=== PATIENT | female | born 1950 | race Caucasian/White ===

== ENCOUNTER 2019-01-02 23:22 | Inpatient (IN) | payer MEDICARE, OTHER ==
--- NOTE | 2019-01-02 23:31 | ED ---
Abdominal Pain HPI - General Stated Complaint: Bowel obstruction Time Seen by Provider: 01/02/19 23:29 Source: RN notes reviewed, old records reviewed - History of Present Illness Initial Comments: This is a 60-year-old female the ER for evaluation. Patient was essay for evaluation regarding abdominal pain distention nausea and vomiting. Patient is accepted in transfer from outside facility for evaluation treatment regarding small bowel obstruction. Patient has no fevers, no other change in symptoms MD Complaint: abdominal pain -: days(s) Location: diffuse, epigastric, suprapubic Radiation: epigastric, suprapubic Severity: severe Severity scale (1-10): 9 Quality: stabbing, aching Consistency: intermittent Improves With: nothing Worsens With: nothing Associated Symptoms: nausea, vomiting Treatments Prior to Arrival: prescription analgesics - Related Data Home Medications Medication Instructions Recorded Confirmed ALPRAZolam [Xanax] 0.5 mg PO TID PRN 01/02/19 01/02/19 Aspirin EC [Ecotrin Low Dose] 81 mg PO DAILY 01/02/19 01/02/19 Capecitabine [Xeloda] 500 mg PO TID 01/02/19 01/02/19 Dronabinol [Marinol] 5 mg PO DAILY 01/02/19 01/02/19 HYDROcodone/APAP 7.5-325MG [[place] 1 tab PO BID PRN 01/02/19 01/02/19 7.5-325] Metoclopramide HCl [Reglan] 5 mg PO BID 01/02/19 01/02/19 Morphine Sulfate Ir [MSIR] 15 mg PO Q4H PRN 01/02/19 01/02/19 Pantoprazole Sodium [Protonix] 40 mg PO DAILY 01/02/19 01/02/19 Zolpidem Tartrate [Ambien Cr] 12.5 mg PO HS 01/02/19 01/02/19 Allergies Allergy/AdvReac Type Severity Reaction Status Date / Time No Known Allergies Allergy Unverified 01/02/19 23:53 Review of Systems ROS Statement: Those systems with pertinent positive or pertinent negative responses have been documented in the HPI. ROS Other: All systems not noted in ROS Statement are negative. General Exam General appearance: alert, in no apparent distress, anxious Head exam: Present: atraumatic, normocephalic, normal inspection Eye exam: Present: normal appearance, PERRL, EOMI. Absent: scleral icterus, conjunctival injection, periorbital swelling ENT exam: Present: normal exam, mucous membranes moist Neck exam: Present: normal inspection. Absent: tenderness, meningismus, lymphadenopathy Respiratory exam: Present: normal lung sounds bilaterally. Absent: respiratory distress, wheezes, rales, rhonchi, stridor Cardiovascular Exam: Present: regular rate, normal rhythm, normal heart sounds. Absent: systolic murmur, diastolic murmur, rubs, gallop, clicks GI/Abdominal exam: Present: soft, distended, tenderness, normal bowel sounds. Absent: guarding, rebound, rigid Extremities exam: Present: normal inspection, full ROM, normal capillary refill. Absent: tenderness, pedal edema, joint swelling, calf tenderness Back exam: Present: normal inspection Neurological exam: Present: alert, oriented X3, CN II-XII intact Psychiatric exam: Present: normal affect, normal mood Skin exam: Present: warm, dry, intact, normal color. Absent: rash Course Vital Signs 01/02/19 23:31 Temperature 98.4 F Pulse Rate 76 Respiratory 16 Rate Blood Pressure 126/80 O2 Sat by Pulse 99 Oximetry - Reevaluation(s) Reevaluation #1: 01/03/19 00:47 Medical record and transfer paperwork Reevaluation #2: 01/03/19 00:47 Patient is still with persistent nausea vomiting and abdominal pain Medical Decision Making - Medical Decision Making 68 female the ER for evaluation, patient will be admitted as she is accepted for small bowel obstruction. Disposition Clinical Impression: Small bowel obstruction Disposition: ADMITTED IP TO [facility] Condition: Fair Is patient prescribed a controlled substance at d/c from ED?: No Referrals: None,Stated [Primary Care Provider] - 1-2 days
[2019-01-03] MEDS ORDERED: ONDANSETRON 4 MG/2 ML VIAL IVP STA (00:02)
[2019-01-03] MEDS ORDERED: HYDROmorphone 1 MG/ML 1 ML SYRINGE IVP STA (00:02)
[2019-01-03] MEDS ORDERED: PANTOPRAZOLE 40 MG/10 ML VIAL IVP STA (00:48)
[2019-01-03] MEDS ORDERED: SODIUM CHLORIDE 0.9% 1,000 ML IV ONE (00:48)
[2019-01-03 03:18] VITALS: BMI 19.9
[2019-01-03] MEDS: ALPRAZolam 0.5 MG TAB PO PRN ×2 (03:32→22:34)
[2019-01-03] MEDS: ZOLPIDEM 10 MG TAB PO PRN ×2 (03:32→22:34)
[2019-01-03] MEDS: POTASSIUM CHLORIDE 10 MEQ in WATER FOR INJECTION 1 100ML.BAG IVPB SCH ×4 (04:42→11:02)
--- NOTE | 2019-01-03 06:34 | P.HPIM ---
History of Present Illness H&P Date: 01/03/19 Chief Complaint: Small bowel obstruction 68-year-old female with history of stage IV breast cancer Patient transferred from [facility] to our facility for general surgery evaluation due to small bowel obstruction. Patient comes in today with 3 day history of GI symptoms, started with nausea and vomiting brownish in color denies coffee-ground vomiting denies hematemesis was associated with abdominal pain and cramping and then vomiting resolved however pain persisted and got worse patient has poor appetite and now is associated with very frequent diarrhea nonstop again nonbloody non-melanotic. Patient describes the pain as sharp crampy pain mainly in the epigastric region and radiates slightly down 8 out of 10 in severity gets worse with eating anything and eases down with bowel rest. She only vomited couple times initially but she says now she has no vomiting. Denies any fevers but she is always having chills. She had bowel obstruction in the past due to adhesions. At [facility] blood test was unremarkable except for some hypokalemia and chronic anemia. CT of the abdomen showed multiple masses in the large bowel and soft tissue encasement of the aorta celiac trunk and SMA arteries Along with right nephroureteral stent with questionable function at this point. Patient was admitted for general surgery evaluation and management of SBO Review of Systems Pertinent positives as noted in HPI. All other systems were reviewed and are negative Past Medical History Additional Past Medical History / Comment(s): stage 4 breast CA History of Any Multi-Drug Resistant Organisms: None Reported Additional Past Surgical History / Comment(s): MAsectomy, abdominal surg Past Psychological History: No Psychological Hx Reported Smoking Status: Never smoker Past Alcohol Use History: None Reported Past Drug Use History: None Reported - Past Family History Father Family Medical History: Cancer Mother Family Medical History: Cancer Medications and Allergies Home Medications Medication Instructions Recorded Confirmed Type ALPRAZolam [Xanax] 0.5 mg PO TID PRN 01/02/19 01/02/19 History Aspirin EC [Ecotrin Low Dose] 81 mg PO DAILY 01/02/19 01/02/19 History Capecitabine [Xeloda] 500 mg PO TID 01/02/19 01/02/19 History Dronabinol [Marinol] 5 mg PO DAILY 01/02/19 01/02/19 History HYDROcodone/APAP 7.5-325MG [[place] 1 tab PO BID PRN 01/02/19 01/02/19 History 7.5-325] Metoclopramide HCl [Reglan] 5 mg PO BID 01/02/19 01/02/19 History Morphine Sulfate Ir [MSIR] 15 mg PO Q4H PRN 01/02/19 01/02/19 History Pantoprazole Sodium [Protonix] 40 mg PO DAILY 01/02/19 01/02/19 History Zolpidem Tartrate [Ambien Cr] 12.5 mg PO HS 01/02/19 01/02/19 History Allergies Allergy/AdvReac Type Severity Reaction Status Date / Time No Known Allergies Allergy Unverified 01/02/19 23:53 Physical Exam Vitals: Vital Signs Temp Pulse Resp BP Pulse Ox 01/02/19 23:31 98.4 F 76 16 126/80 99 Intake and Output 01/02/19 01/02/19 01/03/19 14:59 22:59 06:59 Other: Weight 49.442 kg Constitutional: No acute distress, conversant, pleasant, cachectic Eyes: Anicteric sclerae, moist conjunctiva, no lid-lag Pupils equal round reactive to light ENMT: NC/AT Oropharynx clear, no erythema, or exudates Neck: Supple, FROM, no masses, or JVD No carotid bruits No thyromegaly Lungs: Clear to auscultation Clear to percussion Normal respiratory effort, no accessory muscle use Cardiovascular: Heart regular in rate and rhythm, No murmurs, gallops, or rubs No peripheral edema Abdominal: Soft, no distention Diffuse discomfort to deep palpation, no guarding, rebound or rigidity Abdomen moving with respiration Normoactive bowel sounds No hepatomegaly, No splenomegaly No palpable mass No abdominal wall hernia noted Skin: Normal temperature, tone, texture, turgor No induration No subcutaneous nodules No rash, lesions No ulcers Extremities: No digital cyanosis No clubbing Pedal pulses intact and symmetrical Radial pulses intact and symmetrical No calf tenderness Psychiatric: Alert and oriented to person, place and time Appropriate affect fair judgment Neuro Muscles Strength 4/5 in all 4 extremities Sensation to light touch grossly present throughout Cranial nerves II-XII grossly intact No focal sensory deficits Lymphatics: no palpable cervical or supraclavicular , or inguinal lymph nodes Assessment and Plan Assessment: 68-year-old female with history of stage IV breast cancer transferred to our facility for surgical evaluation due to small bowel obstruction patient admitted as an inpatient with anticipated length of stay more than 48 hours. She was also found to have anemia and hypokalemia patient was started on IV fluids and pain control Plan: Small bowel obstruction, stage IV metastatic breast cancer with peritoneal masses, with history of adhesions Nothing by mouth IV fluid hydration General surgery evaluation Pain control Chronic anemia Continue to monitor Patient denies any evidence of bleeding Hypokalemia replace IV Follow-up levels in the morning along with magnesium Acute diarrhea could be post obstructive diarrhea versus C. diff Check C. diff Symptomatic control IV fluid hydration CT findings of soft tissue encasement of the aorta, celiac trunk, and SMA. Also suggested right nephroureteral stent function questionable CODE STATUS: No code DVT prophylaxis: Heparin subcu 3 times a day Discussed with: Patient, ER, RN Anticipated discharge: 48-[address]: Home A total of 60 minutes was spent on the care of this complex patient more than 50% of the time was spent in counseling and care coordination.
[2019-01-03 06:48] LABS: Anisocytosis Marked; Basophils % (A) 1 %; Eosinophils # (A) 0.1 k/uL (0-0.7); Eosinophils % (A) 3 %; HCT 28.9 % (34.0-46.0); HGB 9.4 gm/dL (11.4-16.0); Lymphocytes # (A) 1.3 k/uL (1.0-4.8); Lymphocytes % (A) 28 %; MCH 33.1 pg (25.0-35.0); MCHC 32.6 g/dL (31.0-37.0); MCV 101.7 fL (80.0-100.0); Macrocytosis Marked; Mean Platelet Volume 6.4; Monocytes # (A) 0.4 k/uL (0-1.0); Monocytes % (A) 8 %; Neutrophils # (A) 2.7 k/uL (1.3-7.7); Neutrophils % (A) 58 %; Platelet Count 216 k/uL (150-450); RBC 2.84 m/uL (3.80-5.40); WBC 4.6 k/uL (3.8-10.6)
[2019-01-03 07:02] LABS: ALT 15 U/L (9-52); AST 14 U/L (14-36); African American GFR (CKD) >90 (>60 ml/min/1.73 sqM); Albumin 2.3 g/dL (3.5-5.0); Alkaline Phosphatase 40 U/L (38-126); Anion Gap 7 mmol/L; Blood Urea Nitrogen 9 mg/dL (7-17); Carbon Dioxide 22 mmol/L (22-30); Chloride 104 mmol/L (98-107); Glucose 85 mg/dL (74-99); Magnesium 1.5 mg/dL (1.6-2.3); Phosphorus 3.8 mg/dL (2.5-4.5); Potassium 3.7 mmol/L (3.5-5.1); Sodium 133 mmol/L (137-145); Total Bilirubin 0.2 mg/dL (0.2-1.3); Total Protein 4.7 g/dL (6.3-8.2)
[2019-01-03 07:17] LABS: RDW 26.5 % (11.5-15.5)
[2019-01-03] MEDS ORDERED: HEPARIN SODIUM,PORCINE 5,000 UNIT/ML 1 ML VIAL SQ SCH (08:00)
[2019-01-03] MEDS: HYDROmorphone 1 MG/ML 1 ML SYRINGE IVP PRN ×4 (08:18→22:34)
[2019-01-03] MEDS: ONDANSETRON 4 MG/2 ML VIAL IVP PRN ×2 (08:18→15:53)
[2019-01-03 09:06] LABS: Mixed Population RBC Present
[2019-01-03 09:07] LABS: Poikilocytosis (M) Present
[2019-01-03] MEDS: [UNRECOGNIZED DRUG - OTHER] PO SCH ×3 (13:05→20:46)
[2019-01-03] MEDS: CAPECITABINE 500 MG PO SCH ×3 (13:05→20:46)
--- NOTE | 2019-01-03 13:26 | P.GSCN ---
History of Present Illness Consult date: 01/03/19 Reason for Consult: SBO Requesting physician: Tushar Munoz History of present illness: CHIEF COMPLAINT: SBO HISTORY OF PRESENT ILLNESS: 68 year old female who was transferred from [facility] secondary to abdominal pain. Patient had computed giana ography scan completed at outside facility revealing dilated small bowel loops suggestive of bowel obstruction. Multiple masses in the large bowel may be the cause of this obstruction. Patient reports a history of breast cancer 10-12 years ago. She reports having a mammogram in April 2016 which was negative. She states the following spring she felt a lump in her breast. A biopsy was performed and patient was diagnosed with stage IV metastatic breast cancer. She states she is aware of masses in her abdomen. She follows with Dr. George Clarke out of [facility]. She reports she also has been evaluated at [facility] by Dr. Brice. She is taking oral chemotherapy, Xeloda, 3 times a day. She reports abdominal pain, diarrhea, nausea, and vomiting prior to hospitalization. Patient reports mild nausea this morning. No further emesis. No diarrhea currently. PAST MEDICAL HISTORY: See list. PAST SURGICAL HISTORY: See list. SOCIAL HISTORY: No illicit drug use. REVIEW OF SYSTEMS: CONSTITUTIONAL: Denies fever or chills. HEENT: Denies blurred vision, vision changes, or eye pain. Denies hemoptysis CARDIOVASCULAR: Denies chest pain or pressure. RESPIRATORY: No shortness of breath. GASTROINTESTINAL: Refer to HPI for pertinent findings HEMATOLOGIC: Denies bleeding disorders. GENITOURINARY: Denies any blood in urine. SKIN: Denies pruitis. Denies rash. PHYSICAL EXAM: VITAL SIGNS: Reviewed. GENERAL: Well-developed in no acute distress. HEENT: No sclera icterus. Extraocular movements grossly intact. Moist buccal mucosa. Head is atraumatic, normocephalic. ABDOMEN: Soft. Nondistended. Mild tenderness. Positive bowel sounds. NEUROLOGIC: Alert and oriented. Cranial nerves II through XII grossly intact. ASSESSMENT: 1. Small bowel obstruction 2. Stage IV breast cancer with multiple large masses in colon per CT PLAN: Continue NPO. Continue IV fluids. No NG tube unless patients nausea worsens or she begins vomiting. No surgical intervention recommended. Continue conservative measures and supportive care. Nurse practitioner note has been reviewed by physician. Signing provider agrees with the documented findings, assessment, and plan of care. Past Medical History Past Medical History: Cancer Additional Past Medical History / Comment(s): stage 4 breast CA History of Any Multi-Drug Resistant Organisms: None Reported Past Surgical History: Appendectomy, Cholecystectomy, Hysterectomy Additional Past Surgical History / Comment(s): MAsectomy, abdominal surg Past Psychological History: No Psychological Hx Reported Smoking Status: Never smoker Past Alcohol Use History: None Reported Past Drug Use History: None Reported - Past Family History Father Family Medical History: Cancer Mother Family Medical History: Cancer Medications and Allergies Home Medications Medication Instructions Recorded Confirmed Type ALPRAZolam [Xanax] 0.5 mg PO TID PRN 01/02/19 01/02/19 History Aspirin EC [Ecotrin Low Dose] 81 mg PO DAILY 01/02/19 01/02/19 History Capecitabine [Xeloda] 500 mg PO TID 01/02/19 01/02/19 History Dronabinol [Marinol] 5 mg PO DAILY 01/02/19 01/02/19 History HYDROcodone/APAP 7.5-325MG [[place] 1 tab PO BID PRN 01/02/19 01/02/19 History 7.5-325] Metoclopramide HCl [Reglan] 5 mg PO BID 01/02/19 01/02/19 History Morphine Sulfate Ir [MSIR] 15 mg PO Q4H PRN 01/02/19 01/02/19 History Pantoprazole Sodium [Protonix] 40 mg PO DAILY 01/02/19 01/02/19 History Zolpidem Tartrate [Ambien Cr] 12.5 mg PO HS 01/02/19 01/02/19 History Allergies Allergy/AdvReac Type Severity Reaction Status Date / Time No Known Allergies Allergy Unverified 01/02/19 23:53 Surgical - Exam Vital Signs Temp Pulse Resp BP Pulse Ox 98.4 F 76 16 126/80 99 01/02/19 23:31 01/02/19 23:31 01/02/19 23:31 01/02/19 23:31 01/02/19 23:31 Results - Labs 01/03/19 05:57 01/03/19 05:57 Abnormal Lab Results - Last 24 Hours (Table) 01/03/19 01/03/19 Range/Units 05:57 05:57 RBC 2.84 L (3.80-5.40) m/uL Hgb 9.4 L (11.4-16.0) gm/dL Hct 28.9 L (34.0-46.0) % MCV 101.7 H (80.0-100.0) fL RDW 26.5 H (11.5-15.5) % Macrocytosis Marked A Sodium 133 L (137-145) mmol/L Creatinine 0.41 L (0.52-1.04) mg/dL Calcium 8.0 L (8.4-10.2) mg/dL Magnesium 1.5 L (1.6-2.3) mg/dL Total Protein 4.7 L (6.3-8.2) g/dL Albumin 2.3 L (3.5-5.0) g/dL Diabetes panel 01/03/19 Range/Units 05:57 Sodium 133 L (137-145) mmol/L Potassium 3.7 (3.5-5.1) mmol/L Chloride 104 (98-107) mmol/L Carbon Dioxide 22 (22-30) mmol/L BUN 9 (7-17) mg/dL Creatinine 0.41 L (0.52-1.04) mg/dL Glucose 85 (74-99) mg/dL Calcium 8.0 L (8.4-10.2) mg/dL AST 14 (14-36) U/L ALT 15 (9-52) U/L Alkaline Phosphatase 40 (38-126) U/L Total Protein 4.7 L (6.3-8.2) g/dL Albumin 2.3 L (3.5-5.0) g/dL Calcium panel 01/03/19 Range/Units 05:57 Calcium 8.0 L (8.4-10.2) mg/dL Phosphorus 3.8 (2.5-4.5) mg/dL Albumin 2.3 L (3.5-5.0) g/dL Pituitary panel 01/03/19 Range/Units 05:57 Sodium 133 L (137-145) mmol/L Potassium 3.7 (3.5-5.1) mmol/L Chloride 104 (98-107) mmol/L Carbon Dioxide 22 (22-30) mmol/L BUN 9 (7-17) mg/dL Creatinine 0.41 L (0.52-1.04) mg/dL Glucose 85 (74-99) mg/dL Calcium 8.0 L (8.4-10.2) mg/dL Adrenal panel 01/03/19 Range/Units 05:57 Sodium 133 L (137-145) mmol/L Potassium 3.7 (3.5-5.1) mmol/L Chloride 104 (98-107) mmol/L Carbon Dioxide 22 (22-30) mmol/L BUN 9 (7-17) mg/dL Creatinine 0.41 L (0.52-1.04) mg/dL Glucose 85 (74-99) mg/dL Calcium 8.0 L (8.4-10.2) mg/dL Total Bilirubin 0.2 (0.2-1.3) mg/dL AST 14 (14-36) U/L ALT 15 (9-52) U/L Alkaline Phosphatase 40 (38-126) U/L Total Protein 4.7 L (6.3-8.2) g/dL Albumin 2.3 L (3.5-5.0) g/dL
--- NOTE | 2019-01-03 15:05 | P.GSCN ---
History of Present Illness Consult date: 01/03/19 Reason for Consult: Hydronephrosis Requesting physician: Dennys Brito History of present illness: The patient is a 68 year old woman with Stage IV breast cancer. She has a right ureteral stent, which was placed by Dr. Mota approximately 10 weeks ago. Her regular urologist is Dr. Gauthier at [facility]. She experienced urgency with incontinence following stent placement, but this has improved with the use of Myrbetriq. The stent is to be removed on 01/25/2019. She recently moved from [place] to [place]. She was admitted with a 3 day history of abdominal pain and distension, nausea and vomiting. She has a history of bowel obstruction in the past due to adhesions. CT of the abdomen showed multiple masses in the large bowel and soft tissue encasement of the aorta celiac trunk and SMA arteries. The right ureteral stent is noted to be properly positioned. There is evidence of right hydronephrosis, but contrast uptake and excretion is symmetrical. She denies flank pain. Review of Systems - Constitutional Reports chills, Denies fever - Gastrointestinal Reports abdominal pain, Reports nausea, Reports vomiting - Genitourinary Genitourinary: Denies flank pain Past Medical History Past Medical History: Cancer Additional Past Medical History / Comment(s): stage 4 breast CA History of Any Multi-Drug Resistant Organisms: None Reported Past Surgical History: Appendectomy, Cholecystectomy, Hysterectomy Additional Past Surgical History / Comment(s): MAsectomy, abdominal surg Past Psychological History: No Psychological Hx Reported Smoking Status: Never smoker Past Alcohol Use History: None Reported Past Drug Use History: None Reported - Past Family History Father Family Medical History: Cancer Mother Family Medical History: Cancer Medications and Allergies Home Medications Medication Instructions Recorded Confirmed Type ALPRAZolam [Xanax] 0.5 mg PO TID PRN 01/02/19 01/02/19 History Aspirin EC [Ecotrin Low Dose] 81 mg PO DAILY 01/02/19 01/02/19 History Capecitabine [Xeloda] 500 mg PO TID 01/02/19 01/02/19 History Dronabinol [Marinol] 5 mg PO DAILY 01/02/19 01/02/19 History HYDROcodone/APAP 7.5-325MG [[place] 1 tab PO BID PRN 01/02/19 01/02/19 History 7.5-325] Metoclopramide HCl [Reglan] 5 mg PO BID 01/02/19 01/02/19 History Morphine Sulfate Ir [MSIR] 15 mg PO Q4H PRN 01/02/19 01/02/19 History Pantoprazole Sodium [Protonix] 40 mg PO DAILY 01/02/19 01/02/19 History Zolpidem Tartrate [Ambien Cr] 12.5 mg PO HS 01/02/19 01/02/19 History Allergies Allergy/AdvReac Type Severity Reaction Status Date / Time No Known Allergies Allergy Unverified 01/02/19 23:53 Surgical - Exam Vital Signs Temp Pulse Resp BP Pulse Ox 98.4 F 76 16 126/80 99 01/02/19 23:31 01/02/19 23:31 01/02/19 23:31 01/02/19 23:31 01/02/19 23:31 - General well developed, well nourished, no distress - Respiratory normal respiratory effort - Abdomen Abdomen: soft, non tender, no guarding, no rigid, no rebound - Psychiatric oriented to time, oriented to person, oriented to place, speech is normal, memory intact Results - Labs 01/03/19 05:57 01/03/19 05:57 Abnormal Lab Results - Last 24 Hours (Table) 01/03/19 01/03/19 Range/Units 05:57 05:57 RBC 2.84 L (3.80-5.40) m/uL Hgb 9.4 L (11.4-16.0) gm/dL Hct 28.9 L (34.0-46.0) % MCV 101.7 H (80.0-100.0) fL RDW 26.5 H (11.5-15.5) % Macrocytosis Marked A Sodium 133 L (137-145) mmol/L Creatinine 0.41 L (0.52-1.04) mg/dL Calcium 8.0 L (8.4-10.2) mg/dL Magnesium 1.5 L (1.6-2.3) mg/dL Total Protein 4.7 L (6.3-8.2) g/dL Albumin 2.3 L (3.5-5.0) g/dL Diabetes panel 01/03/19 Range/Units 05:57 Sodium 133 L (137-145) mmol/L Potassium 3.7 (3.5-5.1) mmol/L Chloride 104 (98-107) mmol/L Carbon Dioxide 22 (22-30) mmol/L BUN 9 (7-17) mg/dL Creatinine 0.41 L (0.52-1.04) mg/dL Glucose 85 (74-99) mg/dL Calcium 8.0 L (8.4-10.2) mg/dL AST 14 (14-36) U/L ALT 15 (9-52) U/L Alkaline Phosphatase 40 (38-126) U/L Total Protein 4.7 L (6.3-8.2) g/dL Albumin 2.3 L (3.5-5.0) g/dL Calcium panel 01/03/19 Range/Units 05:57 Calcium 8.0 L (8.4-10.2) mg/dL Phosphorus 3.8 (2.5-4.5) mg/dL Albumin 2.3 L (3.5-5.0) g/dL Pituitary panel 01/03/19 Range/Units 05:57 Sodium 133 L (137-145) mmol/L Potassium 3.7 (3.5-5.1) mmol/L Chloride 104 (98-107) mmol/L Carbon Dioxide 22 (22-30) mmol/L BUN 9 (7-17) mg/dL Creatinine 0.41 L (0.52-1.04) mg/dL Glucose 85 (74-99) mg/dL Calcium 8.0 L (8.4-10.2) mg/dL Adrenal panel 01/03/19 Range/Units 05:57 Sodium 133 L (137-145) mmol/L Potassium 3.7 (3.5-5.1) mmol/L Chloride 104 (98-107) mmol/L Carbon Dioxide 22 (22-30) mmol/L BUN 9 (7-17) mg/dL Creatinine 0.41 L (0.52-1.04) mg/dL Glucose 85 (74-99) mg/dL Calcium 8.0 L (8.4-10.2) mg/dL Total Bilirubin 0.2 (0.2-1.3) mg/dL AST 14 (14-36) U/L ALT 15 (9-52) U/L Alkaline Phosphatase 40 (38-126) U/L Total Protein 4.7 L (6.3-8.2) g/dL Albumin 2.3 L (3.5-5.0) g/dL Assessment and Plan Plan: I explained to the patient that the mere presence of hydronephrosis does not indicate that the ureteral stent is malfunctioning. Given the lack of flank pain, normal serum creatinine level, and symmetrical uptake and excretion of IV contrast noted on CT scan, I do not suspect that the stent is malfunctioning. I have suggested she follow up with Dr. Gauthier as planned. She indicated that she may wish to transfer her urologic care to me, given that she recently moved to [place], and I provided her with my card to schedule a follow-up appointment as an outpatient. Please notify me if I can be of any further assistance during this hospitalization. Time with Patient: Greater than 30
--- NOTE | 2019-01-03 15:10 | P.PN ---
Subjective Progress Note Date: 01/03/19 The patient is a 68-year-old female with a PMH of multiple abdominal procedures (cholecystectomy, appendectomy, hysterectomy), multiple small bowel obstructions, stage IV metastatic breast cancer (follows at [facility], w/ mets in large bowel) currently on Xeloda oral chemotherapy oral chemotherapy, presented to the ED as a transfer from [facility] with complaints of abdominal pain, vomiting, and diarrhea. The patient noted that her symptoms started suddenly yesterday which prompted her to go to the [facility]. She notes that her symptoms are similar to her previous episodes of SBOs. She noted that she previously was having diarrhea yesterday, multiple bouts, though states that it has resolved since this morning. She also denied any additional episodes of vomiting since this morning. Deneid fever or chills. She notes that her pain was 4/10 at the time of interview, nonradiating, epigastric, cramping in nature. Patient had undergone extensive evaluation at [facility] CT abd had showed multiple masses in large bowel. The patient was subsequently admitted to our service for evaluation by surgery. Objective - Vital Signs Vital signs: Vital Signs Temp 98.3 F 01/03/19 07:19 Pulse 73 01/03/19 07:19 Resp 16 01/03/19 07:19 BP 90/55 01/03/19 07:19 Pulse Ox 98 01/03/19 07:19 Intake & Output 01/02/19 01/03/19 01/03/19 18:59 06:59 18:59 Weight 49.442 kg Other: # Voids 2 - Exam General: Non-toxic, in no acute distress, appears stated age, normal weight HEENT: NC/AT, anicteric sclerae, moist conjunctiva, no lid-lag, PERRLA Cardiovascular: S1/S2 wnl, no murmurs, rubs, or gallops Lungs: Clear to auscultation, normal respiratory effort, no accessory muscle use Abdominal: Soft, mild epigastric tenderness to palpation, non-distended, no guarding, rebound, or rigidity Skin: Warm, dry Extremities: No edema or contractures Psychiatric: Alert and oriented to person, place and time, appropriate affect Neuro: CN II-XII grossly intact, Strength 5/5 in all 4 extremities, Speech intact, Sensation to light touch grossly intact throughout - Labs CBC & Chem 7: 01/03/19 05:57 01/03/19 05:57 Labs: Abnormal Lab Results - Last 24 Hours (Table) 01/03/19 01/03/19 Range/Units 05:57 05:57 RBC 2.84 L (3.80-5.40) m/uL Hgb 9.4 L (11.4-16.0) gm/dL Hct 28.9 L (34.0-46.0) % MCV 101.7 H (80.0-100.0) fL RDW 26.5 H (11.5-15.5) % Macrocytosis Marked A Sodium 133 L (137-145) mmol/L Creatinine 0.41 L (0.52-1.04) mg/dL Calcium 8.0 L (8.4-10.2) mg/dL Magnesium 1.5 L (1.6-2.3) mg/dL Total Protein 4.7 L (6.3-8.2) g/dL Albumin 2.3 L (3.5-5.0) g/dL Assessment and Plan Plan: Small bowel obstruction, in setting of stage IV metastatic breast cancer and multiple abdominal surgeries with adhesions -Surgery recommendations appreciated -Continue with nothing by mouth for now -NG tube if the patient begins to vomit -Pain control -IVFs Hyponatremia -Monitor for now Chronic anemia -Monitor for now -No signs of active bleeding -Stable Diarrhea, resolved Hypokalemia, resolved Protein calorie malnutrition -In setting of stage IV malignancy undergoing chemotherapy DVT prophylaxis Lovenox Discussed with: Patient Anticipated discharge date: 1-[address]: Home A total of 35 minutes was spent on the care of this complex patient more than 50% of the time was spent in counseling and care coordination.
[2019-01-04] MEDS: CAPECITABINE 500 MG PO SCH ×3 (08:05→21:08)
[2019-01-04] MEDS: [UNRECOGNIZED DRUG - OTHER] PO SCH ×3 (08:05→21:08)
[2019-01-04] MEDS: ENOXAPARIN 40 MG/0.4 ML SYRINGE SQ SCH (08:05)
[2019-01-04] MEDS: HYDROmorphone 1 MG/ML 1 ML SYRINGE IVP PRN ×4 (09:22→22:16)
[2019-01-04] MEDS: ONDANSETRON 4 MG/2 ML VIAL IVP PRN ×2 (09:22→18:26)
--- NOTE | 2019-01-04 13:43 | P.PN ---
Subjective Progress Note Date: 01/04/19 Principal diagnosis: SBO Patient was seen and examined. No acute events overnight. Patient reports resolution of her abdominal pain. No nausea or vomiting. No bowel movement t victorino but passing gas. She denies any chest pain, shortness of breath or palpitations. Objective - Vital Signs Vital signs: Vital Signs Temp 98.0 F 01/04/19 07:00 Pulse 70 01/04/19 07:00 Resp 15 01/04/19 07:00 BP 97/61 01/04/19 07:00 Pulse Ox 98 01/04/19 07:00 Intake & Output 01/03/19 01/04/19 01/04/19 18:59 06:59 18:59 Intake Total 350 Balance 350 Intake: Intake, IV Titration 350 Amount Sodium Chloride 0.9% 1, 350 000 ml @ 100 mls/hr IV . Q10H ONE Rx#:[id number] Other: Voiding Method Toilet # Voids 2 1 - Exam General: [non toxic], [no distress], [appears at stated age] Derm: [warm], [dry] Head: [atraumatic], [normocephalic], [symmetric] Eyes: [EOMI], [no lid lag], [anicteric sclera] Mouth: [no lip lesion], [mucus membranes moist] Cardiovascular: [S1S2 reg], [no murmur], [positive DP pulse bilateral], Lungs: [CTA bilateral], [no rhonchi, no rales] , [no accessory muscle use] Abdominal: [soft], [ nontender to palpation, positive bowel sounds], [no guarding], [no appreciable organomegaly] Ext: [no gross muscle atrophy], [no edema], [no contractures] Neuro: [no focal neuro deficits] Psych: [Alert], [oriented], [appropriate affect] - Labs CBC & Chem 7: 01/03/19 05:57 01/03/19 05:57 Assessment and Plan Assessment: Small bowel obstruction in the setting of stage IV metastatic breast cancer multiple abdominal surgeries with adhesions Hyponatremia Anemia Protein calorie malnutrition Plans: Clear liquid diet and advance. Zofran as needed for nausea and vomiting. Follow surgery recommendations. Related to dehydration. Given IVF. Plans: BMP tomorrow morning. Hemoglobin 9.4. Stable. Macrocytic. Plans: CBC tomorrow morning. BMI 19.9. Plans: Dietitian consult. Plans to observe overnight. Advance to full liquid diet this evening. DC tomorrow if symptoms improved.
--- NOTE | 2019-01-04 15:33 | P.PN ---
Subjective Progress Note Date: 01/04/19 CHIEF COMPLAINT: SBO HISTORY OF PRESENT ILLNESS: Patient seen and examined this morning at the bedside. She reports resolution of abdominal pain. She denies nausea or vomiting. She reports passing flatus. Denies BM. She is requesting to be started on a diet. PHYSICAL EXAM: VITAL SIGNS: Reviewed. GENERAL: Well-developed in no acute distress. HEENT: No sclera icterus. Extraocular movements grossly intact. Moist buccal mucosa. Head is atraumatic, normocephalic. ABDOMEN: Soft. Nondistended. Nontender. Positive bowel sounds. NEUROLOGIC: Alert and oriented. Cranial nerves II through XII grossly intact. ASSESSMENT: 1. Small bowel obstruction 2. Stage IV breast cancer with multiple large masses in colon per CT PLAN: Begin clear liquid diet. Advance as tolerated to full liquid No surgical intervention recommended. Continue conservative measures and supportive care. If patient tolerates diet without increased abdominal pain or nausea, she may be discharged home from a surgical standpoint. Nurse practitioner note has been reviewed by physician. Signing provider agrees with the documented findings, assessment, and plan of care. Objective - Vital Signs Vital signs: Vital Signs Temp 98.0 F 01/04/19 07:00 Pulse 70 01/04/19 07:00 Resp 15 01/04/19 07:00 BP 97/61 01/04/19 07:00 Pulse Ox 98 01/04/19 07:00 Intake & Output 01/03/19 01/04/19 01/04/19 18:59 06:59 18:59 Intake Total 350 Balance 350 Intake: Intake, IV Titration 350 Amount Sodium Chloride 0.9% 1, 350 000 ml @ 100 mls/hr IV . Q10H ONE Rx#:[id number] Other: Voiding Method Toilet # Voids 2 1 1 - Labs CBC & Chem 7: 01/03/19 05:57 01/03/19 05:57
[2019-01-04] MEDS: ALPRAZolam 0.5 MG TAB PO PRN (22:16)
[2019-01-04] MEDS: ZOLPIDEM 10 MG TAB PO PRN (22:16)
[2019-01-05 07:42] VITALS: BP 107/71; PULSE 69; RESP 15; TEMP 98.3
[2019-01-05 08:27] LABS: Anisocytosis Marked; HCT 28.3 % (34.0-46.0); HGB 9.4 gm/dL (11.4-16.0); MCH 33.8 pg (25.0-35.0); MCHC 33.2 g/dL (31.0-37.0); MCV 102.1 fL (80.0-100.0); Macrocytosis Marked; Mean Platelet Volume 6.6; Platelet Count 241 k/uL (150-450); RBC 2.77 m/uL (3.80-5.40); WBC 4.3 k/uL (3.8-10.6)
[2019-01-05 08:41] LABS: African American GFR (CKD) >90 (>60 ml/min/1.73 sqM); Anion Gap 3 mmol/L; Blood Urea Nitrogen 5 mg/dL (7-17); Calcium 8.3 mg/dL (8.4-10.2); Carbon Dioxide 27 mmol/L (22-30); Chloride 104 mmol/L (98-107); Glucose 79 mg/dL (74-99); Sodium 134 mmol/L (137-145)
[2019-01-05 08:43] LABS: RDW 25.7 % (11.5-15.5)
[2019-01-05] MEDS ORDERED: Potassium Replacement Protocol 1 EACH MISC MISCELLANE PRN (08:56)
[2019-01-05] MEDS ORDERED: POTASSIUM CHLORIDE 60 MEQ in WATER FOR INJECTION 1 100ML.BAG IVPB STA (08:57)
[2019-01-05] MEDS ORDERED: POTASSIUM CHLORIDE ER 20 MEQ TAB.ER PO STA (09:12)
--- NOTE | 2019-01-05 09:13 | P.DS ---
Providers Date of admission: 01/03/19 00:49 Expected date of discharge: 01/05/19 Attending physician: Dennys Brito MD Consults: 01/03/19 00:48 Consult Physician Routine Consulting Provider: Sunny Nunez Consult Reason/Comments: sbo Do you want consulting provider notified?: Yes 01/03/19 06:43 Consult Physician Routine Consulting Provider: Codey Stevenson Consult Reason/Comments: uretral stent right , ?functional Do you want consulting provider notified?: Yes Primary care physician: Stated None Hospital Course: The patient is a 68-year-old female with a PMH of multiple abdominal procedures (cholecystectomy, appendectomy, hysterectomy), multiple small bowel obstructions, stage IV metastatic breast cancer (follows at [facility], w/ mets in large bowel) currently on Xeloda oral chemotherapy oral chemotherapy, presented to the ED as a transfer from [facility] with complaints of abdominal pain, vomiting, and diarrhea. The patient noted that her symptoms started suddenly yesterday which prompted her to go to the [facility]. She notes that her symptoms are similar to her previous episodes of SBOs. She noted that she previously was having diarrhea yesterday, multiple bouts, though states that it has resolved since this morning. She also denied any additional episodes of vomiting since this morning. Deneid fever or chills. She notes that her pain was 4/10 at the time of interview, nonradiating, epigastric, cramping in nature. Patient had undergone extensive evaluation at [facility] CT abd had showed multiple masses in large bowel. The patient was subsequently admitted to our service for evaluation by surgery. Patient was admitted for small bowel obstruction in the setting of stage IV metastatic breast cancer with multiple abdominal surgeries and adhesions. Gen. surgery was consulted and recommended conservative management. Patient was initially nothing by mouth, transitioned to clear liquid diet and advanced. She was given Zofran as needed for nausea or vomiting. Patient showed considerable improvement throughout her hospitalization. Patient seen and examined prior to discharge. No acute events overnight. Patient reports resolution of her abdominal pain. Complains of minor nausea overnight. Able to tolerate small amounts of full liquid. No fever or chills. No vomiting. States wants to follow with Oncology here. General: [non toxic], [no distress], [appears at stated age] Derm: [warm], [dry] Head: [atraumatic], [normocephalic], [symmetric] Eyes: [EOMI], [no lid lag], [anicteric sclera] Mouth: [no lip lesion], [mucus membranes moist] Cardiovascular: [S1S2 reg], [no murmur], [positive DP pulse bilateral], Lungs: [CTA bilateral], [no rhonchi, no rales] , [no accessory muscle use] Abdominal: [soft], [ nontender to palpation, positive bowel sounds], [no guarding], [no appreciable organomegaly] Ext: [no gross muscle atrophy], [no edema], [no contractures] Neuro: [no focal neuro deficits] Psych: [Alert], [oriented], [appropriate affect] Small bowel obstruction in the setting of stage IV metastatic breast cancer multiple abdominal surgeries with adhesions Hyponatremia Hypokalemia Anemia Protein calorie malnutrition Plans: Full liquid diet and advance. Zofran as needed for nausea and vomiting. Cleared by general surgery. Sodium 133-134. Related to dehydration. Given IVF. Plans: Improved. Potassium 3.0. Replaced 60 mEq IV. Plans: Repeat potassium at noon. Hemoglobin 9.4 2. Macrocytic. Plans: Stable. BMI 19.9. Plans: Dietitian consult. Replace potassium. Recheck at noon. Cleared by surgery. DC today of potassium normalized. This complex discharge took greater than 45 minutes. Patient Condition at Discharge: Stable Plan - Discharge Summary Discharge Rx Participant: No New Discharge Prescriptions: Continue Morphine Sulfate Ir [MSIR] 15 mg PO Q4H PRN PRN Reason: Severe Pain ALPRAZolam [Xanax] 0.5 mg PO TID PRN PRN Reason: Anxiety HYDROcodone/APAP 7.5-325MG [[place] 7.5-325] 1 tab PO BID PRN PRN Reason: Pain Pantoprazole Sodium [Protonix] 40 mg PO DAILY Dronabinol [Marinol] 5 mg PO DAILY Capecitabine [Xeloda] 500 mg PO TID Aspirin EC [Ecotrin Low Dose] 81 mg PO DAILY Zolpidem Tartrate [Ambien Cr] 12.5 mg PO HS Metoclopramide HCl [Reglan] 5 mg PO BID Discharge Medication List ALPRAZolam [Xanax] 0.5 mg PO TID PRN 01/02/19 [History] Aspirin EC [Ecotrin Low Dose] 81 mg PO DAILY 01/02/19 [History] Capecitabine [Xeloda] 500 mg PO TID 01/02/19 [History] Dronabinol [Marinol] 5 mg PO DAILY 01/02/19 [History] HYDROcodone/APAP 7.5-325MG [[place] 7.5-325] 1 tab PO BID PRN 01/02/19 [History] Metoclopramide HCl [Reglan] 5 mg PO BID 01/02/19 [History] Morphine Sulfate Ir [MSIR] 15 mg PO Q4H PRN 01/02/19 [History] Pantoprazole Sodium [Protonix] 40 mg PO DAILY 01/02/19 [History] Zolpidem Tartrate [Ambien Cr] 12.5 mg PO HS 01/02/19 [History] Follow up Appointment(s)/Referral(s): [facility], [NON-STAFF] - (Home care will see you after your appointment with Dr. Stroud's nurse Practitioner. ) Demarco Stroud MD [REFERRING] - 01/06/19 1:30 pm (Follow with nurse practitioner, Selin Grewal first and then doctor will have you back to establish as patient.) Bjorn Reeves MD [STAFF PHYSICIAN] - 1 Week Ambulatory/Diagnostic Orders: Basic Metabolic Panel [LAB.AMB] Time Frame: 3 Days, Location: None Selected Activity/Diet/Wound Care/Special Instructions: Follow-up with your PCP within 1-2 days of discharge. Follow-up with your oncologist at [facility] within 1 week of discharge. Take all medications as advised. Discharge Disposition: HOME SELF-CARE
[2019-01-05] MEDS ORDERED: POTASSIUM CHLORIDE 20 MEQ in WATER FOR INJECTION 1 100ML.BAG IVPB SCH (09:15)
[2019-01-05] MEDS ORDERED: POTASSIUM CHLORIDE 20 MEQ in WATER FOR INJECTION 1 100ML.BAG IVPB ONE (09:15)
[2019-01-05] MEDS: ENOXAPARIN 40 MG/0.4 ML SYRINGE SQ SCH (09:25)
[2019-01-05] MEDS: [UNRECOGNIZED DRUG - OTHER] PO SCH (09:25)
[2019-01-05] MEDS: CAPECITABINE 500 MG PO SCH (09:25)
[2019-01-05] MEDS: HYDROmorphone 1 MG/ML 1 ML SYRINGE IVP PRN (12:05)
--- NOTE | 2019-01-05 12:41 | P.PN ---
Subjective Progress Note Date: 01/05/19 CHIEF COMPLAINT: SBO HISTORY OF PRESENT ILLNESS: Patient seen and examined this morning at the bedside. She reports resolution of abdominal pain. She denies nausea or vomiting. She reports passing flatus. she is tolerating full liquid diet. PHYSICAL EXAM: VITAL SIGNS: Reviewed. GENERAL: Well-developed in no acute distress. HEENT: No sclera icterus. Extraocular movements grossly intact. Moist buccal mucosa. Head is atraumatic, normocephalic. ABDOMEN: Soft. Nondistended. Nontender. Positive bowel sounds. NEUROLOGIC: Alert and oriented. Cranial nerves II through XII grossly intact. ASSESSMENT: 1. Small bowel obstruction 2. Stage IV breast cancer with multiple large masses in colon per CT PLAN: Patient is stable for discharge from a surgical standpoint. Patient encouraged to continue full liquid/soft diet at time of discharge. Patient to follow up with Dr. George Clarke out of [place] who has been managing her cancer treatment Nurse practitioner note has been reviewed by physician. Signing provider agrees with the documented findings, assessment, and plan of care. Objective - Vital Signs Vital signs: Vital Signs Temp 98.3 F 01/05/19 07:00 Pulse 69 01/05/19 08:05 Resp 15 01/05/19 08:05 BP 107/71 01/05/19 07:00 Pulse Ox 98 01/05/19 07:00 Intake & Output 01/04/19 01/05/19 01/05/19 18:59 06:59 18:59 Other: Voiding Method Bedside Commode Bedside Commode # Voids 1 1 - Labs CBC & Chem 7: 01/05/19 08:00 01/05/19 08:00 Labs: Abnormal Lab Results - Last 24 Hours (Table) 01/05/19 01/05/19 Range/Units 08:00 08:00 RBC 2.77 L (3.80-5.40) m/uL Hgb 9.4 L (11.4-16.0) gm/dL Hct 28.3 L (34.0-46.0) % MCV 102.1 H (80.0-100.0) fL RDW 25.7 H (11.5-15.5) % Macrocytosis Marked A Sodium 134 L (137-145) mmol/L Potassium 3.0 L (3.5-5.1) mmol/L BUN 5 L (7-17) mg/dL Creatinine 0.48 L (0.52-1.04) mg/dL Calcium 8.3 L (8.4-10.2) mg/dL
== END 2019-01-05 13:56 | disposition home health service (06) | DRG 389 ==
LOC: EC 23:22 → 4SSUR 01-03 00:49
PROVIDERS: ADMIT Internal Medicine; ATTEND Internal Medicine
DX: K56.50 Intestinal adhesions [bands], unspecified as to partial versus complete obstruction (principal); C78.5 Secondary malignant neoplasm of large intestine and rectum; R64 Cachexia; Z68.1 Body mass index [BMI] 19.9 or less, adult; N13.30 Unspecified hydronephrosis; E87.1 Hypo-osmolality and hyponatremia; E46 Unspecified protein-calorie malnutrition; C50.912 Malignant neoplasm of unspecified site of left female breast; E86.0 Dehydration; E87.6 Hypokalemia; D64.9 Anemia, unspecified; Z79.82 Long term (current) use of aspirin; Z79.899 Other long term (current) drug therapy; Z90.49 Acquired absence of other specified parts of digestive tract; Z90.710 Acquired absence of both cervix and uterus; Z80.9 Family history of malignant neoplasm, unspecified
CPT/HCPCS: 80048; 80053; 83735; 84100; 84132; 85025; 85027; 96361; 96374; 96375; 99285

== ENCOUNTER 2019-01-06 16:15 | Inpatient (IN) | payer MEDICARE, OTHER ==
[2019-01-06] MEDS ORDERED: ONDANSETRON 4 MG/2 ML VIAL IVP STA (16:45)
[2019-01-06] MEDS ORDERED: SODIUM CHLORIDE 0.9% 500 ML 500 ML IV STA (16:45)
[2019-01-06] MEDS ORDERED: SODIUM CHLORIDE 0.9% 1,000 ML IV STA (16:45)
[2019-01-06] MEDS ORDERED: HYDROmorphone 1 MG/ML 1 ML SYRINGE IVP STA (16:45)
--- NOTE | 2019-01-06 16:54 | ED ---
Abdominal Pain HPI - General Chief Complaint: Abdominal Pain Stated Complaint: Abd Pain, Nausea Time Seen by Provider: 01/06/19 16:30 Source: patient, family, RN notes reviewed, old records reviewed Mode of arrival: ambulatory Limitations: no limitations - History of Present Illness Initial Comments: 68-year-old female with a history of stage IV metastatic breast cancer who was just discharged yesterday back today for complaints of persistent abdominal pain nausea vomiting and inability to eat. She states the abdominal pain is moderate no diarrhea. She does states she has a history of stage IV breast cancer with spread to her abdominal cavity he's had multiple adhesions in the past she denies any fevers chills or sweats no other modifying factors at this time. She states this feels very similar to her previous presentation which was 7 days ago MD Complaint: abdominal pain - Related Data Home Medications Medication Instructions Recorded Confirmed ALPRAZolam [Xanax] 0.5 mg PO TID PRN 01/02/19 01/06/19 Aspirin EC [Ecotrin Low Dose] 81 mg PO DAILY 01/02/19 01/06/19 Capecitabine [Xeloda] 500 mg PO TID 01/02/19 01/06/19 Metoclopramide HCl [Reglan] 5 mg PO BID 01/02/19 01/06/19 Morphine Sulfate Ir [MSIR] 15 mg PO BID PRN 01/02/19 01/06/19 Zolpidem Tartrate [Ambien Cr] 12.5 mg PO HS 01/02/19 01/06/19 Docusate [Colace] 100 mg PO BID 01/06/19 01/06/19 Mirabegron [Myrbetriq] 50 mg PO DAILY 01/06/19 01/06/19 Allergies Allergy/AdvReac Type Severity Reaction Status Date / Time No Known Allergies Allergy Verified 01/06/19 17:16 Review of Systems ROS Statement: Those systems with pertinent positive or pertinent negative responses have been documented in the HPI. ROS Other: All systems not noted in ROS Statement are negative. Past Medical History Past Medical History: Cancer Additional Past Medical History / Comment(s): stage 4 breast CA History of Any Multi-Drug Resistant Organisms: None Reported Past Surgical History: Appendectomy, Cholecystectomy, Hysterectomy Additional Past Surgical History / Comment(s): MAsectomy, abdominal surg Past Psychological History: No Psychological Hx Reported Smoking Status: Never smoker Past Alcohol Use History: None Reported Past Drug Use History: None Reported - Past Family History Father Family Medical History: Cancer Mother Family Medical History: Cancer General Exam - General Exam Comments Initial Comments: This is a well-developed asthenic appearing female who is awake alert oriented 3 Limitations: no limitations General appearance: alert, in no apparent distress Head exam: Present: atraumatic, normocephalic, normal inspection Eye exam: Present: normal appearance, PERRL, EOMI. Absent: scleral icterus, con junctival injection, periorbital swelling ENT exam: Present: mucous membranes dry Neck exam: Present: normal inspection. Absent: tenderness, meningismus, lymphadenopathy Respiratory exam: Present: normal lung sounds bilaterally. Absent: respiratory distress, wheezes, rales, rhonchi, stridor Cardiovascular Exam: Present: regular rate, normal rhythm, normal heart sounds. Absent: systolic murmur, diastolic murmur, rubs, gallop, clicks GI/Abdominal exam: Present: soft, normal bowel sounds. Absent: distended, tenderness, guarding, rebound, rigid Extremities exam: Present: normal inspection, full ROM, normal capillary refill. Absent: tenderness, pedal edema, joint swelling, calf tenderness Back exam: Present: normal inspection Neurological exam: Present: alert, oriented X3, CN II-XII intact Psychiatric exam: Present: normal affect, normal mood Skin exam: Present: warm, dry, intact, normal color. Absent: rash Course Vital Signs 01/06/19 01/06/19 01/06/19 16:17 18:57 20:32 Temperature 98.0 F Pulse Rate 82 71 70 Respiratory 20 18 16 Rate Blood Pressure 100/67 107/74 110/71 O2 Sat by Pulse 100 100 99 Oximetry Medical Decision Making - Medical Decision Making I did discuss findings with patient family as well as Dr. Cloud patient will be readmitted for IV hydration and pain control. Family is requesting c onsultation with Dr. Reeves - Lab Data Result diagrams: 01/06/19 17:20 01/06/19 17:20 Lab Results 01/06/19 01/06/19 01/06/19 Range/Units 17:20 17:20 17:20 WBC 6.7 (3.8-10.6) k/uL RBC 3.12 L (3.80-5.40) m/uL Hgb 10.5 L (11.4-16.0) gm/dL Hct 32.1 L (34.0-46.0) % MCV 102.9 H (80.0-100.0) fL MCH 33.7 (25.0-35.0) pg MCHC 32.7 (31.0-37.0) g/dL RDW 26.5 H (11.5-15.5) % Plt Count 262 (150-450) k/uL Neutrophils % 71 % Lymphocytes % 18 % Monocytes % 6 % Eosinophils % 3 % Basophils % 0 % Neutrophils # 4.8 (1.3-7.7) k/uL Lymphocytes # 1.2 (1.0-4.8) k/uL Monocytes # 0.4 (0-1.0) k/uL Eosinophils # 0.2 (0-0.7) k/uL Basophils # 0.0 (0-0.2) k/uL Manual Slide Review Performed Polychromasia Present Poikilocytosis (manual Present Anisocytosis Marked Macrocytosis Marked A Sodium 131 L (137-145) mmol/L Potassium 3.7 (3.5-5.1) mmol/L Chloride 98 (98-107) mmol/L Carbon Dioxide 28 (22-30) mmol/L Anion Gap 5 mmol/L BUN 6 L (7-17) mg/dL Creatinine 0.41 L (0.52-1.04) mg/dL Est GFR (CKD-EPI)AfAm >90 (>60 ml/min/1.73 sqM) Est GFR (CKD-EPI)NonAf >90 (>60 ml/min/1.73 sqM) Glucose 94 (74-99) mg/dL Plasma Lactic Acid Gurmeet 1.2 (0.7-2.0) mmol/L Calcium 9.0 (8.4-10.2) mg/dL Total Bilirubin 0.5 (0.2-1.3) mg/dL AST 16 (14-36) U/L ALT 14 (9-52) U/L Alkaline Phosphatase 42 (38-126) U/L Creatine Kinase <20 L (30-135) U/L Total Protein 5.3 L (6.3-8.2) g/dL Albumin 2.8 L (3.5-5.0) g/dL Amylase <30 L (30-110) U/L Lipase 14 L (23-300) U/L - Radiology Data Radiology results: report reviewed (I did review the imaging and report evidence of a ileus), image reviewed Disposition Clinical Impression: Abdominal pain, Dehydration, Ileus, Intractable vomiting, Failure to thrive syndrome, adult, Metastatic breast cancer Disposition: ADMITTED IP TO THIS [facility] Condition: Fair Referrals: Nonstaff,Physician [Primary Care Provider] - 1-2 days
[2019-01-06 17:39] LABS: Anisocytosis Marked; Basophils % (A) 0 %; Eosinophils # (A) 0.2 k/uL (0-0.7); Eosinophils % (A) 3 %; HCT 32.1 % (34.0-46.0); HGB 10.5 gm/dL (11.4-16.0); Lymphocytes # (A) 1.2 k/uL (1.0-4.8); Lymphocytes % (A) 18 %; MCH 33.7 pg (25.0-35.0); MCHC 32.7 g/dL (31.0-37.0); MCV 102.9 fL (80.0-100.0); Macrocytosis Marked; Mean Platelet Volume 6.9; Monocytes # (A) 0.4 k/uL (0-1.0); Monocytes % (A) 6 %; Neutrophils # (A) 4.8 k/uL (1.3-7.7); Neutrophils % (A) 71 %; Platelet Count 262 k/uL (150-450); RBC 3.12 m/uL (3.80-5.40); WBC 6.7 k/uL (3.8-10.6)
[2019-01-06 17:42] LABS: ALT 14 U/L (9-52); AST 16 U/L (14-36); African American GFR (CKD) >90 (>60 ml/min/1.73 sqM); Albumin 2.8 g/dL (3.5-5.0); Alkaline Phosphatase 42 U/L (38-126); Amylase <30 U/L (30-110); Anion Gap 5 mmol/L; Blood Urea Nitrogen 6 mg/dL (7-17); Carbon Dioxide 28 mmol/L (22-30); Chloride 98 mmol/L (98-107); Creatine Kinase <20 U/L (30-135); Glucose 94 mg/dL (74-99); Potassium 3.7 mmol/L (3.5-5.1); Sodium 131 mmol/L (137-145); Total Bilirubin 0.5 mg/dL (0.2-1.3); Total Protein 5.3 g/dL (6.3-8.2)
[2019-01-06 17:43] LABS: RDW 26.5 % (11.5-15.5)
[2019-01-06 18:02] LABS: Poikilocytosis (M) Present; Polychromasia Present
--- NOTE | 2019-01-06 19:32 | XR ---
EXAMINATION TYPE: XR KUB DATE OF EXAM: 01/06/2019 COMPARISON: NONE HISTORY: Abdominal pain TECHNIQUE: 2 views supine and upright FINDINGS: There is right-sided double-J ureteral stent. There is no sign of intestinal obstruction or pneumoperitoneum. There is some gas in large and small bowel loops without significant dilation. The re is elevated left diaphragm. IMPRESSION: There is evidence for mild intestinal ileus. No free air.
[2019-01-06] MEDS ORDERED: NALOXONE 0.4 MG/ML 1 ML VIAL IV PRN (20:42)
[2019-01-06] MEDS ORDERED: MORPHINE SULFATE IR 15 MG TABLET PO PRN (20:44)
[2019-01-06] MEDS ORDERED: ZOLPIDEM 5 MG TAB PO PRN ×2 (21:00→22:45)
[2019-01-06] MEDS: HYDROmorphone 1 MG/ML 1 ML SYRINGE IVP PRN (21:39)
[2019-01-06] MEDS: CAPECITABINE PO SCH (23:57)
[2019-01-06] MEDS: ONDANSETRON 4 MG/2 ML VIAL IVP PRN (23:57)
[2019-01-06] MEDS: DOCUSATE 100 MG CAP PO SCH (23:57)
[2019-01-06] MEDS: ALPRAZolam 0.5 MG TAB PO PRN (23:57)
[2019-01-06] MEDS: SODIUM CHLORIDE 0.9% 1,000 ML IV SCH (23:58)
[2019-01-07] MEDS: METOCLOPRAMIDE 5 MG TAB PO SCH ×3 (00:22→20:40)
--- NOTE | 2019-01-07 01:12 | P.HPIM ---
History of Present Illness H&P Date: 01/06/19 Chief Complaint: Abdominal pain 68-year-old female with history of stage IV breast cancer with metastasis to the abdomen. Patient was recently discharged from our facility just a day ago where she presented for small bowel obstruction was treated conservatively with general surgery consult no intervention was made patient started tolerating liquid diet and was discharged. Today she comes in due to worsening of her symptoms unable to eat for appetite feeling nauseous denies any vomiting denies any GI bleeding denies any diarrhea. Her last bowel movement was while she was at the hospital today she was passing gases in the morning. She reports typical for herself abdominal pain during bouts of small bowel obstruction where she is experiencing central and epigastric abdominal pain nonradiating 8 out of 10 in severity crampy sharp pain worse with eating. This time not associated with vomiting however patient recognizes the symptoms and decided to come to the hospital early on. In the ED blood work was comparable in stable to her last discharge. Her hemoglobin is stable. Renal function stable. She has mild hyponatremia otherwise potassium is within normal limits. Abdominal x-ray suggested ileus. Patient admitted for further management Patient denies any fevers or chills. She is reporting some difficulty passing urine. With incomplete bladder emptying after she is urinating. Reports some mild dysuria, denies any hematuria or foul smell Review of Systems Pertinent positives as noted in HPI. All other systems were reviewed and are negative Past Medical History Past Medical History: Cancer Additional Past Medical History / Comment(s): stage 4 breast CA History of Any Multi-Drug Resistant Organisms: None Reported Past Surgical History: Appendectomy, Cholecystectomy, Hysterectomy Additional Past Surgical History / Comment(s): MAsectomy, abdominal surg Past Psychological History: No Psychological Hx Reported Smoking Status: Never smoker Past Alcohol Use History: None Reported Past Drug Use History: None Reported - Past Family History Father Family Medical History: Cancer Mother Family Medical History: Cancer Medications and Allergies Home Medications Medication Instructions Recorded Confirmed Type ALPRAZolam [Xanax] 0.5 mg PO TID PRN 01/02/19 01/06/19 History Aspirin EC [Ecotrin Low Dose] 81 mg PO DAILY 01/02/19 01/06/19 History Capecitabine [Xeloda] 500 mg PO TID 01/02/19 01/06/19 History Metoclopramide HCl [Reglan] 5 mg PO BID 01/02/19 01/06/19 History Morphine Sulfate Ir [MSIR] 15 mg PO BID PRN 01/02/19 01/06/19 History Zolpidem Tartrate [Ambien Cr] 12.5 mg PO HS 01/02/19 01/06/19 History Docusate [Colace] 100 mg PO BID 01/06/19 01/06/19 History Mirabegron [Myrbetriq] 50 mg PO DAILY 01/06/19 01/06/19 History Allergies Allergy/AdvReac Type Severity Reaction Status Date / Time No Known Allergies Allergy Verified 01/06/19 17:16 Physical Exam Vitals: Vital Signs Temp Pulse Resp BP Pulse Ox 01/06/19 21:42 74 18 122/73 100 01/06/19 20:32 70 16 110/71 99 01/06/19 18:57 71 18 107/74 100 01/06/19 16:17 98.0 F 82 20 100/67 100 Intake and Output 01/06/19 01/06/19 01/06/19 06:59 14:59 22:59 Other: Weight 43.091 kg Constitutional: No acute distress, conversant, pleasant Eyes: Anicteric sclerae, moist conjunctiva, no lid-lag Pupils equal round reactive to light ENMT: NC/AT Oropharynx clear, no erythema, or exudates Neck: Supple, FROM, no masses, or JVD No carotid bruits No thyromegaly Lungs: Clear to auscultation Clear to percussion Normal respiratory effort, no accessory muscle use Cardiovascular: Heart regular in rate and rhythm, No murmurs, gallops, or rubs No peripheral edema Abdominal: Soft, nondistended Tender to palpation over the epigastric and periumbilical region. Patient also having tenderness to deep palpation at the suprapubic region no guarding, rebound or rigidity Abdomen moving with respiration Normoactive bowel sounds No hepatomegaly, No splenomegaly No palpable mass No abdominal wall hernia noted Skin: Normal temperature, tone, texture, turgor No induration No subcutaneous nodules No rash, lesions No ulcers Extremities: No digital cyanosis No clubbing Pedal pulses intact and symmetrical Radial pulses intact and symmetrical No calf tenderness Psychiatric: Alert and oriented to person, place and time Appropriate affect fair judgment Neuro Muscles Strength 4/5 in all 4 extremities Sensation to light touch grossly present throughout Cranial nerves II-XII grossly intact No focal sensory deficits Lymphatics: no palpable cervical or supraclavicular , or inguinal lymph nodes Results CBC & Chem 7: 01/06/19 17:20 01/06/19 17:20 Labs: Abnormal Lab Results - Last 24 Hours (Table) 01/06/19 01/06/19 Range/Units 17:20 17:20 RBC 3.12 L (3.80-5.40) m/uL Hgb 10.5 L (11.4-16.0) gm/dL Hct 32.1 L (34.0-46.0) % MCV 102.9 H (80.0-100.0) fL RDW 26.5 H (11.5-15.5) % Macrocytosis Marked A Sodium 131 L (137-145) mmol/L BUN 6 L (7-17) mg/dL Creatinine 0.41 L (0.52-1.04) mg/dL Creatine Kinase <20 L (30-135) U/L Total Protein 5.3 L (6.3-8.2) g/dL Albumin 2.8 L (3.5-5.0) g/dL Amylase <30 L (30-110) U/L Lipase 14 L (23-300) U/L Assessment and Plan Assessment: 68-year-old female with history of stage IV breast cancer metastases to the abdomen presented to the hospital with abdominal pain typical for her attacks of small bowel obstruction she's feeling nauseated and unable to take by mouth intake. Denies any fevers or chills but reports some urinary symptoms. Abdominal x-ray in the ED suggested ileus. Patient is admitted for further care and management with anticipated length of stay more than 48 hours Plan: Abdominal pain rule out UTI versus recurrent attacks of small bowel obstruction General surgery consult Check UA IV fluid hydration Bowel rest Pain control Follow-up electrolytes and replace as needed Chronic anemia currently stable Denies any evidence of bleeding Continue to monitor hemoglobin DVT prophylaxis heparin subcu 3 times a day Preformed a thorough record review from recent hospitalization for an attack of small bowel obstruction however this was resolved with conservative management and discharged couple days ago CODE STATUS: No code Discussed with: Patient, ER, RN Anticipated discharge: 48-[address]: Home A total of 60 minutes was spent on the care of this complex patient more than 50% of the time was spent in counseling and care coordination.
[2019-01-07] MEDS: SODIUM CHLORIDE 0.9% 1,000 ML IV SCH ×3 (04:58→23:26)
[2019-01-07 07:19] LABS: Appearance,Urine Clear (Clear); Bilirubin,Urine Negative (Negative); Blood,Urine Negative (Negative); Color,Urine Light Yellow; Glucose,Urine (UA) Negative (Negative); Ketones,Urine Negative (Negative); Leukocyte Esterase,Urine Moderate (Negative); Mucus,Urine Rare /hpf; Nitrite,Urine Negative (Negative); PH, Urine 6.5 (5.0-8.0); Protein,Urine Negative (Negative); RBC,Urine 1 /hpf (0-5); Specific Gravity,Urine 1.004 (1.001-1.035); Urobilinogen,Urine <2.0 mg/dL (<2.0); WBC,Urine 8 /hpf (0-5)
[2019-01-07] MEDS: HYDROmorphone 1 MG/ML 1 ML SYRINGE IVP PRN ×5 (07:46→20:41)
[2019-01-07] MEDS: ASPIRIN 81 MG PO SCH (07:47)
[2019-01-07] MEDS: DOCUSATE 100 MG CAP PO SCH ×2 (07:47→20:40)
[2019-01-07] MEDS: HEPARIN SODIUM,PORCINE 5,000 UNIT/ML 1 ML VIAL SQ SCH ×3 (07:48→23:26)
[2019-01-07] MEDS: CAPECITABINE PO SCH ×3 (07:48→20:40)
[2019-01-07] MEDS: Mirabegron [Myrbetriq] PO SCH (07:50)
[2019-01-07] MEDS: ONDANSETRON 4 MG/2 ML VIAL IVP PRN ×2 (10:53→17:38)
[2019-01-07 11:35] LABS: Anisocytosis Marked; Basophils % (A) 1 %; Eosinophils # (A) 0.2 k/uL (0-0.7); Eosinophils % (A) 5 %; HCT 28.6 % (34.0-46.0); HGB 9.1 gm/dL (11.4-16.0); Lymphocytes # (A) 1.1 k/uL (1.0-4.8); Lymphocytes % (A) 25 %; MCH 33.8 pg (25.0-35.0); MCHC 31.8 g/dL (31.0-37.0); MCV 106.2 fL (80.0-100.0); Macrocytosis Marked; Mean Platelet Volume 7.6; Monocytes # (A) 0.3 k/uL (0-1.0); Monocytes % (A) 7 %; Neutrophils # (A) 2.8 k/uL (1.3-7.7); Neutrophils % (A) 62 %; Platelet Count 232 k/uL (150-450); RBC 2.69 m/uL (3.80-5.40); WBC 4.5 k/uL (3.8-10.6)
[2019-01-07 11:40] LABS: RDW 26.1 % (11.5-15.5)
[2019-01-07 11:45] LABS: ALT 13 U/L (9-52); AST 14 U/L (14-36); African American GFR (CKD) >90 (>60 ml/min/1.73 sqM); Albumin 2.3 g/dL (3.5-5.0); Alkaline Phosphatase 35 U/L (38-126); Anion Gap 4 mmol/L; Blood Urea Nitrogen 5 mg/dL (7-17); Carbon Dioxide 26 mmol/L (22-30); Chloride 104 mmol/L (98-107); Glucose 118 mg/dL (74-99); Potassium 3.4 mmol/L (3.5-5.1); Sodium 134 mmol/L (137-145); Total Bilirubin 0.2 mg/dL (0.2-1.3); Total Protein 4.5 g/dL (6.3-8.2)
[2019-01-07] MEDS ORDERED: Potassium Replacement Protocol 1 EACH MISC MISCELLANE PRN ×2 (11:46→12:18)
--- NOTE | 2019-01-07 11:46 | P.PN ---
Subjective Progress Note Date: 01/07/19 Principal diagnosis: ileus Patient was seen and examined. No acute events overnight. Patient able to tolerate clear liquid diet this morning. Able to have a bowel movement after being discharged previously. Currently passing gas. Pain well-controlled with current pain medication. She denies any chest pain, shortness of breath or palpitations. Objective - Vital Signs Vital signs: Vital Signs Temp 97.5 F L 01/07/19 07:15 Pulse 66 01/07/19 07:15 Resp 16 01/07/19 07:40 BP 102/65 01/07/19 07:15 Pulse Ox 99 01/07/19 07:15 Intake & Output 01/06/19 01/07/19 01/07/19 18:59 06:59 18:59 Intake Total 900 400 Balance 900 400 Weight 43.091 kg Intake: Intake, IV Titration 900 Amount Sodium Chloride 0.9% 1, 900 000 ml @ 100 mls/hr IV . Q10H [facility] Rx#:[id number] Oral 400 Other: Voiding Method Bedside Commode Bedside Commode # Voids 1 - Exam General: [non toxic], [no distress], [appears at stated age] Derm: [warm], [dry] Head: [atraumatic], [normocephalic], [symmetric] Eyes: [EOMI], [no lid lag], [anicteric sclera] Mouth: [no lip lesion], [mucus membranes moist] Cardiovascular: [S1S2 reg], [no murmur], [positive DP pulse bilateral], Lungs: [CTA bilateral], [no rhonchi, no rales] , [no accessory muscle use] Abdominal: [soft], [ nontender to palpation, decrease bowel sounds], [no guarding], [no appreciable organomegaly] Ext: [no gross muscle atrophy], [no edema], [no contractures] Neuro: [no focal neuro deficits] Psych: [Alert], [oriented], [appropriate affect] - Labs CBC & Chem 7: 01/07/19 10:45 01/06/19 17:20 Labs: Abnormal Lab Results - Last 24 Hours (Table) 01/06/19 01/06/19 01/07/19 Range/Units 17:20 17:20 06:00 RBC 3.12 L (3.80-5.40) m/uL Hgb 10.5 L (11.4-16.0) gm/dL Hct 32.1 L (34.0-46.0) % MCV 102.9 H (80.0-100.0) fL RDW 26.5 H (11.5-15.5) % Macrocytosis Marked A Sodium 131 L (137-145) mmol/L BUN 6 L (7-17) mg/dL Creatinine 0.41 L (0.52-1.04) mg/dL Creatine Kinase <20 L (30-135) U/L Total Protein 5.3 L (6.3-8.2) g/dL Albumin 2.8 L (3.5-5.0) g/dL Amylase <30 L (30-110) U/L Lipase 14 L (23-300) U/L Ur Leukocyte Esterase Moderate H (Negative) Urine WBC 8 H (0-5) /hpf Urine Mucus Rare H (None) /hpf 01/07/19 Range/Units 10:45 RBC 2.69 L (3.80-5.40) m/uL Hgb 9.1 L (11.4-16.0) gm/dL Hct 28.6 L (34.0-46.0) % MCV 106.2 H (80.0-100.0) fL RDW 26.1 H (11.5-15.5) % Macrocytosis Marked A Sodium (137-145) mmol/L BUN (7-17) mg/dL Creatinine (0.52-1.04) mg/dL Creatine Kinase (30-135) U/L Total Protein (6.3-8.2) g/dL Albumin (3.5-5.0) g/dL Amylase (30-110) U/L Lipase (23-300) U/L Ur Leukocyte Esterase (Negative) Urine WBC (0-5) /hpf Urine Mucus (None) /hpf Assessment and Plan Assessment: Small bowel obstruction versus ileus in the setting of stage IV metastatic breast cancer multiple abdominal surgeries with adhesions Hyponatremia Anemia Protein calorie malnutrition Plans: Clear liquid diet and advance. Zofran as needed for nausea and vomiting. Follow surgery recommendations. Follow oncology recommendations. Related to dehydration. Given IVF. Plans: BMP tomorrow morning. Hemoglobin 9.1. Stable. Macrocytic. Plans: CBC tomorrow morning. BMI 15.8. Plans: Dietitian consult. Plans to observe overnight. Advance to full liquid diet this evening. DC tomorrow if symptoms improved.
--- NOTE | 2019-01-07 12:02 | P.GSCN ---
History of Present Illness Consult date: 01/07/19 Reason for Consult: abdominal pain Requesting physician: Dennys Brito History of present illness: CHIEF COMPLAINT: Abdominal pain, small bowel obstruction HISTORY OF PRESENT ILLNESS: 68-year-old female who was recently hospitalized from 01/03/2019 until 01/05/2019 for small bowel obstruction. Patient has a history of stage IV breast cancer with multiple masses in her colon as visualized on previous computed tomography scan. Patient was treated with conservative management during previous hospitalization and obstruction resolved. Patient states she was doing well after discharge but then she began having increased abdominal pain. She reports taking a rectal suppository with a small bowel movement. She denies further bowel movements since then. She does report she is passing flatus this morning. She denies nausea or vomiting at this time. PAST MEDICAL HISTORY: See list. PAST SURGICAL HISTORY: See list. SOCIAL HISTORY: No illicit drug use. REVIEW OF SYSTEMS: CONSTITUTIONAL: Denies fever or chills. HEENT: Denies blurred vision, vision changes, or eye pain. Denies hemoptysis CARDIOVASCULAR: Denies chest pain or pressure. RESPIRATORY: No shortness of breath. GASTROINTESTINAL: Refer to HPI for pertinent findings HEMATOLOGIC: Denies bleeding disorders. GENITOURINARY: Denies any blood in urine. SKIN: Denies pruitis. Denies rash. PHYSICAL EXAM: VITAL SIGNS: Reviewed. GENERAL: Well-developed in no acute distress. HEENT: No sclera icterus. Extraocular movements grossly intact. Moist buccal mucosa. Head is atraumatic, normocephalic. ABDOMEN: Soft. Nondistended. Nontender. Positive bowel sounds. NEUROLOGIC: Alert and oriented. Cranial nerves II through XII grossly intact. ASSESSMENT: 1. Possible small bowel obstruction 2. Stage IV breast cancer with multiple large masses in colon per CT PLAN: Continue clear liquid diet. Continue IV fluids. No NG tube unless patient begin vomiting. Oncology has been consulted for further evaluation. Patient states she has been following with Dr. Clarke out of [place] but is no longer able to continue care of him due to distance. No surgical intervention recommended. Continue conservative measures and supportive care. Nurse practitioner note has been reviewed by physician. Signing provider agrees with the documented findings, assessment, and plan of care. Past Medical History Past Medical History: Cancer Additional Past Medical History / Comment(s): stage 4 breast CA History of Any Multi-Drug Resistant Organisms: None Reported Past Surgical History: Appendectomy, Cholecystectomy, Hysterectomy Additional Past Surgical History / Comment(s): MAsectomy, abdominal surg Past Anesthesia/Blood Transfusion Reactions: No Reported Reaction Past Psychological History: No Psychological Hx Reported Smoking Status: Never smoker Past Alcohol Use History: None Reported Past Drug Use History: None Reported - Past Family History Father Family Medical History: Cancer Mother Family Medical History: Cancer Medications and Allergies Home Medications Medication Instructions Recorded Confirmed Type ALPRAZolam [Xanax] 0.5 mg PO TID PRN 01/02/19 01/06/19 History Aspirin EC [Ecotrin Low Dose] 81 mg PO DAILY 01/02/19 01/06/19 History Capecitabine [Xeloda] 500 mg PO TID 01/02/19 01/06/19 History Metoclopramide HCl [Reglan] 5 mg PO BID 01/02/19 01/06/19 History Morphine Sulfate Ir [MSIR] 15 mg PO BID PRN 01/02/19 01/06/19 History Zolpidem Tartrate [Ambien Cr] 12.5 mg PO HS 01/02/19 01/06/19 History Docusate [Colace] 100 mg PO BID 01/06/19 01/06/19 History Mirabegron [Myrbetriq] 50 mg PO DAILY 01/06/19 01/06/19 History Allergies Allergy/AdvReac Type Severity Reaction Status Date / Time No Known Allergies Allergy Verified 01/06/19 17:16 Surgical - Exam Vital Signs Temp Pulse Resp BP Pulse Ox 98.0 F 82 20 100/67 100 01/06/19 16:17 01/06/19 16:17 01/06/19 16:17 01/06/19 16:17 01/06/19 16:17 Results - Labs 01/07/19 10:45 01/07/19 10:45 Abnormal Lab Results - Last 24 Hours (Table) 01/06/19 01/06/19 01/07/19 Range/Units 17:20 17:20 06:00 RBC 3.12 L (3.80-5.40) m/uL Hgb 10.5 L (11.4-16.0) gm/dL Hct 32.1 L (34.0-46.0) % MCV 102.9 H (80.0-100.0) fL RDW 26.5 H (11.5-15.5) % Macrocytosis Marked A Sodium 131 L (137-145) mmol/L Potassium (3.5-5.1) mmol/L BUN 6 L (7-17) mg/dL Creatinine 0.41 L (0.52-1.04) mg/dL Glucose (74-99) mg/dL Calcium (8.4-10.2) mg/dL Alkaline Phosphatase (38-126) U/L Creatine Kinase <20 L (30-135) U/L Total Protein 5.3 L (6.3-8.2) g/dL Albumin 2.8 L (3.5-5.0) g/dL Amylase <30 L (30-110) U/L Lipase 14 L (23-300) U/L Ur Leukocyte Esterase Moderate H (Negative) Urine WBC 8 H (0-5) /hpf Urine Mucus Rare H (None) /hpf 01/07/19 01/07/19 Range/Units 10:45 10:45 RBC 2.69 L (3.80-5.40) m/uL Hgb 9.1 L (11.4-16.0) gm/dL Hct 28.6 L (34.0-46.0) % MCV 106.2 H (80.0-100.0) fL RDW 26.1 H (11.5-15.5) % Macrocytosis Marked A Sodium 134 L (137-145) mmol/L Potassium 3.4 L (3.5-5.1) mmol/L BUN 5 L (7-17) mg/dL Creatinine 0.36 L (0.52-1.04) mg/dL Glucose 118 H (74-99) mg/dL Calcium 8.0 L (8.4-10.2) mg/dL Alkaline Phosphatase 35 L (38-126) U/L Creatine Kinase (30-135) U/L Total Protein 4.5 L (6.3-8.2) g/dL Albumin 2.3 L (3.5-5.0) g/dL Amylase (30-110) U/L Lipase (23-300) U/L Ur Leukocyte Esterase (Negative) Urine WBC (0-5) /hpf Urine Mucus (None) /hpf Diabetes panel 01/06/19 01/07/19 Range/Units 17:20 10:45 Sodium 131 L 134 L (137-145) mmol/L Potassium 3.7 3.4 L (3.5-5.1) mmol/L Chloride 98 104 (98-107) mmol/L Carbon Dioxide 28 26 (22-30) mmol/L BUN 6 L 5 L (7-17) mg/dL Creatinine 0.41 L 0.36 L (0.52-1.04) mg/dL Glucose 94 118 H (74-99) mg/dL Calcium 9.0 8.0 L (8.4-10.2) mg/dL AST 16 14 (14-36) U/L ALT 14 13 (9-52) U/L Alkaline Phosphatase 42 35 L (38-126) U/L Total Protein 5.3 L 4.5 L (6.3-8.2) g/dL Albumin 2.8 L 2.3 L (3.5-5.0) g/dL Calcium panel 01/06/19 01/07/19 Range/Units 17:20 10:45 Calcium 9.0 8.0 L (8.4-10.2) mg/dL Albumin 2.8 L 2.3 L (3.5-5.0) g/dL Pituitary panel 01/06/19 01/07/19 Range/Units 17:20 10:45 Sodium 131 L 134 L (137-145) mmol/L Potassium 3.7 3.4 L (3.5-5.1) mmol/L Chloride 98 104 (98-107) mmol/L Carbon Dioxide 28 26 (22-30) mmol/L BUN 6 L 5 L (7-17) mg/dL Creatinine 0.41 L 0.36 L (0.52-1.04) mg/dL Glucose 94 118 H (74-99) mg/dL Calcium 9.0 8.0 L (8.4-10.2) mg/dL Adrenal panel 01/06/19 01/07/19 Range/Units 17:20 10:45 Sodium 131 L 134 L (137-145) mmol/L Potassium 3.7 3.4 L (3.5-5.1) mmol/L Chloride 98 104 (98-107) mmol/L Carbon Dioxide 28 26 (22-30) mmol/L BUN 6 L 5 L (7-17) mg/dL Creatinine 0.41 L 0.36 L (0.52-1.04) mg/dL Glucose 94 118 H (74-99) mg/dL Calcium 9.0 8.0 L (8.4-10.2) mg/dL Total Bilirubin 0.5 0.2 (0.2-1.3) mg/dL AST 16 14 (14-36) U/L ALT 14 13 (9-52) U/L Alkaline Phosphatase 42 35 L (38-126) U/L Total Protein 5.3 L 4.5 L (6.3-8.2) g/dL Albumin 2.8 L 2.3 L (3.5-5.0) g/dL
[2019-01-07 12:23] LABS: Poikilocytosis (M) Present
[2019-01-07] MEDS: POTASSIUM CHLORIDE ER 20 MEQ TAB.ER PO SCH ×2 (13:38→14:32)
--- NOTE | 2019-01-07 16:01 | P.CONS ---
<Holly Kaye - Last Filed: 01/08/19 19:58> History of Present Illness - Reason for Consult Consult date: 01/07/19 Metastatic breast Cancer Requesting physician: Julio C Jeffrey - Chief Complaint Abdominal pain - History of Present Illness Darlyn is a patient with known metastatic breast cancer currently undergoing t reatment with xeloda. She is treated at outside facility Dr. Clarke, although moved up closer to to have assistance with Family. She has been in and out of hospital for SBO related to her progressive cancer. I have requested her records \. She is tolerating PO fluids and passing gas, surgery has evaluated and currently conservative management Review of Systems A 14 point review of systems was assessed and completed and are all negative except for HPI Past Medical History Past Medical History: Cancer Additional Past Medical History / Comment(s): stage 4 breast CA History of Any Multi-Drug Resistant Organisms: None Reported Past Surgical History: Appendectomy, Cholecystectomy, Hysterectomy Additional Past Surgical History / Comment(s): MAsectomy, abdominal surg Past Anesthesia/Blood Transfusion Reactions: No Reported Reaction Past Psychological History: No Psychological Hx Reported Smoking Status: Never smoker Past Alcohol Use History: None Reported Past Drug Use History: None Reported - Past Family History Father Family Medical History: Cancer Mother Family Medical History: Cancer Medications and Allergies Home Medications Medication Instructions Recorded Confirmed Type ALPRAZolam [Xanax] 0.5 mg PO TID PRN 01/02/19 01/06/19 History Aspirin EC [Ecotrin Low Dose] 81 mg PO DAILY 01/02/19 01/06/19 History Capecitabine [Xeloda] 500 mg PO TID 01/02/19 01/06/19 History Metoclopramide HCl [Reglan] 5 mg PO BID 01/02/19 01/06/19 History Morphine Sulfate Ir [MSIR] 15 mg PO BID PRN 01/02/19 01/06/19 History Zolpidem Tartrate [Ambien Cr] 12.5 mg PO HS 01/02/19 01/06/19 History Docusate [Colace] 100 mg PO BID 01/06/19 01/06/19 History Mirabegron [Myrbetriq] 50 mg PO DAILY 01/06/19 01/06/19 History Allergies Allergy/AdvReac Type Severity Reaction Status Date / Time No Known Allergies Allergy Verified 01/06/19 17:16 Physical Exam Vitals: Vital Signs Temp Pulse Pulse Resp BP BP Pulse Ox 01/07/19 14:08 97.9 F 66 16 113/72 100 01/07/19 07:40 16 01/07/19 07:15 97.5 F L 66 16 102/65 99 01/07/19 06:18 120/64 01/07/19 04:51 102/60 01/07/19 03:00 15 01/07/19 01:45 98.6 F 68 17 94/60 98 01/06/19 23:00 97.8 F 68 16 131/79 100 01/06/19 21:42 74 18 122/73 100 01/06/19 20:32 70 16 110/71 99 01/06/19 18:57 71 18 107/74 100 01/06/19 16:17 98.0 F 82 20 100/67 100 Intake and Output 01/07/19 01/07/19 01/07/19 06:59 14:59 22:59 Intake Total 900 600 Balance 900 600 Intake: Intake, IV Titration 900 Amount Sodium Chloride 0.9% 1, 900 000 ml @ 100 mls/hr IV . Q10H [facility] Rx#:[id number] Oral 600 Other: Voiding Method Bedside Commode Bedside Commode # Voids 1 Weight 43.091 kg PhysicalGeneral: Alert and Oriented x3, No Acute Distress Head: Normocytic, Atraumatic Neck: Supple Mouth: No Lesions, No Thrush Eyes: Non-sclerotic No Palpable cervical, supraclavicular, axillary adenopathy Heart: Regular Rate, Regular Rhythm Lungs: Clear to Ausculations, No Wheeze, No Rhonchi, Diminishe bilateral lower lobes, No increased respiratory effort noted Abdomen: Soft, Non-Distended, Non-Tended, BSx4 Extremities: No Edema, Equal Strength Neurological: No Focal Defects: No sensory or motor deficits noted Psych: Calm and cooperative Results CBC & Chem 7: 01/08/19 06:00 01/08/19 06:00 Labs: Abnormal Lab Results - Last 24 Hours (Table) 01/06/19 01/06/19 01/07/19 Range/Units 17:20 17:20 06:00 RBC 3.12 L (3.80-5.40) m/uL Hgb 10.5 L (11.4-16.0) gm/dL Hct 32.1 L (34.0-46.0) % MCV 102.9 H (80.0-100.0) fL RDW 26.5 H (11.5-15.5) % Macrocytosis Marked A Sodium 131 L (137-145) mmol/L Potassium (3.5-5.1) mmol/L BUN 6 L (7-17) mg/dL Creatinine 0.41 L (0.52-1.04) mg/dL Glucose (74-99) mg/dL Calcium (8.4-10.2) mg/dL Alkaline Phosphatase (38-126) U/L Creatine Kinase <20 L (30-135) U/L Total Protein 5.3 L (6.3-8.2) g/dL Albumin 2.8 L (3.5-5.0) g/dL Amylase <30 L (30-110) U/L Lipase 14 L (23-300) U/L Ur Leukocyte Esterase Moderate H (Negative) Urine WBC 8 H (0-5) /hpf Urine Mucus Rare H (None) /hpf 01/07/19 01/07/19 Range/Units 10:45 10:45 RBC 2.69 L (3.80-5.40) m/uL Hgb 9.1 L (11.4-16.0) gm/dL Hct 28.6 L (34.0-46.0) % MCV 106.2 H (80.0-100.0) fL RDW 26.1 H (11.5-15.5) % Macrocytosis Marked A Sodium 134 L (137-145) mmol/L Potassium 3.4 L (3.5-5.1) mmol/L BUN 5 L (7-17) mg/dL Creatinine 0.36 L (0.52-1.04) mg/dL Glucose 118 H (74-99) mg/dL Calcium 8.0 L (8.4-10.2) mg/dL Alkaline Phosphatase 35 L (38-126) U/L Creatine Kinase (30-135) U/L Total Protein 4.5 L (6.3-8.2) g/dL Albumin 2.3 L (3.5-5.0) g/dL Amylase (30-110) U/L Lipase (23-300) U/L Ur Leukocyte Esterase (Negative) Urine WBC (0-5) /hpf Urine Mucus (None) /hpf Abdominal x-ray: report reviewed Assessment and Plan (1) Abdominal pain Current Visit: Yes Status: Acute Code(s): R10.9 - UNSPECIFIED ABDOMINAL PAIN SNOMED Code(s): 80284238 (2) Dehydration Current Visit: Yes Status: Acute Code(s): E86.0 - DEHYDRATION SNOMED Code(s): 93089744 (3) Metastatic breast cancer Current Visit: Yes Status: Acute Code(s): C50.919 - MALIGNANT NEOPLASM OF UNSP SITE OF UNSPECIFIED FEMALE BREAST SNOMED Code(s): 148007926 (4) Small bowel obstruction Current Visit: No Status: Acute Code(s): K56.609 - UNSP INTESTNL OBST, UNSP TO PARTIAL VERSUS COMPLETE OBST SNOMED Code(s): 079342213 Plan: Assessment and Recommendations: Abdominal Pain and Obstruction: - Secondary to metastatic malignancy - Surgery Following - Currently tolerating clear liquids, paasing Flatus - Monitor per surgery Metastatic Breast Cancer: - Treated through [facility] - Please obtain all oncological records - Patient states distance is an issue with current provider <Bjorn Reeves - Last Filed: 01/09/19 22:10> Physical Exam Vitals: Vital Signs Temp Pulse Resp BP Pulse Ox 01/09/19 20:00 98.7 F 77 16 105/67 96 01/09/19 14:43 97.8 F 76 16 95/57 99 01/09/19 07:17 97.9 F 81 16 94/59 98 01/09/19 01:12 98.4 F 78 18 90/56 97 Intake and Output 01/09/19 01/09/19 01/09/19 06:59 14:59 22:59 Intake Total 1160 420 Balance 1160 420 Intake: IV 800 Sodium Chloride 0.9% 1, 800 000 ml @ 100 mls/hr IV . Q10H [facility] Rx#:[id number] Oral 360 420 Other: Voiding Method Bedside Commode Weight 43.091 kg Results CBC & Chem 7: 01/08/19 06:00 01/08/19 06:00 Labs: Microbiology - Last 24 Hours (Table) 01/06/19 17:20 Blood Culture - Preliminary Blood No Growth after 72 hours Assessment and Plan Plan: As above. Patient evaluated and examined. Clinically she appears to be progressing. Await records from Dr. Clarke to decide further management, as patient wants to transfer her care here.
[2019-01-07] MEDS: ALPRAZolam 0.5 MG TAB PO PRN (23:38)
[2019-01-07] MEDS: ZOLPIDEM 5 MG TAB PO PRN (23:38)
[2019-01-08] MEDS ORDERED: ONDANSETRON 4 MG/2 ML VIAL IVP STA (00:04)
[2019-01-08] MEDS ORDERED: Potassium Replacement Protocol 1 EACH MISC MISCELLANE PRN (00:13)
[2019-01-08] MEDS: HYDROmorphone 1 MG/ML 1 ML SYRINGE IVP PRN ×6 (00:51→19:46)
[2019-01-08] MEDS: POTASSIUM CHLORIDE 10 MEQ in WATER FOR INJECTION 1 100ML.BAG IVPB SCH ×4 (00:54→04:15)
[2019-01-08 06:27] LABS: Anisocytosis Marked; Basophils % (A) 0 %; Eosinophils # (A) 0.1 k/uL (0-0.7); Eosinophils % (A) 2 %; HCT 30.9 % (34.0-46.0); HGB 9.8 gm/dL (11.4-16.0); Lymphocytes # (A) 1.4 k/uL (1.0-4.8); Lymphocytes % (A) 21 %; MCH 33.6 pg (25.0-35.0); MCHC 31.6 g/dL (31.0-37.0); Macrocytosis Marked; Mean Platelet Volume 7.1; Monocytes # (A) 0.4 k/uL (0-1.0); Monocytes % (A) 6 %; Neutrophils # (A) 4.5 k/uL (1.3-7.7); Neutrophils % (A) 70 %; Platelet Count 252 k/uL (150-450); RBC 2.91 m/uL (3.80-5.40); WBC 6.4 k/uL (3.8-10.6)
[2019-01-08 06:30] LABS: MCV 106.3 fL (80.0-100.0)
[2019-01-08 06:36] LABS: ALT 22 U/L (9-52); AST 11 U/L (14-36); African American GFR (CKD) >90 (>60 ml/min/1.73 sqM); Albumin 2.2 g/dL (3.5-5.0); Alkaline Phosphatase 41 U/L (38-126); Anion Gap 4 mmol/L; Blood Urea Nitrogen 7 mg/dL (7-17); Calcium 7.8 mg/dL (8.4-10.2); Carbon Dioxide 27 mmol/L (22-30); Chloride 101 mmol/L (98-107); Glucose 97 mg/dL (74-99); Potassium 4.6 mmol/L (3.5-5.1); Sodium 132 mmol/L (137-145); Total Bilirubin 0.4 mg/dL (0.2-1.3); Total Protein 4.5 g/dL (6.3-8.2)
[2019-01-08] MEDS: ONDANSETRON 4 MG/2 ML VIAL IVP PRN ×2 (08:24→19:46)
[2019-01-08] MEDS: HEPARIN SODIUM,PORCINE 5,000 UNIT/ML 1 ML VIAL SQ SCH ×2 (08:25→17:35)
[2019-01-08] MEDS: METOCLOPRAMIDE 5 MG TAB PO SCH ×2 (08:25→21:47)
[2019-01-08] MEDS: CAPECITABINE PO SCH ×3 (08:25→21:47)
[2019-01-08] MEDS: DOCUSATE 100 MG CAP PO SCH ×2 (08:25→21:47)
[2019-01-08] MEDS: ASPIRIN 81 MG PO SCH (08:25)
[2019-01-08] MEDS: Mirabegron [Myrbetriq] PO SCH (08:26)
--- NOTE | 2019-01-08 09:37 | P.PN ---
Subjective Progress Note Date: 01/08/19 Principal diagnosis: SBO versus ileus Patient was seen and examined. No acute events overnight. Patient reports intense nausea, one episode of nonbilious nonbloody vomiting yesterday night and abdominal pain that was controlled with Dilaudid. Patient reports no appetite at this time. She denies any chest pain, shortness breath or palpitations. No fever or chills. No bowel movement or passing gas. Objective - Vital Signs Vital signs: Vital Signs Temp 97.7 F 01/08/19 07:00 Pulse 77 01/08/19 07:00 Resp 16 01/08/19 07:00 BP 117/78 01/08/19 07:00 Pulse Ox 97 01/08/19 07:00 Intake & Output 01/07/19 01/08/19 01/08/19 18:59 06:59 18:59 Intake Total 600 1350 Balance 600 1350 Weight 43.091 kg Intake: Intake, IV Titration 1200 Amount Sodium Chloride 0.9% 1, 1200 000 ml @ 100 mls/hr IV . Q10H COUNTS INCLUDE 234 BEDS AT THE [facility] Rx#:[id number] Oral 600 150 Other: Voiding Method Bedside Commode Bedside Commode # Voids 1 1 # Emeses 1 - Exam General: [non toxic], [no distress], [appears at stated age] Derm: [warm], [dry] Head: [atraumatic], [normocephalic], [symmetric] Eyes: [EOMI], [no lid lag], [anicteric sclera] Mouth: [no lip lesion], [mucus membranes moist] Cardiovascular: [S1S2 reg], [no murmur], [positive DP pulse bilateral], Lungs: [CTA bilateral], [no rhonchi, no rales] , [no accessory muscle use] Abdominal: [soft], [tenderness to deep palpation in the periumbilical area without rebound, normal bowel sounds], [no guarding], [no appreciable organomegaly] Ext: [no gross muscle atrophy], [no edema], [no contractures] Neuro: [no focal neuro deficits] Psych: [Alert], [oriented], [appropriate affect] - Labs CBC & Chem 7: 01/08/19 06:00 01/08/19 06:00 Labs: Abnormal Lab Results - Last 24 Hours (Table) 01/07/19 01/07/19 01/07/19 Range/Units 10:45 10:45 10:45 RBC 2.69 L (3.80-5.40) m/uL Hgb 9.1 L (11.4-16.0) gm/dL Hct 28.6 L (34.0-46.0) % MCV 106.2 H (80.0-100.0) fL RDW 26.1 H (11.5-15.5) % Macrocytosis Marked A Sodium 134 L (137-145) mmol/L Potassium 3.4 L (3.5-5.1) mmol/L BUN 5 L (7-17) mg/dL Creatinine 0.36 L (0.52-1.04) mg/dL Glucose 118 H (74-99) mg/dL Calcium 8.0 L (8.4-10.2) mg/dL Magnesium 1.3 L (1.6-2.3) mg/dL AST (14-36) U/L Alkaline Phosphatase 35 L (38-126) U/L Total Protein 4.5 L (6.3-8.2) g/dL Albumin 2.3 L (3.5-5.0) g/dL 01/08/19 01/08/19 Range/Units 06:00 06:00 RBC 2.91 L (3.80-5.40) m/uL Hgb 9.8 L (11.4-16.0) gm/dL Hct 30.9 L (34.0-46.0) % MCV 106.3 H (80.0-100.0) fL RDW 26.0 H (11.5-15.5) % Macrocytosis Marked A Sodium 132 L (137-145) mmol/L Potassium (3.5-5.1) mmol/L BUN (7-17) mg/dL Creatinine 0.45 L (0.52-1.04) mg/dL Glucose (74-99) mg/dL Calcium 7.8 L (8.4-10.2) mg/dL Magnesium (1.6-2.3) mg/dL AST 11 L (14-36) U/L Alkaline Phosphatase (38-126) U/L Total Protein 4.5 L (6.3-8.2) g/dL Albumin 2.2 L (3.5-5.0) g/dL Microbiology - Last 24 Hours (Table) 01/06/19 17:20 Blood Culture - Preliminary Blood No Growth after 24 hours Assessment and Plan Assessment: Small bowel obstruction versus ileus in the setting of stage IV metastatic breast cancer multiple abdominal surgeries with adhesions Stage IV metastatic breast cancer Hyponatremia Anemia Protein calorie malnutrition Plans: Clear liquid diet and advance. Zofran as needed for nausea and vomiting. Morphine, Dilaudid as needed for pain management. Follow surgery recommendations. Follows Dr. Clarke at [facility]. Would like to follow-up Pito. Plans: Obta in records from [facility]. Follow oncology recommendations. Follow CA 27-29, CA 153. Related to dehydration. Given IVF. Plans: BMP tomorrow morning. Continue normal saline. Hemoglobin 9.8. Stable. Macrocytic. Plans: CBC tomorrow morning. Follow iron studies, B12 and folic acid. BMI 15.8. Plans: Dietitian consult. Plans to observe overnight. Clear liquid diet and advance as tolerated, surgery following. Will obtain records as per Oncology.
[2019-01-08] MEDS ORDERED: PETROLATUM, WHITE OINT 50 GM TUBE TOPICAL PRN (12:02)
--- NOTE | 2019-01-08 15:29 | P.PN ---
Subjective Progress Note Date: 01/08/19 CHIEF COMPLAINT: Small bowel obstruction HISTORY OF PRESENT ILLNESS: The patient is a 68-year-old female with history of small bowel obstruction and stage IV breast cancer. She reports having abdominal cramps yesterday but improved. She is tolerating liquids. Family at bedside. ROS: Recent reports of nausea and vomiting. No bowel movements. No fevers or chills. No new chest pain. No productive sputum PHYSICAL EXAM: VITAL SIGNS: Reviewed CONSTITUTIONAL: Well developed and in no acute distress. EYES: Conjuctivae without sclera icterus. Extraocular movements grossly intact. HEAD, EARS, NOSE, THROAT: Moist buccal mucosa. Head is atraumatic, normocephalic. Hears conversational speech. No nasal drainage. NECK: Supple. No thyroidomegaly. RESPIRATORY: Non-labored respirations and equal bilateral excursions. CARDIOVASCULAR: Palpable 2+ radial pulses. Regular rate. Regular rhythm. ABDOMEN: Mild distention. No peritonitis. MUSCULOSKELETAL: No gross deformity of the lower extremities noted. No clubbing. No cyanosis. SKIN: Good skin turgor. Well perfused. NEUROLOGIC: Cranial nerves I through XII grossly intact. No focal or lateralizing signs. PSYCH: Appropriate affect. Alert and oriented to person, place and time. CLINCAL LABS: White blood cell count normal ASSESSMENT: 1. Small bowel obstruction 2. Metastatic breast cancer. PLAN: 1. Overall, conservative management with stage IV cancer. 2. No surgical intervention. 3. Will sign off. Objective - Vital Signs Vital signs: Vital Signs Temp 97.7 F 01/08/19 07:00 Pulse 77 01/08/19 08:05 Resp 16 01/08/19 08:05 BP 117/78 01/08/19 07:00 Pulse Ox 97 01/08/19 07:00 Intake & Output 01/07/19 01/08/19 01/08/19 18:59 06:59 18:59 Intake Total 600 1350 1250 Balance 600 1350 1250 Weight 43.091 kg Intake: Intake, IV Titration 1200 900 Amount Sodium Chloride 0.9% 1, 1200 900 000 ml @ 100 mls/hr IV . Q10H [facility] Rx#:[id number] Oral 600 150 350 Other: Voiding Method Bedside Commode Bedside Commode Bedside Commode # Voids 1 1 1 # Emeses 1 1 - Labs CBC & Chem 7: 01/08/19 06:00 01/08/19 06:00 Labs: Abnormal Lab Results - Last 24 Hours (Table) 01/07/19 01/08/19 01/08/19 Range/Units 10:45 06:00 06:00 RBC 2.91 L (3.80-5.40) m/uL Hgb 9.8 L (11.4-16.0) gm/dL Hct 30.9 L (34.0-46.0) % MCV 106.3 H (80.0-100.0) fL RDW 26.0 H (11.5-15.5) % Macrocytosis Marked A Sodium 132 L (137-145) mmol/L Creatinine 0.45 L (0.52-1.04) mg/dL Calcium 7.8 L (8.4-10.2) mg/dL Magnesium 1.3 L (1.6-2.3) mg/dL AST 11 L (14-36) U/L Total Protein 4.5 L (6.3-8.2) g/dL Albumin 2.2 L (3.5-5.0) g/dL Microbiology - Last 24 Hours (Table) 01/06/19 17:20 Blood Culture - Preliminary Blood No Growth after 24 hours Assessment and Plan (1) Abdominal pain Current Visit: Yes Status: Acute Code(s): R10.9 - UNSPECIFIED ABDOMINAL PAIN SNOMED Code(s): 11367950 (2) Dehydration Current Visit: Yes Status: Acute Code(s): E86.0 - DEHYDRATION SNOMED Code(s): 53081436 (3) Intractable vomiting Current Visit: Yes Status: Acute Code(s): R11.10 - VOMITING, UNSPECIFIED SNOMED Code(s): 915286718 (4) Metastatic breast cancer Current Visit: Yes Status: Acute Code(s): C50.919 - MALIGNANT NEOPLASM OF UNSP SITE OF UNSPECIFIED FEMALE BREAST SNOMED Code(s): 254447253 (5) Small bowel obstruction Current Visit: No Status: Acute Code(s): K56.609 - UNSP INTESTNL OBST, UNSP TO PARTIAL VERSUS COMPLETE OBST SNOMED Code(s): 878011715
[2019-01-08 16:49] LABS: CA27.29 Breast Ca Marker 71.7 U/mL (0.0-38.5)
[2019-01-08 17:27] LABS: Cancer Antigen 153 29.1 U/mL (0.0-32.3)
[2019-01-08] MEDS: TRIAMCINOLONE ACET 0.1% OINTMENT 15 GM TUBE TOPICAL SCH ×2 (17:35→21:48)
[2019-01-08] MEDS: SODIUM CHLORIDE 0.9% 1,000 ML IV SCH ×2 (17:36→21:50)
[2019-01-08 17:47] LABS: Iron Saturation 13.94 (12.00-45.00)
[2019-01-08] MEDS: ALPRAZolam 0.5 MG TAB PO PRN (21:47)
[2019-01-08] MEDS: ZOLPIDEM 5 MG TAB PO PRN (21:47)
[2019-01-09] MEDS: HEPARIN SODIUM,PORCINE 5,000 UNIT/ML 1 ML VIAL SQ SCH ×4 (00:59→22:58)
[2019-01-09] MEDS: HYDROmorphone 1 MG/ML 1 ML SYRINGE IVP PRN ×6 (01:02→21:54)
[2019-01-09] MEDS: ONDANSETRON 4 MG/2 ML VIAL IVP PRN ×3 (08:34→22:58)
[2019-01-09] MEDS: SODIUM CHLORIDE 0.9% 1,000 ML IV SCH ×2 (08:37→18:57)
[2019-01-09] MEDS: METOCLOPRAMIDE 5 MG TAB PO SCH ×2 (09:35→21:56)
[2019-01-09] MEDS: ASPIRIN 81 MG PO SCH (09:35)
[2019-01-09] MEDS: DOCUSATE 100 MG CAP PO SCH ×2 (09:35→21:56)
[2019-01-09] MEDS: CAPECITABINE PO SCH ×3 (09:36→21:56)
[2019-01-09] MEDS: Mirabegron [Myrbetriq] PO SCH (09:39)
[2019-01-09] MEDS: TRIAMCINOLONE ACET 0.1% OINTMENT 15 GM TUBE TOPICAL SCH ×2 (09:40→21:57)
--- NOTE | 2019-01-09 13:06 | P.PN ---
Subjective Progress Note Date: 01/09/19 Principal diagnosis: SBO Patient reports intense nausea last night with some bites of lemon ice and half a cup of broth. She also complains of abdominal pain is epigastric and pe riumbilical that gets worse after a meal. States that the pain can be 8-9 out of 10 in severity. She denies any vomiting. No fever or chills. No bowel movement since Thursday. Passing gas. Family is at bedside. Objective - Vital Signs Vital signs: Vital Signs Temp 97.9 F 01/09/19 07:17 Pulse 81 01/09/19 07:17 Resp 16 01/09/19 07:17 BP 94/59 01/09/19 07:17 Pulse Ox 98 01/09/19 07:17 Intake & Output 01/08/19 01/09/19 01/09/19 18:59 06:59 18:59 Intake Total 1250 180 Balance 1250 180 Intake: Intake, IV Titration 900 Amount Sodium Chloride 0.9% 1, 900 000 ml @ 100 mls/hr IV . Q10H [facility] Rx#:[id number] Oral 350 180 Other: Voiding Method Bedside Commode Bedside Commode # Voids 1 # Emeses 1 - Exam General: [non toxic], [no distress], [appears at stated age] Derm: [warm], [dry] Head: [atraumatic], [normocephalic], [symmetric] Eyes: [EOMI], [no lid lag], [anicteric sclera] Mouth: [no lip lesion], [mucus membranes moist] Cardiovascular: [S1S2 reg], [no murmur], [positive DP pulse bilateral], Lungs: [CTA bilateral], [no rhonchi, no rales] , [no accessory muscle use] Abdominal: [soft], [tenderness to deep palpation in the periumbilical area without rebound, normal bowel sounds], [no guarding], [no appreciable organomegaly] Ext: [no gross muscle atrophy], [no edema], [no contractures] Neuro: [no focal neuro deficits] Psych: [Alert], [oriented], [appropriate affect] - Labs CBC & Chem 7: 01/08/19 06:00 01/08/19 06:00 Labs: Abnormal Lab Results - Last 24 Hours (Table) 01/08/19 Range/Units 06:00 Iron 23 L (50-170) ug/dL TIBC 165 L (228-460) ug/dL Ferritin 390.4 H (10.0-291.0) ng/mL CA 27-29 71.7 H (0.0-38.5) U/mL Microbiology - Last 24 Hours (Table) 01/06/19 17:20 Blood Culture - Preliminary Blood No Growth after 48 hours Assessment and Plan Assessment: Small bowel obstruction versus ileus in the setting of stage IV metastatic breast cancer multiple abdominal surgeries with adhesions Stage IV metastatic breast cancer Hyponatremia Anemia Protein calorie malnutrition Amylase and lipase within normal limits. Plans: Clear liquid diet and advance to full liquid diet this evening. Zofran or Reglan as needed for nausea and vomiting. Morphine, Dilaudid as needed for pain management. Follow surgery recommendations. Follows Dr. Clarke at [facility]. Would like to follow-up Pito. CA 27-29 elevated. CA 15-3 within normal limits. Plans: Obtain records from [facility]. Follow oncology recommendations. Related to dehydration. Given IVF. Plans: BMP tomorrow morning. Continue normal saline. Hemoglobin 9.8. Stable. Macrocytic. Iron studies show anemia chronic disease. B12 within normal limits. Plans: CBC tomorrow morning. Transfuse if hemoglobin less than 7. BMI 15.8. Plans: Dietitian consult. Add ensure. Plans to observe today. Advance diet as tolerated. Will obtain records as per Oncology. Likely DC in 1-2 days.
[2019-01-09] MEDS: ZOLPIDEM 5 MG TAB PO PRN (22:05)
[2019-01-09] MEDS: ALPRAZolam 0.5 MG TAB PO PRN (22:05)
[2019-01-10] MEDS: HYDROmorphone 1 MG/ML 1 ML SYRINGE IVP PRN ×2 (01:43→05:40)
[2019-01-10] MEDS: SODIUM CHLORIDE 0.9% 1,000 ML IV SCH ×2 (04:58→15:29)
[2019-01-10] MEDS: ONDANSETRON 4 MG/2 ML VIAL IVP PRN ×2 (06:02→17:12)
[2019-01-10] MEDS: ASPIRIN 81 MG PO SCH (08:59)
[2019-01-10] MEDS: DOCUSATE 100 MG CAP PO SCH ×2 (08:59→20:45)
[2019-01-10] MEDS: Mirabegron [Myrbetriq] PO SCH (08:59)
[2019-01-10] MEDS: HEPARIN SODIUM,PORCINE 5,000 UNIT/ML 1 ML VIAL SQ SCH ×3 (09:00→22:40)
[2019-01-10] MEDS: HYDROmorphone 2 MG/ML 1 ML SYRINGE IVP PRN ×5 (09:00→22:40)
[2019-01-10] MEDS: CAPECITABINE PO SCH ×3 (09:00→20:45)
[2019-01-10] MEDS: METOCLOPRAMIDE 5 MG/ML 2 ML VIAL IVP SCH ×2 (09:00→20:45)
[2019-01-10] MEDS: TRIAMCINOLONE ACET 0.1% OINTMENT 15 GM TUBE TOPICAL SCH ×2 (09:00→20:47)
[2019-01-10 09:30] LABS: Anisocytosis Marked; Basophils % (A) 0 %; Eosinophils # (A) 0.1 k/uL (0-0.7); Eosinophils % (A) 3 %; HCT 29.5 % (34.0-46.0); HGB 9.3 gm/dL (11.4-16.0); Lymphocytes % (A) 21 %; MCH 32.9 pg (25.0-35.0); MCHC 31.5 g/dL (31.0-37.0); MCV 104.5 fL (80.0-100.0); Macrocytosis Marked; Mean Platelet Volume 6.6; Monocytes # (A) 0.3 k/uL (0-1.0); Monocytes % (A) 7 %; Neutrophils % (A) 67 %; Platelet Count 250 k/uL (150-450); RBC 2.83 m/uL (3.80-5.40); RDW 24.7 % (11.5-15.5); WBC 4.5 k/uL (3.8-10.6)
[2019-01-10 09:35] LABS: ALT 16 U/L (9-52); AST 11 U/L (14-36); African American GFR (CKD) >90 (>60 ml/min/1.73 sqM); Alkaline Phosphatase 39 U/L (38-126); Anion Gap 6 mmol/L; Blood Urea Nitrogen 7 mg/dL (7-17); Calcium 7.4 mg/dL (8.4-10.2); Carbon Dioxide 25 mmol/L (22-30); Chloride 102 mmol/L (98-107); Glucose 98 mg/dL (74-99); Sodium 133 mmol/L (137-145); Total Bilirubin 0.4 mg/dL (0.2-1.3); Total Protein 4.1 g/dL (6.3-8.2)
[2019-01-10 09:38] LABS: Potassium 2.4 mmol/L (3.5-5.1)
[2019-01-10] MEDS ORDERED: Potassium Replacement Protocol 1 EACH MISC MISCELLANE PRN (09:44)
[2019-01-10 10:27] LABS: Target Cells Present
[2019-01-10 10:28] LABS: Poikilocytosis (M) Present
[2019-01-10] MEDS: POTASSIUM CHLORIDE 20 MEQ in WATER FOR INJECTION 1 100ML.BAG IVPB SCH ×4 (10:29→17:00)
[2019-01-10] MEDS ORDERED: POTASSIUM CHLORIDE ER 20 MEQ TAB.ER PO STA (11:08)
--- NOTE | 2019-01-10 11:20 | P.DS ---
Providers Date of admission: 01/07/19 13:38 Expected date of discharge: 01/10/19 Attending physician: Dennys Brito MD Consults: 01/06/19 20:43 Consult Physician Routine Consulting Provider: Bjorn Reeves Consult Reason/Comments: Metastatic breast cancer Do you want consulting provider notified?: Yes 01/07/19 01:00 Consult Physician Routine Consulting Provider: Sunny Nunez Consult Reason/Comments: abd pain , history of SBO, Do you want consulting provider notified?: Yes, Notify in am Primary care physician: Physician Nonstaff Hospital Course: The patient is a 68-year-old female with a PMH of multiple abdominal procedures (cholecystectomy, appendectomy, hysterectomy), multiple small bowel obstructions, stage IV metastatic breast cancer (follows at [facility], w/ mets in large bowel) currently on Xeloda oral chemotherapy oral chemotherapy, presented to the ED with complaints of abdominal pain, nausea, and diarrhea. She had recently been discharged on 01/05/2019 for the same problem. She notes that her symptoms are similar to her previous episodes of SBOs. Patient had undergone extensive evaluation at [facility] during her previous a dmission and CT abdomen had showed multiple masses in large bowel. The patient was subsequently admitted to our service for evaluation by surgery and symptomatic management. Patient was admitted for ileus as seen on KUB in the setting of stage IV metastatic breast cancer with multiple abdominal surgeries and adhesions. Gen. surgery was consulted and recommended conservative management. Oncology was consulted and recommended obtaining records from Dr. Clarke at [facility]. Patient was initially nothing by mouth, transitioned to clear liquid diet and advanced. She was given Zofran as needed for nausea or vomiting. Patient was seen and examined this morning. No acute events overnight. Patient reports no improvement in her symptoms over the last couple of days. She was able to have a small bowel movement which she describes as diarrhea. Able to drink a little bit of ensure for dinner, felt intense nausea and abdominal cramping. This morning, surgical team increased Dilaudid from 1 mg to 2 mg IV every 3 hours and added IV Reglan. General: [Appears ill], [no distress], [appears at stated age] Derm: [warm], [dry] Head: [atraumatic], [normocephalic], [symmetric] Eyes: [EOMI], [no lid lag], [anicteric sclera] Cardiovascular: [S1S2 reg], [no murmur], [positive DP pulse bilateral] Lungs: [CTA bilateral], [no rhonchi, no rales] , [no accessory muscle use] Abdominal: [soft], [tenderness to deep palpation in the periumbilical area without rebound, normal bowel sounds], [no guarding], [no appreciable organomegaly] Ext: [no gross muscle atrophy], [no edema], [no contractures] Neuro: [no focal neuro deficits] Psych: [Alert], [oriented], [appropriate affect] Ileus in the setting of stage IV metastatic breast cancer multiple abdominal surgeries with adhesions Hypokalemia Stage IV metastatic breast cancer Hyponatremia Anemia Protein calorie malnutrition Amylase and lipase within normal limits. Plans: Full liquid diet and advance as tolerated. Zofran or Reglan (changed to IV) as needed for nausea and vomiting. Morphine, Dilaudid (increased by surgery team) as needed for pain management. Add protonix IV. Follow surgery recommendations. Potassium 2.4. Likely secondary to poor appetite. Plans: Replace 80 mEq IV today. Also 40 mEq by mouth. Telemetry monitoring. Check potassium at [address] Clarke at [facility]. Would like to follow-up Pito. CA 27-29 elevated. CA 15-3 within normal limits. Plans: Discussed with RN, will obtain records from [facility]. Follow oncology recommendations. Related to dehydration. Given IVF. Plans: BMP tomorrow morning. Continue normal saline. Hemoglobin 9.3. Stable. Macrocytic. Iron studies showed anemia chronic disease. B12 within normal limits. Plans: CBC tomorrow morning. Transfuse if hemoglobin less than 7. BMI 15.8. Plans: Dietitian consult. Add ensure. [Patient still unable to tolerate adequate nutrition. Low potassium today, will replace via IV and by mouth. Continue symptomatic treatment for ileus, possible SBO. DC in 1-2 days.] Pertinent Studies: KUB Patient Condition at Discharge: Fair Plan - Discharge Summary Discharge Rx Participant: No New Discharge Prescriptions: No Action Morphine Sulfate Ir [MSIR] 15 mg PO BID PRN PRN Reason: Pain ALPRAZolam [Xanax] 0.5 mg PO TID PRN PRN Reason: Anxiety Capecitabine [Xeloda] 500 mg PO TID Aspirin EC [Ecotrin Low Dose] 81 mg PO DAILY Zolpidem Tartrate [Ambien Cr] 12.5 mg PO HS Metoclopramide HCl [Reglan] 5 mg PO BID Mirabegron [Myrbetriq] 50 mg PO DAILY Docusate [Colace] 100 mg PO BID Discharge Medication List ALPRAZolam [Xanax] 0.5 mg PO TID PRN 01/02/19 [History] Aspirin EC [Ecotrin Low Dose] 81 mg PO DAILY 01/02/19 [History] Capecitabine [Xeloda] 500 mg PO TID 01/02/19 [History] Metoclopramide HCl [Reglan] 5 mg PO BID 01/02/19 [History] Morphine Sulfate Ir [MSIR] 15 mg PO BID PRN 01/02/19 [History] Zolpidem Tartrate [Ambien Cr] 12.5 mg PO HS 01/02/19 [History] Docusate [Colace] 100 mg PO BID 01/06/19 [History] Mirabegron [Myrbetriq] 50 mg PO DAILY 01/06/19 [History] Follow up Appointment(s)/Referral(s): Selin Grewal NPC [REFERRING] - 1-2 Days [facility], [NON-STAFF] - Sunny Nunez MD [STAFF PHYSICIAN] - 1 Week
--- NOTE | 2019-01-10 11:28 | P.PN ---
Progress Note - Text Progress Note Date: 01/10/19 ACP coding Discussed with patient the nature of her disease. Patient was diagnosed with stage II breast cancer in 2005, underwent lumpectomy with chemo and radiation at that time. She had been following her oncologist every 6 months since then. Patient states that she had a mammogram in April 2016 which was normal according to her. Patient states that she is some Tums in July 2016 on her breast exam for which she followed up with her oncologist. Patient was diagnosed with stage IV breast cancer at that time and started on Xeloda. Patient reiterates DNR/DNI. Patient states that she is also open palliative care and hospice if need be. We don't have records this time to confirm her diagnosis (discussed with RN, will obtain from Dr. Clarke at [facility]). Discuss with social media intern Keiry, patient is already set up for home health, we will add palliative care for symptom management on discharge.
[2019-01-10] MEDS: PANTOPRAZOLE 40 MG/10 ML VIAL IVP SCH (12:12)
[2019-01-10] MEDS ORDERED: MORPHINE SULFATE IR 15 MG TABLET PO PRN (16:53)
[2019-01-10] MEDS ORDERED: MAGNESIUM HYDROXIDE 2,400 MG/10 ML CUP PO PRN (16:54)
--- NOTE | 2019-01-10 17:00 | P.PN ---
Subjective Progress Note Date: 01/10/19 Principal diagnosis: Pain related to malignancy. Metastatic breast cancer In follow-up today patient had complaints of intractable abdominal pain accompanied by nausea, she did receive an additional dose of pain medications and the nausea resolved. She states brown watery stool, no abdominal bloating or cramping at this time, bleeding or other pain to report. Objective - Vital Signs Vital signs: Vital Signs Temp 98.8 F 01/10/19 15:00 Pulse 74 01/10/19 15:00 Resp 16 01/10/19 15:00 BP 101/58 01/10/19 15:00 Pulse Ox 90 L 01/10/19 15:00 Intake & Output 01/09/19 01/10/19 01/10/19 18:59 06:59 18:59 Intake Total 1160 420 420 Balance 1160 420 420 Weight 43.091 kg Intake: IV 800 Sodium Chloride 0.9% 1, 800 000 ml @ 100 mls/hr IV . Q10H [facility] Rx#:[id number] Oral 360 420 420 Other: Voiding Method Bedside Commode # Voids 3 - Constitutional General appearance: Present: cooperative, no acute distress, thin - EENT Eyes: Present: anicteric sclerae, EOMI ENT: Present: hearing grossly normal, normal oropharynx - Respiratory Respiratory: bilateral: CTA - Cardiovascular Rhythm: regular Heart sounds: normal: S1, S2 Abnormal Heart Sounds: Absent: systolic murmur, diastolic murmur, rub, S3 Gallop, S4 Gallop, click, other - Peripheral edema leg Peripheral Edema: bilateral: None - Gastrointestinal General gastrointestinal: Present: decreased bowel sounds Localized gastrointestinal: tender: diffuse (Mild) - Neurologic Neurologic: Present: CNII-XII intact - Musculoskeletal Musculoskeletal: Present: strength equal bilaterally - Psychiatric Psychiatric: Present: A&O x's 3, appropriate affect, intact judgment & insight - Labs CBC & Chem 7: 01/10/19 09:14 01/10/19 09:14 Labs: Abnormal Lab Results - Last 24 Hours (Table) 01/10/19 01/10/19 Range/Units 09:14 09:14 RBC 2.83 L (3.80-5.40) m/uL Hgb 9.3 L (11.4-16.0) gm/dL Hct 29.5 L (34.0-46.0) % MCV 104.5 H (80.0-100.0) fL RDW 24.7 H (11.5-15.5) % Macrocytosis Marked A Sodium 133 L (137-145) mmol/L Potassium 2.4 L* (3.5-5.1) mmol/L Creatinine 0.41 L (0.52-1.04) mg/dL Calcium 7.4 L (8.4-10.2) mg/dL AST 11 L (14-36) U/L Total Protein 4.1 L (6.3-8.2) g/dL Albumin 2.0 L (3.5-5.0) g/dL Microbiology - Last 24 Hours (Table) 01/06/19 17:20 Blood Culture - Preliminary Blood No Growth after 72 hours Assessment and Plan (1) Cancer related pain Narrative/Plan: Patient stated improvement in her pain after several doses of IV Dilaudid. Patient's morphine that she was being prescribed at home, frequency was adjusted, would prefer that the oral be utilized to ensure adequate pain control when discharged. Multiple medications have been ordered for constipation as patient stated brown water. Patient is not experiencing any unusual pain in the abdomen but an abdominal flat plate may be reasonable to rule out fecal stasis. Current Visit: Yes Status: Acute Priority: High Code(s): G89.3 - NEOPLASM RELATED PAIN (ACUTE) (CHRONIC) SNOMED Code(s): 14709265125134 (2) Ileus Narrative/Plan: Patient states several ileus instances due to disease with in the abdomen. Recommended to patient to keep stool as discussed possible and closely monitor bowel movements. Current Visit: Yes Status: Chronic Priority: High Code(s): K56.7 - ILEUS, UNSPECIFIED SNOMED Code(s): 228103803 (3) Abdominal pain Narrative/Plan: Secondary to ileus and malignancy within the abdomen. Pain medications are being adjusted. Current Visit: Yes Status: Chronic Priority: High Code(s): R10.9 - UNSPECIFIED ABDOMINAL PAIN SNOMED Code(s): 72060099 (4) Metastatic breast cancer Narrative/Plan: Pending transfer of care from Dr. Clarke at [facility] Patient will continue with her current prescription of Xeloda 500 mg 3 times a day. Current Visit: Yes Status: Chronic Priority: High Code(s): C50.919 - MALIGNANT NEOPLASM OF UNSP SITE OF UNSPECIFIED FEMALE BREAST SNOMED Code(s): 688666498
[2019-01-10] MEDS: ALPRAZolam 0.5 MG TAB PO PRN (22:41)
[2019-01-10] MEDS: ZOLPIDEM 5 MG TAB PO PRN (22:41)
[2019-01-11] MEDS: ONDANSETRON 4 MG/2 ML VIAL IVP PRN ×2 (01:12→11:21)
[2019-01-11] MEDS: SODIUM CHLORIDE 0.9% 1,000 ML IV SCH ×3 (01:12→20:22)
[2019-01-11] MEDS: HYDROmorphone 2 MG/ML 1 ML SYRINGE IVP PRN ×6 (01:41→23:48)
[2019-01-11] MEDS: METOCLOPRAMIDE 5 MG/ML 2 ML VIAL IVP SCH ×2 (07:49→20:21)
[2019-01-11] MEDS: PANTOPRAZOLE 40 MG/10 ML VIAL IVP SCH (07:49)
[2019-01-11] MEDS: ASPIRIN 81 MG PO SCH (07:50)
[2019-01-11] MEDS: DOCUSATE 100 MG CAP PO SCH ×2 (07:50→20:22)
[2019-01-11] MEDS: HEPARIN SODIUM,PORCINE 5,000 UNIT/ML 1 ML VIAL SQ SCH ×3 (07:50→23:53)
[2019-01-11] MEDS: CAPECITABINE PO SCH ×3 (07:50→20:22)
[2019-01-11] MEDS: Mirabegron [Myrbetriq] PO SCH (07:51)
[2019-01-11] MEDS: POLYETHYLENE GLYCOL 3350 17 GM POWD.PACK PO SCH (07:51)
[2019-01-11] MEDS: TRIAMCINOLONE ACET 0.1% OINTMENT 15 GM TUBE TOPICAL SCH ×2 (07:51→20:21)
[2019-01-11] MEDS ORDERED: ONDANSETRON 4 MG/2 ML VIAL IVP PRN (12:34)
[2019-01-11 13:05] LABS: African American GFR (CKD) >90 (>60 ml/min/1.73 sqM); Anion Gap 6 mmol/L; Blood Urea Nitrogen 7 mg/dL (7-17); Calcium 7.7 mg/dL (8.4-10.2); Carbon Dioxide 21 mmol/L (22-30); Chloride 104 mmol/L (98-107); Glucose 92 mg/dL (74-99); Potassium 3.8 mmol/L (3.5-5.1); Sodium 131 mmol/L (137-145)
[2019-01-11] MEDS: IOPAMIDOL-300 CONTRAST 30 ML VIAL (ORAL USE) PO PRN ×2 (14:58→16:20)
[2019-01-11] MEDS: DRONABINOL 2.5 MG CAP PO SCH (17:14)
--- NOTE | 2019-01-11 18:21 | P.PN ---
Subjective Progress Note Date: 01/11/19 Principal diagnosis: abdominal pain Patient is a 68-year-old female with a past medical history of stage IV breast cancer with metastases to the abdomen and liver, insomnia, and weight loss. She was recently hospitalized here from a high of 01/05 secondary to small bowel obstruction which was conservatively managed. On presentation to the ER here her vital signs were within normal limits. Laboratory analysis showed a low sodium at 131, and hemoglobin of 10.5 which is chronic for her. She underwent a KUB which showed mild intestinal ileus. She was admitted for f urther management. She was made nothing by mouth and started on pain medications. Surgery was consulted who recommended conservative management with a clear liquid diet and IV fluids. Oncology was consulted who felt that her pain medicines should be optimized and requested records from her primary oncologist Dr. Clarke out of [facility]. She continued to experience significant abdominal pain, she did not have any bowel movement since admission, and she was unable to tolerate oral intake. Patient seen and examined at bedside. She continues to have abdominal pain requiring IV Dilaudid. She is amenable to trying a fentanyl patch. She is concerned that her cancer is progressing and states that some of her medications were stopped when she was recently at rehab. She believes she was given her Xeloda at that time. She reports that she had an acute worsening of her pain prior to her hospital admission on 01/03. Up to that point she been tolerating soft foods and was having normal bowel movements. She denies any chest pain or shortness of breath. She states she was taking Marinol prior to admission and her appetite had been better. She also reports significant nausea but this may be secondary to pain. Objective - Vital Signs Vital signs: Vital Signs Temp 97.9 F 01/11/19 07:00 Pulse 87 01/11/19 07:00 Resp 16 01/11/19 07:00 BP 131/82 01/11/19 07:00 Pulse Ox 96 01/11/19 07:00 Intake & Output 01/10/19 01/11/19 01/11/19 18:59 06:59 18:59 Intake Total 840 Balance 840 Weight 48.081 kg Intake: Oral 840 Other: Voiding Method Bedside Commode # Voids 3 - Exam General: non toxic, no distress, appears older than stated age, cachectic, temporal wasting Derm: Erythema of the distal tips of digits of bilateral hands with desquamation of skin consistent with hand and foot syndrome secondary to Xeloda warm, dry Head: atraumatic, normocephalic, symmetric Eyes: EOMI, no lid lag, anicteric sclera Mouth: no lip lesion, mucus membranes dry Cardiovascular: S1S2 reg, no murmur, positive posterior tibial pulse bilateral, Lungs: CTA bilateral, no rhonchi, no rales , no accessory muscle use Abdominal: soft, tender to palpation diffusely, no guarding, no appreciable organomegaly Ext: no gross muscle atrophy, no edema, no contractures Neuro: CN II-XI grossly intact, no focal neuro deficits Psych: Alert, oriented, appropriate affect - Labs CBC & Chem 7: 01/10/19 09:14 01/11/19 11:49 Labs: Abnormal Lab Results - Last 24 Hours (Table) 01/08/19 Range/Units 06:00 RBC Folate 920 H (280 - 791) ng/mL Microbiology - Last 24 Hours (Table) 01/06/19 17:20 Blood Culture - Preliminary Blood No Growth after 96 hours Assessment and Plan Assessment: Ileus likely secondary to known metastatic disease in combination with opiate pain medications -Check CT abdomen and pelvis to rule out obstruction due to worsening of metastatic disease -IV fluids -Continue clear liquid diet Intractable abdominal pain with intractable nausea secondary to metastatic disease -Start fentanyl patch -Continue to use Dilaudid for breakthrough pain -Encourage oral morphine use -Zofran prior to all meals Severe protein calorie malnutrition with cachexia and BMI of 17.6 -Continue clear ensure -Dietitian recommendations -Marinol restarted Hyponatremia, suspect secondary to low solute intake -Continue with IV fluids -Repeat basic metabolic profile in a.m. Macrocytic anemia -RBC folate and B12 within normal limits, iron studies within normal limits -Follow CBC Metastatic breast cancer with metastases to the abdomen -Await records and Dr. Clarke's office -Oncology recommendations DVT prophylaxis: Heparin Discussed with: Patient, nursing Anticipated discharge: 1-2 days of tolerating diet Anticipated discharge place: Home with home health A total of 35 minutes was spent on the care of this complex patient more than 50% of the time was spent in counseling and care coordination.
[2019-01-11] MEDS ORDERED: POTASSIUM CHLORIDE ER 20 MEQ TAB.ER PO SCH (20:00)
[2019-01-11] MEDS ORDERED: metroNIDAZOLE-NS PMX 500 MG in SALINE 1 100ML.BAG IVPB STA (22:44)
--- NOTE | 2019-01-11 22:46 | CT ---
EXAMINATION TYPE: CT abdomen pelvis w con DATE OF EXAM: 01/11/2019 COMPARISON: [facility] CT 01/02/2019 HISTORY: Generalized pain with vomiting. Pain, history of metastatic disease to the large bowel with obstruction. CT DLP: 646.9 mGycm Automated exposure control for dose reduction was used. TECHNIQUE: Helical acquisition of images was performed from the lung bases through the pelvis. CONTRAST: Performed with Oral Contrast and with IV Contrast, patient injected with 100 mL of Isovue 3 00. FINDINGS: BOWEL, PERITONEAL CAVITY, AND EXTRAPERITONEAL SPACES: New since the prior CT of 01/02/2019 is prominen t dilation of the entire jejunum and the proximal ileum, with these bowel loops reaching 4.5 cm calib er throughout the left upper quadrant, midabdomen-pelvis, and left lower quadrant. There is a strikin g pattern of new, circumferential pneumatosis throughout these small bowel loops. There is no gas wit hin the mesenteric or portal venous anatomy at this time. There are heterogeneous infiltrating extraperitoneal soft tissue masses seen within the anterior para renal space, the subperitoneal space of the mesentery, and the mesocolon. These are consistent with m etastatic neoplasm. There is no pneumoperitoneum; scant volume of dependent simple-appearing peritoneal fluid is seen in the pelvis. The origin of the celiac axis and SMA demonstrates short segment flow-limiting stenoses with poststen otic dilatation. MECCA is patent. LUNG BASES: Mild-moderate right pleural effusion, with associated passive atelectasis. LIVER/GB: No significant abnormality is appreciated. PANCREAS: No significant abnormality is seen. SPLEEN: No significant abnormality is seen. ADRENALS: No significant abnormality is seen. KIDNEYS: No significant abnormality is seen. RETROPERITONEAL ADENOPATHY: None visualized REPRODUCTIVE ORGANS: No significant abnormality is seen URINARY BLADDER: No significant abnormality is seen. PELVIC ADENOPATHY: None visualized. OSSEOUS STRUCTURES: No significant abnormality is seen. Results called to the patient's nurse Minna at 10:20 and results discussed with covering physician Dr. Briot at 10:30. IMPRESSION: 1) NEW PNEUMATOSIS AND SMALL BOWEL OBSTRUCTION, LIKELY DUE TO METASTATIC NEOPLASM. 2) New mild-moderate right pleural effusion noted, with associated passive atelectasis.
[2019-01-11] MEDS: MAGNESIUM SULFATE-D5W PMX 1 GM in DEXTROSE/WATER 1 100ML.BAG IVPB SCH (23:09)
--- NOTE | 2019-01-11 23:23 | P.PN ---
Subjective Progress Note Date: 01/11/19 Principal diagnosis: small bowel obstruction notified by radiology at [address] findings of the abdomen patient was evaluated immediately she seems calm, still reports abd pain and feeling nauseaus no vomiting, not tolerating PO intake vital signs stable abdomen, mild distention, diffusely tender to palpation, rebound tenderness positive, and voluntary guarding, bowel sounds positive assessment penumatosis of small bowel loops with mild-moderate dilatation jujenum and proximal ileum (worse compared to CT 01/02) concerning for early signs of bowel necrosis check lactic acid and ABG monitor vital signs closely paged general surgery director of public relations , and left a voice message on perfect serve. await call back start IV flagyl 500 mg q8hr NPO IVF with normal saline pain control will consider transfering patient to the ICU or step down unit depending on further data once available (surgery evaluation and blood work results ) for close monitoring 40 minutes spent in critical time evaluation , assessment and counseling and coordinating care. update 2350 reevaluated the patient , still having stable vital signs, patient reports feeling the same as since she came in to the hospital , poor apetite, abd pain , nausea, no vomting, no bowel movement abd exam unchanged compared to above. labs back ABG, unremarkable lactic acid , within normal limits I will continue current plan , IVF hydration , pain control , and IV flagyl still await general surgery call back, paged again I will transfer patient to the step down unit at this time Objective - Vital Signs Vital signs: Vital Signs Temp 98.3 F 01/11/19 19:16 Pulse 77 01/11/19 19:16 Resp 18 01/11/19 19:16 BP 111/73 01/11/19 19:16 Pulse Ox 99 01/11/19 19:16 Intake & Output 01/11/19 01/11/19 01/12/19 06:59 18:59 06:59 Intake Total 420 Balance 420 Weight 48.081 kg Intake: Oral 420 Other: Voiding Method Bedside Commode # Voids 3 - Labs CBC & Chem 7: 01/10/19 09:14 01/11/19 11:49 Labs: Abnormal Lab Results - Last 24 Hours (Table) 01/11/19 Range/Units 11:49 Sodium 131 L (137-145) mmol/L Carbon Dioxide 21 L (22-30) mmol/L Creatinine 0.39 L (0.52-1.04) mg/dL Calcium 7.7 L (8.4-10.2) mg/dL Magnesium 1.0 L (1.6-2.3) mg/dL Microbiology - Last 24 Hours (Table) 01/06/19 17:20 Blood Culture - Preliminary Blood No Growth after 120 hours
[2019-01-11 23:43] LABS: ABG Base Excess -1.1 mmol/L; ABG HCO3 23 mmol/L (21-25); ABG Oxygen Saturation 93.7 % (94-97); ABG PCO2 35 mmHg (35-45); ABG PH 7.43 (7.35-7.45); ABG PO2 67 mmHg (83-108); ABG TCO2 24 mmol/L (19-24); Allen Test Performed? Yes
[2019-01-11] MEDS: ZOLPIDEM 5 MG TAB PO PRN (23:53)
[2019-01-11] MEDS: ALPRAZolam 0.5 MG TAB PO PRN (23:53)
[2019-01-12] MEDS: MAGNESIUM SULFATE-D5W PMX 1 GM in DEXTROSE/WATER 1 100ML.BAG IVPB SCH ×3 (00:59→03:33)
[2019-01-12] MEDS: HYDROmorphone 2 MG/ML 1 ML SYRINGE IVP PRN ×4 (02:34→22:09)
[2019-01-12 06:02] LABS: Anisocytosis Marked; HCT 27.3 % (34.0-46.0); HGB 8.7 gm/dL (11.4-16.0); MCH 34.7 pg (25.0-35.0); MCHC 31.7 g/dL (31.0-37.0); MCV 109.3 fL (80.0-100.0); Macrocytosis Marked; Platelet Count 242 k/uL (150-450); RBC 2.49 m/uL (3.80-5.40); RDW 24.5 % (11.5-15.5); WBC 4.9 k/uL (3.8-10.6)
[2019-01-12] MEDS: SODIUM CHLORIDE 0.9% 1,000 ML IV SCH ×2 (06:02→21:58)
[2019-01-12] MEDS: metroNIDAZOLE-NS PMX 500 MG in SALINE 1 100ML.BAG IVPB SCH ×3 (06:06→23:27)
[2019-01-12] MEDS: DRONABINOL 2.5 MG CAP PO SCH (06:11)
[2019-01-12 06:32] LABS: African American GFR (CKD) >90 (>60 ml/min/1.73 sqM); Anion Gap 4 mmol/L; Blood Urea Nitrogen 6 mg/dL (7-17); Calcium 7.6 mg/dL (8.4-10.2); Carbon Dioxide 23 mmol/L (22-30); Chloride 104 mmol/L (98-107); Glucose 104 mg/dL (74-99); Magnesium 2.4 mg/dL (1.6-2.3); Potassium 3.5 mmol/L (3.5-5.1); Sodium 131 mmol/L (137-145)
[2019-01-12] MEDS: HEPARIN SODIUM,PORCINE 5,000 UNIT/ML 1 ML VIAL SQ SCH ×3 (08:51→23:27)
[2019-01-12] MEDS: PANTOPRAZOLE 40 MG/10 ML VIAL IVP SCH (08:52)
--- NOTE | 2019-01-12 10:11 | P.PN ---
Subjective Progress Note Date: 01/12/19 CHIEF COMPLAINT: Small bowel obstruction HISTORY OF PRESENT ILLNESS: The patient is a 68-year-old female with history of small bowel obstruction and stage IV breast cancer. She reports history of chr onic recurrent small bowel obstruction dating back almost 10 years ago. She also confirms personal history of appendectomy including hysterectomy and multiple abdominal surgeries as a result. She reports at least 4+ episodes of bowel obstruction lifetime where she had only 1 episode of laparotomy with lysis of adhesions. She reports seeing her oncologist in [facility] Dr. Clarke who did a computed tomography scan confirming metastatic disease into the abdominal cavity. She has hydronephrosis of the right kidney. She was last hospitalized less than 10 days ago for small bowel obstruction. At that time, she was discharged and did not want surgery. She then returned back to the hospital for similar complaints. Since her current hospitalization, she had declined any surgical intervention. She did not want an NG tube. She is currently undergoing chemotherapy. As of yesterday, she reported worsening abdominal pain. A computed tomography scan was obtained. No reports of fevers or chills. Findings now demonstrate pneumatosis intestinalis. As a result of findings general surgery was asked to reevaluate as the patient initially declined any surgery since her last assessment, 01/08/2019. Now, as her pain is worse, she is seeking surgical intervention. Currently, she is undergoing chemotherapy. ROS: Recent reports of nausea and vomiting. No bowel movements. No fevers or chills. No new chest pain. No productive sputum PHYSICAL EXAM: VITAL SIGNS: Reviewed CONSTITUTIONAL: Well developed and in no acute distress. EYES: Conjuctivae without sclera icterus. Extraocular movements grossly intact. HEAD, EARS, NOSE, THROAT: Moist buccal mucosa. Head is atraumatic, no rmocephalic. Hears conversational speech. No nasal drainage. NECK: Supple. No thyroidomegaly. RESPIRATORY: Non-labored respirations and equal bilateral excursions. CARDIOVASCULAR: Palpable 2+ radial pulses. Regular rate. Regular rhythm. ABDOMEN: Mild distention. Generalized tenderness. MUSCULOSKELETAL: No gross deformity of the lower extremities noted. No clubbing. No cyanosis. SKIN: Good skin turgor. Well perfused. NEUROLOGIC: Cranial nerves I through XII grossly intact. No focal or l ateralizing signs. PSYCH: Appropriate affect. Alert and oriented to person, place and time. CLINCAL LABS: White blood cell count normal. Platelets normal STUDIES: CT of the abdomen and pelvis independently reviewed by me demonstrating mesenteric swirl of the right lower quadrant including possible right inguinal hernia. Pneumatosis intestinalis primarily of the left lower quadrant and left upper quadrant seen. No free air identified. Hydronephrosis of the right kidney pelvis identified. REPORT: Radiology report also reviewed demonstrating a large right pleural effusion and metastatic disease within the abdomen. ASSESSMENT: 1. Small bowel obstruction with pneumatosis intestinalis 2. Metastatic breast cancer to the abdomen PLAN: 1. I reviewed with her surgical options including nonsurgical options. With a history of metastatic disease to the abdomen, she may have frozen abdomen. I told her that findings of frozen abdomen limits benefits of surgical intervention. As result, immediate abdominal closure may occur for frozen abdomen. Additionally, with pneumatosis intestinalis, risk of bowel is present hence resection may be warranted. I did review with her that surgical options are limited with metastatic disease to the abdomen. Mortality is high. Alternatively, hospice may be reviewed. Patient wanted to proceed with surgical intervention. I recommend nasogastric tube decompression. ICU postoperative care also described. 2. Overall, perioperative complications including mortality is high as she is currently under chemotherapy as well. 3. Overall prognosis is guarded Critical care time, 34 minutes Objective - Vital Signs Vital signs: Vital Signs Temp 97.8 F 01/12/19 03:49 Pulse 76 01/12/19 03:51 Resp 18 01/12/19 03:51 BP 89/54 01/12/19 03:49 Pulse Ox 96 01/12/19 03:49 Intake & Output 01/11/19 01/12/19 01/12/19 18:59 06:59 18:59 Intake Total 420 500 Output Total 400 Balance 420 100 Weight 48.081 kg 51.1 kg Intake: IV 500 Sodium Chloride 0.9% 1, 500 000 ml @ 100 mls/hr IV . Q10H [facility] Rx#:[id number] Oral 420 Output: Urine 400 Other: Voiding Method Bedside Commode # Voids 3 - Labs CBC & Chem 7: 01/12/19 05:35 01/12/19 05:35 Labs: Abnormal Lab Results - Last 24 Hours (Table) 01/11/19 01/11/19 01/12/19 Range/Units 11:49 23:40 05:35 RBC 2.49 L (3.80-5.40) m/uL Hgb 8.7 L (11.4-16.0) gm/dL Hct 27.3 L (34.0-46.0) % MCV 109.3 H (80.0-100.0) fL RDW 24.5 H (11.5-15.5) % Macrocytosis Marked A ABG pO2 67 L (83-108) mmHg ABG O2 Saturation 93.7 L (94-97) % Sodium 131 L (137-145) mmol/L Carbon Dioxide 21 L (22-30) mmol/L BUN (7-17) mg/dL Creatinine 0.39 L (0.52-1.04) mg/dL Glucose (74-99) mg/dL Calcium 7.7 L (8.4-10.2) mg/dL Magnesium 1.0 L (1.6-2.3) mg/dL 01/12/19 Range/Units 05:35 RBC (3.80-5.40) m/uL Hgb (11.4-16.0) gm/dL Hct (34.0-46.0) % MCV (80.0-100.0) fL RDW (11.5-15.5) % Macrocytosis ABG pO2 (83-108) mmHg ABG O2 Saturation (94-97) % Sodium 131 L (137-145) mmol/L Carbon Dioxide (22-30) mmol/L BUN 6 L (7-17) mg/dL Creatinine 0.43 L (0.52-1.04) mg/dL Glucose 104 H (74-99) mg/dL Calcium 7.6 L (8.4-10.2) mg/dL Magnesium 2.4 H (1.6-2.3) mg/dL Microbiology - Last 24 Hours (Table) 01/06/19 17:20 Blood Culture - Preliminary Blood No Growth after 120 hours Assessment and Plan (1) Abdominal pain Current Visit: Yes Status: Chronic Priority: High Code(s): R10.9 - UNSPECIFIED ABDOMINAL PAIN SNOMED Code(s): 34557428 (2) Dehydration Current Visit: Yes Status: Acute Code(s): E86.0 - DEHYDRATION SNOMED Code(s): 81737857 (3) Intractable vomiting Current Visit: Yes Status: Acute Code(s): R11.10 - VOMITING, UNSPECIFIED SNOMED Code(s): 349492887 (4) Metastatic breast cancer Current Visit: Yes Status: Chronic Priority: High Code(s): C50.919 - MALIGNANT NEOPLASM OF UNSP SITE OF UNSPECIFIED FEMALE BREAST SNOMED Code(s): 160627605 (5) Small bowel obstruction Current Visit: No Status: Acute Code(s): K56.609 - UNSP INTESTNL OBST, UNSP TO PARTIAL VERSUS COMPLETE OBST SNOMED Code(s): 982583296
--- NOTE | 2019-01-12 10:46 | P.PN ---
Subjective Progress Note Date: 01/12/19 (Delayed charting seen 8:15 AM) Principal diagnosis: abdominal pain Patient is a 68-year-old female with a past medical history of stage IV breast cancer with metastases to the abdomen and liver, insomnia, and weight loss. She was recently hospitalized here from a high of 01/05 secondary to small bowel obstruction which was conservatively managed. On presentation to the ER here her vital signs were within normal limits. Laboratory analysis showed a low sodium at 131, and hemoglobin of 10.5 which is chronic for her. She underwent a KUB which showed mild intestinal ileus. She was admitted for further management. She was made nothing by mouth and started on pain medications. Surgery was consulted who recommended conservative management with a clear liquid diet and IV fluids. Oncology was consulted who felt that her pain medicines should be optimized and requested records from her primary oncologist Dr. Clarke out of [facility]. She continued to experience significant abdominal pain, she did not have any bowel movement since admission, and she was unable to tolerate oral intake. On 01/11 she reported increased abdominal pain with decreased responsiveness to Dilaudid. She was started on a fentanyl patch. A CT abdomen and pelvis was ordered but ultimately showed a small bowel obstruction and pneumatosis intestinalis as well as a right-sided pleural effusion. Patient seen and examined at bedside. Discussed her overall prognosis with small bowel obstruction and pneumatosis intestinalis which can be life- threatening. Patient would like to proceed with surgery and life-sustaining measures. We did discuss option of pain control going home with hospice however she would like to attempt surgery at this point in time if it will benefit her. She reconfirms that she is a DO NOT RESUSCITATE but would like everything up until that point including IV vasopressors if needed. Her abdominal pain is slightly better after fentanyl was started yesterday, she is having some rebound. She denies any chest pain or shortness of breath. Objective - Vital Signs Vital signs: Vital Signs Temp 97.8 F 01/12/19 03:49 Pulse 76 01/12/19 03:51 Resp 18 01/12/19 03:51 BP 89/54 01/12/19 03:49 Pulse Ox 96 01/12/19 03:49 Intake & Output 01/11/19 01/12/19 01/12/19 18:59 06:59 18:59 Intake Total 420 500 Output Total 400 Balance 420 100 Weight 48.081 kg 51.1 kg Intake: IV 500 Sodium Chloride 0.9% 1, 500 000 ml @ 100 mls/hr IV . Q10H [facility] Rx#:[id number] Oral 420 Output: Urine 400 Other: Voiding Method Bedside Commode # Voids 3 - Exam General: ill appearing, no distress, appears older than stated age, cachectic, temporal wasting Derm: Erythema of the distal tips of digits of bilateral hands with desquamation of skin consistent with hand and foot syndrome secondary to Xeloda warm, dry Head: atraumatic, normocephalic, symmetric Eyes: EOMI, no lid lag, anicteric sclera Mouth: no lip lesion, mucus membranes dry Cardiovascular: S1S2 reg, no murmur, positive posterior tibial pulse bilateral, Lungs: CTA bilateral, no rhonchi, no rales , no accessory muscle use Abdominal: soft, + tender palpation diffusely, no guarding, + rebound, no appreciable organomegaly Ext: no gross muscle atrophy,1+ edema, no contractures Neuro: CN II-XI grossly intact, no focal neuro deficits Psych: Alert, oriented, appropriate affect - Labs CBC & Chem 7: 01/12/19 05:35 01/12/19 05:35 Labs: Abnormal Lab Results - Last 24 Hours (Table) 01/11/19 01/11/19 01/12/19 Range/Units 11:49 23:40 05:35 RBC 2.49 L (3.80-5.40) m/uL Hgb 8.7 L (11.4-16.0) gm/dL Hct 27.3 L (34.0-46.0) % MCV 109.3 H (80.0-100.0) fL RDW 24.5 H (11.5-15.5) % Macrocytosis Marked A ABG pO2 67 L (83-108) mmHg ABG O2 Saturation 93.7 L (94-97) % Sodium 131 L (137-145) mmol/L Carbon Dioxide 21 L (22-30) mmol/L BUN (7-17) mg/dL Creatinine 0.39 L (0.52-1.04) mg/dL Glucose (74-99) mg/dL Calcium 7.7 L (8.4-10.2) mg/dL Magnesium 1.0 L (1.6-2.3) mg/dL 01/12/19 Range/Units 05:35 RBC (3.80-5.40) m/uL Hgb (11.4-16.0) gm/dL Hct (34.0-46.0) % MCV (80.0-100.0) fL RDW (11.5-15.5) % Macrocytosis ABG pO2 (83-108) mmHg ABG O2 Saturation (94-97) % Sodium 131 L (137-145) mmol/L Carbon Dioxide (22-30) mmol/L BUN 6 L (7-17) mg/dL Creatinine 0.43 L (0.52-1.04) mg/dL Glucose 104 H (74-99) mg/dL Calcium 7.6 L (8.4-10.2) mg/dL Magnesium 2.4 H (1.6-2.3) mg/dL Microbiology - Last 24 Hours (Table) 01/06/19 17:20 Blood Culture - Preliminary Blood No Growth after 120 hours Assessment and Plan Assessment: Small bowel obstruction with pneumotosis intestinalis likely secondary to known metastatic disease - d/w surgery and plan is for OR today. Patient is a high risk of mortality discussed with patient option of hospice and would like to proceed with surgery - NPO - Pain control - Antiemetics - plan is for transfer to ICU after surgery Right sided pleural effusion - Pulm has been consulted Intractable abdominal pain with intractable nausea secondary to above -fentanyl patch -Dilaudid for breakthrough pain -Encourage oral morphine use -Zofran Severe protein calorie malnutrition with cachexia and BMI of 17.6 -Continue clear ensure when tolerating PO -Dietitian recommendations -Marinol stopped due to NPO but should be restarted when okay for diet Hyponatremia, suspect secondary to low solute intake -Continue with IV fluids -Repeat basic metabolic profile in a.m. Macrocytic anemia -RBC folate and B12 within normal limits, iron studies within normal limits -Follow CBC Metastatic breast cancer with metastases to the abdomen -Await records and Dr. Clarke's office -Oncology recommendations DVT prophylaxis: Heparin Discussed with: Patient, nursing Anticipated discharge: 4-[address]: Home with home health A total of 35 minutes was spent on the care of this complex patient more than 50% of the time was spent in counseling and care coordination.
[2019-01-12] MEDS ORDERED: Potassium Replacement Protocol 1 EACH MISC MISCELLANE PRN (12:20)
[2019-01-12 12:23] LABS: INR 0.9 (<1.2)
[2019-01-12 12:24] LABS: Partial Thromboplastin Time 40.7 sec (22.0-30.0)
[2019-01-12] MEDS ORDERED: LORazepam 2 MG/ML INJ IV STA (12:34)
[2019-01-12] MEDS: POTASSIUM CHLORIDE 10 MEQ in WATER FOR INJECTION 1 100ML.BAG IVPB SCH ×3 (13:35→21:58)
[2019-01-12] MEDS ORDERED: IV FLUID CONTINUATION 1,000 ML IV ONE (15:36)
[2019-01-12] MEDS ORDERED: LACTATED RINGERS 1,000 ML IV ONE (15:45)
[2019-01-12] MEDS ORDERED: MIDAZOLAM (PF) 2 MG/2 ML VIAL IVP ONE (16:25)
[2019-01-12] MEDS ORDERED: fentaNYL (PF) 50 MCG/ML 2 ML AMP IVP ONE (16:26)
[2019-01-12] MEDS ORDERED: ONDANSETRON 4 MG/2 ML VIAL IVP ONE (16:35)
[2019-01-12] MEDS ORDERED: NALOXONE 0.4 MG/ML 1 ML VIAL IV PRN (16:40)
[2019-01-12] MEDS ORDERED: VECURONIUM 10 MG VIAL IV ONE (17:20)
[2019-01-12] MEDS ORDERED: SUCCINYLCHOLINE CHLORIDE 100 MG/5 ML SYR IV ONE (17:20)
[2019-01-12] MEDS ORDERED: MIDAZOLAM 2 MG/2 ML VIAL ONE (17:20)
[2019-01-12] MEDS ORDERED: fentaNYL (PF) 50 MCG/ML 2 ML AMP ONE (17:20)
[2019-01-12] MEDS ORDERED: NEOSTIGMINE 1 MG/ML 10 ML VIAL ONE (17:20)
[2019-01-12] MEDS ORDERED: LIDOCAINE 1% INJ 10MG/ML (20 ML MDV) ONE (17:20)
[2019-01-12] MEDS ORDERED: GLYCOPYRROLATE 0.2 MG/ML 2 ML VIAL ONE (17:20)
[2019-01-12] MEDS ORDERED: PROPOFOL 10 MG/ML 20 ML VIAL IV ONE (17:20)
[2019-01-12] MEDS ORDERED: CALCIUM CHLORIDE 100 MG/ML 10 ML SYRINGE ONE (17:20)
[2019-01-12] MEDS ORDERED: PHENYLEPHRINE-0.9% NACL SYG 1 MG/10 ML SYRINGE ONE (17:20)
[2019-01-12] MEDS ORDERED: ROCURONIUM BROMIDE 10 MG/ML 10 ML VIAL IV ONE (17:20)
--- NOTE | 2019-01-12 17:25 | P.CNPUL ---
History of Present Illness Consult date: 01/12/19 Reason for consult: pleural effusion History of present illness: This is a 68-year-old female patient with metastatic breast cancer. The patient is in the hospital because of a bowel obstruction. The patient hasn't been able to eat for more than 10 days. She's been hospitalized for almost 6 days where she was unable to eat and she hasn't been able to pass gas or any bowel movement. NG tube is in place and output remains considerably high. CAT scan of the abdomen and pelvis was ordered and it showed small bowel obstruction and there is concern for pneumatosis intestinalis. It was also noted that the patient has a small to moderate-sized right-sided pleural effusion. In terms of her breast cancer, the patient was diagnosed several years ago and she has received most of her care through [facility]. She underwent a initial lumpectomy and radiation therapy. Following that she received a total of 5 years of Arimidex treatment. Around 2 years ago, her cancer recurred and was metastatic and she was found on systemic chemotherapy with doxorubicin and Cytoxan and the patient was subsequently placed on oral Xeloda. The patient also has had several abdominal surgeries. She also reports a previous bowel obstruction. This point in time the patient is awake and alert. She is a bit weak. She has been able to eat and she is obviously lacking behind on her nutrition. Her albumin level has been down to 2.0. Her CA 2729 level was up to 71 with a CVA 15 3 level of 629. Her total serum iron has been also low at 23. Her current hemoglobin is at 8.7 her white cell count of 4.5. The patient will be taken to the operating room today for an expert laparotomy and lysis of adhesions. There is history of metastases to her abdomen and the metastatic disease could have been also contributing to her bowel obstruction. As far as the pleural effusion, this has not been been drained in the past. The lung bases based on the CAT scan of the abdomen shows no evidence of any metastatic or other poor disease or another if his or lesions. Review of Systems Constitutional: Reports daytime sleepiness, Reports fatigue, Reports lethargy, Reports poor appetite, Reports weakness, Reports weight loss Eyes: denies as per HPI, denies blurred vision, denies bulging eye, denies decreased vision, denies diplopia, denies discharge, denies dry eye, denies irritation, denies itching, denies pain, denies photophobia, denies loss of peripheral vision, denies loss of vision, denies tunnel vision/blind spots Ears: deny: decreased hearing, ear discharge, earache, tinnitus Ears, nose, mouth and throat: Reports as per HPI Breasts: left: as per HPI (Left breast at 2) Cardiovascular: Reports dyspnea on exertion, Reports shortness of breath Respiratory: Reports dyspnea Gastrointestinal: Reports as per HPI (History of bowel obstruction as mentioned above) Genitourinary: Denies dysuria, Denies hematuria Menstruation: Reports as per HPI Musculoskeletal: Reports as per HPI Musculoskeletal: absent: ankle pain, ankle stiffness, ankle swelling Integumentary: Reports as per HPI Neurological: Reports as per HPI, Reports weakness Psychiatric: Reports as per HPI Endocrine: Reports as per HPI, Reports fatigue Hematologic/Lymphatic: Reports as per HPI Past Medical History Past Medical History: Cancer Additional Past Medical History / Comment(s): Metastatic breast cancer, details discussed above and the patient was receiving oral Xeloda History of Any Multi-Drug Resistant Organisms: None Reported Past Surgical History: Appendectomy, Cholecystectomy, Hysterectomy Additional Past Surgical History / Comment(s): Lumpectomy involving the left breast, previous history of abdominal surgery for small bowel obstruction Past Anesthesia/Blood Transfusion Reactions: No Reported Reaction Past Psychological History: No Psychological Hx Reported Smoking Status: Never smoker Past Alcohol Use History: None Reported Past Drug Use History: None Reported - Past Family History Father Family Medical History: Cancer Mother Family Medical History: Cancer Medications and Allergies Home Medications Medication Instructions Recorded Confirmed Type ALPRAZolam [Xanax] 0.5 mg PO TID PRN 01/02/19 01/06/19 History Aspirin EC [Ecotrin Low Dose] 81 mg PO DAILY 01/02/19 01/06/19 History Capecitabine [Xeloda] 500 mg PO TID 01/02/19 01/06/19 History Metoclopramide HCl [Reglan] 5 mg PO BID 01/02/19 01/06/19 History Morphine Sulfate Ir [MSIR] 15 mg PO BID PRN 01/02/19 01/06/19 History Zolpidem Tartrate [Ambien Cr] 12.5 mg PO HS 01/02/19 01/06/19 History Docusate [Colace] 100 mg PO BID 01/06/19 01/06/19 History Mirabegron [Myrbetriq] 50 mg PO DAILY 01/06/19 01/06/19 History Allergies Allergy/AdvReac Type Severity Reaction Status Date / Time No Known Allergies Allergy Verified 01/06/19 17:16 Physical Exam Vitals: Vital Signs Temp Pulse Resp BP Pulse Ox 01/12/19 16:51 82 18 92/54 97 01/12/19 16:42 86 18 92/55 99 01/12/19 15:37 97.4 F L 79 18 110/70 99 01/12/19 08:00 97.8 F 76 14 103/67 97 01/12/19 03:51 76 18 01/12/19 03:49 97.8 F 76 18 89/54 96 01/12/19 01:50 98.9 F 76 18 95/58 95 01/12/19 01:22 98.2 F 75 18 94/59 96 01/11/19 19:16 98.3 F 77 18 111/73 99 Intake and Output 01/12/19 01/12/19 01/12/19 06:59 14:59 22:59 Intake Total 500 Output Total 400 500 Balance 100 -500 Intake: IV 500 Sodium Chloride 0.9% 1, 500 000 ml @ 100 mls/hr IV . Q10H [facility] Rx#:[id number] Output: Urine 400 500 Other: Voiding Method Bedside Commode Bedside Commode Weight 51.1 kg Gen. appearance weak frail elderly female patient on acute distress BMI is 18.7 Head exam was generally normal. There was no scleral icterus or corneal arcus. Mucous membranes were moist. Neck was supple and without jugular venous distension, thyromegaly, or carotid bruits. Carotids were easily palpable bilaterally. There was no adenopathy. The patient has an NG tube in place with greenish amount of material being drained in the suction canister. Lungs sounds are diminished in the right lung base along with some dullness to percussion. Breath sounds are diminished in the right lung base. Breath sounds of normal within the left lung. Cardiac exam revealed the PMI to be normally situated and sized. The rhythm was regular and no extrasystoles were noted during several minutes of auscultation. The first and second heart sounds were normal and physiologic splitting of the second heart sound was noted. There were no murmurs, rubs, clicks, or gallops. Abdomen slightly distended. It's nontender. Bowel sounds are absent. No organomegaly. No direct tenderness amoxicillin guarding at this point in time. Examination of the extremities revealed easily palpable radial, femoral and pedal pulses. There was no cyanosis, clubbing or edema. Examination of the skin revealed no evidence of significant rashes, suspicious appearing nevi or other concerning lesions. Neurologically awake and alert and is no focal neurological deficit. Results - Laboratory Findings CBC and BMP: 01/12/19 05:35 01/12/19 05:35 ABG ABG pH 7.43 (7.35-7.45) 01/11/19 23:40 ABG pCO2 35 mmHg (35-45) 01/11/19 23:40 ABG pO2 67 mmHg (83-108) L 01/11/19 23:40 ABG O2 Saturation 93.7 % (94-97) L 01/11/19 23:40 PT/INR, D-dimer PT 10.0 sec (9.0-12.0) 01/12/19 10:58 INR 0.9 (<1.2) 01/12/19 10:58 Abnormal lab findings: Abnormal Labs 01/06/19 01/06/19 01/07/19 17:20 17:20 06:00 RBC 3.12 L Hgb 10.5 L Hct 32.1 L MCV 102.9 H RDW 26.5 H Macrocytosis Marked A APTT ABG pO2 ABG O2 Saturation Sodium 131 L Potassium Carbon Dioxide BUN 6 L Creatinine 0.41 L Glucose Calcium Magnesium Iron TIBC Ferritin AST Alkaline Phosphatase Creatine Kinase <20 L Total Protein 5.3 L Albumin 2.8 L Amylase <30 L Lipase 14 L CA 27-29 RBC Folate Ur Leukocyte Esterase Moderate H Urine WBC 8 H Urine Mucus Rare H 01/07/19 01/07/19 01/07/19 10:45 10:45 10:45 RBC 2.69 L Hgb 9.1 L Hct 28.6 L MCV 106.2 H RDW 26.1 H Macrocytosis Marked A APTT ABG pO2 ABG O2 Saturation Sodium 134 L Potassium 3.4 L Carbon Dioxide BUN 5 L Creatinine 0.36 L Glucose 118 H Calcium 8.0 L Magnesium 1.3 L Iron TIBC Ferritin AST Alkaline Phosphatase 35 L Creatine Kinase Total Protein 4.5 L Albumin 2.3 L Amylase Lipase CA 27-29 RBC Folate Ur Leukocyte Esterase Urine WBC Urine Mucus 01/08/19 01/08/19 01/08/19 06:00 06:00 06:00 RBC 2.91 L Hgb 9.8 L Hct 30.9 L MCV 106.3 H RDW 26.0 H Macrocytosis Marked A APTT ABG pO2 ABG O2 Saturation Sodium Potassium Carbon Dioxide BUN Creatinine Glucose Calcium Magnesium Iron 23 L TIBC 165 L Ferritin 390.4 H AST Alkaline Phosphatase Creatine Kinase Total Protein Albumin Amylase Lipase CA 27-29 71.7 H RBC Folate 920 H Ur Leukocyte Esterase Urine WBC Urine Mucus 01/08/19 01/10/19 01/10/19 06:00 09:14 09:14 RBC 2.83 L Hgb 9.3 L Hct 29.5 L MCV 104.5 H RDW 24.7 H Macrocytosis Marked A APTT ABG pO2 ABG O2 Saturation Sodium 132 L 133 L Potassium 2.4 L* Carbon Dioxide BUN Creatinine 0.45 L 0.41 L Glucose Calcium 7.8 L 7.4 L Magnesium Iron TIBC Ferritin AST 11 L 11 L Alkaline Phosphatase Creatine Kinase Total Protein 4.5 L 4.1 L Albumin 2.2 L 2.0 L Amylase Lipase CA 27-29 RBC Folate Ur Leukocyte Esterase Urine WBC Urine Mucus 01/11/19 01/11/19 01/12/19 11:49 23:40 05:35 RBC 2.49 L Hgb 8.7 L Hct 27.3 L MCV 109.3 H RDW 24.5 H Macrocytosis Marked A APTT ABG pO2 67 L ABG O2 Saturation 93.7 L Sodium 131 L Potassium Carbon Dioxide 21 L BUN Creatinine 0.39 L Glucose Calcium 7.7 L Magnesium 1.0 L Iron TIBC Ferritin AST Alkaline Phosphatase Creatine Kinase Total Protein Albumin Amylase Lipase CA 27-29 RBC Folate Ur Leukocyte Esterase Urine WBC Urine Mucus 01/12/19 01/12/19 05:35 10:58 RBC Hgb Hct MCV RDW Macrocytosis APTT 40.7 H ABG pO2 ABG O2 Saturation Sodium 131 L Potassium Carbon Dioxide BUN 6 L Creatinine 0.43 L Glucose 104 H Calcium 7.6 L Magnesium 2.4 H Iron TIBC Ferritin AST Alkaline Phosphatase Creatine Kinase Total Protein Albumin Amylase Lipase CA 27-29 RBC Folate Ur Leukocyte Esterase Urine WBC Urine Mucus Assessment and Plan Plan: 1 small bowel obstruction, failed conservative measures of gastric decompression and bowel rest. The patient has a possibility of most of the bowel/abdominal cavity causing an anatomic bowel obstruction. Also there is a possibility of adhesions causing small bowel obstruction. The patient has an NG tube in place. The patient be taken to the operating room for an expiratory laparotomy. The patient also has developed a new pneumatosis intestinalis along with a small bowel obstruction and the follow-up CAT scan of the abdomen showed prominent dilatation of the jejunum and proximal ileum with the bowel loops reaching up to 4.5 cm in size throughout the left upper quadrant. There is also heterogeneous infiltrating peritoneal soft tissue masses seen in the anterior pararenal space as well as the mesocolon and subperitoneal space of the mesentery and this obviously raises the concern for metastatic neoplasm. 2 metastatic breast cancer, stage IV with questionable metastases to her yas ls/abdomen 3 right-sided pleural effusion [id number] in size, could be possibly malignant 4 chronic anemia 5 hypo-albuminemia, likely nutritional as the patient has been nothing by mouth for more than text days and her overall oral intake and cardiac intake has been extremely low Plan Expiratory laparotomy today. We'll obtain a dietary consultation for TPN. The patient has a right-sided Mediport that can be utilized. The right-sided pleural effusion were monitored and noted to be draining appropriately drained a later stage and the fluid will be sent for analysis. The priority for nausea for this patient to undergo an excellent laparotomy. It's likely that the patient will need an ICU evaluation and management postop. We'll continue to follow.
--- NOTE | 2019-01-12 17:26 | P.HPADDEND ---
H&P Addendum H&P Addendum Date: 01/12/19 Benefits and risks of procedure described. Patient family at bedside. She is aware that she needs to be full code to proceed with surgery for which she agreed. Patient will be full code for the timing of the procedure. After surgery she will be placed on no CODE STATUS per her wishes.
[2019-01-12] MEDS: METOCLOPRAMIDE 5 MG/ML 2 ML VIAL IVP SCH ×2 (18:35→22:10)
[2019-01-12] MEDS: POLYETHYLENE GLYCOL 3350 17 GM POWD.PACK PO SCH (18:35)
[2019-01-12] MEDS: DOCUSATE 100 MG CAP PO SCH (18:35)
[2019-01-12] MEDS: CAPECITABINE PO SCH ×2 (18:35→21:59)
[2019-01-12] MEDS: ASPIRIN 81 MG PO SCH (18:35)
[2019-01-12] MEDS: Mirabegron [Myrbetriq] PO SCH (18:35)
[2019-01-12] MEDS: TRIAMCINOLONE ACET 0.1% OINTMENT 15 GM TUBE TOPICAL SCH ×2 (18:36→22:00)
[2019-01-12] MEDS ORDERED: ACETAMINOPHEN IV (For NPO) 1,000 MG in EMPTY BAG 1 BAG IVPB ONE (20:12)
--- NOTE | 2019-01-12 20:25 | P.OP ---
Date of Procedure: 01/12/19 Description of Procedure: Date of Procedure: 01/12/19 SURGEON: DENI VILLALOBOS MD PRIME BROKER: NONE. Preoperative Diagnosis: 1. History of multiple recurrent small bowel obstructions 2. Metastatic breast cancer stage IV to the abdomen 3. Abnormal computed tomography scan with pneumatosis intestinalis 4. Active chemotherapy status 5. Chronic pain syndrome 6. Gastroesophageal reflux disease Postoperative Diagnosis: 1. Complete small bowel obstruction right lower quadrant 2 due to peritoneal adhesions without strangulation 2. History of multiple recurrent small bowel obstructions 3. Metastatic breast cancer stage IV to the abdomen 4. Abnormal computed tomography scan with pneumatosis intestinalis 5. Active chemotherapy status 6. Chronic pain syndrome 7. Gastroesophageal reflux disease 8. Mesenteric adenopathy consistent with metastatic breast cancer Procedure(s) Performed: 1. Exploratory laparotomy with small bowel resection 2, mid jejunum 12 cm and proximal ileum 8 cm 2. Primary small bowel anastomosis 2 3. Reduction of small bowel volvulus and internal hernia, right lower quadrant 4. Takedown of internal hernia with obstruction at greater omentum right lower quadrant. 5. Application of universal incisional wound VAC system, PREVENA Anesthesia: GETA, epidural Estimated Blood Loss (ml): 10 Pathology: other (Small bowel resection 2, jejunum and ileum) Condition: critical Disposition: ICU Operative Findings: 1. No evidence of small bowel necrosis with small bowel completely viable 2. Dilated small bowel to the right lower quadrant involving mid jejunum and proximal ileum from internal hernia and small bowel volvulus 3. Chronic small bowel obstruction at mid-jejunum with functional obstruction and hypoplasia with resection performed of 10 cm with primary isoperistaltic anastomosis 4. Another chronic small bowel obstruction at proximal ileum 5 cm resected with primary small bowel anastomosis 5. Mesenteric adenopathy consistent with metastatic disease involving point of resection at ileum 6. No carcinomatosis of the peritoneum identified INDICATIONS: The patient is a 68-year-old female who presents with recurrent small bowel obstruction and metastatic breast cancer. She initially declinced any surgical intervention. As her abdominal pain grew worse, she got an abnormal computed tomography scan demonstrating pneumatosis intestinalis. Surgical intervention with exploratory laparotomy possible bowel resection was described however high risk with metastatic disease to the abdomen. Benefits and risks of the procedures were discussed. CODE status was changed from NO CODE to FULL CODE for the duration of the operation. Informed consent was obtained. The patient's family were at bedside. DESCRIPTION: The patient was brought to the operating room. An epidural was placed per anesthesia. After general induction, a Mandujano catheter was placed. The abdomen was prepped and draped in standard sterile fashion. Ioban draping was also placed. Prior to incision, a timeout protocol was confirmed with surgical team regarding patient's name including procedures to be performed. Preoperative medications were confirmed. A #10 blade was used to enter along the epigastrium and extended down to the pubis. Carefully the abdomen was entered using electro- Bovie cautery. Dilated small bowel to the right lower quadrant involving mid jejunum and proximal ileum from an internal hernia and small bowel volvulus was found. Abnormal adhesions were found along right lower quadrant of greater omentum to abdominal wall were taken down using Enseal energy device. The small volvulus was reduced. No evide nce of small bowel necrosis was found. Next, along the right lower quadrant, chronic ischemia with hypo-plasia of the small bowel involving the mid jejunum and proximal ileum was identified. Chronic small bowel obstruction at the mid- jejunum with functional obstruction and hypoplasia was found and resected of 10 cm with primary isoperistaltic anastomosis using CovBISON EndoGIA 60-mm purple and mathis tri-staple loads. Another chronic small bowel obstruction at the proximal ileum of 5 cm was resected with primary small bowel anastomosis. The cathleen-lumen was created after making enterotomies along the anti-mesenteric border of the small bowel. The enterotomy was closed using similar staple loads. The mesenteric defect was oversewn using 3-0 silk. An anti-tension stitch was placed along the seat of the anastomosis. Mesenteric adenopathy consistent with metastatic disease had involved point of resection at the ileum. No carcinomatosis of the peritoneum was identified. The resected small bowel was passed off for pathology. Next, nasogastric tube was palpated in the stomach and positioned. Moderate hard multiple stools of the transverse colon and sigmoid colon were found. No moderate sigmoid diverticulosis was found. No inguinal hernias were identified. The abdomen was irrigated with normal saline and dried. The abdomen was completely hemostatic. All instruments and gowns including gloves were changed after copiously irrigating the abdomen with over 3 L of warm normal saline until the aspirate was clear. The abdomen was dried using towels. All sponge count was verified as correct. The abdomen was closed using double stranded 0 PDS. The skin incision was reapproximated using interrupted 3-0 Vicryl for the dermis at the umbilicus. An PREVENA incisional wound VAC system was placed after covering the skin with Tegaderm. Vacuum sponge was placed over the midline incision. Tegaderm was placed over the sponge system. A 3 cm circular disk was cut above the umbilicus dressing. A suction device was placed. No leak within the system was confirmed. At the end of the procedure, needle, sponge, and instrument count had been verified correct by the operating room surgical technologist. The patient was sent to the postanesthesia care unit in stable condition. Intraoperative findings were described to the patient's family who were very pleased with the level of care.
[2019-01-12] MEDS: HYDROmorphone 1 MG/ML 1 ML SYRINGE IVP ONE ×3 (20:34→20:42)
[2019-01-12] MEDS: ROPIVACAINE 250 MG, HYDROMORPHONE (PF) 5 MG in SODIUM CHLORIDE 0.9% 200 ML EPIDURAL PRN (21:30)
[2019-01-12 21:34] LABS: Glucose,Whole Blood 88 mg/dL (75-99)
[2019-01-12] MEDS: ONDANSETRON 4 MG/2 ML VIAL IVP SCH (23:28)
[2019-01-13] MEDS: SODIUM CHLORIDE 0.9% 1,000 ML IV SCH ×5 (01:58→23:21)
[2019-01-13 03:21] LABS: Appearance,Urine Cloudy (Clear); Bilirubin,Urine Negative (Negative); Blood,Urine Trace (Negative); Color,Urine Yellow; Glucose,Urine (UA) Negative (Negative); Hyaline Casts,Urine 3 /lpf (0-2); Ketones,Urine 1+ (Negative); Leukocyte Esterase,Urine Large (Negative); Mucus,Urine Few /hpf; Nitrite,Urine Negative (Negative); Protein,Urine Negative (Negative); RBC,Urine 6 /hpf (0-5); Specific Gravity,Urine 1.012 (1.001-1.035); Squamous Epithelial Cell,Urine <1 /hpf (0-4); Urobilinogen,Urine <2.0 mg/dL (<2.0)
[2019-01-13] MEDS: METOCLOPRAMIDE 5 MG/ML 2 ML VIAL IVP SCH ×4 (04:13→20:13)
[2019-01-13] MEDS: ONDANSETRON 4 MG/2 ML VIAL IVP SCH ×5 (05:27→23:20)
[2019-01-13 06:00] LABS: Anisocytosis Marked; Basophils % (A) 1 %; Eosinophils # (A) 0.1 k/uL (0-0.7); Eosinophils % (A) 1 %; HCT 33.2 % (34.0-46.0); HGB 10.4 gm/dL (11.4-16.0); Hypochromasia Slight; Lymphocytes # (A) 0.9 k/uL (1.0-4.8); Lymphocytes % (A) 14 %; MCH 34.9 pg (25.0-35.0); MCHC 31.4 g/dL (31.0-37.0); MCV 111.1 fL (80.0-100.0); Mean Platelet Volume 7.1; Monocytes # (A) 0.3 k/uL (0-1.0); Monocytes % (A) 5 %; Neutrophils # (A) 5.2 k/uL (1.3-7.7); Neutrophils % (A) 79 %; Platelet Count 309 k/uL (150-450); RBC 2.98 m/uL (3.80-5.40); RDW 24.2 % (11.5-15.5); WBC 6.6 k/uL (3.8-10.6)
[2019-01-13 06:06] LABS: Macrocytosis Marked
[2019-01-13 06:10] LABS: ALT 13 U/L (9-52); AST 17 U/L (14-36); African American GFR (CKD) >90 (>60 ml/min/1.73 sqM); Albumin 1.8 g/dL (3.5-5.0); Alkaline Phosphatase 34 U/L (38-126); Anion Gap 8 mmol/L; Blood Urea Nitrogen 6 mg/dL (7-17); Calcium 7.9 mg/dL (8.4-10.2); Carbon Dioxide 18 mmol/L (22-30); Chloride 107 mmol/L (98-107); Glucose 74 mg/dL (74-99); Magnesium 1.7 mg/dL (1.6-2.3); Phosphorus 4.2 mg/dL (2.5-4.5); Sodium 133 mmol/L (137-145); Total Bilirubin 0.3 mg/dL (0.2-1.3); Total Protein 3.7 g/dL (6.3-8.2)
[2019-01-13] MEDS: metroNIDAZOLE-NS PMX 500 MG in SALINE 1 100ML.BAG IVPB SCH ×3 (06:41→23:21)
--- NOTE | 2019-01-13 08:30 | P.PN ---
Progress Note - Text Date: 01/13/2019 Time: 07 The patient is status post, exploratory laparotomy, postoperative day number 1 The patient has no complaints of nausea vomiting or headache. The patient does not complain of any lower extremity numbness or weakness. The epidural is running at 4 mL per hour. The epidural will be maintained and adjusted as ne eded.
[2019-01-13] MEDS: HEPARIN SODIUM,PORCINE 5,000 UNIT/ML 1 ML VIAL SQ SCH ×3 (08:46→23:21)
[2019-01-13] MEDS: MAGNESIUM SULFATE-D5W PMX 1 GM in DEXTROSE/WATER 1 100ML.BAG IVPB SCH ×2 (08:46→11:47)
[2019-01-13] MEDS: ASPIRIN 81 MG PO SCH (08:47)
[2019-01-13] MEDS: PIPERACILLIN-TAZOBACTAM 3.375 GM in SODIUM CHLORIDE 0.9% 100 ML IVPB SCH ×3 (08:47→23:22)
[2019-01-13] MEDS: PANTOPRAZOLE 40 MG/10 ML VIAL IVP SCH (08:47)
[2019-01-13] MEDS: HYDROmorphone 2 MG/ML 1 ML SYRINGE IVP PRN ×4 (09:00→20:09)
[2019-01-13] MEDS: TRIAMCINOLONE ACET 0.1% OINTMENT 15 GM TUBE TOPICAL SCH ×2 (10:28→21:25)
[2019-01-13] MEDS: POLYETHYLENE GLYCOL 3350 17 GM POWD.PACK PO SCH (11:02)
[2019-01-13] MEDS ORDERED: MVI, ADULT NO.4 WITH VIT K 10 ML, TRACE (CONC-1ML/DOSE) 1 ML in AMINO ACID 5%-D15W+LYTE... IV SCH ×3 (12:00)
--- NOTE | 2019-01-13 14:56 | P.PN ---
Subjective Progress Note Date: 01/13/19 This is a 68-year-old female patient with metastatic breast cancer. The patient is in the hospital because of a bowel obstruction. The patient hasn't been able to eat for more than 10 days. She's been hospitalized for almost 6 days where she was unable to eat and she hasn't been able to pass gas or any bowel movement. NG tube is in place and output remains considerably high. CAT scan of the abdomen and pelvis was ordered and it showed small bowel obstruction and there is concern for pneumatosis intestinalis. It was also noted that the patient has a small to moderate-sized right-sided pleural effusion. In terms of her breast cancer, the patient was diagnosed several years ago and she has r eceived most of her care through [facility]. She underwent a initial lumpectomy and radiation therapy. Following that she received a total of 5 years of Arimidex treatment. Around 2 years ago, her cancer recurred and was metastatic and she was found on systemic chemotherapy with doxorubicin and Cytoxan and the patient was subsequently placed on oral Xeloda. The patient also has had several abdominal surgeries. She also reports a previous bowel obstruction. This point in time the patient is awake and alert. She is a bit weak. She has been able to eat and she is obviously lacking behind on her nutrition. Her albumin level has been down to 2.0. Her CA 2729 level was up to 71 with a CVA 15 3 level of 629. Her total serum iron has been also low at 23. Her current hemoglobin is at 8.7 her white cell count of 4.5. The patient will be taken to the operating room today for an expert laparotomy and lysis of adhesions. There is history of metastases to her abdomen and the metastatic disease could have been also contributing to her bowel obstruction. As far as the pleural effusion, this has not been been drained in the past. The lung bases based on the CAT scan of the abdomen shows no evidence of any metastatic or other poor disease or another if his or lesions. On 01/13/2019 I'm seeing this patient in the follow-up. The patient is in the intensive care unit. The patient has undergone her surgery. Specifically, the patient underwent exploratory laparotomy, small bowel resection, mid jejunal resection and proximal ileal resection with primary anastomosis. There was reduction of a small bowel volvulus and internal hernia. Surgery went well and the patient was brought into the intensive care unit following that. She received a total of 2 L of IV fluids postop. NG tube still in place. Bowel sounds are quite hypoactive. Surgical site is dry clean and intact. She is awake and alert. She is not having any respiratory distress. No cough sputum production. No issues with pain and the patient has a epidural Dilaudid in place for pain control. The hemoglobin today is at 10.4 with a white cell count of 6.6. Serum bicarb is 18 with a creatinine of 0.48. Objective - Vital Signs Vital signs: Vital Signs Temp 98.2 F 01/13/19 08:00 Pulse 78 01/13/19 13:00 Resp 12 01/13/19 13:00 BP 90/66 01/13/19 13:00 Pulse Ox 99 01/13/19 13:00 Intake & Output 01/12/19 01/13/19 01/13/19 18:59 06:59 18:59 Intake Total 950 3013.514 7103 Output Total 5168 916 8840 Balance -110 0396.555 3039 Weight 56 kg 56 kg Intake: IV 950 1635 2630 Magnesium Sulfate-D5w Pmx 200 1 gm In Dextrose/Water 1 100ml.bag @ 100 mls/hr IVPB Q1H [facility] Rx#: [id number] Mvi, Adult No.4 with Vit 30 K 10 ml Trace (Conc-1Ml/ Dose) 1 ml In Amino Acid 5%-D15w+Lytes*E* 1,000 ml @ 30 mls/hr IV .Q24H [facility] Rx#:[id number] Sodium Chloride 0.9% 1, 1385 2400 000 ml @ 100 mls/hr IV . Q10H [facility] Rx#:[id number] Intake, IV Titration 343.883 Amount ACETAMINOPHEN IV (For NPO 100 ) 1,000 mg In Empty Bag 1 bag @ 400 mls/hr IVPB ONCE ONE Rx#:[id number] Ropivacaine 250 mg 43.883 Hydromorphone (Pf) 5 mg In Sodium Chloride 0.9% 200 ml @ Per Protocol EPIDURAL .Q0M PRN Rx#: [id number] metroNIDAZOLE-NS PMX 500 200 mg In Saline 1 100ml.bag @ 100 mls/hr IVPB Q8H [facility] Rx#:[id number] Output: Gastric Drainage 275 Urine 2780 206 8838 Estimated Blood Loss 10 Other: Voiding Method Bedside Commode Indwelling Catheter Indwelling Catheter - Exam Gen. appearance weak frail elderly female patient on acute distress BMI is 18.7 Head exam was generally normal. There was no scleral icterus or corneal arcus. Mucous membranes were moist. Neck was supple and without jugular venous distension, thyromegaly, or carotid bruits. Carotids were easily palpable bilaterally. There was no adenopathy. The patient has an NG tube in place with greenish amount of material being drained in the suction canister. Lungs sounds are diminished in the right lung base along with some dullness to percussion. Breath sounds are diminished in the right lung base. Breath sounds of normal within the left lung. Cardiac exam revealed the PMI to be normally situated and sized. The rhythm was regular and no extrasystoles were noted during several minutes of auscultation. The first and second heart sounds were normal and physiologic splitting of the second heart sound was noted. There were no murmurs, rubs, clicks, or gallops. Abdomen there is a mid abdominal incision/scar which is dry clean and intact. Bowel sounds are absent. No organomegaly. No direct tenderness or rebound tenderness or guarding at this point in time. Examination of the extremities revealed easily palpable radial, femoral and pedal pulses. There was no cyanosis, clubbing or edema. Examination of the skin revealed no evidence of significant rashes, suspicious appearing nevi or other concerning lesions. Neurologically awake and alert and is no focal neurological deficit. - Labs CBC & Chem 7: 01/13/19 05:33 01/13/19 05:33 Labs: Abnormal Lab Results - Last 24 Hours (Table) 01/13/19 01/13/19 01/13/19 Range/Units 02:50 05:33 05:33 RBC 2.98 L (3.80-5.40) m/uL Hgb 10.4 L (11.4-16.0) gm/dL Hct 33.2 L (34.0-46.0) % MCV 111.1 H (80.0-100.0) fL RDW 24.2 H (11.5-15.5) % Lymphocytes # 0.9 L (1.0-4.8) k/uL Macrocytosis Marked A Sodium 133 L (137-145) mmol/L Carbon Dioxide 18 L (22-30) mmol/L BUN 6 L (7-17) mg/dL Creatinine 0.48 L (0.52-1.04) mg/dL Calcium 7.9 L (8.4-10.2) mg/dL Alkaline Phosphatase 34 L (38-126) U/L Total Protein 3.7 L (6.3-8.2) g/dL Albumin 1.8 L (3.5-5.0) g/dL Urine Appearance Cloudy H (Clear) Urine Ketones 1+ H (Negative) Urine Blood Trace H (Negative) Ur Leukocyte Esterase Large H (Negative) Urine RBC 6 H (0-5) /hpf Urine WBC 133 H (0-5) /hpf Hyaline Casts 3 H (0-2) /lpf Urine Mucus Few H (None) /hpf Microbiology - Last 24 Hours (Table) 01/13/19 02:50 Urine Culture - Preliminary Urine,Voided 01/06/19 17:20 Blood Culture - Final Blood No Growth after 144 hours Assessment and Plan Plan: 1 small bowel obstruction, failed conservative measures of gastric decompression and bowel rest. The patient has a possibility of most of the bowel/abdominal cavity causing an anatomic bowel obstruction. Also there is a possibility of adhesions causing small bowel obstruction. The patient has an NG tube in place. The patient be taken to the operating room for an laparotomy. The patient also has developed a new pneumatosis intestinalis along with a small bowel obstruction and the follow-up CAT scan of the abdomen showed prominent dilatation of the jejunum and proximal ileum with the bowel loops reaching up to 4.5 cm in size throughout the left upper quadrant. There is also heterogeneous infiltrating peritoneal soft tissue masses seen in the anterior pararenal space as well as the mesocolon and subperitoneal space of the mesentery and this obviously raises the concern for metastatic neoplasm. On 01/13/2019 the patient is post expiratory laparotomy and small bowel resection 2 involving the mid Jina M and proximal ileum and the patient has undergone primary anastomosis 2 and the patient is postop day #1. The patient is doing extremely well. Bowel sounds are still absent. She has good pain control with epidural Dilaudid. She is hemodynamically stable. She has seen a total of 2 L of IV fluids. NG tube still in place. 2 metastatic breast cancer, stage IV with questionable metastases to her bowels/abdomen 3 right-sided pleural effusion [id number] in size, could be possibly malignant 4 chronic anemia 5 hypo-albuminemia, likely nutritional as the patient has been nothing by mouth for more than text days and her overall oral intake and cardiac intake has been extremely low Plan This patient is doing well postop. The patient has an NG tube in placed in she remains nothing by mouth. She'll be started on TPN which will be the liver to her through her port over the right anterior chest area. She has a stable right-sided pleural effusion. She is on antibiotics. She is postop day #1. Continue same antibiotic coverage. Monitor hemodynamics. Monitor electrolytes. Incentive spirometer. We'll continue to follow.
--- NOTE | 2019-01-13 15:19 | P.PN ---
<Tereista Weaver Gino - Last Filed: 01/13/19 15:12> Subjective Progress Note Date: 01/13/19 CHIEF COMPLAINT: abdominal pain HISTORY OF PRESENT ILLNESS: Patient is status post exploratory laparotomy with small bowel resection 2, primary small bowel anastomosis 2, reduction of small bowel volvulus and internal hernia right lower quadrant. Postop day #1. Patient reports her pain is tolerable this morning. Epidural infusing. Denies passing flatus. Tolerating ice chips and popsicles. WBC 6.6. Hemoglobin 10.4. Blood pressure has been marginal this morning. PHYSICAL EXAM: VITAL SIGNS: Reviewed GENERAL: Well-developed in no acute distress. HEENT: No sclera icterus. Extraocular movements grossly intact. Moist buccal mucosa. Head is atraumatic, normocephalic. Hears conversational speech. No nasal drainage. NECK: Supple without lymphadenopathy. CHEST: Non-labored respirations and equal bilateral excursions. CARDIOVASCULAR: Regular rate with regular rhythm. Palpable 2+ radial pulses. ABDOMEN: Soft. Nondistended. Mild tenderness. Dressing to abdomen clean dry intact. MUSCULOSKELETAL: No clubbing, cyanosis or edema. NEUROLOGIC: No focal or lateralizing signs. Cranial nerves II through XII grossly intact. PSYCH: Appropriate affect. Alert and oriented to person, place and time. SKIN: Well perfused. Good skin turgor. ASSESSMENT: 1. Small bowel obstruction, status post exploratory laparotomy with small bowel resection 2, primary small bowel anastomosis 2, reduction of small bowel volvulus and internal hernia right lower quadrant 2. Metastatic breast cancer PLAN: 1. Continue ice chips and popsicles 2. Pain control. Continue epidural. DC POD #3. 3. Incentive spirometry 4. 2L fluid bolus ordered this morning per Dr. Downey. Continue maintenance IV fluids 5. TPN to be started per dietitian Nurse practitioner note has been reviewed by physician. Signing provider agrees with the documented findings, assessment, and plan of care. Objective - Vital Signs Vital signs: Vital Signs Temp 98.2 F 01/13/19 08:00 Pulse 78 01/13/19 13:00 Resp 12 01/13/19 13:00 BP 90/66 01/13/19 13:00 Pulse Ox 99 01/13/19 13:00 Intake & Output 01/12/19 01/13/19 01/13/19 18:59 06:59 18:59 Intake Total 950 9974.596 5308 Output Total 4651 275 0881 Balance -110 4449.199 4237 Weight 56 kg 56 kg Intake: IV 950 1635 2630 Magnesium Sulfate-D5w Pmx 200 1 gm In Dextrose/Water 1 100ml.bag @ 100 mls/hr IVPB Q1H [facility] Rx#: [id number] Mvi, Adult No.4 with Vit 30 K 10 ml Trace (Conc-1Ml/ Dose) 1 ml In Amino Acid 5%-D15w+Lytes*E* 1,000 ml @ 30 mls/hr IV .Q24H [facility] Rx#:[id number] Sodium Chloride 0.9% 1, 1385 2400 000 ml @ 100 mls/hr IV . Q10H [facility] Rx#:[id number] Intake, IV Titration 343.883 Amount ACETAMINOPHEN IV (For NPO 100 ) 1,000 mg In Empty Bag 1 bag @ 400 mls/hr IVPB ONCE ONE Rx#:[id number] Ropivacaine 250 mg 43.883 Hydromorphone (Pf) 5 mg In Sodium Chloride 0.9% 200 ml @ Per Protocol EPIDURAL .Q0M PRN Rx#: [id number] metroNIDAZOLE-NS PMX 500 200 mg In Saline 1 100ml.bag @ 100 mls/hr IVPB Q8H [facility] Rx#:[id number] Output: Gastric Drainage 275 Urine 5455 381 4769 Estimated Blood Loss 10 Other: Voiding Method Bedside Commode Indwelling Catheter Indwelling Catheter - Labs CBC & Chem 7: 01/13/19 05:33 01/13/19 05:33 Labs: Abnormal Lab Results - Last 24 Hours (Table) 01/13/19 01/13/19 01/13/19 Range/Units 02:50 05:33 05:33 RBC 2.98 L (3.80-5.40) m/uL Hgb 10.4 L (11.4-16.0) gm/dL Hct 33.2 L (34.0-46.0) % MCV 111.1 H (80.0-100.0) fL RDW 24.2 H (11.5-15.5) % Lymphocytes # 0.9 L (1.0-4.8) k/uL Macrocytosis Marked A Sodium 133 L (137-145) mmol/L Carbon Dioxide 18 L (22-30) mmol/L BUN 6 L (7-17) mg/dL Creatinine 0.48 L (0.52-1.04) mg/dL Calcium 7.9 L (8.4-10.2) mg/dL Alkaline Phosphatase 34 L (38-126) U/L Total Protein 3.7 L (6.3-8.2) g/dL Albumin 1.8 L (3.5-5.0) g/dL Urine Appearance Cloudy H (Clear) Urine Ketones 1+ H (Negative) Urine Blood Trace H (Negative) Ur Leukocyte Esterase Large H (Negative) Urine RBC 6 H (0-5) /hpf Urine WBC 133 H (0-5) /hpf Hyaline Casts 3 H (0-2) /lpf Urine Mucus Few H (None) /hpf Microbiology - Last 24 Hours (Table) 01/13/19 02:50 Urine Culture - Preliminary Urine,Voided 01/06/19 17:20 Blood Culture - Final Blood No Growth after 144 hours <Salma Downey - Last Filed: 01/13/19 18:57> Subjective As she has prolonged nothing by mouth status, I have started her on TPN. Overall patient very pleased level of her surgical care. Monitor nasogastric tube outputs. She may have ice chips and popsicles including clear liquid diet. Objective - Vital Signs Vital signs: Vital Signs Temp 97.8 F 01/13/19 16:00 Pulse 87 01/13/19 17:00 Resp 15 01/13/19 17:00 BP 107/66 01/13/19 17:00 Pulse Ox 91 L 01/13/19 17:00 Intake & Output 01/12/19 01/13/19 01/13/19 18:59 06:59 18:59 Intake Total 950 9066.580 0662 Output Total 3189 471 8719 Balance -110 4632.485 3638 Weight 56 kg 56 kg Intake: IV 950 1635 3150 Magnesium Sulfate-D5w Pmx 200 1 gm In Dextrose/Water 1 100ml.bag @ 100 mls/hr IVPB Q1H [facility] Rx#: [id number] Mvi, Adult No.4 with Vit 150 K 10 ml Trace (Conc-1Ml/ Dose) 1 ml In Amino Acid 5%-D15w+Lytes*E* 1,000 ml @ 30 mls/hr IV .Q24H [facility] Rx#:[id number] Sodium Chloride 0.9% 1, 1385 2800 000 ml @ 100 mls/hr IV . Q10H [facility] Rx#:[id number] Intake, IV Titration 343.883 Amount ACETAMINOPHEN IV (For NPO 100 ) 1,000 mg In Empty Bag 1 bag @ 400 mls/hr IVPB ONCE ONE Rx#:[id number] Ropivacaine 250 mg 43.883 Hydromorphone (Pf) 5 mg In Sodium Chloride 0.9% 200 ml @ Per Protocol EPIDURAL .Q0M [facility] Rx#: [id number] metroNIDAZOLE-NS PMX 500 200 mg In Saline 1 100ml.bag @ 100 mls/hr IVPB Q8H [facility] Rx#:[id number] Output: Gastric Drainage 275 Urine 3263 983 5866 Estimated Blood Loss 10 Other: Voiding Method Bedside Commode Indwelling Catheter Indwelling Catheter - Labs CBC & Chem 7: 01/13/19 05:33 01/13/19 05:33 Labs: Abnormal Lab Results - Last 24 Hours (Table) 01/13/19 01/13/19 01/13/19 Range/Units 02:50 05:33 05:33 RBC 2.98 L (3.80-5.40) m/uL Hgb 10.4 L (11.4-16.0) gm/dL Hct 33.2 L (34.0-46.0) % MCV 111.1 H (80.0-100.0) fL RDW 24.2 H (11.5-15.5) % Lymphocytes # 0.9 L (1.0-4.8) k/uL Macrocytosis Marked A Sodium 133 L (137-145) mmol/L Carbon Dioxide 18 L (22-30) mmol/L BUN 6 L (7-17) mg/dL Creatinine 0.48 L (0.52-1.04) mg/dL Calcium 7.9 L (8.4-10.2) mg/dL Alkaline Phosphatase 34 L (38-126) U/L Total Protein 3.7 L (6.3-8.2) g/dL Albumin 1.8 L (3.5-5.0) g/dL Urine Appearance Cloudy H (Clear) Urine Ketones 1+ H (Negative) Urine Blood Trace H (Negative) Ur Leukocyte Esterase Large H (Negative) Urine RBC 6 H (0-5) /hpf Urine WBC 133 H (0-5) /hpf Hyaline Casts 3 H (0-2) /lpf Urine Mucus Few H (None) /hpf Microbiology - Last 24 Hours (Table) 01/13/19 02:50 Urine Culture - Preliminary Urine,Voided 01/06/19 17:20 Blood Culture - Final Blood No Growth after 144 hours Assessment and Plan (1) Abdominal pain Current Visit: Yes Status: Chronic Priority: High Code(s): R10.9 - UNSPECIFIED ABDOMINAL PAIN SNOMED Code(s): 98322755 (2) Dehydration Current Visit: Yes Status: Acute Code(s): E86.0 - DEHYDRATION SNOMED Code(s): 86250478 (3) Intractable vomiting Current Visit: Yes Status: Acute Code(s): R11.10 - VOMITING, UNSPECIFIED SNOMED Code(s): 625873385 (4) Metastatic breast cancer Current Visit: Yes Status: Chronic Priority: High Code(s): C50.919 - MALIGNANT NEOPLASM OF UNSP SITE OF UNSPECIFIED FEMALE BREAST SNOMED Code(s): 637488034 (5) Small bowel obstruction Current Visit: No Status: Acute Code(s): K56.609 - UNSP INTESTNL OBST, UNSP TO PARTIAL VERSUS COMPLETE OBST SNOMED Code(s): 226375267
--- NOTE | 2019-01-13 18:00 | P.PN ---
Subjective Progress Note Date: 01/13/19 (delayed charting seen at 0930) Principal diagnosis: abdominal pain Patient is a 68-year-old female with a past medical history of stage IV breast cancer with metastases to the abdomen and liver, insomnia, and weight loss. She was recently hospitalized here from a high of 01/05 secondary to small bowel obstruction which was conservatively managed. On presentation to the ER here her vital signs were within normal limits. Laboratory analysis showed a low sodium at 131, and hemoglobin of 10.5 which is chronic for her. She underwent a KUB which showed mild intestinal ileus. She was admitted for further management. She was made nothing by mouth and started on pain medications. Surgery was consulted who recommended conservative management with a clear liquid diet and IV fluids. Oncology was consulted who felt that her pain medicines should be optimized and requested records from her primary oncologist Dr. Clarke out of [facility]. She continued to experience significant abdominal pain, she did not have any bowel movement since admission, and she was unable to tolerate oral intake. On 01/11 she reported increased abdominal pain with decreased responsiveness to Dilaudid. She was started on a fentanyl patch. A CT abdomen and pelvis was ordered an ultimately showed a small bowel obstruction and pneumatosis intestinalis as well as a right-sided pleural effusion. She was seen again by general surgery and was taken to the operating room. She underwent small bowel resection secondary to to chronic small bowel obstructions as well as the small intestine volvulus. She was taken to the ICU. Has NG tube in place. Tolerated procedure well without any immediate postoperative complications. Has epidural for pain control. Patient seen and examined at bedside. No chest pain, mild shortness of breath, mild nausea, abdominal pain still present but slightly better than yesterday, not passing any gas or having any bowel movements. Discussed the possibility of a TPN patient is amenable to this and has had in the past. Objective - Vital Signs Vital signs: Vital Signs Temp 97.8 F 01/13/19 16:00 Pulse 87 01/13/19 17:00 Resp 15 01/13/19 17:00 BP 107/66 01/13/19 17:00 Pulse Ox 91 L 01/13/19 17:00 Intake & Output 01/12/19 01/13/19 01/13/19 18:59 06:59 18:59 Intake Total 950 4422.181 9670 Output Total 8572 076 6152 Balance -110 9387.385 9940 Weight 56 kg 56 kg Intake: IV 950 1635 3150 Magnesium Sulfate-D5w Pmx 200 1 gm In Dextrose/Water 1 100ml.bag @ 100 mls/hr IVPB Q1H [facility] Rx#: [id number] Mvi, Adult No.4 with Vit 150 K 10 ml Trace (Conc-1Ml/ Dose) 1 ml In Amino Acid 5%-D15w+Lytes*E* 1,000 ml @ 30 mls/hr IV .Q24H [facility] Rx#:[id number] Sodium Chloride 0.9% 1, 1385 2800 000 ml @ 100 mls/hr IV . Q10H [facility] Rx#:[id number] Intake, IV Titration 343.883 Amount ACETAMINOPHEN IV (For NPO 100 ) 1,000 mg In Empty Bag 1 bag @ 400 mls/hr IVPB ONCE ONE Rx#:[id number] Ropivacaine 250 mg 43.883 Hydromorphone (Pf) 5 mg In Sodium Chloride 0.9% 200 ml @ Per Protocol EPIDURAL .Q0M [facility] Rx#: [id number] metroNIDAZOLE-NS PMX 500 200 mg In Saline 1 100ml.bag @ 100 mls/hr IVPB Q8H [facility] Rx#:[id number] Output: Gastric Drainage 275 Urine 9129 678 1522 Estimated Blood Loss 10 Other: Voiding Method Bedside Commode Indwelling Catheter Indwelling Catheter - Exam General: ill appearing, no distress, appears older than stated age, cachectic, temporal wasting Derm: Erythema of the distal tips of digits of bilateral hands with desquamation of skin consistent with hand and foot syndrome secondary to Xeloda warm, dry Head: atraumatic, normocephalic, symmetric Eyes: EOMI, no lid lag, anicteric sclera Mouth: no lip lesion, mucus membranes dry, NGT in place Cardiovascular: S1S2 reg, no murmur, positive posterior tibial pulse bilateral, Lungs: Decreased bs bilateral, no rhonchi, no rales , no accessory muscle use Abdominal: soft, + tender palpation diffusely, no guarding, no appreciable organomegaly, hypoactive bowel sounds Ext: no gross muscle atrophy,1+ edema, no contractures Neuro: CN II-XI grossly intact, no focal neuro deficits Psych: Alert, oriented, appropriate affect - Labs CBC & Chem 7: 01/13/19 05:33 01/13/19 05:33 Labs: Abnormal Lab Results - Last 24 Hours (Table) 01/13/19 01/13/19 01/13/19 Range/Units 02:50 05:33 05:33 RBC 2.98 L (3.80-5.40) m/uL Hgb 10.4 L (11.4-16.0) gm/dL Hct 33.2 L (34.0-46.0) % MCV 111.1 H (80.0-100.0) fL RDW 24.2 H (11.5-15.5) % Lymphocytes # 0.9 L (1.0-4.8) k/uL Macrocytosis Marked A Sodium 133 L (137-145) mmol/L Carbon Dioxide 18 L (22-30) mmol/L BUN 6 L (7-17) mg/dL Creatinine 0.48 L (0.52-1.04) mg/dL Calcium 7.9 L (8.4-10.2) mg/dL Alkaline Phosphatase 34 L (38-126) U/L Total Protein 3.7 L (6.3-8.2) g/dL Albumin 1.8 L (3.5-5.0) g/dL Urine Appearance Cloudy H (Clear) Urine Ketones 1+ H (Negative) Urine Blood Trace H (Negative) Ur Leukocyte Esterase Large H (Negative) Urine RBC 6 H (0-5) /hpf Urine WBC 133 H (0-5) /hpf Hyaline Casts 3 H (0-2) /lpf Urine Mucus Few H (None) /hpf Microbiology - Last 24 Hours (Table) 01/13/19 02:50 Urine Culture - Preliminary Urine,Voided 01/06/19 17:20 Blood Culture - Final Blood No Growth after 144 hours Assessment and Plan Assessment: Small bowel obstruction and volvulus s/p resection on 01/12/19 - pain control on epidural - NGT in place - TPN per surgery - NPO - Pain control - Antiemetics - zosyn Right sided pleural effusion - Pulm recs no plan for drainage - continue to monitor Acidosis - undetermined caused - mild, repeat in AM Severe protein calorie malnutrition with cachexia and BMI of 17.6 -Continue clear ensure when tolerating PO -Dietitian recommendations -Marinol stopped due to NPO but should be restarted when okay for diet Hyponatremia, suspect secondary to low solute intake -Continue with IV fluids -Repeat basic metabolic profile in a.m. Macrocytic anemia -RBC folate and B12 within normal limits, iron studies within normal limits -Follow CBC Metastatic breast cancer with metastases to the abdomen -Await records and Dr. Clarke's office -Oncology recommendations DVT prophylaxis: Heparin Discussed with: Patient, nursing Anticipated discharge: 4-[address]: Home with home health vs [facility] A total of 35 minutes was spent on the care of this complex patient more than 50% of the time was spent in counseling and care coordination.
[2019-01-13] MEDS: FAT EMULSION 20% 250 ML in EMPTY BAG 1 BAG IV SCH (20:12)
[2019-01-13] MEDS: ALPRAZolam 0.5 MG TAB PO PRN (23:27)
[2019-01-13] MEDS: ZOLPIDEM 5 MG TAB PO PRN (23:27)
[2019-01-14] MEDS: METOCLOPRAMIDE 5 MG/ML 2 ML VIAL IVP SCH ×4 (03:40→21:24)
[2019-01-14] MEDS: ONDANSETRON 4 MG/2 ML VIAL IVP SCH ×3 (05:02→20:38)
[2019-01-14 05:58] LABS: Anisocytosis Marked; Basophils % (A) 0 %; Eosinophils # (A) 0.4 k/uL (0-0.7); Eosinophils % (A) 6 %; HCT 27.2 % (34.0-46.0); Hypochromasia Slight; Lymphocytes # (A) 0.9 k/uL (1.0-4.8); Lymphocytes % (A) 13 %; MCH 35.6 pg (25.0-35.0); MCV 111.4 fL (80.0-100.0); Mean Platelet Volume 7.3; Monocytes # (A) 0.4 k/uL (0-1.0); Monocytes % (A) 6 %; Neutrophils # (A) 5.1 k/uL (1.3-7.7); Neutrophils % (A) 74 %; Platelet Count 300 k/uL (150-450); RBC 2.44 m/uL (3.80-5.40); RDW 24.3 % (11.5-15.5); WBC 6.9 k/uL (3.8-10.6)
[2019-01-14] MEDS: metroNIDAZOLE-NS PMX 500 MG in SALINE 1 100ML.BAG IVPB SCH ×3 (06:00→22:34)
[2019-01-14 06:02] LABS: HGB 8.7 gm/dL (11.4-16.0); Macrocytosis Marked
[2019-01-14 06:12] LABS: African American GFR (CKD) >90 (>60 ml/min/1.73 sqM); Anion Gap 4 mmol/L; Blood Urea Nitrogen 5 mg/dL (7-17); Calcium 7.4 mg/dL (8.4-10.2); Carbon Dioxide 20 mmol/L (22-30); Chloride 110 mmol/L (98-107); Glucose 137 mg/dL (74-99); Magnesium 1.7 mg/dL (1.6-2.3); Phosphorus 3.4 mg/dL (2.5-4.5); Potassium 3.2 mmol/L (3.5-5.1); Sodium 134 mmol/L (137-145)
[2019-01-14] MEDS ORDERED: Potassium Replacement Protocol 1 EACH MISC MISCELLANE PRN (06:51)
[2019-01-14] MEDS ORDERED: Magnesium Replacement Protocol 1 EACH MISC MISCELLANE PRN (06:53)
--- NOTE | 2019-01-14 08:34 | P.PN ---
Progress Note - Text 01/14 656am 68-year-old female status post exploratory lap. Patient has an epidural catheter for postop pain control with the solution running at 6 mL an hour, patient has a VAS of 2 but requires IV Dilaudid every 3 hours.
[2019-01-14] MEDS: HEPARIN SODIUM,PORCINE 5,000 UNIT/ML 1 ML VIAL SQ SCH ×2 (09:12→16:18)
[2019-01-14] MEDS: PIPERACILLIN-TAZOBACTAM 3.375 GM in SODIUM CHLORIDE 0.9% 100 ML IVPB SCH ×2 (09:12→16:21)
[2019-01-14] MEDS: MAGNESIUM SULFATE-D5W PMX 1 GM in DEXTROSE/WATER 1 100ML.BAG IVPB SCH ×2 (09:12→11:00)
[2019-01-14] MEDS: HYDROmorphone 2 MG/ML 1 ML SYRINGE IVP PRN ×4 (09:13→22:09)
[2019-01-14] MEDS: POTASSIUM CHLORIDE ER 20 MEQ TAB.ER PO SCH (09:33)
[2019-01-14] MEDS ORDERED: BUMETANIDE 0.25 MG/ML 4 ML VIAL IVP STA (11:01)
[2019-01-14] MEDS: SODIUM CHLORIDE 0.9% 1,000 ML IV SCH ×2 (11:04→20:52)
[2019-01-14] MEDS: ASPIRIN 81 MG PO SCH (11:05)
[2019-01-14] MEDS: PANTOPRAZOLE 40 MG/10 ML VIAL IVP SCH (11:29)
[2019-01-14] MEDS: TRIAMCINOLONE ACET 0.1% OINTMENT 15 GM TUBE TOPICAL SCH ×2 (11:30→21:24)
[2019-01-14] MEDS: POTASSIUM BICARBONATE/CIT AC 20 MEQ TABLET.EFF NG-TUBE SCH (11:45)
[2019-01-14] MEDS: MVI, ADULT NO.4 WITH VIT K 10 ML, TRACE (CONC-1ML/DOSE) 1 ML, POTASSIUM CHLORIDE 40 MEQ... IV SCH ×4 (12:51)
--- NOTE | 2019-01-14 14:27 | P.PN ---
Subjective Progress Note Date: 01/14/19 CHIEF COMPLAINT: abdominal pain HISTORY OF PRESENT ILLNESS: Patient is status post exploratory laparotomy with small bowel resection 2, primary small bowel anastomosis 2, reduction of small bowel volvulus and internal hernia right lower quadrant. Postop day #2. Patient reports her pain is tolerable this morning. Epidural infusing. Denies passing flatus. Tolerating ice chips and popsicles. WBC 6.9. Hemoglobin 8.7, down from 10.4. Patient received over 2 L in IV fluid boluses yesterday. Potassium 3.2. Magnesium 1.7. PHYSICAL EXAM: VITAL SIGNS: Reviewed GENERAL: Well-developed in no acute distress. HEENT: No sclera icterus. Extraocular movements grossly intact. Moist buccal mucosa. Head is atraumatic, normocephalic. Hears conversational speech. No nasal drainage. NECK: Supple without lymphadenopathy. CHEST: Non-labored respirations and equal bilateral excursions. CARDIOVASCULAR: Regular rate with regular rhythm. Palpable 2+ radial pulses. ABDOMEN: Soft. Nondistended. Mild tenderness. Dressing to abdomen saturated. MUSCULOSKELETAL: No clubbing, cyanosis or edema. NEUROLOGIC: No focal or lateralizing signs. Cranial nerves II through XII grossly intact. PSYCH: Appropriate affect. Alert and oriented to person, place and time. SKIN: Well perfused. Good skin turgor. ASSESSMENT: 1. Small bowel obstruction, status post exploratory laparotomy with small bowel resection 2, primary small bowel anastomosis 2, reduction of small bowel volvulus and internal hernia right lower quadrant 2. Metastatic breast cancer PLAN: 1. Continue ice chips and popsicles. Continue NG tube until patient begins passing flatus. 2. Pain control. Continue epidural. DC POD #3. 3. Incentive spirometry 4. Continue maintenance IV fluids 5. Continue TPN 6. Replace magnesium and potassium 7. Replace optifoam dressing due to saturation Nurse practitioner note has been reviewed by physician. Signing provider agrees with the documented findings, assessment, and plan of care. Objective - Vital Signs Vital signs: Vital Signs Temp 97.6 F 01/14/19 04:00 Pulse 85 01/14/19 07:00 Resp 10 L 01/14/19 07:00 BP 86/53 01/14/19 07:00 Pulse Ox 99 01/14/19 07:00 Intake & Output 01/13/19 01/14/19 01/14/19 18:59 06:59 18:59 Intake Total 3280 1828 151 Output Total 1490 495 30 Balance 1790 1333 121 Weight 56 kg 60 kg 60 kg Intake: IV 3280 1828 151 Fat Emulsion 20% 250 ml 168 21 In Empty Bag 1 bag @ 21 mls/hr IV DAILY@1800 [facility] Rx#:[id number] Magnesium Sulfate-D5w Pmx 200 1 gm In Dextrose/Water 1 100ml.bag @ 100 mls/hr IVPB Q1H [facility] Rx#: [id number] Mvi, Adult No.4 with Vit 180 360 30 K 10 ml Trace (Conc-1Ml/ Dose) 1 ml In Amino Acid 5%-D15w+Lytes*E* 1,000 ml @ 30 mls/hr IV .Q24H [facility] Rx#:[id number] Sodium Chloride 0.9% 1, 2900 1200 100 000 ml @ 100 mls/hr IV . Q10H [facility] Rx#:[id number] metroNIDAZOLE-NS PMX 500 100 mg In Saline 1 100ml.bag @ 100 mls/hr IVPB Q8H [facility] Rx#:[id number] Output: Urine 1490 495 30 Other: Voiding Method Indwelling Catheter Indwelling Catheter - Labs CBC & Chem 7: 01/14/19 05:28 01/14/19 05:28 Labs: Abnormal Lab Results - Last 24 Hours (Table) 01/14/19 01/14/19 Range/Units 05:28 05:28 RBC 2.44 L (3.80-5.40) m/uL Hgb 8.7 L D (11.4-16.0) gm/dL Hct 27.2 L (34.0-46.0) % MCV 111.4 H (80.0-100.0) fL MCH 35.6 H (25.0-35.0) pg RDW 24.3 H (11.5-15.5) % Lymphocytes # 0.9 L (1.0-4.8) k/uL Macrocytosis Marked A Sodium 134 L (137-145) mmol/L Potassium 3.2 L (3.5-5.1) mmol/L Chloride 110 H (98-107) mmol/L Carbon Dioxide 20 L (22-30) mmol/L BUN 5 L (7-17) mg/dL Creatinine 0.37 L (0.52-1.04) mg/dL Glucose 137 H (74-99) mg/dL Calcium 7.4 L (8.4-10.2) mg/dL Microbiology - Last 24 Hours (Table) 01/13/19 02:50 Urine Culture - Preliminary Urine,Voided
--- NOTE | 2019-01-14 15:40 | P.PN ---
Subjective Progress Note Date: 01/14/19 This is a 68-year-old female patient with metastatic breast cancer. The patient is in the hospital because of a bowel obstruction. The patient hasn't been able to eat for more than 10 days. She's been hospitalized for almost 6 days where she was unable to eat and she hasn't been able to pass gas or any bowel movement. NG tube is in place and output remains considerably high. CAT scan of the abdomen and pelvis was ordered and it showed small bowel obstruction and there is concern for pneumatosis intestinalis. It was also noted that the patient has a small to moderate-sized right-sided pleural effusion. In terms of her breast cancer, the patient was diagnosed several years ago and she has r eceived most of her care through [facility]. She underwent a initial lumpectomy and radiation therapy. Following that she received a total of 5 years of Arimidex treatment. Around 2 years ago, her cancer recurred and was metastatic and she was found on systemic chemotherapy with doxorubicin and Cytoxan and the patient was subsequently placed on oral Xeloda. The patient also has had several abdominal surgeries. She also reports a previous bowel obstruction. This point in time the patient is awake and alert. She is a bit weak. She has been able to eat and she is obviously lacking behind on her nutrition. Her albumin level has been down to 2.0. Her CA 2729 level was up to 71 with a CVA 15 3 level of 629. Her total serum iron has been also low at 23. Her current hemoglobin is at 8.7 her white cell count of 4.5. The patient will be taken to the operating room today for an expert laparotomy and lysis of adhesions. There is history of metastases to her abdomen and the metastatic disease could have been also contributing to her bowel obstruction. As far as the pleural effusion, this has not been been drained in the past. The lung bases based on the CAT scan of the abdomen shows no evidence of any metastatic or other poor disease or another if his or lesions. On 01/13/2019 I'm seeing this patient in the follow-up. The patient is in the intensive care unit. The patient has undergone her surgery. Specifically, the patient underwent exploratory laparotomy, small bowel resection, mid jejunal resection and proximal ileal resection with primary anastomosis. There was reduction of a small bowel volvulus and internal hernia. Surgery went well and the patient was brought into the intensive care unit following that. She received a total of 2 L of IV fluids postop. NG tube still in place. Bowel sounds are quite hypoactive. Surgical site is dry clean and intact. She is awake and alert. She is not having any respiratory distress. No cough sputum production. No issues with pain and the patient has a epidural Dilaudid in place for pain control. The hemoglobin today is at 10.4 with a white cell count of 6.6. Serum bicarb is 18 with a creatinine of 0.48. On 01/14/2019 I'm seeing this patient for a follow-up. The patient is looking assess the same compared to yesterday. She is still having abdominal pain. Epidural is running at 4 mg an hour Dilaudid. No significant hypotension. Additional pain control was being given by a fentanyl patch a total of 37.5 g subcu every 72 hours. The patient is on TPN for nutritional support. The patient remains nothing by mouth. NG tube is in place. Antibiotic coverage remains a combination of Zosyn and Flagyl. Bowel sounds are absent. The incision over the anterior abdominal wall is dry clean and intact. The patient otherwise is not having any respiratory distress. We evaluated the patient has a right-sided pleural effusion which we are monitoring for the time being. There is a drop in hemoglobin which is expected after surgery. NG tube is in place. Objective - Vital Signs Vital signs: Vital Signs Temp 97.6 F 01/14/19 04:00 Pulse 85 01/14/19 07:00 Resp 10 L 01/14/19 07:00 BP 86/53 01/14/19 07:00 Pulse Ox 99 01/14/19 07:00 Intake & Output 01/13/19 01/14/19 01/14/19 18:59 06:59 18:59 Intake Total 3280 1828 151 Output Total 1490 495 30 Balance 1790 1333 121 Weight 56 kg 60 kg 60 kg Intake: IV 3280 1828 151 Fat Emulsion 20% 250 ml 168 21 In Empty Bag 1 bag @ 21 mls/hr IV DAILY@1800 [facility] Rx#:[id number] Magnesium Sulfate-D5w Pmx 200 1 gm In Dextrose/Water 1 100ml.bag @ 100 mls/hr IVPB Q1H [facility] Rx#: [id number] Mvi, Adult No.4 with Vit 180 360 30 K 10 ml Trace (Conc-1Ml/ Dose) 1 ml In Amino Acid 5%-D15w+Lytes*E* 1,000 ml @ 30 mls/hr IV .Q24H [facility] Rx#:[id number] Sodium Chloride 0.9% 1, 2900 1200 100 000 ml @ 100 mls/hr IV . Q10H [facility] Rx#:[id number] metroNIDAZOLE-NS PMX 500 100 mg In Saline 1 100ml.bag @ 100 mls/hr IVPB Q8H [facility] Rx#:[id number] Output: Urine 1490 495 30 Other: Voiding Method Indwelling Catheter Indwelling Catheter - Exam Gen. appearance weak frail elderly female patient on acute distress BMI is 18.7, the patient is calm and comfortable. She is awake and communicating. 9 acute respiratory distress. NG tube is in place. Head exam was generally normal. There was no scleral icterus or corneal arcus. Mucous membranes were moist. Neck was supple and without jugular venous distension, thyromegaly, or carotid bruits. Carotids were easily palpable bilaterally. There was no adenopathy. The patient has an NG tube in place with greenish amount of material being drained in the suction canister. Lungs sounds are diminished in the right lung base along with some dullness to percussion. Breath sounds are diminished in the right lung base. Breath sounds of normal within the left lung. Cardiac exam revealed the PMI to be normally situated and sized. The rhythm was regular and no extrasystoles were noted during several minutes of auscultation. The first and second heart sounds were normal and physiologic splitting of the second heart sound was noted. There were no murmurs, rubs, clicks, or gallops. Abdomen there is a mid abdominal incision/scar which is dry clean and intact. Bowel sounds are absent. No organomegaly. No direct tenderness or rebound tenderness or guarding at this point in time. Examination of the extremities revealed easily palpable radial, femoral and pedal pulses. There was no cyanosis, clubbing or edema. Examination of the skin revealed no evidence of significant rashes, suspicious appearing nevi or other concerning lesions. Neurologically awake and alert and is no focal neurological deficit. - Labs CBC & Chem 7: 01/14/19 05:28 01/14/19 05:28 Labs: Abnormal Lab Results - Last 24 Hours (Table) 01/14/19 01/14/19 Range/Units 05:28 05:28 RBC 2.44 L (3.80-5.40) m/uL Hgb 8.7 L D (11.4-16.0) gm/dL Hct 27.2 L (34.0-46.0) % MCV 111.4 H (80.0-100.0) fL MCH 35.6 H (25.0-35.0) pg RDW 24.3 H (11.5-15.5) % Lymphocytes # 0.9 L (1.0-4.8) k/uL Macrocytosis Marked A Sodium 134 L (137-145) mmol/L Potassium 3.2 L (3.5-5.1) mmol/L Chloride 110 H (98-107) mmol/L Carbon Dioxide 20 L (22-30) mmol/L BUN 5 L (7-17) mg/dL Creatinine 0.37 L (0.52-1.04) mg/dL Glucose 137 H (74-99) mg/dL Calcium 7.4 L (8.4-10.2) mg/dL Assessment and Plan Plan: 1 small bowel obstruction, failed conservative measures of gastric decompression and bowel rest. The patient has a possibility of most of the bowel/abdominal cavity causing an anatomic bowel obstruction. Also there is a possibility of adhesions causing small bowel obstruction. The patient has an NG tube in place. The patient be taken to the operating room for an laparotomy. The patient also has developed a new pneumatosis intestinalis along with a small bowel obstruction and the follow-up CAT scan of the abdomen showed prominent d ilatation of the jejunum and proximal ileum with the bowel loops reaching up to 4.5 cm in size throughout the left upper quadrant. There is also heterogeneous infiltrating peritoneal soft tissue masses seen in the anterior pararenal space as well as the mesocolon and subperitoneal space of the mesentery and this obviously raises the concern for metastatic neoplasm. On 01/13/2019 the patient is post exploratory laparotomy and small bowel resection 2 involving the mid Jina M and proximal ileum and the patient has undergone primary anastomosis 2 and the patient is postop day #1. The patient is doing extremely well. Bowel sounds are still absent. She has good pain control with epidural Dilaudid. She is hemodynamically stable. She has seen a total of 2 L of IV fluids. NG tube still in place. On 01/14/2019, the patient is postop day #2 following bowel resection and exploratory laparotomy. Doing essentially the same. No bowel activity or flatus yet. NG tube is in place. The patient on TPN for nutritional support. Pain control with fentanyl patch in addition to epidural Dilaudid. 2 metastatic breast cancer, stage IV with questionable metastases to her bowels/abdomen, awaiting pathology results from the small bowel resection 3 right-sided pleural effusion [id number] in size, could be possibly malignant 4 chronic anemia 5 hypo-albuminemia, likely nutritional as the patient has been nothing by mouth for more than text days and her overall oral intake and cardiac intake has been extremely low, currently on TPN. The patient has severe protein calorie malnutrition and her body mass index is down to 17.6 on today's evaluation. 6 macrocytic anemia 7 generalized weakness and the patient is an nothing by mouth status. Plan Continue the supportive care. TPN for nutritional support. Keep the patient nothing by mouth for now. NG tube is still in place. Pain control with epidural in addition to fentanyl patch. IV fluids. Repeat electrolytes. Monitor her progress including the surgical wound. Keep the patient ICU for now. No signs of any significant respiratory distress and keep the same antibiotic coverage.
[2019-01-14] MEDS: ALPRAZolam 0.5 MG TAB PO PRN (17:30)
--- NOTE | 2019-01-14 18:52 | P.PN ---
Subjective Progress Note Date: 01/14/19 (delayed charting seen at 10 am) Principal diagnosis: abdominal pain Patient is a 68-year-old female with a past medical history of stage IV breast cancer with metastases to the abdomen and liver, insomnia, and weight loss. She was recently hospitalized here from a high of 01/05 secondary to small bowel obstruction which was conservatively managed. On presentation to the ER here her vital signs were within normal limits. Laboratory analysis showed a low sodium at 131, and hemoglobin of 10.5 which is chronic for her. She underwent a KUB which showed mild intestinal ileus. She was admitted for further management. She was made nothing by mouth and started on pain medications. Surgery was consulted who recommended conservative management with a clear liquid diet and IV fluids. Oncology was consulted who felt that her pain medicines should be optimized and requested records from her primary oncologist Dr. Clarke out of [facility]. She continued to experience significant abdominal pain, she did not have any bowel movement since admission, and she was unable to tolerate oral intake. On 01/11 she reported increased abdominal pain with decreased responsiveness to Dilaudid. She was started on a fentanyl patch. A CT abdomen and pelvis was ordered an ultimately showed a small bowel obstruction and pneumatosis intestinalis as well as a right-sided pleural effusion. She was seen again by general surgery and was taken to the operating room. She underwent small bowel resection secondary to to chronic small bowel obstructions as well as the small intestine volvulus. She was taken to the ICU. Has NG tube in place. Tolerated procedure well without any immediate postoperative complications. Has epidural for pain control. Pain worsening on 01/14 still without bowel movement. Patient seen and examined at bedside. Worsening abdominal pain today. Also reports worsening arm pain and fluid overload. Denies significant shortness of breath or chest pain. Some nausea, no vomiting, not passing gas, no bowel movement Objective - Vital Signs Vital signs: Vital Signs Temp 97.6 F 01/14/19 04:00 Pulse 85 01/14/19 07:00 Resp 10 L 01/14/19 07:00 BP 86/53 01/14/19 07:00 Pulse Ox 99 01/14/19 07:00 Intake & Output 01/13/19 01/14/19 01/14/19 18:59 06:59 18:59 Intake Total 3280 1828 151 Output Total 1490 495 30 Balance 1790 1333 121 Weight 56 kg 60 kg 60 kg Intake: IV 3280 1828 151 Fat Emulsion 20% 250 ml 168 21 In Empty Bag 1 bag @ 21 mls/hr IV DAILY@1800 [facility] Rx#:[id number] Magnesium Sulfate-D5w Pmx 200 1 gm In Dextrose/Water 1 100ml.bag @ 100 mls/hr IVPB Q1H [facility] Rx#: [id number] Mvi, Adult No.4 with Vit 180 360 30 K 10 ml Trace (Conc-1Ml/ Dose) 1 ml In Amino Acid 5%-D15w+Lytes*E* 1,000 ml @ 30 mls/hr IV .Q24H [facility] Rx#:[id number] Sodium Chloride 0.9% 1, 2900 1200 100 000 ml @ 100 mls/hr IV . Q10H [facility] Rx#:[id number] metroNIDAZOLE-NS PMX 500 100 mg In Saline 1 100ml.bag @ 100 mls/hr IVPB Q8H [facility] Rx#:[id number] Output: Urine 1490 495 30 Other: Voiding Method Indwelling Catheter Indwelling Catheter - Exam General: ill appearing, no distress, appears older than stated age, cachectic, temporal wasting Derm: Erythema of the distal tips of digits of bilateral hands with desquamation of skin consistent with hand and foot syndrome secondary to Xeloda warm, dry Head: atraumatic, normocephalic, symmetric Eyes: EOMI, no lid lag, anicteric sclera Mouth: no lip lesion, mucus membranes dry, NGT in place Cardiovascular: S1S2 reg, no murmur, positive posterior tibial pulse bilateral, Lungs: Decreased bs bilateral, no rhonchi, no rales , no accessory muscle use Abdominal: soft, + tender palpation diffusely, no guarding, no appreciable organomegaly, hypoactive bowel sounds Ext: no gross muscle atrophy,diffuse anasarca, no contractures Neuro: CN II-XI grossly intact, no focal neuro deficits Psych: Alert, oriented, appropriate affect - Labs CBC & Chem 7: 01/14/19 05:28 01/14/19 05:28 Labs: Abnormal Lab Results - Last 24 Hours (Table) 01/14/19 01/14/19 Range/Units 05:28 05:28 RBC 2.44 L (3.80-5.40) m/uL Hgb 8.7 L D (11.4-16.0) gm/dL Hct 27.2 L (34.0-46.0) % MCV 111.4 H (80.0-100.0) fL MCH 35.6 H (25.0-35.0) pg RDW 24.3 H (11.5-15.5) % Lymphocytes # 0.9 L (1.0-4.8) k/uL Macrocytosis Marked A Sodium 134 L (137-145) mmol/L Potassium 3.2 L (3.5-5.1) mmol/L Chloride 110 H (98-107) mmol/L Carbon Dioxide 20 L (22-30) mmol/L BUN 5 L (7-17) mg/dL Creatinine 0.37 L (0.52-1.04) mg/dL Glucose 137 H (74-99) mg/dL Calcium 7.4 L (8.4-10.2) mg/dL Microbiology - Last 24 Hours (Table) 01/13/19 02:50 Urine Culture - Final Urine,Voided Assessment and Plan Assessment: Small bowel obstruction and volvulus s/p resection on 01/12/19 - pain control on epidural, added fentanyl patch back in hope to minimize dilaudid. - NGT in place - TPN per surgery - NPO - Pain control - Antiemetics - zosyn, also on flagyl will discontinue in AM if surgery in agreement Right sided pleural effusion - Pulm recs no plan for drainage - continue to monitor Acidosis with hypercloremia - d/w pharmacy - mild, repeat in AM Anasarca due to hypoalbuminemia - bumex X 1 - needs TPN for nutrition at this point in time. Severe protein calorie malnutrition with cachexia and BMI of 17.6 - on TPN -Continue clear ensure when tolerating PO, needs something without lactose -Dietitian recommendations -Marinol stopped due to NPO but should be restarted when okay for diet Hyponatremia, suspect secondary to low solute intake -Continue with TPN, correcting -Repeat basic metabolic profile in a.m. Macrocytic anemia -RBC folate and B12 within normal limits, iron studies within normal limits -Follow CBC Metastatic breast cancer with metastases to the abdomen -Oncology recommendations - hold xeloda after surgery typically held for 4 weeks will check with oncology DVT prophylaxis: Heparin Discussed with: Patient, nursing Anticipated discharge: 3-[address]: Home with home health vs [facility] A total of 35 minutes was spent on the care of this complex patient more than 50% of the time was spent in counseling and care coordination.
[2019-01-14] MEDS ORDERED: BENZOCAINE/MENTHOL LOZENG 1 EACH LOZENGE MUCOUS MEM PRN (19:30)
[2019-01-14] MEDS: FAT EMULSION 20% 250 ML in EMPTY BAG 1 BAG IV SCH (20:51)
[2019-01-14] MEDS: ZOLPIDEM 5 MG TAB PO PRN (22:09)
[2019-01-14] MEDS: ROPIVACAINE 250 MG, HYDROMORPHONE (PF) 5 MG in SODIUM CHLORIDE 0.9% 200 ML EPIDURAL PRN (23:20)
[2019-01-15] MEDS: PIPERACILLIN-TAZOBACTAM 3.375 GM in SODIUM CHLORIDE 0.9% 100 ML IVPB SCH ×3 (00:18→15:15)
[2019-01-15] MEDS: ONDANSETRON 4 MG/2 ML VIAL IVP SCH ×4 (00:18→17:35)
[2019-01-15] MEDS: HEPARIN SODIUM,PORCINE 5,000 UNIT/ML 1 ML VIAL SQ SCH ×3 (00:18→15:14)
[2019-01-15] MEDS: METOCLOPRAMIDE 5 MG/ML 2 ML VIAL IVP SCH ×4 (03:58→20:22)
[2019-01-15] MEDS: HYDROmorphone 2 MG/ML 1 ML SYRINGE IVP PRN ×2 (04:00→08:27)
[2019-01-15 05:52] LABS: Anisocytosis Moderate; Basophils % (A) 0 %; Eosinophils # (A) 0.5 k/uL (0-0.7); Eosinophils % (A) 7 %; HCT 27.7 % (34.0-46.0); Hypochromasia Slight; Lymphocytes # (A) 1.1 k/uL (1.0-4.8); Lymphocytes % (A) 15 %; MCH 35.4 pg (25.0-35.0); MCHC 32.5 g/dL (31.0-37.0); MCV 108.8 fL (80.0-100.0); Mean Platelet Volume 6.6; Monocytes # (A) 0.4 k/uL (0-1.0); Monocytes % (A) 5 %; Neutrophils # (A) 5.4 k/uL (1.3-7.7); Neutrophils % (A) 73 %; Platelet Count 304 k/uL (150-450); RBC 2.55 m/uL (3.80-5.40); WBC 7.4 k/uL (3.8-10.6)
[2019-01-15 05:55] LABS: Macrocytosis Marked
[2019-01-15] MEDS: SODIUM CHLORIDE 0.9% 1,000 ML IV SCH (05:56)
[2019-01-15] MEDS: ALPRAZolam 0.5 MG TAB PO PRN ×2 (05:56→22:21)
[2019-01-15 06:02] LABS: ALT 14 U/L (9-52); AST 10 U/L (14-36); African American GFR (CKD) >90 (>60 ml/min/1.73 sqM); Albumin 1.6 g/dL (3.5-5.0); Alkaline Phosphatase 30 U/L (38-126); Anion Gap 5 mmol/L; Blood Urea Nitrogen 6 mg/dL (7-17); Calcium 7.3 mg/dL (8.4-10.2); Carbon Dioxide 23 mmol/L (22-30); Chloride 106 mmol/L (98-107); Glucose 124 mg/dL (74-99); Magnesium 1.7 mg/dL (1.6-2.3); Phosphorus 2.9 mg/dL (2.5-4.5); Potassium 2.8 mmol/L (3.5-5.1); Sodium 134 mmol/L (137-145); Total Bilirubin 0.1 mg/dL (0.2-1.3); Total Protein 3.3 g/dL (6.3-8.2)
[2019-01-15] MEDS ORDERED: Potassium Replacement Protocol 1 EACH MISC MISCELLANE PRN (06:18)
[2019-01-15] MEDS: metroNIDAZOLE-NS PMX 500 MG in SALINE 1 100ML.BAG IVPB SCH (06:39)
[2019-01-15] MEDS: POTASSIUM CHLORIDE 10 MEQ in WATER FOR INJECTION 1 100ML.BAG IVPB SCH ×2 (06:44→08:00)
[2019-01-15] MEDS: MVI, ADULT NO.4 WITH VIT K 10 ML, TRACE (CONC-1ML/DOSE) 1 ML, POTASSIUM CHLORIDE 40 MEQ... IV SCH ×4 (08:01)
[2019-01-15] MEDS: PANTOPRAZOLE 40 MG/10 ML VIAL IVP SCH (08:26)
[2019-01-15] MEDS: ASPIRIN 81 MG PO SCH (08:27)
[2019-01-15] MEDS: TRIAMCINOLONE ACET 0.1% OINTMENT 15 GM TUBE TOPICAL SCH ×2 (08:44→20:24)
[2019-01-15] MEDS: MAGNESIUM SULFATE-D5W PMX 1 GM in DEXTROSE/WATER 1 100ML.BAG IVPB SCH ×2 (08:45→10:35)
[2019-01-15] MEDS: POTASSIUM CHLORIDE 20 MEQ in WATER FOR INJECTION 1 100ML.BAG IVPB SCH ×2 (09:26→11:18)
[2019-01-15] MEDS ORDERED: BENZOCAINE SPRAY 1 CAN MUCOUS MEM PRN (09:37)
[2019-01-15] MEDS ORDERED: BUMETANIDE 0.25 MG/ML 4 ML VIAL IVP STA (09:37)
--- NOTE | 2019-01-15 09:50 | P.PN ---
Subjective Progress Note Date: 01/15/19 Principal diagnosis: abdominal pain Patient is a 68-year-old female with a past medical history of stage IV breast cancer with metastases to the abdomen and liver, insomnia, and weight loss. She was recently hospitalized here from a high of 01/05 secondary to small bowel obstruction which was conservatively managed. On presentation to the ER here her vital signs were within normal limits. Laboratory analysis showed a low sodium at 131, and hemoglobin of 10.5 which is chronic for her. She underwent a KUB which showed mild intestinal ileus. She was admitted for f urther management. She was made nothing by mouth and started on pain medications. Surgery was consulted who recommended conservative management with a clear liquid diet and IV fluids. Oncology was consulted who felt that her pain medicines should be optimized and requested records from her primary oncologist Dr. Clarke out of [facility]. She continued to experience significant abdominal pain, she did not have any bowel movement since admission, and she was unable to tolerate oral intake. On 01/11 she reported increased abdominal pain with decreased responsiveness to Dilaudid. She was started on a fentanyl patch. A CT abdomen and pelvis was ordered an ultimately showed a small bowel obstruction and pneumatosis intestinalis as well as a right-sided pleural effusion. She was seen again by general surgery and was taken to the operating room. She underwent small bowel resection secondary to to chronic small bowel obstructions as well as the small intestine volvulus. She was taken to the ICU. Has NG tube in place. Tolerated procedure well without any immediate postoperative complications. Has epidural for pain control. Pain worsening on 01/14 still without bowel movement. On 01/15 pain is more controlled, still no BM,worsening fluid overload Patient seen and examined at bedside. Abdominal pain about the same as yesterday, however he is much less Dilaudid over the last 24 hours. Still having some nausea. Complains of nose and throat pain. No gas or bowel movement yet. No chest pain. Mild shortness of breath. Objective - Vital Signs Vital signs: Vital Signs Temp 97.6 F 01/15/19 08:00 Pulse 79 01/15/19 08:00 Resp 10 L 01/15/19 08:00 BP 101/67 01/15/19 08:00 Pulse Ox 96 01/15/19 08:00 Intake & Output 01/14/19 01/15/19 01/15/19 18:59 06:59 18:59 Intake Total 2581 2699.2 2017 Output Total 3480 1730 280 Balance -899 969.2 1737 Weight 60 kg 63.4 kg Intake: IV 2311 2295 736 Fat Emulsion 20% 250 ml 126 210 21 In Empty Bag 1 bag @ 21 mls/hr IV DAILY@1800 [facility] Rx#:[id number] Magnesium Sulfate-D5w Pmx 200 1 gm In Dextrose/Water 1 100ml.bag @ 100 mls/hr IVPB Q1H [facility] Rx#: [id number] Mvi, Adult No.4 with Vit 180 K 10 ml Trace (Conc-1Ml/ Dose) 1 ml In Amino Acid 5%-D15w+Lytes*E* 1,000 ml @ 30 mls/hr IV .Q24H [facility] Rx#:[id number] Mvi, Adult No.4 with Vit 330 660 165 K 10 ml Trace (Conc-1Ml/ Dose) 1 ml Potassium Chloride 40 meq In Amino Acid 5%-D15w+Lytes*E* 1, 000 ml @ 55 mls/hr IV . [id number] [facility] Rx#:[id number] Piperacillin-Tazobactam 3 175 125 50 .375 gm In Sodium Chloride 0.9% 100 ml @ 25 mls/hr IVPB Q8HR [facility] Rx# :[id number] Potassium Chloride 10 meq 300 In Water For Injection 1 100ml.bag @ 100 mls/hr IVPB Q1HR [facility] Rx#: [id number] Sodium Chloride 0.9% 1, 1100 1200 100 000 ml @ 100 mls/hr IV . Q10H [facility] Rx#:[id number] metroNIDAZOLE-NS PMX 500 200 100 100 mg In Saline 1 100ml.bag @ 100 mls/hr IVPB Q8H [facility] Rx#:[id number] Intake, IV Titration 164.2 1281 Amount Magnesium Sulfate-D5w Pmx 100 1 gm In Dextrose/Water 1 100ml.bag @ 100 mls/hr IVPB Q1H [facility] Rx#: [id number] Mvi, Adult No.4 with Vit 1031 K 10 ml Trace (Conc-1Ml/ Dose) 1 ml Potassium Chloride 40 meq In Amino Acid 5%-D15w+Lytes*E* 1, 000 ml @ 55 mls/hr IV . [id number] [facility] Rx#:[id number] Potassium Chloride 10 meq 100 In Water For Injection 1 100ml.bag @ 100 mls/hr IVPB Q1HR [facility] Rx#: [id number] Potassium Chloride 20 meq 50 In Water For Injection 1 100ml.bag @ 50 mls/hr IVPB Q2H [facility] Rx#: [id number] Ropivacaine 250 mg 164.2 Hydromorphone (Pf) 5 mg In Sodium Chloride 0.9% 200 ml @ Per Protocol EPIDURAL .Q0M [facility] Rx#: [id number] Oral 270 240 Output: Gastric Drainage 1200 500 100 Urine 2280 1230 180 Other: Voiding Method Indwelling Catheter Indwelling Catheter Indwelling Catheter - Exam General: ill appearing, no distress, appears older than stated age, cachectic, temporal wasting Derm: Erythema of the distal tips of digits of bilateral hands with desquamation of skin consistent with hand and foot syndrome secondary to Xeloda warm, dry Head: atraumatic, normocephalic, symmetric Eyes: EOMI, no lid lag, anicteric sclera Mouth: no lip lesion, mucus membranes dry, NGT in place Cardiovascular: S1S2 reg, no murmur, positive posterior tibial pulse bilateral, Lungs: Rhonchi bilateral bases , no accessory muscle use Abdominal: soft, + tender palpation diffusely, no guarding, no appreciable organomegaly, hypoactive bowel sounds, midline dressing was soaked through and place serosanguineous Ext: no gross muscle atrophy,diffuse anasarca, no contractures Neuro: CN II-XI grossly intact, no focal neuro deficits Psych: Alert, oriented, appropriate affect - Labs CBC & Chem 7: 01/15/19 05:30 01/15/19 05:30 Labs: Abnormal Lab Results - Last 24 Hours (Table) 01/15/19 01/15/19 Range/Units 05:30 05:30 RBC 2.55 L (3.80-5.40) m/uL Hgb 9.0 L (11.4-16.0) gm/dL Hct 27.7 L (34.0-46.0) % MCV 108.8 H (80.0-100.0) fL MCH 35.4 H (25.0-35.0) pg RDW 24.0 H (11.5-15.5) % Macrocytosis Marked A Sodium 134 L (137-145) mmol/L Potassium 2.8 L (3.5-5.1) mmol/L BUN 6 L (7-17) mg/dL Creatinine 0.31 L (0.52-1.04) mg/dL Glucose 124 H (74-99) mg/dL Calcium 7.3 L (8.4-10.2) mg/dL Total Bilirubin 0.1 L (0.2-1.3) mg/dL AST 10 L (14-36) U/L Alkaline Phosphatase 30 L (38-126) U/L Total Protein 3.3 L (6.3-8.2) g/dL Albumin 1.6 L (3.5-5.0) g/dL Microbiology - Last 24 Hours (Table) 01/13/19 02:50 Urine Culture - Final Urine,Voided Assessment and Plan Assessment: Small bowel obstruction and volvulus s/p resection on 01/12/19 - pain control on epidural, continue with sentinel patch, decrease IV Dilaudid 1 mg every 3 hours and hope to stabilize blood pressures we can diurese patient more successfully - NGT in place - TPN per surgery - NPO - Pain control - Antiemetics - zosyn, also on flagyl will discontinue Right sided pleural effusion - Pulm recs no plan for drainage - continue to monitor Anasarca due to hypoalbuminemia - bumex X 1 again today, will do a second dose this afternoon if BP stable - needs TPN for nutrition at this point in time. Hypokalemia, hypomagnesemia - recheck and replace Severe protein calorie malnutrition with cachexia and BMI of 17.6 - on TPN - also check BMP, MG, Phos, TG and lipase in AM -Continue clear ensure when tolerating PO, needs something without lactose -Dietitian recommendations -Marinol stopped due to NPO but should be restarted when okay for diet Hyponatremia, suspect secondary to low solute intake -Continue with TPN, correcting -Repeat basic metabolic profile in a.m. Macrocytic anemia -RBC folate and B12 within normal limits, iron studies within normal limits -Follow CBC Metastatic breast cancer with metastases to the abdomen -Oncology recommendations - hold xeloda after surgery typically held for 4 weeks will check with oncology Hyperchloremic metabolic acidosis, resolved DVT prophylaxis: Heparin Discussed with: Patient, nursing Anticipated discharge: 3-[address]: Home with home health vs [facility] A total of 35 minutes was spent on the care of this complex patient more than 50% of the time was spent in counseling and care coordination.
[2019-01-15] MEDS: SODIUM FERRIC GLUCONAT-SUCROSE 125 MG in SODIUM CHLORIDE 0.9% 100 ML IVPB SCH (11:17)
[2019-01-15] MEDS: 0.9% NACL WITH KCL 40 MEQ/L 1,000 ML IV SCH (11:19)
--- NOTE | 2019-01-15 11:38 | P.PN ---
Subjective Progress Note Date: 01/15/19 This is a 68-year-old female patient with metastatic breast cancer. The patient is in the hospital because of a bowel obstruction. The patient hasn't been able to eat for more than 10 days. She's been hospitalized for almost 6 days where she was unable to eat and she hasn't been able to pass gas or any bowel movement. NG tube is in place and output remains considerably high. CAT scan of the abdomen and pelvis was ordered and it showed small bowel obstruction and there is concern for pneumatosis intestinalis. It was also noted that the patient has a small to moderate-sized right-sided pleural effusion. In terms of her breast cancer, the patient was diagnosed several years ago and she has r eceived most of her care through [facility]. She underwent a initial lumpectomy and radiation therapy. Following that she received a total of 5 years of Arimidex treatment. Around 2 years ago, her cancer recurred and was metastatic and she was found on systemic chemotherapy with doxorubicin and Cytoxan and the patient was subsequently placed on oral Xeloda. The patient also has had several abdominal surgeries. She also reports a previous bowel obstruction. This point in time the patient is awake and alert. She is a bit weak. She has been able to eat and she is obviously lacking behind on her nutrition. Her albumin level has been down to 2.0. Her CA 2729 level was up to 71 with a CVA 15 3 level of 629. Her total serum iron has been also low at 23. Her current hemoglobin is at 8.7 her white cell count of 4.5. The patient will be taken to the operating room today for an expert laparotomy and lysis of adhesions. There is history of metastases to her abdomen and the metastatic disease could have been also contributing to her bowel obstruction. As far as the pleural effusion, this has not been been drained in the past. The lung bases based on the CAT scan of the abdomen shows no evidence of any metastatic or other poor disease or another if his or lesions. On 01/13/2019 I'm seeing this patient in the follow-up. The patient is in the intensive care unit. The patient has undergone her surgery. Specifically, the patient underwent exploratory laparotomy, small bowel resection, mid jejunal resection and proximal ileal resection with primary anastomosis. There was reduction of a small bowel volvulus and internal hernia. Surgery went well and the patient was brought into the intensive care unit following that. She received a total of 2 L of IV fluids postop. NG tube still in place. Bowel sounds are quite hypoactive. Surgical site is dry clean and intact. She is awake and alert. She is not having any respiratory distress. No cough sputum production. No issues with pain and the patient has a epidural Dilaudid in place for pain control. The hemoglobin today is at 10.4 with a white cell count of 6.6. Serum bicarb is 18 with a creatinine of 0.48. On 01/14/2019 I'm seeing this patient for a follow-up. The patient is looking assess the same compared to yesterday. She is still having abdominal pain. Epidural is running at 4 mg an hour Dilaudid. No significant hypotension. Additional pain control was being given by a fentanyl patch a total of 37.5 g subcu every 72 hours. The patient is on TPN for nutritional support. The patient remains nothing by mouth. NG tube is in place. Antibiotic coverage remains a combination of Zosyn and Flagyl. Bowel sounds are absent. The incision over the anterior abdominal wall is dry clean and intact. The patient otherwise is not having any respiratory distress. We evaluated the patient has a right-sided pleural effusion which we are monitoring for the time being. There is a drop in hemoglobin which is expected after surgery. NG tube is in place. On 01/15/2019 the patient is still recovering from surgery. She is postop day #3. She does have some limited bowel sounds. No significant activity. Output from the NG tube has been 7 50 mL over the past 24 hours. The patient is otherwise doing well. She is awake and alert pH is complaining of some increased edema both in the upper and lower extremities. She is on TPN for nutritional support. She has on epidural Dilaudid for pain control. She is on IV antibiotics with Zosyn and Flagyl. She is using incentive spirometer. NG tube is in place. No other issues for now. Her condition essentially the same compared to yesterday. Electrodes are being replaced regularly. Objective - Vital Signs Vital signs: Vital Signs Temp 97.6 F 01/15/19 08:00 Pulse 75 01/15/19 11:00 Resp 14 01/15/19 11:00 BP 86/65 01/15/19 11:00 Pulse Ox 100 01/15/19 11:00 Intake & Output 01/14/19 01/15/19 01/15/19 18:59 06:59 18:59 Intake Total 2581 2699.2 2602 Output Total 3480 1730 745 Balance -899 969.2 1857 Weight 60 kg 63.4 kg Intake: IV 2311 2295 996 Fat Emulsion 20% 250 ml 126 210 21 In Empty Bag 1 bag @ 21 mls/hr IV DAILY@1800 [facility] Rx#:[id number] Magnesium Sulfate-D5w Pmx 200 1 gm In Dextrose/Water 1 100ml.bag @ 100 mls/hr IVPB Q1H [facility] Rx#: [id number] Mvi, Adult No.4 with Vit 180 K 10 ml Trace (Conc-1Ml/ Dose) 1 ml In Amino Acid 5%-D15w+Lytes*E* 1,000 ml @ 30 mls/hr IV .Q24H [facility] Rx#:[id number] Mvi, Adult No.4 with Vit 330 660 275 K 10 ml Trace (Conc-1Ml/ Dose) 1 ml Potassium Chloride 40 meq In Amino Acid 5%-D15w+Lytes*E* 1, 000 ml @ 55 mls/hr IV . [id number] [facility] Rx#:[id number] Piperacillin-Tazobactam 3 175 125 100 .375 gm In Sodium Chloride 0.9% 100 ml @ 25 mls/hr IVPB Q8HR [facility] Rx# :[id number] Potassium Chloride 10 meq 300 In Water For Injection 1 100ml.bag @ 100 mls/hr IVPB Q1HR [facility] Rx#: [id number] Sodium Chloride 0.9% 1, 1100 1200 200 000 ml @ 100 mls/hr IV . Q10H [facility] Rx#:[id number] metroNIDAZOLE-NS PMX 500 200 100 100 mg In Saline 1 100ml.bag @ 100 mls/hr IVPB Q8H [facility] Rx#:[id number] Intake, IV Titration 164.2 1606 Amount 0.9% NaCl with KCl 40 Meq 75 /l 1,000 ml @ 75 mls/hr IV .[id number] [facility] Rx#: [id number] Magnesium Sulfate-D5w Pmx 200 1 gm In Dextrose/Water 1 100ml.bag @ 100 mls/hr IVPB Q1H [facility] Rx#: [id number] Mvi, Adult No.4 with Vit 1031 K 10 ml Trace (Conc-1Ml/ Dose) 1 ml Potassium Chloride 40 meq In Amino Acid 5%-D15w+Lytes*E* 1, 000 ml @ 55 mls/hr IV . [id number] [facility] Rx#:[id number] Potassium Chloride 10 meq 100 In Water For Injection 1 100ml.bag @ 100 mls/hr IVPB Q1HR [facility] Rx#: [id number] Potassium Chloride 20 meq 100 In Water For Injection 1 100ml.bag @ 50 mls/hr IVPB Q2H [facility] Rx#: [id number] Ropivacaine 250 mg 164.2 Hydromorphone (Pf) 5 mg In Sodium Chloride 0.9% 200 ml @ Per Protocol EPIDURAL .Q0M [facility] Rx#: [id number] Sodium Ferric Gluconat- 100 Sucrose 125 mg In Sodium Chloride 0.9% 100 ml @ 100 mls/hr IVPB DAILY [facility] Rx#:[id number] Oral 270 240 Output: Gastric Drainage 1200 500 100 Urine 2280 1230 645 Other: Voiding Method Indwelling Catheter Indwelling Catheter Indwelling Catheter - Exam Gen. appearance weak frail elderly female patient on acute distress BMI is 18.7, the patient is calm and comfortable. She is awake and communicating. 9 acute respiratory distress. NG tube is in place. Head exam was generally normal. There was no scleral icterus or corneal arcus. Mucous membranes were moist. Neck was supple and without jugular venous distension, thyromegaly, or carotid bruits. Carotids were easily palpable bilaterally. There was no adenopathy. The patient has an NG tube in place with greenish amount of material being drained in the suction canister. Lungs sounds are diminished in the right lung base along with some dullness to percussion. Breath sounds are diminished in the right lung base. Breath sounds of normal within the left lung. Cardiac exam revealed the PMI to be normally situated and sized. The rhythm was regular and no extrasystoles were noted during several minutes of auscultation. The first and second heart sounds were normal and physiologic splitting of the second heart sound was noted. There were no murmurs, rubs, clicks, or gallops. Abdomen there is a mid abdominal incision/scar which is dry clean and intact. Bowel sounds are absent. No organomegaly. No direct tenderness or rebound tenderness or guarding at this point in time. Examination of the extremities revealed easily palpable radial, femoral and pedal pulses. There was no cyanosis, clubbing or edema. Examination of the skin revealed no evidence of significant rashes, suspicious appearing nevi or other concerning lesions. Neurologically awake and alert and is no focal neurological deficit. - Labs CBC & Chem 7: 01/15/19 05:30 01/15/19 05:30 Labs: Abnormal Lab Results - Last 24 Hours (Table) 01/15/19 01/15/19 Range/Units 05:30 05:30 RBC 2.55 L (3.80-5.40) m/uL Hgb 9.0 L (11.4-16.0) gm/dL Hct 27.7 L (34.0-46.0) % MCV 108.8 H (80.0-100.0) fL MCH 35.4 H (25.0-35.0) pg RDW 24.0 H (11.5-15.5) % Macrocytosis Marked A Sodium 134 L (137-145) mmol/L Potassium 2.8 L (3.5-5.1) mmol/L BUN 6 L (7-17) mg/dL Creatinine 0.31 L (0.52-1.04) mg/dL Glucose 124 H (74-99) mg/dL Calcium 7.3 L (8.4-10.2) mg/dL Total Bilirubin 0.1 L (0.2-1.3) mg/dL AST 10 L (14-36) U/L Alkaline Phosphatase 30 L (38-126) U/L Total Protein 3.3 L (6.3-8.2) g/dL Albumin 1.6 L (3.5-5.0) g/dL Microbiology - Last 24 Hours (Table) 01/13/19 02:50 Urine Culture - Final Urine,Voided Assessment and Plan Plan: 1 small bowel obstruction, failed conservative measures of gastric decompression and bowel rest. The patient has a possibility of most of the bowel/abdominal cavity causing an anatomic bowel obstruction. Also there is a possibility of adhesions causing small bowel obstruction. The patient has an NG tube in place. The patient be taken to the operating room for an laparotomy. The patient also has developed a new pneumatosis intestinalis along with a small bowel obstr uction and the follow-up CAT scan of the abdomen showed prominent dilatation of the jejunum and proximal ileum with the bowel loops reaching up to 4.5 cm in size throughout the left upper quadrant. There is also heterogeneous infiltrating peritoneal soft tissue masses seen in the anterior pararenal space as well as the mesocolon and subperitoneal space of the mesentery and this obviously raises the concern for metastatic neoplasm. On 01/13/2019 the patient is post exploratory laparotomy and small bowel resection 2 involving the mid Jina M and proximal ileum and the patient has undergone primary anastomosis 2 and the patient is postop day #1. The patient is doing extremely well. Bowel sounds are still absent. She has good pain control with epidural Dilaudid. She is hemodynamically stable. She has seen a total of 2 L of IV fluids. NG tube still in place. On 01/14/2019, the patient is postop day #2 following bowel resection and exploratory laparotomy. Doing essentially the same. No bowel activity or flatus yet. NG tube is in place. The patient on TPN for nutritional support. Pain control with fentanyl patch in addition to epidural Dilaudid. On 01/15/2019 the patient is postop day #3. NG tube is in place. Output from the NG tube is considerably high. She is still having no bowel movement with activity although there is some sluggish bowel sounds today. She is on TPN for additional support. She is nothing by mouth. She is receiving antiemetics. She is on IV Zosyn. She is hemodynamically stable. 2 metastatic breast cancer, stage IV with questionable metastases to her bowels/abdomen, awaiting pathology results from the small bowel resection 3 right-sided pleural effusion [id number] in size, could be possibly malignant 4 chronic anemia 5 hypo-albuminemia, likely nutritional as the patient has been nothing by mouth for more than text days and her overall oral intake and cardiac intake has been extremely low, currently on TPN. The patient has severe protein calorie malnutrition and her body mass index is down to 17.6 on today's evaluation. 6 macrocytic anemia 7 generalized weakness and the patient is an nothing by mouth status. Plan Continue the supportive care. TPN for nutritional support. Keep the patient nothing by mouth for now. NG tube is still in place. Pain control with epidural in addition to fentanyl patch. IV fluids. Repeat electrolytes. Monitor her progress including the surgical wound. Keep the patient ICU for now. No signs of any significant respiratory distress and keep the same antibiotic coverage. No major change compared to yesterday's evaluation. Oral Xeloda was placed on hold
[2019-01-15] MEDS: HYDROmorphone 1 MG/ML 1 ML SYRINGE IVP PRN ×3 (11:59→20:50)
--- NOTE | 2019-01-15 13:02 | P.PN ---
Subjective Progress Note Date: 01/15/19 CHIEF COMPLAINT: Small bowel obstruction HISTORY OF PRESENT ILLNESS: The patient is a 68-year-old female status post small bowel resection 2 with lysis of adhesion, 01/12/19. She is postoperative day 3. She is doing well. She had moderate serous drainage from her incisions. No reports of abdominal pain. ROS: No reports of nausea and vomiting. She has a NG tube with bilious output. No bowel movements. No fevers or chills. No new chest pain. No productive sputum PHYSICAL EXAM: VITAL SIGNS: Reviewed CONSTITUTIONAL: Well developed and in no acute distress. EYES: Conjuctivae without sclera icterus. Extraocular movements grossly intact. HEAD, EARS, NOSE, THROAT: Moist buccal mucosa. Head is atraumatic, normocephalic. Hears conversational speech. No nasal drainage. NG bilious output. NECK: Supple. No thyroidomegaly. RESPIRATORY: Non-labored respirations and equal bilateral excursions. CARDIOVASCULAR: Palpable 2+ radial pulses. Regular rate. Regular rhythm. ABDOMEN: Incisions clean and intact. Soft. No peritonitis. No infection. MUSCULOSKELETAL: No gross deformity of the lower extremities noted. No clubbing. No cyanosis. SKIN: Good skin turgor. Well perfused. NEUROLOGIC: Cranial nerves I through XII grossly intact. No focal or lateralizing signs. PSYCH: Appropriate affect. Alert and oriented to person, place and time. CLINCAL LABS: White blood cell count normal. Iron panel is low. ASSESSMENT: 1. Small bowel obstruction 2. History of abnormal computed tomography scan with pneumatosis intestinalis 3. Metastatic breast cancer to her abdomen 4. Status post small bowel resection PLAN: 1. At bedside, I placed PREVENA universal dressing system. 2. I personally removed her NG tube at bedside. 3. Continue ice chips and popsicles 4. PREVENA dressing to wall suction. May clamp with ambulation. 5. Continue with TPN 6. Iron infusion for iron deficiency anemia Objective - Vital Signs Vital signs: Vital Signs Temp 97.6 F 01/15/19 12:00 Pulse 87 01/15/19 12:00 Resp 19 01/15/19 12:00 BP 97/67 01/15/19 12:00 Pulse Ox 95 01/15/19 12:00 Intake & Output 08/16/19 08/17/19 08/17/19 18:59 06:59 18:59 Intake Total 2581 2699.2 2832 Output Total 3480 1730 970 Balance -899 969.2 1862 Weight 60 kg 63.4 kg Intake: IV 2311 2295 1051 Fat Emulsion 20% 250 ml 126 210 21 In Empty Bag 1 bag @ 21 mls/hr IV DAILY@1800 [facility] Rx#:[id number] Magnesium Sulfate-D5w Pmx 200 1 gm In Dextrose/Water 1 100ml.bag @ 100 mls/hr IVPB Q1H [facility] Rx#: [id number] Mvi, Adult No.4 with Vit 180 K 10 ml Trace (Conc-1Ml/ Dose) 1 ml In Amino Acid 5%-D15w+Lytes*E* 1,000 ml @ 30 mls/hr IV .Q24H [facility] Rx#:[id number] Mvi, Adult No.4 with Vit 330 660 330 K 10 ml Trace (Conc-1Ml/ Dose) 1 ml Potassium Chloride 40 meq In Amino Acid 5%-D15w+Lytes*E* 1, 000 ml @ 55 mls/hr IV . [id number] [facility] Rx#:[id number] Piperacillin-Tazobactam 3 175 125 100 .375 gm In Sodium Chloride 0.9% 100 ml @ 25 mls/hr IVPB Q8HR [facility] Rx# :[id number] Potassium Chloride 10 meq 300 In Water For Injection 1 100ml.bag @ 100 mls/hr IVPB Q1HR [facility] Rx#: [id number] Sodium Chloride 0.9% 1, 1100 1200 200 000 ml @ 100 mls/hr IV . Q10H [facility] Rx#:[id number] metroNIDAZOLE-NS PMX 500 200 100 100 mg In Saline 1 100ml.bag @ 100 mls/hr IVPB Q8H [facility] Rx#:[id number] Intake, IV Titration 164.2 1781 Amount 0.9% NaCl with KCl 40 Meq 150 /l 1,000 ml @ 75 mls/hr IV .[id number] [facility] Rx#: [id number] Magnesium Sulfate-D5w Pmx 200 1 gm In Dextrose/Water 1 100ml.bag @ 100 mls/hr IVPB Q1H [facility] Rx#: [id number] Mvi, Adult No.4 with Vit 1031 K 10 ml Trace (Conc-1Ml/ Dose) 1 ml Potassium Chloride 40 meq In Amino Acid 5%-D15w+Lytes*E* 1, 000 ml @ 55 mls/hr IV . [id number] [facility] Rx#:[id number] Potassium Chloride 10 meq 100 In Water For Injection 1 100ml.bag @ 100 mls/hr IVPB Q1HR [facility] Rx#: [id number] Potassium Chloride 20 meq 200 In Water For Injection 1 100ml.bag @ 50 mls/hr IVPB Q2H [facility] Rx#: [id number] Ropivacaine 250 mg 164.2 Hydromorphone (Pf) 5 mg In Sodium Chloride 0.9% 200 ml @ Per Protocol EPIDURAL .Q0M [facility]N Rx#: [id number] Sodium Ferric Gluconat- 100 Sucrose 125 mg In Sodium Chloride 0.9% 100 ml @ 100 mls/hr IVPB DAILY [facility] Rx#:[id number] Oral 270 240 Output: Gastric Drainage 1200 500 100 Urine 2280 1230 870 Other: Voiding Method Indwelling Catheter Indwelling Catheter Indwelling Catheter - Labs CBC & Chem 7: 01/15/19 05:30 01/15/19 14:15 Labs: Abnormal Lab Results - Last 24 Hours (Table) 01/15/19 01/15/19 Range/Units 05:30 05:30 RBC 2.55 L (3.80-5.40) m/uL Hgb 9.0 L (11.4-16.0) gm/dL Hct 27.7 L (34.0-46.0) % MCV 108.8 H (80.0-100.0) fL MCH 35.4 H (25.0-35.0) pg RDW 24.0 H (11.5-15.5) % Macrocytosis Marked A Sodium 134 L (137-145) mmol/L Potassium 2.8 L (3.5-5.1) mmol/L BUN 6 L (7-17) mg/dL Creatinine 0.31 L (0.52-1.04) mg/dL Glucose 124 H (74-99) mg/dL Calcium 7.3 L (8.4-10.2) mg/dL Total Bilirubin 0.1 L (0.2-1.3) mg/dL AST 10 L (14-36) U/L Alkaline Phosphatase 30 L (38-126) U/L Total Protein 3.3 L (6.3-8.2) g/dL Albumin 1.6 L (3.5-5.0) g/dL Microbiology - Last 24 Hours (Table) 01/13/19 02:50 Urine Culture - Final Urine,Voided Assessment and Plan (1) Abdominal pain Current Visit: Yes Status: Chronic Priority: High Code(s): R10.9 - UNSPECIFIED ABDOMINAL PAIN SNOMED Code(s): 30942461 (2) Dehydration Current Visit: Yes Status: Acute Code(s): E86.0 - DEHYDRATION SNOMED Code( s): 16052582 (3) Intractable vomiting Current Visit: Yes Status: Acute Code(s): R11.10 - VOMITING, UNSPECIFIED SNOMED Code(s): 599840796 (4) Metastatic breast cancer Current Visit: Yes Status: Chronic Priority: High Code(s): C50.919 - MALIG NANT NEOPLASM OF UNSP SITE OF UNSPECIFIED FEMALE BREAST SNOMED Code(s): 3 49708906 (5) Small bowel obstruction Current Visit: No Status: Acute Code(s): K56.609 - UNSP INTESTNL OBST, UNSP TO PARTIAL VERSUS COMPLETE OBST SNOMED Code(s): 958935428 (6) Iron deficiency anemia Current Visit: Yes Status: Acute Code(s): D50.9 - IRON DEFICIENCY ANEMIA, UNSPECIFIED SNOMED Code(s): 48099728 (7) Abnormal abdominal CT scan Current Visit: Yes Status: Acute Code(s): R93.5 - ABN FINDINGS ON DX IMAGING OF ABD REGIONS, INC RETROPERITON SNOMED Code(s): 03346783651790656 (8) S/P small bowel resection Current Visit: Yes Status: Acute Code(s): Z90.49 - ACQUIRED ABSENCE OF OTHER SPECIFIED PARTS OF DIGESTIVE TRACT SNOMED Code(s): 403426068501532
[2019-01-15] MEDS: FAT EMULSION 20% 250 ML in EMPTY BAG 1 BAG IV SCH (17:54)
--- NOTE | 2019-01-15 19:29 | P.PN ---
Progress Note - Text Progress Note Date: 01/15/19 Postoperative day #3 status post exp laparotomy/epidural catheter placed for postoperative analgesia, patient doing well epidural site okay, patient currently on combination of epidural infusion solution of Ropivacaine 0.0625% and Dilaudid 20 g per mL the infusion rate at 4 ml per hour , patient had no motor deficit epidural site okay , vital signs stable ,VAS 3 /10 , Assessment and plan= post operative day # 3 patient doing well ,pain well controlled , there is no anesthesia related complications
[2019-01-15] MEDS ORDERED: BUMETANIDE 0.25 MG/ML 4 ML VIAL IVP ONE (20:00)
[2019-01-15] MEDS: ZOLPIDEM 5 MG TAB PO PRN (22:21)
[2019-01-16] MEDS: PIPERACILLIN-TAZOBACTAM 3.375 GM in SODIUM CHLORIDE 0.9% 100 ML IVPB SCH ×3 (00:22→15:38)
[2019-01-16] MEDS: HYDROmorphone 1 MG/ML 1 ML SYRINGE IVP PRN ×5 (00:22→22:06)
[2019-01-16] MEDS: ONDANSETRON 4 MG/2 ML VIAL IVP SCH ×4 (00:22→17:48)
[2019-01-16] MEDS: HEPARIN SODIUM,PORCINE 5,000 UNIT/ML 1 ML VIAL SQ SCH ×3 (00:22→15:38)
[2019-01-16] MEDS: 0.9% NACL WITH KCL 40 MEQ/L 1,000 ML IV SCH (02:42)
[2019-01-16] MEDS: MVI, ADULT NO.4 WITH VIT K 10 ML, TRACE (CONC-1ML/DOSE) 1 ML, POTASSIUM CHLORIDE 40 MEQ... IV SCH ×8 (02:57→19:11)
[2019-01-16] MEDS: METOCLOPRAMIDE 5 MG/ML 2 ML VIAL IVP SCH ×4 (03:40→20:17)
[2019-01-16 05:00] LABS: Anisocytosis Marked; HCT 25.8 % (34.0-46.0); HGB 8.7 gm/dL (11.4-16.0); MCH 36.4 pg (25.0-35.0); MCHC 33.7 g/dL (31.0-37.0); MCV 107.9 fL (80.0-100.0); Macrocytosis Marked; Mean Platelet Volume 7.1; Platelet Count 309 k/uL (150-450); RBC 2.39 m/uL (3.80-5.40); RDW 24.1 % (11.5-15.5); WBC 7.9 k/uL (3.8-10.6)
[2019-01-16 05:29] LABS: African American GFR (CKD) >90 (>60 ml/min/1.73 sqM); Anion Gap 2 mmol/L; Blood Urea Nitrogen 8 mg/dL (7-17); Calcium 7.4 mg/dL (8.4-10.2); Carbon Dioxide 27 mmol/L (22-30); Chloride 104 mmol/L (98-107); Glucose 119 mg/dL (74-99); Magnesium 1.7 mg/dL (1.6-2.3); Phosphorus 2.8 mg/dL (2.5-4.5); Potassium 3.9 mmol/L (3.5-5.1); Sodium 133 mmol/L (137-145); Triglycerides 106 mg/dL (<150)
[2019-01-16] MEDS: MAGNESIUM SULFATE-D5W PMX 1 GM in DEXTROSE/WATER 1 100ML.BAG IVPB SCH ×2 (05:54→08:02)
[2019-01-16] MEDS: POTASSIUM CHLORIDE 10 MEQ in WATER FOR INJECTION 1 100ML.BAG IVPB SCH ×2 (06:02→08:02)
[2019-01-16] MEDS: PANTOPRAZOLE 40 MG/10 ML VIAL IVP SCH (08:10)
[2019-01-16] MEDS: ASPIRIN 81 MG PO SCH (08:11)
--- NOTE | 2019-01-16 08:48 | P.PN ---
Subjective Progress Note Date: 01/16/19 Principal diagnosis: abdominal pain Patient is a 68-year-old female with a past medical history of stage IV breast cancer with metastases to the abdomen and liver, insomnia, and weight loss. She was recently hospitalized here from a high of 01/05 secondary to small bowel obstruction which was conservatively managed. On presentation to the ER here her vital signs were within normal limits. Laboratory analysis showed a low sodium at 131, and hemoglobin of 10.5 which is chronic for her. She underwent a KUB which showed mild intestinal ileus. She was admitted for f urther management. She was made nothing by mouth and started on pain medications. Surgery was consulted who recommended conservative management with a clear liquid diet and IV fluids. Oncology was consulted who felt that her pain medicines should be optimized and requested records from her primary oncologist Dr. Clarke out of [facility]. She continued to experience significant abdominal pain, she did not have any bowel movement since admission, and she was unable to tolerate oral intake. On 01/11 she reported increased abdominal pain with decreased responsiveness to Dilaudid. She was started on a fentanyl patch. A CT abdomen and pelvis was ordered an ultimately showed a small bowel obstruction and pneumatosis intestinalis as well as a right-sided pleural effusion. She was seen again by general surgery and was taken to the operating room. She underwent small bowel resection secondary to to chronic small bowel obstructions as well as the small intestine volvulus. She was taken to the ICU. Has NG tube in place. Tolerated procedure well without any immediate postoperative complications. Has epidural for pain control. Pain worsening on 01/14 still without bowel movement. On 01/15 pain is more controlled, still no BM,worsening fluid overload and given one dose of bumex again. NGT removed. Patient seen and examined at bedside. No SOB, No chest pain, no nausea, abdominal pain controlled on 1mg of dilaudid, still no gas, no BM, felling tired and weak Objective - Vital Signs Vital signs: Vital Signs Temp 97.6 F 01/16/19 08:00 Pulse 80 01/16/19 08:00 Resp 13 01/16/19 08:00 BP 77/47 01/16/19 08:00 Pulse Ox 99 01/16/19 08:00 Intake & Output 08/17/19 08/18/19 08/18/19 18:59 06:59 18:59 Intake Total 3733 3383 581 Output Total 2520 1735 125 Balance 1213 1648 456 Weight 61.5 kg Intake: IV 1502 1432 371 0.9% NaCl with KCl 40 Meq 825 150 /l 1,000 ml @ 75 mls/hr IV .[id number] [facility] Rx#: [id number] Fat Emulsion 20% 250 ml 42 252 21 In Empty Bag 1 bag @ 21 mls/hr IV DAILY@1800 [facility] Rx#:[id number] Magnesium Sulfate-D5w Pmx 100 100 1 gm In Dextrose/Water 1 100ml.bag @ 100 mls/hr IVPB Q1H [facility] Rx#: [id number] Mvi, Adult No.4 with Vit 660 55 K 10 ml Trace (Conc-1Ml/ Dose) 1 ml Potassium Chloride 40 meq In Amino Acid 5%-D15w+Lytes*E* 1, 000 ml @ 55 mls/hr IV . [id number] [facility] Rx#:[id number] Piperacillin-Tazobactam 3 200 100 100 .375 gm In Sodium Chloride 0.9% 100 ml @ 25 mls/hr IVPB Q8HR [facility] Rx# :[id number] Potassium Chloride 10 meq 300 100 In Water For Injection 1 100ml.bag @ 100 mls/hr IVPB Q1HR [facility] Rx#: [id number] Sodium Chloride 0.9% 1, 200 000 ml @ 100 mls/hr IV . Q10H [facility] Rx#:[id number] metroNIDAZOLE-NS PMX 500 100 mg In Saline 1 100ml.bag @ 100 mls/hr IVPB Q8H [facility] Rx#:[id number] Intake, IV Titration 2231 1106 100 Amount 0.9% NaCl with KCl 40 Meq 600 75 /l 1,000 ml @ 75 mls/hr IV .[id number] [facility] Rx#: [id number] Magnesium Sulfate-D5w Pmx 200 1 gm In Dextrose/Water 1 100ml.bag @ 100 mls/hr IVPB Q1H [facility] Rx#: [id number] Mvi, Adult No.4 with Vit 1031 1031 K 10 ml Trace (Conc-1Ml/ Dose) 1 ml Potassium Chloride 40 meq In Amino Acid 5%-D15w+Lytes*E* 1, 000 ml @ 55 mls/hr IV . [id number] [facility] Rx#:[id number] Potassium Chloride 10 meq 100 In Water For Injection 1 100ml.bag @ 100 mls/hr IVPB Q1H [facility] Rx#: [id number] Potassium Chloride 10 meq 100 In Water For Injection 1 100ml.bag @ 100 mls/hr IVPB Q1HR [facility] Rx#: [id number] Potassium Chloride 20 meq 200 In Water For Injection 1 100ml.bag @ 50 mls/hr IVPB Q2H [facility] Rx#: [id number] Sodium Ferric Gluconat- 100 Sucrose 125 mg In Sodium Chloride 0.9% 100 ml @ 100 mls/hr IVPB DAILY [facility] Rx#:[id number] Oral 240 TPN/PPN 605 110 Mvi, Adult No.4 with Vit 605 110 K 10 ml Trace (Conc-1Ml/ Dose) 1 ml Potassium Chloride 40 meq In Amino Acid 5%-D15w+Lytes*E* 1, 000 ml @ 55 mls/hr IV . [id number] [facility] Rx#:[id number] Output: Gastric Drainage 200 Urine 2320 1735 125 Other: Voiding Method Indwelling Catheter Indwelling Catheter - Exam General: ill appearing, no distress, appears older than stated age, cachectic, temporal wasting Derm: Erythema of the distal tips of digits of bilateral hands with desquamation of skin consistent with hand and foot syndrome secondary to Xeloda warm, dry Head: atraumatic, normocephalic, symmetric Eyes: EOMI, no lid lag, anicteric sclera Mouth: no lip lesion, mucus membranes dry, NGT in place Cardiovascular: S1S2 reg, no murmur, positive posterior tibial pulse bilateral, Lungs: Rhonchi bilateral bases , no accessory muscle use Abdominal: soft, + tender palpation diffusely, no guarding, no appreciable organomegaly, hypoactive bowel sounds, midline dressing was soaked through and place serosanguineous Ext: no gross muscle atrophy,diffuse anasarca, no contractures Neuro: CN II-XI grossly intact, no focal neuro deficits Psych: Alert, oriented, flat affect - Labs CBC & Chem 7: 01/16/19 04:50 01/16/19 04:50 Labs: Abnormal Lab Results - Last 24 Hours (Table) 01/16/19 01/16/19 Range/Units 04:50 04:50 RBC 2.39 L (3.80-5.40) m/uL Hgb 8.7 L (11.4-16.0) gm/dL Hct 25.8 L (34.0-46.0) % MCV 107.9 H (80.0-100.0) fL MCH 36.4 H (25.0-35.0) pg RDW 24.1 H (11.5-15.5) % Macrocytosis Marked A Sodium 133 L (137-145) mmol/L Creatinine 0.39 L (0.52-1.04) mg/dL Glucose 119 H (74-99) mg/dL Calcium 7.4 L (8.4-10.2) mg/dL Microbiology - Last 24 Hours (Table) 01/13/19 02:50 Urine Culture - Preliminary Urine,Voided Yeast species Assessment and Plan Assessment: Small bowel obstruction and volvulus s/p resection on 01/12/19 - pain control on epidural, continue with fentanyl patch, IV Dilaudid 1 mg every 3 hours and hope to stabilize blood pressures we can diurese patient more successfully - NGT removed 01/15 - TPN per surgery, added extra potassium to TPN, stop additional IVF due to anasarca - NPO - Pain control - Antiemetics - zosyn Right sided pleural effusion - Pulm recs no plan for drainage - continue to monitor Anasarca due to hypoalbuminemia - bumex this afternoon if blood pressure improved - needs TPN for nutrition at this point in time. attempt to minimize additional IVF. hypomagnesemia - replace and recheck Severe protein calorie malnutrition with cachexia and BMI of 17.6 -On TPN -Continue clear ensure when tolerating PO, needs something without lactose -Dietitian recommendations -Marinol stopped due to NPO but should be restarted when okay for diet Hyponatremia, suspect secondary to low solute intake -Continue with TPN, correcting d/w pharmacy -Repeat basic metabolic profile in a.m. Macrocytic anemia -RBC folate and B12 within normal limits, iron studies within normal limits Ferritin >300 -Follow CBC Metastatic breast cancer with metastases to the abdomen -Oncology recommendations - hold xeloda after surgery typically held for 4 weeks will check with oncology Hyperchloremic metabolic acidosis, resolved Hypokalemia, resolved DVT prophylaxis: Heparin Discussed with: Patient, nursing Anticipated discharge: 3-[address]: Home with home health vs [facility] A total of 35 minutes was spent on the care of this complex patient more than 50% of the time was spent in counseling and care coordination.
[2019-01-16] MEDS: SODIUM FERRIC GLUCONAT-SUCROSE 125 MG in SODIUM CHLORIDE 0.9% 100 ML IVPB SCH (10:45)
[2019-01-16] MEDS: TRIAMCINOLONE ACET 0.1% OINTMENT 15 GM TUBE TOPICAL SCH ×2 (11:03→20:17)
--- NOTE | 2019-01-16 12:08 | P.PN ---
Subjective Progress Note Date: 01/16/19 This is a 68-year-old female patient with metastatic breast cancer. The patient is in the hospital because of a bowel obstruction. The patient hasn't been able to eat for more than 10 days. She's been hospitalized for almost 6 days where she was unable to eat and she hasn't been able to pass gas or any bowel movement. NG tube is in place and output remains considerably high. CAT scan of the abdomen and pelvis was ordered and it showed small bowel obstruction and there is concern for pneumatosis intestinalis. It was also noted that the patient has a small to moderate-sized right-sided pleural effusion. In terms of her breast cancer, the patient was diagnosed several years ago and she has r eceived most of her care through [facility]. She underwent a initial lumpectomy and radiation therapy. Following that she received a total of 5 years of Arimidex treatment. Around 2 years ago, her cancer recurred and was metastatic and she was found on systemic chemotherapy with doxorubicin and Cytoxan and the patient was subsequently placed on oral Xeloda. The patient also has had several abdominal surgeries. She also reports a previous bowel obstruction. This point in time the patient is awake and alert. She is a bit weak. She has been able to eat and she is obviously lacking behind on her nutrition. Her albumin level has been down to 2.0. Her CA 2729 level was up to 71 with a CVA 15 3 level of 629. Her total serum iron has been also low at 23. Her current hemoglobin is at 8.7 her white cell count of 4.5. The patient will be taken to the operating room today for an expert laparotomy and lysis of adhesions. There is history of metastases to her abdomen and the metastatic disease could have been also contributing to her bowel obstruction. As far as the pleural effusion, this has not been been drained in the past. The lung bases based on the CAT scan of the abdomen shows no evidence of any metastatic or other poor disease or another if his or lesions. On 01/13/2019 I'm seeing this patient in the follow-up. The patient is in the intensive care unit. The patient has undergone her surgery. Specifically, the patient underwent exploratory laparotomy, small bowel resection, mid jejunal resection and proximal ileal resection with primary anastomosis. There was reduction of a small bowel volvulus and internal hernia. Surgery went well and the patient was brought into the intensive care unit following that. She received a total of 2 L of IV fluids postop. NG tube still in place. Bowel sounds are quite hypoactive. Surgical site is dry clean and intact. She is awake and alert. She is not having any respiratory distress. No cough sputum production. No issues with pain and the patient has a epidural Dilaudid in place for pain control. The hemoglobin today is at 10.4 with a white cell count of 6.6. Serum bicarb is 18 with a creatinine of 0.48. On 01/14/2019 I'm seeing this patient for a follow-up. The patient is looking assess the same compared to yesterday. She is still having abdominal pain. Epidural is running at 4 mg an hour Dilaudid. No significant hypotension. Additional pain control was being given by a fentanyl patch a total of 37.5 g subcu every 72 hours. The patient is on TPN for nutritional support. The patient remains nothing by mouth. NG tube is in place. Antibiotic coverage remains a combination of Zosyn and Flagyl. Bowel sounds are absent. The incision over the anterior abdominal wall is dry clean and intact. The patient otherwise is not having any respiratory distress. We evaluated the patient has a right-sided pleural effusion which we are monitoring for the time being. There is a drop in hemoglobin which is expected after surgery. NG tube is in place. On 01/15/2019 the patient is still recovering from surgery. She is postop day #3. She does have some limited bowel sounds. No significant activity. Output from the NG tube has been 7 50 mL over the past 24 hours. The patient is otherwise doing well. She is awake and alert pH is complaining of some increased edema both in the upper and lower extremities. She is on TPN for nutritional support. She has on epidural Dilaudid for pain control. She is on IV antibiotics with Zosyn and Flagyl. She is using incentive spirometer. NG tube is in place. No other issues for now. Her condition essentially the same compared to yesterday. Electrodes are being replaced regularly. On 01/16/2019, the patient is still not passing any gas or flatus or bowel movement. The patient is laying comfortably in bed. She has developed i ncreased edema probably related to ongoing TPN and fluids. She has also developed diffuse anasarca. She is taking Dilaudid for pain control. No nausea. No emesis. She is tired and weak. No significant shortness of breath knowing that she has a right-sided pleural effusion. Surgical site is dry clean and intact. No other significant events otherwise for now. NG tube still in place. She is tolerating the NG tube quite well and output from the NG tube has been 200 mL over the past 24 hours. Based on that the NG tube was removed yesterday. Her weight is up to 61.5 KG's. Net fluid balance is +2.8 L over the past 24 hours. Patient's hemoglobin is down to 8.7. The patient's serum alb umin is down to 1.68 she is receiving TPN for nutritional support. Amylase and lipase are within normal limits. Potassium level has been replaced. Objective - Vital Signs Vital signs: Vital Signs Temp 97.6 F 01/16/19 08:00 Pulse 87 01/16/19 11:00 Resp 17 01/16/19 11:00 BP 85/50 01/16/19 11:00 Pulse Ox 100 01/16/19 11:00 Intake & Output 01/15/19 01/16/19 01/16/19 18:59 06:59 18:59 Intake Total 3733 3383 936 Output Total 2520 1735 345 Balance 1213 1648 591 Weight 61.5 kg Intake: IV 1502 1432 371 0.9% NaCl with KCl 40 Meq 825 150 /l 1,000 ml @ 75 mls/hr IV .[id number] [facility] Rx#: [id number] Fat Emulsion 20% 250 ml 42 252 21 In Empty Bag 1 bag @ 21 mls/hr IV DAILY@1800 [facility] Rx#:[id number] Magnesium Sulfate-D5w Pmx 100 100 1 gm In Dextrose/Water 1 100ml.bag @ 100 mls/hr IVPB Q1H [facility] Rx#: [id number] Mvi, Adult No.4 with Vit 660 55 K 10 ml Trace (Conc-1Ml/ Dose) 1 ml Potassium Chloride 40 meq In Amino Acid 5%-D15w+Lytes*E* 1, 000 ml @ 55 mls/hr IV . [id number] [facility] Rx#:[id number] Piperacillin-Tazobactam 3 200 100 100 .375 gm In Sodium Chloride 0.9% 100 ml @ 25 mls/hr IVPB Q8HR [facility] Rx# :[id number] Potassium Chloride 10 meq 300 100 In Water For Injection 1 100ml.bag @ 100 mls/hr IVPB Q1HR [facility] Rx#: [id number] Sodium Chloride 0.9% 1, 200 000 ml @ 100 mls/hr IV . Q10H [facility] Rx#:[id number] metroNIDAZOLE-NS PMX 500 100 mg In Saline 1 100ml.bag @ 100 mls/hr IVPB Q8H [facility] Rx#:[id number] Intake, IV Titration 2231 1106 200 Amount 0.9% NaCl with KCl 40 Meq 600 75 /l 1,000 ml @ 75 mls/hr IV .[id number] [facility] Rx#: [id number] Magnesium Sulfate-D5w Pmx 200 1 gm In Dextrose/Water 1 100ml.bag @ 100 mls/hr IVPB Q1H [facility] Rx#: [id number] Mvi, Adult No.4 with Vit 1031 1031 K 10 ml Trace (Conc-1Ml/ Dose) 1 ml Potassium Chloride 40 meq In Amino Acid 5%-D15w+Lytes*E* 1, 000 ml @ 55 mls/hr IV . [id number] [facility] Rx#:[id number] Potassium Chloride 10 meq 100 In Water For Injection 1 100ml.bag @ 100 mls/hr IVPB Q1H [facility] Rx#: [id number] Potassium Chloride 10 meq 100 In Water For Injection 1 100ml.bag @ 100 mls/hr IVPB Q1HR [facility] Rx#: [id number] Potassium Chloride 20 meq 200 In Water For Injection 1 100ml.bag @ 50 mls/hr IVPB Q2H [facility] Rx#: [id number] Sodium Ferric Gluconat- 100 100 Sucrose 125 mg In Sodium Chloride 0.9% 100 ml @ 100 mls/hr IVPB DAILY [facility] Rx#:[id number] Oral 240 90 TPN/PPN 605 275 Mvi, Adult No.4 with Vit 605 275 K 10 ml Trace (Conc-1Ml/ Dose) 1 ml Potassium Chloride 40 meq In Amino Acid 5%-D15w+Lytes*E* 1, 000 ml @ 55 mls/hr IV . [id number] [facility] Rx#:[id number] Output: Gastric Drainage 200 Urine 2320 1735 345 Other: Voiding Method Indwelling Catheter Indwelling Catheter Indwelling Catheter - Exam Gen. appearance weak frail elderly female patient on acute distress BMI is 18.7, the patient is calm and comfortable. She is awake and communicating. Not in acute respiratory distress. . Head exam was generally normal. There was no scleral icterus or corneal arcus. Mucous membranes were moist. Neck was supple and without jugular venous distension, thyromegaly, or carotid bruits. Carotids were easily palpable bilaterally. There was no adenopathy. The patient has an NG tube in place with greenish amount of material being drained in the suction canister. Lungs sounds are diminished in the right lung base along with some dullness to percussion. Breath sounds are diminished in the right lung base. Breath sounds of normal within the left lung. Cardiac exam revealed the PMI to be normally situated and sized. The rhythm was regular and no extrasystoles were noted during several minutes of auscultation. The first and second heart sounds were normal and physiologic splitting of the second heart sound was noted. There were no murmurs, rubs, clicks, or gallops. Abdomen there is a mid abdominal incision/scar which is dry clean and intact. Bowel sounds are absent. No organomegaly. No direct tenderness or rebound tenderness or guarding at this point in time. Examination of the extremities revealed easily palpable radial, femoral and pedal pulses. There was no cyanosis, clubbing or edema. Examination of the skin revealed no evidence of significant rashes, suspicious appearing nevi or other concerning lesions. Neurologically awake and alert and is no focal neurological deficit. - Labs CBC & Chem 7: 01/16/19 04:50 01/16/19 04:50 Labs: Abnormal Lab Results - Last 24 Hours (Table) 01/16/19 01/16/19 Range/Units 04:50 04:50 RBC 2.39 L (3.80-5.40) m/uL Hgb 8.7 L (11.4-16.0) gm/dL Hct 25.8 L (34.0-46.0) % MCV 107.9 H (80.0-100.0) fL MCH 36.4 H (25.0-35.0) pg RDW 24.1 H (11.5-15.5) % Macrocytosis Marked A Sodium 133 L (137-145) mmol/L Creatinine 0.39 L (0.52-1.04) mg/dL Glucose 119 H (74-99) mg/dL Calcium 7.4 L (8.4-10.2) mg/dL Microbiology - Last 24 Hours (Table) 01/13/19 02:50 Urine Culture - Final Urine,Voided Inez glabrata Assessment and Plan Plan: 1 small bowel obstruction, failed conservative measures of gastric decompression and bowel rest. The patient has a possibility of most of the bowel/abdominal cavity causing an anatomic bowel obstruction. Also there is a possibility of adhesions causing small bowel obstruction. The patient has an NG tube in place. The patient be taken to the operating room for an laparotomy. The patient also has developed a new pneumatosis intestinalis along with a small bowel obstruction and the follow-up CAT scan of the abdomen showed prominent dilatation of the jejunum and proximal ileum with the bowel loops reaching up to 4.5 cm in size throughout the left upper quadrant. There is also heterogeneous infiltrating peritoneal soft tissue masses seen in the anterior pararenal space as well as the mesocolon and subperitoneal space of the mesentery and this obviously raises the concern for metastatic neoplasm. On 01/13/2019 the patient is post exploratory laparotomy and small bowel resection 2 involving the mid Jina M and proximal ileum and the patient has undergone primary anastomosis 2 and the patient is postop day #1. The patient is doing extremely well. Bowel sounds are still absent. She has good pain control with epidural Dilaudid. She is hemodynamically stable. She has seen a total of 2 L of IV fluids. NG tube still in place. On 01/14/2019, the patient is postop day #2 following bowel resection and exploratory laparotomy. Doing essentially the same. No bowel activity or flatus yet. NG tube is in place. The patient on TPN for nutritional support. Pain control with fentanyl patch in addition to epidural Dilaudid. On 01/15/2019 the patient is postop day #3. NG tube is in place. Output from the NG tube is considerably high. She is still having no bowel movement with activity although there is some sluggish bowel sounds today. She is on TPN for additional support. She is nothing by mouth. She is receiving antiemetics. She is on IV Zosyn. She is hemodynamically stable. On 01/16/2019 the patient is postop day #4. NG tube is in place. No bowel soun ds are bowel activity yet. She is still receiving TPN for discharge support. Serum protein is low and the patient seems to be quite weak and she is developing anasarca and fluid overload related to hypoproteinemia and IV fluids infusions. 2 metastatic breast cancer, stage IV with questionable metastases to her bowels/abdomen, awaiting pathology results from the small bowel resection 3 right-sided pleural effusion [id number] in size, could be possibly malignant 4 chronic anemia 5 hypo-albuminemia, likely nutritional as the patient has been nothing by mouth for more than text days and her overall oral intake and cardiac intake has been extremely low, currently on TPN. The patient has severe protein calorie malnutrition and her body mass index is down to 17.6 6 macrocytic anemia 7 generalized weakness and the patient is an nothing by mouth status. Plan Continue the supportive care. TPN for nutritional support. Keep the patient nothing by mouth for now. Initial potassium was added to the TPN and we will cut down the IV fluids to a lower rate. Continue pain control. IV Zosyn. Incentive spirometer. Replace electrolytes. Amylase and lipase are within normal limits. Triglycerides is not elevated. We'll continue to follow. Magnesium is replaced. Potassium has been replaced. Prognosis poor baseline above-mentioned comorbidities.
[2019-01-16] MEDS ORDERED: MAGNESIUM HYDROXIDE 2,400 MG/10 ML CUP PO ONE (12:47)
--- NOTE | 2019-01-16 12:53 | P.PN ---
Subjective Progress Note Date: 01/16/19 CHIEF COMPLAINT: Small bowel obstruction HISTORY OF PRESENT ILLNESS: The patient is a 68-year-old female status post small bowel resection 2 with lysis of adhesion, 01/12/19. She is postoperative day 4. She is surrounded by family at bedside. No reports of increased abdominal pain. She has physical therapy with limitation to in bed exercise. She has not ambulated. She still has her epidural. No passage of flatus. I had personally removed her NG yesterday. ROS: No reports of nausea and vomiting. No bowel movements. No fevers or chills. No new chest pain. PHYSICAL EXAM: VITAL SIGNS: Reviewed CONSTITUTIONAL: Well developed and in no acute distress. EYES: Conjuctivae without sclera icterus. Extraocular movements grossly intact. HEAD, EARS, NOSE, THROAT: Moist buccal mucosa. Head is atraumatic, normocephalic. Hears conversational speech. No nasal drainage. NG bilious output. NECK: Supple. No thyroidomegaly. RESPIRATORY: Non-labored respirations and equal bilateral excursions. CARDIOVASCULAR: Palpable 2+ radial pulses. Regular rate. Regular rhythm. ABDOMEN: PREVENA vac intact. No peritonitis. No cellulitis MUSCULOSKELETAL: No gross deformity of the lower extremities noted. No clubbing. No cyanosis. SKIN: Good skin turgor. Well perfused. NEUROLOGIC: Cranial nerves I through XII grossly intact. No focal or lateralizing signs. PSYCH: Appropriate affect. Alert and oriented to person, place and time. CLINCAL LABS: White blood cell count normal. Hgb is over 8.0 ASSESSMENT: 1. Small bowel obstruction 2. History of abnormal computed tomography scan with pneumatosis intestinalis 3. Metastatic breast cancer to her abdomen 4. Status post small bowel resection PLAN: 1. Will give one dose of Milk of Magnesium as intraoperative showed constipation 2. Will need assessment for rehab for prolonged hospitalization and generalized debility 3. Await bowel function 4. Remove epidural 5. Likely disposition at least 5 days complicated by pre-existing debility and prolonged NPO status with bowel obstruction. 6. Continue TPN 7. Continue ICU care. Objective - Vital Signs Vital signs: Vital Signs Temp 97.6 F 01/16/19 08:00 Pulse 87 01/16/19 11:00 Resp 17 01/16/19 11:00 BP 85/50 01/16/19 11:00 Pulse Ox 100 01/16/19 11:00 Intake & Output 01/15/19 01/16/19 01/16/19 18:59 06:59 18:59 Intake Total 3733 3383 936 Output Total 2520 1735 345 Balance 1213 1648 591 Weight 61.5 kg 61.5 kg Intake: IV 1502 1432 371 0.9% NaCl with KCl 40 Meq 825 150 /l 1,000 ml @ 75 mls/hr IV .[id number] [facility] Rx#: [id number] Fat Emulsion 20% 250 ml 42 252 21 In Empty Bag 1 bag @ 21 mls/hr IV DAILY@1800 [facility] Rx#:[id number] Magnesium Sulfate-D5w Pmx 100 100 1 gm In Dextrose/Water 1 100ml.bag @ 100 mls/hr IVPB Q1H [facility] Rx#: [id number] Mvi, Adult No.4 with Vit 660 55 K 10 ml Trace (Conc-1Ml/ Dose) 1 ml Potassium Chloride 40 meq In Amino Acid 5%-D15w+Lytes*E* 1, 000 ml @ 55 mls/hr IV . [id number] [facility] Rx#:[id number] Piperacillin-Tazobactam 3 200 100 100 .375 gm In Sodium Chloride 0.9% 100 ml @ 25 mls/hr IVPB Q8HR [facility] Rx# :[id number] Potassium Chloride 10 meq 300 100 In Water For Injection 1 100ml.bag @ 100 mls/hr IVPB Q1HR [facility] Rx#: [id number] Sodium Chloride 0.9% 1, 200 000 ml @ 100 mls/hr IV . Q10H [facility] Rx#:[id number] metroNIDAZOLE-NS PMX 500 100 mg In Saline 1 100ml.bag @ 100 mls/hr IVPB Q8H [facility] Rx#:[id number] Intake, IV Titration 2231 1106 200 Amount 0.9% NaCl with KCl 40 Meq 600 75 /l 1,000 ml @ 75 mls/hr IV .[id number] [facility] Rx#: [id number] Magnesium Sulfate-D5w Pmx 200 1 gm In Dextrose/Water 1 100ml.bag @ 100 mls/hr IVPB Q1H [facility] Rx#: [id number] Mvi, Adult No.4 with Vit 1031 1031 K 10 ml Trace (Conc-1Ml/ Dose) 1 ml Potassium Chloride 40 meq In Amino Acid 5%-D15w+Lytes*E* 1, 000 ml @ 55 mls/hr IV . [id number] [facility] Rx#:[id number] Potassium Chloride 10 meq 100 In Water For Injection 1 100ml.bag @ 100 mls/hr IVPB Q1H [facility] Rx#: [id number] Potassium Chloride 10 meq 100 In Water For Injection 1 100ml.bag @ 100 mls/hr IVPB Q1HR [facility] Rx#: [id number] Potassium Chloride 20 meq 200 In Water For Injection 1 100ml.bag @ 50 mls/hr IVPB Q2H [facility] Rx#: [id number] Sodium Ferric Gluconat- 100 100 Sucrose 125 mg In Sodium Chloride 0.9% 100 ml @ 100 mls/hr IVPB DAILY [facility] Rx#:[id number] Oral 240 90 TPN/PPN 605 275 Mvi, Adult No.4 with Vit 605 275 K 10 ml Trace (Conc-1Ml/ Dose) 1 ml Potassium Chloride 40 meq In Amino Acid 5%-D15w+Lytes*E* 1, 000 ml @ 55 mls/hr IV . [id number] [facility] Rx#:[id number] Output: Gastric Drainage 200 Urine 2320 1735 345 Other: Voiding Method Indwelling Catheter Indwelling Catheter Indwelling Catheter - Labs CBC & Chem 7: 01/16/19 04:50 01/16/19 04:50 Labs: Abnormal Lab Results - Last 24 Hours (Table) 01/16/19 01/16/19 Range/Units 04:50 04:50 RBC 2.39 L (3.80-5.40) m/uL Hgb 8.7 L (11.4-16.0) gm/dL Hct 25.8 L (34.0-46.0) % MCV 107.9 H (80.0-100.0) fL MCH 36.4 H (25.0-35.0) pg RDW 24.1 H (11.5-15.5) % Macrocytosis Marked A Sodium 133 L (137-145) mmol/L Creatinine 0.39 L (0.52-1.04) mg/dL Glucose 119 H (74-99) mg/dL Calcium 7.4 L (8.4-10.2) mg/dL Microbiology - Last 24 Hours (Table) 01/13/19 02:50 Urine Culture - Final Urine,Voided Inez glabrata Assessment and Plan (1) Abdominal pain Current Visit: Yes Status: Chronic Priority: High Code(s): R10.9 - UN SPECIFIED ABDOMINAL PAIN SNOMED Code(s): 33584538 (2) Dehydration Current Visit: Yes Status: Acute Code(s): E86.0 - DEHYDRATION SNOMED Code(s): 57212334 (3) Intractable vomiting Current Visit: Yes Status: Acute Code(s): R11.10 - VOMITING, UNSPECIFIED SNOMED Code(s): 669975951 (4) Metastatic breast cancer Current Visit: Yes Status: Chronic Priority: High Code(s): C50.919 - MALIGNANT NEOPLASM OF UNSP SITE OF UNSPECIFIED FEMALE BREAST SNOMED Code(s): 553884466 (5) Small bowel obstruction Current Visit: No Status: Acute Code(s): K56.609 - UNSP INTESTNL OBST, UNSP TO PARTIAL VERSUS COMPLETE OBST SNOMED Code(s): 447716339 (6) Iron deficiency anemia Current Visit: Yes Status: Acute Code(s): D50.9 - IRON DEFICIENCY ANEMIA, UNSPECIFIED SNOMED Code(s): 83466531 (7) Abnormal abdominal CT scan Current Visit: Yes Status: Acute Code(s): R93.5 - ABN FINDINGS ON DX IMAGING OF ABD REGIONS, INC RETROPERITON SNOMED Code(s): 94786610826222977 (8) S/P small bowel resection Current Visit: Yes Status: Acute Code(s): Z90.49 - ACQUIRED ABSENCE OF OTHER SPECIFIED PARTS OF DIGESTIVE TRACT SNOMED Code(s): 002688985652348 (9) Severe protein-calorie malnutrition Current Visit: Yes Status: Acute Code(s): E43 - UNSPECIFIED SEVERE PROTEIN- CALORIE MALNUTRITION SNOMED Code(s): 825927692
[2019-01-16] MEDS ORDERED: BUMETANIDE 0.25 MG/ML 4 ML VIAL IVP STA (17:12)
[2019-01-16] MEDS: FAT EMULSION 20% 250 ML in EMPTY BAG 1 BAG IV SCH (17:48)
[2019-01-16] MEDS ORDERED: MVI, ADULT NO.4 WITH VIT K 10 ML, TRACE (CONC-1ML/DOSE) 1 ML, POTASSIUM CHLORIDE 60 MEQ... IV SCH ×6 (21:30)
[2019-01-16] MEDS: ZOLPIDEM 5 MG TAB PO PRN (22:06)
[2019-01-16] MEDS: ALPRAZolam 0.5 MG TAB PO PRN (22:06)
[2019-01-17] MEDS ORDERED: HYDROmorphone 1 MG/ML 1 ML SYRINGE IVP STA
[2019-01-17] MEDS: ONDANSETRON 4 MG/2 ML VIAL IVP SCH ×5 (00:09→23:08)
[2019-01-17] MEDS: HEPARIN SODIUM,PORCINE 5,000 UNIT/ML 1 ML VIAL SQ SCH ×4 (00:09→23:09)
[2019-01-17] MEDS: PIPERACILLIN-TAZOBACTAM 3.375 GM in SODIUM CHLORIDE 0.9% 100 ML IVPB SCH ×4 (00:09→23:08)
[2019-01-17] MEDS: HYDROmorphone 1 MG/ML 1 ML SYRINGE IVP PRN ×6 (03:45→22:10)
[2019-01-17] MEDS: METOCLOPRAMIDE 5 MG/ML 2 ML VIAL IVP SCH ×4 (03:46→20:00)
[2019-01-17 06:53] LABS: Anisocytosis Moderate; HCT 28.3 % (34.0-46.0); HGB 9.2 gm/dL (11.4-16.0); MCH 35.9 pg (25.0-35.0); MCHC 32.3 g/dL (31.0-37.0); Mean Platelet Volume 7.6; Platelet Count 333 k/uL (150-450); RBC 2.55 m/uL (3.80-5.40); RDW 23.8 % (11.5-15.5); WBC 7.8 k/uL (3.8-10.6)
[2019-01-17 06:54] LABS: Macrocytosis Marked
[2019-01-17 07:04] LABS: ALT 26 U/L (9-52); AST 30 U/L (14-36); African American GFR (CKD) >90 (>60 ml/min/1.73 sqM); Albumin 1.8 g/dL (3.5-5.0); Alkaline Phosphatase 32 U/L (38-126); Anion Gap 3 mmol/L; Blood Urea Nitrogen 9 mg/dL (7-17); Calcium 7.9 mg/dL (8.4-10.2); Carbon Dioxide 33 mmol/L (22-30); Chloride 96 mmol/L (98-107); Glucose 119 mg/dL (74-99); Phosphorus 3.7 mg/dL (2.5-4.5); Potassium 4.7 mmol/L (3.5-5.1); Sodium 132 mmol/L (137-145); Total Bilirubin 0.2 mg/dL (0.2-1.3); Total Protein 3.6 g/dL (6.3-8.2)
[2019-01-17] MEDS: SODIUM FERRIC GLUCONAT-SUCROSE 125 MG in SODIUM CHLORIDE 0.9% 100 ML IVPB SCH (08:21)
[2019-01-17] MEDS: PANTOPRAZOLE 40 MG/10 ML VIAL IVP SCH (08:21)
[2019-01-17] MEDS: DOCUSATE 100 MG CAP PO SCH ×2 (08:22→22:10)
[2019-01-17] MEDS: ASPIRIN 81 MG PO SCH (08:22)
--- NOTE | 2019-01-17 11:53 | P.PN ---
<Teresita Weaver Gino - Last Filed: 01/17/19 11:51> Subjective Progress Note Date: 01/17/19 CHIEF COMPLAINT: abdominal pain HISTORY OF PRESENT ILLNESS: Patient is status post exploratory laparotomy with small bowel resection 2, primary small bowel anastomosis 2, reduction of small bowel volvulus and internal hernia right lower quadrant. Postop day #5. Epidural was discontinued over the weekend. She reports abdominal pain 7/10 this morning. Tolerating ice chips and popsicles. Denies nausea. Denies passing flatus or having BMs. WBC 7.8. Hemoglobin 9.2. PHYSICAL EXAM: VITAL SIGNS: Reviewed GENERAL: Well-developed in no acute distress. HEENT: No sclera icterus. Extraocular movements grossly intact. Moist buccal mucosa. Head is atraumatic, normocephalic. Hears conversational speech. No nasal drainage. NECK: Supple without lymphadenopathy. CHEST: Non-labored respirations and equal bilateral excursions. CARDIOVASCULAR: Regular rate with regular rhythm. Palpable 2+ radial pulses. ABDOMEN: Soft. Nondistended. Mild tenderness. PREVENA to midline incision. MUSCULOSKELETAL: No clubbing, cyanosis or edema. NEUROLOGIC: No focal or lateralizing signs. Cranial nerves II through XII grossly intact. PSYCH: Appropriate affect. Alert and oriented to person, place and time. SKIN: Well perfused. Good skin turgor. ASSESSMENT: 1. Small bowel obstruction, status post exploratory laparotomy with small bowel resection 2, primary small bowel anastomosis 2, reduction of small bowel volvulus and internal hernia right lower quadrant 2. Metastatic breast cancer PLAN: 1. Continue ice chips and popsicles. Do not advance diet until patient is passing flatus. 2. Pain control. Continue current regimen. Consult pain management 3. Incentive spirometry 4. Continue TPN 5. Activity as tolerated. Patient to be OOB, in the chair, and ambulatory today Nurse practitioner note has been reviewed by physician. Signing provider agrees with the documented findings, assessment, and plan of care. Objective - Vital Signs Vital signs: Vital Signs Temp 97.6 F 01/17/19 09:00 Pulse 73 01/17/19 10:00 Resp 10 L 01/17/19 10:00 BP 90/55 01/17/19 10:00 Pulse Ox 100 01/17/19 10:00 Intake & Output 01/16/19 01/17/19 01/17/19 18:59 06:59 18:59 Intake Total 1608 936 386 Output Total 1195 2710 350 Balance 413 -1774 36 Weight 61.5 kg 58.7 kg Intake: IV 513 331 121 0.9% NaCl with KCl 40 Meq 150 /l 1,000 ml @ 75 mls/hr IV .[id number] [facility] Rx#: [id number] Fat Emulsion 20% 250 ml 63 231 21 In Empty Bag 1 bag @ 21 mls/hr IV DAILY@1800 [facility] Rx#:[id number] Magnesium Sulfate-D5w Pmx 100 1 gm In Dextrose/Water 1 100ml.bag @ 100 mls/hr IVPB Q1H [facility] Rx#: [id number] Piperacillin-Tazobactam 3 200 100 100 .375 gm In Sodium Chloride 0.9% 100 ml @ 25 mls/hr IVPB Q8HR [facility] Rx# :[id number] Intake, IV Titration 200 100 Amount Potassium Chloride 10 meq 100 In Water For Injection 1 100ml.bag @ 100 mls/hr IVPB Q1H [facility] Rx#: [id number] Sodium Ferric Gluconat- 100 100 Sucrose 125 mg In Sodium Chloride 0.9% 100 ml @ 100 mls/hr IVPB DAILY [facility] Rx#:[id number] Oral 180 TPN/PPN 715 605 165 Mvi, Adult No.4 with Vit 715 605 165 K 10 ml Trace (Conc-1Ml/ Dose) 1 ml Potassium Chloride 40 meq In Amino Acid 5%-D15w+Lytes*E* 1, 000 ml @ 55 mls/hr IV . [id number] [facility] Rx#:[id number] Output: Urine 1195 2710 350 Other: Voiding Method Indwelling Catheter Indwelling Catheter Indwelling Catheter - Labs CBC & Chem 7: 01/17/19 06:03 01/17/19 06:03 Labs: Abnormal Lab Results - Last 24 Hours (Table) 01/17/19 01/17/19 Range/Units 06:03 06:03 RBC 2.55 L (3.80-5.40) m/uL Hgb 9.2 L (11.4-16.0) gm/dL Hct 28.3 L (34.0-46.0) % MCV 111.0 H (80.0-100.0) fL MCH 35.9 H (25.0-35.0) pg RDW 23.8 H (11.5-15.5) % Macrocytosis Marked A Sodium 132 L (137-145) mmol/L Chloride 96 L (98-107) mmol/L Carbon Dioxide 33 H (22-30) mmol/L Creatinine 0.42 L (0.52-1.04) mg/dL Glucose 119 H (74-99) mg/dL Calcium 7.9 L (8.4-10.2) mg/dL Alkaline Phosphatase 32 L (38-126) U/L Total Protein 3.6 L (6.3-8.2) g/dL Albumin 1.8 L (3.5-5.0) g/dL Microbiology - Last 24 Hours (Table) 01/13/19 02:50 Urine Culture - Final Urine,Voided Inez glabrata <Salma Downey - Last Filed: 01/17/19 18:09> Objective - Vital Signs Vital signs: Vital Signs Temp 97.6 F 01/17/19 09:00 Pulse 82 01/17/19 16:00 Resp 18 01/17/19 16:00 BP 92/69 01/17/19 16:00 Pulse Ox 100 01/17/19 16:00 Intake & Output 01/16/19 01/17/19 01/17/19 18:59 06:59 18:59 Intake Total 1608 936 871 Output Total 1192 2710 1150 Balance 777 -3588 -765 Weight 61.5 kg 58.7 kg Intake: IV 513 331 221 0.9% NaCl with KCl 40 Meq 150 /l 1,000 ml @ 75 mls/hr IV .[id number] [facility] Rx#: [id number] Fat Emulsion 20% 250 ml 63 231 21 In Empty Bag 1 bag @ 21 mls/hr IV DAILY@1800 [facility] Rx#:[id number] Magnesium Sulfate-D5w Pmx 100 1 gm In Dextrose/Water 1 100ml.bag @ 100 mls/hr IVPB Q1H [facility] Rx#: [id number] Piperacillin-Tazobactam 3 200 100 200 .375 gm In Sodium Chloride 0.9% 100 ml @ 25 mls/hr IVPB Q8HR [facility] Rx# :[id number] Intake, IV Titration 200 100 Amount Potassium Chloride 10 meq 100 In Water For Injection 1 100ml.bag @ 100 mls/hr IVPB Q1H [facility] Rx#: [id number] Sodium Ferric Gluconat- 100 100 Sucrose 125 mg In Sodium Chloride 0.9% 100 ml @ 100 mls/hr IVPB DAILY [facility] Rx#:[id number] Oral 180 TPN/PPN 715 605 550 Mvi, Adult No.4 with Vit 715 605 550 K 10 ml Trace (Conc-1Ml/ Dose) 1 ml Potassium Chloride 40 meq In Amino Acid 5%-D15w+Lytes*E* 1, 000 ml @ 55 mls/hr IV . [id number] [facility] Rx#:[id number] Output: Urine 1195 2710 1150 Other: Voiding Method Indwelling Catheter Indwelling Catheter Indwelling Catheter - Labs CBC & Chem 7: 01/17/19 06:03 01/17/19 06:03 Labs: Abnormal Lab Results - Last 24 Hours (Table) 01/17/19 01/17/19 Range/Units 06:03 06:03 RBC 2.55 L (3.80-5.40) m/uL Hgb 9.2 L (11.4-16.0) gm/dL Hct 28.3 L (34.0-46.0) % MCV 111.0 H (80.0-100.0) fL MCH 35.9 H (25.0-35.0) pg RDW 23.8 H (11.5-15.5) % Macrocytosis Marked A Sodium 132 L (137-145) mmol/L Chloride 96 L (98-107) mmol/L Carbon Dioxide 33 H (22-30) mmol/L Creatinine 0.42 L (0.52-1.04) mg/dL Glucose 119 H (74-99) mg/dL Calcium 7.9 L (8.4-10.2) mg/dL Alkaline Phosphatase 32 L (38-126) U/L Total Protein 3.6 L (6.3-8.2) g/dL Albumin 1.8 L (3.5-5.0) g/dL Assessment and Plan (1) Abdominal pain Current Visit: Yes Status: Chronic Priority: High Code(s): R10.9 - UNSPECIFIED ABDOMINAL PAIN SNOMED Code(s): 13236824 (2) Dehydration Current Visit: Yes Status: Acute Code(s): E86.0 - DEHYDRATION SNOMED Code(s): 91477264 (3) Intractable vomiting Current Visit: Yes Status: Acute Code(s): R11.10 - VOMITING, UNSPECIFIED SNOMED Code(s): 249862825 (4) Metastatic breast cancer Current Visit: Yes Status: Chronic Priority: High Code(s): C50.919 - MALIGNANT NEOPLASM OF UNSP SITE OF UNSPECIFIED FEMALE BREAST SNOMED Code(s): 999035874 (5) Small bowel obstruction Current Visit: No Status: Acute Code(s): K56.609 - UNSP INTESTNL OBST, UNSP TO PARTIAL VERSUS COMPLETE OBST SNOMED Code(s): 068422806 (6) Iron deficiency anemia Current Visit: Yes Status: Acute Code(s): D50.9 - IRON DEFICIENCY ANEMIA, UNSPECIFIED SNOMED Code(s): 50687066 (7) Abnormal abdominal CT scan Current Visit: Yes Status: Acute Code(s): R93.5 - ABN FINDINGS ON DX IMAGING OF ABD REGIONS, INC RETROPERITON SNOMED Code(s): 29300686575865812 (8) S/P small bowel resection Current Visit: Yes Status: Acute Code(s): Z90.49 - ACQUIRED ABSENCE OF OTHER SPECIFIED PARTS OF DIGESTIVE TRACT SNOMED Code(s): 610942276278599 (9) Severe protein-calorie malnutrition Current Visit: Yes Status: Acute Code(s): E43 - UNSPECIFIED SEVERE PROTEIN- CALORIE MALNUTRITION SNOMED Code(s): 015488075
[2019-01-17] MEDS: TRIAMCINOLONE ACET 0.1% OINTMENT 15 GM TUBE TOPICAL SCH ×2 (12:04→20:00)
--- NOTE | 2019-01-17 12:50 | P.PN ---
Subjective Progress Note Date: 01/17/19 Principal diagnosis: Acute small bowel obstruction, status post exploratory laparotomy and small bowel resection, postoperative day #5. This is a 68-year-old female patient with metastatic breast cancer. The patient is in the hospital because of a bowel obstruction. The patient hasn't been able to eat for more than 10 days. She's been hospitalized for almost 6 days where she was unable to eat and she hasn't been able to pass gas or any bowel movement. NG tube is in place and output remains considerably high. CAT scan of the abdomen and pelvis was ordered and it showed small bowel obstruction and there is concern for pneumatosis intestinalis. It was also noted that the patient has a small to moderate-sized right-sided pleural effusion. In terms of her breast cancer, the patient was diagnosed several years ago and she has received most of her care through [facility]. She underwent a initial lumpectomy and radiation therapy. Following that she received a total of 5 years of Arimidex treatment. Around 2 years ago, her cancer recurred and was metastatic and she was found on systemic chemotherapy with doxorubicin and Cytoxan and the patient was subsequently placed on oral Xeloda. The patient also has had several abdominal surgeries. She also reports a previous bowel obstruction. This point in time the patient is awake and alert. She is a bit weak. She has been able to eat and she is obviously lacking behind on her nutrition. Her albumin level has been down to 2.0. Her CA 2729 level was up to 71 with a CVA 15 3 level of 629. Her total serum iron has been also low at 23. Her current hemoglobin is at 8.7 her white cell count of 4.5. The patient will be taken to the operating room today for an expert laparotomy and lysis of adhesions. There is history of metastases to her abdomen and the metastatic disease could have been also contributing to her bowel obstruction. As far as the pleural effusion, this has not been been drained in the past. The lung bases based on the CAT scan of the abdomen shows no evidence of any metastatic or other poor disease or another if his or lesions. On 01/13/2019 I'm seeing this patient in the follow-up. The patient is in the intensive care unit. The patient has undergone her surgery. Specifically, the patient underwent exploratory laparotomy, small bowel resection, mid jejunal resection and proximal ileal resection with primary anastomosis. There was reduction of a small bowel volvulus and internal hernia. Surgery went well and the patient was brought into the intensive care unit following that. She received a total of 2 L of IV fluids postop. NG tube still in place. Bowel sounds are quite hypoactive. Surgical site is dry clean and intact. She is awake and alert. She is not having any respiratory distress. No cough sputum production. No issues with pain and the patient has a epidural Dilaudid in place for pain control. The hemoglobin today is at 10.4 with a white cell count of 6.6. Serum bicarb is 18 with a creatinine of 0.48. On 01/14/2019 I'm seeing this patient for a follow-up. The patient is looking assess the same compared to yesterday. She is still having abdominal pain. Epidural is running at 4 mg an hour Dilaudid. No significant hypotension. Additional pain control was being given by a fentanyl patch a total of 37.5 g subcu every 72 hours. The patient is on TPN for nutritional support. The patient remains nothing by mouth. NG tube is in place. Antibiotic coverage remains a combination of Zosyn and Flagyl. Bowel sounds are absent. The incision over the anterior abdominal wall is dry clean and intact. The patient otherwise is not having any respiratory distress. We evaluated the patient has a right-sided pleural effusion which we are monitoring for the time being. There is a drop in hemoglobin which is expected after surgery. NG tube is in place. On 01/15/2019 the patient is still recovering from surgery. She is postop day #3. She does have some limited bowel sounds. No significant activity. Output from the NG tube has been 7 50 mL over the past 24 hours. The patient is otherwise doing well. She is awake and alert pH is complaining of some increased edema both in the upper and lower extremities. She is on TPN for nutritional support. She has on epidural Dilaudid for pain control. She is on IV antibiotics with Zosyn and Flagyl. She is using incentive spirometer. NG tube is in place. No other issues for now. Her condition essentially the same compared to yesterday. Electrodes are being replaced regularly. On 01/16/2019, the patient is still not passing any gas or flatus or bowel movement. The patient is laying comfortably in bed. She has developed increased edema probably related to ongoing TPN and fluids. She has also developed diffuse anasarca. She is taking Dilaudid for pain control. No nausea. No emesis. She is tired and weak. No significant shortness of breath knowing that she has a right-sided pleural effusion. Surgical site is dry clean and intact. No other significant events otherwise for now. NG tube still in place. She is tolerating the NG tube quite well and output from the NG tube has been 200 mL over the past 24 hours. Based on that the NG tube was removed yesterday. Her weight is up to 61.5 KG's. Net fluid balance is +2.8 L over the past 24 hours. Patient's hemoglobin is down to 8.7. The patient's serum albumin is down to 1.68 she is receiving TPN for nutritional support. Amylase and lipase are within normal limits. Potassium level has been replaced. Reevaluated today on 01/17/2019, patient remains in the ICU, continues to have some abdominal discomfort this morning, tolerating ice chips and popsicles, denies passing any flatus or having any bowel movements. Hemoglobin is 9.2 WBC count is 7.8 lites are relatively normal renal profile is normal Objective - Vital Signs Vital signs: Vital Signs Temp 97.6 F 01/17/19 09:00 Pulse 79 01/17/19 12:00 Resp 20 01/17/19 12:00 BP 94/59 01/17/19 12:00 Pulse Ox 100 01/17/19 12:00 Intake & Output 01/16/19 01/17/19 01/17/19 18:59 06:59 18:59 Intake Total 1608 936 551 Output Total 1195 2710 700 Balance 413 -1774 -149 Weight 61.5 kg 58.7 kg Intake: IV 513 331 121 0.9% NaCl with KCl 40 Meq 150 /l 1,000 ml @ 75 mls/hr IV .[id number] [facility] Rx#: [id number] Fat Emulsion 20% 250 ml 63 231 21 In Empty Bag 1 bag @ 21 mls/hr IV DAILY@1800 [facility] Rx#:[id number] Magnesium Sulfate-D5w Pmx 100 1 gm In Dextrose/Water 1 100ml.bag @ 100 mls/hr IVPB Q1H [facility] Rx#: [id number] Piperacillin-Tazobactam 3 200 100 100 .375 gm In Sodium Chloride 0.9% 100 ml @ 25 mls/hr IVPB Q8HR [facility] Rx# :[id number] Intake, IV Titration 200 100 Amount Potassium Chloride 10 meq 100 In Water For Injection 1 100ml.bag @ 100 mls/hr IVPB Q1H [facility] Rx#: [id number] Sodium Ferric Gluconat- 100 100 Sucrose 125 mg In Sodium Chloride 0.9% 100 ml @ 100 mls/hr IVPB DAILY [facility] Rx#:[id number] Oral 180 TPN/PPN 715 605 330 Mvi, Adult No.4 with Vit 715 605 330 K 10 ml Trace (Conc-1Ml/ Dose) 1 ml Potassium Chloride 40 meq In Amino Acid 5%-D15w+Lytes*E* 1, 000 ml @ 55 mls/hr IV . [id number] [facility] Rx#:[id number] Output: Urine 1195 2710 700 Other: Voiding Method Indwelling Catheter Indwelling Catheter Indwelling Catheter - Exam GENERAL: Revealed a 68-year-old white female, frail looking, in no form of distress. HEENT: PERRLA, EOMI, no icterus. Head atraumatic normocephalic.. NECK: No neck masses no JVD, neck supple. CHEST: Diminished breath sounds at the bases no crackles or rhonchi or wheezes. CARDIOVASCULAR: Normal S1 and S2, no S3 gallop.. ABDOMEN: Soft, slightly tender, no rebound, no guarding, incision is clean.. MUSCULOSKELETAL: No clubbing edema or cyanosis. No deformities normal range of motion. NEUROLOGIC: Alert oriented 3, no gross focal deficits.. PSYCH: Normal mood affect and normal mental status examination.. SKIN: Good skin turgor, no rashes. - Labs CBC & Chem 7: 01/17/19 06:03 01/17/19 06:03 Labs: Abnormal Lab Results - Last 24 Hours (Table) 01/17/19 01/17/19 Range/Units 06:03 06:03 RBC 2.55 L (3.80-5.40) m/uL Hgb 9.2 L (11.4-16.0) gm/dL Hct 28.3 L (34.0-46.0) % MCV 111.0 H (80.0-100.0) fL MCH 35.9 H (25.0-35.0) pg RDW 23.8 H (11.5-15.5) % Macrocytosis Marked A Sodium 132 L (137-145) mmol/L Chloride 96 L (98-107) mmol/L Carbon Dioxide 33 H (22-30) mmol/L Creatinine 0.42 L (0.52-1.04) mg/dL Glucose 119 H (74-99) mg/dL Calcium 7.9 L (8.4-10.2) mg/dL Alkaline Phosphatase 32 L (38-126) U/L Total Protein 3.6 L (6.3-8.2) g/dL Albumin 1.8 L (3.5-5.0) g/dL Microbiology - Last 24 Hours (Table) 01/13/19 02:50 Urine Culture - Final Urine,Voided Inez glabrata Assessment and Plan Assessment: Impression: 1 small bowel obstruction, status post bowel resection and exploratory laparotom y postoperative day #5. 2 metastatic breast cancer, stage IV 3 small right-sided pleural effusion could be malignant considering her breast cancer. 4 chronic anemia 5 severe protein calorie malnutrition Recommendation: Continue present supportive care measures, continue TPN for nutritional support, gradually advance oral feedings as per surgery, continue antibiotics/Zosyn, continue incentive spirometry, we will continue to follow. Time with Patient: Less than 30
--- NOTE | 2019-01-17 14:26 | P.PN ---
Subjective Progress Note Date: 01/17/19 Principal diagnosis: SBO Patient was seen and examined. No acute events overnight. Patient reports pain at the site of incision in her abdomen, controlled with current pain medication. She has not passed gas yet. No bowel movement. Patient denies any chest pain, shortness of breath or palpitations. No nausea or vomiting. No fever or chills. Currently getting ice chips and popsicles. Objective - Vital Signs Vital signs: Vital Signs Temp 97.6 F 01/17/19 09:00 Pulse 75 01/17/19 13:00 Resp 11 L 01/17/19 13:00 BP 94/59 01/17/19 13:00 Pulse Ox 100 01/17/19 13:00 Intake & Output 01/16/19 01/17/19 01/17/19 18:59 06:59 18:59 Intake Total 1608 936 606 Output Total 1195 2710 800 Balance 257 -8919 -145 Weight 61.5 kg 58.7 kg Intake: IV 513 331 121 0.9% NaCl with KCl 40 Meq 150 /l 1,000 ml @ 75 mls/hr IV .[id number] [facility] Rx#: [id number] Fat Emulsion 20% 250 ml 63 231 21 In Empty Bag 1 bag @ 21 mls/hr IV DAILY@1800 [facility] Rx#:[id number] Magnesium Sulfate-D5w Pmx 100 1 gm In Dextrose/Water 1 100ml.bag @ 100 mls/hr IVPB Q1H [facility] Rx#: [id number] Piperacillin-Tazobactam 3 200 100 100 .375 gm In Sodium Chloride 0.9% 100 ml @ 25 mls/hr IVPB Q8HR [facility] Rx# :[id number] Intake, IV Titration 200 100 Amount Potassium Chloride 10 meq 100 In Water For Injection 1 100ml.bag @ 100 mls/hr IVPB Q1H [facility] Rx#: [id number] Sodium Ferric Gluconat- 100 100 Sucrose 125 mg In Sodium Chloride 0.9% 100 ml @ 100 mls/hr IVPB DAILY [facility] Rx#:[id number] Oral 180 TPN/PPN 715 605 385 Mvi, Adult No.4 with Vit 715 605 385 K 10 ml Trace (Conc-1Ml/ Dose) 1 ml Potassium Chloride 40 meq In Amino Acid 5%-D15w+Lytes*E* 1, 000 ml @ 55 mls/hr IV . [id number] [facility] Rx#:[id number] Output: Urine 1195 2710 800 Other: Voiding Method Indwelling Catheter Indwelling Catheter Indwelling Catheter - Exam General: [Appears ill], [no distress], [appears at stated age] Derm: [warm], [dry] Head: [atraumatic], [normocephalic], [symmetric] Eyes: [EOMI], [no lid lag], [anicteric sclera] Cardiovascular: [S1S2 reg], [no murmur], [positive DP pulse bilateral] Lungs: [CTA bilateral], [no rhonchi, no rales] , [no accessory muscle use] Abdominal: [soft], [no bowel sounds, tenderness at the side of midline incision, dressing clean dry and intact], [no guarding], [no appreciable organomegaly] Ext: [no gross muscle atrophy], [no edema], [no contractures] Neuro: [no focal neuro deficits] Psych: [Alert], [oriented], [appropriate affect] - Labs CBC & Chem 7: 01/17/19 06:03 01/17/19 06:03 Labs: Abnormal Lab Results - Last 24 Hours (Table) 01/17/19 01/17/19 Range/Units 06:03 06:03 RBC 2.55 L (3.80-5.40) m/uL Hgb 9.2 L (11.4-16.0) gm/dL Hct 28.3 L (34.0-46.0) % MCV 111.0 H (80.0-100.0) fL MCH 35.9 H (25.0-35.0) pg RDW 23.8 H (11.5-15.5) % Macrocytosis Marked A Sodium 132 L (137-145) mmol/L Chloride 96 L (98-107) mmol/L Carbon Dioxide 33 H (22-30) mmol/L Creatinine 0.42 L (0.52-1.04) mg/dL Glucose 119 H (74-99) mg/dL Calcium 7.9 L (8.4-10.2) mg/dL Alkaline Phosphatase 32 L (38-126) U/L Total Protein 3.6 L (6.3-8.2) g/dL Albumin 1.8 L (3.5-5.0) g/dL Microbiology - Last 24 Hours (Table) 01/13/19 02:50 Urine Culture - Final Urine,Voided Inez glabrata Assessment and Plan Assessment: Small bowel obstruction and volvulus status post resection on 01/12/2019 Right-sided pleural effusion with anasarca due to hypoalbuminemia Hyponatremia Macrocytic anemia Breast cancer, stage IV, metastasis to the abdomen Severe protein calorie malnutrition with BMI 21.5 Epidural removed. NG tube removed January 15. Plans: Continue TPN. Fentanyl, Dilaudid or morphine for pain control. Continue Zosyn. Zofran or Reglan as needed for nausea or vomiting. Follow surgery recommendations. O2 saturation maintaining. No plans on thoracentesis as per pulmonary recommendations. Albumin 1.8. Plans: O2 per NC to maintain O2 saturation greater than 92%. Diuresis as tolerated, watch for low BP. Sodium 132. Likely secondary to low solute load. Plans: Daily BMP. Continue TPN. MCV 111, hemoglobin 9.2. Current study shows anemia chronic disease. B12 and folate within normal limits. Plans: Daily CBC. Plans: Management as per oncology. Hold Xeloda post surgery, will need outpatien t follow up for re-initiation. [Pending clinical improvement per surgery. Needs to have bowel movement. Continue IV antibiotics. Prognosis is extremely guarded.]
[2019-01-17] MEDS ORDERED: [UNRECOGNIZED DRUG - REMARK] IV SCH ×6 (16:00)
[2019-01-17] MEDS: FAT EMULSION 20% 250 ML in EMPTY BAG 1 BAG IV SCH (17:59)
[2019-01-17] MEDS: ALPRAZolam 0.5 MG TAB PO PRN (22:10)
[2019-01-17] MEDS: ZOLPIDEM 5 MG TAB PO PRN (22:10)
[2019-01-18] MEDS: HYDROmorphone 1 MG/ML 1 ML SYRINGE IVP PRN ×3 (01:30→08:57)
[2019-01-18] MEDS: METOCLOPRAMIDE 5 MG/ML 2 ML VIAL IVP SCH ×4 (03:53→22:38)
[2019-01-18] MEDS: ONDANSETRON 4 MG/2 ML VIAL IVP SCH ×4 (05:19→23:44)
[2019-01-18 05:35] LABS: Anisocytosis Moderate; HCT 29.6 % (34.0-46.0); HGB 9.7 gm/dL (11.4-16.0); MCH 34.7 pg (25.0-35.0); MCHC 32.7 g/dL (31.0-37.0); MCV 106.2 fL (80.0-100.0); Macrocytosis Marked; Mean Platelet Volume 7.7; Platelet Count 354 k/uL (150-450); RBC 2.79 m/uL (3.80-5.40); RDW 23.4 % (11.5-15.5); WBC 9.2 k/uL (3.8-10.6)
[2019-01-18 05:48] LABS: Ionized Calcium 4.7 mg/dL (4.5-5.3)
[2019-01-18 06:03] LABS: Eosinophils # (M) 1.66 k/uL (0-0.7); Lymphocytes # (M) 1.84 k/uL (1.0-4.8); Monocytes # (M) 0.92 k/uL (0-1.0); Myelocytes # (M) 0.18 k/uL (0); Myelocytes % 2 %; Neutrophils % (M) 52 %; Nucleated Red Blood Cells 0 /100 WBC (0-0); Polychromasia Present; Total Cells Counted 200
[2019-01-18 06:10] LABS: African American GFR (CKD) >90 (>60 ml/min/1.73 sqM); Anion Gap 8 mmol/L; Blood Urea Nitrogen 10 mg/dL (7-17); Carbon Dioxide 25 mmol/L (22-30); Chloride 96 mmol/L (98-107); Glucose 114 mg/dL (74-99); Sodium 129 mmol/L (137-145)
[2019-01-18 06:17] LABS: Potassium 5.4 mmol/L (3.5-5.1)
[2019-01-18] MEDS: DOCUSATE 100 MG CAP PO SCH ×2 (08:56→22:38)
[2019-01-18] MEDS: ASPIRIN 81 MG PO SCH (08:56)
[2019-01-18] MEDS: PANTOPRAZOLE 40 MG/10 ML VIAL IVP SCH (08:56)
[2019-01-18] MEDS: TRIAMCINOLONE ACET 0.1% OINTMENT 15 GM TUBE TOPICAL SCH ×2 (08:56→22:44)
[2019-01-18] MEDS: HEPARIN SODIUM,PORCINE 5,000 UNIT/ML 1 ML VIAL SQ SCH ×3 (08:56→22:38)
[2019-01-18] MEDS: MVI, ADULT NO.4 WITH VIT K 10 ML, TRACE (CONC-1ML/DOSE) 1 ML, POTASSIUM CHLORIDE 10 MEQ... IV SCH ×6 (10:55)
[2019-01-18] MEDS: SODIUM CHLORIDE 0.9% 1,000 ML IV SCH (10:58)
[2019-01-18] MEDS: HYDROmorphone 2 MG/ML 1 ML SYRINGE IVP PRN ×5 (10:59→23:44)
--- NOTE | 2019-01-18 12:17 | P.PN ---
<Teresita Weaver A - Last Filed: 01/18/19 12:13> Subjective Progress Note Date: 01/18/19 CHIEF COMPLAINT: abdominal pain HISTORY OF PRESENT ILLNESS: Patient is status post exploratory laparotomy with small bowel resection 2, primary small bowel anastomosis 2, reduction of small bowel volvulus and internal hernia right lower quadrant. Postop day #6. Pain reports pain to abdomen this morning. Pain management has been consulted. She denies passing flatus but states "I feel rumbling in my belly". Denies nausea or vomiting. Tolerating ice chips and popsicles. Repeats feeling very weak. Was up to the chair yesterday. PHYSICAL EXAM: VITAL SIGNS: Reviewed GENERAL: Well-developed in no acute distress. HEENT: No sclera icterus. Extraocular movements grossly intact. Moist buccal mucosa. Head is atraumatic, normocephalic. Hears conversational speech. No nasal drainage. NECK: Supple without lymphadenopathy. CHEST: Non-labored respirations and equal bilateral excursions. CARDIOVASCULAR: Regular rate with regular rhythm. Palpable 2+ radial pulses. ABDOMEN: Soft. Nondistended. Mild tenderness. PREVENA to midline incision. MUSCULOSKELETAL: No clubbing, cyanosis or edema. NEUROLOGIC: No focal or lateralizing signs. Cranial nerves II through XII grossly intact. PSYCH: Appropriate affect. Alert and oriented to person, place and time. SKIN: Well perfused. Good skin turgor. ASSESSMENT: 1. Small bowel obstruction, status post exploratory laparotomy with small bowel resection 2, primary small bowel anastomosis 2, reduction of small bowel volvulus and internal hernia right lower quadrant 2. Metastatic breast cancer PLAN: 1. Begin clear liquid diet 2. Pain control. Continue current regimen. Pain management has been consulted. Await evaluation. 3. Incentive spirometry 4. Continue TPN 5. Activity as tolerated. Patient to be OOB, in the chair, and ambulatory today Nurse practitioner note has been reviewed by physician. Signing provider agrees with the documented findings, assessment, and plan of care. Objective - Vital Signs Vital signs: Vital Signs Temp 98.5 F 01/18/19 08:00 Pulse 80 01/18/19 11:00 Resp 15 01/18/19 11:00 BP 88/61 01/18/19 11:00 Pulse Ox 100 01/18/19 11:00 Intake & Output 01/17/19 01/18/19 01/18/19 18:59 06:59 18:59 Intake Total 1023 1067 220 Output Total 1285 1970 650 Balance -262 -903 -430 Weight 55.2 kg Intake: IV 263 352 220 Fat Emulsion 20% 250 ml 63 252 In Empty Bag 1 bag @ 21 mls/hr IV DAILY@1800 [facility] Rx#:[id number] Mvi, Adult No.4 with Vit 220 K 10 ml Trace (Conc-1Ml/ Dose) 1 ml Potassium Chloride 50 meq Sodium Chloride 2.5MEQ/ml Vial 20 meq Magnesium Sulfate gm 1.5 gm In Amino Acid 5 %-D15w+Lytes*E* 1,000 ml @ 55 mls/hr IV .Q19H3M [facility] Rx#:[id number] Piperacillin-Tazobactam 3 200 100 .375 gm In Sodium Chloride 0.9% 100 ml @ 25 mls/hr IVPB Q8HR [facility] Rx# :[id number] Intake, IV Titration 100 Amount Sodium Ferric Gluconat- 100 Sucrose 125 mg In Sodium Chloride 0.9% 100 ml @ 100 mls/hr IVPB DAILY [facility] Rx#:[id number] TPN/PPN 660 715 Mvi, Adult No.4 with Vit 660 715 K 10 ml Trace (Conc-1Ml/ Dose) 1 ml Potassium Chloride 40 meq In Amino Acid 5%-D15w+Lytes*E* 1, 000 ml @ 55 mls/hr IV . [id number] [facility] Rx#:[id number] Output: Urine 1285 1970 650 Other: Voiding Method Indwelling Catheter Indwelling Catheter Indwelling Catheter - Labs CBC & Chem 7: 01/18/19 05:06 01/18/19 05:06 Labs: Abnormal Lab Results - Last 24 Hours (Table) 01/18/19 01/18/19 Range/Units 05:06 05:06 RBC 2.79 L (3.80-5.40) m/uL Hgb 9.7 L (11.4-16.0) gm/dL Hct 29.6 L (34.0-46.0) % MCV 106.2 H (80.0-100.0) fL RDW 23.4 H (11.5-15.5) % Eosinophils # (Manual) 1.66 H (0-0.7) k/uL Myelocytes # (Manual) 0.18 H (0) k/uL Macrocytosis Marked A Sodium 129 L (137-145) mmol/L Potassium 5.4 H (3.5-5.1) mmol/L Chloride 96 L (98-107) mmol/L Creatinine 0.32 L (0.52-1.04) mg/dL Glucose 114 H (74-99) mg/dL Calcium 8.0 L (8.4-10.2) mg/dL <ShayanSalma N - Last Filed: 01/18/19 20:41> Subjective As above. She has been started with colace twice daily. She has been started on clears. Hold any suppositories at this time. Objective - Vital Signs Vital signs: Vital Signs Temp 98.1 F 01/18/19 16:21 Pulse 84 01/18/19 16:21 Resp 17 01/18/19 16:21 BP 106/71 01/18/19 16:21 Pulse Ox 96 01/18/19 16:21 Intake & Output 01/18/19 01/18/19 01/19/19 06:59 18:59 06:59 Intake Total 1067 325 Output Total 1970 1150 Balance -903 -825 Weight 55.2 kg Intake: IV 352 325 Fat Emulsion 20% 250 ml 252 In Empty Bag 1 bag @ 21 mls/hr IV DAILY@1800 [facility] Rx#:[id number] Mvi, Adult No.4 with Vit 275 K 10 ml Trace (Conc-1Ml/ Dose) 1 ml Potassium Chloride 50 meq Sodium Chloride 2.5MEQ/ml Vial 20 meq Magnesium Sulfate gm 1.5 gm In Amino Acid 5 %-D15w+Lytes*E* 1,000 ml @ 55 mls/hr IV .Q19H3M [facility] Rx#:[id number] Piperacillin-Tazobactam 3 100 .375 gm In Sodium Chloride 0.9% 100 ml @ 25 mls/hr IVPB Q8HR [facility] Rx# :[id number] Sodium Chloride 0.9% 1, 50 000 ml @ 50 mls/hr IV . Q20H [facility] Rx#:[id number] TPN/PPN 715 Mvi, Adult No.4 with Vit 715 K 10 ml Trace (Conc-1Ml/ Dose) 1 ml Potassium Chloride 40 meq In Amino Acid 5%-D15w+Lytes*E* 1, 000 ml @ 55 mls/hr IV . [id number] [facility] Rx#:[id number] Output: Urine 1970 1150 Other: Voiding Method Indwelling Catheter Indwelling Catheter # Voids 3 - Labs CBC & Chem 7: 01/18/19 05:06 01/18/19 05:06 Labs: Abnormal Lab Results - Last 24 Hours (Table) 01/18/19 01/18/19 01/18/19 Range/Units 05:06 05:06 17:30 RBC 2.79 L (3.80-5.40) m/uL Hgb 9.7 L (11.4-16.0) gm/dL Hct 29.6 L (34.0-46.0) % MCV 106.2 H (80.0-100.0) fL RDW 23.4 H (11.5-15.5) % Eosinophils # (Manual) 1.66 H (0-0.7) k/uL Myelocytes # (Manual) 0.18 H (0) k/uL Macrocytosis Marked A Sodium 129 L (137-145) mmol/L Potassium 5.4 H (3.5-5.1) mmol/L Chloride 96 L (98-107) mmol/L Creatinine 0.32 L (0.52-1.04) mg/dL Glucose 114 H (74-99) mg/dL POC Glucose (mg/dL) 113 H (75-99) mg/dL Calcium 8.0 L (8.4-10.2) mg/dL Assessment and Plan (1) Abdominal pain Current Visit: Yes Status: Chronic Priority: High Code(s): R10.9 - UNSPECIFIED ABDOMINAL PAIN SNOMED Code(s): 41426948 (2) Dehydration Current Visit: Yes Status: Acute Code(s): E86.0 - DEHYDRATION SNOMED Code(s): 18819013 (3) Intractable vomiting Current Visit: Yes Status: Acute Code(s): R11.10 - VOMITING, UNSPECIFIED SNOMED Code(s): 644001655 (4) Metastatic breast cancer Current Visit: Yes Status: Chronic Priority: High Code(s): C50.919 - MALIGNANT NEOPLASM OF UNSP SITE OF UNSPECIFIED FEMALE BREAST SNOMED Code(s): 492919080 (5) Small bowel obstruction Current Visit: No Status: Acute Code(s): K56.609 - UNSP INTESTNL OBST, UNSP TO PARTIAL VERSUS COMPLETE OBST SNOMED Code(s): 202557591 (6) Iron deficiency anemia Current Visit: Yes Status: Acute Code(s): D50.9 - IRON DEFICIENCY ANEMIA, UNSPECIFIED SNOMED Code(s): 42602350 (7) Abnormal abdominal CT scan Current Visit: Yes Status: Acute Code(s): R93.5 - ABN FINDINGS ON DX IMAGING OF ABD REGIONS, INC RETROPERITON SNOMED Code(s): 16469934872206246 (8) S/P small bowel resection Current Visit: Yes Status: Acute Code(s): Z90.49 - ACQUIRED ABSENCE OF OTHER SPECIFIED PARTS OF DIGESTIVE TRACT SNOMED Code(s): 622901600251758 (9) Severe protein-calorie malnutrition Current Visit: Yes Status: Acute Code(s): E43 - UNSPECIFIED SEVERE PROTEIN- CALORIE MALNUTRITION SNOMED Code(s): 596395526
--- NOTE | 2019-01-18 12:44 | P.PN ---
Subjective Progress Note Date: 01/18/19 Principal diagnosis: Acute small bowel obstruction, status post exploratory laparotomy and small bowel resection, postoperative day #6 This is a 68-year-old female patient with metastatic breast cancer. The patient is in the hospital because of a bowel obstruction. The patient hasn't been able to eat for more than 10 days. She's been hospitalized for almost 6 days where she was unable to eat and she hasn't been able to pass gas or any bowel movement. NG tube is in place and output remains considerably high. CAT scan of the abdomen and pelvis was ordered and it showed small bowel obstruction and there is concern for pneumatosis intestinalis. It was also noted that the patient has a small to moderate-sized right-sided pleural effusion. In terms of her breast cancer, the patient was diagnosed several years ago and she has received most of her care through [facility]. She underwent a initial lumpectomy and radiation therapy. Following that she received a total of 5 years of Arimidex treatment. Around 2 years ago, her cancer recurred and was metastatic and she was found on systemic chemotherapy with doxorubicin and Cytoxan and the patient was subsequently placed on oral Xeloda. The patient also has had several abdominal surgeries. She also reports a previous bowel obstruction. This point in time the patient is awake and alert. She is a bit w eak. She has been able to eat and she is obviously lacking behind on her nutrition. Her albumin level has been down to 2.0. Her CA 2729 level was up to 71 with a CVA 15 3 level of 629. Her total serum iron has been also low at 23. Her current hemoglobin is at 8.7 her white cell count of 4.5. The patient will be taken to the operating room today for an expert laparotomy and lysis of adhesions. There is history of metastases to her abdomen and the metastatic disease could have been also contributing to her bowel obstruction. As far as the pleural effusion, this has not been been drained in the past. The lung bases based on the CAT scan of the abdomen shows no evidence of any metastatic or other poor disease or another if his or lesions. On 01/13/2019 I'm seeing this patient in the follow-up. The patient is in the intensive care unit. The patient has undergone her surgery. Specifically, the patient underwent exploratory laparotomy, small bowel resection, mid jejunal resection and proximal ileal resection with primary anastomosis. There was reduction of a small bowel volvulus and internal hernia. Surgery went well and the patient was brought into the intensive care unit following that. She received a total of 2 L of IV fluids postop. NG tube still in place. Bowel s ounds are quite hypoactive. Surgical site is dry clean and intact. She is awake and alert. She is not having any respiratory distress. No cough sputum production. No issues with pain and the patient has a epidural Dilaudid in place for pain control. The hemoglobin today is at 10.4 with a white cell count of 6.6. Serum bicarb is 18 with a creatinine of 0.48. On 01/14/2019 I'm seeing this patient for a follow-up. The patient is looking assess the same compared to yesterday. She is still having abdominal pain. Epidural is running at 4 mg an hour Dilaudid. No significant hypotension. Additional pain control was being given by a fentanyl patch a total of 37.5 g subcu every 72 hours. The patient is on TPN for nutritional support. The patient remains nothing by mouth. NG tube is in place. Antibiotic coverage remains a combination of Zosyn and Flagyl. Bowel sounds are absent. The incision over the anterior abdominal wall is dry clean and intact. The patient otherwise is not having any respiratory distress. We evaluated the patient has a right-sided pleural effusion which we are monitoring for the time being. There is a drop in hemoglobin which is expected after surgery. NG tube is in place. On 01/15/2019 the patient is still recovering from surgery. She is postop day #3. She does have some limited bowel sounds. No significant activity. Output from the NG tube has been 7 50 mL over the past 24 hours. The patient is otherwise doing well. She is awake and alert pH is complaining of some increased edema both in the upper and lower extremities. She is on TPN for nutritional support. She has on epidural Dilaudid for pain control. She is on IV antibiotics with Zosyn and Flagyl. She is using incentive spirometer. NG tube is in place. No other issues for now. Her condition essentially the same compared to yesterday. Electrodes are being replaced regularly. On 01/16/2019, the patient is still not passing any gas or flatus or bowel movement. The patient is laying comfortably in bed. She has developed increased edema probably related to ongoing TPN and fluids. She has also developed diffuse anasarca. She is taking Dilaudid for pain control. No nausea. No emesis. She is tired and weak. No significant shortness of breath knowing that she has a right-sided pleural effusion. Surgical site is dry clean and intact. No other significant events otherwise for now. NG tube still in place. She is tolerating the NG tube quite well and output from the NG tube has been 200 mL over the past 24 hours. Based on that the NG tube was removed yesterday. Her weight is up to 61.5 KG's. Net fluid balance is +2.8 L over the past 24 hours. Patient's hemoglobin is down to 8.7. The patient's serum albumin is down to 1.68 she is receiving TPN for nutritional support. Amylase and lipase are within normal limits. Potassium level has been replaced. Reevaluated today on 01/17/2019, patient remains in the ICU, continues to have some abdominal discomfort this morning, tolerating ice chips and popsicles, denies passing any flatus or having any bowel movements. Hemoglobin is 9.2 WBC count is 7.8 lites are relatively normal renal profile is normal Reevaluated today on 01/18/2019, remains in the ICU, however I plan to transfer the patient to a surgical floor today. Patient continues to have no bowel movements, she seems to be tolerating again her ice chips and popsicles without any difficulty. She is hemodynamically stable, and overall she feels very comfortable. Patient denies any nausea or vomiting, labs from today were all reviewed. Remains on TPN. Objective - Vital Signs Vital signs: Vital Signs Temp 98.1 F 01/18/19 12:00 Pulse 91 01/18/19 12:00 Resp 18 01/18/19 12:00 BP 88/61 01/18/19 12:00 Pulse Ox 100 01/18/19 12:00 Intake & Output 01/17/19 01/18/19 01/18/19 18:59 06:59 18:59 Intake Total 1023 1067 220 Output Total 1285 1970 650 Balance -262 -903 -430 Weight 55.2 kg Intake: IV 263 352 220 Fat Emulsion 20% 250 ml 63 252 In Empty Bag 1 bag @ 21 mls/hr IV DAILY@1800 [facility] Rx#:[id number] Mvi, Adult No.4 with Vit 220 K 10 ml Trace (Conc-1Ml/ Dose) 1 ml Potassium Chloride 50 meq Sodium Chloride 2.5MEQ/ml Vial 20 meq Magnesium Sulfate gm 1.5 gm In Amino Acid 5 %-D15w+Lytes*E* 1,000 ml @ 55 mls/hr IV .Q19H3M [facility] Rx#:[id number] Piperacillin-Tazobactam 3 200 100 .375 gm In Sodium Chloride 0.9% 100 ml @ 25 mls/hr IVPB Q8HR [facility] Rx# :[id number] Intake, IV Titration 100 Amount Sodium Ferric Gluconat- 100 Sucrose 125 mg In Sodium Chloride 0.9% 100 ml @ 100 mls/hr IVPB DAILY [facility] Rx#:[id number] TPN/PPN 660 715 Mvi, Adult No.4 with Vit 660 715 K 10 ml Trace (Conc-1Ml/ Dose) 1 ml Potassium Chloride 40 meq In Amino Acid 5%-D15w+Lytes*E* 1, 000 ml @ 55 mls/hr IV . [id number] [facility] Rx#:[id number] Output: Urine 1285 1970 650 Other: Voiding Method Indwelling Catheter Indwelling Catheter Indwelling Catheter - Exam GENERAL: Revealed a 68-year-old white female, frail looking, in no form of distress. HEENT: PERRLA, EOMI, no icterus. Head atraumatic normocephalic.. NECK: No neck masses no JVD, neck supple. CHEST: Clear breath sound bilaterally no crackles or rhonchi or wheezes. CARDIOVASCULAR: Normal S1 and S2, no S3 gallop.. ABDOMEN: Soft, slightly tender, no rebound, no guarding, incision is clean.. MUSCULOSKELETAL: No clubbing edema or cyanosis. No deformities normal range of motion. NEUROLOGIC: Alert oriented 3, no gross focal deficits.. PSYCH: Normal mood affect and normal mental status examination.. SKIN: Good skin turgor, no rashes. - Labs CBC & Chem 7: 01/18/19 05:06 01/18/19 05:06 Labs: Abnormal Lab Results - Last 24 Hours (Table) 01/18/19 01/18/19 Range/Units 05:06 05:06 RBC 2.79 L (3.80-5.40) m/uL Hgb 9.7 L (11.4-16.0) gm/dL Hct 29.6 L (34.0-46.0) % MCV 106.2 H (80.0-100.0) fL RDW 23.4 H (11.5-15.5) % Eosinophils # (Manual) 1.66 H (0-0.7) k/uL Myelocytes # (Manual) 0.18 H (0) k/uL Macrocytosis Marked A Sodium 129 L (137-145) mmol/L Potassium 5.4 H (3.5-5.1) mmol/L Chloride 96 L (98-107) mmol/L Creatinine 0.32 L (0.52-1.04) mg/dL Glucose 114 H (74-99) mg/dL Calcium 8.0 L (8.4-10.2) mg/dL Assessment and Plan Assessment: Impression: 1 small bowel obstruction, status post bowel resection and exploratory laparotomy postoperative day #6 2 metastatic breast cancer, stage IV 3 small right-sided pleural effusion could be malignant considering her breast cancer. 4 chronic anemia 5 severe protein calorie malnutrition Recommendation: Continue present measures, Continue TPN Continue ice chips and popsicles Continue antibiotics Continue incentive spirometry Transfer patient out of the ICU to a regular medical floor today. Time with Patient: Less than 30
--- NOTE | 2019-01-18 13:00 | P.PN ---
Subjective Progress Note Date: 01/18/19 Principal diagnosis: Pain related to malignancy. Metastatic breast cancer In f/u today pt is working with nursing to get incision pain managed, she overall feels ok, denies flatus, swelling, , cough or bleeding Objective - Vital Signs Vital signs: Vital Signs Temp 98.1 F 01/18/19 12:00 Pulse 91 01/18/19 12:00 Resp 18 01/18/19 12:00 BP 88/61 01/18/19 12:00 Pulse Ox 100 01/18/19 12:00 Intake & Output 01/17/19 01/18/19 01/18/19 18:59 06:59 18:59 Intake Total 1023 1067 220 Output Total 1285 1970 650 Balance -616 -705 -075 Weight 55.2 kg Intake: IV 263 352 220 Fat Emulsion 20% 250 ml 63 252 In Empty Bag 1 bag @ 21 mls/hr IV DAILY@1800 [facility] Rx#:[id number] Mvi, Adult No.4 with Vit 220 K 10 ml Trace (Conc-1Ml/ Dose) 1 ml Potassium Chloride 50 meq Sodium Chloride 2.5MEQ/ml Vial 20 meq Magnesium Sulfate gm 1.5 gm In Amino Acid 5 %-D15w+Lytes*E* 1,000 ml @ 55 mls/hr IV .Q19H3M [facility] Rx#:[id number] Piperacillin-Tazobactam 3 200 100 .375 gm In Sodium Chloride 0.9% 100 ml @ 25 mls/hr IVPB Q8HR [facility] Rx# :[id number] Intake, IV Titration 100 Amount Sodium Ferric Gluconat- 100 Sucrose 125 mg In Sodium Chloride 0.9% 100 ml @ 100 mls/hr IVPB DAILY [facility] Rx#:[id number] TPN/PPN 660 715 Mvi, Adult No.4 with Vit 660 715 K 10 ml Trace (Conc-1Ml/ Dose) 1 ml Potassium Chloride 40 meq In Amino Acid 5%-D15w+Lytes*E* 1, 000 ml @ 55 mls/hr IV . [id number] [facility] Rx#:[id number] Output: Urine 1285 1970 650 Other: Voiding Method Indwelling Catheter Indwelling Catheter Indwelling Catheter - Constitutional General appearance: Present: cooperative, no acute distress, thin - EENT Eyes: Present: anicteric sclerae, EOMI ENT: Present: hearing grossly normal - Respiratory Respiratory: bilateral: CTA - Cardiovascular Rhythm: regular Heart sounds: normal: S1, S2 Abnormal Heart Sounds: Absent: systolic murmur, diastolic murmur, rub, S3 Gallop, S4 Gallop, click, other - Peripheral edema leg Peripheral Edema: bilateral: None - Gastrointestinal Gastrointestinal Comment(s): midline dressing is intact, no bruising noted surrounding the dressing, abd is soft and non-tender in the areas lateral to the incision. 1 BS noted in 1 min - Integumentary Integumentary: Present: normal - Neurologic Neurologic: Present: CNII-XII intact - Musculoskeletal Musculoskeletal: Present: generalized weakness, strength equal bilaterally - Psychiatric Psychiatric: Present: A&O x's 3, appropriate affect, intact judgment & insight - Labs CBC & Chem 7: 01/18/19 05:06 01/18/19 05:06 Labs: Abnormal Lab Results - Last 24 Hours (Table) 01/18/19 01/18/19 Range/Units 05:06 05:06 RBC 2.79 L (3.80-5.40) m/uL Hgb 9.7 L (11.4-16.0) gm/dL Hct 29.6 L (34.0-46.0) % MCV 106.2 H (80.0-100.0) fL RDW 23.4 H (11.5-15.5) % Eosinophils # (Manual) 1.66 H (0-0.7) k/uL Myelocytes # (Manual) 0.18 H (0) k/uL Macrocytosis Marked A Sodium 129 L (137-145) mmol/L Potassium 5.4 H (3.5-5.1) mmol/L Chloride 96 L (98-107) mmol/L Creatinine 0.32 L (0.52-1.04) mg/dL Glucose 114 H (74-99) mg/dL Calcium 8.0 L (8.4-10.2) mg/dL Assessment and Plan (1) Cancer related pain Narrative/Plan: Anticipate some pain relief after recovery from abd surgery with bowel resection, path positive for breast cancer. Cont with surgical pain mgmt and titrate to tolerance per Surgeon. Current Visit: Yes Status: Acute Priority: High Code(s): G89.3 - NEOPLASM RELATED PAIN (ACUTE) (CHRONIC) SNOMED Code(s): 66870989801236 (2) Ileus Narrative/Plan: Secondary to breast cancer. Recommend keeping stool as soft as possible and closely monitor bowel movements. Current Visit: Yes Status: Chronic Priority: High Code(s): K56.7 - ILEUS, UNSPECIFIED SNOMED Code(s): 555223497 (3) Abdominal pain Narrative/Plan: Initial c/o pain secondary to ileus and malignancy within the abdomen, now from surgical incision-better then initial c/o. Current Visit: Yes Status: Chronic Priority: High Code(s): R10.9 - UNSPECIFIED ABDOMINAL PAIN SNOMED Code(s): 99995110 (4) Metastatic breast cancer Narrative/Plan: Pending documents for transfer of care from Dr. Clarke at [facility] Hold xeloda for now-anticipate discontinuation but pending report review from previous Oncologist Current Visit: Yes Status: Chronic Priority: High Code(s): C50.919 - MALIGNANT NEOPLASM OF UNSP SITE OF UNSPECIFIED FEMALE BREAST SNOMED Code(s): 746739004
--- NOTE | 2019-01-18 15:46 | P.PN ---
Subjective Progress Note Date: 01/18/19 Principal diagnosis: SBO patient was seen and examined. No acute events overnight. Patient reports no overall changes in her condition since yesterday. Still continues to complain of abdominal pain at the site of incision, well controlled with current pain medication. No bowel movement. Not passing gas. Tolerating clear liquids well. Denies any nausea or vomiting. Denies any chest pain, shortness of breath or palpitations. No fever or chills. Objective - Vital Signs Vital signs: Vital Signs Temp 98.1 F 01/18/19 12:00 Pulse 91 01/18/19 12:00 Resp 18 01/18/19 12:00 BP 88/61 01/18/19 12:00 Pulse Ox 100 01/18/19 12:00 Intake & Output 01/17/19 01/18/19 01/18/19 18:59 06:59 18:59 Intake Total 1023 1067 325 Output Total 1285 1970 900 Balance -262 -903 -575 Weight 55.2 kg Intake: IV 263 352 325 Fat Emulsion 20% 250 ml 63 252 In Empty Bag 1 bag @ 21 mls/hr IV DAILY@1800 [facility] Rx#:[id number] Mvi, Adult No.4 with Vit 275 K 10 ml Trace (Conc-1Ml/ Dose) 1 ml Potassium Chloride 50 meq Sodium Chloride 2.5MEQ/ml Vial 20 meq Magnesium Sulfate gm 1.5 gm In Amino Acid 5 %-D15w+Lytes*E* 1,000 ml @ 55 mls/hr IV .Q19H3M [facility] Rx#:[id number] Piperacillin-Tazobactam 3 200 100 .375 gm In Sodium Chloride 0.9% 100 ml @ 25 mls/hr IVPB Q8HR [facility] Rx# :[id number] Sodium Chloride 0.9% 1, 50 000 ml @ 50 mls/hr IV . Q20H [facility] Rx#:[id number] Intake, IV Titration 100 Amount Sodium Ferric Gluconat- 100 Sucrose 125 mg In Sodium Chloride 0.9% 100 ml @ 100 mls/hr IVPB DAILY [facility] Rx#:[id number] TPN/PPN 660 715 Mvi, Adult No.4 with Vit 660 715 K 10 ml Trace (Conc-1Ml/ Dose) 1 ml Potassium Chloride 40 meq In Amino Acid 5%-D15w+Lytes*E* 1, 000 ml @ 55 mls/hr IV . [id number] [facility] Rx#:[id number] Output: Urine 1285 1970 900 Other: Voiding Method Indwelling Catheter Indwelling Catheter Indwelling Catheter - Exam General: [Appears ill], [no distress], [appears at stated age] Derm: [warm], [dry] Head: [atraumatic], [normocephalic], [symmetric] Eyes: [EOMI], [no lid lag], [anicteric sclera] Cardiovascular: [S1S2 reg], [no murmur], [positive DP pulse bilateral] Lungs: [CTA bilateral], [no rhonchi, no rales] , [no accessory muscle use] Abdominal: [soft], [no bowel sounds, tenderness at the side of midline incision, dressing clean dry and intact], [no guarding], [no appreciable organomegaly] Ext: [no gross muscle atrophy], [no edema], [no contractures] Neuro: [no focal neuro deficits] Psych: [Alert], [oriented], [appropriate affect] - Labs CBC & Chem 7: 01/18/19 05:06 01/18/19 05:06 Labs: Abnormal Lab Results - Last 24 Hours (Table) 01/18/19 01/18/19 Range/Units 05:06 05:06 RBC 2.79 L (3.80-5.40) m/uL Hgb 9.7 L (11.4-16.0) gm/dL Hct 29.6 L (34.0-46.0) % MCV 106.2 H (80.0-100.0) fL RDW 23.4 H (11.5-15.5) % Eosinophils # (Manual) 1.66 H (0-0.7) k/uL Myelocytes # (Manual) 0.18 H (0) k/uL Macrocytosis Marked A Sodium 129 L (137-145) mmol/L Potassium 5.4 H (3.5-5.1) mmol/L Chloride 96 L (98-107) mmol/L Creatinine 0.32 L (0.52-1.04) mg/dL Glucose 114 H (74-99) mg/dL Calcium 8.0 L (8.4-10.2) mg/dL Assessment and Plan Assessment: Small bowel obstruction and volvulus status post resection on 01/12/2019 Hyperkalemia Right-sided pleural effusion with anasarca due to hypoalbuminemia Hyponatremia Macrocytic anemia Breast cancer, stage IV, metastasis to the abdomen Severe protein calorie malnutrition with BMI 21.5 POD 6. NG tube removed January 15. Plans: Continue TPN. Fentanyl, Dilaudid or m orphine for pain control. Continue Zosyn. Zofran or Reglan as needed for nausea or vomiting. Follow surgery recommendations. Potassium 5.4. Hemolyzed. Plans: Repeat BMP tomorrow morning. O2 saturation maintaining. No plans on thoracentesis as per pulmonary recommendations. Albumin 1.8. Plans: O2 per NC to maintain O2 saturation greater than 92%. Diuresis as tolerated, watch for low BP. Sodium 129. Likely secondary to low solute load. Plans: Daily BMP. Continue TPN. Follow Nephrology recommendations. MCV 111, hemoglobin 9.2. Iron studies shows anemia chronic disease. B12 and f olate within normal limits. Plans: Daily CBC. Transfuse if Hemoglobin less than 7. Plans: Management as per oncology. Hold Xeloda post surgery, will need outpatient follow up for re-initiation. [Pending clinical improvement per surgery. Needs to have bowel movement. Continue IV antibiotics. Prognosis is extremely guarded.]
[2019-01-18] MEDS: PIPERACILLIN-TAZOBACTAM 3.375 GM in SODIUM CHLORIDE 0.9% 100 ML IVPB SCH (17:16)
[2019-01-18 17:43] LABS: Glucose,Whole Blood 113 mg/dL (75-99)
[2019-01-18] MEDS: FAT EMULSION 20% 250 ML in EMPTY BAG 1 BAG IV SCH (18:29)
[2019-01-18] MEDS: ALPRAZolam 0.5 MG TAB PO PRN (22:38)
[2019-01-18] MEDS: ZOLPIDEM 5 MG TAB PO PRN (22:38)
[2019-01-18 23:48] LABS: Glucose,Whole Blood 133 mg/dL (75-99)
[2019-01-19] MEDS: HYDROmorphone 2 MG/ML 1 ML SYRINGE IVP PRN ×3 (03:17→09:48)
[2019-01-19] MEDS: METOCLOPRAMIDE 5 MG/ML 2 ML VIAL IVP SCH ×4 (03:17→20:46)
[2019-01-19] MEDS: MVI, ADULT NO.4 WITH VIT K 10 ML, TRACE (CONC-1ML/DOSE) 1 ML, POTASSIUM CHLORIDE 10 MEQ... IV SCH ×6 (06:09)
[2019-01-19] MEDS: ONDANSETRON 4 MG/2 ML VIAL IVP SCH ×3 (06:10→17:05)
[2019-01-19] MEDS: SODIUM CHLORIDE 0.9% 1,000 ML IV SCH ×2 (06:10→09:53)
[2019-01-19 06:32] LABS: Glucose,Whole Blood 112 mg/dL (75-99)
[2019-01-19 08:20] LABS: African American GFR (CKD) >90 (>60 ml/min/1.73 sqM); Anion Gap 3 mmol/L; Blood Urea Nitrogen 10 mg/dL (7-17); Calcium 8.3 mg/dL (8.4-10.2); Carbon Dioxide 30 mmol/L (22-30); Chloride 98 mmol/L (98-107); Glucose 112 mg/dL (74-99); Magnesium 1.8 mg/dL (1.6-2.3); Potassium 4.3 mmol/L (3.5-5.1); Sodium 131 mmol/L (137-145)
[2019-01-19] MEDS: HEPARIN SODIUM,PORCINE 5,000 UNIT/ML 1 ML VIAL SQ SCH ×2 (09:18→17:05)
[2019-01-19] MEDS: ASPIRIN 81 MG PO SCH (09:19)
[2019-01-19] MEDS: DOCUSATE 100 MG CAP PO SCH ×2 (09:19→20:46)
[2019-01-19] MEDS: PANTOPRAZOLE 40 MG/10 ML VIAL IVP SCH (09:19)
[2019-01-19] MEDS ORDERED: BISACODYL 10 MG SUPP RECTAL STA (09:30)
--- NOTE | 2019-01-19 10:39 | P.PN ---
Subjective Progress Note Date: 01/19/19 Principal diagnosis: SBO Patient was seen and examined. No acute events overnight. No bowel movement or passing gas this morning. Tolerating clear liquid diet well without nausea or vomiting. She denies chest pain, shortness of breath or palpitations. Objective - Vital Signs Vital signs: Vital Signs Temp 98.2 F 01/19/19 05:24 Pulse 85 01/19/19 08:30 Resp 16 01/19/19 08:30 BP 100/62 01/19/19 05:24 Pulse Ox 95 01/19/19 05:24 Intake & Output 01/18/19 01/19/19 01/19/19 18:59 06:59 18:59 Intake Total 325 1535 Output Total 1150 Balance -825 1535 Weight 55.5 kg Intake: IV 325 504 Fat Emulsion 20% 250 ml 84 In Empty Bag 1 bag @ 21 mls/hr IV DAILY@1800 [facility] Rx#:[id number] Mvi, Adult No.4 with Vit 275 220 K 10 ml Trace (Conc-1Ml/ Dose) 1 ml Potassium Chloride 50 meq Sodium Chloride 2.5MEQ/ml Vial 20 meq Magnesium Sulfate gm 1.5 gm In Amino Acid 5 %-D15w+Lytes*E* 1,000 ml @ 55 mls/hr IV .Q19H3M [facility] Rx#:[id number] Sodium Chloride 0.9% 1, 50 200 000 ml @ 50 mls/hr IV . Q20H [facility] Rx#:[id number] Intake, IV Titration 1031 Amount Mvi, Adult No.4 with Vit 1031 K 10 ml Trace (Conc-1Ml/ Dose) 1 ml Potassium Chloride 10 meq Sodium Chloride 2.5MEQ/ml Vial 30 meq Magnesium Sulfate gm 1.5 gm In Amino Acid 5 %-D15w+Lytes*E* 1,000 ml @ 55 mls/hr IV .[id number] [facility] Rx#:[id number] Output: Urine 1150 Other: Voiding Method Bedpan Bedpan Bedpan # Voids 3 2 - Exam General: [Appears ill], [no distress], [appears at stated age] Derm: [warm], [dry] Head: [atraumatic], [normocephalic], [symmetric] Eyes: [EOMI], [no lid lag], [anicteric sclera] Cardiovascular: [S1S2 reg], [no murmur], [positive DP pulse bilateral] Lungs: [CTA bilateral], [no rhonchi, no rales] , [no accessory muscle use] Abdominal: [soft], [no bowel sounds, tenderness at the side of midline incision, dressing clean dry and intact], [no guarding], [no appreciable organomegaly] Ext: [no gross muscle atrophy], [no edema], [no contractures] Neuro: [no focal neuro deficits] Psych: [Alert], [oriented], [appropriate affect] - Labs CBC & Chem 7: 01/18/19 05:06 01/19/19 07:26 Labs: Abnormal Lab Results - Last 24 Hours (Table) 01/18/19 01/18/19 01/19/19 Range/Units 17:30 23:46 06:30 Sodium (137-145) mmol/L Creatinine (0.52-1.04) mg/dL Glucose (74-99) mg/dL POC Glucose (mg/dL) 113 H 133 H 112 H (75-99) mg/dL Calcium (8.4-10.2) mg/dL 01/19/19 Range/Units 07:26 Sodium 131 L (137-145) mmol/L Creatinine 0.39 L (0.52-1.04) mg/dL Glucose 112 H (74-99) mg/dL POC Glucose (mg/dL) (75-99) mg/dL Calcium 8.3 L (8.4-10.2) mg/dL Assessment and Plan Assessment: Small bowel obstruction and volvulus status post resection on 01/12/2019 Hyperkalemia Right-sided pleural effusion with anasarca due to hypoalbuminemia Hyponatremia Macrocytic anemia Breast cancer, stage IV, metastasis to the abdomen Severe protein calorie malnutrition with BMI 21.5 POD 7. NG tube removed January 15. Plans: Continue TPN. Fentanyl, Dilaudid or morphine for pain control (DC Dilaudid as per surgery). Continue Zosyn. Zofran or Reglan as needed for nausea or vomiting. Dulcolax per rectum today to encourage bowel movement. Follow surgery recommendations. Potassium 5.4, hemolyzed on 01/18, within normal limits today. Plans: Resolved. O2 saturation maintaining. No plans on thoracentesis as per pulmonary recommendations. Albumin 1.8. Plans: O2 per NC to maintain O2 saturation greater than 92%. Diuresis as tolerated, watch for low BP. Sodium 129 to 131. Likely secondary to low solute load. Plans: Daily BMP. Continue TPN. Continue NS at 50 cc/h. Obtain urine and serum osmolality along with [place]. Follow Nephrology recommendations. MCV 106.2, hemoglobin 9.7. Iron studies shows anemia chronic disease. B12 and folate within normal limits. Plans: Daily CBC. Transfuse if Hemoglobin less than 7. Plans: Management as per oncology. Hold Xeloda post surgery, will need outpatient follow up for re-initiation. [Pending clinical improvement per surgery. Needs to have bowel movement. Continue IV antibiotics. Discussed case with case management and Dr. Gill regarding hyponatremia and need for rehab on DC. Prognosis is extremely guarded.]
[2019-01-19] MEDS: MAGNESIUM SULFATE-D5W PMX 1 GM in DEXTROSE/WATER 1 100ML.BAG IVPB SCH ×2 (11:09→15:17)
[2019-01-19] MEDS: TRIAMCINOLONE ACET 0.1% OINTMENT 15 GM TUBE TOPICAL SCH ×2 (11:09→20:46)
[2019-01-19 11:24] LABS: Glucose,Whole Blood 101 mg/dL (75-99)
--- NOTE | 2019-01-19 11:39 | P.NPCON ---
History of Present Illness - Reason for Consult hyponatremia - History of Present Illness Reason for consultation: Hyponatremia History of present illness: Patient is a 68-year-old female seen in renal consultation for hyponatremia. Patient's sodium level this admission has been in the range of 129-134. Patient came to the hospital on January 06 due to abdominal pain and nausea and vomiting. CAT scan done with IV contrast on January 11 revealed small bowel obstruction. She underwent exploratory laparotomy with small bowel resection as well as reduction of small bowel volvulus an internal hernia on January 12. She is currently maintained on normal saline at 50 mL an hour along with TPN. Additionally she receives lipids during the night. Patient also has history of stage IV breast cancer. She is tolerating clear diet. No vomiting. No diarrhea. Patient states that she has a ureteral stent on the right side which was placed earlier this year. She follows with a urologist out of [place]. Renal function is currently at baseline. No history of diabetes. No significant pain at this time. No edema. She has been waiting. Patient states her brother is currently on hemodialysis but is unsure of the etiology of his kidney disease. Vital signs are stable. General: The patient appeared well nourished and normally developed. HEENT: Head exam is unremarkable. Neck is without jugular venous distension. LUNGS: Lungs are clear to auscultation and percussion. Breath sounds decreased. HEART: Rate and Rhythm are regular. First and second heart sounds normal. No murmurs, rubs or gallops. ABDOMEN: Bowel sounds decreased. EXTREMITITES: No clubbing, cyanosis, or edema. Past Medical History Past Medical History: Cancer Additional Past Medical History / Comment(s): Metastatic breast cancer, details discussed above and the patient was receiving oral Xeloda History of Any Multi-Drug Resistant Organisms: None Reported Past Surgical History: Appendectomy, Cholecystectomy, Hysterectomy Additional Past Surgical History / Comment(s): Lumpectomy involving the left breast, previous history of abdominal surgery for small bowel obstruction Past Anesthesia/Blood Transfusion Reactions: No Reported Reaction Past Psychological History: No Psychological Hx Reported Smoking Status: Never smoker Past Alcohol Use History: None Reported Past Drug Use History: None Reported - Past Family History Father Family Medical History: Cancer Mother Family Medical History: Cancer Medications and Allergies Home Medications Medication Instructions Recorded Confirmed Type ALPRAZolam [Xanax] 0.5 mg PO TID PRN 01/02/19 01/06/19 History Aspirin EC [Ecotrin Low Dose] 81 mg PO DAILY 01/02/19 01/06/19 History Capecitabine [Xeloda] 500 mg PO TID 01/02/19 01/06/19 History Metoclopramide HCl [Reglan] 5 mg PO BID 01/02/19 01/06/19 History Morphine Sulfate Ir [MSIR] 15 mg PO BID PRN 01/02/19 01/06/19 History Zolpidem Tartrate [Ambien Cr] 12.5 mg PO HS 01/02/19 01/06/19 History Docusate [Colace] 100 mg PO BID 01/06/19 01/06/19 History Mirabegron [Myrbetriq] 50 mg PO DAILY 01/06/19 01/06/19 History Allergies Allergy/AdvReac Type Severity Reaction Status Date / Time No Known Allergies Allergy Verified 01/06/19 17:16 Physical Exam Vitals: Vital Signs Temp Pulse Pulse Resp BP BP BP 01/19/19 08:30 85 16 01/19/19 05:24 98.2 F 85 16 100/62 01/18/19 20:00 98.0 F 86 16 112/73 01/18/19 16:35 85 16 01/18/19 16:21 98.1 F 84 17 106/71 01/18/19 12:00 98.1 F 91 18 88/61 Pulse Ox 01/19/19 08:30 01/19/19 05:24 95 01/18/19 20:00 97 01/18/19 16:35 01/18/19 16:21 96 01/18/19 12:00 100 Intake and Output 01/18/19 01/19/19 01/19/19 22:59 06:59 14:59 Intake Total 504 1031 Output Total 250 Balance 254 1031 Intake: IV 504 Fat Emulsion 20% 250 ml 84 In Empty Bag 1 bag @ 21 mls/hr IV DAILY@1800 [facility] Rx#:[id number] Mvi, Adult No.4 with Vit 220 K 10 ml Trace (Conc-1Ml/ Dose) 1 ml Potassium Chloride 50 meq Sodium Chloride 2.5MEQ/ml Vial 20 meq Magnesium Sulfate gm 1.5 gm In Amino Acid 5 %-D15w+Lytes*E* 1,000 ml @ 55 mls/hr IV .Q19H3M [facility] Rx#:[id number] Sodium Chloride 0.9% 1, 200 000 ml @ 50 mls/hr IV . Q20H [facility] Rx#:[id number] Intake, IV Titration 1031 Amount Mvi, Adult No.4 with Vit 1031 K 10 ml Trace (Conc-1Ml/ Dose) 1 ml Potassium Chloride 10 meq Sodium Chloride 2.5MEQ/ml Vial 30 meq Magnesium Sulfate gm 1.5 gm In Amino Acid 5 %-D15w+Lytes*E* 1,000 ml @ 55 mls/hr IV .[id number] [facility] Rx#:[id number] Output: Urine 250 Other: Voiding Method Bedpan Bedpan Bedpan # Voids 3 2 Weight 55.5 kg Results - Lab Results Most recent lab results ABG pH 7.43 (7.35-7.45) 01/11/19 23:40 ABG pCO2 35 mmHg (35-45) 01/11/19 23:40 ABG pO2 67 mmHg (83-108) L 01/11/19 23:40 ABG HCO3 23 mmol/L (21-25) 01/11/19 23:40 ABG O2 Saturation 93.7 % (94-97) L 01/11/19 23:40 Calcium 8.3 mg/dL (8.4-10.2) L 01/19/19 07:26 Phosphorus 4.0 mg/dL (2.5-4.5) 01/19/19 07:26 Magnesium 1.8 mg/dL (1.6-2.3) 01/19/19 07:26 01/18/19 05:06 01/19/19 07:26 Assessment and Plan Plan: Assessment: 1. Hyponatremia. Patient currently appears euvolemic. 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 Sodium level 131 today. 2. Small bowel obstruction status post exposure laparotomy with small bowel resection and reduction of hernia this admission. 3. Stage IV breast cancer. 4. Right ureteral stent which patient states was placed due to an infection. This was done in [facility]. GFR currently at baseline. Plan: Check serum and urine osmolality and urine sodium. Check TSH and uric acid level. Maintain normal saline at 50 mL an hour for now. Expect sodium to improve when she is able to tolerate oral solute intake. If sodium level drops further, I will add sodium chloride tablets. Repeat electrolytes in the morning. Thank you for the consultation. I will continue to follow the patient with you during her hospital stay.
--- NOTE | 2019-01-19 12:16 | P.PN ---
Subjective Progress Note Date: 01/19/19 Principal diagnosis: Acute small bowel obstruction, status post exploratory laparotomy and small bowel resection, postoperative day #7. This is a 68-year-old female patient with metastatic breast cancer. The patient is in the hospital because of a bowel obstruction. The patient hasn't been able to eat for more than 10 days. She's been hospitalized for almost 6 days where she was unable to eat and she hasn't been able to pass gas or any bowel movement. NG tube is in place and output remains considerably high. CAT scan of the abdomen and pelvis was ordered and it showed small bowel obstruction and there is concern for pneumatosis intestinalis. It was also noted that the patient has a small to moderate-sized right-sided pleural effusion. In terms of her breast cancer, the patient was diagnosed several years ago and she has received most of her care through [facility]. She underwent a initial lumpectomy and radiation therapy. Following that she received a total of 5 years of Arimidex treatment. Around 2 years ago, her cancer recurred and was metastatic and she was found on systemic chemotherapy with doxorubicin and Cytoxan and the patient was subsequently placed on oral Xeloda. The patient also has had several abdominal surgeries. She also reports a previous bowel obstruction. This point in time the patient is awake and alert. She is a bit weak. She has been able to eat and she is obviously lacking behind on her nutrition. Her albumin level has been down to 2.0. Her CA 2729 level was up to 71 with a CVA 15 3 level of 629. Her total serum iron has been also low at 23. Her current hemoglobin is at 8.7 her white cell count of 4.5. The patient will be taken to the operating room today for an expert laparotomy and lysis of adhesions. There is history of metastases to her abdomen and the metastatic disease could have been also contributing to her bowel obstruction. As far as the pleural effusion, this has not been been drained in the past. The lung bases based on the CAT scan of the abdomen shows no evidence of any metastatic or other poor disease or another if his or lesions. On 01/13/2019 I'm seeing this patient in the follow-up. The patient is in the intensive care unit. The patient has undergone her surgery. Specifically, the patient underwent exploratory laparotomy, small bowel resection, mid jejunal resection and proximal ileal resection with primary anastomosis. There was reduction of a small bowel volvulus and internal hernia. Surgery went well and the patient was brought into the intensive care unit following that. She received a total of 2 L of IV fluids postop. NG tube still in place. Bowel sounds are quite hypoactive. Surgical site is dry clean and intact. She is awake and alert. She is not having any respiratory distress. No cough sputum production. No issues with pain and the patient has a epidural Dilaudid in place for pain control. The hemoglobin today is at 10.4 with a white cell count of 6.6. Serum bicarb is 18 with a creatinine of 0.48. On 01/14/2019 I'm seeing this patient for a follow-up. The patient is looking assess the same compared to yesterday. She is still having abdominal pain. Epidural is running at 4 mg an hour Dilaudid. No significant hypotension. Additional pain control was being given by a fentanyl patch a total of 37.5 g subcu every 72 hours. The patient is on TPN for nutritional support. The patient remains nothing by mouth. NG tube is in place. Antibiotic coverage remains a combination of Zosyn and Flagyl. Bowel sounds are absent. The incision over the anterior abdominal wall is dry clean and intact. The patient otherwise is not having any respiratory distress. We evaluated the patient has a right-sided pleural effusion which we are monitoring for the time being. There is a drop in hemoglobin which is expected after surgery. NG tube is in place. On 01/15/2019 the patient is still recovering from surgery. She is postop day #3. She does have some limited bowel sounds. No significant activity. Output from the NG tube has been 7 50 mL over the past 24 hours. The patient is otherwise doing well. She is awake and alert pH is complaining of some increased edema both in the upper and lower extremities. She is on TPN for nutritional support. She has on epidural Dilaudid for pain control. She is on IV antibiotics with Zosyn and Flagyl. She is using incentive spirometer. NG tube is in place. No other issues for now. Her condition essentially the same compared to yesterday. Electrodes are being replaced regularly. On 01/16/2019, the patient is still not passing any gas or flatus or bowel movement. The patient is laying comfortably in bed. She has developed increased edema probably related to ongoing TPN and fluids. She has also developed diffuse anasarca. She is taking Dilaudid for pain control. No nausea. No emesis. She is tired and weak. No significant shortness of breath knowing that she has a right-sided pleural effusion. Surgical site is dry clean and intact. No other significant events otherwise for now. NG tube still in place. She is tolerating the NG tube quite well and output from the NG tube has been 200 mL over the past 24 hours. Based on that the NG tube was removed yesterday. Her weight is up to 61.5 KG's. Net fluid balance is +2.8 L over the past 24 hours. Patient's hemoglobin is down to 8.7. The patient's serum albumin is down to 1.68 she is receiving TPN for nutritional support. Amylase and lipase are within normal limits. Potassium level has been replaced. Reevaluated today on 01/17/2019, patient remains in the ICU, continues to have some abdominal discomfort this morning, tolerating ice chips and popsicles, denies passing any flatus or having any bowel movements. Hemoglobin is 9.2 WBC count is 7.8 lites are relatively normal renal profile is normal Reevaluated today on 01/18/2019, remains in the ICU, however I plan to transfer the patient to a surgical floor today. Patient continues to have no bowel movements, she seems to be tolerating again her ice chips and popsicles without any difficulty. She is hemodynamically stable, and overall she feels very comfortable. Patient denies any nausea or vomiting, labs from today were all r eviewed. Remains on TPN. The patient is seen today 01/19/2019 in follow-up on the regular medical floor. She is currently resting comfortably in bed. Awake and alert in no acute distress. She is maintaining good O2 saturations in the mid 90s on room air. She's been afebrile. Hemodynamically stable. Sodium 131. Potassium 4.3. Creatinine 0.39. She remains on TPN and lipids for nourishment. Still not much flatus or bowel movement. Tolerating ice chips and popsicles without any nausea or vomiting. Objective - Vital Signs Vital signs: Vital Signs Temp 98.2 F 01/19/19 05:24 Pulse 85 01/19/19 08:30 Resp 16 01/19/19 08:30 BP 100/62 01/19/19 05:24 Pulse Ox 95 01/19/19 05:24 Intake & Output 01/18/19 01/19/19 01/19/19 18:59 06:59 18:59 Intake Total 325 1535 Output Total 1150 Balance -825 1535 Weight 55.5 kg Intake: IV 325 504 Fat Emulsion 20% 250 ml 84 In Empty Bag 1 bag @ 21 mls/hr IV DAILY@1800 ON LICENSE OF [facility] Rx#:[id number] Mvi, Adult No.4 with Vit 275 220 K 10 ml Trace (Conc-1Ml/ Dose) 1 ml Potassium Chloride 50 meq Sodium Chloride 2.5MEQ/ml Vial 20 meq Magnesium Sulfate gm 1.5 gm In Amino Acid 5 %-D15w+Lytes*E* 1,000 ml @ 55 mls/hr IV .Q19H3M [facility] Rx#:[id number] Sodium Chloride 0.9% 1, 50 200 000 ml @ 50 mls/hr IV . Q20H [facility] Rx#:[id number] Intake, IV Titration 1031 Amount Mvi, Adult No.4 with Vit 1031 K 10 ml Trace (Conc-1Ml/ Dose) 1 ml Potassium Chloride 10 meq Sodium Chloride 2.5MEQ/ml Vial 30 meq Magnesium Sulfate gm 1.5 gm In Amino Acid 5 %-D15w+Lytes*E* 1,000 ml @ 55 mls/hr IV .[id number] [facility] Rx#:[id number] Output: Urine 1150 Other: Voiding Method Bedpan Bedpan Bedpan # Voids 3 2 - Exam GENERAL EXAM: Alert, pleasant 68-year-old female patient, fairly comfortable in no apparent distress. On room air. HEAD: Normocephalic. EYES: Normal reaction of pupils, equal size. NOSE: Clear with pink turbinates. THROAT: No erythema or exudates. NECK: No masses, no JVD. CHEST: No chest wall deformity. LUNGS: Equal air entry with no crackles, wheeze, rhonchi or dullness. CVS: S1 and S2 normal with no audible murmur, regular rhythm. ABDOMEN: Surgical incision clean dry well approximated. No hepatosplenomegaly, hypoactive bowel sounds, no guarding or rigidity. SPINE: No scoliosis or deformity SKIN: No rashes CENTRAL NERVOUS SYSTEM: No focal deficits, tone is normal in all 4 extremities. EXTREMITIES: There is no peripheral edema. No clubbing, no cyanosis. Peripheral pulses are intact. - Labs CBC & Chem 7: 01/18/19 05:06 01/19/19 07:26 Labs: Abnormal Lab Results - Last 24 Hours (Table) 01/18/19 01/18/19 01/19/19 Range/Units 17:30 23:46 06:30 Sodium (137-145) mmol/L Creatinine (0.52-1.04) mg/dL Glucose (74-99) mg/dL POC Glucose (mg/dL) 113 H 133 H 112 H (75-99) mg/dL Calcium (8.4-10.2) mg/dL 01/19/19 01/19/19 Range/Units 07:26 11:23 Sodium 131 L (137-145) mmol/L Creatinine 0.39 L (0.52-1.04) mg/dL Glucose 112 H (74-99) mg/dL POC Glucose (mg/dL) 101 H (75-99) mg/dL Calcium 8.3 L (8.4-10.2) mg/dL Assessment and Plan Assessment: Impression: 1 small bowel obstruction, status post bowel resection and exploratory laparotomy postoperative day #7 2 metastatic breast cancer, stage IV 3 small right-sided pleural effusion could be malignant considering her breast cancer 4 chronic anemia 5 severe protein calorie malnutrition 6 hyponatremia suspect secondary to poor solute intake or SIADH secondary to malignancy. Current sodium 131. Seen and evaluated by nephrology. Maintaining normal saline at 50 MLS per hour. Repeat electrolytes in the a.m. Plan: The patient was seen and evaluated by Dr. Dias. She is currently stable from the pulmonary and critical care standpoint. She is maintaining good O2 saturations in the 90s on room air. The plan is for transfer to an extended care facility for subacute rehabilitation once cleared surgically and off the TPN. In the interim, continue to increase the use of the incentive spirometer and cough and deep breathing exercises. Increase activity as tolerated. We'll continue to follow. I, the cosigning physician, performed a history & physical examination of the patient. Lungs sounds crackles in the right base. Maintaining good O2 saturations in the 90s on room air. I discussed the assessment and plan of care with my nurse practitioner, Sally Hernandez. I attest to the above note as dictated by her.
--- NOTE | 2019-01-19 12:46 | P.PN ---
<Teresita Weaver A - Last Filed: 01/19/19 12:42> Subjective Progress Note Date: 01/19/19 CHIEF COMPLAINT: abdominal pain HISTORY OF PRESENT ILLNESS: Patient is status post exploratory laparotomy with small bowel resection 2, primary small bowel anastomosis 2, reduction of small bowel volvulus and internal hernia right lower quadrant. Postop day #7. Reports pain to abdomen this morning. She denies passing flatus but states "I feel rumbling in my belly". Denies nausea or vomiting. Tolerating clear liquid diet. Denies passing flatus or having BMs. PHYSICAL EXAM: VITAL SIGNS: Reviewed GENERAL: Well-developed in no acute distress. HEENT: No sclera icterus. Extraocular movements grossly intact. Moist buccal mucosa. Head is atraumatic, normocephalic. Hears conversational speech. No nasal drainage. NECK: Supple without lymphadenopathy. CHEST: Non-labored respirations and equal bilateral excursions. CARDIOVASCULAR: Regular rate with regular rhythm. Palpable 2+ radial pulses. ABDOMEN: Soft. Nondistended. Mild tenderness. PREVENA to midline incision. MUSCULOSKELETAL: No clubbing, cyanosis or edema. NEUROLOGIC: No focal or lateralizing signs. Cranial nerves II through XII grossly intact. PSYCH: Appropriate affect. Alert and oriented to person, place and time. SKIN: Well perfused. Good skin turgor. ASSESSMENT: 1. Small bowel obstruction, status post exploratory laparotomy with small bowel resection 2, primary small bowel anastomosis 2, reduction of small bowel volvulus and internal hernia right lower quadrant 2. Metastatic breast cancer PLAN: 1. Continue clear liquid diet. Dulcolax suppository 1. Continue Reglan 10 mg IV every 6 hours 2. Pain control. Continue morphine and fentanyl patch. Avoid IV dilaudid if possible. Pain management has been consulted per Dr. Downey. Awaiting further evaluation. 3. Incentive spirometry 4. Continue TPN 5. Activity as tolerated. Patient to be OOB, in the chair, and ambulatory today. PT/OT on consult 6. Patient will require HELENE at discharge Nurse practitioner note has been reviewed by physician. Signing provider agrees with the documented findings, assessment, and plan of care. Objective - Vital Signs Vital signs: Vital Signs Temp 98.2 F 01/19/19 05:24 Pulse 85 01/19/19 08:30 Resp 16 01/19/19 08:30 BP 100/62 08/21/19 05:24 Pulse Ox 95 01/19/19 05:24 Intake & Output 01/18/19 01/19/19 01/19/19 18:59 06:59 18:59 Intake Total 325 1535 Output Total 1150 Balance -825 1535 Weight 55.5 kg Intake: IV 325 504 Fat Emulsion 20% 250 ml 84 In Empty Bag 1 bag @ 21 mls/hr IV DAILY@1800 [facility] Rx#:[id number] Mvi, Adult No.4 with Vit 275 220 K 10 ml Trace (Conc-1Ml/ Dose) 1 ml Potassium Chloride 50 meq Sodium Chloride 2.5MEQ/ml Vial 20 meq Magnesium Sulfate gm 1.5 gm In Amino Acid 5 %-D15w+Lytes*E* 1,000 ml @ 55 mls/hr IV .Q19H3M [facility] Rx#:[id number] Sodium Chloride 0.9% 1, 50 200 000 ml @ 50 mls/hr IV . Q20H [facility] Rx#:[id number] Intake, IV Titration 1031 Amount Mvi, Adult No.4 with Vit 1031 K 10 ml Trace (Conc-1Ml/ Dose) 1 ml Potassium Chloride 10 meq Sodium Chloride 2.5MEQ/ml Vial 30 meq Magnesium Sulfate gm 1.5 gm In Amino Acid 5 %-D15w+Lytes*E* 1,000 ml @ 55 mls/hr IV .[id number] [facility] Rx#:[id number] Output: Urine 1150 Other: Voiding Method Bedpan Bedpan Bedpan # Voids 3 2 - Labs CBC & Chem 7: 01/18/19 05:06 01/19/19 07:26 Labs: Abnormal Lab Results - Last 24 Hours (Table) 01/18/19 01/18/19 01/19/19 Range/Units 17:30 23:46 06:30 Sodium (137-145) mmol/L Creatinine (0.52-1.04) mg/dL Glucose (74-99) mg/dL POC Glucose (mg/dL) 113 H 133 H 112 H (75-99) mg/dL Calcium (8.4-10.2) mg/dL 01/19/19 01/19/19 Range/Units 07:26 11:23 Sodium 131 L (137-145) mmol/L Creatinine 0.39 L (0.52-1.04) mg/dL Glucose 112 H (74-99) mg/dL POC Glucose (mg/dL) 101 H (75-99) mg/dL Calcium 8.3 L (8.4-10.2) mg/dL Assessment and Plan (1) Iron deficiency anemia Current Visit: Yes Status: Acute Code(s): D50.9 - IRON DEFICIENCY ANEMIA, UNSPECIFIED SNOMED Code(s): 72028691 (2) S/P small bowel resection Current Visit: Yes Status: Acute Code(s): Z90.49 - ACQUIRED ABSENCE OF OTHER SPECIFIED PARTS OF DIGESTIVE TRACT SNOMED Code(s): 345546097843494 (3) Severe protein-calorie malnutrition Current Visit: Yes Status: Acute Code(s): E43 - UNSPECIFIED SEVERE PROTEIN- CALORIE MALNUTRITION SNOMED Code(s): 231153734 (4) Abdominal pain Current Visit: Yes Status: Chronic Priority: High Code(s): R10.9 - UNSPECIFIED ABDOMINAL PAIN SNOMED Code(s): 24485178 (5) Metastatic breast cancer Current Visit: Yes Status: Chronic Priority: High Code(s): C50.919 - MALIGNANT NEOPLASM OF UNSP SITE OF UNSPECIFIED FEMALE BREAST SNOMED Code(s): 754245149 (6) Small bowel obstruction Current Visit: No Status: Acute Code(s): K56.609 - UNSP INTESTNL OBST, UNSP TO PARTIAL VERSUS COMPLETE OBST SNOMED Code(s): 242085643 <Shayan,Karen N - Last Filed: 01/19/19 18:16> Subjective She has trepidations with ambulating. She is depressed. She reports pain with movement. She is started on Ensure. Her PREVENA has been changed. She is encouraged to ambulate. She wants to see an oncologist nearby and not in [place]. Discharge pending bowel function. Objective - Vital Signs Vital signs: Vital Signs Temp 98.2 F 01/19/19 05:24 Pulse 85 01/19/19 14:39 Resp 16 01/19/19 14:39 BP 100/62 01/19/19 05:24 Pulse Ox 95 01/19/19 05:24 Intake & Output 01/18/19 01/19/19 01/19/19 18:59 06:59 18:59 Intake Total 325 1535 Output Total 1150 500 Balance -825 1535 -500 Weight 55.5 kg 55.5 kg Intake: IV 325 504 Fat Emulsion 20% 250 ml 84 In Empty Bag 1 bag @ 21 mls/hr IV DAILY@1800 [facility] Rx#:[id number] Mvi, Adult No.4 with Vit 275 220 K 10 ml Trace (Conc-1Ml/ Dose) 1 ml Potassium Chloride 50 meq Sodium Chloride 2.5MEQ/ml Vial 20 meq Magnesium Sulfate gm 1.5 gm In Amino Acid 5 %-D15w+Lytes*E* 1,000 ml @ 55 mls/hr IV .Q19H3M [facility] Rx#:[id number] Sodium Chloride 0.9% 1, 50 200 000 ml @ 50 mls/hr IV . Q20H [facility] Rx#:[id number] Intake, IV Titration 1031 Amount Mvi, Adult No.4 with Vit 1031 K 10 ml Trace (Conc-1Ml/ Dose) 1 ml Potassium Chloride 10 meq Sodium Chloride 2.5MEQ/ml Vial 30 meq Magnesium Sulfate gm 1.5 gm In Amino Acid 5 %-D15w+Lytes*E* 1,000 ml @ 55 mls/hr IV .[id number] [facility] Rx#:[id number] Output: Urine 1150 500 Other: Voiding Method Bedpan Bedpan Bedpan # Voids 3 2 2 - Labs CBC & Chem 7: 01/18/19 05:06 01/19/19 07:26 Labs: Abnormal Lab Results - Last 24 Hours (Table) 01/18/19 01/19/19 01/19/19 Range/Units 23:46 06:30 07:26 Sodium 131 L (137-145) mmol/L Creatinine 0.39 L (0.52-1.04) mg/dL Glucose 112 H (74-99) mg/dL POC Glucose (mg/dL) 133 H 112 H (75-99) mg/dL Calcium 8.3 L (8.4-10.2) mg/dL 01/19/19 01/19/19 Range/Units 11:23 16:51 Sodium (137-145) mmol/L Creatinine (0.52-1.04) mg/dL Glucose (74-99) mg/dL POC Glucose (mg/dL) 101 H 123 H (75-99) mg/dL Calcium (8.4-10.2) mg/dL Assessment and Plan (1) Abdominal pain Current Visit: Yes Status: Chronic Priority: High Code(s): R10.9 - UNSPECIFIED ABDOMINAL PAIN SNOMED Code(s): 83867225 (2) Dehydration Current Visit: Yes Status: Acute Code(s): E86.0 - DEHYDRATION SNOMED Code(s): 14389468 (3) Intractable vomiting Current Visit: Yes Status: Acute Code(s): R11.10 - VOMITING, UNSPECIFIED SNOMED Code(s): 114517601 (4) Metastatic breast cancer Current Visit: Yes Status: Chronic Priority: High Code(s): C50.919 - MALIGNANT NEOPLASM OF UNSP SITE OF UNSPECIFIED FEMALE BREAST SNOMED Code(s): 228069628 (5) Small bowel obstruction Current Visit: No Status: Acute Code(s): K56.609 - UNSP INTESTNL OBST, UNSP TO PARTIAL VERSUS COMPLETE OBST SNOMED Code(s): 530372488 (6) Iron deficiency anemia Current Visit: Yes Status: Acute Code(s): D50.9 - IRON DEFICIENCY ANEMIA, UNSPECIFIED SNOMED Code(s): 00876584 (7) Abnormal abdominal CT scan Current Visit: Yes Status: Acute Code(s): R93.5 - ABN FINDINGS ON DX IMAGING OF ABD REGIONS, INC RETROPERITON SNOMED Code(s): 67637501732364331 (8) S/P small bowel resection Current Visit: Yes Status: Acute Code(s): Z90.49 - ACQUIRED ABSENCE OF OTHER SPECIFIED PARTS OF DIGESTIVE TRACT SNOMED Code(s): 946483950418348 (9) Severe protein-calorie malnutrition Current Visit: Yes Status: Acute Code(s): E43 - UNSPECIFIED SEVERE PROTEIN- CALORIE MALNUTRITION SNOMED Code(s): 963961800
[2019-01-19] MEDS ORDERED: MORPHINE CONC SOLN 10mg/0.5mL ORAL SYRG PO PRN (12:56)
[2019-01-19] MEDS: MORPHINE SULFATE IR 15 MG TABLET PO PRN ×3 (15:18→21:51)
--- NOTE | 2019-01-19 15:35 | P.PAINCN ---
History of Present Illness - Reason for Consult Consult date: 01/19/19 - History of Present Illness This is a 68-year-old patient with a history of metastatic breast cancer on long-term opioids referred by Dr. Downey for acute postoperative pain. She is status post ex-lap with lysis of adhesions on 01/12/2019. She had an epidural placed for the procedure, which was removed on 01/16/2019. The patient reports that since epidural removal, her pain has been poorly controlled. Pain is worse with activity, physical therapy, getting up to use the commode. Pain is better with rest and sitting in her chair. She rates her pain as 5/10 at rest and 8/10 with activity. Pain at home prior to admission is rated as 8/10. Current pain medications include fentanyl patch 25 mics +12 mics per hour, Dilaudid 2 mg IV every 3 when necessary, morphine immediate release 15 mg every 4 when necessary. She also takes Xanax 0.5 mg 3 times a day and Ambien 5 mg daily at bedtime. Her home pain medications are morphine immediate release 15 mg every 4 when necessary. This was prescribed by her oncologist, however she has moved and is currently looking for another oncologist. She informs me that Dr. Reeves had stopped by, and Dr. Downey is looking into finding her new onco logist. Of note, her nasogastric tube has been removed, however she has not yet passed flatus. She has been given a suppository today. Her abdomen does not feel distended. Review of Systems All systems: negative Past Medical History Past Medical History: Cancer Additional Past Medical History / Comment(s): Metastatic breast cancer, details discussed above and the patient was receiving oral Xeloda History of Any Multi-Drug Resistant Organisms: None Reported Past Surgical History: Appendectomy, Cholecystectomy, Hysterectomy Additional Past Surgical History / Comment(s): Lumpectomy involving the left breast, previous history of abdominal surgery for small bowel obstruction Past Anesthesia/Blood Transfusion Reactions: No Reported Reaction Past Psychological History: No Psychological Hx Reported Smoking Status: Never smoker Past Alcohol Use History: None Reported Past Drug Use History: None Reported - Past Family History Father Family Medical History: Cancer Mother Family Medical History: Cancer Medications and Allergies Home Medications Medication Instructions Recorded Confirmed Type ALPRAZolam [Xanax] 0.5 mg PO TID PRN 01/02/19 01/06/19 History Aspirin EC [Ecotrin Low Dose] 81 mg PO DAILY 01/02/19 01/06/19 History Capecitabine [Xeloda] 500 mg PO TID 01/02/19 01/06/19 History Metoclopramide HCl [Reglan] 5 mg PO BID 01/02/19 01/06/19 History Morphine Sulfate Ir [MSIR] 15 mg PO BID PRN 01/02/19 01/06/19 History Zolpidem Tartrate [Ambien Cr] 12.5 mg PO HS 01/02/19 01/06/19 History Docusate [Colace] 100 mg PO BID 01/06/19 01/06/19 History Mirabegron [Myrbetriq] 50 mg PO DAILY 01/06/19 01/06/19 History Allergies Allergy/AdvReac Type Severity Reaction Status Date / Time No Known Allergies Allergy Verified 01/06/19 17:16 Physical Exam Vitals: Vital Signs Temp Pulse Resp BP BP Pulse Ox 01/19/19 14:39 85 16 01/19/19 08:30 85 16 01/19/19 05:24 98.2 F 85 16 100/62 95 01/18/19 20:00 98.0 F 86 16 112/73 97 01/18/19 16:35 85 16 01/18/19 16:21 98.1 F 84 17 106/71 96 Intake and Output 01/19/19 01/19/19 01/19/19 06:59 14:59 22:59 Intake Total 1031 Output Total 500 Balance 1031 -500 Intake: Intake, IV Titration 1031 Amount Mvi, Adult No.4 with Vit 1031 K 10 ml Trace (Conc-1Ml/ Dose) 1 ml Potassium Chloride 10 meq Sodium Chloride 2.5MEQ/ml Vial 30 meq Magnesium Sulfate gm 1.5 gm In Amino Acid 5 %-D15w+Lytes*E* 1,000 ml @ 55 mls/hr IV .[id number] [facility] Rx#:[id number] Output: Urine 500 Other: Voiding Method Bedpan Bedpan # Voids 2 2 Weight 55.5 kg 55.5 kg GENERAL: Well appearing, in no acute distress PSYCH: Mood and affect is appropriate. Awake, alert, and oriented SKIN: Skin color, texture, turgor normal, no rashes or lesions HEENT: Normocephalic, atraumatic. EOM intact CV: Bilateral pitting pedal edema 2+ RESP: Respirations are unlabored, no audible wheezing GI: Abdomen non-distended, abdominal binder in place, CLAUDINE drain present NEUR: Cranial nerves are grossly intact. Results CBC & Chem 7: 01/18/19 05:06 01/19/19 07:26 Labs: Abnormal Lab Results - Last 24 Hours (Table) 01/18/19 01/18/19 01/19/19 Range/Units 17:30 23:46 06:30 Sodium (137-145) mmol/L Creatinine (0.52-1.04) mg/dL Glucose (74-99) mg/dL POC Glucose (mg/dL) 113 H 133 H 112 H (75-99) mg/dL Calcium (8.4-10.2) mg/dL 01/19/19 01/19/19 Range/Units 07:26 11:23 Sodium 131 L (137-145) mmol/L Creatinine 0.39 L (0.52-1.04) mg/dL Glucose 112 H (74-99) mg/dL POC Glucose (mg/dL) 101 H (75-99) mg/dL Calcium 8.3 L (8.4-10.2) mg/dL Assessment and Plan Assessment: #1 metastatic breast cancer with chronic pain #2 acute postoperative pain following exploratory laparotomy with lysis of adhesions #3 chronic use of high-risk medications including opioids and benzodiazepines Plan: Medications: Discontinue Dilaudid IV Increase morphine immediate release to 2025 milligrams every 3 hours when necessary. Increasing the dose and frequency is likely to help her acute pain. Patient was advised to ask for the medication 30-45 minutes prior to any scheduled physical activity. The plan will be to wean her back to her home dose of 15 mg every 4 hours when necessary. This can be gradual, over the next 7-10 days. Continue fentanyl patch. Start scheduled Tylenol 1 g every 8 hours. Start scheduled to gabapentin 100 mg every 8 hours. Patient is going to need an oncologist who would be willing to prescribe her opioids long-term. Thank you for this consult. Feel free to call us with further questions as they arise. PQRS Measure Charge Sheet PQRS Narrative: Smoking Status Never smoker Do You Want the Pneumonia Vaccine Up to Date Vaccine AT THIS TIME? Blood Pressure [Right Calf] 100/62 Blood Pressure [Right Arm] 112/73 Blood Pressure 88/61 Pain Intensity [Abdomen] 0 Pain Intensity 0 Pain Scale Used [Abdomen] Numeric (1 - 10) Pain Scale Used Numeric (1 - 10) Scale Used Numeric (1 - 10) Home Medications: Ambulatory Orders ALPRAZolam [Xanax] 0.5 mg PO TID PRN 01/02/19 Aspirin EC [Ecotrin Low Dose] 81 mg PO DAILY 01/02/19 Capecitabine [Xeloda] 500 mg PO TID 01/02/19 Metoclopramide HCl [Reglan] 5 mg PO BID 01/02/19 Morphine Sulfate Ir [MSIR] 15 mg PO BID PRN 01/02/19 Zolpidem Tartrate [Ambien Cr] 12.5 mg PO HS 01/02/19 Docusate [Colace] 100 mg PO BID 01/06/19 Mirabegron [Myrbetriq] 50 mg PO DAILY 01/06/19
[2019-01-19 16:52] LABS: Glucose,Whole Blood 123 mg/dL (75-99)
[2019-01-19] MEDS: GABAPENTIN 100 MG CAP PO SCH ×2 (17:05→20:46)
[2019-01-19] MEDS: ACETAMINOPHEN IV (For NPO) 1,000 MG in EMPTY BAG 1 BAG IVPB SCH (17:06)
[2019-01-19] MEDS: FAT EMULSION 20% 250 ML in EMPTY BAG 1 BAG IV SCH (18:33)
[2019-01-19] MEDS: ZOLPIDEM 5 MG TAB PO PRN (22:26)
[2019-01-19] MEDS: ALPRAZolam 0.5 MG TAB PO PRN (22:26)
[2019-01-20] MEDS ORDERED: MVI, ADULT NO.4 WITH VIT K 10 ML, TRACE (CONC-1ML/DOSE) 1 ML, POTASSIUM CHLORIDE 10 MEQ... IV SCH ×6
[2019-01-20] MEDS: HEPARIN SODIUM,PORCINE 5,000 UNIT/ML 1 ML VIAL SQ SCH ×3 (00:01→16:29)
[2019-01-20] MEDS: ONDANSETRON 4 MG/2 ML VIAL IVP SCH ×4 (00:01→17:49)
[2019-01-20] MEDS: ACETAMINOPHEN IV (For NPO) 1,000 MG in EMPTY BAG 1 BAG IVPB SCH ×3 (00:02→16:27)
[2019-01-20 01:03] LABS: Glucose,Whole Blood 124 mg/dL (75-99)
[2019-01-20] MEDS: METOCLOPRAMIDE 5 MG/ML 2 ML VIAL IVP SCH ×4 (03:24→22:00)
[2019-01-20] MEDS: SODIUM CHLORIDE 0.9% 1,000 ML IV SCH ×2 (03:24→22:23)
[2019-01-20] MEDS: MORPHINE SULFATE IR 15 MG TABLET PO PRN ×6 (06:04→22:21)
[2019-01-20 06:24] LABS: Glucose,Whole Blood 105 mg/dL (75-99)
[2019-01-20] MEDS: ASPIRIN 81 MG PO SCH (08:28)
[2019-01-20] MEDS: TRIAMCINOLONE ACET 0.1% OINTMENT 15 GM TUBE TOPICAL SCH ×2 (08:29→22:00)
[2019-01-20] MEDS: DOCUSATE 100 MG CAP PO SCH ×2 (08:29→21:59)
[2019-01-20] MEDS: GABAPENTIN 100 MG CAP PO SCH ×3 (08:29→22:00)
[2019-01-20] MEDS: PANTOPRAZOLE 40 MG/10 ML VIAL IVP SCH (08:29)
[2019-01-20 09:07] LABS: African American GFR (CKD) >90 (>60 ml/min/1.73 sqM); Anion Gap 2 mmol/L; Blood Urea Nitrogen 11 mg/dL (7-17); Calcium 8.3 mg/dL (8.4-10.2); Carbon Dioxide 29 mmol/L (22-30); Chloride 101 mmol/L (98-107); Glucose 111 mg/dL (74-99); Phosphorus 3.8 mg/dL (2.5-4.5); Potassium 4.2 mmol/L (3.5-5.1); Sodium 132 mmol/L (137-145)
[2019-01-20 11:27] LABS: Glucose,Whole Blood 130 mg/dL (75-99)
--- NOTE | 2019-01-20 11:33 | P.DS ---
Providers Date of admission: 01/07/19 13:38 Expected date of discharge: 01/20/19 Attending physician: Dennys Brito MD Consults: 01/06/19 20:43 Consult Physician Routine Consulting Provider: Bjorn Reeves Consult Reason/Comments: Metastatic breast cancer Do you want consulting provider notified?: Yes 01/11/19 23:54 Consult Physician Urgent Consulting Provider: Salma Downey Consult Reason/Comments: CT abd finding concerning for early signs of bowel necrosis Do you want consulting provider notified?: Yes 01/12/19 07:43 Consult Physician Urgent Consulting Provider: Salma Downey Consult Reason/Comments: pneumotosis intestinalysis Do you want consulting provider notified?: Yes 01/12/19 10:12 Consult Physician Urgent Consulting Provider: Dedra Black Consult Reason/Comments: large right pleural effusion, post op ICU care planned Do you want consulting provider notified?: Yes 01/17/19 10:09 Consult Physician Routine Consulting Provider: Naomi Oconnor Consult Reason/Comments: pain management Do you want consulting provider notified?: Yes 01/18/19 15:45 Consult Physician Stat Consulting Provider: Sav Gill Consult Reason/Comments: hyponatremia Do you want consulting provider notified?: Yes Primary care physician: Physician Nonstaff Hospital Course: The patient is a 68-year-old female with a PMH of multiple abdominal procedures (cholecystectomy, appendectomy, hysterectomy), multiple small bowel obstructions, stage IV metastatic breast cancer (follows at [facility], w/ mets in large bowel) currently on Xeloda oral chemotherapy oral chemotherapy, presented to the ED with complaints of abdominal pain, nausea, and diarrhea. She had recently been discharged on 01/05/2019 for the same problem. She notes that her symptoms are similar to her previous episodes of SBOs. Patient had undergone extensive evaluation at [facility] during her previous admission and CT abdomen had showed multiple masses in large bowel. The patient was subsequently admitted to our service for evaluation by surgery and symptomatic management. Patient was admitted for ileus as seen on KUB in the setting of stage IV metastatic breast cancer with multiple abdominal surgeries and adhesions. Gen. surgery was consulted and recommended conservative management. Oncology was consulted and recommended obtaining records from Dr. Clarke at [facility]. Patient was initially nothing by mouth, transitioned to clear liquid diet and advanced. She was given Zofran as needed for nausea or vomiting. patient reported increased abdominal pain on 01/11/2019 with decreased responsiveness to Dilaudid. She was started on fentanyl patch. CT of the abdomen and pelvis was ordered which showed small bowel obstruction and pneumatosis intestinalis as well as right-sided pleural effusion. Patient was seen by general surgery and taken to the OR, underwent small bowel resection on 01/12/2019 secondary to chronic small bowel extraction as well as small intestine volvulus. Postsurgery, patient had NG tube placed and was monitored in the ICU. Patient was downgraded from ICU on 01/18/2019. Patient had increased difficulty postprocedure and passing gas or having a bowel movement. She was placed on an aggressive bowel regimen and her Dilaudid was gradually discontinued and transitioned to home dose of morphine. Patient was seen and examined this morning. No acute events overnight. patient says that she was able to have a small bowel movement after suppository yesterday. Passing gas now. On full liquid diet. She denies any nausea or vomiting. No fever or chills. Patient denies any chest pain, shortness breath or palpitations. General: [Appears ill], [no distress], [appears at stated age] Derm: [warm], [dry] Head: [atraumatic], [normocephalic], [symmetric] Eyes: [EOMI], [no lid lag], [anicteric sclera] Cardiovascular: [S1S2 reg], [no murmur], [positive DP pulse bilateral] Lungs: [CTA bilateral], [no rhonchi, no rales] , [no accessory muscle use] Abdominal: [soft], [Decreased bowel sounds, tenderness at the side of midline incision, dressing clean dry and intact], [no guarding], [no appreciable organomegaly] Ext: [no gross muscle atrophy], [no edema], [no contractures] Neuro: [no focal neuro deficits] Psych: [Alert], [oriented], [appropriate affect] Small bowel obstruction and volvulus status post resection on 01/12/2019 Right-sided pleural effusion with anasarca due to hypoalbuminemia subclinical hypothyroidism Hyponatremia Macrocytic anemia Breast cancer, stage IV, metastasis to the abdomen Severe protein calorie malnutrition with BMI 21.5 POD 8. NG tube removed January 15. Plans: Continue TPN. Fentanyl, Dilaudid or morphine for pain control (DC Dilaudid as per surgery, pain management on board). Discontinue Zosyn, no need for antibiotics on discharge as discussed with Dr. Etienne. Zofran or Reglan as needed for nausea or vomiting. continue aggressive bowel regimen. Follow surgery recommendations. O2 saturation maintaining. No plans on thoracentesis as per pulmonary recommendations. Albumin 1.8. Plans: O2 per NC to maintain O2 saturation greater than 92%. Diuresis as tolerated, watch for low BP. TSH 6.4, free T4 within normal limits. Likely due to acute illness. Plans: Repeat in 3 weeks. Needs follow-up with PCP. Sodium 129 to 131 to 132. Urine electrolytes indicate possible SIADH. Likely also secondary to low solute load. Plans: Daily BMP. Continue TPN. Would benefit from fluid restriction. Follow Nephrology recommendations. MCV 106.2, hemoglobin 9.7. Iron studies shows anemia chronic disease. B12 and folate within normal limits. Plans: Daily CBC. Transfuse if Hemoglobin less than 7. Plans: Management as per oncology. Hold Xeloda post surgery, will need outpatient follow up for re-initiation. [Had bowel movement yesterday. Passing gas. Cleared from surgery perspective for DC to rehab. Discussed with social work, placement in progress. DC today.] Pertinent Studies: KUB, CT abdomen and pelvis Procedures: exploratory laparotomy, small bowel resection, reduction of volvulus Patient Condition at Discharge: Fair Plan - Discharge Summary Discharge Rx Participant: No New Discharge Prescriptions: No Action Morphine Sulfate Ir [MSIR] 15 mg PO BID PRN PRN Reason: Pain ALPRAZolam [Xanax] 0.5 mg PO TID PRN PRN Reason: Anxiety Capecitabine [Xeloda] 500 mg PO TID Aspirin EC [Ecotrin Low Dose] 81 mg PO DAILY Zolpidem Tartrate [Ambien Cr] 12.5 mg PO HS Metoclopramide HCl [Reglan] 5 mg PO BID Mirabegron [Myrbetriq] 50 mg PO DAILY Docusate [Colace] 100 mg PO BID Discharge Medication List ALPRAZolam [Xanax] 0.5 mg PO TID PRN 01/02/19 [History] Aspirin EC [Ecotrin Low Dose] 81 mg PO DAILY 01/02/19 [History] Capecitabine [Xeloda] 500 mg PO TID 01/02/19 [History] Metoclopramide HCl [Reglan] 5 mg PO BID 01/02/19 [History] Morphine Sulfate Ir [MSIR] 15 mg PO BID PRN 01/02/19 [History] Zolpidem Tartrate [Ambien Cr] 12.5 mg PO HS 01/02/19 [History] Docusate [Colace] 100 mg PO BID 01/06/19 [History] Mirabegron [Myrbetriq] 50 mg PO DAILY 01/06/19 [History] Follow up Appointment(s)/Referral(s): Selin Grewal NPC [REFERRING] - 1-2 Days Salma Downey MD [STAFF PHYSICIAN] - 02/01/19 [facility], [NON-STAFF] - Patient Instructions/Handouts: High Protein / High Calorie Diet (DC), Bowel Resection (DC), Abdominal Binder (DC) Activity/Diet/Wound Care/Special Instructions: Diet as tolerated. May shower. No bath tub soaks until after seen by surgeon. [place] to be removed by surgeon. No lifting over 4 pounds for 4 weeks, February 12. REMOVE DRESSING Jan 23
--- NOTE | 2019-01-20 11:36 | P.PN ---
<Teresita Weaver A - Last Filed: 01/20/19 11:34> Subjective Progress Note Date: 01/20/19 CHIEF COMPLAINT: abdominal pain HISTORY OF PRESENT ILLNESS: Patient is status post exploratory laparotomy with small bowel resection 2, primary small bowel anastomosis 2, reduction of small bowel volvulus and internal hernia right lower quadrant. Postop day #8. Patient continues to report abdominal pain. Her pain regimen was adjusted yesterday. She had two small bowel movements this morning. Tolerating diet. Denies nausea or vomiting. PHYSICAL EXAM: VITAL SIGNS: Reviewed GENERAL: Well-developed in no acute distress. HEENT: No sclera icterus. Extraocular movements grossly intact. Moist buccal mucosa. Head is atraumatic, normocephalic. Hears conversational speech. No nasal drainage. NECK: Supple without lymphadenopathy. CHEST: Non-labored respirations and equal bilateral excursions. CARDIOVASCULAR: Regular rate with regular rhythm. Palpable 2+ radial pulses. ABDOMEN: Soft. Nondistended. Mild tenderness. Optifoam dressing MUSCULOSKELETAL: No clubbing, cyanosis or edema. NEUROLOGIC: No focal or lateralizing signs. Cranial nerves II through XII grossly intact. PSYCH: Appropriate affect. Alert and oriented to person, place and time. SKIN: Well perfused. Good skin turgor. ASSESSMENT: 1. Small bowel obstruction, status post exploratory laparotomy with small bowel resection 2, primary small bowel anastomosis 2, reduction of small bowel volvulus and internal hernia right lower quadrant 2. Metastatic breast cancer PLAN: 1. Advance diet to low fiber diet as patient does not like the options on full liquid tray 2. Pain control. Current continue regimen. 3. Wean off TPN today 4. Activity as tolerated. Patient to be OOB, in the chair, and ambulatory today. PT/OT on consult 5. Discharge to [facility] in process. Possibly tomorrow. Nurse practitioner note has been reviewed by physician. Signing provider agrees with the documented findings, assessment, and plan of care. Objective - Vital Signs Vital signs: Vital Signs Temp 97.7 F 01/20/19 06:17 Pulse 93 01/20/19 06:17 Resp 16 01/20/19 06:17 BP 102/65 01/20/19 06:17 Pulse Ox 97 01/20/19 06:17 Intake & Output 01/19/19 01/20/19 01/20/19 18:59 06:59 18:59 Intake Total 1484 Output Total 500 Balance -500 1484 Weight 55.5 kg 58 kg Intake: IV 639 Fat Emulsion 20% 250 ml 189 In Empty Bag 1 bag @ 21 mls/hr IV DAILY@1800 [facility] Rx#:[id number] Sodium Chloride 0.9% 1, 450 000 ml @ 50 mls/hr IV . Q20H [facility] Rx#:[id number] Intake, IV Titration 595 Amount ACETAMINOPHEN IV (For NPO 100 ) 1,000 mg In Empty Bag 1 bag @ 400 mls/hr IVPB Q8HR [facility] Rx#:[id number] Mvi, Adult No.4 with Vit 495 K 10 ml Trace (Conc-1Ml/ Dose) 1 ml Potassium Chloride 10 meq Sodium Chloride 2.5MEQ/ml Vial 30 meq Magnesium Sulfate gm 2 gm In Amino Acid 5%- D15w+Lytes*E* 1,000 ml @ 55 mls/hr IV .[id number] [facility] Rx#:[id number] Oral 250 Output: Urine 500 Other: Voiding Method Bedpan Bedside Commode Bedside Commode # Voids 2 1 # Bowel Movements 1 - Labs CBC & Chem 7: 01/18/19 05:06 01/20/19 07:52 Labs: Abnormal Lab Results - Last 24 Hours (Table) 01/19/19 01/19/19 01/20/19 Range/Units 11:23 16:51 01:02 Sodium (137-145) mmol/L Creatinine (0.52-1.04) mg/dL Glucose (74-99) mg/dL POC Glucose (mg/dL) 101 H 123 H 124 H (75-99) mg/dL Osmolality (280-301) mosm/kg Uric Acid (3.7-7.4) mg/dL Calcium (8.4-10.2) mg/dL TSH (0.465-4.680) mIU/L 01/20/19 01/20/19 Range/Units 06:22 07:52 Sodium 132 L (137-145) mmol/L Creatinine 0.40 L (0.52-1.04) mg/dL Glucose 111 H (74-99) mg/dL POC Glucose (mg/dL) 105 H (75-99) mg/dL Osmolality 275 L (280-301) mosm/kg Uric Acid 1.0 L (3.7-7.4) mg/dL Calcium 8.3 L (8.4-10.2) mg/dL TSH 6.400 H (0.465-4.680) mIU/L Assessment and Plan (1) Iron deficiency anemia Current Visit: Yes Status: Acute Code(s): D50.9 - IRON DEFICIENCY ANEMIA, UNSPECIFIED SNOMED Code(s): 92356877 (2) S/P small bowel resection Current Visit: Yes Status: Acute Code(s): Z90.49 - ACQUIRED ABSENCE OF OTHER SPECIFIED PARTS OF DIGESTIVE TRACT SNOMED Code(s): 792617879724077 (3) Severe protein-calorie malnutrition Current Visit: Yes Status: Acute Code(s): E43 - UNSPECIFIED SEVERE PROTEIN- CALORIE MALNUTRITION SNOMED Code(s): 346040295 (4) Abdominal pain Current Visit: Yes Status: Chronic Priority: High Code(s): R10.9 - UNSPECIFIED ABDOMINAL PAIN SNOMED Code(s): 39832911 (5) Metastatic breast cancer Current Visit: Yes Status: Chronic Priority: High Code(s): C50.919 - MALIGNANT NEOPLASM OF UNSP SITE OF UNSPECIFIED FEMALE BREAST SNOMED Code(s): 116054576 (6) Small bowel obstruction Current Visit: No Status: Acute Code(s): K56.609 - UNSP INTESTNL OBST, UNSP TO PARTIAL VERSUS COMPLETE OBST SNOMED Code(s): 542418977 <Salma Downey N - Last Filed: 01/20/19 17:06> Subjective As above. I personally spoke to oncology team who will follow-up with the patient as outpatient including manage her pain medications. Additionally, postoperative follow-up also discussed with hospitalist. Patient is clear from a surgical standpoint for discharge. Objective - Vital Signs Vital signs: Vital Signs Temp 98.4 F 01/20/19 12:55 Pulse 86 01/20/19 12:55 Resp 17 01/20/19 12:55 BP 87/52 01/20/19 12:55 Pulse Ox 99 01/20/19 12:55 Intake & Output 01/19/19 01/20/19 01/20/19 18:59 06:59 18:59 Intake Total 1484 Output Total 500 Balance -500 1484 Weight 55.5 kg 58 kg Intake: IV 639 Fat Emulsion 20% 250 ml 189 In Empty Bag 1 bag @ 21 mls/hr IV DAILY@1800 [facility] Rx#:[id number] Sodium Chloride 0.9% 1, 450 000 ml @ 50 mls/hr IV . Q20H [facility] Rx#:[id number] Intake, IV Titration 595 Amount ACETAMINOPHEN IV (For NPO 100 ) 1,000 mg In Empty Bag 1 bag @ 400 mls/hr IVPB Q8HR [facility] Rx#:[id number] Mvi, Adult No.4 with Vit 495 K 10 ml Trace (Conc-1Ml/ Dose) 1 ml Potassium Chloride 10 meq Sodium Chloride 2.5MEQ/ml Vial 30 meq Magnesium Sulfate gm 2 gm In Amino Acid 5%- D15w+Lytes*E* 1,000 ml @ 55 mls/hr IV .[id number] [facility] Rx#:[id number] Oral 250 Output: Urine 500 Other: Voiding Method Bedpan Bedside Commode Bedside Commode # Voids 2 1 # Bowel Movements 1 - Labs CBC & Chem 7: 01/18/19 05:06 01/20/19 07:52 Labs: Abnormal Lab Results - Last 24 Hours (Table) 01/20/19 01/20/19 01/20/19 Range/Units 01:02 06:22 07:52 Sodium 132 L (137-145) mmol/L Creatinine 0.40 L (0.52-1.04) mg/dL Glucose 111 H (74-99) mg/dL POC Glucose (mg/dL) 124 H 105 H (75-99) mg/dL Osmolality 275 L (280-301) mosm/kg Uric Acid 1.0 L (3.7-7.4) mg/dL Calcium 8.3 L (8.4-10.2) mg/dL TSH 6.400 H (0.465-4.680) mIU/L 01/20/19 Range/Units 11:25 Sodium (137-145) mmol/L Creatinine (0.52-1.04) mg/dL Glucose (74-99) mg/dL POC Glucose (mg/dL) 130 H (75-99) mg/dL Osmolality (280-301) mosm/kg Uric Acid (3.7-7.4) mg/dL Calcium (8.4-10.2) mg/dL TSH (0.465-4.680) mIU/L Assessment and Plan (1) Abdominal pain Current Visit: Yes Status: Chronic Priority: High Code(s): R10.9 - UNSPECIFIED ABDOMINAL PAIN SNOMED Code(s): 38517224 (2) Dehydration Current Visit: Yes Status: Acute Code(s): E86.0 - DEHYDRATION SNOMED Code(s): 05598369 (3) Intractable vomiting Current Visit: Yes Status: Acute Code(s): R11.10 - VOMITING, UNSPECIFIED SNOMED Code(s): 298246333 (4) Metastatic breast cancer Current Visit: Yes Status: Chronic Priority: High Code(s): C50.919 - MALIGNANT NEOPLASM OF UNSP SITE OF UNSPECIFIED FEMALE BREAST SNOMED Code(s): 488178261 (5) Small bowel obstruction Current Visit: No Status: Acute Code(s): K56.609 - UNSP INTESTNL OBST, UNSP TO PARTIAL VERSUS COMPLETE OBST SNOMED Code(s): 742075121 (6) Iron deficiency anemia Current Visit: Yes Status: Acute Code(s): D50.9 - IRON DEFICIENCY ANEMIA, UNSPECIFIED SNOMED Code(s): 74625868 (7) Abnormal abdominal CT scan Current Visit: Yes Status: Acute Code(s): R93.5 - ABN FINDINGS ON DX IMAGING OF ABD REGIONS, INC RETROPERITON SNOMED Code(s): 39880930048364604 (8) S/P small bowel resection Current Visit: Yes Status: Acute Code(s): Z90.49 - ACQUIRED ABSENCE OF OTHER SPECIFIED PARTS OF DIGESTIVE TRACT SNOMED Code(s): 749679113624536 (9) Severe protein-calorie malnutrition Current Visit: Yes Status: Acute Code(s): E43 - UNSPECIFIED SEVERE PROTEIN- CALORIE MALNUTRITION SNOMED Code(s): 360813401
--- NOTE | 2019-01-20 12:00 | P.PN ---
Subjective Patient is seen in follow-up for hyponatremia. Sodium level is up to 132 today. She still in liquid diet. Also maintained on IV fluids along with TPN and lipids. No vomiting or diarrhea. No chest pain or shortness of breath. Vital signs are stable. General: The patient appeared well nourished and normally developed. HEENT: Head exam is unremarkable. Neck is without jugular venous distension. LUNGS: Lungs are clear to auscultation and percussion. Breath sounds decreased. HEART: Rate and Rhythm are regular. First and second heart sounds normal. No murmurs, rubs or gallops. ABDOMEN: Abdominal exam reveals normal bowel sounds. Non-tender and non- distended. No evidence of peritonitis. EXTREMITITES: No clubbing, cyanosis, or edema. Objective - Vital Signs Vital signs: Vital Signs Temp 97.7 F 01/20/19 06:17 Pulse 93 01/20/19 06:17 Resp 16 01/20/19 06:17 BP 102/65 01/20/19 06:17 Pulse Ox 97 01/20/19 06:17 Intake & Output 01/19/19 01/20/19 01/20/19 18:59 06:59 18:59 Intake Total 1484 Output Total 500 Balance -500 1484 Weight 55.5 kg 58 kg Intake: IV 639 Fat Emulsion 20% 250 ml 189 In Empty Bag 1 bag @ 21 mls/hr IV DAILY@1800 [facility] Rx#:[id number] Sodium Chloride 0.9% 1, 450 000 ml @ 50 mls/hr IV . Q20H [facility] Rx#:[id number] Intake, IV Titration 595 Amount ACETAMINOPHEN IV (For NPO 100 ) 1,000 mg In Empty Bag 1 bag @ 400 mls/hr IVPB Q8HR [facility] Rx#:[id number] Mvi, Adult No.4 with Vit 495 K 10 ml Trace (Conc-1Ml/ Dose) 1 ml Potassium Chloride 10 meq Sodium Chloride 2.5MEQ/ml Vial 30 meq Magnesium Sulfate gm 2 gm In Amino Acid 5%- D15w+Lytes*E* 1,000 ml @ 55 mls/hr IV .[id number] [facility] Rx#:[id number] Oral 250 Output: Urine 500 Other: Voiding Method Bedpan Bedside Commode Bedside Commode # Voids 2 1 # Bowel Movements 1 - Labs CBC & Chem 7: 01/18/19 05:06 01/20/19 07:52 Labs: Abnormal Lab Results - Last 24 Hours (Table) 01/19/19 01/20/19 01/20/19 Range/Units 16:51 01:02 06:22 Sodium (137-145) mmol/L Creatinine (0.52-1.04) mg/dL Glucose (74-99) mg/dL POC Glucose (mg/dL) 123 H 124 H 105 H (75-99) mg/dL Osmolality (280-301) mosm/kg Uric Acid (3.7-7.4) mg/dL Calcium (8.4-10.2) mg/dL TSH (0.465-4.680) mIU/L 01/20/19 01/20/19 Range/Units 07:52 11:25 Sodium 132 L (137-145) mmol/L Creatinine 0.40 L (0.52-1.04) mg/dL Glucose 111 H (74-99) mg/dL POC Glucose (mg/dL) 130 H (75-99) mg/dL Osmolality 275 L (280-301) mosm/kg Uric Acid 1.0 L (3.7-7.4) mg/dL Calcium 8.3 L (8.4-10.2) mg/dL TSH 6.400 H (0.465-4.680) mIU/L Assessment and Plan Plan: Assessment: 1. Hyponatremia. Patient currently appears euvolemic. 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 Sodium level 132 today. Urine sodium 80 and urine osmolality 284. TSH mildly elevated. Uric acid noted to be low which is seen in SIADH. 2. Small bowel obstruction status post exposure laparotomy with small bowel resection and reduction of hernia this admission. 3. Stage IV breast cancer. 4. Right ureteral stent which patient states was placed due to an infection. This was done in [facility]. GFR currently at baseline. Plan: Maintain normal saline at 50 mL an hour for now. Expect sodium to improve when she is able to tolerate oral solute intake. If sodium level drops further, I will add sodium chloride tablets. Repeat electrolytes in the morning.
--- NOTE | 2019-01-20 12:19 | P.PN ---
Subjective Progress Note Date: 01/20/19 Principal diagnosis: Pain related to malignancy. Metastatic breast cancer In f/u today pt pain is better controlled, she has passed gas and had a BM today. She is anxious to go to rehab Objective - Vital Signs Vital signs: Vital Signs Temp 97.7 F 01/20/19 06:17 Pulse 93 01/20/19 06:17 Resp 16 01/20/19 06:17 BP 102/65 01/20/19 06:17 Pulse Ox 97 01/20/19 06:17 Intake & Output 01/19/19 01/20/19 01/20/19 18:59 06:59 18:59 Intake Total 1484 Output Total 500 Balance -500 1484 Weight 55.5 kg 58 kg Intake: IV 639 Fat Emulsion 20% 250 ml 189 In Empty Bag 1 bag @ 21 mls/hr IV DAILY@1800 [facility] Rx#:[id number] Sodium Chloride 0.9% 1, 450 000 ml @ 50 mls/hr IV . Q20H [facility] Rx#:[id number] Intake, IV Titration 595 Amount ACETAMINOPHEN IV (For NPO 100 ) 1,000 mg In Empty Bag 1 bag @ 400 mls/hr IVPB Q8HR [facility] Rx#:[id number] Mvi, Adult No.4 with Vit 495 K 10 ml Trace (Conc-1Ml/ Dose) 1 ml Potassium Chloride 10 meq Sodium Chloride 2.5MEQ/ml Vial 30 meq Magnesium Sulfate gm 2 gm In Amino Acid 5%- D15w+Lytes*E* 1,000 ml @ 55 mls/hr IV .[id number] [facility] Rx#:[id number] Oral 250 Output: Urine 500 Other: Voiding Method Bedpan Bedside Commode Bedside Commode # Voids 2 1 # Bowel Movements 1 - Constitutional General appearance: Present: cooperative, no acute distress, thin - EENT Eyes: Present: anicteric sclerae, EOMI - Respiratory Respiratory: bilateral: CTA - Cardiovascular Heart sounds: normal: S1, S2 - Peripheral edema leg Peripheral Edema: bilateral: None - Gastrointestinal General gastrointestinal: Present: decreased bowel sounds, soft - Neurologic Neurologic: Present: CNII-XII intact - Musculoskeletal Musculoskeletal: Present: generalized weakness - Psychiatric Psychiatric: Present: A&O x's 3, appropriate affect, intact judgment & insight - Labs CBC & Chem 7: 01/18/19 05:06 01/20/19 07:52 Labs: Abnormal Lab Results - Last 24 Hours (Table) 01/19/19 01/20/19 01/20/19 Range/Units 16:51 01:02 06:22 Sodium (137-145) mmol/L Creatinine (0.52-1.04) mg/dL Glucose (74-99) mg/dL POC Glucose (mg/dL) 123 H 124 H 105 H (75-99) mg/dL Osmolality (280-301) mosm/kg Uric Acid (3.7-7.4) mg/dL Calcium (8.4-10.2) mg/dL TSH (0.465-4.680) mIU/L 01/20/19 01/20/19 Range/Units 07:52 11:25 Sodium 132 L (137-145) mmol/L Creatinine 0.40 L (0.52-1.04) mg/dL Glucose 111 H (74-99) mg/dL POC Glucose (mg/dL) 130 H (75-99) mg/dL Osmolality 275 L (280-301) mosm/kg Uric Acid 1.0 L (3.7-7.4) mg/dL Calcium 8.3 L (8.4-10.2) mg/dL TSH 6.400 H (0.465-4.680) mIU/L Assessment and Plan (1) Cancer related pain Narrative/Plan: Pain management notes and recommendations reviewed. Pt will establish care here. Our Doctors will provide pain medication Rx at discharge Current Visit: Yes Status: Acute Priority: High Code(s): G89.3 - NEOPLASM RELATED PAIN (ACUTE) (CHRONIC) SNOMED Code(s): 32666295632846 (2) Ileus Narrative/Plan: Treated with surgery. Secondary to breast cancer. S/P resection x 2 with lysis of adhesions-path positive for malignancy, pt aware. Current Visit: Yes Status: Chronic Priority: High Code(s): K56.7 - ILEUS, UNSPECIFIED SNOMED Code(s): 754200238 (3) Abdominal pain Narrative/Plan: Secondary to disease and surgery. Pain mgmt working with pt. Will await final r ecommendations Current Visit: Yes Status: Chronic Priority: High Code(s): R10.9 - UNSPECIFIED ABDOMINAL PAIN SNOMED Code(s): 57334941 (4) Metastatic breast cancer Narrative/Plan: Pt is aware that she is not a candidate for treatment for breast cancer at this time. She understands that no treatment would begin until completion of rehabilitation and recovery from surgery. Current Visit: Yes Status: Chronic Priority: High Code(s): C50.919 - MALIGNANT NEOPLASM OF UNSP SITE OF UNSPECIFIED FEMALE BREAST SNOMED Code(s): 752860604 Plan: Pt ok from Hem/Onc standpoint for discharge once cleared by Attending, Surgeon, and other Consulting Physicians
--- NOTE | 2019-01-20 16:37 | XR ---
EXAMINATION TYPE: XR chest 1V portable DATE OF EXAM: 01/20/2019 COMPARISON: NONE HISTORY: Dehydration TECHNIQUE: Single frontal view of the chest is obtained. FINDINGS: Heart is enlarged. There is infiltrate and volume loss left lower lobe with also pleural f luid. Right lung is fairly clear. There is no heart failure. Thoracic aorta is atheromatous. There is right central venous catheter with tip in the superior vena cava. IMPRESSION: Left lower lobe pneumonia and atelectasis and pleural fluid. No heart failure. Right ple ural effusion decreased probably compared to 01/11/2019 CT scan.
[2019-01-20 17:23] LABS: Glucose,Whole Blood 88 mg/dL (75-99)
[2019-01-20] MEDS: ZOLPIDEM 5 MG TAB PO PRN (22:22)
[2019-01-20] MEDS: ALPRAZolam 0.5 MG TAB PO PRN (22:22)
[2019-01-21] MEDS: HEPARIN SODIUM,PORCINE 5,000 UNIT/ML 1 ML VIAL SQ SCH ×4 (01:02→22:53)
[2019-01-21] MEDS: ONDANSETRON 4 MG/2 ML VIAL IVP SCH ×5 (01:02→23:02)
[2019-01-21] MEDS: METOCLOPRAMIDE 5 MG/ML 2 ML VIAL IVP SCH ×4 (04:49→21:14)
[2019-01-21] MEDS: MORPHINE SULFATE IR 15 MG TABLET PO PRN ×4 (05:19→21:14)
[2019-01-21 08:36] LABS: Anisocytosis Moderate; HCT 29.2 % (34.0-46.0); HGB 9.2 gm/dL (11.4-16.0); Hypochromasia Slight; MCHC 31.6 g/dL (31.0-37.0); MCV 110.6 fL (80.0-100.0); Macrocytosis Marked; Platelet Count 388 k/uL (150-450); RBC 2.64 m/uL (3.80-5.40); RDW 22.3 % (11.5-15.5); WBC 9.1 k/uL (3.8-10.6)
[2019-01-21] MEDS: ASPIRIN 81 MG PO SCH (08:36)
[2019-01-21] MEDS: GABAPENTIN 100 MG CAP PO SCH ×3 (08:36→21:14)
[2019-01-21] MEDS: PANTOPRAZOLE 40 MG/10 ML VIAL IVP SCH (08:36)
[2019-01-21] MEDS: DOCUSATE 100 MG CAP PO SCH ×2 (08:36→21:14)
[2019-01-21] MEDS: TRIAMCINOLONE ACET 0.1% OINTMENT 15 GM TUBE TOPICAL SCH ×2 (08:36→21:14)
[2019-01-21 11:19] LABS: African American GFR (CKD) >90 (>60 ml/min/1.73 sqM); Albumin 2.3 g/dL (3.5-5.0); Anion Gap 6 mmol/L; Blood Urea Nitrogen 9 mg/dL (7-17); Carbon Dioxide 25 mmol/L (22-30); Chloride 101 mmol/L (98-107); Glucose 78 mg/dL (74-99); Magnesium 1.6 mg/dL (1.6-2.3); Phosphorus 4.3 mg/dL (2.5-4.5); Potassium 4.6 mmol/L (3.5-5.1); Sodium 132 mmol/L (137-145); Triglycerides 258 mg/dL (<150)
--- NOTE | 2019-01-21 11:45 | P.PN ---
Subjective Patient is seen in follow-up for hyponatremia. Sodium level is stable at 132 today. She is now on low fiber diet. Also maintained on IV fluids along with TPN and lipids. No vomiting or diarrhea. No chest pain or shortness of breath. Vital signs are stable. General: The patient appeared well nourished and normally developed. HEENT: Head exam is unremarkable. Neck is without jugular venous distension. LUNGS: Lungs are clear to auscultation and percussion. Breath sounds decreased. HEART: Rate and Rhythm are regular. First and second heart sounds normal. No murmurs, rubs or gallops. ABDOMEN: Abdominal exam reveals normal bowel sounds. Non-tender and non- distended. No evidence of peritonitis. EXTREMITITES: No clubbing, cyanosis, or edema. Objective - Vital Signs Vital signs: Vital Signs Temp 97.9 F 01/21/19 04:53 Pulse 94 01/21/19 09:51 Resp 16 01/21/19 04:53 BP 94/63 01/21/19 09:51 Pulse Ox 94 L 01/21/19 04:53 Intake & Output 01/20/19 01/21/19 01/21/19 18:59 06:59 18:59 Intake Total 540 450 Balance 540 450 Intake: IV 450 Sodium Chloride 0.9% 1, 450 000 ml @ 50 mls/hr IV . Q20H [facility] Rx#:[id number] Oral 540 Other: Voiding Method Bedside Commode Bedside Commode Bedside Commode # Voids 2 1 - Labs CBC & Chem 7: 01/21/19 08:03 01/21/19 10:20 Labs: Abnormal Lab Results - Last 24 Hours (Table) 01/21/19 01/21/19 Range/Units 08:03 10:20 RBC 2.64 L (3.80-5.40) m/uL Hgb 9.2 L (11.4-16.0) gm/dL Hct 29.2 L (34.0-46.0) % MCV 110.6 H (80.0-100.0) fL RDW 22.3 H (11.5-15.5) % Macrocytosis Marked A Sodium 132 L (137-145) mmol/L Creatinine 0.41 L (0.52-1.04) mg/dL Albumin 2.3 L (3.5-5.0) g/dL Triglycerides 258 H (<150) mg/dL Assessment and Plan Plan: Assessment: 1. Hyponatremia. Patient currently appears euvolemic. 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 Sodium level 132 today. Urine sodium 80 and urine osmolality 284. TSH mildly elevated. Uric acid noted to be low which is seen in SIADH. 2. Small bowel obstruction status post exposure laparotomy with small bowel resection and reduction of hernia this admission. 3. Stage IV breast cancer. 4. Right ureteral stent which patient states was placed due to an infection. This was done in [facility]. GFR currently at baseline. Plan: Maintain normal saline at 50 mL an hour for now. Expect sodium to improve when she is able to tolerate oral solute intake. If sodium level drops further, I will add sodium chloride tablets. Add 1200 mL free water restriction. Repeat electrolytes in the morning.
[2019-01-21] MEDS: MAGNESIUM SULFATE-D5W PMX 1 GM in DEXTROSE/WATER 1 100ML.BAG IVPB SCH ×2 (12:05→13:10)
[2019-01-21] MEDS ORDERED: BISACODYL 10 MG SUPP RECTAL STA (13:59)
[2019-01-21] MEDS ORDERED: MAGNESIUM SULFATE-D5W PMX 1 GM in DEXTROSE/WATER 1 100ML.BAG IVPB ONE (14:00)
[2019-01-21] MEDS ORDERED: MAGNESIUM HYDROXIDE 2,400 MG/10 ML CUP PO ONE (14:00)
--- NOTE | 2019-01-21 14:02 | P.PN ---
Subjective Progress Note Date: 01/21/19 CHIEF COMPLAINT: abdominal pain HISTORY OF PRESENT ILLNESS: Patient is status post exploratory laparotomy with small bowel resection 2, primary small bowel anastomosis 2, reduction of small bowel volvulus and internal hernia right lower quadrant. Postop day #9. Patient continues to report abdominal pain. She is receiving Fentanyl patch and MSIR. Patient denies passing flatus this morning. BM yesterday. She reports mild nausea this morning. She is tolerating diet. Only had a few bites for breakfast and reports she does not like any of the food here and states it is not edible. She reports decreased appetite. TPN was discontinued yesterday. BP high 80s-i nternal medicine aware. PHYSICAL EXAM: VITAL SIGNS: Reviewed GENERAL: Well-developed in no acute distress. HEENT: No sclera icterus. Extraocular movements grossly intact. Moist buccal mucosa. Head is atraumatic, normocephalic. Hears conversational speech. No nasal drainage. NECK: Supple without lymphadenopathy. CHEST: Non-labored respirations and equal bilateral excursions. CARDIOVASCULAR: Regular rate with regular rhythm. Palpable 2+ radial pulses. ABDOMEN: Soft. Nondistended. Mild tenderness. Optifoam dressing noted. Positive bowel sounds noted. MUSCULOSKELETAL: No clubbing, cyanosis or edema. NEUROLOGIC: No focal or lateralizing signs. Cranial nerves II through XII grossly intact. PSYCH: Appropriate affect. Alert and oriented to person, place and time. SKIN: Well perfused. Good skin turgor. ASSESSMENT: 1. Small bowel obstruction, status post exploratory laparotomy with small bowel resection 2, primary small bowel anastomosis 2, reduction of small bowel volvulus and internal hernia right lower quadrant 2. Metastatic breast cancer PLAN: 1. Continue current diet as tolerated 2. Pain control. Current continue regimen 3. Monitor blood pressure 4. Activity as tolerated 5. Incentive spirometry 6. Replace magnesium. Total of 3gram IVPB 7. Continue Colace and Reglan. Patient encouraged to be OOB and ambulating today to encourage bowel activity and passage of flatus. 8. Dulcolax suppository 1. Milk of Magnesia X 1 dose. 9. Discharge to [facility] [place] pending passage of flatus Nurse practitioner note has been reviewed by physician. Signing provider agrees with the documented findings, assessment, and plan of care. Objective - Vital Signs Vital signs: Vital Signs Temp 98.1 F 01/21/19 12:28 Pulse 81 01/21/19 12:28 Resp 16 01/21/19 12:28 BP 89/57 01/21/19 12:28 Pulse Ox 98 01/21/19 12:28 Intake & Output 01/20/19 01/21/19 01/21/19 18:59 06:59 18:59 Intake Total 540 450 Balance 540 450 Intake: IV 450 Sodium Chloride 0.9% 1, 450 000 ml @ 50 mls/hr IV . Q20H [facility] Rx#:[id number] Oral 540 Other: Voiding Method Bedside Commode Bedside Commode Bedside Commode # Voids 2 1 - Labs CBC & Chem 7: 01/21/19 08:03 01/21/19 10:20 Labs: Abnormal Lab Results - Last 24 Hours (Table) 01/21/19 01/21/19 Range/Units 08:03 10:20 RBC 2.64 L (3.80-5.40) m/uL Hgb 9.2 L (11.4-16.0) gm/dL Hct 29.2 L (34.0-46.0) % MCV 110.6 H (80.0-100.0) fL RDW 22.3 H (11.5-15.5) % Macrocytosis Marked A Sodium 132 L (137-145) mmol/L Creatinine 0.41 L (0.52-1.04) mg/dL Albumin 2.3 L (3.5-5.0) g/dL Triglycerides 258 H (<150) mg/dL Assessment and Plan (1) Iron deficiency anemia Current Visit: Yes Status: Acute Code(s): D50.9 - IRON DEFICIENCY ANEMIA, UNSPECIFIED SNOMED Code(s): 59585486 (2) S/P small bowel resection Current Visit: Yes Status: Acute Code(s): Z90.49 - ACQUIRED ABSENCE OF OTHER SPECIFIED PARTS OF DIGESTIVE TRACT SNOMED Code(s): 629341538258107 (3) Severe protein-calorie malnutrition Current Visit: Yes Status: Acute Code(s): E43 - UNSPECIFIED SEVERE PROTEIN- CALORIE MALNUTRITION SNOMED Code(s): 255333706 (4) Abdominal pain Current Visit: Yes Status: Chronic Priority: High Code(s): R10.9 - UNSPECIFIED ABDOMINAL PAIN SNOMED Code(s): 30005015 (5) Metastatic breast cancer Current Visit: Yes Status: Chronic Priority: High Code(s): C50.919 - MALIGNANT NEOPLASM OF UNSP SITE OF UNSPECIFIED FEMALE BREAST SNOMED Code(s): 736935857 (6) Small bowel obstruction Current Visit: No Status: Acute Code(s): K56.609 - UNSP INTESTNL OBST, UNSP TO PARTIAL VERSUS COMPLETE OBST SNOMED Code(s): 162664453
--- NOTE | 2019-01-21 18:03 | P.PN ---
Subjective Progress Note Date: 01/21/19 (delayed charting see at 0930 am) Principal diagnosis: abdominal pain Patient is a 68-year-old female with a past medical history of stage IV breast cancer with metastases to the abdomen and liver, insomnia, and weight loss. She was recently hospitalized here from a high of 01/05 secondary to small bowel obstruction which was conservatively managed. On presentation to the ER here her vital signs were within normal limits. Laboratory analysis showed a low sodium at 131, and hemoglobin of 10.5 which is chronic for her. She underwent a KUB which showed mild intestinal ileus. She was admitted for further management. She was made nothing by mouth and started on pain medications. Surgery was consulted who recommended conservative management with a clear liquid diet and IV fluids. Oncology was consulted who felt that her pain medicines should be optimized and requested records from her primary oncologist Dr. Clarke out of [facility]. She continued to experience significant abdominal pain, she did not have any bowel movement since admission, and she was unable to tolerate oral intake. On 01/11 she reported increased abdominal pain with decreased responsiveness to Dilaudid. She was started on a fentanyl patch. A CT abdomen and pelvis was ordered an ultimately showed a small bowel obstruction and pneumatosis intestinalis as well as a right-sided pleural effusion. She was seen again by general surgery and was taken to the operating room. She underwent small bowel resection secondary to to chronic small bowel obstructions as well as the small intestine volvulus. She was taken to the ICU. Has NG tube in place. Tolerated procedure well without any immediate postoperative complications. Had an epidural for pain control. Pain worsening on 01/14 still without bowel movement. On 01/15 pain is more controlled, still no BM,worsening fluid overload and given one dose of bumex again. NGT removed 01/15. Due to low sodium levels she was seen by nephrology who diagnosed SIADH. She was seen by pain management her pain medication regimen optimized. She was placed on aggressive bowel regimen due to no return of bowel function postoperatively. Patient did have bowel movements on 01/20 and her diet was advanced. Patient seen and examined at bedside. She is feeling tired today. She denies any chest pain, shortness of breath, nausea, or vomiting. She has not passed flatus or had a bowel movement. She reports that she is having a "upset sto mach" but denies any overt pain. Objective - Vital Signs Vital signs: Vital Signs Temp 98.1 F 01/21/19 12:28 Pulse 81 01/21/19 12:28 Resp 16 01/21/19 12:28 BP 89/57 01/21/19 12:28 Pulse Ox 98 01/21/19 12:28 Intake & Output 01/20/19 01/21/19 01/21/19 18:59 06:59 18:59 Intake Total 540 450 Balance 540 450 Weight 58 kg Intake: IV 450 Sodium Chloride 0.9% 1, 450 000 ml @ 50 mls/hr IV . Q20H [facility] Rx#:[id number] Oral 540 Other: Voiding Method Bedside Commode Bedside Commode Bedside Commode # Voids 2 1 - Exam General: non toxic, no distress, appears older than stated age, cachectic, temporal wasting Derm: warm, dry Head: atraumatic, normocephalic, symmetric Eyes: EOMI, no lid lag, anicteric sclera Mouth: no lip lesion, mucus membranes dry, NGT in place Cardiovascular: S1S2 reg, no murmur, positive posterior tibial pulse bilateral, Lungs: CTA bilateral, no rhonchi b/l bases, no accessory muscle use Abdominal: soft, + tender palpation diffusely, no guarding, no appreciable organomegaly Ext: no gross muscle atrophy,diffuse anasarca, no contractures Neuro: CN II-XI grossly intact, no focal neuro deficits Psych: Alert, oriented, flat affect - Labs CBC & Chem 7: 01/21/19 08:03 01/21/19 10:20 Labs: Abnormal Lab Results - Last 24 Hours (Table) 01/21/19 01/21/19 Range/Units 08:03 10:20 RBC 2.64 L (3.80-5.40) m/uL Hgb 9.2 L (11.4-16.0) gm/dL Hct 29.2 L (34.0-46.0) % MCV 110.6 H (80.0-100.0) fL RDW 22.3 H (11.5-15.5) % Macrocytosis Marked A Sodium 132 L (137-145) mmol/L Creatinine 0.41 L (0.52-1.04) mg/dL Albumin 2.3 L (3.5-5.0) g/dL Triglycerides 258 H (<150) mg/dL Assessment and Plan Assessment: Small bowel obstruction and volvulus s/p resection on 01/12/19 - pain control per pain management recs - on low fiber diet, - Discharged held today as had no additional BM or flatus - NGT removed 01/15 SIADH - follow Na - Nephro recs appreciated - repeat BMP in AM Severe protein calorie malnutrition with cachexia and BMI of 17.6 -supplements -Dietitian recommendations -oral intake has been okay will hold off restarted marinol at this time Macrocytic anemia -RBC folate and B12 within normal limits, iron studies within normal limits Ferritin >300 -Follow CBC Metastatic breast cancer with metastases to the abdomen -Oncology recommendations, will follow with Dr. Reeves after discharge. Hyperchloremic metabolic acidosis, resolved Hypokalemia, resolved Right sided pleural effusion, improved Anasarca due to hypoalbuminemia, improved hypomagnesemia, resolved DVT prophylaxis: Heparin Discussed with: Patient, nursing Anticipated discharge: [address]: Home with home health vs [facility] A total of 35 minutes was spent on the care of this complex patient more than 50% of the time was spent in counseling and care coordination.
[2019-01-21] MEDS: ALPRAZolam 0.5 MG TAB PO PRN (22:53)
[2019-01-21] MEDS: ZOLPIDEM 5 MG TAB PO PRN (22:53)
[2019-01-22] MEDS: METOCLOPRAMIDE 5 MG/ML 2 ML VIAL IVP SCH ×4 (03:07→21:13)
[2019-01-22] MEDS: ONDANSETRON 4 MG/2 ML VIAL IVP SCH ×4 (05:58→23:35)
--- NOTE | 2019-01-22 09:03 | P.PN ---
Subjective Patient is seen in follow-up for hyponatremia. Sodium level stable at 132 as of yesterday. She is now on low fiber diet but appetite is poor. Maintained on IV fluids. No vomiting or diarrhea. Vital signs are stable. General: The patient appeared well nourished and normally developed. HEENT: Head exam is unremarkable. Neck is without jugular venous distension. LUNGS: Lungs are clear to auscultation and percussion. Breath sounds decreased. HEART: Rate and Rhythm are regular. First and second heart sounds normal. No murmurs, rubs or gallops. ABDOMEN: Abdominal exam reveals normal bowel sounds. Non-tender and non- distended. No evidence of peritonitis. EXTREMITITES: No clubbing, cyanosis, or edema. Objective - Vital Signs Vital signs: Vital Signs Temp 98.6 F 01/22/19 05:00 Pulse 102 H 01/22/19 05:00 Resp 16 01/22/19 05:00 BP 99/67 01/22/19 05:00 Pulse Ox 94 L 01/22/19 05:00 Intake & Output 01/21/19 01/22/19 01/22/19 18:59 06:59 18:59 Intake Total 720 Balance 720 Weight 58 kg Intake: IV 600 Sodium Chloride 0.9% 1, 600 000 ml @ 50 mls/hr IV . Q20H [facility] Rx#:[id number] Oral 120 Other: Voiding Method Bedside Commode # Voids 2 # Bowel Movements 1 - Labs CBC & Chem 7: 01/21/19 08:03 01/21/19 10:20 Labs: Abnormal Lab Results - Last 24 Hours (Table) 01/21/19 Range/Units 10:20 Sodium 132 L (137-145) mmol/L Creatinine 0.41 L (0.52-1.04) mg/dL Albumin 2.3 L (3.5-5.0) g/dL Triglycerides 258 H (<150) mg/dL Assessment and Plan Plan: Assessment: 1. Hyponatremia. Patient currently appears euvolemic. 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 Sodium level 132 as of yesterday. Urine sodium 80 and urine osmolality 284. TSH mildly elevated. Uric acid noted to be low which is seen in SIADH. 2. Small bowel obstruction status post exposure laparotomy with small bowel resection and reduction of hernia this admission. 3. Stage IV breast cancer. 4. Right ureteral stent which patient states was placed due to an infection. This was done in [place], [place]. GFR currently at baseline. Plan: Maintain normal saline at 50 mL an hour for now. Expect sodium to improve as her oral intake improves. If sodium level drops further, I will add sodium chloride tablets. Maintain 1200 mL free water restriction. Morning labs pending.
[2019-01-22] MEDS: PANTOPRAZOLE 40 MG TABLET PO SCH (09:12)
[2019-01-22] MEDS: DOCUSATE 100 MG CAP PO SCH ×2 (09:12→21:13)
[2019-01-22] MEDS: HEPARIN SODIUM,PORCINE 5,000 UNIT/ML 1 ML VIAL SQ SCH ×3 (09:12→23:35)
[2019-01-22] MEDS: TRIAMCINOLONE ACET 0.1% OINTMENT 15 GM TUBE TOPICAL SCH ×2 (09:12→21:13)
[2019-01-22] MEDS: ASPIRIN 81 MG PO SCH (09:12)
[2019-01-22] MEDS: GABAPENTIN 100 MG CAP PO SCH ×3 (09:12→21:13)
[2019-01-22] MEDS: MORPHINE SULFATE IR 15 MG TABLET PO PRN ×2 (09:15→13:23)
[2019-01-22 09:27] LABS: Anisocytosis Moderate; HCT 31.8 % (34.0-46.0); Hypochromasia Slight; MCH 34.3 pg (25.0-35.0); MCHC 31.4 g/dL (31.0-37.0); Macrocytosis Marked; Mean Platelet Volume 7.6; Platelet Count 457 k/uL (150-450); RBC 2.91 m/uL (3.80-5.40); RDW 21.5 % (11.5-15.5); WBC 11.4 k/uL (3.8-10.6)
[2019-01-22 09:30] LABS: MCV 109.2 fL (80.0-100.0)
[2019-01-22 09:42] LABS: African American GFR (CKD) >90 (>60 ml/min/1.73 sqM); Anion Gap 8 mmol/L; Blood Urea Nitrogen 8 mg/dL (7-17); Calcium 9.2 mg/dL (8.4-10.2); Carbon Dioxide 29 mmol/L (22-30); Chloride 95 mmol/L (98-107); Glucose 84 mg/dL (74-99); Magnesium 1.8 mg/dL (1.6-2.3); Phosphorus 4.5 mg/dL (2.5-4.5); Potassium 4.3 mmol/L (3.5-5.1); Sodium 132 mmol/L (137-145)
--- NOTE | 2019-01-22 10:50 | P.PN ---
Subjective Progress Note Date: 01/22/19 Principal diagnosis: Small bowel obstruction Patient complaining of nausea today. Had a small bowel movement today and underwent slightly larger 1 yesterday. Feels gassy pains at times. White blood cell count 11. Did not eat much for breakfast today. No vomiting. Objective - Vital Signs Vital signs: Vital Signs Temp 98.6 F 01/22/19 05:00 Pulse 102 H 01/22/19 05:00 Resp 16 01/22/19 05:00 BP 99/67 01/22/19 05:00 Pulse Ox 94 L 01/22/19 05:00 Intake & Output 01/21/19 01/22/19 01/22/19 18:59 06:59 18:59 Intake Total 720 Balance 720 Weight 58 kg Intake: IV 600 Sodium Chloride 0.9% 1, 600 000 ml @ 50 mls/hr IV . Q20H [facility] Rx#:[id number] Oral 120 Other: Voiding Method Bedside Commode # Voids 2 # Bowel Movements 1 - Exam Abdomen: Soft, mild distention, mild tenderness, - Labs CBC & Chem 7: 01/22/19 08:07 01/22/19 08:07 Labs: Abnormal Lab Results - Last 24 Hours (Table) 01/21/19 01/22/19 01/22/19 Range/Units 10:20 08:07 08:07 WBC 11.4 H (3.8-10.6) k/uL RBC 2.91 L (3.80-5.40) m/uL Hgb 10.0 L (11.4-16.0) gm/dL Hct 31.8 L (34.0-46.0) % MCV 109.2 H (80.0-100.0) fL RDW 21.5 H (11.5-15.5) % Plt Count 457 H (150-450) k/uL Macrocytosis Marked A Sodium 132 L 132 L (137-145) mmol/L Chloride 95 L (98-107) mmol/L Creatinine 0.41 L 0.49 L (0.52-1.04) mg/dL Albumin 2.3 L (3.5-5.0) g/dL Triglycerides 258 H (<150) mg/dL Assessment and Plan (1) S/P small bowel resection Narrative/Plan: Monitor the patient's complaints of nausea. Increase activity as able. Continue diet as ordered for now. Current Visit: Yes Status: Acute Code(s): Z90.49 - ACQUIRED ABSENCE OF OTHER SPECIFIED PARTS OF DIGESTIVE TRACT SNOMED Code(s): 038296789878226
--- NOTE | 2019-01-22 14:10 | P.PN ---
Subjective Progress Note Date: 01/22/19 Principal diagnosis: abdominal pain Patient is a 68-year-old female with a past medical history of stage IV breast cancer with metastases to the abdomen and liver, insomnia, and weight loss. She was recently hospitalized here from a high of 01/05 secondary to small bowel obstruction which was conservatively managed. On presentation to the ER here her vital signs were within normal limits. Laboratory analysis showed a low sodium at 131, and hemoglobin of 10.5 which is chronic for her. She underwent a KUB which showed mild intestinal ileus. She was admitted for f urther management. She was made nothing by mouth and started on pain medications. Surgery was consulted who recommended conservative management with a clear liquid diet and IV fluids. Oncology was consulted who felt that her pain medicines should be optimized and requested records from her primary oncologist Dr. Clarke out of [facility]. She continued to experience significant abdominal pain, she did not have any bowel movement since admission, and she was unable to tolerate oral intake. On 01/11 she reported increased abdominal pain with decreased responsiveness to Dilaudid. She was started on a fentanyl patch. A CT abdomen and pelvis was ordered an ultimately showed a small bowel obstruction and pneumatosis intestinalis as well as a right-sided pleural effusion. She was seen again by general surgery and was taken to the operating room. She underwent small bowel resection secondary to to chronic small bowel obstructions as well as the small intestine volvulus. She was taken to the ICU. Has NG tube in place. Tolerated procedure well without any immediate postoperative complications. Had an epidural for pain control. Pain worsening on 01/14 still without bowel movement. On 01/15 pain is more controlled, still no BM,worsening fluid overload and given one dose of bumex again. NGT removed 01/15. Due to low sodium levels she was seen by nephrology who diagnosed SIADH. She was seen by pain management her pain medication regimen optimized. She was placed on aggressive bowel regimen due to no return of bowel function postoperatively. Patient did have bowel movements on 01/20 and her diet was advanced. On the morning of 01/21 he should stop passing flatus. She also had decreased appetite. On the morning of 01/22 her nausea returned. Patient seen and examined at bedside. Feeling tired, worn out, and very nauseous. Also reports some increasing abdominal pain. Discussed that her pathology was consistent with metastatic disease at the surgical site. Patient states she was not aware of this. Denies any chest pain or shortness of breath. No cough. No dysuria or urinary frequency Objective - Vital Signs Vital signs: Vital Signs Temp 97.2 F L 01/22/19 11:52 Pulse 95 01/22/19 11:52 Resp 17 01/22/19 11:52 BP 108/63 01/22/19 11:52 Pulse Ox 95 01/22/19 11:52 Intake & Output 01/21/19 01/22/19 01/22/19 18:59 06:59 18:59 Intake Total 720 Balance 720 Weight 58 kg Intake: IV 600 Sodium Chloride 0.9% 1, 600 000 ml @ 50 mls/hr IV . Q20H [facility] Rx#:[id number] Oral 120 Other: Voiding Method Bedside Commode Bedside Commode # Voids 2 # Bowel Movements 1 - Exam General: non toxic, no distress, appears older than stated age, cachectic, temporal wasting Derm: warm, dry Head: atraumatic, normocephalic, symmetric Eyes: EOMI, no lid lag, anicteric sclera Mouth: no lip lesion, mucus membranes dry Cardiovascular: S1S2 reg, no murmur, positive posterior tibial pulse bilateral, Lungs: CTA bilateral, no rhonchi b/l bases, no accessory muscle use Abdominal: soft, + tender palpation over midline incision, no guarding, no appreciable organomegaly Ext: no gross muscle atrophy, 1+ edema bilateral lower extremities, no contractures Neuro: CN II-XI grossly intact, no focal neuro deficits Psych: Alert, oriented, flat affect - Labs CBC & Chem 7: 01/22/19 08:07 01/22/19 08:07 Labs: Abnormal Lab Results - Last 24 Hours (Table) 01/22/19 01/22/19 Range/Units 08:07 08:07 WBC 11.4 H (3.8-10.6) k/uL RBC 2.91 L (3.80-5.40) m/uL Hgb 10.0 L (11.4-16.0) gm/dL Hct 31.8 L (34.0-46.0) % MCV 109.2 H (80.0-100.0) fL RDW 21.5 H (11.5-15.5) % Plt Count 457 H (150-450) k/uL Macrocytosis Marked A Sodium 132 L (137-145) mmol/L Chloride 95 L (98-107) mmol/L Creatinine 0.49 L (0.52-1.04) mg/dL Assessment and Plan Assessment: Small bowel obstruction and volvulus s/p resection on 01/12/19 - pain control per pain management recs, patient asking for increase and will increase gabapentin but try not to increase opiates due to poor bowel function. - on low fiber diet - Small BM 01/22, received suppository X 1 per surgery recs - NGT removed 01/15 - if vomiting repeat KUB - on reglan SIADH - follow Na - Nephro recs appreciated - repeat BMP in AM Severe protein calorie malnutrition with cachexia and BMI of 17.6 -supplements -Dietitian recommendations -hold off on marinol until nausea improved. Macrocytic anemia -RBC folate and B12 within normal limits, iron studies within normal limits Ferritin >300 -Follow CBC Metastatic breast cancer with metastases to the abdomen -Oncology recommendations, will follow with Dr. Reeves after discharge. Hyperchloremic metabolic acidosis, resolved Hypokalemia, resolved Right sided pleural effusion, improved Anasarca due to hypoalbuminemia, improved hypomagnesemia, resolved DVT prophylaxis: Heparin Discussed with: Patient, nursing Anticipated discharge: [address]: Home with home health vs [facility] A total of 35 minutes was spent on the care of this complex patient more than 50% of the time was spent in counseling and care coordination.
[2019-01-22] MEDS: SODIUM CHLORIDE 0.9% 1,000 ML IV SCH (14:38)
[2019-01-22] MEDS: ALPRAZolam 0.5 MG TAB PO PRN (23:35)
[2019-01-23] MEDS: METOCLOPRAMIDE 5 MG/ML 2 ML VIAL IVP SCH ×4 (03:23→21:36)
[2019-01-23] MEDS: ONDANSETRON 4 MG/2 ML VIAL IVP SCH ×3 (05:37→21:27)
[2019-01-23 07:46] LABS: Anisocytosis Moderate; HCT 24.8 % (34.0-46.0); MCH 35.3 pg (25.0-35.0); MCHC 32.6 g/dL (31.0-37.0); MCV 108.2 fL (80.0-100.0); Macrocytosis Marked; Mean Platelet Volume 7.3; Platelet Count 387 k/uL (150-450); RDW 20.6 % (11.5-15.5); WBC 9.3 k/uL (3.8-10.6)
[2019-01-23 07:51] LABS: African American GFR (CKD) >90 (>60 ml/min/1.73 sqM); Anion Gap 6 mmol/L; Blood Urea Nitrogen 11 mg/dL (7-17); Calcium 9.2 mg/dL (8.4-10.2); Carbon Dioxide 28 mmol/L (22-30); Chloride 97 mmol/L (98-107); Glucose 94 mg/dL (74-99); Magnesium 1.6 mg/dL (1.6-2.3); Phosphorus 4.3 mg/dL (2.5-4.5); Potassium 4.3 mmol/L (3.5-5.1); Sodium 131 mmol/L (137-145)
[2019-01-23 07:55] LABS: HGB 8.1 gm/dL (11.4-16.0)
--- NOTE | 2019-01-23 10:07 | P.PN ---
Subjective Patient is seen in follow-up for hyponatremia. Sodium level 131 today. Oral intake is poor. She had 2 episodes of vomiting last night. Vital signs are stable. General: The patient appeared well nourished and normally developed. HEENT: Head exam is unremarkable. Neck is without jugular venous distension. LUNGS: Lungs are clear to auscultation and percussion. Breath sounds decreased. HEART: Rate and Rhythm are regular. First and second heart sounds normal. No murmurs, rubs or gallops. ABDOMEN: Abdominal exam reveals normal bowel sounds. Non-tender and non- distended. No evidence of peritonitis. EXTREMITITES: No clubbing, cyanosis, or edema. Objective - Vital Signs Vital signs: Vital Signs Temp 98.2 F 01/23/19 05:00 Pulse 89 01/23/19 05:00 Resp 16 01/23/19 05:00 BP 92/55 01/23/19 05:00 Pulse Ox 97 01/23/19 06:28 Intake & Output 01/22/19 01/23/19 01/23/19 18:59 06:59 18:59 Intake Total 1080 Output Total 800 Balance 280 Intake: IV 600 Sodium Chloride 0.9% 1, 600 000 ml @ 50 mls/hr IV . Q20H [facility] Rx#:[id number] Oral 480 Output: Emesis 800 Other: Voiding Method Bedside Commode Bedside Commode # Voids 2 - Labs CBC & Chem 7: 01/23/19 06:22 01/23/19 06:22 Labs: Abnormal Lab Results - Last 24 Hours (Table) 01/23/19 01/23/19 Range/Units 06:22 06:22 RBC 2.30 L (3.80-5.40) m/uL Hgb 8.1 L D (11.4-16.0) gm/dL Hct 24.8 L (34.0-46.0) % MCV 108.2 H (80.0-100.0) fL MCH 35.3 H (25.0-35.0) pg RDW 20.6 H (11.5-15.5) % Macrocytosis Marked A Sodium 131 L (137-145) mmol/L Chloride 97 L (98-107) mmol/L Creatinine 0.51 L (0.52-1.04) mg/dL Assessment and Plan Plan: Assessment: 1. Hyponatremia. Patient currently appears euvolemic. 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 Sodium level 131 today. Urine sodium 80 and urine osmolality 284. TSH mildly elevated. Uric acid noted to be low which is seen in SIADH. 2. Small bowel obstruction status post exposure laparotomy with small bowel resection and reduction of hernia this admission. 3. Stage IV breast cancer. 4. Right ureteral stent which patient states was placed due to an infection. This was done in [place], [place]. GFR currently at baseline. 5. Hypomagnesemia from poor oral intake. Plan: Maintain normal saline at 50 mL an hour for now. Maintain 1200 mL free water restriction. Add sodium chloride tablets twice daily. Repeat electrolytes in the morning. Replace magnesium. 2 g IV today.
--- NOTE | 2019-01-23 10:22 | P.PN ---
Subjective Progress Note Date: 01/23/19 Principal diagnosis: Small bowel obstruction Patient had episodes of vomiting yesterday afternoon and again this morning. Feels bloated. She did pass flatus. No bowel movement. T-max 99.1. White blood cell count 9.3 Objective - Vital Signs Vital signs: Vital Signs Temp 98.2 F 01/23/19 05:00 Pulse 89 01/23/19 05:00 Resp 16 01/23/19 05:00 BP 92/55 01/23/19 05:00 Pulse Ox 97 01/23/19 06:28 Intake & Output 01/22/19 01/23/19 01/23/19 18:59 06:59 18:59 Intake Total 1080 Output Total 800 Balance 280 Intake: IV 600 Sodium Chloride 0.9% 1, 600 000 ml @ 50 mls/hr IV . Q20H [facility] Rx#:[id number] Oral 480 Output: Emesis 800 Other: Voiding Method Bedside Commode Bedside Commode # Voids 2 - Exam Abdomen: Soft, mild distention, mild tenderness, incision clean and dry - Labs CBC & Chem 7: 01/23/19 06:22 01/23/19 06:22 Labs: Abnormal Lab Results - Last 24 Hours (Table) 01/23/19 01/23/19 Range/Units 06:22 06:22 RBC 2.30 L (3.80-5.40) m/uL Hgb 8.1 L D (11.4-16.0) gm/dL Hct 24.8 L (34.0-46.0) % MCV 108.2 H (80.0-100.0) fL MCH 35.3 H (25.0-35.0) pg RDW 20.6 H (11.5-15.5) % Macrocytosis Marked A Sodium 131 L (137-145) mmol/L Chloride 97 L (98-107) mmol/L Creatinine 0.51 L (0.52-1.04) mg/dL Assessment and Plan (1) S/P small bowel resection Narrative/Plan: Patient with nausea vomiting and anorexia. We'll check flatplate at this time. Possible CAT scan following that. Discussed options of nasogastric tube insertion. Current Visit: Yes Status: Acute Code(s): Z90.49 - ACQUIRED ABSENCE OF OTHER SPECIFIED PARTS OF DIGESTIVE TRACT SNOMED Code(s): 545228748407320
[2019-01-23] MEDS: DOCUSATE 100 MG CAP PO SCH ×2 (10:54→21:27)
[2019-01-23] MEDS: PANTOPRAZOLE 40 MG TABLET PO SCH (10:54)
[2019-01-23] MEDS: GABAPENTIN 100 MG CAP PO SCH ×3 (10:54→21:35)
[2019-01-23] MEDS: ASPIRIN 81 MG PO SCH (10:54)
[2019-01-23] MEDS: HEPARIN SODIUM,PORCINE 5,000 UNIT/ML 1 ML VIAL SQ SCH ×2 (10:55→18:29)
[2019-01-23] MEDS: TRIAMCINOLONE ACET 0.1% OINTMENT 15 GM TUBE TOPICAL SCH ×2 (10:55→21:47)
[2019-01-23] MEDS: MAGNESIUM SULFATE-D5W PMX 1 GM in DEXTROSE/WATER 1 100ML.BAG IVPB SCH ×2 (10:57→13:12)
[2019-01-23] MEDS: SODIUM CHLORIDE TAB 1 GM TAB PO SCH ×2 (10:58→21:40)
--- NOTE | 2019-01-23 16:56 | XR ---
EXAMINATION TYPE: XR abdomen 2V DATE OF EXAM: 01/23/2019 COMPARISON: 01/06/2019 HISTORY: Nausea and vomiting TECHNIQUE: 2 views supine. One view upright FINDINGS: There is right side ureteral stent. There is moderate amount of gas in multiple loops of la rge and small bowel. There is blunting of the costophrenic angles. Heart is enlarged. There is probab ly vascular congestion. There is infiltrate at the left lung base. There are multiple midline skin st aples. There is no evidence of free air. There are clips over the right upper quadrant. There is gas seen down to the rectum. IMPRESSION: Gas pattern consistent with intestinal ileus. No free air. Pleural effusions and basilar pulmonary infiltrates significantly increased compared to last exam. Th is could be congestive heart failure.
--- NOTE | 2019-01-23 17:11 | P.PN ---
Subjective Progress Note Date: 01/23/19 (delayed charting seen at 1130) Principal diagnosis: abdominal pain Patient is a 68-year-old female with a past medical history of stage IV breast cancer with metastases to the abdomen and liver, insomnia, and weight loss. She was recently hospitalized here from a high of 01/05 secondary to small bowel obstruction which was conservatively managed. On presentation to the ER here her vital signs were within normal limits. Laboratory analysis showed a low sodium at 131, and hemoglobin of 10.5 which is chronic for her. She underwent a KUB which showed mild intestinal ileus. She was admitted for further management. She was made nothing by mouth and started on pain medications. Surgery was consulted who recommended conservative management with a clear liquid diet and IV fluids. Oncology was consulted who felt that her pain medicines should be optimized and requested records from her primary oncologist Dr. Clarke out of [facility]. She continued to experience significant abdominal pain, she did not have any bowel movement since admission, and she was unable to tolerate oral intake. On 01/11 she reported increased abdominal pain with decreased responsiveness to Dilaudid. She was started on a fentanyl patch. A CT abdomen and pelvis was ordered an ultimately showed a small bowel obstruction and pneumatosis intestinalis as well as a right-sided pleural effusion. She was seen again by general surgery and was taken to the operating room. She underwent small bowel resection secondary to to chronic small bowel obstructions as well as the small intestine volvulus. She was taken to the ICU. Has NG tube in place. Tolerated procedure well without any immediate postoperative complications. Had an epidural for pain control. Pain worsening on 01/14 still without bowel movement. On 01/15 pain was more controlled, still no BM,worsening fluid overload and given one dose of bumex again. NGT removed 01/15. Due to low sodium levels she was seen by nephrology who diagnosed SIADH. She was seen by pain management her pain medication regimen optimized. She was placed on aggressive bowel regimen due to no return of bowel function postoperatively. Patient did have bowel movements on 01/20 and her diet was advanced. On the morning of 01/21 she had stopped passing flatus. She also had decreased appetite. On the morning of 01/22 her nausea returned she then had 2 episode of vomiting. Patient seen and examined at bedside. Episode of emesis this AM. Reports lots of gas today, no BM. Nausea better after vomiting. No chest pain, no shortness of breath. Objective - Vital Signs Vital signs: Vital Signs Temp 97.4 F L 01/23/19 12:36 Pulse 80 01/23/19 12:36 Resp 18 01/23/19 12:36 BP 92/55 01/23/19 12:36 Pulse Ox 94 L 01/23/19 12:36 Intake & Output 01/22/19 01/23/19 01/23/19 18:59 06:59 18:59 Intake Total 1080 Output Total 800 Balance 280 Intake: IV 600 Sodium Chloride 0.9% 1, 600 000 ml @ 50 mls/hr IV . Q20H [facility] Rx#:[id number] Oral 480 Output: Emesis 800 Other: Voiding Method Bedside Commode Bedside Commode Bedside Commode # Voids 2 - Exam General: ill appearing, no distress, appears older than stated age, cachectic, temporal wasting Derm: warm, dry Head: atraumatic, normocephalic, symmetric Eyes: EOMI, no lid lag, anicteric sclera Mouth: no lip lesion, mucus membranes dry Cardiovascular: S1S2 reg, no murmur, positive posterior tibial pulse bilateral, Lungs: decreased bs bilateral bases, no rhonchi b/l bases, no accessory muscle use Abdominal: soft, + tender palpation over midline incision, no guarding, no appreciable organomegaly Ext: no gross muscle atrophy, 1+ edema bilateral lower extremities, no contractures Neuro: CN II-XI grossly intact, no focal neuro deficits Psych: Alert, oriented, flat affect - Labs CBC & Chem 7: 01/23/19 06:22 01/23/19 06:22 Labs: Abnormal Lab Results - Last 24 Hours (Table) 01/23/19 01/23/19 Range/Units 06:22 06:22 RBC 2.30 L (3.80-5.40) m/uL Hgb 8.1 L D (11.4-16.0) gm/dL Hct 24.8 L (34.0-46.0) % MCV 108.2 H (80.0-100.0) fL MCH 35.3 H (25.0-35.0) pg RDW 20.6 H (11.5-15.5) % Macrocytosis Marked A Sodium 131 L (137-145) mmol/L Chloride 97 L (98-107) mmol/L Creatinine 0.51 L (0.52-1.04) mg/dL Assessment and Plan Assessment: Small bowel obstruction and volvulus s/p resection on 01/12/19, ow with ileus - replace NGT 01/23- KUB with ileus - pain control per pain management recs - NPO, ice chip and sips of water okay - on reglan SIADH - follow Na - Nephro recs appreciated - on IVF - repeat BMP in AM Pulm edema on CXR - tolerating well - needs IVF at this point in time as NPO Severe protein calorie malnutrition with cachexia and BMI of 17.6 -supplements -Dietitian recommendations -hold off on marinol until nausea improved. Macrocytic anemia -RBC folate and B12 within normal limits, iron studies within normal limits Ferritin >300 -Follow CBC Metastatic breast cancer with metastases to the abdomen -Oncology recommendations, will follow with Dr. Reeves after discharge. They will write Rx for pain medications. Hyperchloremic metabolic acidosis, resolved Hypokalemia, resolved Right sided pleural effusion, improved Anasarca due to hypoalbuminemia, improved hypomagnesemia, resolved DVT prophylaxis: Heparin Discussed with: Patient, nursing Anticipated discharge: [address]: SNF A total of 35 minutes was spent on the care of this complex patient more than 50% of the time was spent in counseling and care coordination.
[2019-01-23] MEDS: SODIUM CHLORIDE 0.9% 1,000 ML IV SCH ×2 (18:31→21:40)
[2019-01-23] MEDS: ZOLPIDEM 5 MG TAB PO PRN (22:16)
[2019-01-23] MEDS: ALPRAZolam 0.5 MG TAB PO PRN (22:16)
[2019-01-24] MEDS: HEPARIN SODIUM,PORCINE 5,000 UNIT/ML 1 ML VIAL SQ SCH ×4 (00:14→23:54)
[2019-01-24] MEDS: ONDANSETRON 4 MG/2 ML VIAL IVP SCH ×5 (00:14→23:53)
[2019-01-24] MEDS: METOCLOPRAMIDE 5 MG/ML 2 ML VIAL IVP SCH ×4 (03:31→20:43)
[2019-01-24] MEDS: SODIUM CHLORIDE 0.9% 1,000 ML IV SCH (03:33)
[2019-01-24] MEDS: MORPHINE SULFATE 2 MG/ML SYRINGE IVP PRN ×4 (04:44→18:06)
[2019-01-24] MEDS: DOCUSATE 100 MG CAP PO SCH ×2 (07:42→20:27)
[2019-01-24] MEDS: ASPIRIN 81 MG PO SCH ×2 (08:32→08:38)
[2019-01-24] MEDS: PANTOPRAZOLE 40 MG TABLET PO SCH ×2 (08:32→08:38)
[2019-01-24] MEDS: GABAPENTIN 100 MG CAP PO SCH ×4 (08:32→20:44)
[2019-01-24] MEDS: SODIUM CHLORIDE TAB 1 GM TAB PO SCH ×3 (08:33→20:44)
[2019-01-24 08:48] LABS: Anisocytosis Slight; Basophils # (A) 0.1 k/uL (0-0.2); Basophils % (A) 1 %; Eosinophils # (A) 2.2 k/uL (0-0.7); Eosinophils % (A) 30 %; HGB 8.9 gm/dL (11.4-16.0); Hypochromasia Moderate; Lymphocytes % (A) 13 %; MCH 34.8 pg (25.0-35.0); MCHC 31.6 g/dL (31.0-37.0); MCV 110.1 fL (80.0-100.0); Macrocytosis Marked; Mean Platelet Volume 6.9; Monocytes # (A) 0.4 k/uL (0-1.0); Monocytes % (A) 5 %; Neutrophils # (A) 3.7 k/uL (1.3-7.7); Neutrophils % (A) 50 %; Platelet Count 432 k/uL (150-450); RBC 2.54 m/uL (3.80-5.40); RDW 19.1 % (11.5-15.5); WBC 7.4 k/uL (3.8-10.6)
[2019-01-24 09:03] LABS: African American GFR (CKD) >90 (>60 ml/min/1.73 sqM); Anion Gap 7 mmol/L; Blood Urea Nitrogen 7 mg/dL (7-17); Calcium 9.1 mg/dL (8.4-10.2); Carbon Dioxide 26 mmol/L (22-30); Chloride 101 mmol/L (98-107); Glucose 77 mg/dL (74-99); Magnesium 1.6 mg/dL (1.6-2.3); Potassium 3.4 mmol/L (3.5-5.1); Sodium 134 mmol/L (137-145)
[2019-01-24] MEDS ORDERED: POTASSIUM CHLORIDE 10 MEQ in WATER FOR INJECTION 1 100ML.BAG IVPB STA (09:41)
[2019-01-24 10:28] LABS: Poikilocytosis (M) Present
[2019-01-24] MEDS: TRIAMCINOLONE ACET 0.1% OINTMENT 15 GM TUBE TOPICAL SCH ×2 (10:38→20:43)
--- NOTE | 2019-01-24 12:01 | PN ---
PROGRESS NOTE Patient is seen for followup for hyponatremia. She was started on sodium chloride tabs yesterday and sodium level has improved to 134. Blood pressure is not significantly elevated. Therefore, we can continue with the sodium chloride tablets with close monitoring for volume status. PHYSICAL EXAMINATION: On examination today, blood pressure 122/67, heart rate 84 per minute. Patient is afebrile. EXAMINATION OF THE HEART: S1, S2. EXAMINATION OF THE LUNGS: Bilateral breath sounds are heard. Abdomen is soft, nontender. Examination of lower extremities shows no significant edema. STORE RECEIVING SPECIALIST EXAM: Grossly intact. LABS: Labs show sodium of 134, potassium 3.4, BUN of 7, serum creatinine 0.4 mg/dL. ASSESSMENT: 1. Hyponatremia which is hypovolemic, currently improved. May continue with the sodium chloride tabs with close monitoring of volume status and blood pressure as outpatient. 2. Small bowel obstruction, status post laparotomy with small-bowel resection and reduction of hernia. 3. Stage IV breast cancer. 4. Right ureteral stent. 5. Hypomagnesemia, status post replacement. PLAN: May continue with the sodium chloride tabs. Advance diet as per Surgery. Increase protein intake if tolerated. MMODL / IJN: [id number] /
--- NOTE | 2019-01-24 12:24 | P.PN ---
Subjective Progress Note Date: 01/24/19 Patient reports the she's feeling the same, abdominal pain is well controlled with medications, had some flatus passed last night and no bowel movement. Patient reports that she is feeling hungry and was requesting popsicles. In review of labs patient hemoglobin is 8.9 which is stable, renal functions are fine, but potassium is low at 3.4. Patient denies chest pain, headache, dizziness, palpitation, diaphoresis, nausea/vomiting and denies rest of the review system. Nurses reported no current issues with her. Objective - Vital Signs Vital signs: Vital Signs Temp 97.6 F 01/24/19 04:51 Pulse 84 01/24/19 04:51 Resp 16 01/24/19 04:51 BP 122/67 01/24/19 04:51 Pulse Ox 96 01/24/19 04:51 Intake & Output 01/23/19 01/24/19 01/24/19 18:59 06:59 18:59 Intake Total 450 Output Total 250 Balance 200 Intake: IV 450 Sodium Chloride 0.9% 1, 450 000 ml @ 50 mls/hr IV . Q20H [facility] Rx#:[id number] Output: Gastric Drainage 250 Other: Voiding Method Bedside Commode Bedside Commode Bedside Commode # Voids 1 1 - Constitutional General appearance: Present: cooperative, no acute distress - EENT EENT Comment(s): NG tube in place connected to low intermittent suction but at this point the suction is closed due to recent medications via NG tube. - Respiratory Respiratory: bilateral: CTA, negative: rales, rhonchi, wheezing - Cardiovascular Rhythm: regular Heart sounds: normal: S1, S2 Abnormal Heart Sounds: Absent: systolic murmur, diastolic murmur, S3 Gallop, S4 Gallop - Gastrointestinal Gastrointestinal Comment(s): Abdomen soft, bowel sounds very sluggish but can be heard over all 4 quadrant. No guarding, rigidity, tenderness or rebound detected. - Psychiatric Psychiatric: Present: A&O x's 3, appropriate affect, intact judgment & insight - Allied health notes Allied health notes reviewed: nursing - Labs CBC & Chem 7: 01/24/19 08:11 01/24/19 08:11 Labs: Abnormal Lab Results - Last 24 Hours (Table) 01/24/19 01/24/19 Range/Units 08:11 08:11 RBC 2.54 L (3.80-5.40) m/uL Hgb 8.9 L (11.4-16.0) gm/dL Hct 28.0 L (34.0-46.0) % MCV 110.1 H (80.0-100.0) fL RDW 19.1 H (11.5-15.5) % Macrocytosis Marked A Sodium 134 L (137-145) mmol/L Potassium 3.4 L (3.5-5.1) mmol/L Creatinine 0.44 L (0.52-1.04) mg/dL Assessment and Plan (1) Ileus Narrative/Plan: Patient NG tube with low intermittent suction will be continued as per surgical team's recommendations. Once patient's ileus resolves than her oral diet will be advanced as tolerated after clearance from the surgery. Current Visit: Yes Status: Chronic Priority: High Code(s): K56.7 - ILEUS, UNSPECIFIED SNOMED Code(s): 540872234 (2) SIADH (syndrome of inappropriate ADH production) Narrative/Plan: Sodium slowly improving we'll continue fluid restriction up to 1200 mL of tap water per day, sodium chloride tablets twice daily and low-dose IV normal saline. We'll continue to monitor electrolytes. Current Visit: Yes Status: Acute Code(s): E22.2 - SYNDROME OF INAPPROPRIATE SECRETION OF ANTIDIURETIC HORMONE SNOMED Code(s): 91446171 (3) Iron deficiency anemia Narrative/Plan: Hemoglobin stable, had a ground drop yesterday but I think that was measurement/processing difference and current hemoglobin is stable as compared to couple days ago. I will check CBC in the morning. Current Visit: Yes Status: Acute Code(s): D50.9 - IRON DEFICIENCY ANEMIA, UNSPECIFIED SNOMED Code(s): 19649693 (4) Severe protein-calorie malnutrition Narrative/Plan: Patient is nothing by mouth because of ileus she's been here for quite a long time, I will re-consult the dietitian for possibility of the need for parenteral nutrition initiation. Talked to Lanette (procurement technician) re: restarting TPN today. Current Visit: Yes Status: Acute Code(s): E43 - UNSPECIFIED SEVERE PROTEIN- CALORIE MALNUTRITION SNOMED Code(s): 897078685 (5) Metastatic breast cancer Current Visit: No Status: Chronic Priority: High Code(s): C50.919 - MALIGNANT NEOPLASM OF UNSP SITE OF UNSPECIFIED FEMALE BREAST SNOMED Code(s): 182499747
--- NOTE | 2019-01-24 14:09 | P.PN ---
Subjective Progress Note Date: 01/24/19 Principal diagnosis: Small bowel obstruction Patient says she feels about the same today. Nasogastric tube has put out about 600 mL. No flatus. Complaining of a sore throat. Mild abdominal discomfort. White blood cell count normal at 7.4. Yesterday's x-ray suggested distended small and large bowel consistent with ileus. Objective - Vital Signs Vital signs: Vital Signs Temp 97.7 F 01/24/19 11:21 Pulse 84 01/24/19 11:21 Resp 16 01/24/19 11:21 BP 118/70 01/24/19 11:21 Pulse Ox 98 01/24/19 11:21 Intake & Output 01/23/19 01/24/19 01/24/19 18:59 06:59 18:59 Intake Total 450 Output Total 250 Balance 200 Weight 58 kg Intake: IV 450 Sodium Chloride 0.9% 1, 450 000 ml @ 50 mls/hr IV . Q20H [facility] Rx#:[id number] Output: Gastric Drainage 250 Other: Voiding Method Bedside Commode Bedside Commode Bedside Commode # Voids 1 1 - Exam Abdomen: Soft, mild distention, mild tenderness, dressing clean and dry and - Labs CBC & Chem 7: 01/24/19 08:11 01/24/19 08:11 Labs: Abnormal Lab Results - Last 24 Hours (Table) 01/24/19 01/24/19 Range/Units 08:11 08:11 RBC 2.54 L (3.80-5.40) m/uL Hgb 8.9 L (11.4-16.0) gm/dL Hct 28.0 L (34.0-46.0) % MCV 110.1 H (80.0-100.0) fL RDW 19.1 H (11.5-15.5) % Eosinophils # 2.2 H (0-0.7) k/uL Macrocytosis Marked A Sodium 134 L (137-145) mmol/L Potassium 3.4 L (3.5-5.1) mmol/L Creatinine 0.44 L (0.52-1.04) mg/dL Assessment and Plan (1) S/P small bowel resection Narrative/Plan: Will order CT abdomen and pelvis to evaluate for possible obstruction. Keep nasogastric tube to suction. Current Visit: Yes Status: Acute Code(s): Z90.49 - ACQUIRED ABSENCE OF OTHER SPECIFIED PARTS OF DIGESTIVE TRACT SNOMED Code(s): 109778145667740
--- NOTE | 2019-01-24 15:18 | P.PN ---
Subjective Progress Note Date: 01/24/19 Principal diagnosis: SBO No acute complaints today Objective - Vital Signs Vital signs: Vital Signs Temp 97.7 F 01/24/19 11:21 Pulse 84 01/24/19 11:21 Resp 16 01/24/19 11:21 BP 118/70 01/24/19 11:21 Pulse Ox 98 01/24/19 11:21 Intake & Output 01/23/19 01/24/19 01/24/19 18:59 06:59 18:59 Intake Total 450 Output Total 250 Balance 200 Weight 58 kg Intake: IV 450 Sodium Chloride 0.9% 1, 450 000 ml @ 50 mls/hr IV . Q20H [facility] Rx#:[id number] Output: Gastric Drainage 250 Other: Voiding Method Bedside Commode Bedside Commode Bedside Commode # Voids 1 1 - Exam hysicalGeneral: Alert and Oriented x3, No Acute Distress Head: Normocytic, Atraumatic Neck: Supple Mouth: NG tube Heart: Tachy Lungs:Diminishe bilateral lower lobes, No increased respiratory effort noted Abdomen: Distended, Non-Tended, BSx4 Extremities: No Edema, Equal Strength Neurological: No Focal Defects: No sensory or motor deficits noted Psych: Calm and cooperative - Labs CBC & Chem 7: 01/25/19 09:19 01/26/19 06:47 Labs: Abnormal Lab Results - Last 24 Hours (Table) 01/24/19 01/24/19 Range/Units 08:11 08:11 RBC 2.54 L (3.80-5.40) m/uL Hgb 8.9 L (11.4-16.0) gm/dL Hct 28.0 L (34.0-46.0) % MCV 110.1 H (80.0-100.0) fL RDW 19.1 H (11.5-15.5) % Eosinophils # 2.2 H (0-0.7) k/uL Macrocytosis Marked A Sodium 134 L (137-145) mmol/L Potassium 3.4 L (3.5-5.1) mmol/L Creatinine 0.44 L (0.52-1.04) mg/dL Assessment and Plan (1) Abdominal pain Current Visit: Yes Status: Chronic Priority: High Code(s): R10.9 - UNSPECIFIED ABDOMINAL PAIN SNOMED Code(s): 92345979 (2) Dehydration Current Visit: Yes Status: Acute Code(s): E86.0 - DEHYDRATION SNOMED Code(s): 80643426 (3) Metastatic breast cancer Current Visit: No Status: Chronic Priority: High Code(s): C50.919 - MALIGNANT NEOPLASM OF UNSP SITE OF UNSPECIFIED FEMALE BREAST SNOMED Code(s): 900936364 (4) Small bowel obstruction Current Visit: No Status: Acute Code(s): K56.609 - UNSP INTESTNL OBST, UNSP TO PARTIAL VERSUS COMPLETE OBST SNOMED Code(s): 905313892 Plan: Assessment and Recommendations: Abdominal Pain and Obstruction: - Secondary to metastatic malignancy - Surgery Following - Currently tolerating clear liquids, paasing Flatus - Monitor per surgery Metastatic Breast Cancer: - Treated through [facility] - Please obtain all oncological records - Patient states distance is an issue with current provider Small bowel obstruction and volvulus s/p resection on 01/12/19, ow with ileus - Replaced NGT 01/23- Xray revealed ileus - NPO, ice chip and sips of water okay - Gen Surgery is followin - CT abd pending SIADH - Monitor Sodium Levels - Nephrology following, on IVF Severe protein calorie malnutrition - Currently NPO with NG - Dietitian recommendations when able to consume PO intake Macrocytic anemia - Folate and B12 within normal limits, iron studies within normal limits Ferritin >300 - Monitor CBC - Stable today Continue supportive care
[2019-01-24] MEDS ORDERED: MVI, ADULT NO.4 WITH VIT K 10 ML, TRACE (CONC-1ML/DOSE) 1 ML, POTASSIUM CHLORIDE 20 MEQ... IV ONE ×5 (16:00)
[2019-01-24 16:30] LABS: ALT 21 U/L (9-52); AST 17 U/L (14-36); African American GFR (CKD) >90 (>60 ml/min/1.73 sqM); Albumin 2.3 g/dL (3.5-5.0); Alkaline Phosphatase 47 U/L (38-126); Anion Gap 9 mmol/L; Blood Urea Nitrogen 6 mg/dL (7-17); Calcium 9.2 mg/dL (8.4-10.2); Carbon Dioxide 25 mmol/L (22-30); Chloride 99 mmol/L (98-107); Glucose 71 mg/dL (74-99); Magnesium 1.5 mg/dL (1.6-2.3); Phosphorus 3.2 mg/dL (2.5-4.5); Potassium 3.4 mmol/L (3.5-5.1); Sodium 133 mmol/L (137-145); Total Bilirubin 0.4 mg/dL (0.2-1.3); Total Protein 4.6 g/dL (6.3-8.2); Triglycerides 152 mg/dL (<150)
[2019-01-24] MEDS: FAT EMULSION 20% 250 ML IV SCH (17:03)
[2019-01-24] MEDS: ALPRAZolam 0.5 MG TAB PO PRN (21:34)
[2019-01-24] MEDS: ZOLPIDEM 5 MG TAB PO PRN (21:34)
[2019-01-25 00:08] LABS: Glucose,Whole Blood 99 mg/dL (75-99)
[2019-01-25] MEDS: MORPHINE SULFATE 2 MG/ML SYRINGE IVP PRN ×7 (01:01→22:21)
[2019-01-25] MEDS: METOCLOPRAMIDE 5 MG/ML 2 ML VIAL IVP SCH ×4 (03:28→21:47)
[2019-01-25] MEDS: ONDANSETRON 4 MG/2 ML VIAL IVP SCH ×4 (05:56→23:30)
[2019-01-25 06:03] LABS: Glucose,Whole Blood 127 mg/dL (75-99)
[2019-01-25] MEDS: IOPAMIDOL-300 CONTRAST 30 ML VIAL (ORAL USE) PO PRN ×2 (07:21→08:12)
[2019-01-25] MEDS: PANTOPRAZOLE 40 MG TABLET PO SCH (07:27)
[2019-01-25] MEDS: GABAPENTIN 100 MG CAP PO SCH ×3 (07:27→21:45)
[2019-01-25] MEDS: ASPIRIN 81 MG PO SCH (07:28)
[2019-01-25] MEDS: DOCUSATE 100 MG CAP PO SCH ×2 (07:28→21:36)
[2019-01-25] MEDS: HEPARIN SODIUM,PORCINE 5,000 UNIT/ML 1 ML VIAL SQ SCH ×3 (07:28→23:31)
[2019-01-25] MEDS: SODIUM CHLORIDE TAB 1 GM TAB PO SCH ×2 (07:29→21:47)
--- NOTE | 2019-01-25 07:56 | P.PN ---
Subjective Progress Note Date: 01/25/19 Principal diagnosis: SBO Objective - Vital Signs Vital signs: Vital Signs Temp 98.8 F 01/25/19 05:00 Pulse 85 01/25/19 05:00 Resp 16 01/25/19 05:00 BP 114/72 01/25/19 05:00 Pulse Ox 94 L 01/25/19 05:00 Intake & Output 01/24/19 01/25/19 01/25/19 18:59 06:59 18:59 Intake Total 959 Output Total 400 550 Balance -400 409 Weight 58 kg 55.5 kg Intake: IV 450 Sodium Chloride 0.9% 1, 450 000 ml @ 50 mls/hr IV . Q20H [facility] Rx#:[id number] Intake, IV Titration 459 Amount Fat Emulsion 20% 250 ml @ 189 20.833 mls/hr IV DAILY@ 1600 [facility] Rx#:[id number] Mvi, Adult No.4 with Vit 270 K 10 ml Trace (Conc-1Ml/ Dose) 1 ml Potassium Chloride 20 meq Magnesium Sulfate gm 2 gm In Amino Acid 5%-D15w+Lytes*E* 1, 000 ml @ 30 mls/hr IV . Q24H [facility] Rx#:[id number] Oral 50 Output: Gastric Drainage 400 550 Other: Voiding Method Bedside Commode Bedside Commode # Voids 1 1 - Exam hysicalGeneral: Alert and Oriented x3, No Acute Distress Head: Normocytic, Atraumatic Neck: Supple Mouth: NG tube Heart: Tachy Lungs:Diminishe bilateral lower lobes, No increased respiratory effort noted Abdomen: Distended, Non-Tended, BSx4 Extremities: No Edema, Equal Strength Neurological: No Focal Defects: No sensory or motor deficits noted Psych: Calm and cooperative - Labs CBC & Chem 7: 01/25/19 09:19 01/26/19 06:47 Labs: Abnormal Lab Results - Last 24 Hours (Table) 01/24/19 01/24/19 01/24/19 Range/Units 08:11 08:11 16:03 RBC 2.54 L (3.80-5.40) m/uL Hgb 8.9 L (11.4-16.0) gm/dL Hct 28.0 L (34.0-46.0) % MCV 110.1 H (80.0-100.0) fL RDW 19.1 H (11.5-15.5) % Eosinophils # 2.2 H (0-0.7) k/uL Macrocytosis Marked A Sodium 134 L 133 L (137-145) mmol/L Potassium 3.4 L 3.4 L (3.5-5.1) mmol/L BUN 6 L (7-17) mg/dL Creatinine 0.44 L 0.40 L (0.52-1.04) mg/dL Glucose 71 L (74-99) mg/dL POC Glucose (mg/dL) (75-99) mg/dL Magnesium 1.5 L (1.6-2.3) mg/dL Total Protein 4.6 L (6.3-8.2) g/dL Albumin 2.3 L (3.5-5.0) g/dL Triglycerides 152 H (<150) mg/dL 01/25/19 Range/Units 06:01 RBC (3.80-5.40) m/uL Hgb (11.4-16.0) gm/dL Hct (34.0-46.0) % MCV (80.0-100.0) fL RDW (11.5-15.5) % Eosinophils # (0-0.7) k/uL Macrocytosis Sodium (137-145) mmol/L Potassium (3.5-5.1) mmol/L BUN (7-17) mg/dL Creatinine (0.52-1.04) mg/dL Glucose (74-99) mg/dL POC Glucose (mg/dL) 127 H (75-99) mg/dL Magnesium (1.6-2.3) mg/dL Total Protein (6.3-8.2) g/dL Albumin (3.5-5.0) g/dL Triglycerides (<150) mg/dL Assessment and Plan (1) Abdominal pain Current Visit: Yes Status: Chronic Priority: High Code(s): R10.9 - UNSPECIFIED ABDOMINAL PAIN SNOMED Code(s): 27212015 (2) Dehydration Current Visit: Yes Status: Acute Code(s): E86.0 - DEHYDRATION SNOMED Code(s): 78458192 (3) Metastatic breast cancer Current Visit: No Status: Chronic Priority: High Code(s): C50.919 - MALIGNANT NEOPLASM OF UNSP SITE OF UNSPECIFIED FEMALE BREAST SNOMED Code(s): 005848642 (4) Small bowel obstruction Current Visit: No Status: Acute Code(s): K56.609 - UNSP INTESTNL OBST, UNSP TO PARTIAL VERSUS COMPLETE OBST SNOMED Code(s): 726151180 Plan: Assessment and Recommendations: Abdominal Pain and Obstruction: - Secondary to metastatic malignancy - Surgery Following - Currently tolerating clear liquids, paasing Flatus - Monitor per surgery Metastatic Breast Cancer: - Treated through [facility] - Please obtain all oncological records - Patient states distance is an issue with current provider Small bowel obstruction and volvulus s/p resection on 01/12/19, ow with ileus - Replaced NGT 01/23- Xray revealed ileus - NPO, ice chip and sips of water okay - Gen Surgery is followin - CT abd pending SIADH - Monitor Sodium Levels - Nephrology following, on IVF Severe protein calorie malnutrition - Currently NPO with NG - Dietitian recommendations when able to consume PO intake Macrocytic anemia - Folate and B12 within normal limits, iron studies within normal limits Ferritin >300 - Monitor CBC - Stable today Continue supportive care
[2019-01-25] MEDS: TRIAMCINOLONE ACET 0.1% OINTMENT 15 GM TUBE TOPICAL SCH ×2 (08:38→21:47)
--- NOTE | 2019-01-25 08:59 | P.PN ---
Subjective Progress Note Date: 01/25/19 Pt. reports that she is feeling the same and will do better if the tube from nose is removed. He reports that she had minimal flatus last night but nothing since then. Patient has nasogastric tube with low intermittent suction and had about 500 mL of suction overnight. Patient electrolytes are being monitored by dietitian and TPN is being adjusted accordingly. Patient denies abdominal pain as she received morphine about slightly more than an hour ago but nurse reported that patient abdominal pain complaints have improved over the past 24 hours. Patient denies chest pain, palpitation, fever, chills. Nurses reported no other issues with her. Objective - Vital Signs Vital signs: Vital Signs Temp 98.8 F 01/25/19 05:00 Pulse 85 01/25/19 05:00 Resp 16 01/25/19 05:00 BP 114/72 01/25/19 05:00 Pulse Ox 94 L 01/25/19 05:00 Intake & Output 01/24/19 01/25/19 01/25/19 18:59 06:59 18:59 Intake Total 959 Output Total 400 550 Balance -400 409 Weight 58 kg 55.5 kg Intake: IV 450 Sodium Chloride 0.9% 1, 450 000 ml @ 50 mls/hr IV . Q20H [facility] Rx#:[id number] Intake, IV Titration 459 Amount Fat Emulsion 20% 250 ml @ 189 20.833 mls/hr IV DAILY@ 1600 [facility] Rx#:[id number] Mvi, Adult No.4 with Vit 270 K 10 ml Trace (Conc-1Ml/ Dose) 1 ml Potassium Chloride 20 meq Magnesium Sulfate gm 2 gm In Amino Acid 5%-D15w+Lytes*E* 1, 000 ml @ 30 mls/hr IV . Q24H [facility] Rx#:[id number] Oral 50 Output: Gastric Drainage 400 550 Other: Voiding Method Bedside Commode Bedside Commode # Voids 1 1 1 - Constitutional General appearance: Present: cooperative, mild distress (From NG tube) - Neck Neck: Present: normal ROM. Absent: lymphadenopathy, rigidity, stridor, thyr omegaly - Respiratory Respiratory: bilateral: CTA, negative: diminished (Due to poor inspiratory effort), rales, rhonchi, wheezing - Cardiovascular Rhythm: regular Heart sounds: normal: S1, S2 Abnormal Heart Sounds: Absent: systolic murmur, diastolic murmur, S3 Gallop, S4 Gallop - Gastrointestinal General gastrointestinal: Present: decreased bowel sounds (All 4 quadrants), soft (Postoperative healing in process.), tenderness (Mildly tender diffusely.), umbilical hernia. Absent: distended, rigid - Neurologic Neurologic: Present: CNII-XII intact. Absent: focal deficits - Psychiatric Psychiatric: Present: A&O x's 3, appropriate affect - Allied health notes Allied health notes reviewed: nursing - Labs CBC & Chem 7: 01/24/19 08:11 01/24/19 16:03 Labs: Abnormal Lab Results - Last 24 Hours (Table) 01/24/19 01/24/19 01/24/19 Range/Units 08:11 08:11 16:03 RBC 2.54 L (3.80-5.40) m/uL Hgb 8.9 L (11.4-16.0) gm/dL Hct 28.0 L (34.0-46.0) % MCV 110.1 H (80.0-100.0) fL RDW 19.1 H (11.5-15.5) % Eosinophils # 2.2 H (0-0.7) k/uL Macrocytosis Marked A Sodium 134 L 133 L (137-145) mmol/L Potassium 3.4 L 3.4 L (3.5-5.1) mmol/L BUN 6 L (7-17) mg/dL Creatinine 0.44 L 0.40 L (0.52-1.04) mg/dL Glucose 71 L (74-99) mg/dL POC Glucose (mg/dL) (75-99) mg/dL Magnesium 1.5 L (1.6-2.3) mg/dL Total Protein 4.6 L (6.3-8.2) g/dL Albumin 2.3 L (3.5-5.0) g/dL Triglycerides 152 H (<150) mg/dL 01/25/19 Range/Units 06:01 RBC (3.80-5.40) m/uL Hgb (11.4-16.0) gm/dL Hct (34.0-46.0) % MCV (80.0-100.0) fL RDW (11.5-15.5) % Eosinophils # (0-0.7) k/uL Macrocytosis Sodium (137-145) mmol/L Potassium (3.5-5.1) mmol/L BUN (7-17) mg/dL Creatinine (0.52-1.04) mg/dL Glucose (74-99) mg/dL POC Glucose (mg/dL) 127 H (75-99) mg/dL Magnesium (1.6-2.3) mg/dL Total Protein (6.3-8.2) g/dL Albumin (3.5-5.0) g/dL Triglycerides (<150) mg/dL Assessment and Plan (1) Ileus Current Visit: Yes Status: Chronic Priority: High Code(s): K56.7 - ILEUS, UNSPECIFIED SNOMED Code(s): 269339608 (2) SIADH (syndrome of inappropriate ADH production) Current Visit: Yes Status: Acute Code(s): E22.2 - SYNDROME OF INAPPROPRIATE SECRETION OF ANTIDIURETIC HORMONE SNOMED Code(s): 22605917 (3) Iron deficiency anemia Current Visit: Yes Status: Acute Code(s): D50.9 - IRON DEFICIENCY ANEMIA, UNSPECIFIED SNOMED Code(s): 06348801 (4) Severe protein-calorie malnutrition Current Visit: Yes Status: Acute Code(s): E43 - UNSPECIFIED SEVERE PROTEIN- CALORIE MALNUTRITION SNOMED Code(s): 189539158 (5) Metastatic breast cancer Current Visit: No Status: Chronic Priority: High Code(s): C50.919 - MALIGNANT NEOPLASM OF UNSP SITE OF UNSPECIFIED FEMALE BREAST SNOMED Code(s): 692573941 Plan: Patient is slowly improving as her abdomen is not distended and her abdominal pain is slowly improving. She has intermittent passage of flatus but nothing since last night, although she had sluggish to diminished bowel sounds. Patient will be continued on TPN until she is resumed to good amount of calorie intake orally. It is noted that CT abdomen pelvis was ordered by surgery and depending upon the report for the care plan will be addressed. Time with Patient: Less than 30
--- NOTE | 2019-01-25 10:12 | CT ---
EXAMINATION TYPE: CT abdomen pelvis w con DATE OF EXAM: 01/25/2019 HISTORY: Evaluation of Ileus, history of recent small bowel resection with persistent pain. CT DLP: 950mGycm Automated Exposure Control for Dose Reduction was Utilized. CONTRAST: CT scan of the abdomen and pelvis is performed with oral and with IV Contrast, patient injected with 100 mL of Isovue 300. COMPARISON: CT abdomen and pelvis from 2 weeks ago. FINDINGS: LUNG BASES: There is persistent small to moderate size right pleural effusion with associated minerva sive atelectasis without significant change from prior study. Current study shows small left pleural effusion with associated compressive atelectasis, this was obscured by prominent stomach extending in to the left lower thorax on prior study. Small to tiny pericardial effusion is redemonstrated. LIVER/GB: Roughly 1 cm simple appearing thin-walled cyst central hepatic dome image 19 is redemonstra [place]. Cholecystectomy clips are again seen. PANCREAS: No significant abnormality is seen. SPLEEN: Some adjacent perisplenic ascites left lateral aspect is new from prior.. ADRENALS: No significant abnormality is seen. KIDNEYS: Symmetric cortical medullary uptake and excretion is seen on current study. There is redemon stration of prominent left-sided parapelvic cysts and stable 2 mm calculus upper to mid pole left kid rose coronal image 54. There is however interval passage of larger 4 mm calculus proximal left ureter level coronal image 41 with new mild left-sided pyelocaliectasis. There is persistent severe right-si ded hydronephrosis with 10 mm calculus lower pole level right kidney. There is stable right double-J ureter stent. BOWEL: Oral contrast reaches the rectum. There is no suspicious small large bowel dilatation. Low-ly ing cecum and right pelvis is seen. Stomach shows poor distention and is best suboptimally evaluated on current study. Moderate wall thickening towards the antrum is nonspecific. Evaluation while subopt imal secondary to lack of intra-abdominal fat. UTERUS/ADNEXA: Uterus surgically absent or markedly atrophic. LYMPH NODES: No greater than 1cm abdominal or pelvic lymph nodes are appreciated. OSSEOUS STRUCTURES: No significant abnormality is seen. OTHER: [id number] amount of free fluid in pelvis coronal image 44 is present. There is persist ent moderate diffuse subcutaneous edema or soft tissue anasarca slightly improved from prior. Interva l surgery with new vertical skin angelic noted. Mild to moderate mesenteric edema now present. There is persistent narrowing at celiac artery origin with poststenotic dilatation. Pneumatosis seen on prior study is not well visualized. IMPRESSION: Interval surgery. No complete bowel obstruction. Interval passage of 4 mm left renal calc ulus into proximal ureter causing mild to minimal left-sided hydronephrosis but not delayed excretion . Improving soft tissue anasarca. Developing abdominal and pelvic ascites. Celiac artery narrowings i s felt present.
[2019-01-25 10:15] LABS: Anisocytosis Slight; HCT 27.9 % (34.0-46.0); HGB 9.2 gm/dL (11.4-16.0); Hypochromasia Slight; MCH 35.7 pg (25.0-35.0); MCHC 33.1 g/dL (31.0-37.0); MCV 107.9 fL (80.0-100.0); Macrocytosis Marked; Mean Platelet Volume 7.2; Platelet Count 484 k/uL (150-450); RBC 2.58 m/uL (3.80-5.40); RDW 18.8 % (11.5-15.5); WBC 7.8 k/uL (3.8-10.6)
[2019-01-25 10:27] LABS: African American GFR (CKD) >90 (>60 ml/min/1.73 sqM); Anion Gap 6 mmol/L; Blood Urea Nitrogen 6 mg/dL (7-17); Calcium 8.4 mg/dL (8.4-10.2); Carbon Dioxide 28 mmol/L (22-30); Chloride 95 mmol/L (98-107); Glucose 125 mg/dL (74-99); Magnesium 1.4 mg/dL (1.6-2.3); Phosphorus 3.1 mg/dL (2.5-4.5); Potassium 2.9 mmol/L (3.5-5.1); Sodium 129 mmol/L (137-145)
[2019-01-25 11:21] LABS: Glucose,Whole Blood 127 mg/dL (75-99)
[2019-01-25] MEDS: POTASSIUM CHLORIDE 20 MEQ in WATER FOR INJECTION 1 100ML.BAG IVPB SCH ×3 (12:50→17:08)
[2019-01-25] MEDS: MAGNESIUM SULFATE-D5W PMX 1 GM in DEXTROSE/WATER 1 100ML.BAG IVPB SCH ×3 (12:54→17:08)
[2019-01-25] MEDS ORDERED: FUROSEMIDE 10 MG/ML 2 ML VIAL IV ONE (13:49)
--- NOTE | 2019-01-25 16:35 | PN ---
PROGRESS NOTE Patient is seen for followup for hyponatremia. This morning, her sodium is down to 129. The patient remains with PEG tube in place. She was started on TPN. She is also maintained on sodium chloride tabs. Blood pressure is not running high. In fact, it was low previously. EXAMINATION: Today blood pressure was 125/74, heart rate 77 per minute. Patient is afebrile. Examination of the heart S1, S2. Examination of the lungs, bilateral breath sounds are heard. Abdomen is soft, nontender. Examination of the lower extremities shows trace edema bilaterally. [employer] exam grossly intact. LAB: Shows sodium of 129, potassium 2.9, chloride 95, BUN 6, serum creatinine 0.38, hemoglobin 9.2 g/dL. Magnesium was 1.4. ASSESSMENT: 1. Hyponatremia, currently worsened. This is most likely related to recent initiation of the TPN. Sodium will be adjusted in the TPN. The patient is maintained on sodium chloride tabs, which I will continue. I will add a small dose of IV Lasix to help eliminate the free water. 2. Small-bowel obstruction status post laparotomy with small-bowel resection and reduction of hernia. 3. Stage IV breast cancer. 4. History of right ureteral stent. 5. Nephrolithiasis with evidence of a recent passage of a 4 mm calculus on the left side with mild left sided pelvocaliectasis. PLAN: 1. Increase sodium in TPN. 2. Continue with sodium chloride tabs. 3. IV Lasix 20 mg x1. 4. Repeat sodium this evening. MMODL / IJN: [id number] /
[2019-01-25 17:06] LABS: Glucose,Whole Blood 153 mg/dL (75-99)
[2019-01-25] MEDS: FAT EMULSION 20% 250 ML IV SCH (17:08)
--- NOTE | 2019-01-25 17:42 | P.PN ---
Subjective Progress Note Date: 01/25/19 Principal diagnosis: Small bowel obstruction Patient feels about the same. No nausea now that the nasogastric tube is in place. No bowel movement despite contrast from CAT scan reaching the rectum. CAT scan was reviewed. Proximal bowel loops to have some distention compared to the distal bowel loops however no levi obstruction is seen given the passage of contrast all the way to the distal rectum. CAT scan describes some ascites however no large volume fluid is present. Pain is controlled. Interestingly CAT scan does show a left ureteral stone although she denies pain left side. White blood cell count 7.8. Objective - Vital Signs Vital signs: Vital Signs Temp 97.9 F 01/25/19 11:18 Pulse 77 01/25/19 11:18 Resp 18 01/25/19 11:18 BP 125/74 01/25/19 11:18 Pulse Ox 99 01/25/19 11:18 Intake & Output 01/24/19 01/25/19 01/25/19 18:59 06:59 18:59 Intake Total 959 Output Total 400 550 Balance -400 409 Weight 58 kg 55.5 kg Intake: IV 450 Sodium Chloride 0.9% 1, 450 000 ml @ 50 mls/hr IV . Q20H [facility] Rx#:[id number] Intake, IV Titration 459 Amount Fat Emulsion 20% 250 ml @ 189 20.833 mls/hr IV DAILY@ 1600 [facility] Rx#:[id number] Mvi, Adult No.4 with Vit 270 K 10 ml Trace (Conc-1Ml/ Dose) 1 ml Potassium Chloride 20 meq Magnesium Sulfate gm 2 gm In Amino Acid 5%-D15w+Lytes*E* 1, 000 ml @ 30 mls/hr IV . Q24H [facility] Rx#:[id number] Oral 50 Output: Gastric Drainage 400 550 Other: Voiding Method Bedside Commode Bedside Commode # Voids 1 1 1 - Exam Abdomen: Soft, nondistended, non-tender, dressing clean and dry - Labs CBC & Chem 7: 01/25/19 09:19 01/25/19 09:19 Labs: Abnormal Lab Results - Last 24 Hours (Table) 01/25/19 01/25/19 01/25/19 Range/Units 06:01 09:19 09:19 RBC 2.58 L (3.80-5.40) m/uL Hgb 9.2 L (11.4-16.0) gm/dL Hct 27.9 L (34.0-46.0) % MCV 107.9 H (80.0-100.0) fL MCH 35.7 H (25.0-35.0) pg RDW 18.8 H (11.5-15.5) % Plt Count 484 H (150-450) k/uL Macrocytosis Marked A Sodium 129 L (137-145) mmol/L Potassium 2.9 L (3.5-5.1) mmol/L Chloride 95 L (98-107) mmol/L BUN 6 L (7-17) mg/dL Creatinine 0.38 L (0.52-1.04) mg/dL Glucose 125 H (74-99) mg/dL POC Glucose (mg/dL) 127 H (75-99) mg/dL Magnesium 1.4 L (1.6-2.3) mg/dL 01/25/19 01/25/19 Range/Units 11:20 17:04 RBC (3.80-5.40) m/uL Hgb (11.4-16.0) gm/dL Hct (34.0-46.0) % MCV (80.0-100.0) fL MCH (25.0-35.0) pg RDW (11.5-15.5) % Plt Count (150-450) k/uL Macrocytosis Sodium (137-145) mmol/L Potassium (3.5-5.1) mmol/L Chloride (98-107) mmol/L BUN (7-17) mg/dL Creatinine (0.52-1.04) mg/dL Glucose (74-99) mg/dL POC Glucose (mg/dL) 127 H 153 H (75-99) mg/dL Magnesium (1.6-2.3) mg/dL Assessment and Plan (1) S/P small bowel resection Narrative/Plan: Continue nasogastric tube to low intermittent suction. CAT scan suggested either PSP O over ileus. Given the patient's pathology concern regarding malignancy contributing to either dysmotility or partial obstruction. Hopefully can improve bowel function. Daily Dulcolax suppositories at this time. Possibly remove nasogastric tube tomorrow. Continue TPN. Current Visit: Yes Status: Acute Code(s): Z90.49 - ACQUIRED ABSENCE OF OTHER SPECIFIED PARTS OF DIGESTIVE TRACT SNOMED Code(s): 824368816712404
[2019-01-25] MEDS: SODIUM CHLORIDE 0.9% 1,000 ML IV SCH (19:17)
[2019-01-25] MEDS: ALPRAZolam 0.5 MG TAB PO PRN (21:45)
[2019-01-25] MEDS: BISACODYL 10 MG SUPP RECTAL SCH (21:45)
[2019-01-25] MEDS: ZOLPIDEM 5 MG TAB PO PRN (21:46)
[2019-01-25 23:53] LABS: Glucose,Whole Blood 155 mg/dL (75-99)
[2019-01-26] MEDS ORDERED: METOCLOPRAMIDE 5 MG/ML 2 ML VIAL ONE (02:45)
[2019-01-26] MEDS ORDERED: MORPHINE SULFATE 2 MG/ML SYRINGE ONE (02:45)
[2019-01-26] MEDS: ONDANSETRON 4 MG/2 ML VIAL IVP SCH ×3 (06:04→17:35)
[2019-01-26] MEDS: METOCLOPRAMIDE 5 MG/ML 2 ML VIAL IVP SCH ×4 (06:04→22:08)
[2019-01-26 06:05] LABS: Glucose,Whole Blood 150 mg/dL (75-99)
[2019-01-26 06:16] VITALS: RESP 16
[2019-01-26] MEDS: MORPHINE SULFATE 2 MG/ML SYRINGE IVP PRN ×5 (06:27→22:29)
[2019-01-26 07:55] LABS: African American GFR (CKD) >90 (>60 ml/min/1.73 sqM); Anion Gap 5 mmol/L; Blood Urea Nitrogen 10 mg/dL (7-17); Calcium 7.8 mg/dL (8.4-10.2); Carbon Dioxide 32 mmol/L (22-30); Chloride 95 mmol/L (98-107); Glucose 138 mg/dL (74-99); Magnesium 1.9 mg/dL (1.6-2.3); Phosphorus 3.4 mg/dL (2.5-4.5); Sodium 132 mmol/L (137-145)
[2019-01-26] MEDS: ASPIRIN 81 MG PO SCH (09:44)
[2019-01-26] MEDS: BISACODYL 10 MG SUPP RECTAL SCH (09:51)
[2019-01-26] MEDS: DOCUSATE 100 MG CAP PO SCH ×2 (09:51→22:07)
[2019-01-26] MEDS: GABAPENTIN 100 MG CAP PO SCH ×3 (09:51→22:07)
[2019-01-26] MEDS: SODIUM CHLORIDE TAB 1 GM TAB PO SCH ×2 (09:52→22:08)
[2019-01-26] MEDS: HEPARIN SODIUM,PORCINE 5,000 UNIT/ML 1 ML VIAL SQ SCH ×2 (09:52→17:35)
[2019-01-26] MEDS: TRIAMCINOLONE ACET 0.1% OINTMENT 15 GM TUBE TOPICAL SCH ×2 (10:27→22:25)
--- NOTE | 2019-01-26 11:34 | P.PN ---
Subjective Progress Note Date: 01/26/19 Principal diagnosis: SBO She continues to receive tpn and has NGT to LIS. She stated she passed flatus through night. She has no nausea since NG tube. She would like it removed. Her potassium 3.0 today. TPN adjustments per dieticien, and additional supplements per primary care. I am still waiting to see actual pathology and treatments she received from prior treating oncologist, a second request for these records has been sent. No cbc today, therefore will ensure to recheck in am. Objective - Vital Signs Vital signs: Vital Signs Temp 98.1 F 01/26/19 05:00 Pulse 81 01/26/19 08:30 Resp 16 01/26/19 08:30 BP 114/69 01/26/19 05:00 Pulse Ox 96 01/26/19 05:00 Intake & Output 01/25/19 01/26/19 01/26/19 18:59 06:59 18:59 Intake Total 680 Output Total 450 Balance 230 Weight 53.5 kg Intake: Intake, IV Titration 680 Amount Fat Emulsion 20% 250 ml @ 105 20.833 mls/hr IV DAILY@ 1600 [facility] Rx#:[id number] Magnesium Sulfate gm 1 gm 325 Potassium Chloride 10 meq Sodium Chloride 2. 5MEQ/ml Vial 15 meq In Amino Acid 5%-D15w+Lytes* E* 1,000 ml @ 65 mls/hr IV .BY DURATION [facility] Rx#: [id number] Sodium Chloride 0.9% 1, 250 000 ml @ 50 mls/hr IV . Q20H [facility] Rx#:[id number] Output: Gastric Drainage 450 Other: Voiding Method Bedside Commode Bedside Commode Diaper Diaper Incontinent Incontinent # Voids 1 2 # Bowel Movements 1 - Exam hysicalGeneral: Alert and Oriented x3, No Acute Distress Head: Normocytic, Atraumatic Neck: Supple Mouth: NG tube Heart: Tachy Lungs:Diminishe bilateral lower lobes, No increased respiratory effort noted Abdomen: Distended, Non-Tended, BSx4 Extremities: No Edema, Equal Strength Neurological: No Focal Defects: No sensory or motor deficits noted Psych: Calm and cooperative - Labs CBC & Chem 7: 01/25/19 09:19 01/26/19 06:47 Labs: Abnormal Lab Results - Last 24 Hours (Table) 01/25/19 01/25/1919 Range/Units 17:04 21:13 23:51 Sodium 130 L (137-145) mmol/L Potassium (3.5-5.1) mmol/L Chloride (98-107) mmol/L Carbon Dioxide (22-30) mmol/L Creatinine (0.52-1.04) mg/dL Glucose (74-99) mg/dL POC Glucose (mg/dL) 153 H 155 H (75-99) mg/dL Calcium (8.4-10.2) mg/dL 01/26/19 01/26/19 Range/Units 06:03 06:47 Sodium 132 L (137-145) mmol/L Potassium 3.0 L (3.5-5.1) mmol/L Chloride 95 L (98-107) mmol/L Carbon Dioxide 32 H (22-30) mmol/L Creatinine 0.36 L (0.52-1.04) mg/dL Glucose 138 H (74-99) mg/dL POC Glucose (mg/dL) 150 H (75-99) mg/dL Calcium 7.8 L (8.4-10.2) mg/dL Assessment and Plan (1) Abdominal pain Current Visit: Yes Status: Chronic Priority: High Code(s): R10.9 - UNSP ECIFIED ABDOMINAL PAIN SNOMED Code(s): 94089724 (2) Dehydration Current Visit: Yes Status: Acute Code(s): E86.0 - DEHYDRATION SNOMED Code(s): 52818250 (3) Metastatic breast cancer Current Visit: No Status: Chronic Priority: High Code(s): C50.919 - MALIGNANT NEOPLASM OF UNSP SITE OF UNSPECIFIED FEMALE BREAST SNOMED Code(s): 748026458 (4) Small bowel obstruction Current Visit: No Status: Acute Code(s): K56.609 - UNSP INTESTNL OBST, UNSP TO PARTIAL VERSUS COMPLETE OBST SNOMED Code(s): 955876504 Plan: Assessment and Recommendations: Abdominal Pain and Obstruction: - Secondary to metastatic malignancy - Surgery Following - Currently tolerating clear liquids, paasing Flatus - Monitor per surgery Metastatic Breast Cancer: - Treated through [facility] - Please obtain all oncological records - Patient states distance is an issue with current provider Small bowel obstruction and volvulus s/p resection on 01/12/19, ow with ileus - Replaced NGT 01/23- Xray revealed ileus - NPO, ice chip and sips of water okay - Gen Surgery is followin - CT abd pending SIADH - Monitor Sodium Levels - Nephrology following, on IVF Severe protein calorie malnutrition - Currently NPO with NG - Dietitian recommendations when able to consume PO intake - TPN currently Hypokalemia: - Potassium #,0, Mag stable 1.9 - Primary team to supplement please Macrocytic anemia - Folate and B12 within normal limits, iron studies within normal limits Ferritin >300 - Monitor CBC - will order am draw Continue supportive care CBC every other day Electrolyte imbalances per primary team and Dieticien Addendum: NGt has been removed and patient has had BM plan for HELENE per primary team during this time will obtain records and allow patient to work on increasing overall performance status and once discharged can follow-up with Dr. Reeves in office for further recommendations on options for systemic treatment of what appears to be progressive cancer RAY Patten
[2019-01-26 11:39] LABS: Glucose,Whole Blood 125 mg/dL (75-99)
--- NOTE | 2019-01-26 12:07 | P.PN ---
Subjective Progress Note Date: 01/26/19 CHIEF COMPLAINT: Small bowel obstruction HISTORY OF PRESENT ILLNESS: The patient is a 68-year-old female status post small bowel resection 2 with lysis of adhesion, 01/12/19. She is postoperative day 14. She feels much better than last week. She has had two bowel movements in 12 hrs. Ileus is resolved. She is passing flatus and is doing well. ROS: No reports of nausea and vomiting. No fevers or chills. No new chest pain. PHYSICAL EXAM: VITAL SIGNS: Reviewed CONSTITUTIONAL: Well developed and in no acute distress. EYES: Conjuctivae without sclera icterus. Extraocular movements grossly intact. HEAD, EARS, NOSE, THROAT: Moist buccal mucosa. Head is atraumatic, normocephalic. Hears conversational speech. No nasal drainage. NECK: Supple. No thyroidomegaly. RESPIRATORY: Non-labored respirations and equal bilateral excursions. CARDIOVASCULAR: Palpable 2+ radial pulses. Regular rate. Regular rhythm. ABDOMEN: Soft. Nontender. Nondistended. MUSCULOSKELETAL: No gross deformity of the lower extremities noted. No clubbing. No cyanosis. SKIN: Good skin turgor. Well perfused. NEUROLOGIC: Cranial nerves I through XII grossly intact. No focal or lateralizing signs. PSYCH: Appropriate affect. Alert and oriented to person, place and time. STUDIES: CT of the abdomen and pelvis independently reviewed demonstrating no obstruction. Contrast extends to the colon and rectum. Bilateral pleural effusion noted RADIOLOGY: Report reviewed also confirming no obstruction. CLINCAL LABS: White blood cell count normal. ASSESSMENT: 1. Small bowel obstruction 2. History of abnormal computed tomography scan with pneumatosis intestinalis 3. Metastatic breast cancer to her abdomen 4. Status post small bowel resection 5. Inadequate protein intake PLAN: 1. I personally removed her NGT 2. Start full liquid diet 3. Disposition in 24 hrs. Objective - Vital Signs Vital signs: Vital Signs Temp 98.1 F 01/26/19 05:00 Pulse 81 01/26/19 08:30 Resp 16 01/26/19 08:30 BP 114/69 01/26/19 05:00 Pulse Ox 96 01/26/19 05:00 Intake & Output 01/25/19 01/26/19 01/26/19 18:59 06:59 18:59 Intake Total 680 Output Total 450 Balance 230 Weight 53.5 kg Intake: Intake, IV Titration 680 Amount Fat Emulsion 20% 250 ml @ 105 20.833 mls/hr IV DAILY@ 1600 [facility] Rx#:[id number] Magnesium Sulfate gm 1 gm 325 Potassium Chloride 10 meq Sodium Chloride 2. 5MEQ/ml Vial 15 meq In Amino Acid 5%-D15w+Lytes* E* 1,000 ml @ 65 mls/hr IV .BY DURATION [facility] Rx#: [id number] Sodium Chloride 0.9% 1, 250 000 ml @ 50 mls/hr IV . Q20H [facility] Rx#:[id number] Output: Gastric Drainage 450 Other: Voiding Method Bedside Commode Bedside Commode Diaper Diaper Incontinent Incontinent # Voids 1 2 # Bowel Movements 1 - Labs CBC & Chem 7: 01/27/19 07:37 01/27/19 07:37 Labs: Abnormal Lab Results - Last 24 Hours (Table) 01/25/19 01/25/19 01/25/19 Range/Units 17:04 21:13 23:51 Sodium 130 L (137-145) mmol/L Potassium (3.5-5.1) mmol/L Chloride (98-107) mmol/L Carbon Dioxide (22-30) mmol/L Creatinine (0.52-1.04) mg/dL Glucose (74-99) mg/dL POC Glucose (mg/dL) 153 H 155 H (75-99) mg/dL Calcium (8.4-10.2) mg/dL 01/26/19 01/26/19 01/26/19 Range/Units 06:03 06:47 11:38 Sodium 132 L (137-145) mmol/L Potassium 3.0 L (3.5-5.1) mmol/L Chloride 95 L (98-107) mmol/L Carbon Dioxide 32 H (22-30) mmol/L Creatinine 0.36 L (0.52-1.04) mg/dL Glucose 138 H (74-99) mg/dL POC Glucose (mg/dL) 150 H 125 H (75-99) mg/dL Calcium 7.8 L (8.4-10.2) mg/dL Assessment and Plan (1) Abdominal pain Current Visit: Yes Status: Chronic Priority: High Code(s): R10.9 - UNSPECIFIED ABDOMINAL PAIN SNOMED Code(s): 23578606 (2) Dehydration Current Visit: Yes Status: Acute Code(s): E86.0 - DEHYDRATION SNOMED Code(s): 19048638 (3) Intractable vomiting Current Visit: Yes Status: Acute Code(s): R11.10 - VOMITING, UNSPECIFIED SNOMED Code(s): 014911298 (4) Metastatic breast cancer Current Visit: No Status: Chronic Priority: High Code(s): C50.919 - MALIGNANT NEOPLASM OF UNSP SITE OF UNSPECIFIED FEMALE BREAST SNOMED Code(s): 163602863 (5) Small bowel obstruction Current Visit: No Status: Acute Code(s): K56.609 - UNSP INTESTNL OBST, UNSP TO PARTIAL VERSUS COMPLETE OBST SNOMED Code(s): 341707550 (6) Iron deficiency anemia Current Visit: Yes Status: Acute Code(s): D50.9 - IRON DEFICIENCY ANEMIA, UNSPECIFIED SNOMED Code(s): 95447679 (7) Abnormal abdominal CT scan Current Visit: Yes Status: Acute Code(s): R93.5 - ABN FINDINGS ON DX IMAGING OF ABD REGIONS, INC RETROPERITON SNOMED Code(s): 22923300013726270 (8) S/P small bowel resection Current Visit: Yes Status: Acute Code(s): Z90.49 - ACQUIRED ABSENCE OF OTHER SPECIFIED PARTS OF DIGESTIVE TRACT SNOMED Code(s): 368424784254508 (9) Severe protein-calorie malnutrition Current Visit: Yes Status: Acute Code(s): E43 - UNSPECIFIED SEVERE PROTEIN- CALORIE MALNUTRITION SNOMED Code(s): 729768837
--- NOTE | 2019-01-26 16:01 | P.PN ---
Subjective Progress Note Date: 01/26/19 Principal diagnosis: ileus Patient was seen and examined. No acute events overnight. Able to bowel movement yesterday and today. States that she is passing gas. Tolerating clear liquids without any nausea or vomiting. She denies any chest pain, shortness of breath or palpitations. No fever or chills. NG tube discontinued today. Objective - Vital Signs Vital signs: Vital Signs Temp 97.9 F 01/26/19 11:57 Pulse 80 01/26/19 11:57 Resp 16 01/26/19 11:57 BP 123/76 01/26/19 11:57 Pulse Ox 96 01/26/19 11:57 Intake & Output 01/25/19 01/26/19 01/26/19 18:59 06:59 18:59 Intake Total 680 Output Total 450 Balance 230 Weight 53.5 kg Intake: Intake, IV Titration 680 Amount Fat Emulsion 20% 250 ml @ 105 20.833 mls/hr IV DAILY@ 1600 [facility] Rx#:[id number] Magnesium Sulfate gm 1 gm 325 Potassium Chloride 10 meq Sodium Chloride 2. 5MEQ/ml Vial 15 meq In Amino Acid 5%-D15w+Lytes* E* 1,000 ml @ 65 mls/hr IV .BY DURATION [facility] Rx#: [id number] Sodium Chloride 0.9% 1, 250 000 ml @ 50 mls/hr IV . Q20H [facility] Rx#:[id number] Output: Gastric Drainage 450 Other: Voiding Method Bedside Commode Bedside Commode Diaper Diaper Incontinent Incontinent # Voids 1 2 # Bowel Movements 1 1 - Exam General: [Appears ill], [no distress], [appears at stated age] Derm: [warm], [dry] Head: [atraumatic], [normocephalic], [symmetric] Eyes: [EOMI], [no lid lag], [anicteric sclera] Cardiovascular: [S1S2 reg], [no murmur], [positive DP pulse bilateral] Lungs: [CTA bilateral], [no rhonchi, no rales] , [no accessory muscle use] Abdominal: [soft], [improved bowel sounds, tenderness at the side of midline incision, dressing clean dry and intact], [no guarding], [no appreciable organomegaly] Ext: [no gross muscle atrophy], [no edema], [no contractures] Neuro: [no focal neuro deficits] Psych: [Alert], [oriented], [appropriate affect] - Labs CBC & Chem 7: 01/25/19 09:19 01/26/19 06:47 Labs: Abnormal Lab Results - Last 24 Hours (Table) 01/25/19 01/25/19 01/25/19 Range/Units 17:04 21:13 23:51 Sodium 130 L (137-145) mmol/L Potassium (3.5-5.1) mmol/L Chloride (98-107) mmol/L Carbon Dioxide (22-30) mmol/L Creatinine (0.52-1.04) mg/dL Glucose (74-99) mg/dL POC Glucose (mg/dL) 153 H 155 H (75-99) mg/dL Calcium (8.4-10.2) mg/dL 01/26/19 01/26/19 01/26/19 Range/Units 06:03 06:47 11:38 Sodium 132 L (137-145) mmol/L Potassium 3.0 L (3.5-5.1) mmol/L Chloride 95 L (98-107) mmol/L Carbon Dioxide 32 H (22-30) mmol/L Creatinine 0.36 L (0.52-1.04) mg/dL Glucose 138 H (74-99) mg/dL POC Glucose (mg/dL) 150 H 125 H (75-99) mg/dL Calcium 7.8 L (8.4-10.2) mg/dL Assessment and Plan Assessment: Small bowel obstruction and volvulus status post resection on 01/12/2019 Hypokalemia Right-sided pleural effusion with anasarca due to hypoalbuminemia Subclinical hypothyroidism Hyponatremia Macrocytic anemia Breast cancer, stage IV, metastasis to the abdomen Severe protein calorie malnutrition with BMI 21.5 POD 14. NG tube removed today. Plans: Continue TPN. Fentanyl for pain control. Discontinue Zosyn, no need for antibiotics on discharge as discussed with Dr. Etienne. Zofran or Reglan as needed for nausea or vomiting. Continue aggressive bowel regimen. Follow surgery recommendations. Potassium 3.0. Likely due to poor diet. Plans: Replace via protocol. O2 saturation maintaining. No plans on thoracentesis as per pulmonary recommendations. Albumin 1.8. Plans: O2 per NC to maintain O2 saturation greater than 92%. Diuresis as tolerated, watch for low BP. TSH 6.4, free T4 within normal limits. Likely due to acute illness. Plans: Repeat in 3 weeks. Needs follow-up with PCP. Sodium 132. Urine electrolytes indicate possible SIADH. Likely also secondary to low solute load. Plans: Daily BMP. Continue TPN. Would benefit from fluid restriction. Follow Nephrology recommendations. MCV 107.9, hemoglobin 9.2. Iron studies shows anemia chronic disease. B12 and folate within normal limits. Plans: Daily CBC. Transfuse if Hemoglobin less than 7. Plans: Management as per oncology. Hold Xeloda post surgery, will need outpatient follow up for re-initiation. [Had bowel movement yesterday and today. Passing gas. Hopefully if able to tolerate full liquid diet today, will DC tomorrow morning pending Surgery clearance.]
[2019-01-26] MEDS: POTASSIUM CHLORIDE 20 MEQ in WATER FOR INJECTION 1 100ML.BAG IVPB SCH ×2 (16:56→18:04)
[2019-01-26] MEDS: FAT EMULSION 20% 250 ML IV SCH (17:34)
[2019-01-26 17:48] LABS: Glucose,Whole Blood 110 mg/dL (75-99)
[2019-01-26] MEDS: SODIUM CHLORIDE 0.9% 1,000 ML IV SCH (22:23)
[2019-01-26] MEDS: ZOLPIDEM 5 MG TAB PO PRN (22:29)
[2019-01-26] MEDS: ALPRAZolam 0.5 MG TAB PO PRN (22:36)
[2019-01-27] MEDS: HEPARIN SODIUM,PORCINE 5,000 UNIT/ML 1 ML VIAL SQ SCH ×2 (00:53→07:37)
[2019-01-27] MEDS: ONDANSETRON 4 MG/2 ML VIAL IVP SCH ×3 (00:53→12:05)
[2019-01-27 00:56] LABS: Glucose,Whole Blood 91 mg/dL (75-99)
[2019-01-27] MEDS: METOCLOPRAMIDE 5 MG/ML 2 ML VIAL IVP SCH ×2 (04:01→07:41)
[2019-01-27 05:58] LABS: Glucose,Whole Blood 136 mg/dL (75-99)
[2019-01-27] MEDS: PANTOPRAZOLE 40 MG TABLET PO SCH (07:37)
[2019-01-27] MEDS: ASPIRIN 81 MG PO SCH (07:37)
[2019-01-27] MEDS: GABAPENTIN 100 MG CAP PO SCH (07:37)
[2019-01-27] MEDS: MORPHINE SULFATE 2 MG/ML SYRINGE IVP PRN ×2 (07:38→14:30)
[2019-01-27] MEDS: DOCUSATE 100 MG CAP PO SCH (07:38)
[2019-01-27] MEDS: SODIUM CHLORIDE TAB 1 GM TAB PO SCH (07:38)
[2019-01-27] MEDS: BISACODYL 10 MG SUPP RECTAL SCH (07:38)
[2019-01-27] MEDS: TRIAMCINOLONE ACET 0.1% OINTMENT 15 GM TUBE TOPICAL SCH (07:41)
[2019-01-27 07:58] LABS: Anisocytosis Slight; HCT 28.4 % (34.0-46.0); HGB 9.2 gm/dL (11.4-16.0); Hypochromasia Slight; MCHC 32.2 g/dL (31.0-37.0); MCV 108.6 fL (80.0-100.0); Macrocytosis Marked; Platelet Count 496 k/uL (150-450); RBC 2.61 m/uL (3.80-5.40); RDW 19.2 % (11.5-15.5); WBC 5.6 k/uL (3.8-10.6)
[2019-01-27 08:24] LABS: African American GFR (CKD) >90 (>60 ml/min/1.73 sqM); Anion Gap 3 mmol/L; Blood Urea Nitrogen 8 mg/dL (7-17); Carbon Dioxide 29 mmol/L (22-30); Chloride 100 mmol/L (98-107); Glucose 130 mg/dL (74-99); Magnesium 1.7 mg/dL (1.6-2.3); Phosphorus 3.8 mg/dL (2.5-4.5); Potassium 3.3 mmol/L (3.5-5.1); Sodium 132 mmol/L (137-145)
[2019-01-27 09:31] LABS: Band Neutrophils % 2 %; Basophils # (M) 0.06 k/uL (0-0.2); Eosinophils # (M) 1.12 k/uL (0-0.7); Lymphocytes # (M) 1.29 k/uL (1.0-4.8); Monocytes # (M) 0.73 k/uL (0-1.0); Neutrophils % (M) 41 %; Nucleated Red Blood Cells 0 /100 WBC (0-0); Total Cells Counted 100
[2019-01-27] MEDS: POTASSIUM CHLORIDE 20 MEQ in WATER FOR INJECTION 1 100ML.BAG IVPB SCH ×2 (09:53→11:59)
[2019-01-27 10:31] VITALS: BMI 17.4
[2019-01-27] MEDS: MAGNESIUM SULFATE-D5W PMX 1 GM in DEXTROSE/WATER 1 100ML.BAG IVPB SCH ×2 (10:46→12:00)
--- NOTE | 2019-01-27 11:59 | P.DS ---
Providers Date of admission: 01/07/19 13:38 Expected date of discharge: 01/27/19 Attending physician: Dennys Brito MD Consults: 01/06/19 20:43 Consult Physician Routine Consulting Provider: Bjorn Reeves Consult Reason/Comments: Metastatic breast cancer Do you want consulting provider notified?: Yes 01/11/19 23:54 Consult Physician Urgent Consulting Provider: Salma Downey Consult Reason/Comments: CT abd finding concerning for early signs of bowel necrosis Do you want consulting provider notified?: Yes 01/12/19 07:43 Consult Physician Urgent Consulting Provider: Salma Downey Consult Reason/Comments: pneumotosis intestinalysis Do you want consulting provider notified?: Yes 01/12/19 10:12 Consult Physician Urgent Consulting Provider: Dedra Black Consult Reason/Comments: large right pleural effusion, post op ICU care planned Do you want consulting provider notified?: Yes 01/17/19 10:09 Consult Physician Routine Consulting Provider: Naomi Oconnor Consult Reason/Comments: pain management Do you want consulting provider notified?: Yes 01/18/19 15:45 Consult Physician Stat Consulting Provider: Sav Gill Consult Reason/Comments: hyponatremia Do you want consulting provider notified?: Yes Primary care physician: Physician Nonstaff Hospital Course: The patient is a 68-year-old female with a PMH of multiple abdominal procedures (cholecystectomy, appendectomy, hysterectomy), multiple small bowel obstructions, stage IV metastatic breast cancer (follows at [facility], w/ mets in large bowel) currently on Xeloda oral chemotherapy oral chemotherapy, presented to the ED with complaints of abdominal pain, nausea, and diarrhea. She had recently been discharged on 01/05/2019 for the same problem. She notes that her symptoms are similar to her previous episodes of SBOs. Patient had undergone extensive evaluation at [facility] during her previous admission and CT abdomen had showed multiple masses in large bowel. The patient was subsequently admitted to our service for evaluation by surgery and symptomatic management. Patient was admitted for ileus as seen on KUB in the setting of stage IV metastatic breast cancer with multiple abdominal surgeries and adhesions. Gen. surgery was consulted and recommended conservative management. Oncology was consulted and recommended obtaining records from Dr. Clarke at [facility]. Patient was initially nothing by mouth, transitioned to clear liquid diet and advanced. She was given Zofran as needed for nausea or vomiting. patient reported increased abdominal pain on 01/11/2019 with decreased responsiveness to Dilaudid. She was started on fentanyl patch. CT of the abdomen and pelvis was ordered which showed small bowel obstruction and pneumatosis intestinalis as well as right-sided pleural effusion. Patient was seen by general surgery and taken to the OR, underwent small bowel resection on 01/12/2019 secondary to chronic small bowel extraction as well as small intestine volvulus. Postsurgery, patient had NG tube placed and was monitored in the ICU. Patient was downgraded from ICU on 01/18/2019. Patient had increased difficulty postprocedure and passing gas or having a bowel movement. She was placed on an aggressive bowel regimen and her Dilaudid was gradually discontinued and transitioned to home dose of morphine. Patient reported no bowel movements on January 21 with no passing of gas along with nausea and repeat computed tomography scan was performed. Computed tomography scan showed ileus. NG tube was placed by surgery and patient was placed again on an aggressive bowel regimen. Patient was able to have bowel movements in the following days. NG tube was discontinued. General surgery cleared the patient for discharge. Patient was seen and examined. No acute events overnight. Patient reports poor appetite due to the taste of food here. Discussed with Dr. Etienne, recommends getting food that patient would enjoy eating and DC today. She denies any chest pain, shortness of breath or palpitations. No nausea or vomiting. No fever or chills. Having bowel movements overnight. Passing gas. General: [Appears ill], [no distress], [appears at stated age] Derm: [warm], [dry] Head: [atraumatic], [normocephalic], [symmetric] Eyes: [EOMI], [no lid lag], [anicteric sclera] Cardiovascular: [S1S2 reg], [no murmur], [positive DP pulse bilateral] Lungs: [CTA bilateral], [no rhonchi, no rales] , [no accessory muscle use] Abdominal: [soft], [improved bowel sounds, tenderness at the side of midline incision, dressing clean dry and intact], [no guarding], [no appreciable organomegaly] Ext: [no gross muscle atrophy], [no edema], [no contractures] Neuro: [no focal neuro deficits] Psych: [Alert], [oriented], [appropriate affect] Small bowel obstruction and volvulus status post resection on 01/12/2019, new ileus on January 21 Hypokalemia Right-sided pleural effusion with anasarca due to hypoalbuminemia Subclinical hypothyroidism Hyponatremia Macrocytic anemia Breast cancer, stage IV, metastasis to the abdomen Severe protein calorie malnutrition with BMI 21.5 POD 15. NG tube removed yesterday. Plans: DC TPN and start feeding. Fentanyl for pain control. Discontinue Zosyn, no need for antibiotics on discharge as discussed with Dr. Etienne. Zofran or Reglan as needed for nausea or vomiting. Continue aggressive bowel regimen. Follow surgery recommendations. Potassium 3.0-3.3. Likely due to poor diet. Plans: Replace via protocol. Repeat BMP in 3 days. O2 saturation maintaining. No plans on thoracentesis as per pulmonary recommendations. Albumin 1.8. Plans: O2 per NC to maintain O2 saturation greater than 92%. Diuresis as tolerated, watch for low BP. TSH 6.4, free T4 within normal limits. Likely due to acute illness. Plans: Repeat in 3 weeks. Needs follow-up with PCP. Sodium 132. Urine electrolytes indicate possible SIADH. Likely also secondary to low solute load. Plans: Daily BMP. Would benefit from fluid restriction. Follow Nephrology recommendations. MCV 108.6, hemoglobin 9.2. Iron studies shows anemia chronic disease. B12 and folate within normal limits. Plans: Daily CBC. Transfuse if Hemoglobin less than 7. Plans: Management as per oncology. Hold Xeloda post surgery, will need outpatient follow up for re-initiation. [Had bowel movement yesterday and today. Passing gas. Plans for DC today.] Pertinent Studies: CT abdomen and pelvis 2, KUB Procedures: Exploratory laparotomy with bowel resection Patient Condition at Discharge: Stable Plan - Discharge Summary Discharge Rx Participant: No New Discharge Prescriptions: New fentaNYL 12MCG/HR PATCH [Duragesic 12MCG/HR] 1 patch TRANSDERM Q72H #1 patch fentaNYL 25MCG/HR PATCH [Duragesic 25MCG/HR] 1 patch TRANSDERM Q72H #1 patch Gabapentin [Neurontin] 200 mg PO TID #9 cap Pantoprazole [Protonix] 40 mg PO DAILY tablet. Sodium Chloride Tab 1 gm PO BID #0 tab Continue ALPRAZolam [Xanax] 0.5 mg PO TID PRN PRN Reason: Anxiety Aspirin EC [Ecotrin Low Dose] 81 mg PO DAILY Metoclopramide HCl [Reglan] 5 mg PO BID Mirabegron [Myrbetriq] 50 mg PO DAILY Docusate [Colace] 100 mg PO BID Zolpidem Tartrate [Ambien Cr] 12.5 mg PO HS #3 tab Morphine Sulfate Ir [MSIR] 15 mg PO BID PRN #6 tab PRN Reason: Pain Discontinued Capecitabine [Xeloda] 500 mg PO TID Discharge Medication List ALPRAZolam [Xanax] 0.5 mg PO TID PRN 01/02/19 [History] Aspirin EC [Ecotrin Low Dose] 81 mg PO DAILY 01/02/19 [History] Metoclopramide HCl [Reglan] 5 mg PO BID 01/02/19 [History] Docusate [Colace] 100 mg PO BID 01/06/19 [History] Mirabegron [Myrbetriq] 50 mg PO DAILY 01/06/19 [History] Gabapentin [Neurontin] 200 mg PO TID #9 cap 01/27/19 [Rx] Morphine Sulfate Ir [MSIR] 15 mg PO BID PRN #6 tab 01/27/19 [Rx] Pantoprazole [Protonix] 40 mg PO DAILY tablet. 01/27/19 [Rx] Sodium Chloride Tab 1 gm PO BID #0 tab 01/27/19 [Rx] Zolpidem Tartrate [Ambien Cr] 12.5 mg PO HS #3 tab 01/27/19 [Rx] fentaNYL 12MCG/HR PATCH [Duragesic 12MCG/HR] 1 patch TRANSDERM Q72H #1 patch 01/27/19 [Rx] fentaNYL 25MCG/HR PATCH [Duragesic 25MCG/HR] 1 patch TRANSDERM Q72H #1 patch 01/27/19 [Rx] Follow up Appointment(s)/Referral(s): Selin Grewal NPC [REFERRING] - 1-2 Days Bjorn Reeves MD [STAFF PHYSICIAN] - 02/24/19 2:45 pm Salma Downey MD [STAFF PHYSICIAN] - 02/01/19 [facility] [NON-STAFF] - Sav Gill DO [STAFF PHYSICIAN] - 1 Week Ambulatory/Diagnostic Orders: Complete Blood Count w/diff [LAB.AMB] Time Frame: 1 Day, Location: None Selected Comprehensive Metabolic Panel [LAB.AMB] Time Frame: 1 Day, Location: None Selected Patient Instructions/Handouts: High Protein / High Calorie Diet (DC), Bowel Resection (DC), Abdominal Binder (DC) Activity/Diet/Wound Care/Special Instructions: Diet as tolerated. May shower. No bath tub soaks until after seen by surgeon. Austin to be removed by surgeon. No lifting over 4 pounds for 4 weeks, February 12. REMOVE DRESSING Jan 23 Discharge Disposition: TRANSFER TO SNF/ECF
--- NOTE | 2019-01-27 12:10 | P.PN ---
Subjective Progress Note Date: 01/27/19 CHIEF COMPLAINT: Small bowel obstruction HISTORY OF PRESENT ILLNESS: The patient is a 68-year-old female status post small bowel resection 2 with lysis of adhesion, 01/12/19. She is postoperative day 15. She is surrounded by family at bedside. She has had more than 3 bowel movements a list in 2 days. No reports of abdominal pain. She does not like the hospital food. She craves pies. She is on TPN. ROS: No reports of nausea and vomiting. No fevers or chills. No new chest pain. PHYSICAL EXAM: VITAL SIGNS: Reviewed CONSTITUTIONAL: Well developed and in no acute distress. EYES: Conjuctivae without sclera icterus. Extraocular movements grossly intact. HEAD, EARS, NOSE, THROAT: Moist buccal mucosa. Head is atraumatic, normocephalic. Hears conversational speech. No nasal drainage. NECK: Supple. No thyroidomegaly. RESPIRATORY: Non-labored respirations and equal bilateral excursions. CARDIOVASCULAR: Palpable 2+ radial pulses. Regular rate. Regular rhythm. ABDOMEN: Austin clean dry and intact MUSCULOSKELETAL: No gross deformity of the lower extremities noted. No clubbi ng. No cyanosis. SKIN: Good skin turgor. Well perfused. NEUROLOGIC: Cranial nerves I through XII grossly intact. No focal or lateralizing signs. PSYCH: Appropriate affect. Alert and oriented to person, place and time. CLINCAL LABS: White blood cell count normal. Hgb is over 9.0 ASSESSMENT: 1. Small bowel obstruction 2. History of abnormal computed tomography scan with pneumatosis intestinalis 3. Metastatic breast cancer to her abdomen 4. Status post small bowel resection 5. Inadequate protein intake PLAN: 1. Patient cleared from a surgical standpoint for discharge. She is encouraged to eat a variety of foods. 2. Austin to be discontinued in 1-2 weeks secondary to poor protein intake. Objective - Vital Signs Vital signs: Vital Signs Temp 98.3 F 01/27/19 05:00 Pulse 76 01/27/19 05:00 Resp 16 01/27/19 05:00 BP 130/59 01/27/19 05:00 Pulse Ox 95 01/27/19 05:00 Intake & Output 01/26/19 01/27/19 01/27/19 18:59 06:59 18:59 Intake Total 1420 240 Output Total 400 Balance 1420 -160 Weight 47.5 kg 47.5 kg Intake: IV 400 Sodium Chloride 0.9% 1, 400 000 ml @ 50 mls/hr IV . Q20H [facility] Rx#:[id number] Intake, IV Titration 780 Amount Mvi, Adult No.4 with Vit 780 K 10 ml Trace (Conc-1Ml/ Dose) 1 ml Magnesium Sulfate gm 1 gm Potassium Chloride 10 meq Sodium Chloride 2.5MEQ/ml Vial 15 meq In Amino Acid 5%- D15w+Lytes*E* 1,000 ml @ 65 mls/hr IV .BY DURATION [facility] Rx#:[id number] Oral 240 240 Output: Urine 400 Other: Voiding Method Bedside Commode Bedside Commode Diaper Diaper Incontinent Incontinent # Bowel Movements 1 - Labs CBC & Chem 7: 01/27/19 07:37 01/27/19 07:37 Labs: Abnormal Lab Results - Last 24 Hours (Table) 01/26/19 01/27/19 01/27/19 Range/Units 17:47 05:57 07:37 RBC (3.80-5.40) m/uL Hgb (11.4-16.0) gm/dL Hct (34.0-46.0) % MCV (80.0-100.0) fL RDW (11.5-15.5) % Plt Count (150-450) k/uL Eosinophils # (Manual) (0-0.7) k/uL Macrocytosis Sodium 132 L (137-145) mmol/L Potassium 3.3 L (3.5-5.1) mmol/L Creatinine 0.36 L (0.52-1.04) mg/dL Glucose 130 H (74-99) mg/dL POC Glucose (mg/dL) 110 H 136 H (75-99) mg/dL Calcium 8.0 L (8.4-10.2) mg/dL 01/27/19 Range/Units 07:37 RBC 2.61 L (3.80-5.40) m/uL Hgb 9.2 L (11.4-16.0) gm/dL Hct 28.4 L (34.0-46.0) % MCV 108.6 H (80.0-100.0) fL RDW 19.2 H (11.5-15.5) % Plt Count 496 H (150-450) k/uL Eosinophils # (Manual) 1.12 H (0-0.7) k/uL Macrocytosis Marked A Sodium (137-145) mmol/L Potassium (3.5-5.1) mmol/L Creatinine (0.52-1.04) mg/dL Glucose (74-99) mg/dL POC Glucose (mg/dL) (75-99) mg/dL Calcium (8.4-10.2) mg/dL Assessment and Plan (1) Abdominal pain Current Visit: Yes Status: Chronic Priority: High Code(s): R10.9 - UNSPECIFIED ABDOMINAL PAIN SNOMED Code(s): 77232675 (2) Dehydration Current Visit: Yes Status: Acute Code(s): E86.0 - DEHYDRATION SNOMED Code(s): 52701863 (3) Intractable vomiting Current Visit: Yes Status: Acute Code(s): R11.10 - VOMITING, UNSPECIFIED SNOMED Code(s): 394586148 (4) Metastatic breast cancer Current Visit: No Status: Chronic Priority: High Code(s): C50.919 - MALIGNANT NEOPLASM OF UNSP SITE OF UNSPECIFIED FEMALE BREAST SNOMED Code(s): 593609329 (5) Small bowel obstruction Current Visit: No Status: Acute Code(s): K56.609 - UNSP INTESTNL OBST, UNSP TO PARTIAL VERSUS COMPLETE OBST SNOMED Code(s): 732181575 (6) Iron deficiency anemia Current Visit: Yes Status: Acute Code(s): D50.9 - IRON DEFICIENCY ANEMIA, UNSPECIFIED SNOMED Code(s): 45979834 (7) Abnormal abdominal CT scan Current Visit: Yes Status: Acute Code(s): R93.5 - ABN FINDINGS ON DX IMAGING OF ABD REGIONS, INC RETROPERITON SNOMED Code(s): 67384433732370855 (8) S/P small bowel resection Current Visit: Yes Status: Acute Code(s): Z90.49 - ACQUIRED ABSENCE OF OTHER SPECIFIED PARTS OF DIGESTIVE TRACT SNOMED Code(s): 613362149887996 (9) Severe protein-calorie malnutrition Current Visit: Yes Status: Acute Code(s): E43 - UNSPECIFIED SEVERE PROTEIN- CALORIE MALNUTRITION SNOMED Code(s): 992699026
[2019-01-27 12:20] LABS: Glucose,Whole Blood 116 mg/dL (75-99)
[2019-01-27 12:42] VITALS: BP 118/73; PULSE 78; TEMP 98.1
== END 2019-01-27 16:08 | DRG 329 ==
LOC: EC 16:15 → 4SSUR 20:45 → OBSVTOIN 01-07 13:38 → 3SCARD 01-12 01:33 → 2SICU 01-12 21:50 → 3NMEDONC 01-18 15:42
PROVIDERS: ADMIT Internal Medicine; ATTEND Internal Medicine
PROC: 0D9670Z Drainage of Stomach with Drainage Device, Via Natural or Artificial Opening (ICD-10-PCS; 2019-01-12)
PROC: 0DBB0ZZ Excision of Ileum, Open Approach (ICD-10-PCS; 2019-01-12)
PROC: 0DBA0ZZ Excision of Jejunum, Open Approach (ICD-10-PCS; 2019-01-12)
PROC: 0W9G0ZZ Drainage of Peritoneal Cavity, Open Approach (ICD-10-PCS; 2019-01-12)
PROC: 0DQV0ZZ Repair Mesentery, Open Approach (ICD-10-PCS; 2019-01-12)
PROC: 3E0436Z Introduction of Nutritional Substance into Central Vein, Percutaneous Approach (ICD-10-PCS; 2019-01-13)
PROC: 05H933Z Insertion of Infusion Device into Right Brachial Vein, Percutaneous Approach (ICD-10-PCS; principal; 2019-01-17 10:00)
DX: K56.52 Intestinal adhesions [bands] with complete obstruction (principal); E43 Unspecified severe protein-calorie malnutrition; K65.9 Peritonitis, unspecified; J18.9 Pneumonia, unspecified organism; K55.029 Acute infarction of small intestine, extent unspecified; C78.5 Secondary malignant neoplasm of large intestine and rectum; C78.4 Secondary malignant neoplasm of small intestine; E22.2 Syndrome of inappropriate secretion of antidiuretic hormone; Z68.1 Body mass index [BMI] 19.9 or less, adult; R64 Cachexia; J90 Pleural effusion, not elsewhere classified; C78.7 Secondary malignant neoplasm of liver and intrahepatic bile duct; E87.2 Acidosis; N13.2 Hydronephrosis with renal and ureteral calculous obstruction; R18.8 Other ascites; K46.0 Unspecified abdominal hernia with obstruction, without gangrene; K56.2 Volvulus; K56.7 Ileus, unspecified; I27.20 Pulmonary hypertension, unspecified; E83.42 Hypomagnesemia; E87.70 Fluid overload, unspecified; E87.5 Hyperkalemia; Z93.1 Gastrostomy status; E86.0 Dehydration; C50.912 Malignant neoplasm of unspecified site of left female breast; E86.1 Hypovolemia; G89.18 Other acute postprocedural pain; F32.9 Major depressive disorder, single episode, unspecified; G89.3 Neoplasm related pain (acute) (chronic); K46.9 Unspecified abdominal hernia without obstruction or gangrene; E87.6 Hypokalemia; D63.8 Anemia in other chronic diseases classified elsewhere; D50.9 Iron deficiency anemia, unspecified; D53.9 Nutritional anemia, unspecified; K63.89 Other specified diseases of intestine; E03.9 Hypothyroidism, unspecified; R62.7 Adult failure to thrive; R33.9 Retention of urine, unspecified; I25.2 Old myocardial infarction; I25.10 Atherosclerotic heart disease of native coronary artery without angina pectoris; K59.09 Other constipation; K57.30 Diverticulosis of large intestine without perforation or abscess without bleeding; G47.00 Insomnia, unspecified; G89.4 Chronic pain syndrome; K21.9 Gastro-esophageal reflux disease without esophagitis; I25.5 Ischemic cardiomyopathy; K40.90 Unilateral inguinal hernia, without obstruction or gangrene, not specified as recurrent; Z79.82 Long term (current) use of aspirin; Z79.899 Other long term (current) drug therapy; Z85.3 Personal history of malignant neoplasm of breast; Z90.710 Acquired absence of both cervix and uterus; Z71.3 Dietary counseling and surveillance; Z90.49 Acquired absence of other specified parts of digestive tract; Z92.3 Personal history of irradiation; Z95.0 Presence of cardiac pacemaker; Z86.73 Personal history of transient ischemic attack (TIA), and cerebral infarction without residual deficits; Z95.5 Presence of coronary angioplasty implant and graft; Z80.9 Family history of malignant neoplasm, unspecified
CPT/HCPCS: 36410; 36415; 36600; 71045; 74018; 74019; 74177; 76937; 80048; 80053; 81001; 82040; 82150; 82330; 82550; 82607; 82728; 82747; 82805; 83540; 83550; 83605; 83690; 83735; 83930; 83935; 84100; 84132; 84295; 84300; 84439; 84443; 84478; 84550; 85025; 85027; 85610; 85730; 86300; 86850; 86900; 86901; 87040; 87086; 88307; 88341; 88342; 96361; 96374; 96375; 96376; 99285

== ENCOUNTER → 2019-03-09 | Outpatient (CLI) | payer MEDICARE, OTHER ==
[2019-03-09 10:19] LABS: African American GFR (CKD) >90 (>60 ml/min/1.73 sqM); Blood Urea Nitrogen 8 mg/dL (7-17)
--- NOTE | 2019-03-09 13:20 | CT ---
EXAMINATION TYPE: CT chest w con DATE OF EXAM: 03/09/2019 COMPARISON: CT abdomen 01/25/2019 HISTORY: Breast cancer, left shoulder pain CT DLP: 950 mGycm Automated exposure control for dose reduction was used. CONTRAST: CT scan of the chest is performed with IV Contrast, patient injected with 100 mL of Isovue 300. FINDINGS: Stent is present along the left subclavian vein region, difficult to state with certainty a s to whether or not there is enhancement, flow within the stent, contrast was injected via the opposi te upper extremity. There is a Port-A-Cath in the right pectoral region, catheter courses via the rig ht subclavian approach, right subclavian vein stenosis is suspected, distal tip the catheter courses to the level of the cavoatrial junction. LUNGS: There is a right pleural effusion greater than left, there is associated atelectatic change MEDIASTINUM: There are no greater than 1 cm hilar or mediastinal lymph nodes. No pericardial effusi on is seen. Small pericardial effusion. AORTA: No additional significant abnormality is seen. OTHER: Striated appearance within the fourth thoracic vertebral body and 12 thoracic vertebral body consistent with hemangiomas. Within the fifth thoracic vertebral body there is loss of height of appr oximately 75% with a sclerotic appearance, only minimal retropulsion, no significant central stenosis . The kidneys show hydronephrosis on the right. Patient is post cholecystectomy. There is mild promin ence of biliary ductal system. Available cyst at the level of the dome within the right lower liver i s stable. Question some colonic wall thickening the level of the splenic flexure. Difficult to exclud e mucosal mass. IMPRESSION: Right pleural effusion greater than left. Right-sided hydronephrosis. Fracture of the T 5 vertebral body could possibly be pathologic. Correlate with bone scan. Postprocedural changes as de scribed. Findings within the descending colon as described. Small pericardial effusion.
--- NOTE | 2019-03-09 14:40 | NM ---
EXAMINATION TYPE: NM bone scan whole body DATE OF EXAM: 03/09/2019 COMPARISON: NONE HISTORY: Breast cancer Delayed whole-body scanning was performed following the injection of 22.8 mCi Tc 99m MDP. Images acq uired 3.25 hours post injection. FINDINGS: There is severe right-sided hydronephrosis. Abnormal uptake in the upper thoracic vertebral body is seen which is linear in configuration and cor responds to the severe compression fracture seen by CT scan. Faint uptake seen in involving the lumbar spine and lower thoracic spine near the thoracolumbar junct ion likely is degenerative and corresponds to the CT abnormality of degenerative disc disease. No suspicious additional uptake. IMPRESSION: 1. Intense linear uptake upper thoracic vertebral segment corresponds to the CT abnormality of compre ssion fracture suggesting acute component. 2. Severe right hydronephrosis.
== END ==
LOC: RADNMMAIN 09:34
PROVIDERS: ATTEND Internal Medicine Hematology & Oncology
DX: J90 Pleural effusion, not elsewhere classified (principal); N13.30 Unspecified hydronephrosis; S22.059A Unspecified fracture of T5-T6 vertebra, initial encounter for closed fracture; I31.3 Pericardial effusion (noninflammatory); C50.919 Malignant neoplasm of unspecified site of unspecified female breast; Z98.890 Other specified postprocedural states
CPT/HCPCS: 82565; 84520; 71260; 36415; 78306; A9503; Q9967

== ENCOUNTER 2019-04-06 13:58 | Inpatient (IN) | payer MEDICARE, OTHER ==
--- NOTE | 2019-04-06 15:15 | CT ---
EXAMINATION TYPE: CT thoracic spine wo con DATE OF EXAM: 04/06/2019 COMPARISON: 03/09/2019 HISTORY: Back pain without injury. History of breast cancer CT DLP: 389.5 mGycm Automated exposure control for dose reduction was used. Unenhanced CT of the thoracic spine was perfo rmed in the axial coronal and sagittal planes with bone and soft tissue window settings submitted. FINDINGS: Again noted is a severe compression fracture involving T5 with loss of height estimated at at least 8 0%. Sclerotic appearance is noted of this vertebral segment. There is no significant bony retropulsio n. There is a new compression fracture estimated at 50% loss of height involving the T7 segment with bony retropulsion identified of 2.2 mm. There is surrounding paraspinal hematoma. No evidence for cor d compression. No additional fractures identified. Hemangioma suggested of L1. Scattered degenerative changes noted. 1.0 cm hypoattenuating lesion left hepatic lobe. Basilar pleural effusions and compressive atelectasi s. Left apical pleural-based masslike density with internal calcifications measures 2.2 cm. IMPRESSION: 1. New compression fracture involving the T7 vertebral segment with minimal bony retropulsion. 2. Stable compression fracture of T5 with bony sclerosis noted. 3. Additional findings as above.
--- NOTE | 2019-04-06 15:20 | ED ---
General Adult HPI - General Source: patient, EMS Mode of arrival: EMS Limitations: no limitations <Dacia Fermin - Last Filed: 04/06/19 16:24> <Julio C Jeffrey - Last Filed: 04/06/19 16:48> - General Chief complaint: Back Pain/Injury Stated complaint: Back fracture Time Seen by Provider: 04/06/19 14:08 - History of Present Illness Initial comments: 68-year-old female patient with past medical history significant for metastatic breast cancer presents to the emergency department today as a transfer from [facility] for spinal fractures. Patient woke Thursday morning with onset of severe mid upper back pain. She went to her primary care physician on Thursday and was given a prescription for oxycodone which has not helped with her pain. Today she presented to the emergency department where she underwent x-ray of her chest was found to have new compression fractures of T4 and T6. These did appear to be burst-type fractures with some mild retropulsion posteriorly so she was sent here for further evaluation. Patient reports that she has some mild mid upper back pain but is currently resting comfortably. She is reporting some tingling to her bilateral fingers but states this is from her chemotherapy. She denies any numbness, tingling, weakness to the lower extremities. She denies any known injury to the back. Patient denies any recent rash, fever, chills, shortness breath, chest pain, abdominal pain, nausea, vomiting, diarrhea, constipation, back pain, dizziness, weakness, hematuria, dysuria, urinary urgency, urinary frequency, headache, visual changes, or any other complaints. (Dacia Fermin) - Related Data Home Medications Medication Instructions Recorded Confirmed ALPRAZolam [Xanax] 0.5 mg PO TID PRN 01/02/19 04/06/19 Capecitabine [Xeloda] 500 - 1,000 mg PO DIRECTED 04/06/19 04/06/19 Polyethylene Glycol 3350 [Miralax] 17 gm PO BID 04/06/19 04/06/19 oxyCODONE HCL [Oxaydo] 5 - 10 mg PO Q6H PRN 04/06/19 04/06/19 Previous Rx's Medication Instructions Recorded Zolpidem Tartrate [Ambien Cr] 12.5 mg PO HS #3 tab 01/27/19 fentaNYL 12MCG/HR PATCH [Duragesic 1 patch TRANSDERM Q72H #1 patch 01/27/19 12MCG/HR] fentaNYL 25MCG/HR PATCH [Duragesic 1 patch TRANSDERM Q72H #1 patch 01/27/19 25MCG/HR] Allergies Allergy/AdvReac Type Severity Reaction Status Date / Time No Known Allergies Allergy Verified 04/06/19 16:20 Review of Systems ROS Other: All systems not noted in ROS Statement are negative. <Dacia Fermin - Last Filed: 04/06/19 16:24> ROS Other: All systems not noted in ROS Statement are negative. <Julio C Jeffrey - Last Filed: 04/06/19 16:48> ROS Statement: Those systems with pertinent positive or pertinent negative responses have been documented in the HPI. Past Medical History Past Medical History: Cancer Additional Past Medical History / Comment(s): Metastatic breast cancer, details discussed above and the patient was receiving oral Xeloda History of Any Multi-Drug Resistant Organisms: None Reported Past Surgical History: Appendectomy, Cholecystectomy, Hysterectomy Additional Past Surgical History / Comment(s): Lumpectomy involving the left breast, previous history of abdominal surgery for small bowel obstruction Past Anesthesia/Blood Transfusion Reactions: No Reported Reaction Past Psychological History: No Psychological Hx Reported Smoking Status: Never smoker Past Alcohol Use History: None Reported Past Drug Use History: None Reported - Past Family History Father Family Medical History: Cancer Mother Family Medical History: Cancer <Dacia Fermin [place] - Last Filed: 04/06/19 16:24> General Exam Limitations: no limitations General appearance: alert, in no apparent distress, other Eye exam: Present: normal appearance, PERRL, EOMI. Absent: scleral icterus, conjunctival injection, periorbital swelling ENT exam: Present: normal exam, normal oropharynx, mucous membranes moist Respiratory exam: Present: normal lung sounds bilaterally. Absent: respiratory distress, wheezes, rales, rhonchi, stridor Cardiovascular Exam: Present: regular rate, normal rhythm, normal heart sounds. Absent: systolic murmur, diastolic murmur, rubs, gallop, clicks GI/Abdominal exam: Present: soft, normal bowel sounds. Absent: distended, tenderness, guarding, rebound, rigid Back exam: Present: vertebral tenderness (thoracic) Neurological exam: Present: alert, oriented X3, CN II-XII intact, other (Strength in all four extremities is 5/5. ) Psychiatric exam: Present: normal affect, normal mood Skin exam: Present: warm, dry, intact, normal color. Absent: rash <Dacia Fermin - Last Filed: 04/06/19 16:24> Course <Julio C Jeffrey - Last Filed: 04/06/19 16:48> Vital Signs 04/06/19 14:01 Temperature 97.6 F Pulse Rate 69 Respiratory 16 Rate Blood Pressure 146/87 O2 Sat by Pulse 98 Oximetry - Reevaluation(s) Reevaluation #1: 04/06/19 16:46 And P supervision: I personally did evaluate this case and [id number] evaluation the patient she was transferred from [facility] after presenting there with complaints of back pain going on for 4 days. He does have a history of metastatic breast cancer. Was sent here for further evaluation of intractable pain with suspicion of acute fractures of T4 and T6 CAT scan here did reveal a compression fracture of T7 was some minimal retropulsion. I did discuss the case with Carolyn Rae covering for Dr. Lal. Patient be admitted as a did discuss the case with Dr. Acosta (Julio C Jeffrey) Medical Decision Making - Radiology Data Radiology results: report reviewed, image reviewed <Dacia Fermin - Last Filed: 04/06/19 16:24> - Medical Decision Making 68-year-old female patient percents to the emergency department today as a transfer from [facility]. She is having mid upper back pain and chest x-ray showed evidence for compression fractures. CT of the thoracic spine was obtained here and showed evidence for T7 compression fracture with retropulsion. There is also some evidence for surrounding hematoma. Patient is neurologically intact. She will be admitted to the hospital for further evaluation by irrigation installation specialist. (Dacia Fermin) - Radiology Data CT thoracic spine without contrast was obtained. Report reviewed in its entirety. Impression by Dr. Ma shows new compression fracture involving the T7 vertebral segment with minimal body retropulsion. Stable compression fracture of T5 with bony sclerosis noted. Additional findings as above. ( Dacia Fermin) Disposition Decision to Admit Reason: Admit from Decision Date: 04/06/19 Decision Time: 16:24 <Dacai Fermin - Last Filed: 04/06/19 16:24> <Julio C Jeffrey - Last Filed: 04/06/19 16:48> Clinical Impression: Compression fracture of T7 vertebra, Intractable pain Disposition: ADMITTED IP TO THIS [facility] Condition: Serious Referrals: Demarco Stroud MD [Primary Care Provider] - 1-2 days
[2019-04-06] MEDS ORDERED: NALOXONE 0.4 MG/ML 1 ML VIAL IV PRN (16:21)
[2019-04-06] MEDS ORDERED: HYDROmorphone 1 MG/ML 1 ML SYRINGE IVP STA (16:21)
--- NOTE | 2019-04-06 18:53 | P.HPIM ---
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 secondary to increased back pain. She had initially seen her family physician on Thursday and started oxycodone in addition to her fentanyl patch on Thursday. However her pain was so severe today that she presented to the emergency department. She underwent x- ray evaluation there which showed abnormalities at T4 and T6 with suspected fractures. She was therefore transferred to our facility for spine evaluation. On arrival here she underwent a CT of the thoracic spine which showed a new compression fracture involving the T7 vertebral settlement with minimal bony retropulsion and surrounding paraspinal hematoma but no evidence of cord compression and a stable compression fracture of T5 with bony sclerosis. In the ER she was treated with pain medications and arrangements were made for admission. Patient seen and examined at bedside. She reports that she saw her PCP Dr. Nori soliz on Thursday and a habematolel story as listed above. She states that she awoke Thursday evening and was having sudden onset back pain. This was not precipitated by any unusual behaviors such as lifting heavy things, falls, or increased strenuous activity. She states the pain in her back was so severe it took her breath away. She describes the pain as mostly left sided below her shoulder blade without radiation. It is worse with movement and better with rest. Specifically it is worse when trying to go from laying to sitting, or sitting to standing. She does report some increased numbness in her left hand and left feet. 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 She states that she has felt that her legs been weaker since Thursday. She had to start using her walker again. And she also reports decreased appetite. She reports constipation that has worsened and she has not had a bowel movement in 2 days. She typically uses MiraLAX twice daily and is normal bowel movements. She reports no unusual weight loss. She states she was doing well with bowel movements until 2 days ago. She denies any changes in urination. Patient follows with Dr. Reeves for her metastatic breast cancer. She states she was last seen in March. Review of nuclear medicine bone scan from March 09 showed a thoracic vertebral compression fracture that appeared acute at T5. This was followed by a CT chest which showed a T5 75% sclerosis with some retropulsion. Past Medical History Past Medical History: Cancer Additional Past Medical History / Comment(s): Metastatic breast cancer with metastases the large bowel and liver and spine. SIADH, Hydronephrosis, subclinical hypothyrodisim, protein calorie malnutrition, History of Any Multi-Drug Resistant Organisms: None Reported Past Surgical History: Appendectomy, Cholecystectomy, Hysterectomy Additional Past Surgical History / Comment(s): Lumpectomy involving the left breast, previous history of abdominal surgery for small bowel obstruction, right uretheral stent with removal, left subclavian stent secondary to stenosis Past Anesthesia/Blood Transfusion Reactions: No Reported Reaction Past Psychological History: No Psychological Hx Reported Smoking Status: Never smoker Past Alcohol Use History: None Reported Past Drug Use History: None Reported Additional History: Lives with her brother, using a walker currently - Past Family History Father Family Medical History: Cancer Mother Family Medical History: Cancer Medications and Allergies Home Medications Medication Instructions Recorded Confirmed Type ALPRAZolam [Xanax] 0.5 mg PO TID PRN 01/02/19 04/06/19 History Zolpidem Tartrate [Ambien Cr] 12.5 mg PO HS #3 tab 01/27/19 04/06/19 Rx fentaNYL 12MCG/HR PATCH [Duragesic 1 patch TRANSDERM Q72H #1 patch 01/27/19 04/06/19 Rx 12MCG/HR] fentaNYL 25MCG/HR PATCH [Duragesic 1 patch TRANSDERM Q72H #1 patch 01/27/19 04/06/19 Rx 25MCG/HR] Capecitabine [Xeloda] 500 - 1,000 mg PO DIRECTED 04/06/19 04/06/19 History Polyethylene Glycol 3350 [Miralax] 17 gm PO BID 04/06/19 04/06/19 History oxyCODONE HCL [Oxaydo] 5 - 10 mg PO Q6H PRN 04/06/19 04/06/19 History Allergies Allergy/AdvReac Type Severity Reaction Status Date / Time No Known Allergies Allergy Verified 04/06/19 16:20 Physical Exam Osteopathic Statement: *. No significant issues noted on an osteopathic structural exam other than those noted in the History and Physical/Consult. Vitals: Vital Signs Temp Pulse Resp BP Pulse Ox 04/06/19 17:18 88 16 130/93 04/06/19 14:01 97.6 F 69 16 146/87 98 Intake and Output 04/06/19 04/06/19 04/06/19 06:59 14:59 22:59 Other: Weight 48.081 kg General: ill appearing, moderate distress due to pain, appears at stated age, cachetic with temporal wasting Derm: no unusual rashes/lesions no unusual ecchymoses, warm, dry Head: atraumatic, normocephalic, symmetric Eyes: EOMI, no lid lag, anicteric sclera, pupils equal round reactive to light ENT: Nose and ears atraumatic, no thrush, no pharyngeal erythema Neck: No thyromegaly, no cervical lymphadenopathy, trachea midline, supple Mouth: no lip lesion, mucus membranes moist Cardiovascular: S1S2 reg, no murmur, positive posterior tibial pulse bilateral, no edema, capillary refill less than 2 seconds Lungs: CTA bilateral, no rhonchi, no rales , no accessory muscle use Abdominal: soft, nontender to palpation, no guarding, no appreciable organomegaly, normal bowel sounds Ext: no gross muscle atrophy, muscle strength 4 out of 5 in all 4 extremities grossly, no contractures, Neuro: CN II-XI grossly intact, light touch diminished in left LE and LUE, intact b/l face, finger to nose within normal limits, Psych: Alert, oriented, appropriate affect Thrombosis Risk Factor Assmnt - DVT/VTE Prophylaxis DVT/VTE Prophylaxis: Mechanical Prophylaxis ordered - Choose All That Apply Each Risk Factor Represents 2 Points: Age 61-74 years, Malignancy Thrombosis Risk Factor Assessment Total Risk Factor Score: 4 Thrombosis Risk Factor Assessment Level: Moderate Risk Assessment and Plan Assessment: Intractable back pain secondary to acute T7 fracture with chronic T5 fracture with retropulsion likely related to metastatic disease from breast cancer -We will increase fentanyl patch from a total of 37 g to 50 g. IV Dilaudid overnight tonight with transition to oral medications in the morning. Failed oxycodone. -Consult orthopedic spine surgery -Consult oncology -PT/OT evaluation once okayed by orthopedic surgery -We will avoid anticoagulation at this point in time secondary to paraspinal hematoma on computed tomography scan. If cleared from Shock will start Lovenox in a.m. Metastatic breast cancer with metastases to spine, small and large bowel, and liver -Hold Xeloda in light of possible need for surgery -Oncology recommendations History of SIADH. -Stat basic metabolic profile -Repeat basic metabolic profile in a.m. Right sided hydraonephrosis - seen on outpatient CT - Check renal US if patient is able to tolerate Constipation -Resume home MiraLAX Left subclavian stenosis -Status post stenting -Has been off Plavix since prior surgeries in December. If no surgical intervention planned likely should consider restarting Plavix. Chronic anemia likely related to malignancy and chemotherapy -Stat CBC -No additional workup at this point in time last hospital stay iron studies were within normal. History subclinical hypothyroidism -Outpatient follow-up of TSH and free T4. The patient is placed in observation with an anticipated greater than 2 midnight stay for evaluation of intractable back pain due to acute compression fracture in the setting of Stage IV Breast Cancer with chronic opiate dependency. Surrogate decision-maker: Brother- Jack CODE STATUS: DNR DVT prophylaxis: SCDs Discussed with: Patient, ED physician Anticipated discharge date: 1-[address]: home with home health possible palliative care for symptom control if SHANK CUTTER available in [place]. A total of 75 minutes was spent on the care of this complex patient more than 50% of the time was spent in counseling and care coordination.
[2019-04-06 19:39] LABS: Anisocytosis Slight; HCT 32.5 % (34.0-46.0); HGB 10.7 gm/dL (11.4-16.0); MCH 30.6 pg (25.0-35.0); MCHC 32.9 g/dL (31.0-37.0); MCV 92.9 fL (80.0-100.0); Mean Platelet Volume 6.1; Platelet Count 238 k/uL (150-450); RDW 16.6 % (11.5-15.5); WBC 5.2 k/uL (3.8-10.6)
[2019-04-06 19:45] LABS: Prothrombin Time 10.5 sec (9.0-12.0)
[2019-04-06 19:48] LABS: ALT 27 U/L (9-52); AST 18 U/L (14-36); African American GFR (CKD) >90 (>60 ml/min/1.73 sqM); Albumin 3.3 g/dL (3.5-5.0); Alkaline Phosphatase 64 U/L (38-126); Anion Gap 6 mmol/L; Blood Urea Nitrogen 9 mg/dL (7-17); Calcium 8.9 mg/dL (8.4-10.2); Carbon Dioxide 28 mmol/L (22-30); Chloride 97 mmol/L (98-107); Glucose 96 mg/dL (74-99); Non-African American GFR(CKD) >90 (>60 ml/min/1.73 sqM); Potassium 3.8 mmol/L (3.5-5.1); Sodium 131 mmol/L (137-145); Total Bilirubin 0.7 mg/dL (0.2-1.3)
[2019-04-06] MEDS: ZOLPIDEM 5 MG TAB PO SCH (20:36)
[2019-04-06] MEDS: POLYETHYLENE GLYCOL 3350 17 GM POWD.PACK PO SCH (20:36)
[2019-04-06] MEDS: HYDROmorphone 1 MG/ML 1 ML SYRINGE IVP PRN (20:37)
[2019-04-06] MEDS: ONDANSETRON 4 MG/2 ML VIAL IVP PRN (21:01)
[2019-04-07 00:35] VITALS: BMI 18.8
[2019-04-07] MEDS: HYDROmorphone 1 MG/ML 1 ML SYRINGE IVP PRN ×4 (00:53→08:17)
[2019-04-07] MEDS: ALPRAZolam 0.5 MG TAB PO PRN ×2 (03:09→20:48)
[2019-04-07] MEDS: POLYETHYLENE GLYCOL 3350 17 GM POWD.PACK PO SCH ×2 (08:03→20:47)
[2019-04-07 08:51] LABS: Anisocytosis Slight; HCT 34.3 % (34.0-46.0); HGB 11.1 gm/dL (11.4-16.0); MCH 30.1 pg (25.0-35.0); MCHC 32.3 g/dL (31.0-37.0); MCV 93.2 fL (80.0-100.0); Platelet Count 252 k/uL (150-450); RBC 3.68 m/uL (3.80-5.40); RDW 16.5 % (11.5-15.5); WBC 4.8 k/uL (3.8-10.6)
--- NOTE | 2019-04-07 08:59 | P.CNOR ---
History of Present Illness - [facility] Consult date: 04/07/19 Consult reason: back pain History of present illness: Patient is a very pleasant 68-year-old female with a history of metastatic breast cancer. The patient says that she had recent acute onset of pain at her back at the end of last week. She denies any injury denies any trauma. She says the pain is at her middle of her back. It does not radiate into her arms or lower extremities. She denies any cough fevers or chills. She has history of metastasis to her liver and GI system. She recently had a colectomy at the end of December for this. She says that she recovered well and was able to start to return to activity without her walker. She says however she has had increased symptoms over the past week which has significant we altered her ability to get around. Review of Systems Denies any fevers or chills. She has pain is at the middle of her back and radiates toward the left side. She denies any nausea or vomiting. She has been able to void. She denies any weakness in her lower extremities denies any pain numbness tingling in her lower extremities. Past Medical History Past Medical History: Cancer Additional Past Medical History / Comment(s): Metastatic lt breast cancer with metastases the large bowel and liver and spine. SIADH, Hydronephrosis, subclinical hypothyrodisim, protein calorie malnutrition,carpel tunnel right hand with sx. bilateral cataracts with sx History of Any Multi-Drug Resistant Organisms: None Reported Past Surgical History: Appendectomy, Cholecystectomy, Hysterectomy Additional Past Surgical History / Comment(s): Lumpectomy involving the left breast, previous history of abdominal surgery for small bowel obstruction x2, right uretheral stent with removal, left subclavian stent secondary to stenosis Past Anesthesia/Blood Transfusion Reactions: No Reported Reaction Past Psychological History: Anxiety Smoking Status: Never smoker Past Alcohol Use History: None Reported Past Drug Use History: None Reported - Past Family History Father Family Medical History: Cancer Additional Family Medical History / Comment(s): lung cancer Mother Family Medical History: Cancer Additional Family Medical History / Comment(s): lung cancer Medications and Allergies Home Medications Medication Instructions Recorded Confirmed Type ALPRAZolam [Xanax] 0.5 mg PO TID PRN 01/02/19 04/06/19 History Zolpidem Tartrate [Ambien Cr] 12.5 mg PO HS #3 tab 01/27/19 04/06/19 Rx fentaNYL 12MCG/HR PATCH [Duragesic 1 patch TRANSDERM Q72H #1 patch 01/27/19 04/06/19 Rx 12MCG/HR] fentaNYL 25MCG/HR PATCH [Duragesic 1 patch TRANSDERM Q72H #1 patch 01/27/19 04/06/19 Rx 25MCG/HR] Capecitabine [Xeloda] 500 - 1,000 mg PO DIRECTED 04/06/19 04/06/19 History Polyethylene Glycol 3350 [Miralax] 17 gm PO BID 04/06/19 04/06/19 History oxyCODONE HCL [Oxaydo] 5 - 10 mg PO Q6H PRN 04/06/19 04/06/19 History Allergies Allergy/AdvReac Type Severity Reaction Status Date / Time No Known Allergies Allergy Verified 04/06/19 16:20 Physical Examination Osteopathic Statement: *. No significant issues noted on an osteopathic structural exam other than those noted in the History and Physical/Consult. - L Spine: dermatomal strength & reflexes bilateral Strength: hip flexion: 5/5 (The patient has tenderness at her mid thoracic spine. There is no open wounds lacerations or abrasions. She is nontender over her lumbar spine. Lower extremities have 5 out of 5 strength with hip flexion the extension dorsal flexion plantar flexion and EHL. Her thighs and calves soft nontender. Her upper extremity 7 good active and passive range of motion throughout with no pain throughout. Her neck is nontender to palpation range of motion. Abdomen soft nontender. She has good excursion deep inspection expiration) Results - Labs Labs: Abnormal Lab Results - Last 24 Hours (Table) 04/06/19 04/06/19 04/07/19 Range/Units 18:59 18:59 08:03 RBC 3.50 L 3.68 L (3.80-5.40) m/uL Hgb 10.7 L 11.1 L (11.4-16.0) gm/dL Hct 32.5 L (34.0-46.0) % RDW 16.6 H 16.5 H (11.5-15.5) % Sodium 131 L (137-145) mmol/L Chloride 97 L (98-107) mmol/L Creatinine 0.46 L (0.52-1.04) mg/dL Total Protein 6.0 L (6.3-8.2) g/dL Albumin 3.3 L (3.5-5.0) g/dL H & H 04/06/19 04/07/19 Range/Units 18:59 08:03 Hgb 10.7 L 11.1 L (11.4-16.0) gm/dL Hct 32.5 L 34.3 (34.0-46.0) % Coagulation 04/06/19 Range/Units 18:59 INR 1.0 (<1.2) Result Diagrams: 04/07/19 08:03 04/06/19 18:59 - Diagnostic results CT Scan - lumbar: report reviewed, image reviewed (I was able to evaluate the computed tomography scan through the thoracic spine in regards to the fracture. There is evidence of a chronic compression deformity hence bony sclerosis at T5 with about 70% height loss. There is a compression deformity at T7 which appears to be new with approximately 50% height loss. There is some change within L1 which appears to be hemangioma. I did not see any obvious cortical or bony distraction within the vertebral bodies. The neurologic structures. A be intact without significant stenosis.) Assessment and Plan Assessment: Thoracic back pain New T7 compression fracture without neurologic compromise Chronic T5 compression fracture without neurologic compromise History of metastatic breast cancer Recent history of colectomy Plan: Thoracic back pain New T7 compression fracture without neurologic compromise Chronic T5 compression fracture without neurologic compromise History of metastatic breast cancer Recent history of colectomy The patient has new T7 compression fracture of uncertain etiology. This may be pathologic given her history but I do not see any obvious bony destruction. She does have osteoporosis and it is pathologic due to her osteoporosis. I would like to see if she has some benefit with using a brace. We will order a spinomed TLSO brace for her to use whenever she is out of bed. This may give her some support to help alleviate some of the symptoms associated with the fracture. We could consider the possibility of kyphoplasty of T7 as well. For now she would like to avoid surgical intervention if she is able and I think that is reasonable. If her symptoms are not improving we could consider T7 vertebral kyphoplasty which would also allow us to get a biopsy of the bone. This may help with diagnosis and pain control as well as treatment for her. I explained and she understands. For now we will order a brace and try to help her mobilize to see if she helps alleviate her pain and allows for appropriate healing of that fracture. We will have therapy see her to try to help with her mobilization as well. If her pain is controlled it is okay for her to follow up with our office on an outpatient basis in the next 2 weeks for recheck evaluation and repeat x-rays. If she is not having significant benefit we will continue to follow her here and consider other treatment if necessary.
[2019-04-07 09:03] LABS: ALT 28 U/L (9-52); AST 19 U/L (14-36); African American GFR (CKD) >90 (>60 ml/min/1.73 sqM); Albumin 3.3 g/dL (3.5-5.0); Alkaline Phosphatase 59 U/L (38-126); Anion Gap 11 mmol/L; Blood Urea Nitrogen 11 mg/dL (7-17); Calcium 9.2 mg/dL (8.4-10.2); Carbon Dioxide 27 mmol/L (22-30); Chloride 97 mmol/L (98-107); Glucose 84 mg/dL (74-99); Non-African American GFR(CKD) >90 (>60 ml/min/1.73 sqM); Potassium 4.1 mmol/L (3.5-5.1); Sodium 135 mmol/L (137-145); Total Bilirubin 0.9 mg/dL (0.2-1.3)
--- NOTE | 2019-04-07 11:12 | US ---
EXAMINATION TYPE: US kidneys/renal and bladder DATE OF EXAM: 04/07/2019 COMPARISON: NONE CLINICAL HISTORY: hydronephrosis. EXAM MEASUREMENTS: Right Kidney: 11.8 x 4.4 x 5.5 cm Left Kidney: 10.6 x 6.3 x 4.6 cm Right Kidney: 2 shadowing stones seen measuring 1.1 x 0.9 x 0.8cm and 0.8 x 0.5 x 0.6cm mild there is mild hydronephrosis present. Left Kidney: /2nd attempt, cyst measuring 1.2 x 1.2 x 1.3cm, scanned posterior due to overlying bowel gas, limited views, cystic focus at the lower pole of the left kidney likely a parapelvic cyst Bladder: not seen Cortical medullary differentiation is maintained. IMPRESSION: Right-sided nephrolithiasis, hydronephrosis.
[2019-04-07] MEDS: HYDROmorphone 2 MG/ML 1 ML SYRINGE IVP PRN ×4 (11:29→20:48)
[2019-04-07] MEDS: ONDANSETRON 4 MG/2 ML VIAL IVP PRN (17:45)
[2019-04-07] MEDS ORDERED: BISACODYL 10 MG SUPP RECTAL PRN (19:20)
--- NOTE | 2019-04-07 19:22 | P.PN ---
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 She had initially seen her family physician on Thursday and started oxycodone in addition to her fentanyl patch on Thursday. However her pain was so severe on Thursday that she presented to the emergency department. She underwent x-ray evaluation there which showed abnormalities at T4 and T6 with suspected fractures. She was therefore transferred to our facility for spine evaluation. On arrival here she underwent a CT of the thoracic spine which showed a new compression fracture involving the T7 vertebral settlement with minimal bony retropulsion and surrounding paraspinal hematoma but no evidence of cord compression and a stable compression fracture of T5 with bony sclerosis. In the ER she was treated with pain medications and arrangements were made for admission. Her fentanyl patch was increased and she was continued on IV Dilaudid. Overnight on 04/06 her to let her requirements increased. Orthopedic spine was consulted who recommended a TLSO brace and possible surgical intervention if no improvement in her pain. Patient seen and examined at bedside. She states that her pain overnight was severe. Her increase in one of Dilaudid every 2 still did not ish her pain. This morning we increased her to 1.5 mg of Dilaudid every 2 hours which seemed to help. Eating slightly better today than she has been over the last 3-4 days. Still no bowel movement but not feeling distended. No difficulty with urination. No nausea. Objective - Vital Signs Vital signs: Vital Signs Temp 97.8 F 04/07/19 15:00 Pulse 68 04/07/19 15:00 Resp 16 04/07/19 15:16 BP 129/68 04/07/19 15:00 Pulse Ox 95 04/07/19 15:00 Intake & Output 04/07/19 04/07/19 04/08/19 06:59 18:59 06:59 Intake Total 100 120 Balance 100 120 Weight 48.081 kg Intake: Oral 100 120 Other: Voiding Method Toilet # Voids 0 1 - Exam General: Appears older than stated age, cachectic, moderate distress due to pain non toxic, no distress, Derm: warm, dry Head: atraumatic, normocephalic, symmetric Eyes: EOMI, no lid lag, anicteric sclera Mouth: no lip lesion, mucus membranes moist Cardiovascular: S1S2 reg, no murmur, positive posterior tibial pulse bilateral, Lungs: decreased breath sounds bilateral, no rhonchi, no rales , no accessory muscle use Abdominal: soft, nontender to palpation, no guarding, no appreciable organomegaly Ext: no gross muscle atrophy, no edema, no contractures Neuro: CN II-XI grossly intact, no focal neuro deficits Psych: Alert, oriented, appropriate affect - Labs CBC & Chem 7: 04/07/19 08:03 04/07/19 08:03 Labs: Abnormal Lab Results - Last 24 Hours (Table) 04/06/19 04/06/19 04/07/19 Range/Units 18:59 18:59 08:03 RBC 3.50 L 3.68 L (3.80-5.40) m/uL Hgb 10.7 L 11.1 L (11.4-16.0) gm/dL Hct 32.5 L (34.0-46.0) % RDW 16.6 H 16.5 H (11.5-15.5) % Sodium 131 L (137-145) mmol/L Chloride 97 L (98-107) mmol/L Creatinine 0.46 L (0.52-1.04) mg/dL Total Protein 6.0 L (6.3-8.2) g/dL Albumin 3.3 L (3.5-5.0) g/dL 04/07/19 Range/Units 08:03 RBC (3.80-5.40) m/uL Hgb (11.4-16.0) gm/dL Hct (34.0-46.0) % RDW (11.5-15.5) % Sodium 135 L (137-145) mmol/L Chloride 97 L (98-107) mmol/L Creatinine 0.51 L (0.52-1.04) mg/dL Total Protein 6.0 L (6.3-8.2) g/dL Albumin 3.3 L (3.5-5.0) g/dL Assessment and Plan Assessment: Intractable back pain secondary to acute T7 fracture with chronic T5 fracture with retropulsion undetermined etiology -Dilaudid increased, add oxycodone to see if can stretch dilaudid dosing, fentanyl patch increased from a total of 37 g to 50 g 04/06. -orthopedic spine surgery recs appreciated d/w Dr. Lal -Oncology recs appreciated d/w Dr. Reeves -PT/OT evaluation once brace available - if pain not improved in AM consult pain management Metastatic breast cancer with metastases to spine, small and large bowel, and liver -Xeloda -Oncology recommendations Constipation -Resume home MiraLAX - add ducolax History of SIADH. - Na better than baseline - repeat labs as outpatient unless clinical change Right sided hydronephrosis, improved to mild - f/u urology on d/c Left subclavian stenosis -Status post stenting per patient -Correction has been off baby ASA not plavix since prior surgeries in December. If no surgical intervention planned likely should consider restarting ASA Chronic anemia likely related to malignancy and chemotherapy at baseline -outpatient follow-up History subclinical hypothyroidism -Outpatient follow-up of TSH and free T4. DVT prophylaxis: SCDs Discussed with: Patient, ED physician Anticipated discharge date: 2-[address]: home with home health possible palliative care for symptom control if COMPACTING MACHINE OPERATOR/TENDER available in [place]. A total of 35 minutes was spent on the care of this complex patient more than 50% of the time was spent in counseling and care coordination.
[2019-04-07] MEDS: ZOLPIDEM 5 MG TAB PO SCH (20:48)
--- NOTE | 2019-04-08 00:01 | P.CONS ---
History of Present Illness - Reason for Consult Consult date: 04/07/19 metastatic breast cancer, intractable back pain - History of Present Illness Ms Stewart is a 68 yr old white female, initially seen in consult at [facility] on 01/08/19. The patient has a complicated past oncologic history. She was diagnosed with invasive lobular carcinoma of the left breast in 2005 and was treated with lumpectomy, radiation, chemotherapy and then anastrozole for 5 years. She was ER/HI positive and HER-2/marcial negative. The patient then developed recurrence in the left breast in 08/15, with metastatic disease including chest wall nodules and a mass compressing on the brachial plexus. Biopsies confirmed similar pathology as before. The patient has had multiple therapies since then, under the care of Dr. Clarke, as well as the [facility]. Exact details were not available initially as we did not have complete records. From the information available it appeared that she had had Ibrance, Abraxane, possibly Faslodex, and Xeloda. She had been on Xeloda most recently. The patient states that she'd had admissions for bowel obstruction off and on since early 2018. She had an admission in late 08/17-early 09/17 and the [facility] with omental biopsy confirming breast primary, ER positive, HI now negative, and HER-2/marcial negative. She was admitted at [facility] in 01/17 with bowel obstruction, which did not resolve with conservative measures. She therefore underwent surgery on 01/12/19 with at least 2 areas of obstruction of the small bowel due to omental metastasis. She had resection and end-to-end anastomosis with pathology confirming breast primary, ER positive, HI negative and HER-2/marcial negative. The patient was discharged to [facility] and was transferred home after 2 weeks. She was seen for her first office visit on 02/24/19. CT of the abdomen and pelvis in patient did not show definite measurable disease, though surgeon's inspection revealed evidence of peritoneal deposits. Chest x-ray had shown bilateral small pleural effusions and left lower lobe infiltrate. Tumor markers on 01/08/19 showed normal CA 153, and 2729 elevated at 71.7. the patient's consult from the [facility] was subsequently obtained. the information was confirmed. Since recurrence, the patient has been treated with anastrozole, Faslodex, Ibrance, Abraxane, and Xeloda. Repeat CT scans and bone scan did not show any measurable diaease. An area of uptake c/w a compresssion fracture was seen in the T spine at T5. Rt sided hydronephrosis was noted on bone scan , but not mentioned on CT. Based on the information available, it was not clear that the patient had progressed on Xeloda. She had been having abdominal symptoms prior to even starting Xeloda. She was therefore started back on Xeloda 1 week on and one-week off. She has finished one cycle and just started cycle 2. The patient's bone scan had shown a compression fracture at T5. However she was fairly asymptomatic from same. She states that she developed new onset of severe back pain in the mid back, radiating around to the front fairly acutely. She did not recall any specific trauma on exertion. Symptoms recurred and progressed becoming intractable within about a day. She therefore came into the emergency room. Repeat CAT scan showed new compression fracture at T7. She was therefore admitted for further management. She denied any evidence of note extremity weakness, numbness, or loss of control of stool or urine. She has noted some increased swelling of the left upper extremity. Review of Systems Constitutional: Reports fatigue, Reports weakness, Reports weight loss (Stabilized since Surgery) Eyes: denies blurred vision, denies pain Ears: deny: decreased hearing, ear discharge, earache Ears, nose, mouth and throat: Denies headache, Denies sore throat Cardiovascular: Reports decreased exercise tolerance Respiratory: Denies cough Gastrointestinal: Reports as per HPI Genitourinary: Denies dysuria, Denies hematuria Menstruation: Reports postmenopausal Musculoskeletal: Reports as per HPI (Left upper extremity swelling. Midback pain) Integumentary: Denies pruritus, Denies rash Neurological: Reports weakness, Denies numbness Psychiatric: Denies anxiety, Denies depression Endocrine: Reports fatigue, Reports weight change Hematologic/Lymphatic: Reports as per HPI Past Medical History Past Medical History: Cancer Additional Past Medical History / Comment(s): Metastatic lt breast cancer with metastases the large bowel and liver and spine. SIADH, Hydronephrosis, subclinical hypothyrodisim, protein calorie malnutrition,carpel tunnel right hand with sx. bilateral cataracts with sx History of Any Multi-Drug Resistant Organisms: None Reported Past Surgical History: Appendectomy, Cholecystectomy, Hysterectomy Additional Past Surgical History / Comment(s): Lumpectomy involving the left breast, previous history of abdominal surgery for small bowel obstruction x2, right uretheral stent with removal, left subclavian stent secondary to stenosis Past Anesthesia/Blood Transfusion Reactions: No Reported Reaction Past Psychological History: Anxiety Smoking Status: Never smoker Past Alcohol Use History: None Reported Past Drug Use History: None Reported - Past Family History Father Family Medical History: Cancer Additional Family Medical History / Comment(s): lung cancer Mother Family Medical History: Cancer Additional Family Medical History / Comment(s): lung cancer Medications and Allergies Home Medications Medication Instructions Recorded Confirmed Type ALPRAZolam [Xanax] 0.5 mg PO TID PRN 01/02/19 04/06/19 History Zolpidem Tartrate [Ambien Cr] 12.5 mg PO HS #3 tab 01/27/19 04/06/19 Rx fentaNYL 12MCG/HR PATCH [Duragesic 1 patch TRANSDERM Q72H #1 patch 01/27/19 04/06/19 Rx 12MCG/HR] fentaNYL 25MCG/HR PATCH [Duragesic 1 patch TRANSDERM Q72H #1 patch 01/27/19 04/06/19 Rx 25MCG/HR] Capecitabine [Xeloda] 500 - 1,000 mg PO DIRECTED 04/06/19 04/06/19 History Polyethylene Glycol 3350 [Miralax] 17 gm PO BID 04/06/19 04/06/19 History oxyCODONE HCL [Oxaydo] 5 - 10 mg PO Q6H PRN 04/06/19 04/06/19 History Allergies Allergy/AdvReac Type Severity Reaction Status Date / Time No Known Allergies Allergy Verified 04/06/19 16:20 Physical Exam Vitals: Vital Signs Temp Pulse Resp BP Pulse Ox 04/07/19 15:16 16 04/07/19 15:00 97.8 F 68 16 129/68 95 04/07/19 08:00 18 04/07/19 06:00 97.8 F 76 18 137/83 94 L 04/06/19 23:00 97.7 F 66 18 119/75 95 Intake and Output 04/07/19 04/07/19 04/07/19 06:59 14:59 22:59 Intake Total 100 120 Balance 100 120 Intake: Oral 100 120 Other: Voiding Method Toilet Toilet # Voids 0 1 Weight 48.081 kg - Constitutional General appearance: no acute distress - EENT Eyes: EOMI, PERRLA ENT: hearing grossly normal, normal oropharynx - Neck Neck: no lymphadenopathy Thyroid: bilateral: normal size - Respiratory Respiratory: bilateral: CTA - Cardiovascular Rhythm: regular Heart sounds: normal: S1, S2 - Gastrointestinal General gastrointestinal: normal bowel sounds, soft - Integumentary Integumentary: normal - Neurologic Neurologic: CNII-XII intact - Musculoskeletal Left upper extremity swelling extending down to the hand Musculoskeletal: strength equal bilaterally - Psychiatric Psychiatric: A&O x's 3, appropriate affect Results CBC & Chem 7: 04/07/19 08:03 04/07/19 08:03 Labs: Abnormal Lab Results - Last 24 Hours (Table) 04/07/19 04/07/19 Range/Units 08:03 08:03 RBC 3.68 L (3.80-5.40) m/uL Hgb 11.1 L (11.4-16.0) gm/dL RDW 16.5 H (11.5-15.5) % Sodium 135 L (137-145) mmol/L Chloride 97 L (98-107) mmol/L Creatinine 0.51 L (0.52-1.04) mg/dL Total Protein 6.0 L (6.3-8.2) g/dL Albumin 3.3 L (3.5-5.0) g/dL Comments: Thoracic spine CT report reviewed Doppler of the upper extremity report requested US - abdomen: report reviewed Assessment and Plan (1) Compression fracture of T7 vertebra Narrative/Plan: Based on the imaging appearance it is not definitive this is due to malignancy or a benign compression fracture. The patient did have compression fracture noted at T5 on prior bone scan but was relatively asymptomatic from the same. The patient has been evaluated by orthopedic surgery. Case was discussed in detail with the admitting service. At this time the plan is for intervention with kyphoplasty and biopsy if pain is not controlled with medical management I am quite in agreement with this plan. From the oncology standpoint, even if the fractures are pathologic, it would not change her systemic therapy as she has just started back on that after a long hiatus. However if her fractures were pathology, and we will add Xgeva to her treatment No evidence of any neurologic deficit. Monitor for the same Current Visit: Yes Status: Acute Code(s): S22.060A - WEDGE COMPRESSION FRACTURE OF T7-T8 VERTEBRA, INIT SNOMED Code(s): 526309766 (2) Intractable pain Narrative/Plan: Due to compression fractures. Plan as noted above Current Visit: Yes Status: Acute Code(s): R52 - PAIN, UNSPECIFIED SNOMED Code(s): 12483439 (3) Metastatic breast cancer Narrative/Plan: The patient has decided to transfer her care here, as she has moved to this area. It is fairly challenging to obtain complete information regarding her prior history. However this was able to be obtained and reviewed. This is noted in the HPI. Again, it is not clear if the patient had ever progressed on Xeloda, as she had been having some to the bowel obstruction even prior to starting it. In addition she had been on it for fairly short time before having to take a prolonged treatment break due to her GI issues. She has just been started back, and lites 2, on a fairly low dose. Therefore assuming that her acute complain can be adequately treated, the plan would be to continue with her current systemic therapy with ongoing evaluation for benefit. Tumor markers will be repeated during this visit. We'll also plan to repeat imaging with a couple of months, or sooner if there are any new symptoms. Plan discussed in detail with the admitting service. The patient can take her own Xeloda from home Current Visit: No Status: Chronic Priority: High Code(s): C50.919 - MALIGNANT NEOPLASM OF UNSP SITE OF UNSPECIFIED FEMALE BREAST SNOMED Code(s): 735351238 (4) Left upper extremity swelling Narrative/Plan: The patient had a prior recurrence in the left upper chest area causing compressive symptoms. She had a stent placement 4 years ago. However she had resection of the recurrent malignancy and does not have evidence of recurrence since. Venous thromboembolism remains a concern. Dopplers were previously performed and report has been requested. Current Visit: Yes Status: Acute Code(s): M79.89 - OTHER SPECIFIED SOFT TISSUE DISORDERS SNOMED Code(s): 586158140
[2019-04-08] MEDS: HYDROmorphone 2 MG/ML 1 ML SYRINGE IVP PRN ×2 (04:29→11:11)
--- NOTE | 2019-04-08 08:15 | P.PN ---
Progress Note - Text Progress Note Date: 04/08/19 Patient is seen and examined today at bedside. She says that she feels a little bit better at her back. She did receive her TLSO brace yesterday evening and lower feels cumbersome she can sense that it gives her some support when she is up. She has not been out of bed very much at all other than using the bathroom. Her extremity exam her neurologic exam is unchanged. She has sustained dorsal flexion plantar flexion and EHL her bilateral lower extremity is. Her upper extremity full active and passive range of motion. Assessment and plan New T7 compression fracture without neurologic compromise Thoracic back pain History of metastatic breast CA The patient's brace appears to be fitting appropriately for her and she can try to continue using it when she is out of bed. Thus far her symptoms of pain may have slightly improved. We'll see how she does that she continues to mobilize. If she continues to do well we can manage conservatively however she is having increased difficulty that we would have to consider possibility of kyphoplasty with biopsy. We will continue to follow her along with you to monitor her pain and consider intervention if necessary or if the function of biopsy would significantly change her treatment options. Oncology has been following patient and I appreciate their recommendations.
[2019-04-08] MEDS: POLYETHYLENE GLYCOL 3350 17 GM POWD.PACK PO SCH ×2 (08:24→20:45)
[2019-04-08] MEDS ORDERED: CAPECITABINE PO SCH ×2 (09:00→21:00)
--- NOTE | 2019-04-08 16:39 | P.PN ---
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 She had initially seen her family physician on Thursday and started oxycodone in addition to her fentanyl patch on Thursday. However her pain was so severe on Thursday that she presented to the emergency department. She underwent x-ray evaluation there which showed abnormalities at T4 and T6 with suspected fractures. She was therefore transferred to our facility for spine evaluation. On arrival here she underwent a CT of the thoracic spine which showed a new compression fracture involving the T7 vertebral settlement with minimal bony retropulsion and surrounding paraspinal hematoma but no evidence of cord compression and a stable compression fracture of T5 with bony sclerosis. In the ER she was treated with pain medications and arrangements were made for admission. Her fentanyl patch was increased and she was continued on IV Dilaudid. Overnight on 04/06 her to let her requirements increased. Orthopedic spine was consulted who recommended a TLSO brace and possible surgical intervention if no improvement in her pain. Started on oral oxycodone in addition to IV dilaudid in order to see if can transition to oral pain medications. Patient seen and examined at bedside. Pain is better today, still has not tried oral medications, no nausea, appetite is increased slightly. Still no bowel movements. Patient needs to increase ambulation and wear TLSO brace. Objective - Vital Signs Vital signs: Vital Signs Temp 97.8 F 04/08/19 14:09 Pulse 68 04/08/19 14:09 Resp 16 04/08/19 14:44 BP 102/69 04/08/19 14:09 Pulse Ox 97 04/08/19 14:09 Intake & Output 04/07/19 04/08/19 04/08/19 18:59 06:59 18:59 Intake Total 120 500 Balance 120 500 Weight 48.081 kg Intake: Oral 120 500 Other: Voiding Method Toilet Toilet # Voids 1 1 2 - Exam General: Appears older than stated age, cachectic, no distress, non toxic, no distress, Derm: warm, dry Head: atraumatic, normocephalic, symmetric Eyes: EOMI, no lid lag, anicteric sclera Mouth: no lip lesion, mucus membranes moist Cardiovascular: S1S2 reg, no murmur, positive posterior tibial pulse bilateral, Lungs: decreased breath sounds bilateral, no rhonchi, no rales , no accessory muscle use Abdominal: soft, nontender to palpation, no guarding, no appreciable organomegaly Ext: no gross muscle atrophy, no edema, no contractures Neuro: CN II-XI grossly intact, no focal neuro deficits Psych: Alert, oriented, appropriate affect - Labs CBC & Chem 7: 04/07/19 08:03 04/07/19 08:03 Assessment and Plan Assessment: Intractable back pain secondary to acute T7 fracture with chronic T5 fracture with retropulsion undetermined etiology -Dilaudid, oxycodone (encouraged patient to try today) fentanyl patch increased from a total of 37 g to 50 g 04/06. -orthopedic spine surgery recs appreciated conservative treatment with bracing and pain medications for now if no improvement then could consider biopsy and kyphoplasty -Oncology recs appreciated -increase ambulation Metastatic breast cancer with metastases to spine, small and large bowel, and liver -Xeloda -Oncology recommendations Constipation - MiraLAX - ducolax History of SIADH. - Na better than baseline - repeat labs as outpatient unless clinical change Right sided hydronephrosis, improved to mild - f/u urology on d/c Left subclavian stenosis -Status post stenting per patient -Correction has been off baby ASA since prior surgeries in December. If no surgical intervention planned likely should consider restarting ASA Chronic anemia likely related to malignancy and chemotherapy at baseline -outpatient follow-up History subclinical hypothyroidism -Outpatient follow-up of TSH and free T4. DVT prophylaxis: SCDs Discussed with: Patient Anticipated discharge date: 1-[address]: home health and palliative care A total of 35 minutes was spent on the care of this complex patient more than 50% of the time was spent in counseling and care coordination.
[2019-04-08] MEDS: HYDROmorphone 1 MG/ML 1 ML SYRINGE IVP PRN ×3 (16:47→23:37)
[2019-04-08] MEDS: ZOLPIDEM 5 MG TAB PO SCH (21:54)
[2019-04-08] MEDS: ALPRAZolam 0.5 MG TAB PO PRN (22:00)
[2019-04-09] MEDS: HYDROmorphone 1 MG/ML 1 ML SYRINGE IVP PRN ×5 (03:33→21:18)
[2019-04-09] MEDS: POLYETHYLENE GLYCOL 3350 17 GM POWD.PACK PO SCH ×2 (07:44→21:20)
--- NOTE | 2019-04-09 08:55 | P.PN ---
Subjective Progress Note Date: 04/09/19 This is a 68-year-old female who is admitted for T7 compression fracture and thoracic back pain. Patient has a history of metastatic breast cancer. Patient is seen and evaluated at bedside today. Patient states that her pain has been better controlled while she is in bed. Patient states that she has not been out of bed with her brace much. Patient denies any new complaints today. Objective - Vital Signs Vital signs: Vital Signs Temp 97.9 F 04/09/19 04:30 Pulse 69 04/09/19 04:30 Resp 16 04/09/19 04:30 BP 90/54 04/09/19 04:30 Pulse Ox 94 L 04/09/19 04:30 Intake & Output 04/08/19 04/09/19 04/09/19 18:59 06:59 18:59 Other: Voiding Method Toilet Toilet # Voids 1 1 # Bowel Movements 1 - Exam On exam patient is sitting up comfortably in bed in no acute distress. Patient has good range of motion of bilateral lower extremities. Patient has full range of motion of bilateral feet and ankles. Sensation intact. Calves are soft and nontender to palpation bilaterally. Neurovascular status and circulatory status are intact. - Labs CBC & Chem 7: 04/07/19 08:03 04/07/19 08:03 Assessment and Plan Assessment: History of metastatic breast cancer (1) Compression fracture of T7 vertebra Current Visit: Yes Status: Acute Code(s): S22.060A - WEDGE COMPRESSION FRACTURE OF T7-T8 VERTEBRA, INIT SNOMED Code(s): 664187202 (2) Intractable pain Current Visit: Yes Status: Acute Code(s): R52 - PAIN, UNSPECIFIED SNOMED Code(s): 63027897 Plan: 1. Recommend use of TLSO brace when out of bed. 2. Continue pain control. 3. Plan to continue with conservative treatment if the patient's pain and mob ilization continue to improve. Possible kyphoplasty with biopsy if the patient continues to have difficulty with patient management and mobilization.
--- NOTE | 2019-04-09 10:30 | P.PN ---
Subjective Progress Note Date: 04/09/19 The patient reports reasonable pain control while in bed. However she does have increasing pain when she tries to bear weight. She has been requiring Dilaudid regularly inpatient. At this time she is being attempted to be transitioned over to an outpatient in regimen with increasing fentanyl dose, and oxycodone when necessary. However she states that this regimen does not appear to be effective so far. She did have a bowel movement with a suppository. No nausea or vomiting. Objective - Vital Signs Vital signs: Vital Signs Temp 97.9 F 04/09/19 04:30 Pulse 69 04/09/19 04:30 Resp 16 04/09/19 04:30 BP 90/54 04/09/19 04:30 Pulse Ox 94 L 04/09/19 04:30 Intake & Output 04/08/19 04/09/19 04/09/19 18:59 06:59 18:59 Intake Total 300 Balance 300 Intake: Oral 300 Other: Voiding Method Toilet Toilet # Voids 1 1 # Bowel Movements 1 - Constitutional General appearance: Present: no acute distress - EENT Eyes: Present: EOMI ENT: Present: hearing grossly normal, normal oropharynx - Respiratory Respiratory: bilateral: CTA - Cardiovascular Rhythm: regular Heart sounds: normal: S1, S2 - Gastrointestinal General gastrointestinal: Present: normal bowel sounds, soft - Integumentary Integumentary: Present: normal - Neurologic Neurologic: Present: CNII-XII intact - Musculoskeletal Musculoskeletal Comment(s): Left upper extremity edema Musculoskeletal: Present: generalized weakness, strength equal bilaterally - Psychiatric Psychiatric: Present: A&O x's 3, appropriate affect - Labs CBC & Chem 7: 04/07/19 08:03 04/07/19 08:03 Assessment and Plan (1) Compression fracture of T7 vertebra Narrative/Plan: At this time this is being attempted to be managed conservatively. A brace has been prescribed, but the patient apparently has not been out of bed with a brace much. Orthopedic spine service continues to follow. Current Visit: Yes Status: Acute Code(s): S22.060A - WEDGE COMPRESSION FRACTURE OF T7-T8 VERTEBRA, INIT SNOMED Code(s): 841223204 (2) Intractable pain Narrative/Plan: Case discussed with the admitting service. Pain control continues to be an issue. While she is comfortable while in bed, she still has significant pain on trying to ambulate. Even at rest, she continues to require Dilaudid IV frequently. She is being attempted to be transitioned to an outpatient regimen. Fentanyl dose was increased to 50 MCG. She was started on by mouth oxycodone for break through. However she states that at this time this does not appear to be effective. If the patient continues to require frequent IV Dilaudid, despite the above changes in her regimen, and it would be reasonable to consider a more aggressive approach such as kyphoplasty. Current Visit: Yes Status: Acute Code(s): R52 - PAIN, UNSPECIFIED SNOMED Code(s): 69997783 (3) Metastatic breast cancer Narrative/Plan: The patient is starting her scheduled week off the Xeloda today. She missed 2 doses while in the hospital. She was advised to just skip those doses, and stay with the current schedule. She was therefore started back on Xeloda on 04/16/19 . As the patient was seen in the hospital this admission, follow-up appointment early next week will be canceled. She'll be rescheduled for the first part of 05/19 for follow-up. If her pain persists, as noted, it would be reasonable to consider kyphoplasty. The patient can have a biopsy at that time also. If the biopsy is positive, this would not change our recommendations for systemic therapy as noted in the initial consult. However if she does have malignant involvement, then we would also recommend radiation to the involved areas. Current Visit: No Status: Chronic Priority: High Code(s): C50.919 - MALIGNANT NEOPLASM OF UNSP SITE OF UNSPECIFIED FEMALE BREAST SNOMED Code(s): 705898276 (4) Left upper extremity swelling Narrative/Plan: Outside Doppler was apparently negative. This could be due to lymphedema resulting from chronic ongoing fibrosis from her prior procedures. Compromise a subclavian stent is also possibility. The patient does have a compression sleeve at home, and was advised to start using it as soon as possible. Current Visit: Yes Status: Acute Code(s): M79.89 - OTHER SPECIFIED SOFT TISSUE DISORDERS SNOMED Code(s): 033368122
--- NOTE | 2019-04-09 12:56 | P.PN ---
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 She had initially seen her family physician on Thursday and started oxycodone in addition to her fentanyl patch on Thursday. However her pain was so severe on Thursday that she presented to the emergency department. She underwent x-ray evaluation there which showed abnormalities at T4 and T6 with suspected fractures. She was therefore transferred to our facility for spine evaluation. On arrival here she underwent a CT of the thoracic spine which showed a new compression fracture involving the T7 vertebral settlement with minimal bony retropulsion and surrounding paraspinal hematoma but no evidence of cord compression and a stable compression fracture of T5 with bony sclerosis. In the ER she was treated with pain medications and arrangements were made for admission. Her fentanyl patch was increased and she was continued on IV Dilaudid. Overnight on 04/06 her to let her requirements increased. Orthopedic spine was consulted who recommended a TLSO brace and possible surgical intervention if no improvement in her pain. Started on oral oxycodone in addition to IV dilaudid in order to see if can transition to oral pain medications. This has not worked well and she still cannot get out of bed. Patient seen and examined at bedside. She has only been out of bed to get to the bathroom and back. She states the pain is to severe. States that the IV and oral pain medication regimen along with increasing fentanyl still is not workin g. She reports that she feels as though she needs a kyphoplasty and that conservative management is not working. The brace feels too bulky. She states she did discuss this with orthopedics spine surgery this morning. Objective - Vital Signs Vital signs: Vital Signs Temp 97.9 F 04/09/19 04:30 Pulse 69 04/09/19 04:30 Resp 16 04/09/19 04:30 BP 90/54 04/09/19 04:30 Pulse Ox 94 L 04/09/19 04:30 Intake & Output 04/08/19 04/09/19 04/09/19 18:59 06:59 18:59 Intake Total 600 Balance 600 Intake: Oral 600 Other: Voiding Method Toilet Toilet # Voids 1 1 # Bowel Movements 1 - Exam General: Appears older than stated age, cachectic, no distress, non toxic, no distress, Derm: warm, dry Head: atraumatic, normocephalic, symmetric Eyes: EOMI, no lid lag, anicteric sclera Mouth: no lip lesion, mucus membranes moist Cardiovascular: S1S2 reg, no murmur, positive posterior tibial pulse bilateral, Lungs: CTA bilateral, no rhonchi, no rales , no accessory muscle use Abdominal: soft, nontender to palpation, no guarding, no appreciable organomegaly Ext: no gross muscle atrophy, no edema, no contractures Neuro: CN II-XI grossly intact, no focal neuro deficits Psych: Alert, oriented, appropriate affect - Labs CBC & Chem 7: 04/07/19 08:03 04/07/19 08:03 Assessment and Plan Assessment: Intractable back pain secondary to acute T7 fracture with chronic T5 fracture with retropulsion undetermined etiology -Dilaudid, oxycodone increased, fentanyl patch increased from a total of 37 g to 50 g 04/06. -orthopedic spine surgery recs appreciated conservative treatment with bracing and pain medications for now if no improvement then could consider biopsy and kyphoplasty Patient feels that conservative management is not working. -Oncology recs appreciated -increase ambulation Metastatic breast cancer with metastases to spine, small and large bowel, and liver -Xeloda -Oncology recommendations Constipation - MiraLAX - ducolax History of SIADH - Na better than baseline - repeat labs as outpatient unless clinical change Right sided hydronephrosis, improved to mild - f/u urology on d/c Left subclavian stenosis -Status post stenting per patient -Correction has been off baby ASA since prior surgeries in December. If no surgical intervention planned likely should consider restarting ASA Chronic anemia likely related to malignancy and chemotherapy at baseline -outpatient follow-up History subclinical hypothyroidism -Outpatient follow-up of TSH and free T4. DVT prophylaxis: SCDs Discussed with: Patient Anticipated discharge date: 1-[address]: home health and palliative care A total of 35 minutes was spent on the care of this complex patient more than 50% of the time was spent in counseling and care coordination.
--- NOTE | 2019-04-09 14:10 | US ---
EXAMINATION TYPE: US venous doppler duplex UE LT DATE OF EXAM: 04/09/2019 COMPARISON: NONE CLINICAL HISTORY: swelling, hx of subclavain clot. Patient states history of left subclavian vein col lapse with stent placement. The stent clogged and she was on Xeralto. She was taken off the thinner f or surgery and is not currently on a thinner. SIDE PERFORMED: Left Technically difficult due to patient being very thin and unable to use any pressure or vein is compre ssed. Left Arm: Negative for DVT Stent seen in left subclavian, is patent. IMPRESSION: 1. THIS EXAMINATION IS NEGATIVE FOR DVT WITHIN THE LEFT ARM. 2. LEFT SUBCLAVIAN STENT IS PATENT.
[2019-04-09] MEDS: ALPRAZolam 0.5 MG TAB PO PRN (21:57)
[2019-04-09] MEDS: ZOLPIDEM 5 MG TAB PO SCH (21:57)
[2019-04-10] MEDS: HYDROmorphone 1 MG/ML 1 ML SYRINGE IVP PRN ×4 (06:08→20:39)
[2019-04-10] MEDS: POLYETHYLENE GLYCOL 3350 17 GM POWD.PACK PO SCH ×2 (07:46→20:36)
--- NOTE | 2019-04-10 08:00 | P.PN ---
Subjective Progress Note Date: 04/10/19 This is a 68-year-old female who is admitted for T7 compression fracture and thoracic back pain. Patient has a history of metastatic breast cancer. Patient is seen and evaluated at bedside today. Patient states that her pain is controlled while she is resting in bed. Patient states that she was able to walk down the hallway and back to her room with her brace on yesterday, but this was painful. Patient denies any new complaints today. Objective - Vital Signs Vital signs: Vital Signs Temp 98.0 F 04/10/19 06:00 Pulse 69 04/10/19 06:00 Resp 14 04/10/19 06:00 BP 99/62 04/10/19 06:00 Pulse Ox 96 04/10/19 06:00 Intake & Output 04/09/19 04/10/19 04/10/19 18:59 06:59 18:59 Intake Total 1000 Balance 1000 Intake: Oral 1000 Other: Voiding Method Toilet # Voids 2 1 - Exam On exam patient is sitting up comfortably in bed in no acute distress. Patient has good range of motion of bilateral lower extremities. Patient has full range of motion of bilateral feet and ankles. Sensation intact. Calves are soft and nontender to palpation bilaterally. Neurovascular status and circulatory status are intact. - Labs CBC & Chem 7: 04/07/19 08:03 04/07/19 08:03 Assessment and Plan Assessment: History of metastatic breast cancer (1) Compression fracture of T7 vertebra Current Visit: Yes Status: Acute Code(s): S22.060A - WEDGE COMPRESSION FRACTURE OF T7-T8 VERTEBRA, INIT SNOMED Code(s): 369090484 (2) Intractable pain Current Visit: Yes Status: Acute Code(s): R52 - PAIN, UNSPECIFIED SNOMED Code(s): 40404312 Plan: 1. Recommend use of TLSO brace when out of bed. 2. Continue pain control. 3. NPO after midnight. 4. Plan to continue with conservative treatment if the patient's pain and mobilization continue to improve. Possible kyphoplasty with biopsy if the patient continues to have difficulty with patient management and mobilization.
--- NOTE | 2019-04-10 12:29 | P.PN ---
Subjective Progress Note Date: 04/10/19 The patient has been increasing her medication. She walks in the corridor yesterday with the brace on. However she states that she did not feel good, with significant increase in pain. Pain medications were effective partially. She is fairly comfortable at rest, but has some pain. No history of any loss of sensation or weakness in the legs, or loss of bowel or bladder sensation. Objective - Vital Signs Vital signs: Vital Signs Temp 98.0 F 04/10/19 06:00 Pulse 69 04/10/19 06:00 Resp 14 04/10/19 06:00 BP 99/62 04/10/19 06:00 Pulse Ox 96 04/10/19 06:00 Intake & Output 04/09/19 04/10/19 04/10/19 18:59 06:59 18:59 Intake Total 1000 Balance 1000 Intake: Oral 1000 Other: Voiding Method Toilet # Voids 2 1 - Constitutional General appearance: Present: no acute distress - EENT Eyes: Present: EOMI ENT: Present: hearing grossly normal, normal oropharynx - Respiratory Respiratory: bilateral: CTA - Cardiovascular Rhythm: regular Heart sounds: normal: S1, S2 - Gastrointestinal General gastrointestinal: Present: normal bowel sounds, soft - Integumentary Integumentary: Present: normal - Neurologic Neurologic: Present: CNII-XII intact - Musculoskeletal Musculoskeletal: Present: strength equal bilaterally - Psychiatric Psychiatric: Present: A&O x's 3, appropriate affect - Labs CBC & Chem 7: 04/07/19 08:03 04/07/19 08:03 Assessment and Plan (1) Compression fracture of T7 vertebra Current Visit: Yes Status: Acute Code(s): S22.060A - WEDGE COMPRESSION FRACTURE OF T7-T8 VERTEBRA, INIT SNOMED Code(s): 031295553 (2) Intractable pain Narrative/Plan: The patient still has discomfort, though it is improved, even at rest. She states that there was significant increased with ambulation, and she "did not feel good". She continues to require Dilaudid when necessary. She is on fentanyl, as is being attempted to be transitioned over to oxycodone by mouth when necessary. - As she continues to have persistent, significant symptoms despite some improvement, the plan from the orthopedic standpoint to likely proceed with kyphoplasty appears to be reasonable. Agree with the same. Current Visit: Yes Status: Acute Code(s): R52 - PAIN, UNSPECIFIED SNOMED Code(s): 70088028 (3) Metastatic breast cancer Narrative/Plan: The patient is in her week off Xeloda at this time. Await results of pathology if she does proceed with kyphoplasty. If she is positive, then radiation will be added to the spine. In addition we will also add either Xgeva or Zometa for bone strengthening. Current Visit: No Status: Chronic Priority: High Code(s): C50.919 - MALIGNANT NEOPLASM OF UNSP SITE OF UNSPECIFIED FEMALE BREAST SNOMED Code(s): 092729702 (4) Left upper extremity swelling Narrative/Plan: Dopplers were repeated here and were negative. Stent also appeared to be patent. This most likely represents lymphedema, due to long-term effects of her previous interventions in the left upper chest/left axillary area. The patient has been instructed to have her family member bring her sleeve that she can start using it. She could also benefit from lymphedema physical therapy as an outpatient Current Visit: Yes Status: Acute Code(s): M79.89 - OTHER SPECIFIED SOFT TISSUE DISORDERS SNOMED Code(s): 761592545
--- NOTE | 2019-04-10 14:59 | P.PN ---
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 She had initially seen her family physician on Thursday and started oxycodone in addition to her fentanyl patch on Thursday. However her pain was so severe on Thursday that she presented to the emergency department. She underwent x-ray evaluation there which showed abnormalities at T4 and T6 with suspected fractures. She was therefore transferred to our facility for spine evaluation. On arrival here she underwent a CT of the thoracic spine which showed a new compression fracture involving the T7 vertebral settlement with minimal bony retropulsion and surrounding paraspinal hematoma but no evidence of cord compression and a stable compression fracture of T5 with bony sclerosis. In the ER she was treated with pain medications and arrangements were made for admission. Her fentanyl patch was increased and she was continued on IV Dilaudid. Overnight on 04/06 her to let her requirements increased. Orthopedic spine was consulted who recommended a TLSO brace and possible surgical intervention if no improvement in her pain. Started on oral oxycodone in addition to IV dilaudid in order to see if can transition to oral pain medications. This has not worked well and she still cannot get out of bed. Tried to ambulate in the eng[place] 04/09 of difficulty pain. Unable to wear raises it fills too bulky. Patient seen and examined at bedside. States that it is very difficult to walk in the hallways a strange is having increased pain and difficulty with ambulating. She states with increased oxycodone seems to be helping but if she doesn't stay on top of her pain she still requiring IV Dilaudid. Feels that IV Dilaudid works better. Denies any chest pain or shortness of breath. Had a bowel movement yesterday. Objective - Vital Signs Vital signs: Vital Signs Temp 97.9 F 04/10/19 13:45 Pulse 63 04/10/19 13:45 Resp 16 04/10/19 13:45 BP 122/76 04/10/19 13:45 Pulse Ox 99 04/10/19 13:45 Intake & Output 04/09/19 04/10/19 04/10/19 18:59 06:59 18:59 Intake Total 1000 750 Balance 1000 750 Intake: Oral 1000 750 Other: Voiding Method Toilet # Voids 2 1 2 - Exam General: Appears older than stated age, cachectic, no distress, non toxic, no distress, Derm: warm, dry Head: atraumatic, normocephalic, symmetric Mouth: no lip lesion, mucus membranes moist Cardiovascular: S1S2 reg, no murmur, positive posterior tibial pulse bilateral, Lungs: CTA bilateral, no rhonchi, no rales , no accessory muscle use Abdominal: soft, nontender to palpation, no guarding, no appreciable organomegaly Ext: no gross muscle atrophy, + edema L UE, no contractures Neuro: CN II-XI grossly intact, no focal neuro deficits Psych: Alert, oriented, appropriate affect - Labs CBC & Chem 7: 04/07/19 08:03 04/07/19 08:03 Assessment and Plan Assessment: Intractable back pain secondary to acute T7 fracture with chronic T5 fracture with retropulsion undetermined etiology -Dilaudid, oxycodone [id number], fentanyl patch increased from a total of 37 g to 50 g 04/06. -orthopedic spine surgery recs appreciated: Discussed with practitioner covering for the weekend, possible kyphoplasty 04/11 -Oncology recs appreciated -increase ambulation Metastatic breast cancer with metastases to spine, small and large bowel, and liver -Xeloda -Oncology recommendations Constipation - MiraLAX - ducolax History of SIADH - Na better than baseline - repeat labs as outpatient unless clinical change Right sided hydronephrosis, improved to mild - f/u urology on d/c Left subclavian stenosis -Status post stenting per patient -Correction has been off baby ASA since prior surgeries in December. If no surgical intervention planned likely should consider restarting ASA - stent patent on UE ultrasound Chronic anemia likely related to malignancy and chemotherapy at baseline -outpatient follow-up History subclinical hypothyroidism -Outpatient follow-up of TSH and free T4. DVT prophylaxis: SCDs Discussed with: Patient Anticipated discharge date: 1-[address]: home health and palliative care A total of 35 minutes was spent on the care of this complex patient more than 50% of the time was spent in counseling and care coordination.
[2019-04-10] MEDS: ALPRAZolam 0.5 MG TAB PO PRN (21:45)
[2019-04-10] MEDS: ZOLPIDEM 5 MG TAB PO SCH (21:45)
[2019-04-11] MEDS: HYDROmorphone 1 MG/ML 1 ML SYRINGE IVP PRN ×7 (00:43→21:53)
[2019-04-11] MEDS: POLYETHYLENE GLYCOL 3350 17 GM POWD.PACK PO SCH ×2 (06:55→20:51)
[2019-04-11 08:33] LABS: Anisocytosis Slight; HGB 11.2 gm/dL (11.4-16.0); MCH 30.8 pg (25.0-35.0); MCHC 32.9 g/dL (31.0-37.0); MCV 93.7 fL (80.0-100.0); Platelet Count 264 k/uL (150-450); RBC 3.62 m/uL (3.80-5.40); RDW 16.8 % (11.5-15.5); WBC 4.3 k/uL (3.8-10.6)
[2019-04-11 08:41] LABS: African American GFR (CKD) >90 (>60 ml/min/1.73 sqM); Anion Gap 6 mmol/L; Blood Urea Nitrogen 8 mg/dL (7-17); Calcium 9.3 mg/dL (8.4-10.2); Carbon Dioxide 28 mmol/L (22-30); Chloride 99 mmol/L (98-107); Glucose 93 mg/dL (74-99); Non-African American GFR(CKD) >90 (>60 ml/min/1.73 sqM); Potassium 4.4 mmol/L (3.5-5.1); Sodium 133 mmol/L (137-145)
[2019-04-11 08:53] LABS: Prothrombin Time 10.6 sec (9.0-12.0)
--- NOTE | 2019-04-11 09:07 | P.PN ---
Progress Note - Text Progress Note Date: 04/11/19 Patient is a very pleasant 68-year-old female who is seen at bedside for further evaluation in regards to her known T7 compression fracture deformity. Over the weekend she has not had any improvement of her symptoms. She continues to have pain in her midthoracic spine. Her pain is better controlled while at rest. Her pain is significant exacerbated while ambulating the hallways. A prescription for a TLSO brace was prescribed and provided to case management. This brace has been delivered and fitted appropriately at bedside. She has had difficulty wearing this brace and does not find it comfortable. She does not feel it adequately controls her pain. It was previously discussed she may be a candidate for T7 kyphoplasty and biopsy. Patient states at this time she would like to proceed forward with this treatment option. Patient states her pain started on 04/01/2019 after waking up in the morning without injury. She is known have breast cancer and is currently receiving treatment. She states she had surgery for a bowel obstruction earlier year and has been using fentanyl patch and that time is unsure how much benefit that patch is. She has an exacerbation of thoracic back pain with any active range of motion of her thoracic spine. She denies any lower extremity weakness radiculopathy bilaterally. Patient continues to be seeing exam by medicine and oncology. Dictation from oncology and medicine indicates patient would be a candidate for a viewpoint for kyphoplasty and biopsy of T7. Patient states she does have a history of left upper extremity swelling and uses a compression sleeve. She states the swelling is due to side effect of her breast cancer. Physical exam: Patient is awake, alert, and oriented 3 Vital signs stable Good chest excursion with deep inspiration and expiration Examination of thoracic spine reveals skin is intact with no abrasions, aspirations, or bruises; no erythema, purulence or signs of infection Pain with palpation along the midline of the mid thoracic spine Evidence of skin changes of erythema ab-igne due to heating pad Dorsiflexion, plantarflexion, and extensor hallucis longus positive sustained bilaterally Lower extremity strength 5/5 bilaterally Patient is able to move legs of bilateral lower extremities independently in bed without difficulty Straight leg test negative bilateral lower extremities No signs or symptoms of DVT; no calf pain Neurovascularly intact Pertinent studies: CT of the thoracic spine taken on 04/06/2019: Acute T7 compression fracture deformity with approximately 50% height loss and surrounding paraspinal hematoma; chronic T5 compression fracture deformity with approximately 80% height loss which appears stable with evidence of bony sclerosis Assessment: Acute thoracic back pain Acute nontraumatic T7 compression fracture deformity Chronic T5 compression fracture deformity Metastatic breast cancer with metastasis to spine, small and large bowel, and liver Left upper extremity swelling History of bowel surgery performed in 2019 Plan: 1. After further discussion with the patient, physical examination the patient, reviewing imaging, and further discussion with Dr. Rafi Lal, we will plan to proceed for surgical intervention today. Patient has evidence of an acute T7 compression fracture deformity and has not had any improvement of her symptoms with conservative treatment including bracing. She does not have a known injury to exacerbate her thoracic back pain or cause her compression fracture deformity. Patient does have a history of metastatic breast cancer. At this time, we'll plan to proceed forward with surgical intervention. The proposed surgical intervention is a T7 kyphoplasty and biopsy. Patient is currently nothing by mouth status. We will plan for surgical intervention this afternoon, 04/11/2019. I discussed T7 compression fracture deformity and kyphoplasty with biopsy procedure with the patient at length and I answered all of their questions to the best of my ability and the patient understands. I discussed the risk of surgical intervention and alternative treatment options. The risk of surgical intervention was explained to the patient in detail including but not limited to risk of bleeding, risk of infection, risk and need for further surgery, risk of decreased loss of motion of function, malunion, nonunion, hardware failure, nerve damage, paralysis, heart attack, , as well as the fact that surgery may not alleviate her symptoms. I answered all the patient's questions the best of my ability. The patient would like to proceed forward with surgical intervention and will sign informed consent. Patient has been discussed in detail with nursing will plan to verify patient has been cleared from an oncology and ankle standpoint prior to surgical intervention. 2. Patient will continue being seen and examined by medicine and oncology
[2019-04-11] MEDS ORDERED: IV FLUID CONTINUATION 1,000 ML IV ONE (13:05)
[2019-04-11] MEDS ORDERED: ONDANSETRON 4 MG/2 ML VIAL IVP ONE (13:18)
[2019-04-11] MEDS ORDERED: HYDROmorphone 0.5 MG/0.5 ML SYRINGE IVP ONE (13:20)
[2019-04-11] MEDS ORDERED: IOHEXOL 180 MG/ML 1 ML ML MISCELLANE STA (13:22)
[2019-04-11] MEDS ORDERED: IOPAMIDOL M200 10 ML VIAL MISCELLANE STA (13:24)
[2019-04-11] MEDS ORDERED: fentaNYL (PF) 50 MCG/ML 2 ML AMP ONE (13:30)
[2019-04-11] MEDS ORDERED: SUCCINYLCHOLINE CHLORIDE 100 MG/5 ML SYR IV ONE (13:30)
[2019-04-11] MEDS ORDERED: PROPOFOL 10 MG/ML 20 ML VIAL IV ONE (13:30)
[2019-04-11] MEDS ORDERED: LIDOCAINE 1% INJ 10MG/ML (20 ML MDV) ONE (13:30)
[2019-04-11] MEDS ORDERED: MIDAZOLAM 2 MG/2 ML VIAL ONE (13:30)
--- NOTE | 2019-04-11 13:37 | P.PN ---
Progress Note - Text Anesthesia 1334. He discussed with patient the changing of her no CODE STATUS to a full CODE STATUS in the immediate perioperative period as is customarily done. She understands the rationale in light of the various resuscitative measures that occur during any routine general anesthetic for this particular procedure and accepts the change.
[2019-04-11] MEDS ORDERED: IOPAMIDOL M200 10 ML VIAL INTRATHECA ONE (14:04)
[2019-04-11] MEDS ORDERED: IOPAMIDOL M200 10 ML VIAL MISCELLANE ONE (14:04)
[2019-04-11] MEDS ORDERED: BUPIVACAINE (PF) 0.5% 30 ML VIAL SQ ONE (14:25)
[2019-04-11] MEDS ORDERED: LACTATED RINGERS 1,000 ML IV ONE (14:31)
[2019-04-11] MEDS ORDERED: BENZOCAINE/MENTHOL LOZENG 1 EACH LOZENGE MUCOUS MEM PRN (14:43)
[2019-04-11] MEDS ORDERED: HYDROcodone/APAP 5-325MG 1 EACH TAB PO PRN (14:43)
--- NOTE | 2019-04-11 14:43 | P.OP ---
Date of Procedure: 04/11/19 Preoperative Diagnosis: T7 acute compression fracture, pathologic due to presumptive osteoporosis Postoperative Diagnosis: Same Anesthesia: GETA Pathology: other (T7 vertebral body biopsy sent to pathology) Condition: stable Disposition: PACU Description of Procedure: BRIEF OPERATIVE NOTE Preoperative Diagnosis: Vertebral compression fracture at T7, presumptive pathologic due to osteoporosis Postoperative Diagnosis: Same Procedure: Kyphoplasty of T7 Vertebral body biopsy of T7 Use of biplanar fluoroscopic guidance Surgeon: Dr. Lal Special Machine Stitcher: Keith Loo is present throughout the entire the case persistence during positioning, dissection, exposure, visualization, and all crucial elements of the case as well as closure. Anesthesia: General anesthesia per Dr. Rick Estimated blood loss: Less than 10 mL Specimen: Vertebral body biopsy of T7 sent to pathology in formalin Complications: None apparent Components implanted: Bone cement Disposition: To recovery room in good stable condition. OPERATIVE INDICATIONS The patient has been having issues in their back over the past few weeks. She is known to have metastatic cancer with metastasis to her:. She was not known whether she had had metastasis to her osseous structures. She had a history of a compression fracture at T5 in the past which went on to heal conservatively. She was found to have a new compression fracture at T7 which is causing her significant debility and pain at her mid back. The patient has been through conservative treatment with bracing over the past several days but has not had any benefit and is having some worsening of her symptoms. They attempted conservative care with bracing however they're not having any benefit despite brace use. They continue to have significant pain and debility due to their fracture. With the fact that she has metastatic cancer without known osseous involvement and her new fracture with significant pain we discussed the possibility of surgical intervention with biopsy and kyphoplasty. Medicine as well as oncology was involved in this and they're interested in the possibility of biopsy as well. We discussed various treatment options including surgery, and the patient wishes to proceed with surgery We discussed the risk, patient's alternatives and benefits of surgery including but not limited to, risk of bleeding risk of infection, risk of need for further surgery, risk of decreased, loss of motion, loss of function, cement extravasation, nerve damage, paralysis, heart attack, blindness and . OPERATIVE SUMMARY After discussing all the risks, patient alternatives and benefits at length, the patient elected to proceed with surgical intervention, signed informed consent, and presented for their procedure. The patient was seen and examined in the preoperative holding area and the surgical site was marked. The patient was given antibiotics and brought to the operating room. The patient was sedated and intubated by anesthesia in standard fashion. The patient was positioned on to the operating room table in a prone position on the appropriate well-padded and well molded bilateral chest rolls. We were careful to pad any bony prominences and pressure points. She also has a port at her right chest which was positioned appropriately without any pressure over the port. We were careful to maintain the patient's cervical spine and good neutral alignment and position throughout. We used 2 C-arm machines to establish biplanar fluoroscopic guidance in AP and lateral positions. We were able to localize the fractures appropriately at T7 noting the compression fracture at T5 as well.. The patient was prepped and draped in a normal standard fashion. An appropriate timeout and keystone protocol performed. We were able to proceed with the surgery. The local wound area was infiltrated with local anesthetic at T7 on the right. An incision was made over the lateral aspect of the pedicle over the appropriate levels with a small 2 mm stab incision. Intraoperative fluoroscopy was taken which showed a marker at the appropriate level. With the appropriate level positively confirmed at T7, I was able to position a sharp trocar over the lateral aspect of the pedicle. As able to advance the trocar into the pedicle and into the posterior aspect of vertebral body being careful to avoid penetration cephalad caudad or medially. The trocar was placed appropriately into the posterior aspect of vertebral body at the appropriate levels. This was confirmed with C-arm guidance. With the trocar intact I was then able to take a bone biopsy with a biopsy punch or a bony drill. The biopsy specimen was passed off to be sent to pathology in formalin. I was then able to place the kyphoplasty balloon within the vertebral body. The position was checked on C-arm. I was able to inflate the balloon under low pressure and visualization with C-arm. The balloon was well enclosed within the vertebral body. The cement was prepared. With the cement at appropriate working condition the balloons were deflated and removed. I was able to place bony cement with trocar with the cement delivery device under low pressure. It had good fill within the vertebral body. There is no evidence of any extravasation of the cement posteriorly toward the canal. The cement was well contained at the appropriate levels. The cement was allowed to cure appropriately. The trochars removed and final images were taken on C-arm. This showed the cement at the appropriate level of T7 with approximately 2 half cc of bone cement. We were able to proceed with closure. The wound was cleaned and dried and dressed with the appropriate dressing. The drapes were broken down. The patient was gently rolled back onto their hospital bed being careful to maintain their cervical spine and good neutral alignment and position. They were woken up by anesthesia, extubated, and brought to the recovery room in good stable condition. The patient will be admitted to the hospital for observation and for appropriate postoperative care, medical management and monitoring. We will continue to follow them closely about the postoperative course.
--- NOTE | 2019-04-11 14:43 | P.PN ---
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 She had initially seen her family physician on Thursday and started oxycodone in addition to her fentanyl patch on Thursday. However her pain was so severe on Thursday that she presented to the emergency department. She underwent x-ray evaluation there which showed abnormalities at T4 and T6 with suspected fractures. She was therefore transferred to our facility for spine evaluation. On arrival here she underwent a CT of the thoracic spine which showed a new compression fracture involving the T7 vertebral settlement with minimal bony retropulsion and surrounding paraspinal hematoma but no evidence of cord compression and a stable compression fracture of T5 with bony sclerosis. In the ER she was treated with pain medications and arrangements were made for admission. Her fentanyl patch was increased and she was continued on IV Dilaudid. Overnight on 04/06 her to let her requirements increased. Orthopedic spine was consulted who recommended a TLSO brace and possible surgical intervention if no improvement in her pain. Started on oral oxycodone in addition to IV dilaudid in order to see if can transition to oral pain medications. This has not worked well and she still cannot get out of bed. Tried to ambulate in the engle 04/09 of difficulty pain. Unable to wear brace for long as it feels too bulky. Plan is for kyphoplasty today. Patient seen and examined at bedside. Still having severe pain and not able to ambulate long distances. No chest pain or shortness of breath. Patient is not able to walk up a flight of stairs of down a city block due to weakness. She does not have chest pain or shortness of breath her legs get weak. Her exercise tolerance has been increasing. She has not had any episodes of chest pain in the last 6 months, no syncope. Objective - Vital Signs Vital signs: Vital Signs Temp 97.9 F 04/11/19 13:09 Pulse 68 04/11/19 13:09 Resp 16 04/11/19 13:09 BP 125/70 04/11/19 13:09 Pulse Ox 98 04/11/19 13:09 Intake & Output 04/10/19 04/11/19 04/11/19 18:59 06:59 18:59 Intake Total 750 50 Balance 750 50 Weight 48.081 kg Intake: IV 50 Oral 750 Other: Voiding Method Toilet Toilet # Voids 2 2 1 # Bowel Movements 1 - Exam General: Appears older than stated age, cachectic, no distress, non toxic, no distress, Derm: warm, dry Head: atraumatic, normocephalic, symmetric Mouth: no lip lesion, mucus membranes moist Cardiovascular: S1S2 reg, no murmur, positive posterior tibial pulse bilateral, Lungs: decreased bs bilateral, no rhonchi, no rales , no accessory muscle use Abdominal: soft, nontender to palpation, no guarding, no appreciable organomegaly Ext: no gross muscle atrophy, + edema L UE, no contractures Neuro: CN II-XI grossly intact, no focal neuro deficits Psych: Alert, oriented, appropriate affect unable to sit forward due to pain. - Labs CBC & Chem 7: 04/11/19 07:34 04/11/19 07:34 Labs: Abnormal Lab Results - Last 24 Hours (Table) 04/11/19 04/11/19 Range/Units 07:34 07:34 RBC 3.62 L (3.80-5.40) m/uL Hgb 11.2 L (11.4-16.0) gm/dL RDW 16.8 H (11.5-15.5) % Sodium 133 L (137-145) mmol/L Assessment and Plan Assessment: Intractable back pain secondary to acute T7 fracture with chronic T5 fracture with retropulsion undetermined etiology - Plan is for kyphoplasty today. Patient is at an acceptable risk for this no cardiac procedure. RCRI is 0 points with 3.9% risk of , VT, or cardiac arrest -Dilaudid, oxycodone increase d11/9, fentanyl patch increased from a total of 37 g to 50 g 04/06. -orthopedic spine surgery recs appreciated kyphoplasty today, Resume ASA when okay with spine SX -Oncology recs appreciated -increase ambulation Metastatic breast cancer with metastases to spine, small and large bowel, and liver -Xeloda -Oncology recommendations Constipation, improved - MiraLAX - ducolax History of SIADH - Na is at baseline - repeat labs as outpatient unless clinical change Right sided hydronephrosis, improved to mild - f/u urology on d/c Left subclavian stenosis -Status post stenting per patient -Correction has been off baby ASA since prior surgeries in December. If no surgical intervention planned likely should consider restarting ASA - stent patent on UE ultrasound Chronic anemia likely related to malignancy and chemotherapy at baseline -outpatient follow-up History subclinical hypothyroidism -Outpatient follow-up of TSH and free T4. DVT prophylaxis: SCDs Discussed with: Patient Anticipated discharge date: in AM Anticipated discharge place: home health and palliative care A total of 35 minutes was spent on the care of this complex patient more than 50% of the time was spent in counseling and care coordination.
--- NOTE | 2019-04-11 15:10 | XR ---
1 view thoracic spine HISTORY: Kyphoplasty Four intraoperative C-arm images document the procedure.
--- NOTE | 2019-04-11 15:12 | FL ---
Fluoroscopy HISTORY: Kyphoplasty 48 seconds fluoroscopy time supplied to the referring clinician. 4 intraoperative C-arm images docum ent the procedure. See dictated report from orthopedic surgery.
[2019-04-11] MEDS: SODIUM CHLORIDE 0.9% 1,000 ML IV SCH (15:47)
--- NOTE | 2019-04-11 16:37 | P.PN ---
Subjective Progress Note Date: 04/11/19 Principal diagnosis: T-spine compression fx, Hx metastatic breast cancer In f/u today pt is looking forward to kyphoplasty with hopes of some further pain relief. Current analgesics make pain tolerable for minimal activity, she cannot be very active, she has had a BM, no other physical c/o at this time. Objective - Vital Signs Vital signs: Vital Signs Temp 98.4 F 04/11/19 04:49 Pulse 70 04/11/19 04:49 Resp 14 04/11/19 04:49 BP 95/60 04/11/19 04:49 Pulse Ox 95 04/11/19 04:49 Intake & Output 04/10/19 04/11/19 04/11/19 18:59 06:59 18:59 Intake Total 750 Balance 750 Weight 48.081 kg Intake: Oral 750 Other: Voiding Method Toilet Toilet # Voids 2 2 1 # Bowel Movements 1 - Constitutional General appearance: Present: cooperative, no acute distress, thin - EENT Eyes: Present: anicteric sclerae, EOMI ENT: Present: hearing grossly normal - Respiratory Respiratory: bilateral: CTA - Cardiovascular Heart sounds: normal: S1, S2 - Peripheral edema leg Peripheral Edema: bilateral: None - Gastrointestinal General gastrointestinal: Present: normal bowel sounds, soft - Integumentary Integumentary: Present: normal - Neurologic Neurologic: Present: CNII-XII intact - Musculoskeletal Musculoskeletal: Present: generalized weakness - Psychiatric Psychiatric: Present: A&O x's 3, appropriate affect, intact judgment & insight - Labs CBC & Chem 7: 04/11/19 07:34 04/11/19 07:34 Labs: Abnormal Lab Results - Last 24 Hours (Table) 04/11/19 04/11/19 Range/Units 07:34 07:34 RBC 3.62 L (3.80-5.40) m/uL Hgb 11.2 L (11.4-16.0) gm/dL RDW 16.8 H (11.5-15.5) % Sodium 133 L (137-145) mmol/L Assessment and Plan (1) Compression fracture of T7 vertebra Narrative/Plan: Pending Orthospine intervention with kyphoplasty. Pending pathology. If malignant XRT will be ordered. Current Visit: Yes Status: Acute Priority: High Code(s): S22.060A - WEDGE COMPRESSION FRACTURE OF T7-T8 VERTEBRA, INIT SNOMED Code(s): 311786313 (2) Metastatic breast cancer Narrative/Plan: Pt due to start xeloda. Based on her post procedure course she may resume Xeloda as sched this Sat. Will follow up with pt and give instructions Current Visit: Yes Status: Chronic Priority: High Code(s): C50.919 - MALIGNANT NEOPLASM OF UNSP SITE OF UNSPECIFIED FEMALE BREAST SNOMED Code(s): 692881629
[2019-04-11] MEDS: ZOLPIDEM 5 MG TAB PO SCH (21:53)
[2019-04-11] MEDS: ALPRAZolam 0.5 MG TAB PO PRN (21:53)
[2019-04-12] MEDS: SODIUM CHLORIDE 0.9% 1,000 ML IV SCH ×2 (03:40→17:47)
[2019-04-12] MEDS: HYDROmorphone 1 MG/ML 1 ML SYRINGE IVP PRN ×3 (05:09→12:55)
[2019-04-12] MEDS: POLYETHYLENE GLYCOL 3350 17 GM POWD.PACK PO SCH ×2 (07:31→21:06)
[2019-04-12 07:56] LABS: Anisocytosis Slight; Basophils # (A) 0.1 k/uL (0-0.2); Basophils % (A) 2 %; Eosinophils # (A) 0.3 k/uL (0-0.7); Eosinophils % (A) 5 %; HCT 32.5 % (34.0-46.0); HGB 10.6 gm/dL (11.4-16.0); Lymphocytes # (A) 1.1 k/uL (1.0-4.8); Lymphocytes % (A) 20 %; MCH 30.4 pg (25.0-35.0); MCHC 32.6 g/dL (31.0-37.0); MCV 93.5 fL (80.0-100.0); Mean Platelet Volume 6.4; Monocytes # (A) 0.4 k/uL (0-1.0); Monocytes % (A) 8 %; Neutrophils # (A) 3.5 k/uL (1.3-7.7); Neutrophils % (A) 64 %; Platelet Count 255 k/uL (150-450); RBC 3.47 m/uL (3.80-5.40); RDW 16.8 % (11.5-15.5); WBC 5.4 k/uL (3.8-10.6)
--- NOTE | 2019-04-12 10:29 | P.PN ---
Subjective Progress Note Date: 04/12/19 Principal diagnosis: Back pain Feeling better but patient is still having significant pain in the back. She is using Dilaudid IV every 2-4 hours. No nausea or vomiting. No fevers or chills. No constipation. Objective - Vital Signs Vital signs: Vital Signs Temp 98.5 F 04/12/19 05:00 Pulse 74 04/12/19 05:00 Resp 18 04/12/19 05:00 BP 104/68 04/12/19 05:00 Pulse Ox 97 04/12/19 05:00 Intake & Output 04/11/19 04/12/19 04/12/19 18:59 06:59 18:59 Intake Total 400 650 Output Total 5 Balance 395 650 Weight 48.081 kg Intake: IV 400 Oral 650 Output: Estimated Blood Loss 5 Other: Voiding Method Toilet Toilet Bedside Commode # Voids 1 2 - Exam General: Appears older than stated age, cachectic, no distress, non toxic, no distress, Derm: warm, dry Head: atraumatic, normocephalic, symmetric Mouth: no lip lesion, mucus membranes moist Cardiovascular: S1S2 reg, no murmur, positive posterior tibial pulse bilateral, Lungs: decreased bs bilateral, no rhonchi, no rales , no accessory muscle use Abdominal: soft, nontender to palpation, no guarding, no appreciable organomegaly Ext: no gross muscle atrophy, + edema L UE, no contractures Neuro: CN II-XI grossly intact, no focal neuro deficits Psych: Alert, oriented, appropriate affect unable to sit forward due to pain. - Labs CBC & Chem 7: 04/12/19 07:08 04/11/19 07:34 Labs: Abnormal Lab Results - Last 24 Hours (Table) 04/12/19 Range/Units 07:08 RBC 3.47 L (3.80-5.40) m/uL Hgb 10.6 L (11.4-16.0) gm/dL Hct 32.5 L (34.0-46.0) % RDW 16.8 H (11.5-15.5) % Assessment and Plan Plan: Intractable back pain secondary to acute T7 fracture with chronic T5 fracture with retropulsion undetermined etiology - S/p kyphoplasty 04/11. -Dilaudid, oxycodone increase 11/9, fentanyl patch increased from a total of 37 g to 50 g 04/06. -Patient will probably need pain management referral, outpatient -Resume ASA when okay with spine SX -Oncology recs appreciated -increase ambulation -Seen by PT Metastatic breast cancer with metastases to spine, small and large bowel, and liver -Xeloda -Oncology recommendations Constipation, improved - MiraLAX - ducolax History of SIADH - Na is at baseline - repeat labs as outpatient unless clinical change Right sided hydronephrosis, improved to mild - f/u urology on d/c Left subclavian stenosis -Status post stenting per patient -Has been off baby ASA since prior surgeries in December. Restarting ASA when surgery okay with that. - stent patent on UE ultrasound Chronic anemia likely related to malignancy and chemotherapy at baseline -outpatient follow-up History subclinical hypothyroidism -Outpatient follow-up of TSH and free T4. DVT prophylaxis: SCDs Discussed with: Patient Anticipated discharge date: in AM Anticipated discharge place: home health and palliative care A total of 35 minutes was spent on the care of this complex patient more than 50% of the time was spent in counseling and care coordination.
--- NOTE | 2019-04-12 11:18 | P.PN ---
Subjective Progress Note Date: 04/12/19 Principal diagnosis: T-spine compression fx, Hx metastatic breast cancer In f/u today pt states not much difference in her pain but, she did get up and walk in the [place] with walker. She has had BM, denies nausea, cough. Pt states she has had 2 episodes of BM in her sleep-one before procedure and one last night, no numbness or tingling, she has sensation to have a BM when she is awake, no urinary incontinence Objective - Vital Signs Vital signs: Vital Signs Temp 98.5 F 04/12/19 05:00 Pulse 74 04/12/19 05:00 Resp 18 04/12/19 05:00 BP 104/68 04/12/19 05:00 Pulse Ox 97 04/12/19 05:00 Intake & Output 04/11/19 04/12/19 04/12/19 18:59 06:59 18:59 Intake Total 400 650 Output Total 5 Balance 395 650 Weight 48.081 kg Intake: IV 400 Oral 650 Output: Estimated Blood Loss 5 Other: Voiding Method Toilet Toilet Bedside Commode # Voids 1 2 - Constitutional General appearance: Present: cooperative, no acute distress, thin - EENT Eyes: Present: anicteric sclerae, EOMI ENT: Present: hearing grossly normal - Respiratory Details: respirations even and unlabored at rest - Labs CBC & Chem 7: 04/12/19 07:08 04/11/19 07:34 Labs: Abnormal Lab Results - Last 24 Hours (Table) 04/12/19 Range/Units 07:08 RBC 3.47 L (3.80-5.40) m/uL Hgb 10.6 L (11.4-16.0) gm/dL Hct 32.5 L (34.0-46.0) % RDW 16.8 H (11.5-15.5) % Assessment and Plan (1) Compression fracture of T7 vertebra Narrative/Plan: S/P Orthospine intervention with kyphoplasty. Pending pathology. If malignant XRT will be ordered. Current Visit: Yes Status: Acute Priority: High Code(s): S22.060A - WEDGE COMPRESSION FRACTURE OF T7-T8 VERTEBRA, INIT SNOMED Code(s): 361215908 (2) Metastatic breast cancer Narrative/Plan: Pt due to start xeloda cycle this Sat. So far she is doing well post procedure and the plan is to start next Xeloda cycle as sched this Sat. Current Visit: Yes Status: Chronic Priority: High Code(s): C50.919 - MALIGNANT NEOPLASM OF UNSP SITE OF UNSPECIFIED FEMALE BREAST SNOMED Code(s): 521399102 (3) Intractable pain Narrative/Plan: Pain medications have been adjusted and will continue to be adjusted so that pt is taking 1 short acting and 1 long acting narcotic with addition of NSAIDs or musc/skeletal relaxants meds. Encouraged pt to use oral meds so we can appropriately adjust doses Reviewed prevention of narcotic induced constipation. Current Visit: Yes Status: Acute Priority: High Code(s): R52 - PAIN, UNSPECIFIED SNOMED Code(s): 11613978
--- NOTE | 2019-04-12 12:52 | P.PN ---
Progress Note - Text Progress Note Date: 04/12/19 Orthopedic spine: History of present illness: luis is a very pleasant 68-year-old female who is seen at bedside for further evaluation in regards to her known T7 compression fracture deformity. She underwent T7 kyphoplasty and biopsy yesterday, 04/11/2019. She feels she continues to have some pain at the fracture site of T7 but feels she has had some improvement of pain overall as compared to prior to surgical intervention. She states she has soreness currently at the surgical site. She has been able to work with physical therapy to increase mobilization and has been walking with a walker. Patient is refrain from wearing the TLSO brace as she has not found a comfortable. Since being seen examined yesterday, she has a spur and some increased left-sided lower rib pain without known injury. She is known have breast cancer and is currently receiving treatment. She states she had surgery for a bowel obstruction earlier year and has been using fentanyl patch and that time is unsure how much benefit that patch is. She denies any lower extremity weakness radiculopathy bilaterally. Patient continues to be seeing exam by medicine and oncology. Patient states she does have a history of left upper extremity swelling and uses a compression sleeve. She states the swelling is due to side effect of her breast cancer. Physical exam: Patient is awake, alert, and oriented 3 Vital signs stable Good chest excursion with deep inspiration and expiration Examination of thoracic spine reveals skin is intact with no abrasions, lacerations, or bruises; no erythema, purulence or signs of infection Dressing over approximately T7 is clean, dry, and intact; no drainage and surgical site No significant pain with palpation along the midline of the mid thoracic spine Some point tenderness pain with palpation over the left lateral inferior rib Dorsiflexion, plantarflexion, and extensor hallucis longus positive sustained bilaterally Lower extremity strength 5/5 bilaterally Patient is able to move legs of bilateral lower extremities independently in bed without difficulty Straight leg test negative bilateral lower extremities No signs or symptoms of DVT; no calf pain Neurovascularly intact Pertinent studies: CT of the thoracic spine taken on 04/06/2019: Acute T7 compression fracture deformity with approximately 50% height loss and surrounding paraspinal hematoma; chronic T5 compression fracture deformity with approximately 80% height loss which appears stable with evidence of bony sclerosis Assessment: Atatus post T7 kyphoplasty and biopsy performed on 04/11/2019 Acute thoracic back pain Acute nontraumatic T7 compression fracture deformity Chronic T5 compression fracture deformity Acute left-sided lateral inferior rib pain Metastatic breast cancer with metastasis to spine, small and large bowel, and liver Left upper extremity swelling History of bowel surgery performed in 2019 Plan: 1. Patient underwent a T7 kyphoplasty and biopsy performed yesterday, 04/11/2019. She continues to have some pain at her fracture site and describes most significantly soreness, but feels she has had some improvement of her pain. She's been able to work with physical therapy to increase mobility and ambulation. She continues to deny any lower extremity weakness radiculopathy bilaterally. At this time, patient may continue to work with therapy to increase mobilization. Patient does not need to wear the previously prescribed TLSO brace. Patient has been experiencing some left-sided rib pain following surgical intervention without known injury. No known injury happened during surgical intervention. We discussed this may be more positioning and musculoskeletal in nature and should improve with time. From orthopedic spine standpoint, patient is clear for discharge. We will plan to have her follow-up with Keith Randall PA-C or Dr. Rafi Lal at [facility] in approximately 2-3 weeks for further evaluation. 2. Patient will continue being seen and examined by medicine and oncology
[2019-04-12] MEDS: ALPRAZolam 0.5 MG TAB PO PRN (20:31)
[2019-04-12] MEDS: ZOLPIDEM 5 MG TAB PO SCH (21:06)
[2019-04-13 04:34] VITALS: BP 99/63; PULSE 67; RESP 12; TEMP 97.6
[2019-04-13] MEDS: POLYETHYLENE GLYCOL 3350 17 GM POWD.PACK PO SCH (08:06)
[2019-04-13] MEDS: SODIUM CHLORIDE 0.9% 1,000 ML IV SCH (08:07)
--- NOTE | 2019-04-13 10:53 | P.DS ---
Providers Date of admission: 04/07/19 11:51 Expected date of discharge: 04/13/19 Attending physician: Morelia Law DO Consults: 04/06/19 16:22 Consult Physician Routine Consulting Provider: Bjorn Reeves Consult Reason/Comments: Compression fracture; Hx of metastatic breast cancer Do you want consulting provider notified?: Yes Consult Physician Routine Consulting Provider: Darrin Lal Consult Reason/Comments: T7 Compression fracture; Intractable pain Do you want consulting provider notified?: Already Contacted Primary care physician: Demarco Stroud MD Hospital Course: Discharge diagnoses Acute pathologic T7 compression fracture secondary to osteoporosis status post kyphoplasty Intractable back pain 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 She had initially seen her family physician on Thursday and started oxycodone in addition to her fentanyl patch on Thursday. However her pain was so severe on Thursday that she presented to the emergency department. She underwent x-ray evaluation there which showed abnormalities at T4 and T6 with suspected fractures. She was therefore transferred to our facility for spine evaluation. On arrival here she underwent a CT of the thoracic spine which showed a new compression fracture involving the T7 vertebral settlement with minimal bony retropulsion and surrounding paraspinal hematoma but no evidence of cord compression and a stable compression fracture of T5 with bony sclerosis. In the ER she was treated with pain medications and arrangements were made for admission. Her fentanyl patch was increased and she was continued on IV Dilaudid. Overnight on 04/06 her opiate requirements increased. Orthopedic spine was consulted who recommended a TLSO brace and possible surgical intervention if no improvement in her pain. Started on oral oxycodone in addition to IV dilaudid in order to see if can transition to oral pain medications. This has not worked well and she still cannot get out of bed. Tried to ambulate in the [place] 04/09 of difficulty pain. Kyphoplasty was performed by Dr. Lal 04/11,the patient did well postoperatively and was subsequently discharged home in stable condition and told to follow-up with her PCP Dr. Stroud 04/15. Discharge process took approximately 35 minutes focused exam Integumentary: Thoracic spine exam reveals intact skin with no abrasion or laceration or bruises no erythema or purulence, chest is clean dry and intact MSK: No significant pain with palpation along the mid thoracic spine, some point tenderness over the left lateral inferior rib, EHL positive bilaterally Patient Condition at Discharge: Good Plan - Discharge Summary New Discharge Prescriptions: New fentaNYL 50MCG/HR PATCH [Duragesic 50MCG/HR] 1 patch TRANSDERM Q72H #2 patch HYDROcodone/APAP 5-325MG [Sebastian 5-325] 1 each PO Q4HR PRN #18 tab PRN Reason: Moderate Pain Continue ALPRAZolam [Xanax] 0.5 mg PO TID PRN PRN Reason: Anxiety Zolpidem Tartrate [Ambien Cr] 12.5 mg PO HS #3 tab oxyCODONE HCL [Oxaydo] 5 - 10 mg PO Q6H PRN PRN Reason: Pain Polyethylene Glycol 3350 [Miralax] 17 gm PO BID Capecitabine [Xeloda] 500 - 1,000 mg PO DIRECTED Discontinued fentaNYL 12MCG/HR PATCH [Duragesic 12MCG/HR] 1 patch TRANSDERM Q72H #1 patch fentaNYL 25MCG/HR PATCH [Duragesic 25MCG/HR] 1 patch TRANSDERM Q72H #1 patch Discharge Medication List ALPRAZolam [Xanax] 0.5 mg PO TID PRN 01/02/19 [History] Zolpidem Tartrate [Ambien Cr] 12.5 mg PO HS #3 tab 01/27/19 [Rx] Capecitabine [Xeloda] 500 - 1,000 mg PO DIRECTED 04/06/19 [History] Polyethylene Glycol 3350 [Miralax] 17 gm PO BID 04/06/19 [History] oxyCODONE HCL [Oxaydo] 5 - 10 mg PO Q6H PRN 04/06/19 [History] HYDROcodone/APAP 5-325MG [Sebastian 5-325] 1 each PO Q4HR PRN #18 tab 04/13/19 [Rx] fentaNYL 50MCG/HR PATCH [Duragesic 50MCG/HR] 1 patch TRANSDERM Q72H #2 patch 04/13/19 [Rx] Follow up Appointment(s)/Referral(s): Keith Randall PAC [PHYSICIAN WINDSCREEN FITTER] - 04/26/19 10:15 am (office will send paper work in mail to bring to appointment.) [facility], [NON-STAFF] - (with Palliative care) Demarco Stroud MD [Primary Care Provider] - 04/15/19 11:00 am Patient Instructions/Handouts: Vertebral Compression Fracture (DC) Activity/Diet/Wound Care/Special Instructions: 1. Patient should avoid excessive bending, twisting, and lifting; no lifting greater than 10 pounds
--- NOTE | 2019-04-15 05:29 | CDI ---
Documentation Clarification Form Date: 04/15/19 From: Ezekiel Barone Phone: If you have a question about this query, please contact Sylvie Echols, Dip Tube Assembler Machine at [phone] between 8am and 5pm. Admit Date: 04/07/19 Discharge Date: 04/13/19 Patient Name: christina Stewart Visit Number: [id number] ATTENTION: The Clinical Documentation Specialists (CDI) and [facility] Coding Staff appreciate your assistance in clarifying documentation. Please respond to the clarification below the line at the bottom and electronically sign. The CDI & [facility] Coding staff will review the response and follow-up if needed. Please note: Queries are made part of the Legal Health Record. If you have any questions, please contact the author of this message via ITS. Dear Dr Bakari Madrigal, Patient has been diagnosed with a Compression fracture of T7 vertebra. History/Risk Factors: Metastatic breast cancer with metastasis to spine, small and large bowel, and liver X-Ray Results:" New compression fracture involving the T7 vertebral segment with minimal bony retropulsion. Treatment: Her fentanyl patch was increased and she was continued on IV Dilaudid.Overnight on 04/06 her opiate requirements increased, Kyphoplasty was performed by Dr. Lal 04/11. T7 acute compression fracture, pathologic due to presumptive osteoporosis. PATH report showing "T7 VERTEBRAL BONE, BIOPSY: Benign bone with features consistent with a fracture,The immunostains show no evidence of metastatic malignancy". In DS note stated as "Acute pathologic T7 compression fracture secondary to osteoporosis". In your professional opinion, T7 compression fracture secondary due to ? Pathological (specify cause): Neoplastic disease Osteoporosis Other (please specify): Unable to determine ___Please refer to discharge summary MTDD
[2019-04-16] MEDS ORDERED: CAPECITABINE PO SCH ×2 (09:00→21:00)
--- NOTE | 2019-05-03 04:32 | CDI ---
Documentation Clarification Form Date: 05/03/19 From: Ezekiel Barone Phone: If you have a question about this query, please contact Sylvie Echols, Scrap Yard Worker at [phone] between 8am and 5pm. Admit Date: 04/07/19 Discharge Date: 04/13/19 Patient Name: Darlyn Stewart Visit Number: [id number] ATTENTION: The Clinical Documentation Specialists (CDI) and [facility] Coding Staff appreciate your assistance in clarifying documentation. Please respond to the clarification below the line at the bottom and electronically sign. The CDI & [facility] Coding staff will review the response and follow-up if needed. Please note: Queries are made part of the Legal Health Record. If you have any questions, please contact the author of this message via ITS. Dear Jimmy Raymond, Patient admitted with Intractable back pain secondary to acute T7 fracture secondary to osteoporosis. History/Risk Factors:Metastatic breast cancer with metastases the large bowel and liver and spine, protein calorie malnutrition, SIADH, Hydronephrosis, subclinical hypothyroidism. Clinical Indicators: ill appearing, moderate distress due to pain, appears at stated age, cachetic with temporal wasting Labs: Current BMI: 18.8 Insufficient energy intake: Weight Loss: reports weight loss (Stabilized since Surgery) Lab monitoring:Albumin 3.3L In your professional opinion, can you please clarify if these findings signify one of the following conditions? Mild Protein-Calorie Malnutrition Moderate Protein-Calorie Malnutrition Severe Protein-Calorie Malnutrition Malnutrition, unspecified Other condition, please specify Unable to determine Mild Protein calorie malnutrition MTDD
== END 2019-04-13 11:39 | disposition home health service (06) | DRG 478 ==
LOC: EC 13:58 → 4MS4W 16:36 → OBSVTOIN 04-07 11:51
PROVIDERS: ADMIT Internal Medicine; ATTEND Internal Medicine
PROC: 0PB43ZX Excision of Thoracic Vertebra, Percutaneous Approach, Diagnostic (ICD-10-PCS; principal; 2019-04-11 09:20)
PROC: 0PU43JZ Supplement Thoracic Vertebra with Synthetic Substitute, Percutaneous Approach (ICD-10-PCS; principal; 2019-04-11 09:20)
PROC: 0PS43ZZ Reposition Thoracic Vertebra, Percutaneous Approach (ICD-10-PCS; principal; 2019-04-11 09:20)
DX: M80.08XA Age-related osteoporosis with current pathological fracture, vertebra(e), initial encounter for fracture (principal); C78.5 Secondary malignant neoplasm of large intestine and rectum; C78.7 Secondary malignant neoplasm of liver and intrahepatic bile duct; R64 Cachexia; Z68.1 Body mass index [BMI] 19.9 or less, adult; C79.51 Secondary malignant neoplasm of bone; N13.30 Unspecified hydronephrosis; F11.20 Opioid dependence, uncomplicated; C78.4 Secondary malignant neoplasm of small intestine; E44.1 Mild protein-calorie malnutrition; E03.9 Hypothyroidism, unspecified; D64.81 Anemia due to antineoplastic chemotherapy; C50.912 Malignant neoplasm of unspecified site of left female breast; Z51.5 Encounter for palliative care; Z66 Do not resuscitate; I70.8 Atherosclerosis of other arteries; F41.9 Anxiety disorder, unspecified; M79.81 Nontraumatic hematoma of soft tissue; T45.1X5A Adverse effect of antineoplastic and immunosuppressive drugs, initial encounter; G47.00 Insomnia, unspecified; D63.0 Anemia in neoplastic disease; K59.00 Constipation, unspecified; G89.3 Neoplasm related pain (acute) (chronic); Z98.890 Other specified postprocedural states; Z90.49 Acquired absence of other specified parts of digestive tract; Z90.710 Acquired absence of both cervix and uterus; Z80.9 Family history of malignant neoplasm, unspecified; Z86.39 Personal history of other endocrine, nutritional and metabolic disease; Z80.1 Family history of malignant neoplasm of trachea, bronchus and lung; Z98.42 Cataract extraction status, left eye; Z98.41 Cataract extraction status, right eye; Z95.828 Presence of other vascular implants and grafts; Z92.3 Personal history of irradiation; Z90.12 Acquired absence of left breast and nipple
CPT/HCPCS: 72020; 72128; 76770; 80048; 80053; 85025; 85027; 85610; 88307; 88311; 88341; 88342; 96374; 99285

== ENCOUNTER 2019-05-03 00:15 | Inpatient (IN) | payer MEDICARE, OTHER ==
[2019-05-03] MEDS ORDERED: OXYCODONE HCL 5 MG PO PRN (02:49)
[2019-05-03] MEDS ORDERED: SODIUM CHLORIDE 0.9% 1,000 ML IV SCH (03:00)
[2019-05-03 03:33] LABS: Anisocytosis Slight; Basophils # (A) 0.1 k/uL (0-0.2); Basophils % (A) 1 %; Eosinophils # (A) 0.3 k/uL (0-0.7); Eosinophils % (A) 6 %; HCT 34.7 % (34.0-46.0); HGB 11.1 gm/dL (11.4-16.0); Lymphocytes # (A) 1.5 k/uL (1.0-4.8); Lymphocytes % (A) 29 %; MCH 29.2 pg (25.0-35.0); MCHC 32.1 g/dL (31.0-37.0); MCV 91.2 fL (80.0-100.0); Mean Platelet Volume 6.2; Monocytes # (A) 0.4 k/uL (0-1.0); Monocytes % (A) 7 %; Neutrophils # (A) 2.8 k/uL (1.3-7.7); Neutrophils % (A) 55 %; Platelet Count 248 k/uL (150-450)
[2019-05-03] MEDS: HYDROmorphone 1 MG/ML 1 ML SYRINGE IVP PRN ×4 (03:46→22:05)
[2019-05-03 03:48] LABS: ALT 16 U/L (9-52); AST 19 U/L (14-36); African American GFR (CKD) >90 (>60 ml/min/1.73 sqM); Albumin 3.1 g/dL (3.5-5.0); Alkaline Phosphatase 59 U/L (38-126); Anion Gap 7 mmol/L; Blood Urea Nitrogen 8 mg/dL (7-17); Calcium 8.7 mg/dL (8.4-10.2); Carbon Dioxide 23 mmol/L (22-30); Chloride 104 mmol/L (98-107); Glucose 94 mg/dL (74-99); Non-African American GFR(CKD) >90 (>60 ml/min/1.73 sqM); Potassium 3.8 mmol/L (3.5-5.1); Sodium 134 mmol/L (137-145); Total Bilirubin 0.7 mg/dL (0.2-1.3); Total Protein 5.7 g/dL (6.3-8.2)
[2019-05-03] MEDS: PANTOPRAZOLE 40 MG/10 ML VIAL IVP SCH ×2 (08:04→21:01)
[2019-05-03] MEDS: HEPARIN SODIUM,PORCINE 5,000 UNIT/ML 1 ML VIAL SQ SCH ×2 (08:04→21:01)
[2019-05-03] MEDS: ONDANSETRON 4 MG/2 ML VIAL IVP PRN ×3 (09:29→22:05)
--- NOTE | 2019-05-03 10:46 | XR ---
EXAMINATION TYPE: XR chest 1V DATE OF EXAM: 05/03/2019 COMPARISON: 01/20/2019 HISTORY: Pain TECHNIQUE: Single frontal view of the chest is obtained. FINDINGS: Evidence of previous vertebroplasty. Right-sided Mediport catheter noted. Elevated right h emidiaphragm with left-sided consolidation small effusion. Apical pleural thickening noted. Vascular stent on the left noted. Diffuse osteopenia. Subsegmental changes at the right lung base. IMPRESSION: 1. Bibasilar atelectasis versus infiltrate with tiny effusion.
[2019-05-03] MEDS ORDERED: POLYETHYLENE GLYCOL 3350 17 GM POWD.PACK PO PRN (11:26)
[2019-05-03 11:33] VITALS: BMI 18.2
[2019-05-03] MEDS: SENNOSIDES 8.6 MG TAB PO SCH ×2 (12:50→21:01)
--- NOTE | 2019-05-03 13:09 | P.HPIM ---
History of Present Illness 68-year-old pleasant female with known history of breast cancer metastatic peritoneal metastasis on oral chemotherapy came in with complaints of diffuse abdominal pain and predominant abdominal pain burning sensation in the epigastri c area severe. Patient last bowel movement was on Thursday. Patient denied any fever chills patient was having some nausea vomiting as well. Nausea improved patient is presently nothing by mouth. Abdominal CAT scan was obtained which showed right-sided hydronephrosis which appears to be old and patient had a J- tube placed in the past which was subsequently removed. Her abdominal pain is not consistent with pyelonephritis. Patient denied any dysuria. Patient had multiple abdominal surgeries in the past and the patient had partial small bowel obstruction bowel obstruction multiple times in the past. Patient is on fentanyl patch for pain. Presently on the same medication along with the h ydromorphone for pain patient is less nauseous will start her on clear liquid diet Surgery Was Consulted. Review of Systems REVIEW OF SYSTEMS: CONSTITUTIONAL: No fever, no malaise, no fatigue. HEENT: No recent visual problems or hearing problems. Denied any sore throat. CARDIOVASCULAR: No chest pain, orthopnea, PND, no palpitations, no syncope. PULMONARY: No shortness of breath, no cough, no hemoptysis. GASTROINTESTINAL: As mentioned in HPI NEUROLOGICAL: No headaches, no weakness, no numbness. HEMATOLOGICAL: Denies any bleeding or petechiae. GENITOURINARY: Denies any burning micturition, frequency, or urgency. MUSCULOSKELETAL/RHEUMATOLOGICAL: Denies any joint pain, swelling, or any muscle pain. ENDOCRINE: Denies any polyuria or polydipsia. The rest of the 14-point review of systems is negative. Past Medical History Past Medical History: Cancer Additional Past Medical History / Comment(s): Metastatic lt breast cancer with metastases to peritoneal area. SIADH, Hydronephrosis, subclinical hypothyrodisim, protein calorie malnutrition,carpel tunnel right hand with sx. bilateral cataracts with sx History of Any Multi-Drug Resistant Organisms: None Reported Past Surgical History: Appendectomy, Cholecystectomy, Hysterectomy Additional Past Surgical History / Comment(s): Lumpectomy involving the left breast, previous history of abdominal surgery for small bowel obstruction x2, right uretheral stent with removal, removal was: 6-8 weeks ago, left subclavian stent secondary to stenosis Past Anesthesia/Blood Transfusion Reactions: No Reported Reaction Past Psychological History: Anxiety Smoking Status: Never smoker Past Alcohol Use History: None Reported Past Drug Use History: None Reported - Past Family History Father Family Medical History: Cancer Additional Family Medical History / Comment(s): lung cancer Mother Family Medical History: Cancer Additional Family Medical History / Comment(s): lung cancer Medications and Allergies Home Medications Medication Instructions Recorded Confirmed Type ALPRAZolam [Xanax] 0.5 mg PO TID PRN 01/02/19 05/03/19 History Zolpidem Tartrate [Ambien Cr] 12.5 mg PO HS #3 tab 01/27/19 05/03/19 Rx Capecitabine [Xeloda] 500 - 1,000 mg PO DIRECTED 04/06/19 05/03/19 History Polyethylene Glycol 3350 [Miralax] 17 gm PO BID 04/06/19 05/03/19 History fentaNYL 50MCG/HR PATCH [Duragesic 1 patch TRANSDERM Q72H #2 patch 04/13/19 05/03/19 Rx 50MCG/HR] Mirabegron [Myrbetriq] 50 mg PO DAILY 05/03/19 05/03/19 History Allergies Allergy/AdvReac Type Severity Reaction Status Date / Time No Known Allergies Allergy Verified 05/03/19 08:10 Physical Exam Vitals: Vital Signs Temp Pulse Resp BP Pulse Ox 05/03/19 05:15 98.2 F 67 16 96/59 93 L 05/03/19 01:53 96.4 F L 69 16 132/63 95 Intake and Output 05/02/19 05/03/19 05/03/19 22:59 06:59 14:59 Intake Total 150 Balance 150 Intake: Intake, IV Titration 150 Amount Sodium Chloride 0.9% 1, 150 000 ml @ 75 mls/hr IV . [id number] [facility] Rx#:[id number] Other: # Voids 2 Weight 46.8 kg 46.8 kg PHYSICAL EXAMINATION: GENERAL: The patient is alert and oriented x3, not in any acute distress. Well developed, well nourished. HEENT: Pupils are round and equally reacting to light. EOMI. No scleral icterus. No conjunctival pallor. Normocephalic, atraumatic. No pharyngeal erythema. No thyromegaly. CARDIOVASCULAR: S1 and S2 present. No murmurs, rubs, or gallops. PULMONARY: Chest is clear to auscultation, no wheezing or crackles. ABDOMEN: Soft, nontender, sluggish bowel sounds MUSCULOSKELETAL: No joint swelling or deformity. EXTREMITIES: No cyanosis, clubbing, or pedal edema. NEUROLOGICAL: Gross neurological examination did not reveal any focal deficits. SKIN: No rashes. Results CBC & Chem 7: 05/03/19 03:23 05/03/19 03:23 Labs: Abnormal Lab Results - Last 24 Hours (Table) 05/03/19 05/03/19 Range/Units 03:23 03:23 Hgb 11.1 L (11.4-16.0) gm/dL RDW 17.0 H (11.5-15.5) % Sodium 134 L (137-145) mmol/L Creatinine 0.44 L (0.52-1.04) mg/dL Total Protein 5.7 L (6.3-8.2) g/dL Albumin 3.1 L (3.5-5.0) g/dL Thrombosis Risk Factor Assmnt - Choose All That Apply Each Risk Factor Represents 2 Points: Malignancy Each Risk Factor Represents 3 Points: History of DVT/PE Other congenital or acquired thrombophilia - If yes, enter type in comment: No Thrombosis Risk Factor Assessment Total Risk Factor Score: 5 Thrombosis Risk Factor Assessment Level: High Risk Assessment and Plan Plan: epigastric abdominal pain and burning sensation probably secondary to peptic ulcer disease or gastritis, continue with Protonix -Possible partial small bowel obstruction secondary to constipation Will use her 9 MiraLAX for that patient was started on diet will see if she can tolerate diet if she cannot really make her nothing by mouth. General surgery was consulted. -Metastatic breast cancer continue her chemo regimen 1 mild hyponatremia hypovolemic: IV fluids will continue -Bilateral atelectasis incentive spirometry is no clinical evidence of pneumonia -DVT prophylaxis early ambulation
[2019-05-03] MEDS: SODIUM CHLORIDE 0.9% 1,000 ML IV SCH (14:15)
[2019-05-03] MEDS: XELODA 500 MG PO SCH ×2 (14:20→20:59)
[2019-05-03] MEDS: ZOLPIDEM 5 MG TAB PO SCH (21:01)
[2019-05-04] MEDS: SODIUM CHLORIDE 0.9% 1,000 ML IV SCH ×3 (00:05→19:58)
[2019-05-04] MEDS: HYDROmorphone 1 MG/ML 1 ML SYRINGE IVP PRN ×4 (04:08→23:13)
[2019-05-04] MEDS: PANTOPRAZOLE 40 MG/10 ML VIAL IVP SCH ×2 (08:21→21:20)
[2019-05-04] MEDS: HEPARIN SODIUM,PORCINE 5,000 UNIT/ML 1 ML VIAL SQ SCH ×2 (08:22→21:20)
[2019-05-04] MEDS: SENNOSIDES 8.6 MG TAB PO SCH ×2 (08:22→21:20)
[2019-05-04] MEDS: ONDANSETRON 4 MG/2 ML VIAL IVP PRN ×3 (08:22→23:13)
[2019-05-04] MEDS: MYRBETRIQ (Mirabegron) 50 MG PO SCH (08:28)
--- NOTE | 2019-05-04 12:06 | P.GSCN ---
History of Present Illness Consult date: 05/04/19 History of present illness: CHIEF COMPLAINT: Abdominal pain HISTORY OF PRESENT ILLNESS: The patient is a 68 year old female with history of metastatic breast cancer into the abdomen who had a small bowel resection due to obstruction 4 months ago, 01/12/2019. She had poor appetite in the past however she has been able to gain weight. She is currently undergoing chemotherapy. She is on chronic pain meds. She reports at home, she had diffuse and acute onset abdominal pain less than 2 days ago. No abdominal distention. She has been passing flatus. She went to her local hospital secondary to acute onset generalized abdominal pain where she was diagnosed with possible ileus and then was transferred to [facility]. Since admission, her abdominal pain has improved. She is passing flatus. She is having bowel movements. She is tolerating clear liquid diet. General surgery is consulted for assessment of bowel obstruction. PAST MEDICAL HISTORY: See list. PAST SURGICAL HISTORY: See list. MEDICATIONS: See list. ALLERGIES: See list. SOCIAL HISTORY: See list. FAMILY HISTORY: See list. REVIEW OF ORGAN SYSTEMS: CONSTITUTIONAL: No fevers or chills. Has recent weight gain. EYES: Denies any trouble with vision. No glasses. HEENT: No difficulties with hearing. No nosebleeds. No difficulty swallowing. RESPIRATORY: Denies pneumonia. Denies any troubles with breathing or dyspnea on exertion. CARDIOVASCULAR: Denies any chest pain, palpitations, or recent heart attacks. GASTROINTESTINAL: Denies fatty food intolerance. History of chronic constipation. GENITOURINARY: Denies any blood in urine or increased urinary frequency. Has hydronephrosis secondary to cancer NEUROLOGICAL: Denies any numbness or tingling along the distal extremities. No seizure disorders or headaches. MUSCULOSKELETAL: Has back pain, stiffness or joint arthritis. SKIN: No current skin cancer. No rash. PSYCHIATRIC: Has depression. ENDOCRINE: Has thyroid disorders. Denies any blood sugar glucose intolerance. Has SIADH HEME/LYMPHATIC: Denies any lumps and bumps around the neck. No recent deep venous thrombosis. ALLERGY/IMMUNOLOGY: No immunoglobulin therapy. No immune deficiencies. BREAST: Has metastatic breast cancer PHYSICAL EXAM: VITALS: Reviewed CONSTITUTIONAL: Well developed and in no acute distress. EYES: Conjuctivae without sclera icterus. Pupils are equally round and reactive to light. Extraocular movements grossly intact. HEAD, EARS, NOSE, THROAT: Moist buccal mucosa. Head is atraumatic, normocephalic. Hears conversational speech. No nasal drainage. NECK: Supple. No JV distention. No thyroidomegaly. RESPIRATORY: Non-labored respirations and equal bilateral excursions. No gross wheezes. CARDIOVASCULAR: Regular rate and rhythm. Extremities without moderate edema. Palpable 2+ radial pulses. ABDOMEN: Soft. Nondistended. No peritonitis. MUSCULOSKELETAL: Nail and fingers with good capillary refill. SKIN: Warm and well perfused with good skin turgor. NEUROLOGIC: Cranial nerves I through XII grossly intact. Sensation upper and extremities intact. No focal or lateralizing signs. PSYCH: Appropriate affect. Alert and oriented to person, place and time. Displays appropriate insight. CLINCAL LABS: Reviewed. Sodium level low. WBC normal IMAGING: Independently reviewed chest x-ray without free air or obstructive bowel gas pattern RECORDS: previous old records reviewed with chronic small bowel obstructions from prior adhesive band disease and surgery 01/12/2019 ASSESSMENT: 1. Ileus 2. Active chemotherapy for metastatic breast cancer PLAN: 1. Clinically she still well and recommend correct sodium levels. 2. No surgical intervention needed for ileus which is resolving. 3. Diet as tolerated Thank you for this kind consultation. Past Medical History Past Medical History: Cancer Additional Past Medical History / Comment(s): Metastatic lt breast cancer with metastases to peritoneal area. SIADH, Hydronephrosis, subclinical hypothyrodisim, protein calorie malnutrition,carpel tunnel right hand with sx. bilateral cataracts with sx History of Any Multi-Drug Resistant Organisms: None Reported Past Surgical History: Appendectomy, Cholecystectomy, Hysterectomy Additional Past Surgical History / Comment(s): Lumpectomy involving the left breast, previous history of abdominal surgery for small bowel obstruction x2, right uretheral stent with removal, removal was: 6-8 weeks ago, left subclavian stent secondary to stenosis Past Anesthesia/Blood Transfusion Reactions: No Reported Reaction Past Psychological History: Anxiety Smoking Status: Never smoker Past Alcohol Use History: None Reported Past Drug Use History: None Reported - Past Family History Father Family Medical History: Cancer Additional Family Medical History / Comment(s): lung cancer Mother Family Medical History: Cancer Additional Family Medical History / Comment(s): lung cancer Medications and Allergies Home Medications Medication Instructions Recorded Confirmed Type ALPRAZolam [Xanax] 0.5 mg PO TID PRN 01/02/19 05/03/19 History Zolpidem Tartrate [Ambien Cr] 12.5 mg PO HS #3 tab 01/27/19 05/03/19 Rx Capecitabine [Xeloda] 500 - 1,000 mg PO DIRECTED 04/06/19 05/03/19 History Polyethylene Glycol 3350 [Miralax] 17 gm PO BID 04/06/19 05/03/19 History fentaNYL 50MCG/HR PATCH [Duragesic 1 patch TRANSDERM Q72H #2 patch 04/13/19 05/03/19 Rx 50MCG/HR] Mirabegron [Myrbetriq] 50 mg PO DAILY 05/03/19 05/03/19 History Allergies Allergy/AdvReac Type Severity Reaction Status Date / Time No Known Allergies Allergy Verified 05/03/19 08:10 Surgical - Exam Vital Signs Temp Pulse Resp BP Pulse Ox 96.4 F L 69 16 132/63 95 05/03/19 01:53 05/03/19 01:53 05/03/19 01:53 05/03/19 01:53 05/03/19 01:53 Results - Labs 05/03/19 03:23 05/03/19 03:23 Assessment and Plan (1) Metastatic breast cancer Current Visit: Yes Status: Chronic Priority: High Code(s): C50.919 - MALIGNANT NEOPLASM OF UNSP SITE OF UNSPECIFIED FEMALE BREAST SNOMED Code(s): 001900744 (2) Cancer related pain Current Visit: No Status: Acute Priority: High Code(s): G89.3 - NEOPLASM RELATED PAIN (ACUTE) (CHRONIC) SNOMED Code(s): 65154278485596 (3) Abdominal pain Current Visit: No Status: Chronic Priority: High Code(s): R10.9 - UNSPECIFIED ABDOMINAL PAIN SNOMED Code(s): 97198191 (4) Ileus Current Visit: No Status: Chronic Priority: High Code(s): K56.7 - ILEUS, UNSPECIFIED SNOMED Code(s): 604922868
[2019-05-04] MEDS: XELODA 500 MG PO SCH ×2 (13:47→23:14)
--- NOTE | 2019-05-04 14:21 | P.PN ---
Subjective Progress Note Date: 05/04/19 Principal diagnosis: 68-year-old pleasant female with known history of breast cancer metastatic peritoneal metastasis on oral chemotherapy came in with complaints of diffuse abdominal pain and predominant abdominal pain burning sensation in the epigastric area severe. Patient last bowel movement was on Thursday. Patient denied any fever chills patient was having some nausea vomiting as well. Nausea improved patient is presently nothing by mouth. Abdominal CAT scan was obtained which showed right-sided hydronephrosis which appears to be old and patient had a J-tube placed in the past which was subsequently removed. Her abdominal pain is not consistent with pyelonephritis. Patient denied any dysuria. Patient had multiple abdominal surgeries in the past and the patient had partial small bowel obstruction bowel obstruction multiple times in the past. Patient is on f entanyl patch for pain. Presently on the same medication along with the hydromorphone for pain patient is less nauseous will start her on clear liquid diet. Surgery Was Consulted. 05/04/2019 Patient is sitting up in bed in no acute distress. Patient has not had a bowel movement since Thursday and continues to have some abdominal discomfort. Patient is being given MiraLAX. This morning patient is having some nausea and vomiting and has Zofran ordered. Patient is to maintain on a clear liquid diet with small sips at this time. Surgery is following. REVIEW OF SYSTEMS: CONSTITUTIONAL: No fever, no malaise, no fatigue. HEENT: No recent visual problems or hearing problems. Denied any sore throat. CARDIOVASCULAR: No chest pain, orthopnea, PND, no palpitations, no syncope. PULMONARY: No shortness of breath, no cough, no hemoptysis. GASTROINTESTINAL: Reports of nausea, vomiting, abdominal pain NEUROLOGICAL: No headaches, no weakness, no numbness. HEMATOLOGICAL: Denies any bleeding or petechiae. GENITOURINARY: Denies any burning micturition, frequency, or urgency. MUSCULOSKELETAL/RHEUMATOLOGICAL: Denies any joint pain, swelling, or any muscle pain. ENDOCRINE: Denies any polyuria or polydipsia. The rest of the 14-point review of systems is negative. Objective - Vital Signs Vital signs: Vital Signs Temp 98.3 F 05/04/19 12:40 Pulse 60 05/04/19 12:40 Resp 16 05/04/19 12:40 BP 123/71 05/04/19 12:40 Pulse Ox 97 05/04/19 12:40 Intake & Output 05/03/19 05/04/19 05/04/19 18:59 06:59 18:59 Intake Total 1500 540 Balance 1500 540 Weight 46.8 kg Intake: Oral 1500 540 Other: Voiding Method Toilet Toilet Toilet # Voids 3 1 - Exam GENERAL: The patient is alert and oriented x3, not in any acute distress. Well developed, well nourished. HEENT: Pupils are round and equally reacting to light. EOMI. No scleral icterus. No conjunctival pallor. Normocephalic, atraumatic. No pharyngeal erythema. No thyromegaly. CARDIOVASCULAR: S1 and S2 present. No murmurs, rubs, or gallops. PULMONARY: Chest is clear to auscultation, no wheezing or crackles. ABDOMEN: Soft, mild tenderness noted on palpation of the lower abdomen, sluggish bowel sounds MUSCULOSKELETAL: No joint swelling or deformity. EXTREMITIES: No cyanosis, clubbing, or pedal edema. NEUROLOGICAL: Gross neurological examination did not reveal any focal deficits. SKIN: No rashes. - Labs CBC & Chem 7: 05/03/19 03:23 05/03/19 03:23 Assessment and Plan Assessment: -epigastric abdominal pain and burning sensation probably secondary to peptic ulcer disease or gastritis, continue with Protonix -Possible partial small bowel obstruction secondary to constipation Will use her MiraLAX for that. patient was started on diet will see if she can tolerate diet if she cannot really make her nothing by mouth. General surgery was consulted. Patient is having some nausea and vomiting and will continue with clear liquids and ice chips as tolerated. No reports of bowel movements at this time, the patient states she is passing gas -Metastatic breast cancer continue her chemo regimen -mild hyponatremia hypovolemic: IV fluids will continue -Bilateral atelectasis incentive spirometry as there is no clinical evidence of pneumonia -DVT prophylaxis early ambulation
--- NOTE | 2019-05-04 14:53 | P.PN ---
<MegTeresita A - Last Filed: 05/04/19 15:41> Subjective Progress Note Date: 05/04/19 CHIEF COMPLAINT: abdominal pain HISTORY OF PRESENT ILLNESS: Patient examined at the bedside. She denies abdominal pain. She reports nausea. She had one episode of vomiting this morning. She is passing flatus. Last BM was Thursday per patient. PHYSICAL EXAM: VITAL SIGNS: Reviewed GENERAL: Well-developed in no acute distress. HEENT: No sclera icterus. Extraocular movements grossly intact. Moist buccal mucosa. Head is atraumatic, normocephalic. Hears conversational speech. No nasal drainage. NECK: Supple without lymphadenopathy. CHEST: Non-labored respirations and equal bilateral excursions. CARDIOVASCULAR: Regular rate with regular rhythm. Palpable 2+ radial pulses. ABDOMEN: Soft. Nondistended. Nontender. MUSCULOSKELETAL: No clubbing, cyanosis or edema. NEUROLOGIC: No focal or lateralizing signs. Cranial nerves II through XII grossly intact. PSYCH: Appropriate affect. Alert and oriented to person, place and time. SKIN: Well perfused. Good skin turgor. ASSESSMENT: 1. Ileus 2. Active chemotherapy for metastatic breast cancer 3. Small bowel resection due to obstruction, 01/12/2019 4. Mild protein calorie malnutrition PLAN: Ice chips and popsicles for now. May have clear liquids if nausea improves Obtain abdominal xray. Await results Nurse practitioner note has been reviewed by physician. Signing provider agrees with the documented findings, assessment, and plan of care. Objective - Vital Signs Vital signs: Vital Signs Temp 98.3 F 05/04/19 12:40 Pulse 60 05/04/19 12:40 Resp 16 05/04/19 12:40 BP 123/71 05/04/19 12:40 Pulse Ox 97 05/04/19 12:40 Intake & Output 05/03/19 05/04/19 05/04/19 18:59 06:59 18:59 Intake Total 1500 540 Balance 1500 540 Weight 46.8 kg Intake: Oral 1500 540 Other: Voiding Method Toilet Toilet Toilet # Voids 3 1 - Labs CBC & Chem 7: 05/03/19 03:23 05/03/19 03:23 <Salma Downey - Last Filed: 05/04/19 17:58> Subjective Abdominal xray reviewed with her showing no bowel obstruction. Stool along cecum, rest of colon clear of stool. She does report passing flatus and epigastric pain. She has no appetite and expected with chemo. No surgical intervention. Objective - Vital Signs Vital signs: Vital Signs Temp 98.3 F 05/04/19 12:40 Pulse 60 05/04/19 12:40 Resp 16 05/04/19 12:40 BP 123/71 05/04/19 12:40 Pulse Ox 97 05/04/19 12:40 Intake & Output 05/03/19 05/04/19 05/04/19 18:59 06:59 18:59 Intake Total 1500 540 Balance 1500 540 Weight 46.8 kg Intake: Oral 1500 540 Other: Voiding Method Toilet Toilet Toilet # Voids 3 1 - Labs CBC & Chem 7: 05/03/19 03:23 05/03/19 03:23 Assessment and Plan (1) Metastatic breast cancer Current Visit: Yes Status: Chronic Priority: High Code(s): C50.919 - MALIGNANT NEOPLASM OF UNSP SITE OF UNSPECIFIED FEMALE BREAST SNOMED Code(s): 739342333 (2) Cancer related pain Current Visit: No Status: Acute Priority: High Code(s): G89.3 - NEOPLASM RELATED PAIN (ACUTE) (CHRONIC) SNOMED Code(s): 48237508212765 (3) Abdominal pain Current Visit: No Status: Chronic Priority: High Code(s): R10.9 - UNSPECIFIED ABDOMINAL PAIN SNOMED Code(s): 12117443 (4) Ileus Current Visit: No Status: Chronic Priority: High Code(s): K56.7 - ILEUS, UNSPECIFIED SNOMED Code(s): 163939299
--- NOTE | 2019-05-04 15:15 | XR ---
EXAMINATION TYPE: XR abdomen 2V DATE OF EXAM: 05/04/2019 COMPARISON: 01/23/2019 HISTORY: Pain TECHNIQUE: One view abdominal series FINDINGS: The osseous structures are intact. The bowel gas pattern is nonspecific. Left lower lobe consolidati on noted. Curvature the spine with degenerative changes noted. Arthropathy of the hips. IMPRESSION: 1. Nonspecific abdomen. Air is seen throughout both large and small bowel loops in a nonspecific sai matteo. 2. Elevated left hemidiaphragm with Left lower lobe infiltrate or atelectasis.
[2019-05-04] MEDS: ZOLPIDEM 5 MG TAB PO SCH (21:21)
[2019-05-05] MEDS: ALPRAZolam 0.5 MG TAB PO PRN ×2 (02:21→22:17)
[2019-05-05] MEDS: SODIUM CHLORIDE 0.9% 1,000 ML IV SCH ×2 (04:47→14:33)
[2019-05-05] MEDS: HYDROmorphone 1 MG/ML 1 ML SYRINGE IVP PRN ×3 (08:22→20:22)
[2019-05-05] MEDS: SENNOSIDES 8.6 MG TAB PO SCH ×2 (08:26→20:22)
[2019-05-05] MEDS: PANTOPRAZOLE 40 MG/10 ML VIAL IVP SCH (08:26)
[2019-05-05] MEDS: XELODA 500 MG PO SCH ×2 (08:28→22:17)
[2019-05-05] MEDS: HEPARIN SODIUM,PORCINE 5,000 UNIT/ML 1 ML VIAL SQ SCH ×2 (08:29→20:17)
[2019-05-05] MEDS: MYRBETRIQ (Mirabegron) 50 MG PO SCH (08:30)
[2019-05-05] MEDS: ONDANSETRON 4 MG/2 ML VIAL IVP PRN ×3 (08:35→20:22)
[2019-05-05] MEDS ORDERED: MAGNESIUM HYDROXIDE 2,400 MG/10 ML CUP PO PRN (11:02)
[2019-05-05] MEDS ORDERED: BISACODYL 10 MG SUPP RECTAL PRN (11:21)
--- NOTE | 2019-05-05 11:28 | P.PN ---
<Teresita Weaver A - Last Filed: 05/05/19 11:25> Subjective Progress Note Date: 05/05/19 CHIEF COMPLAINT: abdominal pain HISTORY OF PRESENT ILLNESS: Patient examined at the bedside. She denies abdominal pain. She reports nausea. No vomiting. Tolerating clear liquids. Requesting to have diet advanced. Patient takes Miralax at home and has not been receiving while here in the hospital. PHYSICAL EXAM: VITAL SIGNS: Reviewed GENERAL: Well-developed in no acute distress. HEENT: No sclera icterus. Extraocular movements grossly intact. Moist buccal mucosa. Head is atraumatic, normocephalic. Hears conversational speech. No nasal drainage. NECK: Supple without lymphadenopathy. CHEST: Non-labored respirations and equal bilateral excursions. CARDIOVASCULAR: Regular rate with regular rhythm. Palpable 2+ radial pulses. ABDOMEN: Soft. Nondistended. Nontender. MUSCULOSKELETAL: No clubbing, cyanosis or edema. NEUROLOGIC: No focal or lateralizing signs. Cranial nerves II through XII grossly intact. PSYCH: Appropriate affect. Alert and oriented to person, place and time. SKIN: Well perfused. Good skin turgor. ASSESSMENT: 1. Ileus 2. Active chemotherapy for metastatic breast cancer 3. Small bowel resection due to obstruction, 01/12/2019 4. Mild protein calorie malnutrition PLAN: Advance diet Continue bowel regimen. Miralax scheduled daily as patient takes daily at home. Add Lactulose BID and MOM x 1. No suppositories or enemas needed as patient does not have fecal impaction. May be discharged from surgical standpoint when tolerating diet Nurse practitioner note has been reviewed by physician. Signing provider agrees with the documented findings, assessment, and plan of care. Objective - Vital Signs Vital signs: Vital Signs Temp 97.5 F L 05/05/19 05:04 Pulse 65 05/05/19 05:04 Resp 16 05/05/19 05:04 BP 107/67 05/05/19 05:04 Pulse Ox 94 L 05/05/19 05:04 Intake & Output 05/04/19 05/05/19 05/05/19 18:59 06:59 18:59 Intake Total 1850 900 480 Balance 1850 900 480 Intake: Intake, IV Titration 1200 900 Amount Sodium Chloride 0.9% 1, 1200 900 000 ml @ 100 mls/hr IV . Q10H [facility] Rx#:[id number] Oral 650 480 Other: Voiding Method Toilet Toilet # Voids 3 1 - Labs CBC & Chem 7: 05/03/19 03:23 05/03/19 03:23 <Salma Downey N - Last Filed: 05/07/19 11:53> Subjective As above. Patient has history of chronic constipation. We will start remedies for constipation. Objective - Vital Signs Vital signs: Vital Signs Temp 98.2 F 05/07/19 04:35 Pulse 71 05/07/19 04:35 Resp 18 05/07/19 04:35 BP 97/63 05/07/19 04:35 Pulse Ox 96 05/07/19 04:35 Intake & Output 05/06/19 05/07/19 05/07/19 18:59 06:59 18:59 Intake Total 800 1100 Balance 800 1100 Intake: Intake, IV Titration 800 900 Amount Sodium Chloride 0.9% 1, 800 900 000 ml @ 100 mls/hr IV . Q10H [facility] Rx#:[id number] Oral 200 Other: Voiding Method Toilet Toilet # Voids 1 1 - Labs CBC & Chem 7: 05/07/19 07:12 05/07/19 07:12 Labs: Abnormal Lab Results - Last 24 Hours (Table) 05/07/19 05/07/19 Range/Units 07:12 07:12 RBC 3.34 L (3.80-5.40) m/uL Hgb 10.1 L (11.4-16.0) gm/dL Hct 30.6 L (34.0-46.0) % RDW 17.4 H (11.5-15.5) % Sodium 136 L (137-145) mmol/L Potassium 3.1 L (3.5-5.1) mmol/L BUN 6 L (7-17) mg/dL Calcium 8.0 L (8.4-10.2) mg/dL AST 12 L (14-36) U/L Total Protein 4.9 L (6.3-8.2) g/dL Albumin 2.4 L (3.5-5.0) g/dL Assessment and Plan (1) Metastatic breast cancer Current Visit: Yes Status: Chronic Priority: High Code(s): C50.919 - MALIGNANT NEOPLASM OF UNSP SITE OF UNSPECIFIED FEMALE BREAST SNOMED Code(s): 959801138 (2) Cancer related pain Current Visit: No Status: Acute Priority: High Code(s): G89.3 - NEOPLASM RELATED PAIN (ACUTE) (CHRONIC) SNOMED Code(s): 59366024652109 (3) Abdominal pain Current Visit: Yes Status: Chronic Priority: High Code(s): R10.9 - UNSPECIFIED ABDOMINAL PAIN SNOMED Code(s): 76274985 (4) Ileus Current Visit: No Status: Chronic Priority: High Code(s): K56.7 - ILEUS, UNSPECIFIED SNOMED Code(s): 314182469
--- NOTE | 2019-05-05 14:09 | P.PN ---
Subjective Progress Note Date: 05/05/19 Principal diagnosis: 68-year-old pleasant female with known history of breast cancer metastatic peritoneal metastasis on oral chemotherapy came in with complaints of diffuse abdominal pain and predominant abdominal pain burning sensation in the epigastric area severe. Patient last bowel movement was on Thursday. Patient denied any fever chills patient was having some nausea vomiting as well. Nausea improved patient is presently nothing by mouth. Abdominal CAT scan was obtained which showed right-sided hydronephrosis which appears to be old and patient had a J-tube placed in the past which was subsequently removed. Her abdominal pain is not consistent with pyelonephritis. Patient denied any dysuria. Patient had multiple abdominal surgeries in the past and the patient had partial small bowel obstruction bowel obstruction multiple times in the past. Patient is on f entanyl patch for pain. Presently on the same medication along with the hydromorphone for pain patient is less nauseous will start her on clear liquid diet. Surgery Was Consulted. 05/04/2019 Patient is sitting up in bed in no acute distress. Patient has not had a bowel movement since Thursday and continues to have some abdominal discomfort. Patient is being given MiraLAX. This morning patient is having some nausea and vomiting and has Zofran ordered. Patient is to maintain on a clear liquid diet with small sips at this time. Surgery is following. 05/05/2019 Patient is sitting up in bed in no acute distress. No acute overnight issues. Patient is having some nausea but is tolerating a clear liquid diet. Patient would like to advance her diet. Patient had a small loose bowel movement today. MiraLAX was ordered as scheduled instead of when necessary as she has not been receiving it for the last 2 days. Milk of magnesia along with lactulose has been ordered as well. Discussed with the patient about the need for a possible enema or suppository and she states she will try the lactulose at this time. Surgery is following. No surgical interventions at this time. Objective - Vital Signs Vital signs: Vital Signs Temp 96.8 F L 05/05/19 11:39 Pulse 62 05/05/19 11:39 Resp 17 05/05/19 11:39 BP 118/56 05/05/19 11:39 Pulse Ox 99 05/05/19 11:39 Intake & Output 05/04/19 05/05/19 05/05/19 18:59 06:59 18:59 Intake Total 1850 900 480 Balance 1850 900 480 Weight 46.8 kg Intake: Intake, IV Titration 1200 900 Amount Sodium Chloride 0.9% 1, 1200 900 000 ml @ 100 mls/hr IV . Q10H [facility] Rx#:[id number] Oral 650 480 Other: Voiding Method Toilet Toilet # Voids 3 1 - Exam GENERAL: The patient is alert and oriented x3, not in any acute distress. Well developed, well nourished. HEENT: Pupils are round and equally reacting to light. EOMI. No scleral icterus. No conjunctival pallor. Normocephalic, atraumatic. No pharyngeal erythema. No thyromegaly. CARDIOVASCULAR: S1 and S2 present. No murmurs, rubs, or gallops. PULMONARY: Chest is clear to auscultation, no wheezing or crackles. ABDOMEN: Soft, mild tenderness noted on palpation of the lower abdomen, hypoactive bowel sounds MUSCULOSKELETAL: No joint swelling or deformity. EXTREMITIES: No cyanosis, clubbing, or pedal edema. NEUROLOGICAL: Gross neurological examination did not reveal any focal deficits. SKIN: No rashes. - Labs CBC & Chem 7: 05/03/19 03:23 12 03:23 Assessment and Plan Assessment: -epigastric abdominal pain and burning sensation probably secondary to peptic ulcer disease or gastritis, continue with Protonix -Possible partial small bowel obstruction secondary to constipation Will use her MiraLAX for that. patient was started on diet will see if she can tolerate diet if she cannot really make her nothing by mouth. General surgery was consulted. Patient is having some nausea again today with some abdominal discomfort. Patient states that she did have a small loose bowel movement earlier this morning. Lactulose and milk of magnesia have been ordered along with suppository and enema the patient states that she wants to try the oral medications first. -Metastatic breast cancer continue her chemo regimen -mild hyponatremia hypovolemic: IV fluids will continue -Bilateral atelectasis incentive spirometry as there is no clinical evidence of pneumonia -DVT prophylaxis early ambulation
[2019-05-05] MEDS: LACTULOSE 20 GM/30 ML CUP PO SCH ×2 (14:25→20:23)
[2019-05-05] MEDS: POLYETHYLENE GLYCOL 3350 17 GM POWD.PACK PO SCH (14:26)
[2019-05-05] MEDS: PANTOPRAZOLE 40 MG TABLET PO SCH (20:22)
[2019-05-05] MEDS: ZOLPIDEM 5 MG TAB PO SCH (22:17)
[2019-05-06] MEDS: SODIUM CHLORIDE 0.9% 1,000 ML IV SCH ×3 (00:25→19:01)
[2019-05-06] MEDS: HYDROmorphone 1 MG/ML 1 ML SYRINGE IVP PRN ×6 (00:26→21:34)
[2019-05-06] MEDS: ONDANSETRON 4 MG/2 ML VIAL IVP PRN ×3 (02:00→18:54)
[2019-05-06] MEDS: HEPARIN SODIUM,PORCINE 5,000 UNIT/ML 1 ML VIAL SQ SCH ×2 (08:16→21:35)
[2019-05-06] MEDS: LACTULOSE 20 GM/30 ML CUP PO SCH (08:16)
[2019-05-06] MEDS: PANTOPRAZOLE 40 MG TABLET PO SCH ×2 (08:16→21:34)
[2019-05-06] MEDS: SENNOSIDES 8.6 MG TAB PO SCH ×2 (08:16→21:34)
[2019-05-06] MEDS: POLYETHYLENE GLYCOL 3350 17 GM POWD.PACK PO SCH (08:20)
[2019-05-06] MEDS: XELODA 500 MG PO SCH ×2 (08:22→21:35)
[2019-05-06] MEDS: MYRBETRIQ (Mirabegron) 50 MG PO SCH (08:33)
--- NOTE | 2019-05-06 13:07 | P.PN ---
<Teresita Weaver A - Last Filed: 05/06/19 13:05> Subjective Progress Note Date: 05/06/19 CHIEF COMPLAINT: abdominal pain HISTORY OF PRESENT ILLNESS: Patient examined at the bedside. She reports abdominal pain overnight with cramping. She did have a bowel movement. Denies nausea or vomiting. PHYSICAL EXAM: VITAL SIGNS: Reviewed GENERAL: Well-developed in no acute distress. HEENT: No sclera icterus. Extraocular movements grossly intact. Moist buccal m ucosa. Head is atraumatic, normocephalic. Hears conversational speech. No nasal drainage. NECK: Supple without lymphadenopathy. CHEST: Non-labored respirations and equal bilateral excursions. CARDIOVASCULAR: Regular rate with regular rhythm. Palpable 2+ radial pulses. ABDOMEN: Soft. Nondistended. Nontender. MUSCULOSKELETAL: No clubbing, cyanosis or edema. NEUROLOGIC: No focal or lateralizing signs. Cranial nerves II through XII grossly intact. PSYCH: Appropriate affect. Alert and oriented to person, place and time. SKIN: Well perfused. Good skin turgor. ASSESSMENT: 1. Ileus 2. Active chemotherapy for metastatic breast cancer 3. Small bowel resection due to obstruction, 01/12/2019 4. Mild protein calorie malnutrition PLAN: Continue diet as tolerated Continue bowel regimen. Miralax scheduled daily as patient takes daily at home. DC Lactulose Nurse practitioner note has been reviewed by physician. Signing provider agrees with the documented findings, assessment, and plan of care. Objective - Vital Signs Vital signs: Vital Signs Temp 97.4 F L 05/06/19 05:41 Pulse 76 05/06/19 08:00 Resp 17 05/06/19 08:00 BP 119/70 05/06/19 05:41 Pulse Ox 95 05/06/19 05:41 Intake & Output 05/05/19 05/06/19 05/06/19 18:59 06:59 18:59 Intake Total 2240 1190 Balance 2240 1190 Weight 46.8 kg Intake: Intake, IV Titration 800 900 Amount Sodium Chloride 0.9% 1, 800 900 000 ml @ 100 mls/hr IV . Q10H [facility] Rx#:[id number] Oral 1440 290 Other: Voiding Method Toilet Toilet Toilet # Voids 5 1 # Bowel Movements 2 - Labs CBC & Chem 7: 05/03/19 03:23 05/03/19 03:23 <ShayanSalma N - Last Filed: 05/07/19 11:53> Subjective As above. Patient currently under chemotherapy which increases risk for ileus including and has history of chronic pain. No surgical intervention. Adjust laxatives. Objective - Vital Signs Vital signs: Vital Signs Temp 98.2 F 05/07/19 04:35 Pulse 71 05/07/19 04:35 Resp 18 05/07/19 04:35 BP 97/63 05/07/19 04:35 Pulse Ox 96 05/07/19 04:35 Intake & Output 05/06/19 05/07/19 05/07/19 18:59 06:59 18:59 Intake Total 800 1100 Balance 800 1100 Intake: Intake, IV Titration 800 900 Amount Sodium Chloride 0.9% 1, 800 900 000 ml @ 100 mls/hr IV . Q10H [facility] Rx#:[id number] Oral 200 Other: Voiding Method Toilet Toilet # Voids 1 1 - Labs CBC & Chem 7: 05/07/19 07:12 05/07/19 07:12 Labs: Abnormal Lab Results - Last 24 Hours (Table) 05/07/19 05/07/19 Range/Units 07:12 07:12 RBC 3.34 L (3.80-5.40) m/uL Hgb 10.1 L (11.4-16.0) gm/dL Hct 30.6 L (34.0-46.0) % RDW 17.4 H (11.5-15.5) % Sodium 136 L (137-145) mmol/L Potassium 3.1 L (3.5-5.1) mmol/L BUN 6 L (7-17) mg/dL Calcium 8.0 L (8.4-10.2) mg/dL AST 12 L (14-36) U/L Total Protein 4.9 L (6.3-8.2) g/dL Albumin 2.4 L (3.5-5.0) g/dL Assessment and Plan (1) Metastatic breast cancer Current Visit: Yes Status: Chronic Priority: High Code(s): C50.919 - MALIGNANT NEOPLASM OF UNSP SITE OF UNSPECIFIED FEMALE BREAST SNOMED Code(s): 920934402 (2) Cancer related pain Current Visit: No Status: Acute Priority: High Code(s): G89.3 - NEOPLASM RELATED PAIN (ACUTE) (CHRONIC) SNOMED Code(s): 18431290291396 (3) Abdominal pain Current Visit: Yes Status: Chronic Priority: High Code(s): R10.9 - UNSPECIFIED ABDOMINAL PAIN SNOMED Code(s): 43754433 (4) Ileus Current Visit: No Status: Chronic Priority: High Code(s): K56.7 - ILEUS, UNSPECIFIED SNOMED Code(s): 876255802
--- NOTE | 2019-05-06 17:19 | P.CONS ---
<Adwoa Song - Last Filed: 05/06/19 16:49> History of Present Illness - Reason for Consult Consult date: 05/06/19 breast cancer. metastatic Requesting physician: Belkys Nunes - Chief Complaint abd pain, inability to eat - History of Present Illness Ms. Stewart is a very pleasant 68-year-old female patient with a past medical history of breast cancer of the left breast, diagnosed 2005, treated with lumpectomy, radiation, chemotherapy and anastrozole for 5 years. She developed recurrence in the left breast in July 2016, pathology consistent with metastatic disease. She was treated at the [facility]. She has had multiple treatments. She had admissions for bowel obst ruction off and on since early 2018. Late 08/17-early 09/17 she had omental biopsy confirming breast primary, ER positive, MO now negative, and HER-2/marcial negative. Admitted [facility] with regard bowel obstruction, which did not resolve with conservative measures. She therefore underwent surgery on 01/12/19 with at least 2 areas of obstruction of the small bowel obstruction due to omental metastasis. She had resection and end-to-end anastomosis with pathology confirming breast primary, ER positive, MO negative and HER-2/marcial negative. [facility] to [facility], seen for her first office visit here 02/24/19. CT AP did not show definite measurable disease, though surgeon's inspection revealed evidence of peritoneal deposits, CXR bilateral small pleural effusions and left lower lobe infiltrate, tumor markers on 01/08/19 showed normal CA 153, and 2729 elevated at 71.7. Since recurrence, the patient has been treated with anastrozole, Faslodex, Ibrance, Abraxane, and most currently she is on xeloda. She was admitted on 04/07/19 with intractable back pain. This was due to new compression fracture at T7. She underwent kyphoplasty with biopsy. Pathology was negative for tumor. Post discharge the patient did resume Xeloda, 1 week on 1 week off. She stated her most current cycle Thursday, has not taken last 2 days. Patient started having epigastric and right upper quadrant discomfort earlier this week, this was associated with constipation, she proceeded to lose her appetite, decreased oral intake, she became very weak and family finally brought her to the emergency department. Since admission she has been seen by surgery, conservative management, with lactulose, MiraLAX and enema patient has had 3 bowel movements, her CBC and CMP are within normal limits, she had a CT scan at [place] on Thursday. Review of Systems 14 point ROS is negative except as stated in HPI Past Medical History Past Medical History: Cancer Additional Past Medical History / Comment(s): Metastatic lt breast cancer with metastases to peritoneal area. SIADH, Hydronephrosis, subclinical hypothyrodisim, protein calorie malnutrition,carpel tunnel right hand with sx. bilateral cataracts with sx History of Any Multi-Drug Resistant Organisms: None Reported Past Surgical History: Appendectomy, Cholecystectomy, Hysterectomy Additional Past Surgical History / Comment(s): Lumpectomy involving the left breast, previous history of abdominal surgery for small bowel obstruction x2, right uretheral stent with removal, removal was: 6-8 weeks ago, left subclavian stent secondary to stenosis Past Anesthesia/Blood Transfusion Reactions: No Reported Reaction Past Psychological History: Anxiety Smoking Status: Never smoker Past Alcohol Use History: None Reported Past Drug Use History: None Reported - Past Family History Father Family Medical History: Cancer Additional Family Medical History / Comment(s): lung cancer Mother Family Medical History: Cancer Additional Family Medical History / Comment(s): lung cancer Medications and Allergies Home Medications Medication Instructions Recorded Confirmed Type ALPRAZolam [Xanax] 0.5 mg PO TID PRN 01/02/19 05/03/19 History Zolpidem Tartrate [Ambien Cr] 12.5 mg PO HS #3 tab 01/27/19 05/03/19 Rx Capecitabine [Xeloda] 500 - 1,000 mg PO DIRECTED 04/06/19 05/03/19 History Polyethylene Glycol 3350 [Miralax] 17 gm PO BID 04/06/19 05/03/19 History fentaNYL 50MCG/HR PATCH [Duragesic 1 patch TRANSDERM Q72H #2 patch 04/13/19 05/03/19 Rx 50MCG/HR] Mirabegron [Myrbetriq] 50 mg PO DAILY 05/03/19 05/03/19 History Allergies Allergy/AdvReac Type Severity Reaction Status Date / Time No Known Allergies Allergy Verified 05/03/19 08:10 Physical Exam Vitals: Vital Signs Temp Pulse Pulse Resp BP Pulse Ox 05/06/19 08:00 60 76 17 05/06/19 05:41 97.4 F L 76 17 119/70 95 05/05/19 20:28 97.1 F L 65 20 149/71 100 05/05/19 16:00 60 17 Intake and Output 05/05/19 05/06/19 05/06/19 22:59 06:59 14:59 Intake Total 290 900 Balance 290 900 Intake: Intake, IV Titration 900 Amount Sodium Chloride 0.9% 1, 900 000 ml @ 100 mls/hr IV . Q10H [facility] Rx#:[id number] Oral 290 Other: Voiding Method Toilet Toilet # Voids 1 1 # Bowel Movements 1 2 - Constitutional General appearance: cooperative, no acute distress, thin - EENT Eyes: anicteric sclerae, EOMI ENT: hearing grossly normal, normal oropharynx - Neck Neck: no lymphadenopathy - Respiratory Respiratory: bilateral: CTA - Cardiovascular Rhythm: regular Heart sounds: normal: S1, S2 Abnormal Heart Sounds: no systolic murmur, no diastolic murmur, no rub, no S3 Gallop, no S4 Gallop, no click, no other leg Peripheral Edema: bilateral: None - Gastrointestinal General gastrointestinal: no absent bowel sounds, no decreased bowel sounds, no distended, no hepatomegaly, no hyperactive bowel sounds, normal bowel sounds, no organomegaly, no rigid, no scaphoid, soft, no splenomegaly, tenderness, no umbilical hernia, no ventral hernia Localized gastrointestinal: tender: RUQ, epigastric periumbilical - Integumentary Integumentary: normal - Neurologic Neurologic: CNII-XII intact - Musculoskeletal Musculoskeletal: strength equal bilaterally - Psychiatric Psychiatric: A&O x's 3, appropriate affect, intact judgment & insight Results CBC & Chem 7: 05/03/19 03:23 05/03/19 03:23 Chest x-ray: report reviewed Abdominal x-ray: report reviewed Assessment and Plan (1) Abdominal pain Current Visit: Yes Status: Chronic Priority: High Code(s): R10.9 - UNSPECIFIED ABDOMINAL PAIN SNOMED Code(s): 49327731 (2) Metastatic breast cancer Current Visit: Yes Status: Chronic Priority: High Code(s): C50.919 - MALIGNANT NEOPLASM OF UNSP SITE OF UNSPECIFIED FEMALE BREAST SNOMED Code(s): 949662792 (3) S/P small bowel resection Current Visit: No Status: Chronic Priority: High Code(s): Z90.49 - ACQUIRED ABSENCE OF OTHER SPECIFIED PARTS OF DIGESTIVE TRACT SNOMED Code(s): 603676443099313 Plan: Abdominal symptoms, as above, are related to known metastatic disease, patient has had similar symptoms in the past. Surgery has seen pt and conservative mgmt planned for now. Interventions, thus far, have been successful. Pt states she had CT Thursday at [place] and we have the disc here. It has been sent to Radiology with a request to review and compare to most recent scans form here. Await report. Pt is wanting to know if her symptoms are because of progressive disease. I explained that it may but there was also the possibility of bowel reacting to scar tissue from surgery or treated disease or areas of known disease irritating the bowel. We will await CT review and order additional studies if appropriate. <Lala,Bjorn - Last Filed: 05/08/19 22:19> Physical Exam Vitals: Vital Signs Temp Pulse Pulse Resp BP Pulse Ox 05/08/19 21:27 98.1 F 71 16 116/75 95 05/08/19 16:00 17 05/08/19 13:43 97.8 F 71 17 101/66 94 L 05/08/19 08:00 16 05/08/19 04:54 98 F 75 16 113/73 93 L Intake and Output 05/08/19 05/08/19 05/08/19 06:59 14:59 22:59 Intake Total 1250 500 Balance 1250 500 Intake: Intake, IV Titration 1250 250 Amount Potassium Chloride 20 meq 200 In Water For Injection 1 100ml.bag @ 50 mls/hr IVPB Q2H [facility] Rx#: [id number] Sodium Chloride 0.9% 1, 1050 250 000 ml @ 100 mls/hr IV . Q10H [facility] Rx#:[id number] Oral 250 Other: Voiding Method Toilet Toilet Toilet # Voids 1 1 1 # Bowel Movements 1 Results CBC & Chem 7: 05/08/19 09:08 05/08/19 17:15 Labs: Abnormal Lab Results - Last 24 Hours (Table) 05/08/19 05/08/19 Range/Units 09:08 09:08 RBC 3.31 L (3.80-5.40) m/uL Hgb 10.1 L (11.4-16.0) gm/dL Hct 30.5 L (34.0-46.0) % RDW 17.2 H (11.5-15.5) % Lymphocytes # 0.8 L (1.0-4.8) k/uL Sodium 134 L (137-145) mmol/L Potassium 3.1 L (3.5-5.1) mmol/L BUN 4 L (7-17) mg/dL Glucose 126 H (74-99) mg/dL Calcium 8.1 L (8.4-10.2) mg/dL Assessment and Plan Plan: Pt seen and examined. Agree with above. Await results of CT scan. Has not been back on Xeloda long enough to ideally determine response
[2019-05-06] MEDS: ZOLPIDEM 5 MG TAB PO SCH (23:12)
[2019-05-06] MEDS: ALPRAZolam 0.5 MG TAB PO PRN (23:12)
[2019-05-07] MEDS: SODIUM CHLORIDE 0.9% 1,000 ML IV SCH ×3 (04:01→21:57)
[2019-05-07] MEDS: HYDROmorphone 1 MG/ML 1 ML SYRINGE IVP PRN ×5 (04:02→21:43)
--- NOTE | 2019-05-07 04:37 | P.PN ---
Subjective Progress Note Date: 05/07/19 Principal diagnosis: 68-year-old pleasant female with known history of breast cancer metastatic peritoneal metastasis on oral chemotherapy came in with complaints of diffuse abdominal pain and predominant abdominal pain burning sensation in the epigastric area severe. Patient last bowel movement was on Thursday. Patient denied any fever chills patient was having some nausea vomiting as well. Nausea improved patient is presently nothing by mouth. Abdominal CAT scan was obtained which showed right-sided hydronephrosis which appears to be old and patient had a J-tube placed in the past which was subsequently removed. Her abdominal pain is not consistent with pyelonephritis. Patient denied any dysuria. Patient had multiple abdominal surgeries in the past and the patient had partial small bowel obstruction bowel obstruction multiple times in the past. Patient is on f entanyl patch for pain. Presently on the same medication along with the hydromorphone for pain patient is less nauseous will start her on clear liquid diet. Surgery Was Consulted. 05/04/2019 Patient is sitting up in bed in no acute distress. Patient has not had a bowel movement since Thursday and continues to have some abdominal discomfort. Patient is being given MiraLAX. This morning patient is having some nausea and vomiting and has Zofran ordered. Patient is to maintain on a clear liquid diet with small sips at this time. Surgery is following. 05/05/2019 Patient is sitting up in bed in no acute distress. No acute overnight issues. Patient is having some nausea but is tolerating a clear liquid diet. Patient would like to advance her diet. Patient had a small loose bowel movement today. MiraLAX was ordered as scheduled instead of when necessary as she has not been receiving it for the last 2 days. Milk of magnesia along with lactulose has been ordered as well. Discussed with the patient about the need for a possible enema or suppository and she states she will try the lactulose at this time. Surgery is following. No surgical interventions at this time. 05/06/2019 Patient is sitting up in the bed in no acute distress. Patient states that she had a lot of cramping and dry heaving throughout the night and had requested her pain medication intervals to be changed to every 4 hours as opposed to every 6 as they were previously scheduled. Orders were placed. Patient states that she did have bowel movements after an enema last night. Patient states that she has no appetite currently and is slightly nauseated. Patient is requesting information about palliative care and also a consult with her oncologist Dr. Reeves as she is feeling that she is unsure of her treatment plans at this point and is questioning her quality of life at this time. Patient denies any suicidal ideation or thoughts of harming herself. Objective - Vital Signs Vital signs: Vital Signs Temp 99.1 F 05/06/19 20:50 Pulse 71 05/06/19 20:50 Resp 20 05/06/19 20:50 BP 99/64 05/06/19 20:50 Pulse Ox 94 L 05/06/19 20:50 Intake & Output 05/06/19 05/06/19 05/07/19 06:59 18:59 06:59 Intake Total 1190 800 700 Balance 1190 800 700 Intake: Intake, IV Titration 900 800 500 Amount Sodium Chloride 0.9% 1, 900 800 500 000 ml @ 100 mls/hr IV . Q10H [facility] Rx#:[id number] Oral 290 200 Other: Voiding Method Toilet Toilet Toilet # Voids 1 1 1 # Bowel Movements 2 - Exam GENERAL: The patient is alert and oriented x3, not in any acute distress. Well developed, well nourished. HEENT: Pupils are round and equally reacting to light. EOMI. No scleral icterus. No conjunctival pallor. Normocephalic, atraumatic. No pharyngeal erythema. No thyromegaly. CARDIOVASCULAR: S1 and S2 present. No murmurs, rubs, or gallops. PULMONARY: Chest is clear to auscultation, no wheezing or crackles. ABDOMEN: Soft, mild tenderness noted on palpation of the lower abdomen, hypoactive bowel sounds MUSCULOSKELETAL: No joint swelling or deformity. EXTREMITIES: No cyanosis, clubbing, or pedal edema. NEUROLOGICAL: Gross neurological examination did not reveal any focal deficits. SKIN: No rashes. - Labs CBC & Chem 7: 05/03/19 03:23 05/03/19 03:23 Assessment and Plan Assessment: -epigastric abdominal pain and burning sensation probably secondary to peptic ulcer disease or gastritis, continue with Protonix -Possible partial small bowel obstruction secondary to constipation Will use her MiraLAX for that. patient was started on diet will see if she can tolerate diet if she cannot really make her nothing by mouth. General surgery was consulted. Patient is having some nausea again today with some abdominal discomfort. Patient states that she did have a few bowel movements last night. Diet has been advanced but patient remains nauseated with a decrease of appetite. -Metastatic breast cancer continue her chemo regimen -mild hyponatremia hypovolemic: IV fluids will continue -Bilateral atelectasis incentive spirometry as there is no clinical evidence of pneumonia -DVT prophylaxis early ambulation Recommendations and discussion: Recommend to continue current medications, management, and symptomatic treatment. Surgery and oncology are following closely. Awaiting report of CT done earlier this week in [place]. Patient requested palliative care information. Discussed with the patient at length about talking with oncology about her current treatment regimen and also about possible palliative care options and she is feeling that she is unsure of her quality of life if she is going to continue to feel these symptoms. Case management is following. Will continue to monitor closely. Guarded prognosis. Further recommendations to follow.
[2019-05-07 07:44] LABS: Anisocytosis Slight; Basophils % (A) 0 %; Eosinophils # (A) 0.3 k/uL (0-0.7); Eosinophils % (A) 4 %; HCT 30.6 % (34.0-46.0); HGB 10.1 gm/dL (11.4-16.0); Lymphocytes % (A) 16 %; MCH 30.1 pg (25.0-35.0); MCHC 32.9 g/dL (31.0-37.0); MCV 91.4 fL (80.0-100.0); Mean Platelet Volume 6.3; Monocytes # (A) 0.4 k/uL (0-1.0); Monocytes % (A) 7 %; Neutrophils # (A) 4.4 k/uL (1.3-7.7); Neutrophils % (A) 71 %; Platelet Count 239 k/uL (150-450); RBC 3.34 m/uL (3.80-5.40); RDW 17.4 % (11.5-15.5); WBC 6.3 k/uL (3.8-10.6)
[2019-05-07 07:54] LABS: ALT 20 U/L (9-52); AST 12 U/L (14-36); African American GFR (CKD) >90 (>60 ml/min/1.73 sqM); Albumin 2.4 g/dL (3.5-5.0); Alkaline Phosphatase 43 U/L (38-126); Anion Gap 6 mmol/L; Blood Urea Nitrogen 6 mg/dL (7-17); Carbon Dioxide 25 mmol/L (22-30); Chloride 105 mmol/L (98-107); Glucose 90 mg/dL (74-99); Non-African American GFR(CKD) >90 (>60 ml/min/1.73 sqM); Potassium 3.1 mmol/L (3.5-5.1); Sodium 136 mmol/L (137-145); Total Protein 4.9 g/dL (6.3-8.2)
[2019-05-07] MEDS: HEPARIN SODIUM,PORCINE 5,000 UNIT/ML 1 ML VIAL SQ SCH ×2 (08:37→20:40)
[2019-05-07] MEDS: SENNOSIDES 8.6 MG TAB PO SCH ×2 (08:37→20:40)
[2019-05-07] MEDS: PANTOPRAZOLE 40 MG TABLET PO SCH ×2 (08:37→20:40)
[2019-05-07] MEDS: POLYETHYLENE GLYCOL 3350 17 GM POWD.PACK PO SCH (08:38)
[2019-05-07] MEDS: XELODA 500 MG PO SCH ×2 (08:38→20:40)
[2019-05-07] MEDS: MYRBETRIQ (Mirabegron) 50 MG PO SCH (08:38)
--- NOTE | 2019-05-07 12:20 | P.PN ---
Subjective Progress Note Date: 05/07/19 CHIEF COMPLAINT: Ileus HISTORY OF PRESENT ILLNESS: The patient is a 68-year-old female who is admitted secondary to ileus. She is currently undergoing chemotherapy for metastatic breast cancer with intra-abdominal deposits. She is status post small bowel resection 4 months ago for which she's been doing fairly well. She had generalized abdominal pain yesterday after having multiple cathartics. Last bowel movement was 2 days ago. She is passing flatus. She feels much better today. She was able to tolerate pancakes this morning. No acute vomiting at this time. ROS: No fevers or chills. No new chest pain. No productive sputum PHYSICAL EXAM: VITAL SIGNS: Reviewed CONSTITUTIONAL: Well developed and in no acute distress. EYES: Conjuctivae without sclera icterus. Extraocular movements grossly intact. HEAD, EARS, NOSE, THROAT: Moist buccal mucosa. Head is atraumatic, normocepha lic. Hears conversational speech. No nasal drainage. NECK: Supple. No thyroidomegaly. RESPIRATORY: Non-labored respirations and equal bilateral excursions. CARDIOVASCULAR: Palpable 2+ radial pulses. Regular rate. Regular rhythm. ABDOMEN: No peritonitis MUSCULOSKELETAL: No gross deformity of the lower extremities noted. No clubbing. No cyanosis. SKIN: Good skin turgor. Well perfused. NEUROLOGIC: Cranial nerves I through XII grossly intact. No focal or lateralizing signs. PSYCH: Appropriate affect. Alert and oriented to person, place and time. CLINICAL LABS: White blood cell count normal ASSESSMENT: 1. Metastatic breast cancer to intraperitoneal mesentery 2. Ileus status post chemotherapy PLAN: 1. Per discussion with her, she reports oncology recommended repeat computed tomography scan to monitor progression of disease. 2. Otherwise, no acute surgical intervention at this time. Objective - Vital Signs Vital signs: Vital Signs Temp 98.2 F 05/07/19 04:35 Pulse 71 05/07/19 04:35 Resp 18 05/07/19 04:35 BP 97/63 05/07/19 04:35 Pulse Ox 96 05/07/19 04:35 Intake & Output 05/06/19 05/07/19 05/07/19 18:59 06:59 18:59 Intake Total 800 1100 Balance 800 1100 Intake: Intake, IV Titration 800 900 Amount Sodium Chloride 0.9% 1, 800 900 000 ml @ 100 mls/hr IV . Q10H [facility] Rx#:[id number] Oral 200 Other: Voiding Method Toilet Toilet # Voids 1 1 - Labs CBC & Chem 7: 05/07/19 07:12 05/07/19 07:12 Labs: Abnormal Lab Results - Last 24 Hours (Table) 05/07/19 05/07/19 Range/Units 07:12 07:12 RBC 3.34 L (3.80-5.40) m/uL Hgb 10.1 L (11.4-16.0) gm/dL Hct 30.6 L (34.0-46.0) % RDW 17.4 H (11.5-15.5) % Sodium 136 L (137-145) mmol/L Potassium 3.1 L (3.5-5.1) mmol/L BUN 6 L (7-17) mg/dL Calcium 8.0 L (8.4-10.2) mg/dL AST 12 L (14-36) U/L Total Protein 4.9 L (6.3-8.2) g/dL Albumin 2.4 L (3.5-5.0) g/dL Assessment and Plan (1) Metastatic breast cancer Current Visit: Yes Status: Chronic Priority: High Code(s): C50.919 - MALIGNANT NEOPLASM OF UNSP SITE OF UNSPECIFIED FEMALE BREAST SNOMED Code(s): 613104352 (2) Cancer related pain Current Visit: No Status: Acute Priority: High Code(s): G89.3 - NEOPLASM RELATED PAIN (ACUTE) (CHRONIC) SNOMED Code(s): 20796351059695 (3) Abdominal pain Current Visit: Yes Status: Chronic Priority: High Code(s): R10.9 - UNSPECIFIED ABDOMINAL PAIN SNOMED Code(s): 76824422 (4) Ileus Current Visit: No Status: Chronic Priority: High Code(s): K56.7 - ILEUS, UNSPECIFIED SNOMED Code(s): 123616138
[2019-05-07] MEDS: ONDANSETRON 4 MG/2 ML VIAL IVP PRN (14:55)
[2019-05-07] MEDS: ZOLPIDEM 5 MG TAB PO SCH (22:43)
[2019-05-07] MEDS: ALPRAZolam 0.5 MG TAB PO PRN (22:43)
[2019-05-07] MEDS ORDERED: Potassium Replacement Protocol 1 EACH MISC MISCELLANE PRN (23:48)
--- NOTE | 2019-05-08 00:03 | P.PN ---
Subjective Progress Note Date: 05/07/19 Principal diagnosis: Abdominal pain secondary to ileus 68-year-old pleasant female with known history of breast cancer metastatic peritoneal metastasis on oral chemotherapy came in with complaints of diffuse abdominal pain and predominant abdominal pain burning sensation in the epigastric area severe. Patient last bowel movement was on Thursday. Patient denied any fever chills patient was having some nausea vomiting as well. Nausea improved patient is presently nothing by mouth. Abdominal CAT scan was obtained which showed right-sided hydronephrosis which appears to be old and patient had a J-tube placed in the past which was subsequently removed. Her abdominal pain is not consistent with pyelonephritis. Patient denied any dysuria. Patient had multiple abdominal surgeries in the past and the patient had partial small bowel obstruction bowel obstruction multiple times in the past. Patient is on fentanyl patch for pain. Presently on the same medication along with the hydromorphone for pain patient is less nauseous will start her on clear liquid diet. Surgery Was Consulted. 05/04/2019 Patient is sitting up in bed in no acute distress. Patient has not had a bowel movement since Thursday and continues to have some abdominal discomfort. Patient is being given MiraLAX. This morning patient is having some nausea and vomiting and has Zofran ordered. Patient is to maintain on a clear liquid diet with small sips at this time. Surgery is following. 05/05/2019 Patient is sitting up in bed in no acute distress. No acute overnight issues. Patient is having some nausea but is tolerating a clear liquid diet. Patient would like to advance her diet. Patient had a small loose bowel movement today. MiraLAX was ordered as scheduled instead of when necessary as she has not been receiving it for the last 2 days. Milk of magnesia along with lactulose has been ordered as well. Discussed with the patient about the need for a possible enema or suppository and she states she will try the lactulose at this time. Surgery is following. No surgical interventions at this time. 05/06/2019 Patient is sitting up in the bed in no acute distress. Patient states that she had a lot of cramping and dry heaving throughout the night and had requested her pain medication intervals to be changed to every 4 hours as opposed to every 6 as they were previously scheduled. Orders were placed. Patient states that she did have bowel movements after an enema last night. Patient states that she has no appetite currently and is slightly nauseated. Patient is requesting information about palliative care and also a consult with her oncologist Dr. Reeves as she is feeling that she is unsure of her treatment plans at this point and is questioning her quality of life at this time. Patient denies any suicidal ideation or thoughts of harming herself. 05/07/2019 Patient is currently lying in the bed comfortably. Abdominal pain is much improved now. Patient did have bowel movements with stool softeners yesterday. Currently being continued on MiraLAX. Pain is controlled with Dilaudid. Otherwise patient is currently on chemotherapy due to metastatic breast cancer. Pain medication will be transitioned to morphine 15 mg twice a day and limit IV pain medications. Has been afebrile. General surgery is following. No complaints of chest pain or shortness of breath. No nausea vomiting or diarrhea. Current medications reviewed. Objective - Vital Signs Vital signs: Vital Signs Temp 98 F 05/07/19 20:23 Pulse 79 05/07/19 20:23 Resp 16 05/07/19 20:23 BP 126/75 05/07/19 20:23 Pulse Ox 95 05/07/19 20:23 Intake & Output 05/07/19 05/07/19 05/08/19 06:59 18:59 06:59 Intake Total 1100 800 Balance 1100 800 Intake: Intake, IV Titration 900 800 Amount Sodium Chloride 0.9% 1, 900 800 000 ml @ 100 mls/hr IV . Q10H [facility] Rx#:[id number] Oral 200 Other: Voiding Method Toilet # Voids 1 - Exam GENERAL: The patient is alert and oriented x3, not in any acute distress. Well developed, well nourished. HEENT: Pupils are round and equally reacting to light. EOMI. No scleral icterus. No conjunctival pallor. Normocephalic, atraumatic. No pharyngeal erythema. No thyromegaly. CARDIOVASCULAR: S1 and S2 present. No murmurs, rubs, or gallops. PULMONARY: Chest is clear to auscultation, no wheezing or crackles. ABDOMEN: Soft, mild tenderness noted on palpation of the lower abdomen, hypoactive bowel sounds MUSCULOSKELETAL: No joint swelling or deformity. EXTREMITIES: No cyanosis, clubbing, or pedal edema. NEUROLOGICAL: Gross neurological examination did not reveal any focal deficits. SKIN: No rashes. - Labs CBC & Chem 7: 05/07/19 07:12 05/07/19 07:12 Labs: Abnormal Lab Results - Last 24 Hours (Table) 05/07/19 05/07/19 Range/Units 07:12 07:12 RBC 3.34 L (3.80-5.40) m/uL Hgb 10.1 L (11.4-16.0) gm/dL Hct 30.6 L (34.0-46.0) % RDW 17.4 H (11.5-15.5) % Sodium 136 L (137-145) mmol/L Potassium 3.1 L (3.5-5.1) mmol/L BUN 6 L (7-17) mg/dL Calcium 8.0 L (8.4-10.2) mg/dL AST 12 L (14-36) U/L Total Protein 4.9 L (6.3-8.2) g/dL Albumin 2.4 L (3.5-5.0) g/dL Assessment and Plan Assessment: -epigastric abdominal pain and burning sensation probably secondary to peptic ulcer disease or gastritis, continue with Protonix -Ileus and Possible partial small bowel obstruction secondary to constipation Will use her MiraLAX for that. patient was started on diet will see if she can tolerate diet if she cannot really make her nothing by mouth. General surgery is following. Diet has been advanced but patient remains nauseated with a decrease of appetite. -Metastatic breast cancer continue her chemo regimen -mild hyponatremia hypovolemic: IV fluids will continue -Hypokalemia. Replaced -Bilateral atelectasis incentive spirometry as there is no clinical evidence of pneumonia -DVT prophylaxis early ambulation Recommendations and discussion: Recommend to continue current medications, management, and symptomatic treatment. Surgery and oncology are following closely. Awaiting report of CT done earlier this week in [place]. Patient requested palliative care information. Discussed with the patient at length about talking with oncology about her current treatment regimen and also about possible palliative care options and she is feeling that she is unsure of her quality of life if she is going to continue to feel these symptoms. Case management is following. Will continue to monitor closely. Guarded prognosis. Further recommendations to follow. Time with Patient: Greater than 30
[2019-05-08] MEDS: POTASSIUM CHLORIDE 20 MEQ in WATER FOR INJECTION 1 100ML.BAG IVPB SCH ×2 (01:53→04:23)
[2019-05-08] MEDS: HYDROmorphone 1 MG/ML 1 ML SYRINGE IVP PRN ×4 (01:59→22:15)
[2019-05-08] MEDS: MORPHINE SULFATE ER 15 MG TABLET PO SCH ×2 (08:38→22:14)
[2019-05-08] MEDS: PANTOPRAZOLE 40 MG TABLET PO SCH ×2 (08:38→20:12)
[2019-05-08] MEDS: SENNOSIDES 8.6 MG TAB PO SCH ×2 (08:39→20:12)
[2019-05-08] MEDS: POLYETHYLENE GLYCOL 3350 17 GM POWD.PACK PO SCH (08:41)
[2019-05-08] MEDS: HEPARIN SODIUM,PORCINE 5,000 UNIT/ML 1 ML VIAL SQ SCH ×2 (08:41→20:13)
[2019-05-08] MEDS: MYRBETRIQ (Mirabegron) 50 MG PO SCH (08:41)
[2019-05-08] MEDS: XELODA 500 MG PO SCH ×2 (08:42→22:14)
[2019-05-08 09:35] LABS: Anisocytosis Slight; Basophils % (A) 1 %; Eosinophils # (A) 0.3 k/uL (0-0.7); Eosinophils % (A) 7 %; HCT 30.5 % (34.0-46.0); HGB 10.1 gm/dL (11.4-16.0); Lymphocytes # (A) 0.8 k/uL (1.0-4.8); Lymphocytes % (A) 17 %; MCH 30.5 pg (25.0-35.0); MCV 92.3 fL (80.0-100.0); Mean Platelet Volume 7.3; Monocytes # (A) 0.3 k/uL (0-1.0); Monocytes % (A) 6 %; Neutrophils # (A) 3.1 k/uL (1.3-7.7); Neutrophils % (A) 68 %; Platelet Count 260 k/uL (150-450); RBC 3.31 m/uL (3.80-5.40); RDW 17.2 % (11.5-15.5); WBC 4.6 k/uL (3.8-10.6)
[2019-05-08 09:47] LABS: African American GFR (CKD) >90 (>60 ml/min/1.73 sqM); Anion Gap 8 mmol/L; Blood Urea Nitrogen 4 mg/dL (7-17); Calcium 8.1 mg/dL (8.4-10.2); Carbon Dioxide 26 mmol/L (22-30); Chloride 100 mmol/L (98-107); Glucose 126 mg/dL (74-99); Non-African American GFR(CKD) >90 (>60 ml/min/1.73 sqM); Potassium 3.1 mmol/L (3.5-5.1); Sodium 134 mmol/L (137-145)
[2019-05-08] MEDS: ONDANSETRON 4 MG/2 ML VIAL IVP PRN (10:36)
[2019-05-08] MEDS: POTASSIUM CHLORIDE ER 20 MEQ TAB.ER PO SCH ×2 (11:35→13:06)
--- NOTE | 2019-05-08 12:11 | P.PN ---
Subjective Progress Note Date: 05/08/19 CHIEF COMPLAINT: Ileus HISTORY OF PRESENT ILLNESS: The patient is a 68-year-old female who is admitted secondary to ileus. She is currently undergoing chemotherapy for metastatic breast cancer with intra-abdominal deposits. She is status post small bowel resection 4 months ago, December, for which she's been doing fairly well. She reports that her cancer numbers and tumor markers has gone up with her current chemotherapy medications. In fact, she had a recent CT of the chest abdomen and pelvis on 05/02/2019 at [place] which was suboptimal without IV contrast. With the progression of her disease, anorexia is inspected. Additionally, chemotherapeutic agents known to cause ileus including gastritis and potential constipation. Since hospitalization, she has had bowel movements. She requires being on a consistent laxative regimen. She prefers to eat outside food from the hospital. She is tolerating diet. She also has thoracic compression which radiates to the anterior abdominal wall which can cause chronic epigastric abdominal pain as well. ROS: No fevers or chills. No new chest pain. No productive sputum PHYSICAL EXAM: VITAL SIGNS: Reviewed CONSTITUTIONAL: Well developed and in no acute distress. EYES: Conjuctivae without sclera icterus. Extraocular movements grossly intact. HEAD, EARS, NOSE, THROAT: Moist buccal mucosa. Head is atraumatic, normocephalic. Hears conversational speech. No nasal drainage. NECK: Supple. No thyroidomegaly. RESPIRATORY: Non-labored respirations and equal bilateral excursions. CARDIOVASCULAR: Palpable 2+ radial pulses. Regular rate. Regular rhythm. ABDOMEN: No peritonitis. Soft. Well-healed midline incision without incisional hernias. MUSCULOSKELETAL: No gross deformity of the lower extremities noted. No clubbing. No cyanosis. SKIN: Good skin turgor. Well perfused. NEUROLOGIC: Cranial nerves I through XII grossly intact. No focal or lateralizing signs. PSYCH: Appropriate affect. Alert and oriented to person, place and time. CLINICAL LABS: White blood cell count normal STUDIES: CT of the abdomen and pelvis [facility] on 05/02/2019 personally and independently reviewed demonstrating moderate stool within the ascending colon and sigmoid colon. The study is suboptimal without oral or IV contrast. No obstructive bowel gas patterns identified. ASSESSMENT: 1. Metastatic breast cancer to intraperitoneal mesentery 2. Ileus status post chemotherapy 3. Anorexia with chronic constipation 4. Gastritis 5. Epigastric pain with thoracic compression fracture PLAN: 1. Will adjust laxative regimen for constipation. 2. For anorexia, she is on Marinol and would benefit from other agents to stimulate appetite 3. Overall, no clinical evidence of bowel obstruction. Patient stable from surgical standpoint. 4. Discharge pending primary team assessment 5. For her epigastric abdominal pain, recommend antacids for gastritis. 6. Additionally, location of pain consistent with compression fracture of thoracic lumbar spine with radiation to the abdomen. Objective - Vital Signs Vital signs: Vital Signs Temp 98 F 05/08/19 04:54 Pulse 75 05/08/19 04:54 Resp 16 05/08/19 08:00 BP 113/73 05/08/19 04:54 Pulse Ox 93 L 05/08/19 04:54 Intake & Output 05/07/19 05/08/19 05/08/19 18:59 06:59 18:59 Intake Total 800 1250 Balance 800 1250 Intake: Intake, IV Titration 800 1250 Amount Potassium Chloride 20 meq 200 In Water For Injection 1 100ml.bag @ 50 mls/hr IVPB Q2H [facility] Rx#: [id number] Sodium Chloride 0.9% 1, 800 1050 000 ml @ 100 mls/hr IV . Q10H [facility] Rx#:[id number] Other: Voiding Method Toilet Toilet # Voids 1 - Labs CBC & Chem 7: 05/08/19 09:08 05/08/19 09:08 Labs: Abnormal Lab Results - Last 24 Hours (Table) 05/08/19 05/08/19 Range/Units 09:08 09:08 RBC 3.31 L (3.80-5.40) m/uL Hgb 10.1 L (11.4-16.0) gm/dL Hct 30.5 L (34.0-46.0) % RDW 17.2 H (11.5-15.5) % Lymphocytes # 0.8 L (1.0-4.8) k/uL Sodium 134 L (137-145) mmol/L Potassium 3.1 L (3.5-5.1) mmol/L BUN 4 L (7-17) mg/dL Glucose 126 H (74-99) mg/dL Calcium 8.1 L (8.4-10.2) mg/dL Assessment and Plan (1) Metastatic breast cancer Current Visit: Yes Status: Chronic Priority: High Code(s): C50.919 - MALIGNANT NEOPLASM OF UNSP SITE OF UNSPECIFIED FEMALE BREAST SNOMED Code(s): 557164129 (2) Cancer related pain Current Visit: No Status: Acute Priority: High Code(s): G89.3 - NEOPLASM RELATED PAIN (ACUTE) (CHRONIC) SNOMED Code(s): 27566866728397 (3) Abdominal pain Current Visit: Yes Status: Chronic Priority: High Code(s): R10.9 - UNSPE CIFIED ABDOMINAL PAIN SNOMED Code(s): 01196159 (4) Ileus Current Visit: No Status: Chronic Priority: High Code(s): K56.7 - ILEUS, UNSPECIFIED SNOMED Code(s): 004101182 (5) Chronic constipation Current Visit: Yes Status: Acute Code(s): K59.09 - OTHER CONSTIPATION SNOMED Code(s): 704163316
[2019-05-08] MEDS: LACTULOSE 20 GM/30 ML CUP PO SCH ×2 (12:30→20:13)
[2019-05-08] MEDS: DOCUSATE 100 MG CAP PO SCH (12:30)
[2019-05-08] MEDS: SODIUM CHLORIDE 0.9% 1,000 ML IV SCH (14:35)
[2019-05-08] MEDS ORDERED: POTASSIUM CHLORIDE ER 20 MEQ TAB.ER PO STA (18:01)
[2019-05-08 21:28] VITALS: RESP 16
[2019-05-08] MEDS: ZOLPIDEM 5 MG TAB PO SCH (22:56)
[2019-05-08] MEDS: ALPRAZolam 0.5 MG TAB PO PRN (22:56)
[2019-05-09] MEDS: SODIUM CHLORIDE 0.9% 1,000 ML IV SCH ×3 (00:21→16:20)
--- NOTE | 2019-05-09 01:12 | P.PN ---
Subjective Progress Note Date: 05/08/19 Principal diagnosis: Abdominal pain secondary to ileus 68-year-old pleasant female with known history of breast cancer metastatic peritoneal metastasis on oral chemotherapy came in with complaints of diffuse abdominal pain and predominant abdominal pain burning sensation in the epigastric area severe. Patient last bowel movement was on Thursday. Patient denied any fever chills patient was having some nausea vomiting as well. Nausea improved patient is presently nothing by mouth. Abdominal CAT scan was obtained which showed right-sided hydronephrosis which appears to be old and patient had a J-tube placed in the past which was subsequently removed. Her abdominal pain is not consistent with pyelonephritis. Patient denied any dysuria. Patient had multiple abdominal surgeries in the past and the patient had partial small bowel obstruction bowel obstruction multiple times in the past. Patient is on fentanyl patch for pain. Presently on the same medication along with the hydromorphone for pain patient is less nauseous will start her on clear liquid diet. Surgery Was Consulted. 05/04/2019 Patient is sitting up in bed in no acute distress. Patient has not had a bowel movement since Thursday and continues to have some abdominal discomfort. Patient is being given MiraLAX. This morning patient is having some nausea and vomiting and has Zofran ordered. Patient is to maintain on a clear liquid diet with small sips at this time. Surgery is following. 05/05/2019 Patient is sitting up in bed in no acute distress. No acute overnight issues. Patient is having some nausea but is tolerating a clear liquid diet. Patient would like to advance her diet. Patient had a small loose bowel movement today. MiraLAX was ordered as scheduled instead of when necessary as she has not been receiving it for the last 2 days. Milk of magnesia along with lactulose has been ordered as well. Discussed with the patient about the need for a possible enema or suppository and she states she will try the lactulose at this time. Surgery is following. No surgical interventions at this time. 05/06/2019 Patient is sitting up in the bed in no acute distress. Patient states that she had a lot of cramping and dry heaving throughout the night and had requested her pain medication intervals to be changed to every 4 hours as opposed to every 6 as they were previously scheduled. Orders were placed. Patient states that she did have bowel movements after an enema last night. Patient states that she has no appetite currently and is slightly nauseated. Patient is requesting information about palliative care and also a consult with her oncologist Dr. Reeves as she is feeling that she is unsure of her treatment plans at this point and is questioning her quality of life at this time. Patient denies any suicidal ideation or thoughts of harming herself. 05/07/2019 Patient is currently lying in the bed comfortably. Abdominal pain is much improved now. Patient did have bowel movements with stool softeners yesterday. Currently being continued on MiraLAX. Pain is controlled with Dilaudid. Otherwise patient is currently on chemotherapy due to metastatic breast cancer. Pain medication will be transitioned to morphine 15 mg twice a day and limit IV pain medications. Has been afebrile. General surgery is following. No complaints of chest pain or shortness of breath. No nausea vomiting or diarrhea. 05/08/2019 Patient is still complaining of abdominal pain but able to tolerate oral diet. Abdominal pain radiating pain from thoracic compression fractures as per general surgery. Patient was started on oral morphine every 12 hours will be increased to every 8 hours. No fever no chills. Patient did not have any bowel movement last few days. MiraLAX is being continued. Anticipate discharge in next 24 hours with better pain control. Current medications reviewed. Objective - Vital Signs Vital signs: Vital Signs Temp 98.1 F 05/08/19 21:27 Pulse 71 05/08/19 21:27 Resp 16 05/08/19 21:27 BP 116/75 05/08/19 21:27 Pulse Ox 95 05/08/19 21:27 Intake & Output 05/08/19 05/08/19 05/09/19 06:59 18:59 06:59 Intake Total 1250 500 Balance 1250 500 Intake: Intake, IV Titration 1250 250 Amount Potassium Chloride 20 meq 200 In Water For Injection 1 100ml.bag @ 50 mls/hr IVPB Q2H [facility] Rx#: [id number] Sodium Chloride 0.9% 1, 1050 250 000 ml @ 100 mls/hr IV . Q10H [facility] Rx#:[id number] Oral 250 Other: Voiding Method Toilet Toilet # Voids 1 1 # Bowel Movements 1 - Exam GENERAL: The patient is alert and oriented x3, not in any acute distress. Well developed, well nourished. HEENT: Pupils are round and equally reacting to light. EOMI. No scleral icterus. No conjunctival pallor. Normocephalic, atraumatic. No pharyngeal erythema. No thyromegaly. CARDIOVASCULAR: S1 and S2 present. No murmurs, rubs, or gallops. PULMONARY: Chest is clear to auscultation, no wheezing or crackles. ABDOMEN: Soft, mild tenderness noted on palpation of the lower abdomen, hypoactive bowel sounds MUSCULOSKELETAL: No joint swelling or deformity. EXTREMITIES: No cyanosis, clubbing, or pedal edema. NEUROLOGICAL: Gross neurological examination did not reveal any focal deficits. SKIN: No rashes. - Labs CBC & Chem 7: 05/08/19 09:08 05/08/19 17:15 Labs: Abnormal Lab Results - Last 24 Hours (Table) 05/08/19 05/08/19 Range/Units 09:08 09:08 RBC 3.31 L (3.80-5.40) m/uL Hgb 10.1 L (11.4-16.0) gm/dL Hct 30.5 L (34.0-46.0) % RDW 17.2 H (11.5-15.5) % Lymphocytes # 0.8 L (1.0-4.8) k/uL Sodium 134 L (137-145) mmol/L Potassium 3.1 L (3.5-5.1) mmol/L BUN 4 L (7-17) mg/dL Glucose 126 H (74-99) mg/dL Calcium 8.1 L (8.4-10.2) mg/dL Assessment and Plan Assessment: -epigastric abdominal pain and burning sensation probably secondary to peptic ulcer disease or gastritis, versus radiating pain from thoracic compression fractures. continue with Protonix -Ileus and Possible partial small bowel obstruction secondary to constipation Will use her MiraLAX for that. patient was started on diet will see if she can tolerate diet if she cannot really make her nothing by mouth. General surgery is following. Diet has been advanced but patient remains nauseated with a decrease of appetite. -Metastatic breast cancer continue her chemo regimen -mild hyponatremia hypovolemic: IV fluids will continue -Hypokalemia. Replaced -Bilateral atelectasis incentive spirometry as there is no clinical evidence of pneumonia -DVT prophylaxis early ambulation Recommendations and discussion: Recommend to continue current medications, management, and symptomatic treatment. Surgery and oncology are following closely. Awaiting report of CT done earlier this week in [place]. Patient requested palliative care information. Discussed with the patient at length about talking with oncology about her current treatment regimen and also about possible palliative care options and she is feeling that she is unsure of her quality of life if she is going to continue to feel these symptoms. Case management is following. Will continue to monitor closely. Guarded prognosis. Further recommendations to follow. Time with Patient: Greater than 30
[2019-05-09] MEDS: PANTOPRAZOLE 40 MG TABLET PO SCH ×2 (07:55→20:23)
[2019-05-09] MEDS: HEPARIN SODIUM,PORCINE 5,000 UNIT/ML 1 ML VIAL SQ SCH ×3 (07:55→20:24)
[2019-05-09] MEDS: POLYETHYLENE GLYCOL 3350 17 GM POWD.PACK PO SCH (07:55)
[2019-05-09] MEDS: DOCUSATE 100 MG CAP PO SCH (07:56)
[2019-05-09] MEDS: SENNOSIDES 8.6 MG TAB PO SCH ×2 (07:56→20:24)
[2019-05-09] MEDS: LACTULOSE 20 GM/30 ML CUP PO SCH ×2 (07:56→20:24)
[2019-05-09] MEDS: XELODA 500 MG PO SCH ×2 (07:57→20:23)
[2019-05-09] MEDS ORDERED: MORPHINE SULFATE ER 15 MG TABLET PO SCH (08:00)
[2019-05-09] MEDS: MYRBETRIQ (Mirabegron) 50 MG PO SCH (08:06)
[2019-05-09 08:35] LABS: ALT 19 U/L (9-52); AST 10 U/L (14-36); African American GFR (CKD) >90 (>60 ml/min/1.73 sqM); Albumin 2.5 g/dL (3.5-5.0); Alkaline Phosphatase 47 U/L (38-126); Anion Gap 6 mmol/L; Blood Urea Nitrogen 3 mg/dL (7-17); Calcium 8.1 mg/dL (8.4-10.2); Carbon Dioxide 27 mmol/L (22-30); Chloride 102 mmol/L (98-107); Glucose 85 mg/dL (74-99); Non-African American GFR(CKD) >90 (>60 ml/min/1.73 sqM); Potassium 3.7 mmol/L (3.5-5.1); Sodium 135 mmol/L (137-145); Total Bilirubin 0.6 mg/dL (0.2-1.3)
[2019-05-09] MEDS ORDERED: Potassium Replacement Protocol 1 EACH MISC MISCELLANE PRN (08:38)
[2019-05-09] MEDS ORDERED: POTASSIUM CHLORIDE ER 20 MEQ TAB.ER PO SCH (09:00)
[2019-05-09] MEDS: IOPAMIDOL CONTRAST (ORAL USE) VIAL PO PRN ×2 (12:21→13:09)
--- NOTE | 2019-05-09 12:30 | P.PN ---
Subjective Progress Note Date: 05/09/19 Principal diagnosis: Met breast cancer, partial SBO/ileus from disease In f/u today pt states she is feeling much better, he abd pain is minimal, abd is much softer. No fever, vomiting, she has no other c/o. Objective - Vital Signs Vital signs: Vital Signs Temp 98.7 F 05/09/19 12:05 Pulse 71 05/09/19 12:05 Resp 16 05/09/19 12:05 BP 96/61 05/09/19 12:05 Pulse Ox 97 05/09/19 12:05 Intake & Output 05/08/19 05/09/19 05/09/19 18:59 06:59 18:59 Intake Total 500 900 Balance 500 900 Intake: Intake, IV Titration 250 900 Amount Sodium Chloride 0.9% 1, 250 900 000 ml @ 100 mls/hr IV . Q10H [facility] Rx#:[id number] Oral 250 Other: Voiding Method Toilet Toilet # Voids 1 1 # Bowel Movements 1 2 - Constitutional General appearance: Present: cooperative, no acute distress - EENT Eyes: Present: anicteric sclerae, EOMI ENT: Present: hearing grossly normal - Respiratory Respiratory: bilateral: CTA - Cardiovascular Heart sounds: normal: S1, S2 Abnormal Heart Sounds: Absent: systolic murmur, diastolic murmur, rub, S3 Gallop, S4 Gallop, click, other - Peripheral edema leg Peripheral Edema: bilateral: None - Gastrointestinal General gastrointestinal: Present: normal bowel sounds, soft. Absent: absent bowel sounds, decreased bowel sounds, distended, hepatomegaly, hyperactive bowel sounds, organomegaly, rigid, scaphoid, splenomegaly, tenderness, umbilical hernia, ventral hernia - Neurologic Neurologic: Present: CNII-XII intact - Musculoskeletal Musculoskeletal: Present: strength equal bilaterally - Psychiatric Psychiatric: Present: A&O x's 3, appropriate affect, intact judgment & insight - Labs CBC & Chem 7: 05/08/19 09:08 05/09/19 07:09 Labs: Abnormal Lab Results - Last 24 Hours (Table) 05/09/19 Range/Units 07:09 Sodium 135 L (137-145) mmol/L BUN 3 L (7-17) mg/dL Calcium 8.1 L (8.4-10.2) mg/dL AST 10 L (14-36) U/L Total Protein 5.0 L (6.3-8.2) g/dL Albumin 2.5 L (3.5-5.0) g/dL Assessment and Plan (1) Abdominal pain Narrative/Plan: Pain from SOB/ileus from disease, improved with conservative mgmt. Unfortunately, insurance is not going to allow 2 long acting opioid medicines, and it is a struggle to get TID on ER morphine approved. Patient was on fentanyl patch and then extended release morphine was added. Since patient had fentanyl Rx the dose of this was increased. Breakthrough pain medication with immediate release morphine has been added. Reviewed with patient the importance of maintaining a bowel regimen as she is on pain medications which contribute to ileus. She verbalized understanding. We discussed options for treatment including MiraLAX, stool softeners, stimulants and fiber. Current Visit: Yes Status: Chronic Priority: High Code(s): R10.9 - UNSPECIFIED ABDOMINAL PAIN SNOMED Code(s): 50496418 (2) Metastatic breast cancer Narrative/Plan: Patient's CT from [place] was without contrast. The report was reviewed, there was no discussion of the disease process contributing to patient's ab dominal pain, we discussed this. She was asking questions about prognosis, treatment options, and discussed with nursing quality of life issues. CT of the abdomen and pelvis with contrast has been ordered. This will be compared to previous CT, I believe the last one here was in December. We will await those results. This can be reviewed with patient in the outpatient setting. It will be discussed how pt would like to live to her life. I have appt for pt this Thursday with Dr. Reeves. They can review scans and discuss how pt wants to continue. Current Visit: Yes Status: Chronic Priority: High Code(s): C50.919 - MALIGNANT NEOPLASM OF UNSP SITE OF UNSPECIFIED FEMALE BREAST SNOMED Code(s): 472564108 (3) S/P small bowel resection Current Visit: No Status: Chronic Priority: High Code(s): Z90.49 - ACQUIRED ABSENCE OF OTHER SPECIFIED PARTS OF DIGESTIVE TRACT SNOMED Code(s): 499049604889004
--- NOTE | 2019-05-09 14:30 | P.PN ---
<Teresita Weaver - Last Filed: 05/09/19 14:28> Subjective Progress Note Date: 05/09/19 CHIEF COMPLAINT: abdominal pain HISTORY OF PRESENT ILLNESS: Patient examined at the bedside. She denies abdominal pain. Denies nausea or vomiting. She is passing flatus. Reports BM last night. PHYSICAL EXAM: VITAL SIGNS: Reviewed GENERAL: Well-developed in no acute distress. HEENT: No sclera icterus. Extraocular movements grossly intact. Moist buccal mucosa. Head is atraumatic, normocephalic. Hears conversational speech. No nasal drainage. NECK: Supple without lymphadenopathy. CHEST: Non-labored respirations and equal bilateral excursions. CARDIOVASCULAR: Regular rate with regular rhythm. Palpable 2+ radial pulses. ABDOMEN: Soft. Nondistended. Nontender. MUSCULOSKELETAL: No clubbing, cyanosis or edema. NEUROLOGIC: No focal or lateralizing signs. Cranial nerves II through XII grossly intact. PSYCH: Appropriate affect. Alert and oriented to person, place and time. SKIN: Well perfused. Good skin turgor. ASSESSMENT: 1. Ileus 2. Active chemotherapy for metastatic breast cancer 3. Small bowel resection due to obstruction, 01/12/2019 4. Mild protein calorie malnutrition PLAN: Patient stable for discharge from a surgical standpoint. Will defer to primary service. Continue bowel regimen at discharge. Nurse practitioner note has been reviewed by physician. Signing provider agrees with the documented findings, assessment, and plan of care. Objective - Vital Signs Vital signs: Vital Signs Temp 98.7 F 05/09/19 12:05 Pulse 71 05/09/19 12:05 Resp 16 05/09/19 12:05 BP 96/61 05/09/19 12:05 Pulse Ox 97 05/09/19 12:05 Intake & Output 05/08/19 05/09/19 05/09/19 18:59 06:59 18:59 Intake Total 500 900 Balance 500 900 Weight 46.8 kg Intake: Intake, IV Titration 250 900 Amount Sodium Chloride 0.9% 1, 250 900 000 ml @ 100 mls/hr IV . Q10H [facility] Rx#:[id number] Oral 250 Other: Voiding Method Toilet Toilet # Voids 1 1 # Bowel Movements 1 2 - Labs CBC & Chem 7: 05/08/19 09:08 05/09/19 07:09 Labs: Abnormal Lab Results - Last 24 Hours (Table) 05/09/19 Range/Units 07:09 Sodium 135 L (137-145) mmol/L BUN 3 L (7-17) mg/dL Calcium 8.1 L (8.4-10.2) mg/dL AST 10 L (14-36) U/L Total Protein 5.0 L (6.3-8.2) g/dL Albumin 2.5 L (3.5-5.0) g/dL <Salma Downey N - Last Filed: 05/09/19 17:06> Subjective As above. Recommend appetite stimulants for anorexia Objective - Vital Signs Vital signs: Vital Signs Temp 98.7 F 05/09/19 12:05 Pulse 71 05/09/19 12:05 Resp 16 05/09/19 12:05 BP 96/61 05/09/19 12:05 Pulse Ox 97 05/09/19 12:05 Intake & Output 05/08/19 05/09/19 05/09/19 18:59 06:59 18:59 Intake Total 500 900 800 Balance 500 900 800 Weight 46.8 kg Intake: Intake, IV Titration 250 900 800 Amount Sodium Chloride 0.9% 1, 250 900 800 000 ml @ 100 mls/hr IV . Q10H [facility] Rx#:[id number] Oral 250 Other: Voiding Method Toilet Toilet # Voids 1 1 # Bowel Movements 1 2 - Labs CBC & Chem 7: 05/08/19 09:08 05/09/19 07:09 Labs: Abnormal Lab Results - Last 24 Hours (Table) 05/09/19 Range/Units 07:09 Sodium 135 L (137-145) mmol/L BUN 3 L (7-17) mg/dL Calcium 8.1 L (8.4-10.2) mg/dL AST 10 L (14-36) U/L Total Protein 5.0 L (6.3-8.2) g/dL Albumin 2.5 L (3.5-5.0) g/dL Assessment and Plan (1) Metastatic breast cancer Current Visit: Yes Status: Chronic Priority: High Code(s): C50.919 - MALIGNANT NEOPLASM OF UNSP SITE OF UNSPECIFIED FEMALE BREAST SNOMED Code(s): 982855903 (2) Cancer related pain Current Visit: No Status: Acute Priority: High Code(s): G89.3 - NEOPLASM RELATED PAIN (ACUTE) (CHRONIC) SNOMED Code(s): 28269917977646 (3) Abdominal pain Current Visit: Yes Status: Chronic Priority: High Code(s): R10.9 - UNSPECIFIED ABDOMINAL PAIN SNOMED Code(s): 49808550 (4) Ileus Current Visit: No Status: Chronic Priority: High Code(s): K56.7 - ILEUS, UNSPECIFIED SNOMED Code(s): 473947968 (5) Chronic constipation Current Visit: Yes Status: Acute Code(s): K59.09 - OTHER CONSTIPATION SNOMED Code(s): 262056583
[2019-05-09] MEDS: MORPHINE SULFATE IR 15 MG TABLET PO PRN ×2 (16:18→20:23)
--- NOTE | 2019-05-09 16:38 | P.PN ---
Subjective Progress Note Date: 05/09/19 Principal diagnosis: 68-year-old pleasant female with known history of breast cancer metastatic peritoneal metastasis on oral chemotherapy came in with complaints of diffuse abdominal pain and predominant abdominal pain burning sensation in the epigastric area severe. Patient last bowel movement was on Thursday. Patient denied any fever chills patient was having some nausea vomiting as well. Nausea improved patient is presently nothing by mouth. Abdominal CAT scan was obtained which showed right-sided hydronephrosis which appears to be old and patient had a J-tube placed in the past which was subsequently removed. Her abdominal pain is not consistent with pyelonephritis. Patient denied any dysuria. Patient had multiple abdominal surgeries in the past and the patient had partial small bowel obstruction bowel obstruction multiple times in the past. Patient is on f entanyl patch for pain. Presently on the same medication along with the hydromorphone for pain patient is less nauseous will start her on clear liquid diet. Surgery Was Consulted. 05/04/2019 Patient is sitting up in bed in no acute distress. Patient has not had a bowel movement since Thursday and continues to have some abdominal discomfort. Patient is being given MiraLAX. This morning patient is having some nausea and vomiting and has Zofran ordered. Patient is to maintain on a clear liquid diet with small sips at this time. Surgery is following. 05/05/2019 Patient is sitting up in bed in no acute distress. No acute overnight issues. Patient is having some nausea but is tolerating a clear liquid diet. Patient would like to advance her diet. Patient had a small loose bowel movement today. MiraLAX was ordered as scheduled instead of when necessary as she has not been receiving it for the last 2 days. Milk of magnesia along with lactulose has been ordered as well. Discussed with the patient about the need for a possible enema or suppository and she states she will try the lactulose at this time. Surgery is following. No surgical interventions at this time. 05/06/2019 Patient is sitting up in the bed in no acute distress. Patient states that she had a lot of cramping and dry heaving throughout the night and had requested her pain medication intervals to be changed to every 4 hours as opposed to every 6 as they were previously scheduled. Orders were placed. Patient states that she did have bowel movements after an enema last night. Patient states that she has no appetite currently and is slightly nauseated. Patient is requesting information about palliative care and also a consult with her oncologist Dr. Reeves as she is feeling that she is unsure of her treatment plans at this point and is questioning her quality of life at this time. Patient denies any suicidal ideation or thoughts of harming herself. 05/07/2019 Patient is currently lying in the bed comfortably. Abdominal pain is much improved now. Patient did have bowel movements with stool softeners yesterday. Currently being continued on MiraLAX. Pain is controlled with Dilaudid. Otherwise patient is currently on chemotherapy due to metastatic breast cancer. Pain medication will be transitioned to morphine 15 mg twice a day and limit IV pain medications. Has been afebrile. General surgery is following. No complaints of chest pain or shortness of breath. No nausea vomiting or diarrhea. 05/08/2019 Patient is still complaining of abdominal pain but able to tolerate oral diet. Abdominal pain radiating pain from thoracic compression fractures as per general surgery. Patient was started on oral morphine every 12 hours will be increased to every 8 hours. No fever no chills. Patient did not have any bowel movement last few days. MiraLAX is being continued. Anticipate discharge in next 24 hours with better pain control. 05/09/2019 Patient is sitting up in bed in no acute distress stating that she is feeling much better today. Some of her pain medications have been adjusted and she is having some better pain control. A CT scan was ordered of the abdomen with contrast and is currently pending at this time. A CA 27.29 and cancer antigen 153 was ordered and is currently pending at this time. Patient states that she is able to tolerate diet and has been having bowel movements. Will continue on current bowel regimen. Oncology is following. Currently patient denies any chest pain, shortness of breath, or palpitations. Patient is afebrile. Patient denies any nausea or vomiting and has been tolerating diet. Objective - Vital Signs Vital signs: Vital Signs Temp 98.7 F 05/09/19 12:05 Pulse 71 05/09/19 12:05 Resp 16 05/09/19 12:05 BP 96/61 05/09/19 12:05 Pulse Ox 97 05/09/19 12:05 Intake & Output 05/08/19 05/09/19 05/09/19 18:59 06:59 18:59 Intake Total 500 900 800 Balance 500 900 800 Weight 46.8 kg Intake: Intake, IV Titration 250 900 800 Amount Sodium Chloride 0.9% 1, 250 900 800 000 ml @ 100 mls/hr IV . Q10H [facility] Rx#:[id number] Oral 250 Other: Voiding Method Toilet Toilet # Voids 1 1 # Bowel Movements 1 2 - Exam GENERAL: The patient is alert and oriented x3, not in any acute distress. Well developed, well nourished. HEENT: Pupils are round and equally reacting to light. EOMI. No scleral icterus. No conjunctival pallor. Normocephalic, atraumatic. No pharyngeal erythema. No thyromegaly. CARDIOVASCULAR: S1 and S2 present. No murmurs, rubs, or gallops. PULMONARY: Chest is clear to auscultation, no wheezing or crackles. ABDOMEN: Soft, thin, nontender, normoactive bowel sounds heard MUSCULOSKELETAL: No joint swelling or deformity. EXTREMITIES: No cyanosis, clubbing, or pedal edema. NEUROLOGICAL: Gross neurological examination did not reveal any focal deficits. SKIN: No rashes. - Labs CBC & Chem 7: 05/08/19 09:08 05/09/19 07:09 Labs: Abnormal Lab Results - Last 24 Hours (Table) 05/09/19 Range/Units 07:09 Sodium 135 L (137-145) mmol/L BUN 3 L (7-17) mg/dL Calcium 8.1 L (8.4-10.2) mg/dL AST 10 L (14-36) U/L Total Protein 5.0 L (6.3-8.2) g/dL Albumin 2.5 L (3.5-5.0) g/dL Assessment and Plan Assessment: -epigastric abdominal pain and burning sensation probably secondary to peptic ulcer disease or gastritis, continue with Protonix -Possible partial small bowel obstruction secondary to constipation Will use her MiraLAX for that. Patient has been tolerating diet and last bowel movement was yesterday. Will continue with current bowel regimen. -Metastatic breast cancer continue her chemo regimen -mild hyponatremia hypovolemic: IV fluids will continue -Bilateral atelectasis incentive spirometry as there is no clinical evidence of pneumonia -DVT prophylaxis early ambulation Recommendations and discussion: Recommend to continue current medications, management, and symptomatic treatment. Surgery and oncology are following closely. Adjustments have been made to her pain medication regimen and will continue with this in the outpatient setting. Discussed with the patient about increasing activity as tolerated. CT of the abdomen pelvis was ordered and is currently pending as we are unable to obtain a report from the CT that was done last week in [place]. Will continue to monitor closely. Guarded prognosis. Further recommendations to follow. Discharge in 24 hours.
--- NOTE | 2019-05-09 18:05 | CT ---
EXAMINATION TYPE: CT abdomen pelvis w con DATE OF EXAM: 05/09/2019 COMPARISON: 01/25/2019, 05/02/2019 INDICATION: Metastatic breast cancer DLP: 383.10 mGycm, Automated exposure control for dose reduction was used. CONTRAST: 100 ml mL of Isovue 300. Study performed with Oral Contrast TECHNIQUE: Axial images were obtained from above the diaphragm to the pubic rami in the axial plane a t 5 mm thick sections. Reconstructed images are reviewed on the computer in the coronal plane. FINDINGS: Limited CT sections are obtained the lung bases. There is a small left pleural effusion. Small right pleural effusion is present with adjacent compressive atelectasis.. Small pericardial effusion is n oted. CT ABDOMEN: Liver: Normal Spleen: Normal Pancreas: Atrophic Adrenal glands: The adrenal glands are normal. Gallbladder: Surgically absent Kidneys: No masses are evident. No cysts are present. There is hydronephrosis of the right kidney wi th mild right hydroureter. Aorta: Vascular calcification is within the aorta. Inferior vena cava: Normal. CT PELVIS: There are multiple fluid-filled loops of bowel and colon. Small bowel loops are somewhat prominent wi th contrast. No definite obstruction is identified. There are loops of bowel which are incompletely d istended or lack oral contrast limiting their evaluation. Appendix: Not identified. Urinary bladder: Normal. Genitourinary structures: Uterus is not identified. Adnexal regions are clear. No free fluid is withi n the pelvis. Osseous structures: No suspicious lytic or sclerotic lesions. Hemangioma appears to be at T12. IMPRESSIONS: 1. Small pericardial effusion. 2. Bilateral small pleural effusions. 3. Hydronephrosis right kidney with mild right hydroureter. An obstructing etiology is not identified . 4. Dilated fluid filled small bowel loops and colon. Ileus and gastroenteritis could be considered. N o definite obstruction is identified.
[2019-05-09] MEDS: ZOLPIDEM 5 MG TAB PO SCH (22:13)
[2019-05-09] MEDS: ALPRAZolam 0.5 MG TAB PO PRN (22:13)
[2019-05-10 03:43] VITALS: TEMP 98.2
[2019-05-10] MEDS: SODIUM CHLORIDE 0.9% 1,000 ML IV SCH (05:41)
[2019-05-10] MEDS: XELODA 500 MG PO SCH (08:22)
[2019-05-10] MEDS: LACTULOSE 20 GM/30 ML CUP PO SCH (08:23)
[2019-05-10] MEDS: PANTOPRAZOLE 40 MG TABLET PO SCH (08:25)
[2019-05-10] MEDS: HEPARIN SODIUM,PORCINE 5,000 UNIT/ML 1 ML VIAL SQ SCH ×2 (08:25→08:27)
[2019-05-10] MEDS: POLYETHYLENE GLYCOL 3350 17 GM POWD.PACK PO SCH (08:25)
[2019-05-10] MEDS: DOCUSATE 100 MG CAP PO SCH (08:25)
[2019-05-10] MEDS: SENNOSIDES 8.6 MG TAB PO SCH (08:25)
[2019-05-10] MEDS: MYRBETRIQ (Mirabegron) 50 MG PO SCH (08:26)
[2019-05-10] MEDS: MORPHINE SULFATE IR 15 MG TABLET PO PRN (09:38)
--- NOTE | 2019-05-10 09:57 | P.PN ---
Subjective Progress Note Date: 05/10/19 Principal diagnosis: Met breast cancer, partial SBO/ileus from disease In f/u today pt states she is feeling ok, she slept good, her pain is controlled on current analgesic regimen. No fever, vomiting, she is tolerating oral intake in small amounts Objective - Vital Signs Vital signs: Vital Signs Temp 98.2 F 05/10/19 03:41 Pulse 76 05/10/19 03:41 Resp 16 05/10/19 03:41 BP 88/55 05/10/19 03:41 Pulse Ox 92 L 05/10/19 03:41 Intake & Output 05/09/19 05/10/19 05/10/19 18:59 06:59 18:59 Intake Total 800 1120 Balance 800 1120 Weight 46.8 kg Intake: Intake, IV Titration 800 400 Amount Sodium Chloride 0.9% 1, 800 400 000 ml @ 100 mls/hr IV . Q10H [facility] Rx#:[id number] Oral 720 Other: Voiding Method Toilet Toilet # Voids 1 # Bowel Movements 1 - Constitutional General appearance: Present: cooperative, no acute distress, thin - EENT Eyes: Present: anicteric sclerae, EOMI - Respiratory Details: respirations even and unlabored - Cardiovascular Details: skin warm and dry - Peripheral edema leg Peripheral Edema: bilateral: None - Gastrointestinal General gastrointestinal: Present: normal bowel sounds, soft - Neurologic Neurologic: Present: CNII-XII intact - Musculoskeletal Musculoskeletal: Present: strength equal bilaterally - Psychiatric Psychiatric: Present: A&O x's 3, appropriate affect, intact judgment & insight - Labs CBC & Chem 7: 05/08/19 09:08 05/10/19 07:42 Labs: Abnormal Lab Results - Last 24 Hours (Table) 05/09/19 Range/Units 07:09 CA 27-29 53.1 H (0.0-38.5) U/mL - Imaging and Cardiology CT scan - abdomen: report reviewed CT scan - pelvis: report reviewed Assessment and Plan (1) Abdominal pain Narrative/Plan: Pain from SOB/ileus from disease, improved with conservative mgmt. Pain controlled on fentanyl and MSIR, Rx for the same Bowel regimen for prevention of narcotic induced constipation. Current Visit: Yes Status: Chronic Priority: High Code(s): R10.9 - UNSPECIFIED ABDOMINAL PAIN SNOMED Code(s): 34936782 (2) Metastatic breast cancer Narrative/Plan: Dr. Reeves reviewed the results of patient's CT of the abdomen and pelvis. There are no significant visible changes on imaging. Patient does understand the nature of her disease and how it has the tendency to grow in sheets versus masses, which can make disease progression rather difficult to discern. Also, He reviewed if her recurrent SBO/ileus and multiple potential causes (scar tissue from surgery, treated disease, stable or progressive disease). Irregardless, patient has had significant difficulties tolerating the Xeloda therapy and she is on very low dose. Dr. Reeves discussed with her changing her regimen to intravenous chemotherapy, patient is agreeable. Patient will be scheduled for education in the outpatient setting and set up of her first treatment. All of her questions were answered. Current Visit: Yes Status: Chronic Priority: High Code(s): C50.919 - MALIGNANT NEOPLASM OF UNSP SITE OF UNSPECIFIED FEMALE BREAST SNOMED Code(s): 445711980 (3) S/P small bowel resection Current Visit: No Status: Chronic Priority: High Code(s): Z90.49 - ACQUIRED ABSENCE OF OTHER SPECIFIED PARTS OF DIGESTIVE TRACT SNOMED Code(s): 633893989849024 Plan: Doctor attests: I performed a history and physical examination of this patient, developed impression and plan of care. Discussed with dictator. I agree with dictators note, documented as a scribe.
[2019-05-10 11:38] VITALS: BP 120/70; PULSE 82
--- NOTE | 2019-05-10 11:39 | P.DS ---
Providers Date of admission: 05/03/19 01:41 Expected date of discharge: 05/10/19 Attending physician: Tessy Gonzales Consults: 05/03/19 02:48 Consult Physician Routine Consulting Provider: Salma Downey Consult Reason/Comments: Possible ileus verse bowel obstruction Do you want consulting provider notified?: Yes, Notify in am Placement Type Exists?: Yes 05/06/19 09:54 Consult Physician Stat Consulting Provider: Bjorn Reeves Consult Reason/Comments: ongoing chemo/familiar patient Do you want consulting provider notified?: Yes Primary care physician: Stated None Hospital Course: Final diagnosis -epigastric abdominal pain and burning sensation probably secondary to peptic ulcer disease or gastritis -Possible partial small bowel obstruction secondary to constipation -Metastatic breast cancer -mild hyponatremia hypovolemic -Bilateral atelectasis with no clinical evidence of pneumonia -DVT prophylaxis Discharge disposition Patient is being discharged in a stable condition with guarded prognosis to home and will follow-up with oncology in the outpatient setting upon discharge. Patient will continue with current bowel regimen and adjustments have been made to her pain medications. Total time taken is 35 minutes. History of present illness 68-year-old pleasant female with known history of breast cancer metastatic peritoneal metastasis on oral chemotherapy came in with complaints of diffuse abdominal pain and predominant abdominal pain burning sensation in the epigastric area severe. Patient last bowel movement was on Thursday. Patient denied any fever chills patient was having some nausea vomiting as well. Nausea improved patient is presently nothing by mouth. Abdominal CAT scan was obtained which showed right-sided hydronephrosis which appears to be old and patient had a J-tube placed in the past which was subsequently removed. Her abdominal pain is not consistent with pyelonephritis. Patient denied any dysuria. Patient had multiple abdominal surgeries in the past and the patient had partial small bowel obstruction bowel obstruction multiple times in the past. Patient is on fentanyl patch for pain. Presently on the same medication along with the hydromorphone for pain patient is less nauseous will start her on clear liquid diet. Surgery Was Consulted. 05/04/2019 Patient is sitting up in bed in no acute distress. Patient has not had a bowel movement since Thursday and continues to have some abdominal discomfort. Patient is being given MiraLAX. This morning patient is having some nausea and vomiting and has Zofran ordered. Patient is to maintain on a clear liquid diet with small sips at this time. Surgery is following. 05/05/2019 Patient is sitting up in bed in no acute distress. No acute overnight issues. Patient is having some nausea but is tolerating a clear liquid diet. Patient would like to advance her diet. Patient had a small loose bowel movement today. MiraLAX was ordered as scheduled instead of when necessary as she has not been receiving it for the last 2 days. Milk of magnesia along with lactulose has been ordered as well. Discussed with the patient about the need for a possible enema or suppository and she states she will try the lactulose at this time. Surgery is following. No surgical interventions at this time. 05/06/2019 Patient is sitting up in the bed in no acute distress. Patient states that she had a lot of cramping and dry heaving throughout the night and had requested her pain medication intervals to be changed to every 4 hours as opposed to every 6 as they were previously scheduled. Orders were placed. Patient states that she did have bowel movements after an enema last night. Patient states that she has no appetite currently and is slightly nauseated. Patient is requesting information about palliative care and also a consult with her oncologist Dr. Reeves as she is feeling that she is unsure of her treatment plans at this point and is questioning her quality of life at this time. Patient denies any suicidal ideation or thoughts of harming herself. 05/07/2019 Patient is currently lying in the bed comfortably. Abdominal pain is much improved now. Patient did have bowel movements with stool softeners yesterday. Currently being continued on MiraLAX. Pain is controlled with Dilaudid. Otherwise patient is currently on chemotherapy due to metastatic breast cancer. Pain medication will be transitioned to morphine 15 mg twice a day and limit IV pain medications. Has been afebrile. General surgery is following. No complaints of chest pain or shortness of breath. No nausea vomiting or diarrhea. 05/08/2019 Patient is still complaining of abdominal pain but able to tolerate oral diet. Abdominal pain radiating pain from thoracic compression fractures as per general surgery. Patient was started on oral morphine every 12 hours will be increased to every 8 hours. No fever no chills. Patient did not have any bowel movement last few days. MiraLAX is being continued. Anticipate discharge in next 24 hours with better pain control. 05/09/2019 Patient is sitting up in bed in no acute distress stating that she is feeling much better today. Some of her pain medications have been adjusted and she is having some better pain control. A CT scan was ordered of the abdomen with contrast and is currently pending at this time. A CA 27.29 and cancer antigen 153 was ordered and is currently pending at this time. Patient states that she is able to tolerate diet and has been having bowel movements. Will continue on current bowel regimen. Oncology is following. Currently patient denies any chest pain, shortness of breath, or palpitations. Patient is afebrile. Patient denies any nausea or vomiting and has been tolerating diet. 05/10/2019 Computed tomography scan of the abdomen was done yesterday showing no acute changes from previous. Oncology was following and patient will continue in the outpatient setting upon discharge. Patient is currently on oral chemotherapy regimen and will be following up with oncology in the outpatient setting to discuss possible IV therapy. She will continue the current bowel regimen and will follow-up with primary care provider upon discharge. Patient states that she is passing gas and having bowel movements and denies any abdominal discomfort at this time. Patient is afebrile with no reports of chest pain, shortness of breath, or palpitations. Patient denies any nausea or vomiting and has been tolerating diet. Encouraged the patient to continue ambulating and increasing activity as tolerated. On exam vital signs are stable. Temp is 98.2F, pulse is 82, respirations are 16, blood pressure is 120/70, oxygen saturation is 95% on room air. Cardio S1, S2 are present. Respiratory system shows diminished breath sounds at the bases with no wheezes or crackles noted. Abdomen is soft, thin, nontender. Nervous system shows no focal deficits. Please refer to medication reconciliation sheet for list of medications. Patient Condition at Discharge: Stable Plan - Discharge Summary Discharge Rx Participant: No New Discharge Prescriptions: New RX: fentaNYL 75MCG/HR PATCH [Duragesic 75MCG/HR] 75 mcg TRANSDERM Q72H 3 Days #1 patch Morphine Sulfate Ir [MSIR] 15 mg PO Q4H PRN 3 Days #18 tab PRN Reason: Pain RX: Lactulose [Cephulac] 20 gm PO BID #500 ml Docusate [Colace] 100 mg PO BID #30 capsule RX: Pantoprazole [Protonix] 40 mg PO BID 30 Days #60 tablet. RX: Sennosides [Senokot] 8.6 mg PO BID 30 Days #60 tab Continue RX: ALPRAZolam [Xanax] 0.5 mg PO TID PRN PRN Reason: Anxiety RX: Zolpidem Tartrate [Ambien Cr] 12.5 mg PO HS #3 tab RX: Polyethylene Glycol 3350 [Miralax] 17 gm PO BID RX: Mirabegron [Myrbetriq] 50 mg PO DAILY Discontinued RX: Capecitabine [Xeloda] 500 - 1,000 mg PO DIRECTED RX: fentaNYL 50MCG/HR PATCH [Duragesic 50MCG/HR] 1 patch TRANSDERM Q72H #2 patch Discharge Medication List RX: ALPRAZolam [Xanax] 0.5 mg PO TID PRN 01/02/19 [History] RX: Zolpidem Tartrate [Ambien Cr] 12.5 mg PO HS #3 tab 01/27/19 [Rx] RX: Polyethylene Glycol 3350 [Miralax] 17 gm PO BID 04/06/19 [History] RX: Mirabegron [Myrbetriq] 50 mg PO DAILY 05/03/19 [History] Docusate [Colace] 100 mg PO BID #30 capsule 05/09/19 [Rx] Morphine Sulfate Ir [MSIR] 15 mg PO Q4H PRN 3 Days #18 tab 05/09/19 [Rx] RX: Lactulose [Cephulac] 20 gm PO BID #500 ml 05/09/19 [Rx] RX: Pantoprazole [Protonix] 40 mg PO BID 30 Days #60 tablet. 05/09/19 [Rx] RX: Sennosides [Senokot] 8.6 mg PO BID 30 Days #60 tab 05/09/19 [Rx] RX: fentaNYL 75MCG/HR PATCH [Duragesic 75MCG/HR] 75 mcg TRANSDERM Q72H 3 Days #1 patch 05/09/19 [Rx] Follow up Appointment(s)/Referral(s): Bjorn Reeves MD [STAFF PHYSICIAN] - 05/13/19 8:15 am Patient Instructions/Handouts: Laxative, Stool Softeners (By mouth), Lactulose (By mouth), Morphine, Rapid Release (By mouth), Fentanyl (Absorbed through the skin), Pantoprazole (By mouth), Constipation (DC), Acute Abdominal Pain (DC), Bowel Obstruction (DC) Activity/Diet/Wound Care/Special Instructions: Activity Limited until follow-up Continue current bowel regimen Continue current diet Discharge Disposition: HOME SELF-CARE
== END 2019-05-10 11:40 | disposition home or self-care (01) | DRG 384 ==
LOC: 3NMEDONC 01:41
PROVIDERS: ADMIT Hospitalist; ATTEND Hospitalist
DX: K27.9 Peptic ulcer, site unspecified, unspecified as acute or chronic, without hemorrhage or perforation (principal); K56.600 Partial intestinal obstruction, unspecified as to cause; C78.6 Secondary malignant neoplasm of retroperitoneum and peritoneum; E44.1 Mild protein-calorie malnutrition; E87.1 Hypo-osmolality and hyponatremia; J98.11 Atelectasis; K56.7 Ileus, unspecified; M48.54XA Collapsed vertebra, not elsewhere classified, thoracic region, initial encounter for fracture; M48.56XA Collapsed vertebra, not elsewhere classified, lumbar region, initial encounter for fracture; N13.30 Unspecified hydronephrosis; Z68.1 Body mass index [BMI] 19.9 or less, adult; K29.70 Gastritis, unspecified, without bleeding; C50.919 Malignant neoplasm of unspecified site of unspecified female breast; K59.09 Other constipation; E86.1 Hypovolemia; E87.6 Hypokalemia; F41.9 Anxiety disorder, unspecified; G89.3 Neoplasm related pain (acute) (chronic); E03.9 Hypothyroidism, unspecified; Z90.710 Acquired absence of both cervix and uterus; Z79.811 Long term (current) use of aromatase inhibitors; Z79.899 Other long term (current) drug therapy; Z17.0 Estrogen receptor positive status [ER+]; Z90.49 Acquired absence of other specified parts of digestive tract; Z98.42 Cataract extraction status, left eye; Z98.41 Cataract extraction status, right eye; Z96.1 Presence of intraocular lens; Z80.1 Family history of malignant neoplasm of trachea, bronchus and lung
CPT/HCPCS: 71045; 74019; 74177; 80048; 80053; 84132; 85025; 86300; 93005

== ENCOUNTER 2019-06-17 00:03 | Inpatient (IN) | payer MEDICARE, OTHER ==
[2019-06-17] MEDS ORDERED: ONDANSETRON 4 MG/2 ML VIAL IVP STA (00:20)
[2019-06-17] MEDS ORDERED: MORPHINE SULFATE 4 MG/ML SYRINGE IV STA (00:20)
[2019-06-17] MEDS ORDERED: SODIUM CHLORIDE 0.9% 1,000 ML IV STA (00:20)
--- NOTE | 2019-06-17 00:27 | ED ---
Abdominal Pain HPI - General Chief Complaint: Abdominal Pain Stated Complaint: Abd pain Time Seen by Provider: 06/17/19 00:07 Source: patient, EMS Mode of arrival: EMS Limitations: no limitations - History of Present Illness Initial Comments: This patient is a 68-year-old woman coming to the hospital as a transfer from [facility]. She states that she had gone to the other hospital to be evaluated for a number symptoms that had come on starting yesterday. The patient began having coughing and was concerned she may be developing pneumonia. She started having some vomiting as well. At the other hospital, the workup was suspicious for bowel obstruction. The patient states that she has continued to have bowel movements. She does have some upper abdominal discomfort, but it is intermittent and very mild. MD Complaint: abdominal pain, other (Cough) Onset/Timin -: days(s) Location: LUQ, RUQ Radiation: none Migration to: no migration Consistency: constant Improves With: nothing Worsens With: nothing Associated Symptoms: vomiting, other (Off) - Related Data Home Medications Medication Instructions Recorded Confirmed ALPRAZolam [Xanax] 0.5 mg PO TID PRN 01/02/19 05/03/19 Polyethylene Glycol 3350 [Miralax] 17 gm PO BID 04/06/19 05/03/19 Mirabegron [Myrbetriq] 50 mg PO DAILY 05/03/19 05/03/19 Previous Rx's Medication Instructions Recorded Zolpidem Tartrate [Ambien Cr] 12.5 mg PO HS #3 tab 01/27/19 Docusate [Colace] 100 mg PO BID #30 capsule 05/09/19 Lactulose [Cephulac] 20 gm PO BID #500 ml 05/09/19 Morphine Sulfate Ir [MSIR] 15 mg PO Q4H PRN 3 Days #18 tab 05/09/19 Pantoprazole [Protonix] 40 mg PO BID 30 Days #60 tablet. 05/09/19 Sennosides [Senokot] 8.6 mg PO BID 30 Days #60 tab 05/09/19 fentaNYL 75MCG/HR PATCH [Duragesic 75 mcg TRANSDERM Q72H 3 Days #1 05/09/19 75MCG/HR] patch Allergies Allergy/AdvReac Type Severity Reaction Status Date / Time No Known Allergies Allergy Verified 06/17/19 00:10 Review of Systems ROS Statement: Those systems with pertinent positive or pertinent negative responses have been documented in the HPI. ROS Other: All systems not noted in ROS Statement are negative. Constitutional: Denies: fever, chills Respiratory: Reports: cough. Denies: dyspnea, wheezes Cardiovascular: Reports: chest pain Gastrointestinal: Reports: abdominal pain, vomiting. Denies: nausea, diarrhea, constipation, melena, hematochezia Genitourinary: Denies: dysuria, hematuria Musculoskeletal: Denies: back pain Skin: Denies: rash Neurological: Denies: headache, weakness Past Medical History Past Medical History: Cancer Additional Past Medical History / Comment(s): Metastatic lt breast cancer with metastases to peritoneal area. SIADH, Hydronephrosis, subclinical hypothyrodisim, protein calorie malnutrition,carpel tunnel right hand with sx. bilateral cataracts with sx, bowel obstruction History of Any Multi-Drug Resistant Organisms: None Reported Past Surgical History: Appendectomy, Cholecystectomy, Hysterectomy Additional Past Surgical History / Comment(s): Lumpectomy involving the left breast, previous history of abdominal surgery for small bowel obstruction x2, right uretheral stent with removal, removal was: 6-8 weeks ago, left subclavian stent secondary to stenosis Past Anesthesia/Blood Transfusion Reactions: No Reported Reaction Past Psychological History: Anxiety Smoking Status: Never smoker Past Alcohol Use History: None Reported Past Drug Use History: None Reported - Past Family History Father Family Medical History: Cancer Additional Family Medical History / Comment(s): lung cancer Mother Family Medical History: Cancer Additional Family Medical History / Comment(s): lung cancer General Exam Limitations: no limitations General appearance: alert, in no apparent distress Head exam: Present: atraumatic, normocephalic Eye exam: Present: normal appearance. Absent: scleral icterus, conjunctival injection ENT exam: Present: normal oropharynx Neck exam: Present: normal inspection, full ROM Respiratory exam: Present: normal lung sounds bilaterally. Absent: respiratory distress, wheezes, rales, rhonchi, stridor Cardiovascular Exam: Present: regular rate, normal rhythm, normal heart sounds. Absent: systolic murmur, diastolic murmur, rubs, gallop GI/Abdominal exam: Present: soft, hypoactive bowel sounds. Absent: distended, tenderness, guarding, rebound, rigid, mass Extremities exam: Present: normal inspection, normal capillary refill. Absent: pedal edema, calf tenderness Back exam: Present: normal inspection. Absent: CVA tenderness (R), CVA tenderness (L) Neurological exam: Present: alert Skin exam: Present: warm, dry, intact, normal color. Absent: rash Course Vital Signs 06/17/19 06/17/19 00:06 00:35 Temperature 98 F Pulse Rate 73 65 Respiratory 20 16 Rate Blood Pressure 147/86 128/85 O2 Sat by Pulse 98 99 Oximetry Medical Decision Making - Medical Decision Making This patient is a 68-year-old woman who was transferred here for admission to [facility] surgical evaluation for possible early small bowel obstruction. When I performed history and physical, the patient's symptoms more suggestive of respiratory infection. She is having cough with occasional vomiting. The patient has continued to have bowel movements and to have flatus. She does have some upper abdominal discomfort however. Given this the patient is admitted to have surgical consultation. - Lab Data Result diagrams: 06/17/19 00:31 06/17/19 00:31 Lab Results 06/17/19 06/17/19 Range/Units 00:31 00:31 WBC 5.1 (3.8-10.6) k/uL RBC 3.58 L (3.80-5.40) m/uL Hgb 10.9 L (11.4-16.0) gm/dL Hct 32.2 L (34.0-46.0) % MCV 89.9 (80.0-100.0) fL MCH 30.5 (25.0-35.0) pg MCHC 33.9 (31.0-37.0) g/dL RDW 15.9 H (11.5-15.5) % Plt Count 259 (150-450) k/uL Neutrophils % 66 % Lymphocytes % 22 % Monocytes % 10 % Eosinophils % 0 % Basophils % 1 % Neutrophils # 3.3 (1.3-7.7) k/uL Lymphocytes # 1.1 (1.0-4.8) k/uL Monocytes # 0.5 (0-1.0) k/uL Eosinophils # 0.0 (0-0.7) k/uL Basophils # 0.0 (0-0.2) k/uL Sodium 130 L (137-145) mmol/L Potassium 3.7 (3.5-5.1) mmol/L Chloride 99 (98-107) mmol/L Carbon Dioxide 23 (22-30) mmol/L Anion Gap 8 mmol/L BUN 17 (7-17) mg/dL Creatinine 0.40 L (0.52-1.04) mg/dL Est GFR (CKD-EPI)AfAm >90 (>60 ml/min/1.73 sqM) Est GFR (CKD-EPI)NonAf >90 (>60 ml/min/1.73 sqM) Glucose 115 H (74-99) mg/dL Calcium 8.3 L (8.4-10.2) mg/dL Total Bilirubin 0.4 (0.2-1.3) mg/dL AST 18 (14-36) U/L ALT 9 (4-34) U/L Alkaline Phosphatase 53 (38-126) U/L Total Protein 5.8 L (6.3-8.2) g/dL Albumin 3.1 L (3.5-5.0) g/dL Amylase <30 L (30-110) U/L Lipase 14 L (23-300) U/L Disposition Clinical Impression: Small bowel obstruction, Abdominal pain, Hyponatremia Disposition: ADMITTED IP TO THIS [facility] Condition: Fair Referrals: Nonstaff,Physician [REFERRING] - 1-2 days
[2019-06-17 00:47] LABS: Basophils % (A) 1 %; Eosinophils % (A) 0 %; HCT 32.2 % (34.0-46.0); HGB 10.9 gm/dL (11.4-16.0); Lymphocytes # (A) 1.1 k/uL (1.0-4.8); Lymphocytes % (A) 22 %; MCH 30.5 pg (25.0-35.0); MCHC 33.9 g/dL (31.0-37.0); MCV 89.9 fL (80.0-100.0); Mean Platelet Volume 6.9; Monocytes # (A) 0.5 k/uL (0-1.0); Monocytes % (A) 10 %; Neutrophils # (A) 3.3 k/uL (1.3-7.7); Neutrophils % (A) 66 %; Platelet Count 259 k/uL (150-450); RBC 3.58 m/uL (3.80-5.40); RDW 15.9 % (11.5-15.5); WBC 5.1 k/uL (3.8-10.6)
[2019-06-17 00:49] LABS: ALT 9 U/L (4-34); AST 18 U/L (14-36); African American GFR (CKD) >90 (>60 ml/min/1.73 sqM); Albumin 3.1 g/dL (3.5-5.0); Alkaline Phosphatase 53 U/L (38-126); Amylase <30 U/L (30-110); Anion Gap 8 mmol/L; Blood Urea Nitrogen 17 mg/dL (7-17); Calcium 8.3 mg/dL (8.4-10.2); Carbon Dioxide 23 mmol/L (22-30); Chloride 99 mmol/L (98-107); Glucose 115 mg/dL (74-99); Non-African American GFR(CKD) >90 (>60 ml/min/1.73 sqM); Potassium 3.7 mmol/L (3.5-5.1); Sodium 130 mmol/L (137-145); Total Bilirubin 0.4 mg/dL (0.2-1.3); Total Protein 5.8 g/dL (6.3-8.2)
[2019-06-17] MEDS ORDERED: ONDANSETRON 4 MG/2 ML VIAL IVP PRN ×2 (01:44→08:51)
[2019-06-17] MEDS ORDERED: ACETAMINOPHEN TAB 325 MG TAB PO PRN (01:44)
[2019-06-17] MEDS ORDERED: NALOXONE 0.4 MG/ML 1 ML VIAL IV PRN (01:44)
[2019-06-17] MEDS: SODIUM CHLORIDE 0.9% 1,000 ML IV SCH ×2 (01:55→14:06)
[2019-06-17] MEDS: MORPHINE SULFATE 4 MG/ML SYRINGE IV PRN ×2 (04:30→12:08)
[2019-06-17] MEDS: ALPRAZolam 0.5 MG TAB PO PRN (05:58)
[2019-06-17] MEDS: MORPHINE SULFATE IR 15 MG TABLET PO PRN ×3 (06:00→20:17)
[2019-06-17] MEDS: POLYETHYLENE GLYCOL 3350 17 GM POWD.PACK PO SCH ×3 (08:26→20:17)
[2019-06-17] MEDS: PANTOPRAZOLE 40 MG TABLET PO SCH ×3 (08:26→20:16)
[2019-06-17] MEDS: SENNOSIDES 8.6 MG TAB PO SCH ×3 (08:27→20:17)
[2019-06-17] MEDS: DOCUSATE 100 MG CAP PO SCH ×3 (08:27→20:16)
[2019-06-17] MEDS ORDERED: METOCLOPRAMIDE 5 MG/ML 2 ML VIAL IVP PRN (08:51)
--- NOTE | 2019-06-17 09:47 | XR ---
EXAMINATION TYPE: XR abdomen 2V DATE OF EXAM: 06/17/2019 9:25 AM CLINICAL HISTORY: Abdominal pain and vomiting TECHNIQUE: Upright and supine images of the abdomen were obtained. COMPARISON: 05/04/2019. FINDINGS: There is gaseous distention of the cecum up to 8.2 cm, upper limits of normal. No dilation of large or small bowel. Left hemidiaphragm elevation is chronic. Cholecystectomy clips are seen. S-s haped scoliosis of the thoracolumbar spine and diffuse osseous demineralization with moderate degener ative change. No suspicious calcification in the abdomen. Mild atherosclerosis. IMPRESSION: Nonobstructive bowel gas pattern.
[2019-06-17 10:03] VITALS: BMI 17.6
[2019-06-17] MEDS ORDERED: SODIUM CHLORIDE 0.9% 1,000 ML IV ONE (11:13)
[2019-06-17] MEDS ORDERED: POTASSIUM CHLORIDE ER 20 MEQ TAB.ER PO STA (11:14)
--- NOTE | 2019-06-17 12:31 | P.GSCN ---
<Teresita Weaver - Last Filed: 06/17/19 12:31> History of Present Illness Consult date: 06/17/19 Reason for Consult: SBO Requesting physician: Yemi Dorado History of present illness: CHIEF COMPLAINT: SBO HISTORY OF PRESENT ILLNESS: This is a 68 year old female well known to surgical services. She has a history of metastatic breast cancer and underwent small bowel resection secondary to obstruction in December 2018. Patient had previously been receiving oral chemotherapy. She states she was started on intravenous chemotherapy at the beginning of the month. She states her last chemotherapy w as on 06/09/2019. She was scheduled to have chemotherapy yesterday but did not feel well. She states she recently saw her primary care physician for an upper respiratory infection and was started on Zithromax and oral steroids. She continued to have a cough and went to [facility] to be evaluated. Patient states while she was there she began having some abdominal pain. Abdominal xray was completed at [facility] revealing possible small bowel obstruction. She was transferred to [facility] for further evaluation. Patient also reports she has been nauseous and vomiting for the past 2 days. She reports decreased oral intake. Reports normal bowel movement yesterday. She denies abdominal pain. States nausea and vomiting have resolved. She takes colace, senna, and miralax at home due to history of constipation. PAST MEDICAL HISTORY: See list. PAST SURGICAL HISTORY: See list. MEDICATIONS: See list. ALLERGIES: See list. SOCIAL HISTORY: No illicit drug use. REVIEW OF SYSTEMS: CONSTITUTIONAL: Denies fever or chills. HEENT: Denies blurred vision, vision changes, or eye pain. Denies hemoptysis ENDOCRINE: Denies heat or cold intolerance. CARDIOVASCULAR: Denies chest pain or pressure. RESPIRATORY: Reports cough and shortness of breath prior to hospitalization. GASTROINTESTINAL: See HPI for pertinent findings NEURO: Denies history of seizures. PSYCH: No depression or suicidal ideation HEMATOLOGIC: Denies bleeding disorders. LYMPHATIC: The patient denies any lumps and bumps around the neck. GENITOURINARY: Denies any blood in urine or increased urinary frequency. MUSCULOSKELETAL: Denies myalgias. Denies joint swelling. Denies decreased range of motion beyond patients baseline. SKIN: Denies pruitis. Denies rash. PHYSICAL EXAM: VITAL SIGNS: Currently stable. GENERAL: Well-developed in no acute distress. HEENT: No sclera icterus. Extraocular movements grossly intact. Moist buccal mucosa. Head is atraumatic, normocephalic. Hears conversational speech. No nasal drainage. NECK: Supple without lymphadenopathy. CHEST: Non-labored respirations and equal bilateral excursions. Right chest Mediport present. CARDIOVASCULAR: Regular rate with regular rhythm. Palpable 2+ radial pulses. ABDOMEN: Soft. Nondistended. Nontender. No signs of peritonitis. MUSCULOSKELETAL: No clubbing, cyanosis or edema. NEUROLOGIC: No focal or lateralizing signs. Cranial nerves II through XII grossly intact. PSYCH: Appropriate affect. Alert and oriented to person, place and time. SKIN: Well perfused. Good skin turgor. LABORATORY DATA: WBC 5.1. Hemoglobin 10.9. Platelet count 259. Sodium 130. Potassium 3.7. BUN 17. Creatinine 0.40. Bilirubin 0.4. AST 18. ALT 9. Amylase less than 30. Lipase 14. IMAGING: Abdominal 2 view x-ray: Gaseous distention of the cecum measuring 8.2 cm, upper limits of normal. No dilation of large or small bowel. Overall impression reveals nonobstructive bowel gas pattern. ASSESSMENT: 1. Abdominal pain, resolved 2. Nausea and vomiting, resolved 3. History of constipation 4. History of metastatic breast cancer, now receiving IV chemotherapy PLAN: -Repeat abdominal xray without evidence of small bowel obstruction -Begin clear liquid diet -Replace potassium. 20meq x1 now -Check magnesium level -Continue IV fluids. 1L NS bolus x 1 -Continue home bowel regimen of Miralax, Colace, and Senna Nurse practitioner note has been reviewed by physician. Signing provider agrees with the documented findings, assessment, and plan of care. Past Medical History Past Medical History: Cancer Additional Past Medical History / Comment(s): Metastatic lt breast cancer with m etastases to peritoneal area. SIADH, Hydronephrosis, subclinical hypothyrodisim, protein calorie malnutrition,carpel tunnel right hand with sx. bilateral cataracts with sx, bowel obstruction History of Any Multi-Drug Resistant Organisms: None Reported Past Surgical History: Appendectomy, Cholecystectomy, Hysterectomy Additional Past Surgical History / Comment(s): Lumpectomy involving the left breast, previous history of abdominal surgery for small bowel obstruction x2, right uretheral stent with removal, removal was: 6-8 weeks ago, left subclavian stent secondary to stenosis Past Anesthesia/Blood Transfusion Reactions: No Reported Reaction Past Psychological History: Anxiety Smoking Status: Never smoker Past Alcohol Use History: None Reported Past Drug Use History: None Reported - Past Family History Father Family Medical History: Cancer Additional Family Medical History / Comment(s): lung cancer Mother Family Medical History: Cancer Additional Family Medical History / Comment(s): lung cancer Medications and Allergies Home Medications Medication Instructions Recorded Confirmed Type ALPRAZolam [Xanax] 0.5 mg PO TID PRN 01/02/19 06/17/19 History Zolpidem Tartrate [Ambien Cr] 12.5 mg PO HS #3 tab 01/27/19 06/17/19 Rx Polyethylene Glycol 3350 [Miralax] 17 gm PO BID 04/06/19 06/17/19 History Mirabegron [Myrbetriq] 50 mg PO DAILY 05/03/19 06/17/19 History Docusate [Colace] 100 mg PO BID #30 capsule 05/09/19 06/17/19 Rx Lactulose [Cephulac] 20 gm PO BID #500 ml 05/09/19 06/17/19 Rx Morphine Sulfate Ir [MSIR] 15 mg PO Q4H PRN 3 Days #18 tab 05/09/19 06/17/19 Rx Pantoprazole [Protonix] 40 mg PO BID 30 Days #60 tablet.dr 05/09/19 06/17/19 Rx Sennosides [Senokot] 8.6 mg PO BID 30 Days #60 tab 05/09/19 06/17/19 Rx fentaNYL 75MCG/HR PATCH [Duragesic 75 mcg TRANSDERM Q72H 3 Days #1 05/09/19 06/17/19 Rx 75MCG/HR] patch Allergies Allergy/AdvReac Type Severity Reaction Status Date / Time No Known Allergies Allergy Verified 06/17/19 08:49 Surgical - Exam Vital Signs Temp Pulse Resp BP Pulse Ox 98 F 73 20 147/86 98 06/17/19 00:06 06/17/19 00:06 06/17/19 00:06 06/17/19 00:06 06/17/19 00:06 Results - Labs 06/17/19 00:31 06/17/19 00:31 Abnormal Lab Results - Last 24 Hours (Table) 06/17/19 06/17/19 Range/Units 00:31 00:31 RBC 3.58 L (3.80-5.40) m/uL Hgb 10.9 L (11.4-16.0) gm/dL Hct 32.2 L (34.0-46.0) % RDW 15.9 H (11.5-15.5) % Sodium 130 L (137-145) mmol/L Creatinine 0.40 L (0.52-1.04) mg/dL Glucose 115 H (74-99) mg/dL Calcium 8.3 L (8.4-10.2) mg/dL Total Protein 5.8 L (6.3-8.2) g/dL Albumin 3.1 L (3.5-5.0) g/dL Amylase <30 L (30-110) U/L Lipase 14 L (23-300) U/L Diabetes panel 06/17/19 Range/Units 00:31 Sodium 130 L (137-145) mmol/L Potassium 3.7 (3.5-5.1) mmol/L Chloride 99 (98-107) mmol/L Carbon Dioxide 23 (22-30) mmol/L BUN 17 (7-17) mg/dL Creatinine 0.40 L (0.52-1.04) mg/dL Glucose 115 H (74-99) mg/dL Calcium 8.3 L (8.4-10.2) mg/dL AST 18 (14-36) U/L ALT 9 (4-34) U/L Alkaline Phosphatase 53 (38-126) U/L Total Protein 5.8 L (6.3-8.2) g/dL Albumin 3.1 L (3.5-5.0) g/dL Calcium panel 06/17/19 Range/Units 00:31 Calcium 8.3 L (8.4-10.2) mg/dL Albumin 3.1 L (3.5-5.0) g/dL Pituitary panel 06/17/19 Range/Units 00:31 Sodium 130 L (137-145) mmol/L Potassium 3.7 (3.5-5.1) mmol/L Chloride 99 (98-107) mmol/L Carbon Dioxide 23 (22-30) mmol/L BUN 17 (7-17) mg/dL Creatinine 0.40 L (0.52-1.04) mg/dL Glucose 115 H (74-99) mg/dL Calcium 8.3 L (8.4-10.2) mg/dL Adrenal panel 06/17/19 Range/Units 00:31 Sodium 130 L (137-145) mmol/L Potassium 3.7 (3.5-5.1) mmol/L Chloride 99 (98-107) mmol/L Carbon Dioxide 23 (22-30) mmol/L BUN 17 (7-17) mg/dL Creatinine 0.40 L (0.52-1.04) mg/dL Glucose 115 H (74-99) mg/dL Calcium 8.3 L (8.4-10.2) mg/dL Total Bilirubin 0.4 (0.2-1.3) mg/dL AST 18 (14-36) U/L ALT 9 (4-34) U/L Alkaline Phosphatase 53 (38-126) U/L Total Protein 5.8 L (6.3-8.2) g/dL Albumin 3.1 L (3.5-5.0) g/dL <Salma Downey - Last Filed: 06/17/19 16:09> History of Present Illness History of present illness: Abdominal x-ray from [place] including today reviewed. No evidence of bow el obstruction. Diffuse gas pattern are noted. This is my personal interpretation. Patient reports abdominal pain from chronic cough. She is passing flatus. She is having bowel movements. May advance to a regular diet. Correction of electrolytes including low sodium, low potassium, low magnesium. Anticipated discharge upon correction of electrolyte dyscrasias Follow-up as needed Surgical - Exam Vital Signs Temp Pulse Resp BP Pulse Ox 98 F 73 20 147/86 98 06/17/19 00:06 06/17/19 00:06 06/17/19 00:06 06/17/19 00:06 06/17/19 00:06 Results - Labs 06/17/19 00:31 06/17/19 00:31 Abnormal Lab Results - Last 24 Hours (Table) 06/17/19 06/17/19 06/17/19 Range/Units 00:31 00:31 00:31 RBC 3.58 L (3.80-5.40) m/uL Hgb 10.9 L (11.4-16.0) gm/dL Hct 32.2 L (34.0-46.0) % RDW 15.9 H (11.5-15.5) % Sodium 130 L (137-145) mmol/L Creatinine 0.40 L (0.52-1.04) mg/dL Glucose 115 H (74-99) mg/dL Calcium 8.3 L (8.4-10.2) mg/dL Magnesium 1.5 L (1.6-2.3) mg/dL Total Protein 5.8 L (6.3-8.2) g/dL Albumin 3.1 L (3.5-5.0) g/dL Amylase <30 L (30-110) U/L Lipase 14 L (23-300) U/L Diabetes panel 06/17/19 Range/Units 00:31 Sodium 130 L (137-145) mmol/L Potassium 3.7 (3.5-5.1) mmol/L Chloride 99 (98-107) mmol/L Carbon Dioxide 23 (22-30) mmol/L BUN 17 (7-17) mg/dL Creatinine 0.40 L (0.52-1.04) mg/dL Glucose 115 H (74-99) mg/dL Calcium 8.3 L (8.4-10.2) mg/dL AST 18 (14-36) U/L ALT 9 (4-34) U/L Alkaline Phosphatase 53 (38-126) U/L Total Protein 5.8 L (6.3-8.2) g/dL Albumin 3.1 L (3.5-5.0) g/dL Calcium panel 06/17/19 Range/Units 00:31 Calcium 8.3 L (8.4-10.2) mg/dL Albumin 3.1 L (3.5-5.0) g/dL Pituitary panel 06/17/19 Range/Units 00:31 Sodium 130 L (137-145) mmol/L Potassium 3.7 (3.5-5.1) mmol/L Chloride 99 (98-107) mmol/L Carbon Dioxide 23 (22-30) mmol/L BUN 17 (7-17) mg/dL Creatinine 0.40 L (0.52-1.04) mg/dL Glucose 115 H (74-99) mg/dL Calcium 8.3 L (8.4-10.2) mg/dL Adrenal panel 06/17/19 Range/Units 00:31 Sodium 130 L (137-145) mmol/L Potassium 3.7 (3.5-5.1) mmol/L Chloride 99 (98-107) mmol/L Carbon Dioxide 23 (22-30) mmol/L BUN 17 (7-17) mg/dL Creatinine 0.40 L (0.52-1.04) mg/dL Glucose 115 H (74-99) mg/dL Calcium 8.3 L (8.4-10.2) mg/dL Total Bilirubin 0.4 (0.2-1.3) mg/dL AST 18 (14-36) U/L ALT 9 (4-34) U/L Alkaline Phosphatase 53 (38-126) U/L Total Protein 5.8 L (6.3-8.2) g/dL Albumin 3.1 L (3.5-5.0) g/dL
[2019-06-17] MEDS: MAGNESIUM SULFATE-D5W PMX 1 GM in DEXTROSE/WATER 1 100ML.BAG IVPB SCH ×3 (14:02→17:55)
[2019-06-17] MEDS ORDERED: IPRATROPIUM-ALBUTEROL 3 ML NEB INHALATION PRN (15:30)
--- NOTE | 2019-06-17 15:40 | P.HPIM ---
History of Present Illness Patient is a pleasant 68-year-old female was sent in here because of a possible partial small bowel obstruction patient had bowel movements yesterday and patient has good bowel sounds abdominal x-ray did not show any obstructive bowel gas pattern. Patient does have a history of metastatic breast cancer is on multiple medications that is opiates for Pain. Patient is receiving palliative chemotherapy at this time patient may leave and to outside hospital for not feeling well has with a cough which has been going on since last Thursday nausea and vomiting. Patient denied any obvious fever but although patient has some flulike symptoms. Chest x-ray did not show any significant abnormality at the other hospital. Patient is being treated for URI with azithromycin and oral steroids. Patient is not a smoker. Physical exam showed significant rhonchi bilaterally. Patient takes multivitamin and medications for constipation. Opiates. Review of Systems REVIEW OF SYSTEMS: CONSTITUTIONAL: No fever, no malaise, no fatigue. HEENT: No recent visual problems or hearing problems. Denied any sore throat. CARDIOVASCULAR: No chest pain, orthopnea, PND, no palpitations, no syncope. PULMONARY: As mentioned in HPI GASTROINTESTINAL: As mentioned in HPI NEUROLOGICAL: No headaches, no weakness, no numbness. HEMATOLOGICAL: Denies any bleeding or petechiae. GENITOURINARY: Denies any burning micturition, frequency, or urgency. MUSCULOSKELETAL/RHEUMATOLOGICAL: Denies any joint pain, swelling, or any muscle pain. ENDOCRINE: Denies any polyuria or polydipsia. The rest of the 14-point review of systems is negative. Past Medical History Past Medical History: Cancer Additional Past Medical History / Comment(s): Metastatic lt breast cancer with metastases to peritoneal area. SIADH, Hydronephrosis, subclinical hypothyrodisim, protein calorie malnutrition,carpel tunnel right hand with sx. bilateral cataracts with sx, bowel obstruction History of Any Multi-Drug Resistant Organisms: None Reported Past Surgical History: Appendectomy, Cholecystectomy, Hysterectomy Additional Past Surgical History / Comment(s): Lumpectomy involving the left breast, previous history of abdominal surgery for small bowel obstruction x2, right uretheral stent with removal, removal was: 6-8 weeks ago, left subclavian stent secondary to stenosis Past Anesthesia/Blood Transfusion Reactions: No Reported Reaction Past Psychological History: Anxiety Smoking Status: Never smoker Past Alcohol Use History: None Reported Past Drug Use History: None Reported - Past Family History Father Family Medical History: Cancer Additional Family Medical History / Comment(s): lung cancer Mother Family Medical History: Cancer Additional Family Medical History / Comment(s): lung cancer Medications and Allergies Home Medications Medication Instructions Recorded Confirmed Type ALPRAZolam [Xanax] 0.5 mg PO TID PRN 01/02/19 06/17/19 History Zolpidem Tartrate [Ambien Cr] 12.5 mg PO HS #3 tab 01/27/19 06/17/19 Rx Polyethylene Glycol 3350 [Miralax] 17 gm PO BID 04/06/19 06/17/19 History Mirabegron [Myrbetriq] 50 mg PO DAILY 05/03/19 06/17/19 History Docusate [Colace] 100 mg PO BID #30 capsule 05/09/19 06/17/19 Rx Lactulose [Cephulac] 20 gm PO BID #500 ml 05/09/19 06/17/19 Rx Morphine Sulfate Ir [MSIR] 15 mg PO Q4H PRN 3 Days #18 tab 05/09/19 06/17/19 Rx Pantoprazole [Protonix] 40 mg PO BID 30 Days #60 tablet.dr 05/09/19 06/17/19 Rx Sennosides [Senokot] 8.6 mg PO BID 30 Days #60 tab 05/09/19 06/17/19 Rx fentaNYL 75MCG/HR PATCH [Duragesic 75 mcg TRANSDERM Q72H 3 Days #1 05/09/19 06/17/19 Rx 75MCG/HR] patch Allergies Allergy/AdvReac Type Severity Reaction Status Date / Time No Known Allergies Allergy Verified 06/17/19 08:49 Physical Exam Vitals: Vital Signs Temp Pulse Pulse Resp BP BP Pulse Ox 06/17/19 11:57 97.6 F 58 L 18 105/65 98 06/17/19 04:57 98 F 67 16 124/79 97 06/17/19 02:20 97.9 F 84 16 142/90 98 06/17/19 01:53 64 18 123/77 98 06/17/19 00:35 65 16 128/85 99 06/17/19 00:06 98 F 73 20 147/86 98 Intake and Output 06/17/19 06/17/19 06/17/19 06:59 14:59 22:59 Intake Total 720 999 Balance 720 999 Intake: Intake, IV Titration 720 999 Amount Sodium Chloride 0.9% 1, 720 000 ml @ 90 mls/hr IV . Q11H7M [facility] Rx#:[id number] Sodium Chloride 0.9% 1, 999 000 ml @ 999 mls/hr IV . Q1H1M [facility] Rx#:[id number] Oral 0 Other: Voiding Method Toilet # Voids 1 2 Weight 45.359 kg 45.359 kg PHYSICAL EXAMINATION: GENERAL: The patient is alert and oriented x3, not in any acute distress. Well developed, well nourished. HEENT: Pupils are round and equally reacting to light. EOMI. No scleral icterus. No conjunctival pallor. Normocephalic, atraumatic. No pharyngeal erythema. No thyromegaly. CARDIOVASCULAR: S1 and S2 present. No murmurs, rubs, or gallops. PULMONARY: Diffuse bilateral rhonchi ABDOMEN: Soft, nontender, nondistended, normoactive bowel sounds. No palpable organomegaly. MUSCULOSKELETAL: No joint swelling or deformity. EXTREMITIES: No cyanosis, clubbing, or pedal edema. NEUROLOGICAL: Gross neurological examination did not reveal any focal deficits. SKIN: No rashes. Results CBC & Chem 7: 06/17/19 00:31 06/17/19 00:31 Labs: Abnormal Lab Results - Last 24 Hours (Table) 06/17/19 06/17/19 06/17/19 Range/Units 00:31 00:31 00:31 RBC 3.58 L (3.80-5.40) m/uL Hgb 10.9 L (11.4-16.0) gm/dL Hct 32.2 L (34.0-46.0) % RDW 15.9 H (11.5-15.5) % Sodium 130 L (137-145) mmol/L Creatinine 0.40 L (0.52-1.04) mg/dL Glucose 115 H (74-99) mg/dL Calcium 8.3 L (8.4-10.2) mg/dL Magnesium 1.5 L (1.6-2.3) mg/dL Total Protein 5.8 L (6.3-8.2) g/dL Albumin 3.1 L (3.5-5.0) g/dL Amylase <30 L (30-110) U/L Lipase 14 L (23-300) U/L Thrombosis Risk Factor Assmnt - Choose All That Apply Any of the Below Risk Factors Present?: No Other Risk Factors: Yes Each Risk Factor Represents 2 Points: Age 61-74 years, Malignancy Other congenital or acquired thrombophilia - If yes, enter type in comment: No Thrombosis Risk Factor Assessment Total Risk Factor Score: 4 Thrombosis Risk Factor Assessment Level: Moderate Risk Assessment and Plan Plan: -Epigastric abdominal pain and nausea vomiting patient still is bit nauseous abdominal pain resolved constipation resolved patient may have some stress ulcerations for which we're patient will be continued on Protonix -Possible severe tracheobronchitis can be bacterial post viral. Patient will be started on doxycycline patient was started on inhalational treatments needed -Breast cancer receiving palliative chemotherapy, for cancer pain patient is on multiple opiates which will be resumed along with her home regimen of MiraLAX Colace and senna. -Hyponatremia unsure of the etiology most probably SIADH from pain or cancer can be hypovolemic hyponatremia because of which I'll give her a fluid challenge with IV fluids and recheck the basic metabolic profile tomorrow -Generalized weakness significant. PT and OT evaluation to assess appropriateness of going home -DVT prophylaxis with enoxaparin
[2019-06-17] MEDS: IPRATROPIUM-ALBUTEROL 3 ML NEB INHALATION SCH (20:19)
[2019-06-17] MEDS: DOXYCYCLINE 100 MG CAP PO SCH (20:55)
[2019-06-17] MEDS ORDERED: ZOLPIDEM 5 MG TAB PO SCH (21:00)
[2019-06-18] MEDS: SODIUM CHLORIDE 0.9% 1,000 ML IV SCH ×2 (01:00→13:00)
[2019-06-18] MEDS: ALPRAZolam 0.5 MG TAB PO PRN ×2 (01:24→11:12)
[2019-06-18] MEDS: IPRATROPIUM-ALBUTEROL 3 ML NEB INHALATION SCH ×3 (05:39→12:23)
[2019-06-18 07:46] LABS: African American GFR (CKD) >90 (>60 ml/min/1.73 sqM); Anion Gap 7 mmol/L; Blood Urea Nitrogen 10 mg/dL (7-17); Calcium 7.8 mg/dL (8.4-10.2); Carbon Dioxide 23 mmol/L (22-30); Chloride 103 mmol/L (98-107); Glucose 89 mg/dL (74-99); Non-African American GFR(CKD) >90 (>60 ml/min/1.73 sqM); Potassium 3.5 mmol/L (3.5-5.1); Sodium 133 mmol/L (137-145)
[2019-06-18] MEDS: POLYETHYLENE GLYCOL 3350 17 GM POWD.PACK PO SCH (08:03)
[2019-06-18] MEDS: DOXYCYCLINE 100 MG CAP PO SCH (08:03)
[2019-06-18] MEDS: PANTOPRAZOLE 40 MG TABLET PO SCH (08:04)
[2019-06-18] MEDS: MORPHINE SULFATE IR 15 MG TABLET PO PRN (08:04)
[2019-06-18] MEDS: SENNOSIDES 8.6 MG TAB PO SCH (08:04)
[2019-06-18] MEDS: DOCUSATE 100 MG CAP PO SCH (08:04)
[2019-06-18 08:07] LABS: Anisocytosis Slight; Basophils # (A) 0.1 k/uL (0-0.2); Basophils % (A) 1 %; Eosinophils # (A) 0.1 k/uL (0-0.7); Eosinophils % (A) 1 %; HCT 30.1 % (34.0-46.0); HGB 9.7 gm/dL (11.4-16.0); Lymphocytes # (A) 1.7 k/uL (1.0-4.8); Lymphocytes % (A) 36 %; MCH 29.9 pg (25.0-35.0); MCHC 32.2 g/dL (31.0-37.0); MCV 92.7 fL (80.0-100.0); Mean Platelet Volume 7.3; Monocytes # (A) 0.6 k/uL (0-1.0); Monocytes % (A) 12 %; Neutrophils # (A) 2.3 k/uL (1.3-7.7); Neutrophils % (A) 48 %; Platelet Count 225 k/uL (150-450); RBC 3.25 m/uL (3.80-5.40); RDW 16.3 % (11.5-15.5); WBC 4.8 k/uL (3.8-10.6)
[2019-06-18] MEDS ORDERED: ENOXAPARIN 40 MG/0.4 ML SYRINGE SQ SCH (09:00)
--- NOTE | 2019-06-18 12:20 | P.PN ---
Progress Note - Text Progress Note Date: 06/18/19 The patient's resting comfortably in her bed. She is tolerating a diet. She has no significant abdominal pain. On exam her vital signs are stable. Her abdomen soft. Resolving small bowel obstruction. Patient most likely discharge home today.
[2019-06-18 12:22] VITALS: BP 100/60; RESP 17; TEMP 98.4
[2019-06-18 12:34] VITALS: PULSE 74
--- NOTE | 2019-06-18 16:10 | P.PN ---
Subjective Patient is a pleasant 68-year-old female was sent in here because of a possible partial small bowel obstruction patient had bowel movements yesterday and patient has good bowel sounds abdominal x-ray did not show any obstructive bowel gas pattern. Patient does have a history of metastatic breast cancer is on multiple medications that is opiates for Pain. Patient is receiving palliative chemotherapy at this time patient may leave and to outside hospital for not feeling well has with a cough which has been going on since last Thursday nausea and vomiting. Patient denied any obvious fever but although patient has some flulike symptoms. Chest x-ray did not show any significant abnormality at the other hospital. Patient is being treated for URI with azithromycin and oral steroids. Patient is not a smoker. 06/18/2019 Patient bronchitis improved shortness of breath improved is still coughing pain is better patient wanted to go home patient is cleared from general surgery perspective as well patient did move her bowel. Patient has a bowel regimen for constipation at home. Patient is being discharged today PHYSICAL EXAMINATION: GENERAL: The patient is alert and oriented x3, not in any acute distress. Well developed, well nourished. HEENT: Pupils are round and equally reacting to light. EOMI. No scleral icterus. No conjunctival pallor. Normocephalic, atraumatic. No pharyngeal erythema. No thyromegaly. CARDIOVASCULAR: S1 and S2 present. No murmurs, rubs, or gallops. PULMONARY: Chest is clear to auscultation, no wheezing or crackles. ABDOMEN: Soft, nontender, nondistended, normoactive bowel sounds. No palpable organomegaly. MUSCULOSKELETAL: No joint swelling or deformity. EXTREMITIES: No cyanosis, clubbing, or pedal edema. NEUROLOGICAL: Gross neurological examination did not reveal any focal deficits. SKIN: No rashes. Assessment and Plan Plan: -Peptic ulcer disease -Constipation -Possible severe tracheobronchitis can be bacterial post viral. P -Breast cancer receiving palliative chemotherapy, -Hyponatremia unsure of the etiology most probably SIADH from pain or cancer can be hypovolemic hyponatremia there is some improvement with IV fluids Objective - Vital Signs Vital signs: Vital Signs Temp 98.4 F 06/18/19 12:22 Pulse 74 06/18/19 12:34 Resp 17 06/18/19 12:22 BP 100/60 06/18/19 12:22 Pulse Ox 95 06/18/19 12:22 Intake & Output 06/17/19 06/18/19 06/18/19 18:59 06:59 18:59 Intake Total 999 990 720 Balance 999 990 720 Weight 45.359 kg Intake: Intake, IV Titration 999 990 720 Amount Sodium Chloride 0.9% 1, 990 720 000 ml @ 90 mls/hr IV . Q11H7M [facility] Rx#:[id number] Sodium Chloride 0.9% 1, 999 000 ml @ 999 mls/hr IV . Q1H1M [facility] Rx#:[id number] Other: Voiding Method Toilet Toilet # Voids 2 2 - Labs CBC & Chem 7: 06/18/19 06:19 06/18/19 06:19 Labs: Abnormal Lab Results - Last 24 Hours (Table) 06/18/19 06/18/19 Range/Units 06:19 06:19 RBC 3.25 L (3.80-5.40) m/uL Hgb 9.7 L (11.4-16.0) gm/dL Hct 30.1 L (34.0-46.0) % RDW 16.3 H (11.5-15.5) % Sodium 133 L (137-145) mmol/L Creatinine 0.50 L (0.52-1.04) mg/dL Calcium 7.8 L (8.4-10.2) mg/dL
--- NOTE | 2019-06-28 17:43 | P.DS ---
Providers Date of admission: 06/17/19 01:47 Expected date of discharge: 06/18/19 Attending physician: Tessy Gonzales Consults: 06/17/19 01:44 Consult Physician Routine Consulting Provider: Salma Downey Consult Reason/Comments: Your patient. Possible early small bowel obstruction. Do you want consulting provider notified?: Yes Primary care physician: Demarco Stroud MD Hospital Course: Please refer to the progress note from same day Patient Condition at Discharge: Fair Plan - Discharge Summary Discharge Rx Participant: Yes New Discharge Prescriptions: New Doxycycline [Vibramycin] 100 mg PO BID #10 cap Albuterol Inhaler [Ventolin Hfa Inhaler] 1 - 2 puff INHALATION Q6HR PRN #1 inhaler PRN Reason: Shortness Of Breath Or Wheezing Continue ALPRAZolam [Xanax] 0.5 mg PO TID PRN PRN Reason: Anxiety Zolpidem Tartrate [Ambien Cr] 12.5 mg PO HS #3 tab Polyethylene Glycol 3350 [Miralax] 17 gm PO BID Mirabegron [Myrbetriq] 50 mg PO DAILY fentaNYL 75MCG/HR PATCH [Duragesic 75MCG/HR] 75 mcg TRANSDERM Q72H 3 Days #1 patch Morphine Sulfate Ir [MSIR] 15 mg PO Q4H PRN 3 Days #18 tab PRN Reason: Pain Lactulose [Cephulac] 20 gm PO BID #500 ml Docusate [Colace] 100 mg PO BID #30 capsule Pantoprazole [Protonix] 40 mg PO BID 30 Days #60 tablet.dr Martinez [Senokot] 8.6 mg PO BID 30 Days #60 tab Discharge Medication List ALPRAZolam [Xanax] 0.5 mg PO TID PRN 01/02/19 [History] Zolpidem Tartrate [Ambien Cr] 12.5 mg PO HS #3 tab 01/27/19 [Rx] Polyethylene Glycol 3350 [Miralax] 17 gm PO BID 04/06/19 [History] Mirabegron [Myrbetriq] 50 mg PO DAILY 05/03/19 [History] Docusate [Colace] 100 mg PO BID #30 capsule 05/09/19 [Rx] Lactulose [Cephulac] 20 gm PO BID #500 ml 05/09/19 [Rx] Morphine Sulfate Ir [MSIR] 15 mg PO Q4H PRN 3 Days #18 tab 05/09/19 [Rx] Pantoprazole [Protonix] 40 mg PO BID 30 Days #60 tablet. 05/09/19 [Rx] Sennosides [Senokot] 8.6 mg PO BID 30 Days #60 tab 05/09/19 [Rx] fentaNYL 75MCG/HR PATCH [Duragesic 75MCG/HR] 75 mcg TRANSDERM Q72H 3 Days #1 patch 05/09/19 [Rx] Albuterol Inhaler [Ventolin Hfa Inhaler] 1 - 2 puff INHALATION Q6HR PRN #1 inhaler 06/18/19 [Rx] Doxycycline [Vibramycin] 100 mg PO BID #10 cap 06/18/19 [Rx] Follow up Appointment(s)/Referral(s): Nonstaff,Physician [REFERRING] - 3 Days Patient Instructions/Handouts: Doxycycline (By mouth), Albuterol (By breathing), Hyponatremia (DC), Acute Abdominal Pain (DC), Acute Cough (GEN) Discharge Disposition: HOME SELF-CARE
== END 2019-06-18 15:17 | disposition home or self-care (01) | DRG 384 ==
LOC: EC 00:03 → 5NMEDONC 01:47
PROVIDERS: ADMIT Hospitalist; ATTEND Hospitalist
DX: K27.9 Peptic ulcer, site unspecified, unspecified as acute or chronic, without hemorrhage or perforation (principal); E22.2 Syndrome of inappropriate secretion of antidiuretic hormone; C78.6 Secondary malignant neoplasm of retroperitoneum and peritoneum; E46 Unspecified protein-calorie malnutrition; Z68.1 Body mass index [BMI] 19.9 or less, adult; C50.919 Malignant neoplasm of unspecified site of unspecified female breast; J40 Bronchitis, not specified as acute or chronic; E86.1 Hypovolemia; F41.9 Anxiety disorder, unspecified; G89.3 Neoplasm related pain (acute) (chronic); E03.9 Hypothyroidism, unspecified; R05 Cough; K59.00 Constipation, unspecified; Z79.899 Other long term (current) drug therapy; Z90.710 Acquired absence of both cervix and uterus; Z90.49 Acquired absence of other specified parts of digestive tract; Z98.49 Cataract extraction status, unspecified eye; Z96.1 Presence of intraocular lens; Z80.1 Family history of malignant neoplasm of trachea, bronchus and lung
CPT/HCPCS: 36415; 74019; 80048; 80053; 82150; 83690; 83735; 85025; 87502; 94640; 96361; 96374; 96375; 99285

== ENCOUNTER 2019-08-07 00:32 | Emergency (ER) | payer MEDICARE, OTHER ==
--- NOTE | 2019-08-07 01:19 | ED ---
General Adult HPI - General Chief complaint: Recheck/Abnormal Lab/Rx Stated complaint: Sepsis Time Seen by Provider: 08/07/19 00:56 Source: patient, RN/MD, EMS Mode of arrival: EMS Limitations: physical limitation - History of Present Illness Initial comments: This patient is a 68-year-old woman coming here as a transfer from [facility]. She does have history of stage IV metastatic lung cancer. The patient had gone to the other hospital to be evaluated for approximately 3 days of right sided retro-orbital headache that is been getting progressively worse. She states that the pain is moderate to severe intensity, aching, and she has not noted worsening or relieving factors. She does note that she had undergone chemotherapy last week. When she went to the other hospital she was found to be febrile but they could not find a source. The patient is not neutropenic. While at the other hospital she did receive dose of Zosyn and vancomycin, and is transferred here. Onset/Timin -: days(s) Location: head Radiation: non-radiation Quality: aching Consistency: constant Improves with: none Worsens with: none Associated Symptoms: headaches - Related Data Home Medications Medication Instructions Recorded Confirmed ALPRAZolam [Xanax] 0.5 mg PO TID PRN 01/02/19 06/17/19 Polyethylene Glycol 3350 [Miralax] 17 gm PO BID 04/06/19 06/17/19 Mirabegron [Myrbetriq] 50 mg PO DAILY 05/03/19 06/17/19 Previous Rx's Medication Instructions Recorded Zolpidem Tartrate [Ambien Cr] 12.5 mg PO HS #3 tab 01/27/19 Docusate [Colace] 100 mg PO BID #30 capsule 05/09/19 Lactulose [Cephulac] 20 gm PO BID #500 ml 05/09/19 Morphine Sulfate Ir [MSIR] 15 mg PO Q4H PRN 3 Days #18 tab 05/09/19 Pantoprazole [Protonix] 40 mg PO BID 30 Days #60 tablet.dr 05/09/19 Sennosides [Senokot] 8.6 mg PO BID 30 Days #60 tab 05/09/19 fentaNYL 75MCG/HR PATCH [Duragesic 75 mcg TRANSDERM Q72H 3 Days #1 05/09/19 75MCG/HR] patch Albuterol Inhaler [Ventolin Hfa 1 - 2 puff INHALATION Q6HR PRN #1 06/18/19 Inhaler] inhaler Doxycycline [Vibramycin] 100 mg PO BID #10 cap 06/18/19 Allergies Allergy/AdvReac Type Severity Reaction Status Date / Time No Known Allergies Allergy Verified 06/17/19 08:49 Review of Systems ROS Statement: Those systems with pertinent positive or pertinent negative responses have been documented in the HPI. ROS Other: All systems not noted in ROS Statement are negative. Constitutional: Reports: as per HPI, fever Eyes: Denies: eye discharge, vision change ENT: Denies: ear pain, hearing loss, congestion Respiratory: Denies: cough, dyspnea Cardiovascular: Denies: chest pain, palpitations Gastrointestinal: Denies: abdominal pain, vomiting, diarrhea Genitourinary: Denies: dysuria, frequency, hematuria Musculoskeletal: Denies: back pain Skin: Denies: rash Neurological: Reports: as per HPI, headache. Denies: weakness, numbness, paresthesias Past Medical History Past Medical History: Cancer Additional Past Medical History / Comment(s): Metastatic lt breast cancer with metastases to peritoneal area. SIADH, Hydronephrosis, subclinical hypothyrodisim, protein calorie malnutrition,carpel tunnel right hand with sx. bilateral cataracts with sx, bowel obstruction History of Any Multi-Drug Resistant Organisms: None Reported Past Surgical History: Appendectomy, Cholecystectomy, Hysterectomy Additional Past Surgical History / Comment(s): Lumpectomy involving the left breast, previous history of abdominal surgery for small bowel obstruction x2, right uretheral stent with removal, removal was: 6-8 weeks ago, left subclavian stent secondary to stenosis Past Anesthesia/Blood Transfusion Reactions: No Reported Reaction Past Psychological History: Anxiety Smoking Status: Never smoker Past Alcohol Use History: None Reported Past Drug Use History: None Reported - Past Family History Father Family Medical History: Cancer Additional Family Medical History / Comment(s): lung cancer Mother Family Medical History: Cancer Additional Family Medical History / Comment(s): lung cancer General Exam Limitations: physical limitation General appearance: alert, cachectic Head exam: Present: atraumatic, normocephalic Eye exam: Present: normal appearance, PERRL, EOMI. Absent: scleral icterus, conjunctival injection ENT exam: Present: normal oropharynx Neck exam: Present: full ROM. Absent: meningismus Respiratory exam: Present: normal lung sounds bilaterally. Absent: respiratory distress, wheezes, rales, rhonchi, stridor Cardiovascular Exam: Present: regular rate, normal rhythm, normal heart sounds. Absent: systolic murmur, diastolic murmur, rubs, gallop Extremities exam: Present: normal inspection, full ROM, normal capillary refill. Absent: tenderness, pedal edema, joint swelling, calf tenderness Neurological exam: Present: alert, oriented X3, CN II-XII intact. Absent: motor sensory deficit Skin exam: Present: warm, dry, intact, normal color. Absent: rash Course Vital Signs 08/07/19 08/07/19 08/07/19 00:38 00:39 01:00 Temperature 98.9 F Pulse Rate 90 86 Respiratory 18 18 Rate Blood Pressure 85/56 80/55 O2 Sat by Pulse 95 96 95 Oximetry 08/07/19 08/07/19 08/07/19 01:30 03:03 04:30 Temperature Pulse Rate 78 74 75 Respiratory 18 18 18 Rate Blood Pressure 89/56 73/51 75/53 O2 Sat by Pulse 95 97 96 Oximetry 08/07/19 08/07/19 05:00 05:30 Temperature Pulse Rate 83 80 Respiratory 18 18 Rate Blood Pressure 82/54 81/61 O2 Sat by Pulse 95 95 Oximetry Medical Decision Making - Medical Decision Making 's patient is a 68-year-old woman transferred here for sepsis admission from [facility]. Given the patient's severe headache, computed tomography scan was obtained which shows a small area of hypodensity where she is having the pain. There is concern for ischemia. The patient is not having ischemic stroke symptoms. When I discuss case with the admitting physicians, it turns out that there is no neurology coverage this weekend and they request patient be transferred to facility with neurology. I discussed this with the patient who is amenable to going to [facility]. Case discussed with Dr. Burns who will accept for transfer there. - Lab Data Lab Results 08/07/19 Range/Units 00:49 Urine Color Yellow Urine Appearance Clear (Clear) Urine pH 6.0 (5.0-8.0) Ur Specific [place] 1.016 (1.001-1.035) Urine Protein Negative (Negative) Urine Glucose (UA) Negative (Negative) Urine Ketones 1+ H (Negative) Urine Blood Trace H (Negative) Urine Nitrite Negative (Negative) Urine Bilirubin Negative (Negative) Urine Urobilinogen <2.0 (<2.0) mg/dL Ur Leukocyte Esterase Trace H (Negative) Urine RBC 5 (0-5) /hpf Urine WBC 12 H (0-5) /hpf Ur Squamous Epith Cells <1 (0-4) /hpf Urine Mucus Rare H (None) /hpf Urine Yeast (Budding) Few H (None) /hpf Disposition Clinical Impression: Fever, Sepsis, Ischemic stroke Disposition: OTHER INSTITUTION NOT DEFINED Condition: Fair Is patient prescribed a controlled substance at d/c from ED?: No Referrals: Demarco Stroud MD [Primary Care Provider] - 1-2 days
[2019-08-07 01:26] LABS: Appearance,Urine Clear (Clear); Bilirubin,Urine Negative (Negative); Blood,Urine Trace (Negative); Budding Yeast,Urine Few /hpf; Color,Urine Yellow; Glucose,Urine (UA) Negative (Negative); Ketones,Urine 1+ (Negative); Leukocyte Esterase,Urine Trace (Negative); Mucus,Urine Rare /hpf; Nitrite,Urine Negative (Negative); Protein,Urine Negative (Negative); RBC,Urine 5 /hpf (0-5); Specific Gravity,Urine 1.016 (1.001-1.035); Squamous Epithelial Cell,Urine <1 /hpf (0-4); Urobilinogen,Urine <2.0 mg/dL (<2.0); WBC,Urine 12 /hpf (0-5)
--- NOTE | 2019-08-07 01:32 | CT ---
EXAMINATION TYPE: CT brain wo con DATE OF EXAM: 08/07/2019 COMPARISON: None HISTORY: HEADACHE CT DLP: 1078 mGycm Automated exposure control for dose reduction was used. Multiple axial sections were obtained of the brain without contrast. Ventricles have normal size. There is no mass effect nor midline shift. There is no sign of intracran ial hemorrhage. There is some mild hypodensity right posterior frontal lobe white matter measuring 2 cm. The calvarium is intact. IMPRESSION: White matter hypodensity right posterior frontal lobe could relate to some ischemia. No hemorrhage se en.
--- NOTE | 2019-08-07 01:38 | CT ---
EXAMINATION TYPE: CT orbits wo con DATE OF EXAM: 08/07/2019 COMPARISON: None HISTORY: HEADACHE CT DLP: 235.7 mGycm Automated exposure control for dose reduction was used. Multiple axial sections were obtained from the bottom of the maxilla to the top of the frontal sinuse s without contrast. Orbital margins are intact. There is no evidence of orbital mass. There is fairly normal aeration of the paranasal sinuses. Maxilla is intact. There is no evidence of a blowout fracture. Nasal bone is i ntact. Zygomatic arches appear normal. There is bilateral patency of the ostiomeatal complex. There i s no evidence of a soft tissue mass. Nasal septum deviated to the left side. There is fairly normal aeration of the temporal bones. IMPRESSION: Negative CT scan of the orbits. No evidence of orbital mass.
[2019-08-07] MEDS ORDERED: SODIUM CHLORIDE 0.9% 500 ML 250 ML IV STA (03:30)
[2019-08-07] MEDS ORDERED: RX INFO: IV CONTRAST WAS GIVEN 1 EACH MISC MISCELLANE PRN (04:39)
[2019-08-07] MEDS ORDERED: HYDROmorphone 0.5 MG/0.5 ML SYRINGE IVP STA ×3 (04:50→06:46)
--- NOTE | 2019-08-07 06:16 | CT ---
EXAMINATION TYPE: CT brain w con DATE OF EXAM: 08/07/2019 COMPARISON: Today HISTORY: Headache CT DLP: 2182.4 mGycm Automated exposure control for dose reduction was used. CONTRAST: Performed with IV Contrast, patient injected with 75 mL of Isovue 300. Multiple axial sections were obtained of the brain with intravenous contrast Isovue 75 mL. FINDINGS: There is mild cerebral atrophy. There is no mass effect nor midline shift. There is no sign of intrac ranial hemorrhage. I see no definite pathologic enhancement. There is normal enhancement of the venou s sinuses. There is 1.5 cm area of hypodensity right posterior frontal lobe white matter without enha ncement. The calvarium is intact. There is large area of osteoblastic change involving the left poste rior frontal bone. The skull base appears intact. IMPRESSION: Mild atrophy. Small white matter hypodensity right posterior frontal lobe unchanged and could be area of small vessel ischemia. No evidence of intracranial metastatic disease. 6 cm segment of osteoblastic change in the left posterior frontal bone could relate to metastatic dis ease. The old bone scan is reviewed from 03/09/2019 and this area does not have increased uptake. This could also be unusual large bone island.
[2019-08-07 07:45] VITALS: BP 97/57; PULSE 75; RESP 16; TEMP 98.2
== END 2019-08-07 07:45 | disposition other institution (70) ==
LOC: EC 00:32
DX: A41.9 Sepsis, unspecified organism (principal); I63.9 Cerebral infarction, unspecified; R50.9 Fever, unspecified; R51 Headache; F41.9 Anxiety disorder, unspecified; E22.2 Syndrome of inappropriate secretion of antidiuretic hormone; E03.9 Hypothyroidism, unspecified; Z79.899 Other long term (current) drug therapy; Z85.118 Personal history of other malignant neoplasm of bronchus and lung; Z85.3 Personal history of malignant neoplasm of breast; Z85.89 Personal history of malignant neoplasm of other organs and systems; Z90.49 Acquired absence of other specified parts of digestive tract; Z90.12 Acquired absence of left breast and nipple; Z98.890 Other specified postprocedural states; Z80.1 Family history of malignant neoplasm of trachea, bronchus and lung
CPT/HCPCS: 99285; 96374; 96376; 96361 ×4; 81001; 87086; 70450; 70460; 70480; J1170; Q9967

== ENCOUNTER 2019-11-17 21:57 | Inpatient (IN) | payer MEDICARE, OTHER ==
[2019-11-17] MEDS ORDERED: HYDROmorphone 1 MG/ML 1 ML SYRINGE IVP STA (22:12)
--- NOTE | 2019-11-17 22:20 | ED ---
General Adult HPI - General Chief complaint: Recheck/Abnormal Lab/Rx Stated complaint: Abnormal Labs Time Seen by Provider: 11/17/19 22:01 Source: EMS Mode of arrival: EMS Limitations: no limitations - History of Present Illness Initial comments: This patient is a 69-year-old woman coming here as a transfer from [facility]. The patient had gone there this afternoon to be evaluated for persistent diarrhea. The patient states this is been going on for over a week. She also relates that she has history of breast cancer which is metastatic to her colon. The patient is currently receiving treatment and had a chemotherapy session one week ago today. When the patient was seen at [facility] she reportedly was found to be neutropenic. The patient denies other symptoms of infection. She is not having fever or chills. No sinus congestion or sore throat. No cough, chest pain or dyspnea. No palpitations or syncope. The pa tieomer is not having new abdominal pain, though she does have some chronic pain. No change in urination. Labs from the outside facility did reveal an absolute neutrophil count of approximately 50, total white blood cell count 800. Sodium was 126. Computed tomography scan of the abdomen revealed some findings: colonic wall thickening felt to be related to her metastases, there was a small amount of ascites noted with a question of peritoneal implants, there was some urothelial thickening and questionable for possible urinary tract infection, and small bilateral pleural effusions were noted Onset/Timin -: week(s) Location: abdomen (Chronic mid abdominal pain) Radiation: non-radiation Quality: aching Consistency: constant Improves with: medication Worsens with: none Treatments Prior to Arrival: none - Related Data Home Medications Medication Instructions Recorded Confirmed ALPRAZolam [Xanax] 0.5 mg PO HS PRN 01/02/19 11/18/19 Albuterol Inhaler [Ventolin Hfa 2 puff INHALATION RT-Q6H PRN 11/18/19 11/18/19 Inhaler] Morphine Sulfate 15 mg PO Q48H PRN 11/18/19 11/18/19 Naproxen Sodium [Aleve] 220 mg PO DAILY PRN 11/18/19 11/18/19 Ondansetron HCl [Zofran] 8 mg PO Q8H PRN 11/18/19 11/18/19 oxyCODONE HCL [Oxaydo] 5 mg PO Q48H PRN 11/18/19 11/18/19 Previous Rx's Medication Instructions Recorded Zolpidem Tartrate [Ambien Cr] 12.5 mg PO HS #3 tab 01/27/19 fentaNYL 75MCG/HR PATCH [Duragesic 75 mcg TRANSDERM Q72H 3 Days #1 05/09/19 75MCG/HR] patch Allergies Allergy/AdvReac Type Severity Reaction Status Date / Time No Known Allergies Allergy Verified 11/18/19 11:07 Review of Systems ROS Statement: Those systems with pertinent positive or pertinent negative responses have been documented in the HPI. ROS Other: All systems not noted in ROS Statement are negative. Constitutional: Reports: weakness. Denies: fever, chills Respiratory: Denies: cough, dyspnea, wheezes Cardiovascular: Denies: chest pain, palpitations, edema, syncope Gastrointestinal: Reports: as per HPI, abdominal pain (Chronic), nausea, diarrhea. Denies: vomiting, constipation, melena, hematochezia Genitourinary: Denies: dysuria, hematuria Musculoskeletal: Denies: back pain Skin: Denies: rash Neurological: Denies: headache, weakness, numbness Past Medical History Past Medical History: Cancer Additional Past Medical History / Comment(s): Metastatic lt breast cancer with metastases to peritoneal area. SIADH, Hydronephrosis, subclinical hypothyrodisim, protein calorie malnutrition,carpel tunnel right hand with sx. bilateral cataracts with sx, bowel obstruction History of Any Multi-Drug Resistant Organisms: None Reported Past Surgical History: Appendectomy, Cholecystectomy, Hysterectomy Additional Past Surgical History / Comment(s): Lumpectomy involving the left breast, previous history of abdominal surgery for small bowel obstruction x2, right uretheral stent with removal, removal was: 6-8 weeks ago, left subclavian stent secondary to stenosis Past Anesthesia/Blood Transfusion Reactions: No Reported Reaction Past Psychological History: Anxiety Smoking Status: Never smoker Past Alcohol Use History: None Reported Past Drug Use History: None Reported - Past Family History Father Family Medical History: Cancer Additional Family Medical History / Comment(s): lung cancer Mother Family Medical History: Cancer Additional Family Medical History / Comment(s): lung cancer General Exam Limitations: no limitations General appearance: alert, in no apparent distress, cachectic Head exam: Present: atraumatic, normocephalic Eye exam: Present: normal appearance. Absent: scleral icterus, conjunctival injection Neck exam: Present: normal inspection Respiratory exam: Present: normal lung sounds bilaterally, other (Port in the right upper chest wall normal in appearance). Absent: respiratory distress, wheezes, rales, rhonchi, stridor Cardiovascular Exam: Present: regular rate, normal rhythm, normal heart sounds. Absent: systolic murmur, diastolic murmur, rubs, gallop GI/Abdominal exam: Present: soft. Absent: distended, tenderness, guarding, rebound, rigid, mass, pulsatile mass, hernia Extremities exam: Present: normal inspection, normal capillary refill. Absent: pedal edema, calf tenderness Back exam: Present: normal inspection. Absent: CVA tenderness (R), CVA tenderness (L) Neurological exam: Present: alert Skin exam: Present: warm, dry, intact, normal color. Absent: rash Course Vital Signs 11/17/19 11/17/19 22:01 23:00 Temperature 98.6 F Pulse Rate 71 74 Respiratory 16 18 Rate Blood Pressure 115/85 115/83 O2 Sat by Pulse 100 99 Oximetry Medical Decision Making - Medical Decision Making Patient is 69-year-old woman transferred from [facility] for neutropenia as well as hyponatremia. Patient be admitted for supplementation of sodium, as well as pending studies of stool and cultures. Case discussed with Dr. Leon, covering for oncology. - Lab Data Result diagrams: 11/22/19 05:00 11/22/19 05:00 Critical Care Time Critical Care Time: Yes (35 minutes) Disposition Clinical Impression: Hyponatremia, Neutropenia Disposition: ADMITTED IP TO THIS HOSP Condition: Fair
[2019-11-17] MEDS ORDERED: CEFEPIME 2 GM in SODIUM CHLORIDE 0.9% 100 ML IVPB STA (22:28)
[2019-11-17] MEDS ORDERED: ACETAMINOPHEN TAB 325 MG TAB PO PRN (22:33)
[2019-11-17] MEDS ORDERED: NALOXONE 0.4 MG/ML 1 ML VIAL IV PRN (22:33)
[2019-11-17] MEDS: SODIUM CHLORIDE 0.9% 1,000 ML IV SCH (22:53)
[2019-11-17] MEDS: ONDANSETRON 4 MG/2 ML VIAL IVP PRN (22:53)
[2019-11-17 22:57] LABS: HCT 33.3 % (34.0-46.0); HGB 10.6 gm/dL (11.4-16.0); MCH 28.8 pg (25.0-35.0); MCHC 31.9 g/dL (31.0-37.0); MCV 90.4 fL (80.0-100.0); Mean Platelet Volume 7.5; Platelet Count 255 k/uL (150-450); RBC 3.68 m/uL (3.80-5.40); RDW 15.3 % (11.5-15.5)
[2019-11-17 23:04] LABS: WBC 0.9 k/uL (3.8-10.6)
[2019-11-17 23:06] LABS: ALT 7 U/L (4-34); AST 19 U/L (14-36); African American GFR (CKD) >90 (>60 ml/min/1.73 sqM); Alkaline Phosphatase 31 U/L (38-126); Anion Gap 8 mmol/L; Blood Urea Nitrogen 12 mg/dL (7-17); Carbon Dioxide 21 mmol/L (22-30); Chloride 97 mmol/L (98-107); Glucose 79 mg/dL (74-99); Non-African American GFR(CKD) >90 (>60 ml/min/1.73 sqM); Potassium 4.1 mmol/L (3.5-5.1); Sodium 126 mmol/L (137-145); Total Bilirubin 0.7 mg/dL (0.2-1.3); Total Protein 5.6 g/dL (6.3-8.2)
[2019-11-17] MEDS ORDERED: SODIUM CHLORIDE 0.9% 500 ML 500 ML IV STA (23:25)
[2019-11-17] MEDS ORDERED: MORPHINE SULFATE IR 15 MG TABLET PO PRN (23:32)
[2019-11-17] MEDS ORDERED: ALBUTEROL INHALATION PRN (23:32)
[2019-11-18] MEDS ORDERED: ALBUTEROL NEBULIZED 2.5 MG/3 ML INHALATION PRN (00:34)
[2019-11-18] MEDS ORDERED: MORPHINE SULFATE IR 15 MG TABLET PO PRN (00:34)
[2019-11-18] MEDS: ALPRAZolam 0.5 MG TAB PO PRN ×2 (02:01→21:49)
[2019-11-18] MEDS: HYDROmorphone 1 MG/ML 1 ML SYRINGE IVP PRN ×5 (02:02→20:18)
[2019-11-18] MEDS: SODIUM CHLORIDE 0.9% 1,000 ML IV SCH ×2 (04:21→21:55)
[2019-11-18] MEDS: LACTULOSE 20 GM/30 ML CUP PO SCH ×2 (08:37→21:56)
[2019-11-18] MEDS: FAMOTIDINE 20 MG TAB PO SCH ×2 (08:37→21:56)
[2019-11-18] MEDS: PANTOPRAZOLE 40 MG TABLET PO SCH ×2 (08:37→21:56)
[2019-11-18] MEDS: DOXYCYCLINE 100 MG CAP PO SCH ×2 (08:37→21:56)
[2019-11-18] MEDS: Mirabegron [Myrbetriq] 50 MG PO SCH (08:37)
[2019-11-18] MEDS: SENNOSIDES 8.6 MG TAB PO SCH ×2 (08:38→21:56)
[2019-11-18] MEDS: DOCUSATE 100 MG CAP PO SCH ×2 (08:38→21:56)
[2019-11-18] MEDS: POLYETHYLENE GLYCOL 3350 17 GM POWD.PACK PO SCH ×2 (08:38→21:56)
[2019-11-18] MEDS: ONDANSETRON 4 MG/2 ML VIAL IVP PRN ×2 (08:39→16:24)
[2019-11-18 08:51] LABS: HCT 29.3 % (34.0-46.0); HGB 9.4 gm/dL (11.4-16.0); Hypochromasia Slight; MCH 29.6 pg (25.0-35.0); MCHC 32.1 g/dL (31.0-37.0); MCV 92.2 fL (80.0-100.0); Mean Platelet Volume 7.6; Platelet Count 223 k/uL (150-450); RBC 3.17 m/uL (3.80-5.40); RDW 14.8 % (11.5-15.5)
[2019-11-18 08:54] LABS: WBC 0.9 k/uL (3.8-10.6)
[2019-11-18] MEDS ORDERED: SENNOSIDES 8.6 MG TAB PO SCH (09:00)
[2019-11-18] MEDS ORDERED: NON FORMULARY DRUG (Mirabegron [Myrbetriq] 50 MG) PO SCH (09:00)
[2019-11-18] MEDS ORDERED: POLYETHYLENE GLYCOL 3350 17 GM POWD.PACK PO SCH (09:00)
[2019-11-18] MEDS ORDERED: DOCUSATE 100 MG CAP PO SCH (09:00)
[2019-11-18] MEDS ORDERED: DOXYCYCLINE 100 MG CAP PO SCH (09:00)
[2019-11-18 09:08] LABS: African American GFR (CKD) >90 (>60 ml/min/1.73 sqM); Anion Gap 5 mmol/L; Blood Urea Nitrogen 10 mg/dL (7-17); Calcium 7.7 mg/dL (8.4-10.2); Carbon Dioxide 21 mmol/L (22-30); Chloride 102 mmol/L (98-107); Glucose 98 mg/dL (74-99); Non-African American GFR(CKD) >90 (>60 ml/min/1.73 sqM); Potassium 3.4 mmol/L (3.5-5.1); Sodium 128 mmol/L (137-145)
[2019-11-18 09:16] LABS: Poikilocytosis (M) Present
[2019-11-18 12:37] VITALS: BMI 16.0
--- NOTE | 2019-11-18 14:21 | P.CONS ---
History of Present Illness - Reason for Consult Consult date: 11/18/19 Chemotherapy, Neutropenia Requesting physician: Yemi Dorado - Chief Complaint Febrile neutropenia - History of Present Illness Ms. Stewart is a very pleasant 69-year-old female patient with a past medical history of breast cancer of the left breast, diagnosed 2005, treated with lumpectomy, radiation, chemotherapy and anastrozole for 5 years. She developed recurrence in the left breast in July 2016, pathology consistent with metastatic disease. She was treated at the [facility] cancer [facility]. She has had multiple treatments. She had admissions for bowel obstruction off and on since early 2018. Late 08/17-early 09/17 she had omental biopsy confirming breast primary, ER positive, W[place] now negative, and HER-2/marcial negative. Admitted [facility] with regard bowel obstruction, which did not resolve with conservative measures. She therefore underwent surgery on 01/12/19 with at least 2 areas of obstruction of the small bowel obstruction due to omental metastasis. She had resection and end-to-end anastomosis with pathology confirming breast primary, ER positive, W[place] negative and HER-2/marcial negative. Discharged to [facility], seen for her first office visit here 02/24/19. CT AP did not show definite measurable disease, though surgeon's inspection revealed evidence of peritoneal deposits, CXR bilateral small pleural effusions and left lower lob e infiltrate, tumor markers on 01/08/19 showed normal CA 153, and 2729 elevated at 71.7. Since recurrence, the patient has been treated with anastrozole, Faslodex, Ibrance, Abraxane, and most currently she is on xeloda. She was admitted on 04/07/19 with intractable back pain. This was due to new compression fracture at T7. She underwent kyphoplasty with biopsy. Pathology was negative for tumor. Post discharge the patient did resume Xeloda, 1 week on 1 week off. Unfortunetly progressed on this and In the beginning of 2019 she was treated with next line single agent gemsar. In July was her last visit with us, she lives closer to [place] and had decided to transfer her care there for travel. She states her disease has continued to progress and most recently to her colon which has led to her new treatment line with taxotere weekly. She did not receive growth factor. She present with WBC 0.9 and neutrophils 0. Normocytic anemia and platelets stable. She was seen on the 6th floor, appears comfortable although has spiked a fever. Blood cultures (line and peripheral ordered), Urinalysis with culture, Chest xray, viral swab, COVID, and ID consult placed. Empiric antibiotics with Va ncomycin, Cefepime initiated. Anti-viral prophylaxis and antifungal protection also placed to begin intially until evaluation by ID. I have also ordered zarxio. She denies any clear symptoms for identification of source. Review of Systems A 14 point review of systems assessed and completed and all negative except HPI Past Medical History Past Medical History: Cancer Additional Past Medical History / Comment(s): Metastatic lt breast cancer with metastases to peritoneal area and colon. SIADH, Hydronephrosis, subclinical hypothyrodisim, protein calorie malnutrition,carpel tunnel right hand with sx. bilateral cataracts with sx, bowel obstruction History of Any Multi-Drug Resistant Organisms: None Reported Past Surgical History: Appendectomy, Cholecystectomy, Hysterectomy Additional Past Surgical History / Comment(s): Lumpectomy involving the left breast, previous history of abdominal surgery for small bowel obstruction x2, right uretheral stent with removal, left subclavian stent secondary to stenosis Past Anesthesia/Blood Transfusion Reactions: No Reported Reaction Past Psychological History: Anxiety Smoking Status: Never smoker Past Alcohol Use History: None Reported Past Drug Use History: None Reported - Past Family History Father Family Medical History: Cancer Additional Family Medical History / Comment(s): lung cancer Mother Family Medical History: Cancer Additional Family Medical History / Comment(s): lung cancer Medications and Allergies Home Medications Medication Instructions Recorded Confirmed Type ALPRAZolam [Xanax] 0.5 mg PO HS PRN 01/02/19 11/18/19 History Zolpidem Tartrate [Ambien Cr] 12.5 mg PO HS #3 tab 01/27/19 11/18/19 Rx fentaNYL 75MCG/HR PATCH [Duragesic 75 mcg TRANSDERM Q72H 3 Days #1 05/09/19 11/18/19 Rx 75MCG/HR] patch Albuterol Inhaler [Ventolin Hfa 2 puff INHALATION RT-Q6H PRN 11/18/19 11/18/19 History Inhaler] Morphine Sulfate 15 mg PO Q48H PRN 11/18/19 11/18/19 History Naproxen Sodium [Aleve] 220 mg PO DAILY PRN 11/18/19 11/18/19 History Ondansetron HCl [Zofran] 8 mg PO Q8H PRN 11/18/19 11/18/19 History oxyCODONE HCL [Oxaydo] 5 mg PO Q48H PRN 11/18/19 11/18/19 History Allergies Allergy/AdvReac Type Severity Reaction Status Date / Time No Known Allergies Allergy Verified 11/18/19 11:07 Physical Exam Vitals: Vital Signs Temp Pulse Pulse Resp BP BP Pulse Ox 11/18/19 07:00 97.6 F 71 16 104/66 100 11/18/19 00:55 98.3 F 72 18 120/76 100 11/17/19 23:00 74 18 115/83 99 11/17/19 22:01 98.6 F 71 16 115/85 100 Intake and Output 11/17/19 11/18/19 11/18/19 22:59 06:59 14:59 Intake Total 120 Output Total 300 325 Balance -300 -205 Intake: Oral 120 Output: Urine 300 325 Other: # Voids 1 1 Weight 39.463 kg 40.9 kg 40.9 kg Results CBC & Chem 7: 11/18/19 08:29 11/18/19 08:29 Labs: Abnormal Lab Results - Last 24 Hours (Table) 11/17/19 11/17/19 11/18/19 Range/Units 22:44 22:44 08:29 WBC 0.9 L* 0.9 L* (3.8-10.6) k/uL RBC 3.68 L 3.17 L (3.80-5.40) m/uL Hgb 10.6 L 9.4 L (11.4-16.0) gm/dL Hct 33.3 L 29.3 L (34.0-46.0) % Sodium 126 L (137-145) mmol/L Potassium (3.5-5.1) mmol/L Chloride 97 L (98-107) mmol/L Carbon Dioxide 21 L (22-30) mmol/L Creatinine 0.43 L (0.52-1.04) mg/dL Calcium 8.0 L (8.4-10.2) mg/dL Alkaline Phosphatase 31 L (38-126) U/L Total Protein 5.6 L (6.3-8.2) g/dL Albumin 3.0 L (3.5-5.0) g/dL 11/18/19 Range/Units 08:29 WBC (3.8-10.6) k/uL RBC (3.80-5.40) m/uL Hgb (11.4-16.0) gm/dL Hct (34.0-46.0) % Sodium 128 L (137-145) mmol/L Potassium 3.4 L (3.5-5.1) mmol/L Chloride (98-107) mmol/L Carbon Dioxide 21 L (22-30) mmol/L Creatinine 0.40 L (0.52-1.04) mg/dL Calcium 7.7 L (8.4-10.2) mg/dL Alkaline Phosphatase (38-126) U/L Total Protein (6.3-8.2) g/dL Albumin (3.5-5.0) g/dL Assessment and Plan Plan: Assessment and Recommendations: 1. Metastatic Breast Cancer: - Has been treated with many lines of therapy - Known Bone Mets - Transferred care to [facility] in July to reduce travel time - Per patient status post chemotherapy one week ago )?continued on gemsar weekly) 2. Febrile Neutropenia: 101.9 - Zarxio initiated - Loving Cultures - Monitor for s/s infection - Urinalysis, Culture, rec chest xray and blood cultures - Initiate broad spectrum antibiotics Vanco and cefepime after cultures collected. - Consult and defer further abx coverage to [facility] 3. Normocytic anemia: - Secondary to malignancy and chemotherapy - Stable currently, no transfusion indicated.
[2019-11-18 16:28] LABS: Partial Thromboplastin Time 26.1 sec (22.0-30.0); Prothrombin Time 10.1 sec (9.0-12.0)
--- NOTE | 2019-11-18 17:17 | XR ---
EXAMINATION TYPE: XR chest 1V portable DATE OF EXAM: 11/18/2019 Comparison: 05/20/2019 Clinical History: 69-year-old female septic workup Findings: Right anterior chest wall injection port with subclavian access tip at the upper right atrium. Verteb roplasty change along the mid thoracic spine. Patient is rotated toward the right altering the normal cardiac and mediastinal contours. Heart mildly enlarged. Similar elevation left hemidiaphragm. Mild interstitial prominence is unchanged. Some strandy left basilar atelectasis. Cholecystectomy clips. Impression: Rotated exam. Mild cardiomegaly, chronic interstitial changes, and some left basilar atelectasis with continued asymmetric elevation of the left hemidiaphragm. Correlate for the possibility of hemidiaph ragmatic paralysis.
[2019-11-18 18:08] LABS: Amorphous Sediment,Urine Rare /hpf; Appearance,Urine Cloudy (Clear); Bacteria,Urine Occasional /hpf; Bilirubin,Urine Negative (Negative); Blood,Urine Trace (Negative); Color,Urine Light Yellow; Glucose,Urine (UA) Negative (Negative); Ketones,Urine Negative (Negative); Leukocyte Esterase,Urine Large (Negative); Mucus,Urine Rare /hpf; Nitrite,Urine Positive (Negative); Protein,Urine 1+ (Negative); RBC,Urine 4 /hpf (0-5); Specific Gravity,Urine 1.008 (1.001-1.035); Urobilinogen,Urine <2.0 mg/dL (<2.0); WBC,Urine 76 /hpf (0-5)
[2019-11-18] MEDS ORDERED: VANCOMYCIN IV PER PHARMACY 1 EACH MISC MISCELLANE PRN (20:16)
[2019-11-18] MEDS: VANCOMYCIN 750 MG in SODIUM CHLORIDE 0.9% 250 ML IVPB SCH (20:52)
[2019-11-18] MEDS: FILGRASTIM-SNDZ 300 MCG/0.5 ML SYRINGE SQ SCH (20:52)
[2019-11-18] MEDS: ACYCLOVIR 200 MG CAP PO SCH (20:53)
[2019-11-18] MEDS: FLUCONAZOLE 100 MG TAB PO SCH (20:53)
[2019-11-18] MEDS ORDERED: ZOLPIDEM TARTRATE 12.5 MG PO SCH (21:00)
[2019-11-18] MEDS: ZOLPIDEM 5 MG TAB PO SCH (21:49)
--- NOTE | 2019-11-18 22:58 | P.HPIM ---
History of Present Illness H&P Date: 11/18/19 Chief Complaint: Nausea and diarrhea Patient is 69-year-old female with a known history of metastatic left breast cancer with mets to colon, SIADH, subclinical hypothyroidism, moderate protein calorie moderation, anxiety initially presented to ER at [facility] with complaints of persistent diarrhea and nausea. Denies any episodes of vomiting. Denies any severe abdominal discomfort. Patient does have metastatic lesions in the colon. Patient is currently receiving chemotherapy last time about 1 week ago with a Mediport. Initially denied any complaints of fever or chills. No complaints of chest pain. No cough or sputum production. No leg swelling. Denied any dysuria or hematuria. Patient was found to be neutropenic and hyponatremia with sodium level 126. CT of the abdomen pelvis showed colonic wall thickening felt to be related to her metastasis. There was a small amount of ascites noted with a question of peritoneal implants, there was small urothelial thickening and questionable for possible urinary tract infection. And small bilateral pleural effusions were noted. Patient became febrile this afternoon with T-max of 101.3 Laboratory data showed WBC of 0.9, hemoglobin 10.6 and platelets 255 Sodium level is 126 Chloride 97, bicarb is 21 BUN 12 and creatinine 0.43 Calcium 8.0 Albumin 3.0 Coronavirus not detected. Urinalysis showed cloudy, nitrite positive and large leukocyte esterase with WBC 76. Review of Systems Constitutional: Patientdoes have fever or chills . generalized weakness and weight loss. Abdomen: Patient denied vomiting. Nausea and diarrhea and no abdominal pain. Cardiovascular: Patient denies any chest pain or short of breath no palpit ations. Respiratory: patient denied any cough is from production. No shortness of breath Neurologic: Patient denied any numbness or tingling headache. Musculoskeletal: Patient denies any complaints of joint swelling or deformity. Skin: Negative Psychiatric: Negative Endocrine: No heat or cold intolerance. No recent weight gain. Genitourinary: No dysuria or hematuria. All other 14 point ROS negative except the above Past Medical History Past Medical History: Cancer Additional Past Medical History / Comment(s): Metastatic lt breast cancer with metastases to peritoneal area and colon. SIADH, Hydronephrosis, subclinical hypothyrodisim, protein calorie malnutrition,carpel tunnel right hand with sx. bilateral cataracts with sx, bowel obstruction History of Any Multi-Drug Resistant Organisms: None Reported Past Surgical History: Appendectomy, Cholecystectomy, Hysterectomy Additional Past Surgical History / Comment(s): Lumpectomy involving the left breast, previous history of abdominal surgery for small bowel obstruction x2, right uretheral stent with removal, left subclavian stent secondary to stenosis Past Anesthesia/Blood Transfusion Reactions: No Reported Reaction Past Psychological History: Anxiety Smoking Status: Never smoker Past Alcohol Use History: None Reported Past Drug Use History: None Reported - Past Family History Father Family Medical History: Cancer Additional Family Medical History / Comment(s): lung cancer Mother Family Medical History: Cancer Additional Family Medical History / Comment(s): lung cancer Medications and Allergies Home Medications Medication Instructions Recorded Confirmed Type ALPRAZolam [Xanax] 0.5 mg PO HS PRN 01/02/19 11/18/19 History Zolpidem Tartrate [Ambien Cr] 12.5 mg PO HS #3 tab 01/27/19 11/18/19 Rx fentaNYL 75MCG/HR PATCH [Duragesic 75 mcg TRANSDERM Q72H 3 Days #1 05/09/19 11/18/19 Rx 75MCG/HR] patch Albuterol Inhaler [Ventolin Hfa 2 puff INHALATION RT-Q6H PRN 11/18/19 11/18/19 History Inhaler] Morphine Sulfate 15 mg PO Q48H PRN 11/18/19 11/18/19 History Naproxen Sodium [Aleve] 220 mg PO DAILY PRN 11/18/19 11/18/19 History Ondansetron HCl [Zofran] 8 mg PO Q8H PRN 11/18/19 11/18/19 History oxyCODONE HCL [Oxaydo] 5 mg PO Q48H PRN 11/18/19 11/18/19 History Allergies Allergy/AdvReac Type Severity Reaction Status Date / Time No Known Allergies Allergy Verified 11/18/19 11:07 Physical Exam Vitals: Vital Signs Temp Pulse Pulse Resp BP BP Pulse Ox 11/18/19 07:00 97.6 F 71 16 104/66 100 11/18/19 00:55 98.3 F 72 18 120/76 100 11/17/19 23:00 74 18 115/83 99 11/17/19 22:01 98.6 F 71 16 115/85 100 Intake and Output 11/17/19 11/18/19 11/18/19 22:59 06:59 14:59 Intake Total 120 Output Total 300 325 Balance -300 -205 Intake: Oral 120 Output: Urine 300 325 Other: # Voids 1 Weight 39.463 kg 40.9 kg PHYSICAL EXAMINATION: Patient is lying in the bed comfortably, no acute distress, awake alert and oriented.. HEENT: Normocephalic. Neck is supple. Pupils reactive. Nostrils clear. Oral cavity is moist. Ears reveal no drainage. Neck reveals no JVD, carotid bruits, or thyromegaly. CHEST EXAMINATION: Trachea is central. Symmetrical expansion. Lung collazo clear to auscultation and percussion. CARDIAC: Normal S1, S2 with no gallops. No murmurs ABDOMEN: Soft. Bowel sounds normal. No organomegaly. No abdominal bruits. Extremities: reveal no edema. No clubbing or cyanosis Neurologically awake, alert, oriented x3 with well-coordinated movements. No focal deficits noted Skin: No rash or skin lesions. Psychiatric: Coperative. Nonsuicidal Musculoskeletal: No joint swelling or deformity. Normal range of motion. Results CBC & Chem 7: 11/18/19 08:29 11/18/19 08:29 Labs: Abnormal Lab Results - Last 24 Hours (Table) 11/17/19 11/17/19 11/18/19 Range/Units 22:44 22:44 08:29 WBC 0.9 L* 0.9 L* (3.8-10.6) k/uL RBC 3.68 L 3.17 L (3.80-5.40) m/uL Hgb 10.6 L 9.4 L (11.4-16.0) gm/dL Hct 33.3 L 29.3 L (34.0-46.0) % Sodium 126 L (137-145) mmol/L Potassium (3.5-5.1) mmol/L Chloride 97 L (98-107) mmol/L Carbon Dioxide 21 L (22-30) mmol/L Creatinine 0.43 L (0.52-1.04) mg/dL Calcium 8.0 L (8.4-10.2) mg/dL Alkaline Phosphatase 31 L (38-126) U/L Total Protein 5.6 L (6.3-8.2) g/dL Albumin 3.0 L (3.5-5.0) g/dL 11/17/ Range/Units 08:29 WBC (3.8-10.6) k/uL RBC (3.80-5.40) m/uL Hgb (11.4-16.0) gm/dL Hct (34.0-46.0) % Sodium 128 L (137-145) mmol/L Potassium 3.4 L (3.5-5.1) mmol/L Chloride (98-107) mmol/L Carbon Dioxide 21 L (22-30) mmol/L Creatinine 0.40 L (0.52-1.04) mg/dL Calcium 7.7 L (8.4-10.2) mg/dL Alkaline Phosphatase (38-126) U/L Total Protein (6.3-8.2) g/dL Albumin (3.5-5.0) g/dL Thrombosis Risk Factor Assmnt - DVT/VTE Prophylaxis DVT/VTE Prophylaxis: Pharmacologic Prophylaxis ordered - Choose All That Apply Any of the Below Risk Factors Present?: Yes Each Factor Represents 1 point: Age 41-60 years, Varicose veins Other Risk Factors: Yes Each Risk Factor Represents 2 Points: Central venous access Other congenital or acquired thrombophilia - If yes, enter type in comment: No Thrombosis Risk Factor Assessment Total Risk Factor Score: 4 Thrombosis Risk Factor Assessment Level: Moderate Risk Assessment and Plan Assessment: Acute diarrhea along with nausea likely due to chemotheraphy. Febrile neutropenia Bicytopenia due to chemotherapy. Sepsis secondary to urinary tract infection Hyponatremia likely hypoosmolar. Metastatic breast cancer with mets to colon and peritoneum. Currently on chemotherapy 1 week ago Chronic back pain with compression fracture at T7 History of SIADH Hydronephrosis Subclinical hypothyroidism Right carpal tunnel syndrome History of bowel obstruction Anxiety Moderate protein calorie malnutrition Plan: Patient will be continued on IV hydration with normal saline. Continue with broad-spectrum antibiotics in the form of vancomycin and cefepime. Follow-up urine culture reports. Tumor markers were ordered as per oncology recommendations. Continue to monitor closely. Further recommendations based on clinical course. Prognosis guarded with multiple medical problems and advanced cancer. Time with Patient: Greater than 30
[2019-11-18] MEDS: CEFEPIME 2 GM in SODIUM CHLORIDE 0.9% 100 ML IVPB SCH (23:49)
[2019-11-19] MEDS: HYDROmorphone 1 MG/ML 1 ML SYRINGE IVP PRN ×4 (06:07→19:19)
[2019-11-19 06:30] LABS: HCT 28.8 % (34.0-46.0); HGB 9.3 gm/dL (11.4-16.0); Hypochromasia Slight; MCH 29.8 pg (25.0-35.0); MCHC 32.3 g/dL (31.0-37.0); MCV 92.3 fL (80.0-100.0); Mean Platelet Volume 7.5; Platelet Count 238 k/uL (150-450); RBC 3.12 m/uL (3.80-5.40); RDW 15.1 % (11.5-15.5)
[2019-11-19 06:31] LABS: WBC 0.8 k/uL (3.8-10.6)
[2019-11-19 06:38] LABS: ALT <6 U/L (4-34); AST 12 U/L (14-36); African American GFR (CKD) >90 (>60 ml/min/1.73 sqM); Albumin 2.3 g/dL (3.5-5.0); Alkaline Phosphatase 31 U/L (38-126); Anion Gap 5 mmol/L; Blood Urea Nitrogen 7 mg/dL (7-17); Calcium 7.8 mg/dL (8.4-10.2); Carbon Dioxide 22 mmol/L (22-30); Chloride 103 mmol/L (98-107); Glucose 100 mg/dL (74-99); Magnesium 1.2 mg/dL (1.6-2.3); Non-African American GFR(CKD) >90 (>60 ml/min/1.73 sqM); Potassium 2.9 mmol/L (3.5-5.1); Sodium 130 mmol/L (137-145); Total Bilirubin 0.4 mg/dL (0.2-1.3); Total Protein 4.6 g/dL (6.3-8.2)
[2019-11-19] MEDS: CEFEPIME 2 GM in SODIUM CHLORIDE 0.9% 100 ML IVPB SCH ×3 (07:50→23:55)
[2019-11-19] MEDS: ONDANSETRON 4 MG/2 ML VIAL IVP PRN (08:45)
[2019-11-19] MEDS: POLYETHYLENE GLYCOL 3350 17 GM POWD.PACK PO SCH ×2 (08:49→21:13)
[2019-11-19] MEDS: PANTOPRAZOLE 40 MG TABLET PO SCH ×2 (08:49→21:13)
[2019-11-19] MEDS: SENNOSIDES 8.6 MG TAB PO SCH ×2 (08:50→21:14)
[2019-11-19] MEDS: DOCUSATE 100 MG CAP PO SCH ×2 (08:51→21:13)
[2019-11-19] MEDS: LACTULOSE 20 GM/30 ML CUP PO SCH ×2 (08:51→21:13)
[2019-11-19] MEDS: FAMOTIDINE 20 MG TAB PO SCH ×2 (08:51→21:13)
[2019-11-19] MEDS: Mirabegron [Myrbetriq] 50 MG PO SCH (08:51)
[2019-11-19] MEDS: ACYCLOVIR 200 MG CAP PO SCH ×3 (08:53→22:08)
[2019-11-19] MEDS: DOXYCYCLINE 100 MG CAP PO SCH ×2 (08:53→20:22)
[2019-11-19] MEDS: VANCOMYCIN 750 MG in SODIUM CHLORIDE 0.9% 250 ML IVPB SCH ×2 (08:53→21:55)
[2019-11-19] MEDS: SODIUM CHLORIDE 0.9% 1,000 ML IV SCH ×2 (09:25→16:22)
[2019-11-19] MEDS ORDERED: POTASSIUM CHLORIDE 20 MEQ in WATER FOR INJECTION 1 100ML.BAG IVPB STA (14:20)
[2019-11-19] MEDS ORDERED: POTASSIUM CHLORIDE ER 20 MEQ TAB.ER PO STA (14:20)
[2019-11-19] MEDS ORDERED: Potassium Replacement Protocol 1 EACH MISC MISCELLANE PRN (14:21)
[2019-11-19] MEDS ORDERED: IOPAMIDOL CONTRAST (ORAL USE) VIAL PO PRN (15:03)
[2019-11-19] MEDS ORDERED: SODIUM CHLORIDE 0.9% 500 ML 500 ML IV ONE (15:44)
--- NOTE | 2019-11-19 17:43 | CT ---
EXAMINATION TYPE: CT abdomen pelvis w con DATE OF EXAM: 11/19/2019 COMPARISON: 05/09/2019 HISTORY: 69-year-old female Fever and abdominal pain. TECHNIQUE: Contiguous axial scanning of the abdomen and pelvis following administration of 100 ml Iso marj 300 IV contrast. Delayed images through the kidneys and coronal/sagittal reconstructions perform ed. CT DLP: 835 mGycm Automated exposure control for dose reduction was used. FINDINGS: Heart normal size without pericardial effusion. CVC tip at the cavoatrial junction. Small left and tr alec right pleural effusions. Adjacent left basilar atelectasis. No focal liver lesion seen. Mild intrahepatic and extrahepatic biliary ductal dilatation. Bile duct m easures 1.2 cm, unchanged from 05/09/2019. Cholecystectomy clips. Portal venous system is patent. Continued moderate hydronephrosis and urothelial enhancement of unclear etiology. Diffusely dilated small bowel loops with air-fluid levels. Small bowel loops measure up to 3.7 cm. Th ere is some whirled appearance of the mesentery in the midabdomen, refer to axial image 49, sagittal image 60 and 57 with a narrowing to a taper in this region suggesting a transition point. Some collap sed distal small bowel loops. A couple staple lines related to prior small bowel surgery. However, there is persistent distention of the cecum up to 7.7 cm some fluid in the right side of the colon. Segments of moderate circumferential colonic wall thickening suggested at the hepatic flexure and descending colon is demonstrated. Marked generalized anasarca change. Trace abdominal pelvic ascites. Presacral edema. Bladder urine distended. Uterus not visualized, probably surgically absent. Multilevel degenerative changes throughout the lumbar spine. IMPRESSION: 1. SMALL BOWEL DILATATION UP TO 3.7 CM WITH AIR-FLUID LEVELS. Given a whirled appearance in the mesen donal of the midabdomen and narrowing of small bowel to a taper in this region, small bowel obstructio n is suggested. 2. There is persistent cecal distention up to 7.8 cm which can continue to be monitored. Segments of moderate wall thickening throughout the colon suggests areas of nonspecific colitis. Clinically corre late 3. Trace ascites fluid and marked generalized anasarca. 4. Small left and trace right pleural effusions.
[2019-11-19] MEDS: MAGNESIUM SULFATE-D5W PMX 1 GM in DEXTROSE/WATER 1 100ML.BAG IVPB SCH ×3 (18:08→20:21)
[2019-11-19] MEDS: FLUCONAZOLE 100 MG TAB PO SCH (20:21)
[2019-11-19] MEDS: POTASSIUM CHLORIDE ER 20 MEQ TAB.ER PO SCH ×2 (20:21→21:55)
[2019-11-19] MEDS: ALPRAZolam 0.5 MG TAB PO PRN (21:55)
[2019-11-19] MEDS: ZOLPIDEM 5 MG TAB PO SCH (21:55)
[2019-11-19] MEDS: FILGRASTIM-SNDZ 300 MCG/0.5 ML SYRINGE SQ SCH (22:08)
[2019-11-20] MEDS ORDERED: metroNIDAZOLE-NS PMX 500 MG in SALINE 1 100ML.BAG IVPB SCH
[2019-11-20] MEDS ORDERED: POTASSIUM CHLORIDE ER 20 MEQ TAB.ER PO STA (00:54)
[2019-11-20] MEDS: metroNIDAZOLE-NS PMX 500 MG in SALINE 1 100ML.BAG IVPB SCH ×3 (00:56→16:09)
[2019-11-20] MEDS: HYDROmorphone 1 MG/ML 1 ML SYRINGE IVP PRN ×5 (01:21→20:49)
[2019-11-20 06:30] LABS: HCT 28.2 % (34.0-46.0); HGB 9.2 gm/dL (11.4-16.0); Hypochromasia Moderate; MCH 30.1 pg (25.0-35.0); MCHC 32.7 g/dL (31.0-37.0); MCV 92.1 fL (80.0-100.0); Mean Platelet Volume 7.7; Platelet Count 242 k/uL (150-450); RBC 3.07 m/uL (3.80-5.40); RDW 15.2 % (11.5-15.5)
[2019-11-20 06:52] LABS: African American GFR (CKD) >90 (>60 ml/min/1.73 sqM); Anion Gap 4 mmol/L; Blood Urea Nitrogen 5 mg/dL (7-17); Calcium 7.5 mg/dL (8.4-10.2); Carbon Dioxide 20 mmol/L (22-30); Chloride 105 mmol/L (98-107); Glucose 80 mg/dL (74-99); Non-African American GFR(CKD) >90 (>60 ml/min/1.73 sqM); Potassium 4.5 mmol/L (3.5-5.1); Sodium 129 mmol/L (137-145)
[2019-11-20 07:10] LABS: Band Neutrophils % 15 %; Lymphocytes # (M) 1.08 k/uL (1.0-4.8); Metamyelocytes # (M) 0.12 k/uL (0); Metamyelocytes % 3 %; Neutrophils % (M) 45 %; Nucleated Red Blood Cells 0 /100 WBC (0-0); Total Cells Counted 200
[2019-11-20 07:11] LABS: Polychromasia Present
[2019-11-20] MEDS: CEFEPIME 2 GM in SODIUM CHLORIDE 0.9% 100 ML IVPB SCH ×2 (07:42→15:25)
[2019-11-20] MEDS: SODIUM CHLORIDE 0.9% 1,000 ML IV SCH ×2 (08:29→20:48)
[2019-11-20] MEDS: ACYCLOVIR 200 MG CAP PO SCH ×2 (08:44→16:34)
[2019-11-20] MEDS: PANTOPRAZOLE 40 MG TABLET PO SCH (08:45)
[2019-11-20] MEDS: Mirabegron [Myrbetriq] 50 MG PO SCH (08:45)
[2019-11-20] MEDS: FAMOTIDINE 20 MG TAB PO SCH (08:45)
[2019-11-20] MEDS: DOCUSATE 100 MG CAP PO SCH (08:45)
[2019-11-20] MEDS: LACTULOSE 20 GM/30 ML CUP PO SCH (08:45)
[2019-11-20] MEDS: SENNOSIDES 8.6 MG TAB PO SCH (08:46)
[2019-11-20] MEDS: POLYETHYLENE GLYCOL 3350 17 GM POWD.PACK PO SCH (08:46)
--- NOTE | 2019-11-20 10:31 | P.CONS ---
History of Present Illness - Reason for Consult Consult date: 11/19/19 Febrile neutropenia Requesting physician: Holly Kaye - Chief Complaint Abdominal pain and diarrhea x few days - History of Present Illness Patient is a 69-year-old female with a past medical history significant for metastatic breast cancer with metastases to the peritoneal/, this patient who did have multiple episodes of small bowel obstruction and didn't require laparotomy with resection of portion of small bowel and anastomosis last year patient said that she has been on chemotherapy last has been about a week ago she recently did have problem with constipation for the patient was given an enema since then the patient seemed to have problem with diarrhea with multiple loose stools per day denies any blood or mucus in stool she'll be complaining of some dull aching pain abdominal area density 5-6 out of 10 and no radiation has felt nauseated in May the patient was evaluated [facility] with the patient did have a low white count subsequently the patient has been transferred to [facility] for further management of underlying condition on arrival to the patient was afebrile subsequently displayed a fever of 101F patient also have a neutropenia the white count 0.8 patient has been started on [facility] antibiotic form of cefepime and vancomycin and infectious disease was consulted for further management of a ntibiotic therapy as of this morning the patient is afebrile still complaining of GI symptoms, with difficulty keeping anything down, no chest pain or shortness of breath or cough denies significant urinary symptoms Review of Systems Positive point has been mentioned in the HPI rest of the systems are negative Past Medical History Past Medical History: Cancer Additional Past Medical History / Comment(s): Metastatic lt breast cancer with metastases to peritoneal area and colon. SIADH, Hydronephrosis, subclinical hypothyrodisim, protein calorie malnutrition,carpel tunnel right hand with sx. bilateral cataracts with sx, bowel obstruction History of Any Multi-Drug Resistant Organisms: None Reported Past Surgical History: Appendectomy, Cholecystectomy, Hysterectomy Additional Past Surgical History / Comment(s): Lumpectomy involving the left breast, previous history of abdominal surgery for small bowel obstruction x2, right uretheral stent with removal, left subclavian stent secondary to stenosis Past Anesthesia/Blood Transfusion Reactions: No Reported Reaction Past Psychological History: Anxiety Smoking Status: Never smoker Past Alcohol Use History: None Reported Past Drug Use History: None Reported - Past Family History Father Family Medical History: Cancer Additional Family Medical History / Comment(s): lung cancer Mother Family Medical History: Cancer Additional Family Medical History / Comment(s): lung cancer Medications and Allergies Home Medications Medication Instructions Recorded Confirmed Type ALPRAZolam [Xanax] 0.5 mg PO HS PRN 01/02/19 11/18/19 History Zolpidem Tartrate [Ambien Cr] 12.5 mg PO HS #3 tab 01/27/19 11/18/19 Rx fentaNYL 75MCG/HR PATCH [Duragesic 75 mcg TRANSDERM Q72H 3 Days #1 05/09/19 11/18/19 Rx 75MCG/HR] patch Albuterol Inhaler [Ventolin Hfa 2 puff INHALATION RT-Q6H PRN 11/18/19 11/18/19 History Inhaler] Morphine Sulfate 15 mg PO Q48H PRN 11/18/19 11/18/19 History Naproxen Sodium [Aleve] 220 mg PO DAILY PRN 11/18/19 11/18/19 History Ondansetron HCl [Zofran] 8 mg PO Q8H PRN 11/18/19 11/18/19 History oxyCODONE HCL [Oxaydo] 5 mg PO Q48H PRN 11/18/19 11/18/19 History Allergies Allergy/AdvReac Type Severity Reaction Status Date / Time No Known Allergies Allergy Verified 11/18/19 11:07 Physical Exam Vitals: Vital Signs Temp Pulse Resp BP BP Pulse Ox 11/19/19 08:35 97.9 F 76 18 92/60 99 11/19/19 08:00 18 11/18/19 23:00 98.7 F 74 18 108/64 97 11/18/19 19:00 98.4 F 74 18 102/68 97 11/18/19 18:07 101.3 F H 11/18/19 16:33 101.3 F H 83 16 109/72 100 Intake and Output 11/18/19 11/19/19 11/19/19 22:59 06:59 14:59 Intake Total 820 Output Total 400 600 Balance 420 -600 Intake: Oral 820 Output: Urine 400 600 Other: # Voids 1 1 GENERAL DESCRIPTION: An elderly female lying in bed, no distress. No tachypnea or accessory muscle of respiration use. HEENT: Shows Pallor , no scleral icterus. Oral mucous membrane is dry. No phary ngeal erythema or thrush NECK: Trachea central, no thyromegaly. LUNGS: Unlabored breathing. Clear to auscultation anteriorly. No wheeze or crackle. HEART: S1, S2, regular rate and rhythm. No loud murmur ABDOMEN: Mild distention and tenderness ,no guarding or rigidity, no organomegaly EXTREMITIES: No edema of feet. SKIN: No rash, no masses palpable. NEUROLOGICAL: The patient is awake, alert, oriented x3, mood and affect normal. Results CBC & Chem 7: 11/20/19 05:57 11/20/19 05:57 Labs: Abnormal Lab Results - Last 24 Hours (Table) 11/18/19 11/18/19 11/18/19 Range/Units 16:02 16:02 17:45 WBC (3.8-10.6) k/uL RBC (3.80-5.40) m/uL Hgb (11.4-16.0) gm/dL Hct (34.0-46.0) % Sodium (137-145) mmol/L Potassium (3.5-5.1) mmol/L Creatinine (0.52-1.04) mg/dL Glucose (74-99) mg/dL Calcium (8.4-10.2) mg/dL Magnesium (1.6-2.3) mg/dL AST (14-36) U/L Alkaline Phosphatase (38-126) U/L Total Protein (6.3-8.2) g/dL Albumin (3.5-5.0) g/dL CA 15-3 Antigen 60.7 H (0.0-32.3) U/mL CA 27-29 168.5 H (0.0-38.5) U/mL Urine Appearance Cloudy H (Clear) Urine Protein 1+ H (Negative) Urine Blood Trace H (Negative) Urine Nitrite Positive H (Negative) Ur Leukocyte Esterase Large H (Negative) Urine WBC 76 H (0-5) /hpf Amorphous Sediment Rare H (None) /hpf Urine Bacteria Occasional H (None) /hpf Urine Mucus Rare H (None) /hpf 11/19/19 11/19/19 Range/Units 06:02 06:02 WBC 0.8 L* (3.8-10.6) k/uL RBC 3.12 L (3.80-5.40) m/uL Hgb 9.3 L (11.4-16.0) gm/dL Hct 28.8 L (34.0-46.0) % Sodium 130 L (137-145) mmol/L Potassium 2.9 L (3.5-5.1) mmol/L Creatinine 0.37 L (0.52-1.04) mg/dL Glucose 100 H (74-99) mg/dL Calcium 7.8 L (8.4-10.2) mg/dL Magnesium 1.2 L (1.6-2.3) mg/dL AST 12 L (14-36) U/L Alkaline Phosphatase 31 L (38-126) U/L Total Protein 4.6 L (6.3-8.2) g/dL Albumin 2.3 L (3.5-5.0) g/dL CA 15-3 Antigen (0.0-32.3) U/mL CA 27-29 (0.0-38.5) U/mL Urine Appearance (Clear) Urine Protein (Negative) Urine Blood (Negative) Urine Nitrite (Negative) Ur Leukocyte Esterase (Negative) Urine WBC (0-5) /hpf Amorphous Sediment (None) /hpf Urine Bacteria (None) /hpf Urine Mucus (None) /hpf Microbiology - Last 24 Hours (Table) 11/18/19 17:45 Urine Culture - Preliminary Urine,Clean Catch 11/17/19 22:44 Blood Culture - Preliminary Blood No Growth after 24 hours Assessment and Plan Assessment: 1-patient with febrile neutropenia in this patient who did have a history of metastatic breast cancer with metastases to the peritoneum and bowel and a previous history of bowel obstruction requiring laparotomy resection this patient predominantly did have a GI symptoms and she was noticed abdominal distention and tenderness on clinical examination likely the source of this febrile neutropenia and will need to cover for enteric gram-negative both anaerobes and anaerobes (1) Febrile neutropenia Current Visit: Yes Status: Acute Code(s): D70.9 - NEUTROPENIA, UNSPECIFIED; R50.81 - FEVER PRESENTING WITH CONDITIONS CLASSIFIED ELSEWHERE SNOMED Code(s): 395795706 Plan: 1-we will obtain a CT of abdominal pelvis to better define underlying pathology 2-we'll obtain stool studies 3-continue with the cefepime 2 g. Every 8 hours however add Flagyl and discontinue the vancomycin 4-gentle IV fluids We will follow on clinical condition and cultures to further adjust medication if needed Thank you for this consultation will follow this patient with you Time with Patient: Greater than 30
[2019-11-20] MEDS: ALPRAZolam 0.5 MG TAB PO PRN ×2 (16:43→22:04)
[2019-11-20] MEDS: ZOLPIDEM 5 MG TAB PO SCH (22:04)
[2019-11-20] MEDS: FILGRASTIM-SNDZ 300 MCG/0.5 ML SYRINGE SQ SCH (22:04)
--- NOTE | 2019-11-20 23:15 | P.PN ---
Subjective Progress Note Date: 11/19/19 Principal diagnosis: Sepsis secondary urinary tract infection Febrile neutropenia Breast cancer status post chemotherapy Nausea and diarrhea. Abdominal pain. Patient is 69-year-old female with a known history of metastatic left breast cancer with mets to colon, SIADH, subclinical hypothyroidism, moderate protein calorie moderation, anxiety initially presented to ER at [facility] with complaints of persistent diarrhea and nausea. Denies any episodes of vomiting. Denies any severe abdominal discomfort. Patient does have metastatic lesions in the colon. Patient is currently receiving chemotherapy last time about 1 week ago with a Mediport. Initially denied any complaints of fever or chills. No complaints of chest pain. No cough or sputum production. No leg swelling. Denied any dysuria or hematuria. Patient was found to be neutropenic and hyponatremia with sodium level 126. CT of the abdomen pelvis showed colonic wall thickening felt to be related to her metastasis. There was a small amount of ascites noted with a question of peritoneal implants, there was small urothelial thickening and questionable for possible urinary tract infection. And small bilateral pleural effusions were noted. Patient became febrile this afternoon with T-max of 101.3 Laboratory data showed WBC of 0.9, hemoglobin 10.6 and platelets 255 Sodium level is 126 Chloride 97, bicarb is 21 BUN 12 and creatinine 0.43 Calcium 8.0 Albumin 3.0 Coronavirus not detected. Urinalysis showed cloudy, nitrite positive and large leukocyte esterase with WBC 7 11/19/2019 Patient is currently lying in the bed, feeling very weak. Patient was febrile yesterday and septic work-up was done. Patient was found to have urinary tract infection and also due to neutropenia patient was started broad-spectrum antibiotics and ID was consulted. Currently patient is on vancomycin and cefepime. Afebrile now. Potassium is 2.9 which is being replaced and magnesium as well. CT of the abdomen pelvis was ordered due to complaints of abdominal pain mainly in the lower region. No complaints of diarrhea now. No headache or dizziness. No chest pain or shortness of breath. Laboratory data reviewed. Current medications reviewed. Objective - Vital Signs Vital signs: Vital Signs Temp 98 F 11/19/19 16:40 Pulse 72 11/19/19 16:40 Resp 18 11/19/19 16:40 BP 105/68 11/19/19 16:40 Pulse Ox 18 L 11/19/19 15:40 Intake & Output 11/19/19 11/19/19 11/20/19 06:59 18:59 06:59 Intake Total 820 100 Output Total 600 Balance 220 100 Intake: Oral 820 100 Output: Urine 600 Other: # Voids 1 - Exam PHYSICAL EXAMINATION: Patient is lying in the bed comfortably, no acute distress, awake alert and oriented.. HEENT: Normocephalic. Neck is supple. Pupils reactive. Nostrils clear. Oral cavity is moist. Ears reveal no drainage. Neck reveals no JVD, carotid bruits, or thyromegaly. CHEST EXAMINATION: Trachea is central. Symmetrical expansion. Lung collazo clear to auscultation and percussion. CARDIAC: Normal S1, S2 with no gallops. No murmurs ABDOMEN: Soft. Bowel sounds present. RLQ tenderness.. No organomegaly. No abdominal bruits. Extremities: reveal no edema. No clubbing or cyanosis Neurologically awake, alert, oriented x3 with well-coordinated movements. No focal deficits noted Skin: No rash or skin lesions. Psychiatric: Coperative. Nonsuicidal Musculoskeletal: No joint swelling or deformity. Normal range of motion. - Labs CBC & Chem 7: 11/20/19 05:57 11/20/19 05:57 Labs: Abnormal Lab Results - Last 24 Hours (Table) 11/18/19 11/18/19 11/19/19 Range/Units 16:02 16:02 06:02 WBC 0.8 L* (3.8-10.6) k/uL RBC 3.12 L (3.80-5.40) m/uL Hgb 9.3 L (11.4-16.0) gm/dL Hct 28.8 L (34.0-46.0) % Sodium (137-145) mmol/L Potassium (3.5-5.1) mmol/L Creatinine (0.52-1.04) mg/dL Glucose (74-99) mg/dL Calcium (8.4-10.2) mg/dL Magnesium (1.6-2.3) mg/dL AST (14-36) U/L Alkaline Phosphatase (38-126) U/L Total Protein (6.3-8.2) g/dL Albumin (3.5-5.0) g/dL CA 15-3 Antigen 60.7 H (0.0-32.3) U/mL CA 27-29 168.5 H (0.0-38.5) U/mL 11/19/19 Range/Units 06:02 WBC (3.8-10.6) k/uL RBC (3.80-5.40) m/uL Hgb (11.4-16.0) gm/dL Hct (34.0-46.0) % Sodium 130 L (137-145) mmol/L Potassium 2.9 L (3.5-5.1) mmol/L Creatinine 0.37 L (0.52-1.04) mg/dL Glucose 100 H (74-99) mg/dL Calcium 7.8 L (8.4-10.2) mg/dL Magnesium 1.2 L (1.6-2.3) mg/dL AST 12 L (14-36) U/L Alkaline Phosphatase 31 L (38-126) U/L Total Protein 4.6 L (6.3-8.2) g/dL Albumin 2.3 L (3.5-5.0) g/dL CA 15-3 Antigen (0.0-32.3) U/mL CA 27-29 (0.0-38.5) U/mL Microbiology - Last 24 Hours (Table) 11/18/19 17:45 Urine Culture - Preliminary Urine,Clean Catch 11/17/19 22:44 Blood Culture - Preliminary Blood No Growth after 24 hours Assessment and Plan Assessment: Acute diarrhea along with nausea due to chemotheraphy. Febrile neutropenia Bicytopenia due to chemotherapy. Sepsis secondary to urinary tract infection Hyponatremia likely hypoosmolar. Metastatic breast cancer with mets to colon and peritoneum. Currently on chemotherapy 1 week ago Chronic back pain with compression fracture at T7 History of SIADH Hydronephrosis Subclinical hypothyroidism Right carpal tunnel syndrome History of bowel obstruction Anxiety Moderate protein calorie malnutrition Plan: Patient will be continued on IV hydration with normal saline. Continue with broad-spectrum antibiotics in the form of vancomycin and cefepime. Follow-up urine culture reports. Tumor markers were ordered as per oncology recommendations. Continue to monitor closely. Further recommendations based on clinical course. Prognosis guarded with multiple medical problems and advanced cancer. Time with Patient: Greater than 30
--- NOTE | 2019-11-20 23:23 | P.PN ---
Subjective Progress Note Date: 11/20/19 Principal diagnosis: Sepsis secondary urinary tract infection Febrile neutropenia Breast cancer status post chemotherapy Nausea and diarrhea. Abdominal pain. Patient is 69-year-old female with a known history of metastatic left breast cancer with mets to colon, SIADH, subclinical hypothyroidism, moderate protein calorie moderation, anxiety initially presented to ER at [facility] with complaints of persistent diarrhea and nausea. Denies any episodes of vomiting. Denies any severe abdominal discomfort. Patient does have metastatic lesions in the colon. Patient is currently receiving chemotherapy last time about 1 week ago with a Mediport. Initially denied any complaints of fever or chills. No complaints of chest pain. No cough or sputum production. No leg swelling. Denied any dysuria or hematuria. Patient was found to be neutropenic and hyponatremia with sodium level 126. CT of the abdomen pelvis showed colonic wall thickening felt to be related to her metastasis. There was a small amount of ascites noted with a question of peritoneal implants, there was small urothelial thickening and questionable for possible urinary tract infection. And small bilateral pleural effusions were noted. Patient became febrile this afternoon with T-max of 101.3 Laboratory data showed WBC of 0.9, hemoglobin 10.6 and platelets 255 Sodium level is 126 Chloride 97, bicarb is 21 BUN 12 and creatinine 0.43 Calcium 8.0 Albumin 3.0 Coronavirus not detected. Urinalysis showed cloudy, nitrite positive and large leukocyte esterase with WBC 7 11/19/2019 Patient is currently lying in the bed, feeling very weak. Patient was febrile yesterday and septic work-up was done. Patient was found to have urinary tract infection and also due to neutropenia patient was started broad-spectrum antibiotics and ID was consulted. Currently patient is on vancomycin and cefepime. Afebrile now. Potassium is 2.9 which is being replaced and magnesium as well. CT of the abdomen pelvis was ordered due to complaints of abdominal pain mainly in the lower region. No complaints of diarrhea now. No headache or dizziness. No chest pain or shortness of breath. 11/20/2019 Patient is currently lying in the bed comfortably. Afebrile overnight. Currently being continued on broad-spectrum antibiotics in the form of vanco mycin and cefepime. ID is following. Urine culture is pending. Otherwise patient denied any chest pain or shortness breath. Patient still having abdominal discomfort and CT of the abdomen pelvis was ordered yesterday which showed small bowel dilatation up to 3 cm with air-fluid levels. Small bowel obstruction suggested. Patient was placed on NG tube and diet change to nothing by mouth. General surgery was consulted. Patient will be continued on IV hydration. Current medications reviewed. Laboratory data reviewed. Current medications reviewed. Objective - Vital Signs Vital signs: Vital Signs Temp 98.5 F 11/20/19 14:45 Pulse 74 11/20/19 14:45 Resp 16 11/20/19 14:45 BP 98/54 11/20/19 14:45 Pulse Ox 100 11/20/19 14:45 Intake & Output 11/20/19 11/20/19 11/21/19 06:59 18:59 06:59 Intake Total 1640 420 0 Output Total 625 340 Balance 1640 -205 -340 Intake: Oral 1640 420 0 Output: Gastric Drainage 40 Urine 625 300 Other: Voiding Method Toilet # Voids 1 1 # Bowel Movements 1 1 - Exam PHYSICAL EXAMINATION: Patient is lying in the bed comfortably, no acute distress, awake alert and joanna ented.. HEENT: Normocephalic. Neck is supple. Pupils reactive. Nostrils clear. Oral cavity is moist. Ears reveal no drainage. Neck reveals no JVD, carotid bruits, or thyromegaly. CHEST EXAMINATION: Trachea is central. Symmetrical expansion. Lung collazo clear to auscultation and percussion. CARDIAC: Normal S1, S2 with no gallops. No murmurs ABDOMEN: Soft. Bowel sounds present. RLQ tenderness.. No organomegaly. No abdominal bruits. Extremities: reveal no edema. No clubbing or cyanosis Neurologically awake, alert, oriented x3 with well-coordinated movements. No focal deficits noted Skin: No rash or skin lesions. Psychiatric: Coperative. Nonsuicidal Musculoskeletal: No joint swelling or deformity. Normal range of motion. - Labs CBC & Chem 7: 11/20/19 05:57 11/20/19 05:57 Labs: Abnormal Lab Results - Last 24 Hours (Table) 11/20/19 11/20/19 Range/Units 05:57 05:57 RBC 3.07 L (3.80-5.40) m/uL Hgb 9.2 L (11.4-16.0) gm/dL Hct 28.2 L (34.0-46.0) % Metamyelocytes # (Man) 0.12 H (0) k/uL Sodium 129 L (137-145) mmol/L Carbon Dioxide 20 L (22-30) mmol/L BUN 5 L (7-17) mg/dL Creatinine 0.36 L (0.52-1.04) mg/dL Calcium 7.5 L (8.4-10.2) mg/dL Microbiology - Last 24 Hours (Table) 11/18/19 17:45 Blood Culture - Preliminary Blood No Growth after 48 hours 11/20/19 08:00 Stool Culture - Preliminary Stool 11/17/19 22:44 Blood Culture - Preliminary Blood No Growth after 48 hours Assessment and Plan Assessment: Acute small bowel obstruction Acute diarrhea along with nausea due to chemotheraphy. Febrile neutropenia Bicytopenia due to chemotherapy. Sepsis secondary to urinary tract infection Hyponatremia likely hypoosmolar. Metastatic breast cancer with mets to colon and peritoneum. Currently on chemotherapy 1 week prior to admission Chronic back pain with compression fracture at T7 History of SIADH Hydronephrosis Subclinical hypothyroidism Right carpal tunnel syndrome History of bowel obstruction Anxiety Moderate protein calorie malnutrition Plan: Patient will be kept nothing by mouth due to bowel obstruction. General surgery was consulted. NG tube was placed. Patient will be continued on IV hydration with normal saline. Continue with broad-spectrum antibiotics in the form of vancomycin and cefepime. Follow-up urine culture reports. Tumor markers were ordered as per oncology recommendations. Continue to monitor closely. Further recommendations based on clinical course. Prognosis guarded with multiple medical problems and advanced cancer. Time with Patient: Greater than 30
[2019-11-21] MEDS: CEFEPIME 2 GM in SODIUM CHLORIDE 0.9% 100 ML IVPB SCH ×3 (00:06→17:13)
[2019-11-21] MEDS: metroNIDAZOLE-NS PMX 500 MG in SALINE 1 100ML.BAG IVPB SCH ×3 (00:51→15:34)
[2019-11-21] MEDS: HYDROmorphone 1 MG/ML 1 ML SYRINGE IVP PRN ×7 (03:06→21:32)
[2019-11-21] MEDS: SODIUM CHLORIDE 0.9% 1,000 ML IV SCH ×2 (05:53→08:39)
--- NOTE | 2019-11-21 07:25 | PN ---
PROGRESS NOTE DATE OF SERVICE: 11/20/2019 REASON FOR FOLLOWUP: Febrile neutropenia, abdominal source. INTERVAL HISTORY: Patient is currently afebrile, has been breathing comfortably. Still complaining of abdominal discomfort and unable to keep anything down. No nausea, vomiting, or any worsening diarrhea. PHYSICAL EXAMINATION: Blood pressure 98/54 with a pulse of 74, temperature 98.5. She is 100% on room air. The patient is an elderly female lying in bed in no distress. Respiratory system: Unlabored breathing. Clear to auscultation anteriorly. Heart S1, S2. Regular rate and rhythm. ABDOMEN: Soft. Abdomen distended. No guarding. No rigidity. LABS: Hemoglobin 9.8, white count 4.0. BUN of 5, creatinine 0.36. Blood culture has been negative. DIAGNOSTIC IMPRESSION AND PLAN: Patient admitted to the hospital with febrile neutropenia in this patient who did have metastatic breast cancer and previous history of bowel obstruction requiring surgery. CT abdomen and pelvis did show significant dilated of the cecum and small bowel dilatation for General Surgery has been consulted and NG has been ordered. Patient to continue with cefepime and Flagyl and monitor clinical course closely. MMODL / IJN: [id number] /
[2019-11-21 07:50] LABS: HCT 32.7 % (34.0-46.0); HGB 10.2 gm/dL (11.4-16.0); Hypochromasia Slight; MCH 28.7 pg (25.0-35.0); MCHC 31.2 g/dL (31.0-37.0); MCV 91.9 fL (80.0-100.0); Mean Platelet Volume 7.4; Platelet Count 322 k/uL (150-450); RBC 3.56 m/uL (3.80-5.40); RDW 15.7 % (11.5-15.5); WBC 19.4 k/uL (3.8-10.6)
[2019-11-21 08:01] LABS: African American GFR (CKD) >90 (>60 ml/min/1.73 sqM); Anion Gap 4 mmol/L; Blood Urea Nitrogen 3 mg/dL (7-17); Calcium 7.9 mg/dL (8.4-10.2); Carbon Dioxide 20 mmol/L (22-30); Chloride 106 mmol/L (98-107); Glucose 76 mg/dL (74-99); Magnesium 1.5 mg/dL (1.6-2.3); Non-African American GFR(CKD) >90 (>60 ml/min/1.73 sqM); Potassium 4.2 mmol/L (3.5-5.1); Sodium 130 mmol/L (137-145)
[2019-11-21] MEDS ORDERED: Magnesium Replacement Protocol 1 EACH MISC MISCELLANE PRN ×2 (08:21→20:01)
--- NOTE | 2019-11-21 08:24 | P.PN ---
Subjective From a course: Patient is 69-year-old female with a known history of metastatic left breast cancer with mets to colon, SIADH, subclinical hypothyroidism, moderate protein calorie moderation, anxiety initially presented to ER at [facility] with complaints of persistent diarrhea and nausea. Denies any episodes of vomiting. Denies any severe abdominal discomfort. Patient does have metastatic lesions in the colon. Patient is currently receiving chemotherapy last time about 1 week ago with a Mediport. Initially denied any complaints of fever or chills. No complaints of chest pain. No cough or sputum production. No leg swelling. Denied any dysuria or hematuria. Patient was found to be neutropenic and hyponatremia with sodium level 126. CT of the abdomen pelvis showed colonic wall thickening felt to be related to her metastasis. There was a small amount of ascites noted with a question of peritoneal implants, there was small urothelial thickening and questionable for possible urinary tract infection. And small bilateral pleural effusions were noted. Patient became febrile this afternoon with T-max of 101.3 Laboratory data showed WBC of 0.9, hemoglobin 10.6 and platelets 255 Sodium level is 126 Chloride 97, bicarb is 21 BUN 12 and creatinine 0.43 Calcium 8.0 Albumin 3.0 Coronavirus not detected. Urinalysis showed cloudy, nitrite positive and large leukocyte esterase with WBC 7 11/19/2019 Patient is currently lying in the bed, feeling very weak. Patient was febrile yesterday and septic work-up was done. Patient was found to have urinary tract infection and also due to neutropenia patient was started broad-spectrum antibiotics and ID was consulted. Currently patient is on vancomycin and cefepime. Afebrile now. Potassium is 2.9 which is being replaced and magnesium as well. CT of the abdomen pelvis was ordered due to complaints of abdominal pain mainly in the lower region. No complaints of diarrhea now. No headache or dizziness. No chest pain or shortness of breath. 11/20/2019 Patient is currently lying in the bed comfortably. Afebrile overnight. Currently being continued on broad-spectrum antibiotics in the form of vancomycin and cefepime. ID is following. Urine culture is pending. Otherwise patient denied any chest pain or shortness breath. Patient still having abdominal discomfort and CT of the abdomen pelvis was ordered yesterday which showed small bowel dilatation up to 3 cm with air-fluid levels. Small bowel obstruction suggested. Patient was placed on NG tube and diet change to nothing by mouth. General surgery was consulted. Patient will be continued on IV hydration. Subjective, this is the first day I take care of the patient 11/21/2019 This is a pleasant lady who was admitted on 11/16 for diarrhea, she came from [facility]. She found to have febrile neutropenia, bowel obstruction and UTI. Patient is been evaluated by several consults INCLUDING infectious disease, surgery and oncology. She has history of metastatic left breast cancer to bone on possible to: On peritoneal she got chemotherapy about one week earlier. She's been treated currently on cefepime and IV Flagyl, also she is on normal saline at 90 mL/h. She has increased tumor markers of CAD 15-30 into Efren and CA 27-29, CT of the abdomen showing bowel obstruction. And urine culture came back positive for staph aureus, patient received therapy before with IV vancomycin, we'll going to check with ID team if she is going to need more therapy. She feels generally weak, she still nothing by mouth, with no vomiting, NG tube is in place with little or no secretions. She has. Umbilical abdominal pain and tenderness, she was passing gases and have bowel movement the night before yesterday as per patient Blood pressure on the low-normal signed 94/69 and reversal vitals are stable. WBC went up to 19.4 K, sodium 1:30, creatinine 0.3. Magnesium 1.5 Review of systems HEENT: No recent visual problems or hearing problems. Denied any sore throat. CARDIOVASCULAR: No orthopnea, PND, no palpitations, no syncope. PULMONARY: No shortness of breath, no cough, no hemoptysis. NEUROLOGICAL: No headaches, no weakness, no numbness. HEMATOLOGICAL: Denies any bleeding or petechiae. GENITOURINARY: Denies any burning micturition, frequency, or urgency. MUSCULOSKELETAL/RHEUMATOLOGICAL: Denies any joint pain, swelling, or any muscle pain. ENDOCRINE: Denies any polyuria or polydipsia. Active Medications Generic Name Dose Route Start Last Admin Trade Name Freq PRN Reason Stop Dose Admin Acetaminophen 650 mg 11/17/19 22:33 11/18/19 16:35 Tylenol Tab PO 650 mg Q6HR PRN Administration Mild Pain or Fever > 100.5 Albuterol Sulfate 2 mg 11/18/19 00:34 Ventolin Nebulized INHALATION Q6HR PRN Shortness Of Breath Or Wheezing Alprazolam 0.5 mg 11/17/19 23:32 11/20/19 22:04 Xanax PO 0.5 mg TID PRN Administration Anxiety Fentanyl 1 patch 11/19/19 09:00 11/19/19 09:07 Duragesic 75mcg/Hr Patch TRANSDERM 1 patch Q72H TREVOR Administration Filgrastim-Sndz 300 mcg 11/18/19 21:00 11/20/19 22:04 Zarxio SQ 300 mcg HS TREVOR Administration Hydromorphone HCl 1 mg 11/20/19 18:06 11/21/19 06:45 Dilaudid IVP 1 mg Q3HR PRN Administration Severe Pain Sodium Chloride 1,000 mls @ 90 mls/hr 11/17/19 22:45 11/21/19 05:53 Saline 0.9% IV Not Given .Q11H7M TREVOR Cefepime HCl 2 gm/ Sodium 100 mls @ 200 mls/hr 11/19/19 00:00 11/21/19 00:06 Chloride IVPB 200 mls/hr Q8HR TREVOR Administration Metronidazole 500 mg/ IV 100 mls @ 100 mls/hr 11/20/19 00:00 11/21/19 00:51 Solution IVPB 100 mls/hr Q8HR TREVOR Administration Miscellaneous Information 1 each 11/19/19 14:21 Potassium Per Protocol MISCELLANE DAILY PRN Per Protocol Protocol Miscellaneous Information 1 each 11/21/19 08:21 Magnesium Per Protocol MISCELLANE DAILY PRN Per Protocol Protocol Naloxone HCl 0.2 mg 11/17/19 22:33 Narcan IV Q2M PRN Opioid Reversal Ondansetron HCl 4 mg 11/17/19 22:33 11/19/19 08:45 Zofran IVP 4 mg Q8HR PRN Administration Nausea And Vomiting Pantoprazole Sodium 40 mg 11/21/19 09:00 Protonix IVP DAILY TREVOR Zolpidem Tartrate 5 mg 11/18/19 21:00 11/20/19 22:04 Ambien PO 5 mg HS TREVOR Administration Objective - Vital Signs Vital signs: Vital Signs Temp 98.3 F 11/20/19 23:00 Pulse 65 11/20/19 23:00 Resp 16 11/20/19 23:00 BP 94/69 11/20/19 23:00 Pulse Ox 97 11/20/19 23:00 Intake & Output 11/20/19 11/21/19 11/21/19 18:59 06:59 18:59 Intake Total 420 0 Output Total 625 1090 Balance -205 -1090 Intake: Oral 420 0 Output: Gastric Drainage 40 Urine 625 1050 Other: Voiding Method Toilet # Voids 1 # Bowel Movements 1 - Exam GENERAL: The patient is alert and oriented x3, not in any acute distress. Well developed, well nourished. HEENT: Pupils are round and equally reacting to light. EOMI. No scleral icterus. No conjunctival pallor. Normocephalic, atraumatic. No pharyngeal erythema. No thyromegaly. CARDIOVASCULAR: S1 and S2 present. No murmurs, rubs, or gallops. PULMONARY: Chest is clear to auscultation, no wheezing or crackles. -ABDOMEN: Soft, periumbilical tenderness, nondistended, normoactive bowel sounds. No palpable organomegaly. NG tube is in a Place MUSCULOSKELETAL: No joint swelling or deformity. EXTREMITIES: No cyanosis, clubbing, or pedal edema. NEUROLOGICAL: Gross neurological examination did not reveal any focal deficits. SKIN: No rashes. no petechiae. - Labs CBC & Chem 7: 11/21/19 07:36 11/21/19 07:36 Labs: Abnormal Lab Results - Last 24 Hours (Table) 11/21/19 11/21/19 Range/Units 07:36 07:36 WBC 19.4 H (3.8-10.6) k/uL RBC 3.56 L (3.80-5.40) m/uL Hgb 10.2 L (11.4-16.0) gm/dL Hct 32.7 L (34.0-46.0) % RDW 15.7 H (11.5-15.5) % Sodium 130 L (137-145) mmol/L Carbon Dioxide 20 L (22-30) mmol/L BUN 3 L (7-17) mg/dL Creatinine 0.38 L (0.52-1.04) mg/dL Calcium 7.9 L (8.4-10.2) mg/dL Magnesium 1.5 L (1.6-2.3) mg/dL Microbiology - Last 24 Hours (Table) 11/17/19 22:44 Blood Culture - Preliminary Blood No Growth after 72 hours 11/18/19 17:45 Urine Culture - Preliminary Urine,Clean Catch Presumptive Staph aureus 11/18/19 17:45 Blood Culture - Preliminary Blood No Growth after 48 hours 11/20/19 08:00 Stool Culture - Preliminary Stool Assessment and Plan Assessment: Acute small bowel obstruction Acute diarrhea along with nausea due to chemotheraphy. Febrile neutropenia Bicytopenia due to chemotherapy. Sepsis secondary to urinary tract infection Hyponatremia likely hypoosmolar. Metastatic breast cancer with mets to colon and peritoneum. Currently on chemotherapy 1 week prior to admission Chronic back pain with compression fracture at T7 History of SIADH Hydronephrosis Subclinical hypothyroidism Right carpal tunnel syndrome History of bowel obstruction Anxiety Moderate protein calorie malnutrition Plan: This is a pleasant 69 years old female who presents with small bowel obstruction, febrile neutropenia related to her chemotherapy for breast cancer and UTI. Patient's vitals closely by infectious disease, surgery and oncology service. Continue with antibiotics as per ID team recommendation. Continue with IV fluids. Labs and medication were reviewed.. Continue same treatment. Continue with symptomatic treatment. Resume home medication. Monitor lytes and vitals. DVT and GI prophylaxis. Further recommendations of the clinical course of the patient DVT prophylaxis: Subcutaneous heparin GI Prophylaxis: Ppi Prognosis is guarded
[2019-11-21] MEDS: PANTOPRAZOLE 40 MG/10 ML VIAL IVP SCH (08:37)
--- NOTE | 2019-11-21 08:44 | XR ---
EXAMINATION TYPE: XR abdomen 2V DATE OF EXAM: 11/21/2019 COMPARISON: 06/17/2019 HISTORY: Follow-up ileus TECHNIQUE: One view abdominal series FINDINGS: Bilateral lower lobe infiltrate and small effusion with elevated left hemidiaphragm. NG tube is seen to the level of the distal esophagus. Scoliosis with degenerative disc disease and diffuse osteopenia noted. Surgical clips in the right up per quadrant. Prominent air and contrast-filled bowel loops are noted. IMPRESSION: 1. Nonspecific abdomen contrast seen extending into the colon. 2. Bilateral lower lobe infiltrate and small effusion. 3. The NG tube could be advanced is only seen to the level of the distal esophagus.
[2019-11-21] MEDS: HEPARIN SODIUM,PORCINE 5,000 UNIT/ML 1 ML VIAL SQ SCH ×2 (08:46→20:50)
[2019-11-21 09:07] LABS: Band Neutrophils % 9 %; Lymphocytes # (M) 1.55 k/uL (1.0-4.8); Monocytes # (M) 2.33 k/uL (0-1.0); Neutrophils % (M) 71 %; Nucleated Red Blood Cells 0 /100 WBC (0-0); Total Cells Counted 100
[2019-11-21 09:08] LABS: Poikilocytosis (M) Present; Polychromasia Present
[2019-11-21] MEDS ORDERED: VANCOMYCIN IV PER PHARMACY 1 EACH MISC MISCELLANE PRN (09:21)
[2019-11-21] MEDS: VANCOMYCIN 750 MG in SODIUM CHLORIDE 0.9% 250 ML IVPB SCH ×2 (10:27→20:49)
[2019-11-21] MEDS: MAGNESIUM SULFATE-D5W PMX 1 GM in DEXTROSE/WATER 1 100ML.BAG IVPB SCH ×2 (12:40→13:55)
[2019-11-21 13:06] LABS: Reticulocyte % 2.8 % (0.5-2.0)
[2019-11-21 13:41] LABS: Appearance,Urine Clear (Clear); Color,Urine Yellow; Specific Gravity,Urine 1.005 (1.001-1.035)
[2019-11-21 13:42] LABS: Bilirubin,Urine Negative (Negative); Blood,Urine Negative (Negative); Glucose,Urine (UA) Negative (Negative); Ketones,Urine 1+ (Negative); Leukocyte Esterase,Urine Negative (Negative); Nitrite,Urine Negative (Negative); Protein,Urine Negative (Negative); Urobilinogen,Urine <2.0 mg/dL (<2.0)
[2019-11-21 13:49] LABS: Albumin 2.2 g/dL (3.5-5.0); Bilirubin, Delta 0.1 mg/dL (0.0-0.2); Bilirubin,Unconjugated 0.3 mg/dL (0.0-1.1); Total Bilirubin 0.4 mg/dL (0.2-1.3); Total Protein 4.5 g/dL (6.3-8.2)
--- NOTE | 2019-11-21 17:38 | P.GSCN ---
History of Present Illness Consult date: 11/21/19 History of present illness: Patient seen and evaluated. She is well known to me due to previous exploratory laparotomy 1 year ago for acute small bowel obstruction. She reports doing well over the last 6-8 months with exception of presumed metastatic disease to her co suma. She denies any previous colonoscopies with exception of over a year ago. No additional biopsy pathology has been made along the colon to completely confirm metastatic disease to the colon. She reports change in bowel habits for the past 4 weeks with diarrhea where often she is constipated and has been on a bowel regimen secondary to multiple chronic pain meds. In the last 24 hours, patient reports passing of flatus. She denies any abdominal pain. She denies any moderate distention. On exam, incisional hernia of 4 cm above umbilicus without skin changes, incarceration. Hernia is easily reducible. CT of the abdomen and pelvis independently reviewed with focal thickening along the splenic flexure and descending colon, short segment. PLAN: 1. There has been no output from the nasogastric tube and she is passing flatus without any moderate abdominal pain. I removed and discontinued her nasogastric tube. 2. May start liquid diet. 3. Recommend colonoscopy as she has abnormality at the splenic flexure which may also be a new primary colon malignancy versus metastatic disease. She confirms no recent PET/CT scan in 2-3 years. 4. In the interim, conservative management. Past Medical History Past Medical History: Cancer Additional Past Medical History / Comment(s): Metastatic lt breast cancer with metastases to peritoneal area and colon. SIADH, Hydronephrosis, subclinical hypothyrodisim, protein calorie malnutrition,carpel tunnel right hand with sx. bilateral cataracts with sx, bowel obstruction History of Any Multi-Drug Resistant Organisms: None Reported Past Surgical History: Appendectomy, Cholecystectomy, Hysterectomy Additional Past Surgical History / Comment(s): Lumpectomy involving the left breast, previous history of abdominal surgery for small bowel obstruction x2, right uretheral stent with removal, left subclavian stent secondary to stenosis Past Anesthesia/Blood Transfusion Reactions: No Reported Reaction Past Psychological History: Anxiety Smoking Status: Never smoker Past Alcohol Use History: None Reported Past Drug Use History: None Reported - Past Family History Father Family Medical History: Cancer Additional Family Medical History / Comment(s): lung cancer Mother Family Medical History: Cancer Additional Family Medical History / Comment(s): lung cancer Medications and Allergies Home Medications Medication Instructions Recorded Confirmed Type ALPRAZolam [Xanax] 0.5 mg PO HS PRN 01/02/19 11/18/19 History Zolpidem Tartrate [Ambien Cr] 12.5 mg PO HS #3 tab 01/27/19 11/18/19 Rx fentaNYL 75MCG/HR PATCH [Duragesic 75 mcg TRANSDERM Q72H 3 Days #1 05/09/19 11/18/19 Rx 75MCG/HR] patch Albuterol Inhaler [Ventolin Hfa 2 puff INHALATION RT-Q6H PRN 11/18/19 11/18/19 History Inhaler] Morphine Sulfate 15 mg PO Q48H PRN 11/18/19 11/18/19 History Naproxen Sodium [Aleve] 220 mg PO DAILY PRN 11/18/19 11/18/19 History Ondansetron HCl [Zofran] 8 mg PO Q8H PRN 11/18/19 11/18/19 History oxyCODONE HCL [Oxaydo] 5 mg PO Q48H PRN 11/18/19 11/18/19 History Allergies Allergy/AdvReac Type Severity Reaction Status Date / Time No Known Allergies Allergy Verified 11/18/19 11:07 Surgical - Exam Vital Signs Temp Pulse Resp BP Pulse Ox 98.6 F 71 16 115/85 100 11/17/19 22:01 11/17/19 22:01 11/17/19 22:01 11/17/19 22:01 11/17/19 22:01 Results - Labs 11/21/19 07:36 11/21/19 07:36 Abnormal Lab Results - Last 24 Hours (Table) 11/21/19 11/21/19 11/21/19 Range/Units 07:36 07:36 07:36 WBC 19.4 H (3.8-10.6) k/uL RBC 3.56 L (3.80-5.40) m/uL Hgb 10.2 L (11.4-16.0) gm/dL Hct 32.7 L (34.0-46.0) % RDW 15.7 H (11.5-15.5) % Neutrophils # (Manual) 15.50 H (1.3-7.7) k/uL Monocytes # (Manual) 2.33 H (0-1.0) k/uL Retic Count 2.8 H (0.5-2.0) % Sodium 130 L (137-145) mmol/L Carbon Dioxide 20 L (22-30) mmol/L BUN 3 L (7-17) mg/dL Creatinine 0.38 L (0.52-1.04) mg/dL Calcium 7.9 L (8.4-10.2) mg/dL Magnesium 1.5 L (1.6-2.3) mg/dL Total Protein (6.3-8.2) g/dL Albumin (3.5-5.0) g/dL Urine Ketones (Negative) 11/21/19 11/21/19 Range/Units 12:46 13:00 WBC (3.8-10.6) k/uL RBC (3.80-5.40) m/uL Hgb (11.4-16.0) gm/dL Hct (34.0-46.0) % RDW (11.5-15.5) % Neutrophils # (Manual) (1.3-7.7) k/uL Monocytes # (Manual) (0-1.0) k/uL Retic Count (0.5-2.0) % Sodium (137-145) mmol/L Carbon Dioxide (22-30) mmol/L BUN (7-17) mg/dL Creatinine (0.52-1.04) mg/dL Calcium (8.4-10.2) mg/dL Magnesium (1.6-2.3) mg/dL Total Protein 4.5 L (6.3-8.2) g/dL Albumin 2.2 L (3.5-5.0) g/dL Urine Ketones 1+ H (Negative) Microbiology - Last 24 Hours (Table) 11/17/19 22:44 Blood Culture - Preliminary Blood No Growth after 72 hours 11/18/19 17:45 Urine Culture - Preliminary Urine,Clean Catch Presumptive Staph aureus 11/18/19 17:45 Blood Culture - Preliminary Blood No Growth after 48 hours 11/20/19 08:00 Stool Culture - Preliminary Stool Diabetes panel 11/21/19 11/21/19 Range/Units 07:36 13:00 Sodium 130 L (137-145) mmol/L Potassium 4.2 (3.5-5.1) mmol/L Chloride 106 (98-107) mmol/L Carbon Dioxide 20 L (22-30) mmol/L BUN 3 L (7-17) mg/dL Creatinine 0.38 L (0.52-1.04) mg/dL Glucose 76 (74-99) mg/dL Calcium 7.9 L (8.4-10.2) mg/dL AST 14 (14-36) U/L ALT 6 (4-34) U/L Alkaline Phosphatase 67 (38-126) U/L Total Protein 4.5 L (6.3-8.2) g/dL Albumin 2.2 L (3.5-5.0) g/dL Calcium panel 11/21/19 11/21/19 Range/Units 07:36 13:00 Calcium 7.9 L (8.4-10.2) mg/dL Albumin 2.2 L (3.5-5.0) g/dL Pituitary panel 11/21/19 Range/Units 07:36 Sodium 130 L (137-145) mmol/L Potassium 4.2 (3.5-5.1) mmol/L Chloride 106 (98-107) mmol/L Carbon Dioxide 20 L (22-30) mmol/L BUN 3 L (7-17) mg/dL Creatinine 0.38 L (0.52-1.04) mg/dL Glucose 76 (74-99) mg/dL Calcium 7.9 L (8.4-10.2) mg/dL Adrenal panel 11/21/19 11/21/19 Range/Units 07:36 13:00 Sodium 130 L (137-145) mmol/L Potassium 4.2 (3.5-5.1) mmol/L Chloride 106 (98-107) mmol/L Carbon Dioxide 20 L (22-30) mmol/L BUN 3 L (7-17) mg/dL Creatinine 0.38 L (0.52-1.04) mg/dL Glucose 76 (74-99) mg/dL Calcium 7.9 L (8.4-10.2) mg/dL Total Bilirubin 0.4 (0.2-1.3) mg/dL AST 14 (14-36) U/L ALT 6 (4-34) U/L Alkaline Phosphatase 67 (38-126) U/L Total Protein 4.5 L (6.3-8.2) g/dL Albumin 2.2 L (3.5-5.0) g/dL
[2019-11-21 18:47] LABS: Folate, Serum 9.4 ng/mL
[2019-11-21 18:49] LABS: % Iron Saturation 14.11 (12.00-45.00); Ferritin 758.3 ng/mL (10.0-291.0)
[2019-11-21] MEDS: ALPRAZolam 0.5 MG TAB PO PRN (21:32)
[2019-11-21] MEDS: ZOLPIDEM 5 MG TAB PO SCH (21:32)
--- NOTE | 2019-11-21 23:33 | PN ---
PROGRESS NOTE DATE OF SERVICE: 11/21/2019 REASON FOR FOLLOWUP: 1. Febrile neutropenia. Source is likely abdominal. 2. Positive urine culture with Staph aureus. INTERVAL HISTORY: The patient is currently afebrile. The patient is breathing comfortably. The patient did have the NG. Abdominal discomfort but no worsening. No chest pain, shortness of breath or cough and no diarrhea. PHYSICAL EXAMINATION: Blood pressure 101/65 with a pulse of 84, temperature 97.8. She is 96% on room air. General description is an elderly female lying in bed in no distress. RESPIRATORY SYSTEM: Unlabored breathing. Clear to auscultation anteriorly. HEART: S1, S2. Regular rate and rhythm. ABDOMEN: Soft. Mildly distended. No guarding or rigidity. LABS: Hemoglobin is 10.8, white count . BUN of 3, creatinine 0.38. Repeat UA is negative. DIAGNOSTIC IMPRESSION AND PLAN: 1. Patient with febrile neutropenia. Source is likely abdominal in this patient who has significant cecal dilatation and small bowel obstruction. Currently covered with cefepime and Flagyl; to continue. 2. Positive culture with Staphylococcus aureus. Repeat UA is negative. Possible colonization or . Vancomycin will be discontinued and will monitor clinical course closely. MMODL / IJN: [id number] /
[2019-11-22] MEDS: CEFEPIME 2 GM in SODIUM CHLORIDE 0.9% 100 ML IVPB SCH ×3 (00:51→17:08)
[2019-11-22] MEDS: HYDROmorphone 1 MG/ML 1 ML SYRINGE IVP PRN ×7 (00:55→22:01)
[2019-11-22] MEDS: metroNIDAZOLE-NS PMX 500 MG in SALINE 1 100ML.BAG IVPB SCH ×3 (01:23→18:30)
[2019-11-22] MEDS: SODIUM CHLORIDE 0.9% 1,000 ML IV SCH ×2 (02:08→14:42)
[2019-11-22 05:19] LABS: HCT 29.3 % (34.0-46.0); HGB 9.4 gm/dL (11.4-16.0); Hypochromasia Slight; MCH 29.1 pg (25.0-35.0); MCV 90.8 fL (80.0-100.0); Mean Platelet Volume 7.3; Platelet Count 311 k/uL (150-450); RBC 3.23 m/uL (3.80-5.40); RDW 15.5 % (11.5-15.5); WBC 19.4 k/uL (3.8-10.6)
[2019-11-22 05:29] LABS: African American GFR (CKD) >90 (>60 ml/min/1.73 sqM); Anion Gap 4 mmol/L; Blood Urea Nitrogen 3 mg/dL (7-17); Calcium 6.9 mg/dL (8.4-10.2); Carbon Dioxide 20 mmol/L (22-30); Chloride 105 mmol/L (98-107); Glucose 86 mg/dL (74-99); Magnesium 1.7 mg/dL (1.6-2.3); Non-African American GFR(CKD) >90 (>60 ml/min/1.73 sqM); Potassium 3.3 mmol/L (3.5-5.1); Sodium 129 mmol/L (137-145)
[2019-11-22 05:51] LABS: Band Neutrophils % 12 %; Lymphocytes # (M) 1.55 k/uL (1.0-4.8); Monocytes # (M) 1.94 k/uL (0-1.0); Myelocytes # (M) 0.19 k/uL (0); Myelocytes % 1 %; Neutrophils % (M) 69 %; Nucleated Red Blood Cells 0 /100 WBC (0-0); Poikilocytosis (M) Present; Total Cells Counted 200
[2019-11-22] MEDS: MAGNESIUM SULFATE-D5W PMX 1 GM in DEXTROSE/WATER 1 100ML.BAG IVPB SCH ×2 (06:57→08:40)
--- NOTE | 2019-11-22 07:42 | P.PN ---
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 Denies any episodes of vomiting. Denies any severe abdominal discomfort. Patient does have metastatic lesions in the colon. Patient is currently receiving chemotherapy last time about 1 week ago with a Mediport. Initially denied any complaints of fever or chills. No complaints of chest pain. No cough or sputum production. No leg swelling. Denied any dysuria or hematuria. Patient was found to be neutropenic and hyponatremia with sodium level 126. CT of the abdomen pelvis showed colonic wall thickening felt to be related to her metastasis. There was a small amount of ascites noted with a question of peritoneal implants, there was small urothelial thickening and questionable for possible urinary tract infection. And small bilateral pleural effusions were noted. Patient became febrile this afternoon with T-max of 101.3 Laboratory data showed WBC of 0.9, hemoglobin 10.6 and platelets 255 Sodium level is 126 Chloride 97, bicarb is 21 BUN 12 and creatinine 0.43 Calcium 8.0 Albumin 3.0 Coronavirus not detected. Urinalysis showed cloudy, nitrite positive and large leukocyte esterase with WBC 7 11/19/2019 Patient is currently lying in the bed, feeling very weak. Patient was febrile yesterday and septic work-up was done. Patient was found to have urinary tract infection and also due to neutropenia patient was started broad-spectrum antibiotics and ID was consulted. Currently patient is on vancomycin and cefepime. Afebrile now. Potassium is 2.9 which is being replaced and magnesium as well. CT of the abdomen pelvis was ordered due to complaints of abdominal pain mainly in the lower region. No complaints of diarrhea now. No headache or dizziness. No chest pain or shortness of breath. 11/20/2019 Patient is currently lying in the bed comfortably. Afebrile overnight. Currently being continued on broad-spectrum antibiotics in the form of vancomycin and cefepime. ID is following. Urine culture is pending. Otherwise patient denied any chest pain or shortness breath. Patient still having abdominal discomfort and CT of the abdomen pelvis was ordered yesterday which showed small bowel dilatation up to 3 cm with air-fluid levels. Small bowel obstruction suggested. Patient was placed on NG tube and diet change to nothing by mouth. General surgery was consulted. Patient will be continued on IV hydration. Subjective, this is the first day I take care of the patient 11/21/2019 This is a pleasant lady who was admitted on 11/16 for diarrhea, she came from [facility]. She found to have febrile neutropenia, bowel obstruction and UTI. Patient is been evaluated by several consults INCLUDING infectious disease, surgery and oncology. She has history of metastatic left breast cancer to bone on possible to: On peritoneal she got chemotherapy about one week earlier. She's been treated currently on cefepime and IV Flagyl, also she is on normal saline at 90 mL/h. She has increased tumor markers of CAD 15-30 into [place] and CA 27-29, CT of the abdomen showing bowel obstruction. And urine culture came back positive for staph aureus, patient received therapy before with IV vancomycin, we'll going to check with ID team if she is going to need more therapy. She feels generally weak, she still nothing by mouth, with no vomiting, NG tube is in place with little or no secretions. She has. Umbilical abdominal pain and tenderness, she was passing gases and have bowel movement the night before yesterday as per patient Blood pressure on the low-normal signed 94/69 and reversal vitals are stable. WBC went up to 19.4 K, sodium 1:30, creatinine 0.3. Magnesium 1.5 11/22/2019 Patient is alert and awake. She still complaining from abdominal pain and tenderness, she is tolerating only a little of her liquid diet although there is no vomiting and she has normal bowel movement and passing only gases. Her abdomen looks distended and she has tenderness in the upper part of the abdomen Patient feels weak has had difficulty getting up and moving around Blood pressure low-normal 99/67, still have leukocytosis of 19.4 K, hemoglobin 9.4. Sodium 129, creatinine normal, potassium of 3.3 Surgery team on the case and the recommended colonoscopy at certain point., Patient informed and she agrees with this recommendation.. Selective for and is negative. Low TIBC suggestive of anemia of chronic disease. Patient is already on 3 antibiotics with cefepime, Flagyl and IV vancomycin for her intra-abdominal infection and UTI.. She still in normal saline at 90 mL/h Last for physical therapy evaluation Objective - Vital Signs Vital signs: Vital Signs Temp 98.4 F 11/22/19 00:14 Pulse 79 11/22/19 00:14 Resp 15 11/22/19 00:14 BP 99/67 11/22/19 00:14 Pulse Ox 96 11/22/19 00:14 Intake & Output 11/21/19 11/22/19 11/22/19 18:59 06:59 18:59 Output Total 700 900 Balance -700 -900 Weight 40.9 kg Output: Urine 700 900 Other: Voiding Method Bedside Commode Bedside Commode Incontinent Incontinent # Voids 2 1 # Bowel Movements 2 - Exam GENERAL: The patient is alert and oriented x3, not in any acute distress. Well developed, well nourished. HEENT: Pupils are round and equally reacting to light. EOMI. No scleral icterus. No conjunctival pallor. Normocephalic, atraumatic. No pharyngeal erythema. No thyromegaly. CARDIOVASCULAR: S1 and S2 present. No murmurs, rubs, or gallops. PULMONARY: Chest is clear to auscultation, no wheezing or crackles. -ABDOMEN: Soft, periumbilical tenderness, slightly distended, normoactive bowel sounds. No palpable organomegaly. NG tube is in a Place MUSCULOSKELETAL: No joint swelling or deformity. EXTREMITIES: No cyanosis, clubbing, or pedal edema. NEUROLOGICAL: Gross neurological examination did not reveal any focal deficits. SKIN: No rashes. no petechiae. - Labs CBC & Chem 7: 11/22/19 05:00 11/22/19 05:00 Labs: Abnormal Lab Results - Last 24 Hours (Table) 11/21/19 11/21/19 11/21/19 Range/Units 07:36 07:36 07:36 WBC 19.4 H (3.8-10.6) k/uL RBC 3.56 L (3.80-5.40) m/uL Hgb 10.2 L (11.4-16.0) gm/dL Hct 32.7 L (34.0-46.0) % RDW 15.7 H (11.5-15.5) % Neutrophils # (Manual) 15.50 H (1.3-7.7) k/uL Monocytes # (Manual) 2.33 H (0-1.0) k/uL Myelocytes # (Manual) (0) k/uL Retic Count 2.8 H (0.5-2.0) % Sodium 130 L (137-145) mmol/L Potassium (3.5-5.1) mmol/L Carbon Dioxide 20 L (22-30) mmol/L BUN 3 L (7-17) mg/dL Creatinine 0.38 L (0.52-1.04) mg/dL Calcium 7.9 L (8.4-10.2) mg/dL Magnesium 1.5 L (1.6-2.3) mg/dL Iron (50-170) ug/dL TIBC (228-460) ug/dL Ferritin (10.0-291.0) ng/mL Total Protein (6.3-8.2) g/dL Albumin (3.5-5.0) g/dL Urine Ketones (Negative) 11/21/19 11/21/19 11/22/19 Range/Units 12:46 13:00 05:00 WBC (3.8-10.6) k/uL RBC (3.80-5.40) m/uL Hgb (11.4-16.0) gm/dL Hct (34.0-46.0) % RDW (11.5-15.5) % Neutrophils # (Manual) (1.3-7.7) k/uL Monocytes # (Manual) (0-1.0) k/uL Myelocytes # (Manual) (0) k/uL Retic Count (0.5-2.0) % Sodium 129 L (137-145) mmol/L Potassium 3.3 L (3.5-5.1) mmol/L Carbon Dioxide 20 L (22-30) mmol/L BUN 3 L (7-17) mg/dL Creatinine 0.33 L (0.52-1.04) mg/dL Calcium 6.9 L (8.4-10.2) mg/dL Magnesium (1.6-2.3) mg/dL Iron 23 L (50-170) ug/dL TIBC 163 L (228-460) ug/dL Ferritin 758.3 H (10.0-291.0) ng/mL Total Protein 4.5 L (6.3-8.2) g/dL Albumin 2.2 L (3.5-5.0) g/dL Urine Ketones 1+ H (Negative) 11/22/19 Range/Units 05:00 WBC 19.4 H (3.8-10.6) k/uL RBC 3.23 L (3.80-5.40) m/uL Hgb 9.4 L (11.4-16.0) gm/dL Hct 29.3 L (34.0-46.0) % RDW (11.5-15.5) % Neutrophils # (Manual) 15.70 H (1.3-7.7) k/uL Monocytes # (Manual) 1.94 H (0-1.0) k/uL Myelocytes # (Manual) 0.19 H (0) k/uL Retic Count (0.5-2.0) % Sodium (137-145) mmol/L Potassium (3.5-5.1) mmol/L Carbon Dioxide (22-30) mmol/L BUN (7-17) mg/dL Creatinine (0.52-1.04) mg/dL Calcium (8.4-10.2) mg/dL Magnesium (1.6-2.3) mg/dL Iron (50-170) ug/dL TIBC (228-460) ug/dL Ferritin (10.0-291.0) ng/mL Total Protein (6.3-8.2) g/dL Albumin (3.5-5.0) g/dL Urine Ketones (Negative) Microbiology - Last 24 Hours (Table) 11/17/19 22:44 Blood Culture - Preliminary Blood No Growth after 96 hours 11/18/19 17:45 Urine Culture - Final Urine,Clean Catch Methicillin resist S. aureus 11/18/19 17:45 Blood Culture - Preliminary Blood No Growth after 72 hours Assessment and Plan Assessment: Acute small bowel obstruction Acute diarrhea along with nausea due to chemotheraphy. Febrile neutropenia Bicytopenia due to chemotherapy. Sepsis secondary to urinary tract infection Hyponatremia likely hypoosmolar. Metastatic breast cancer with mets to colon and peritoneum. Currently on chemotherapy 1 week prior to admission Chronic back pain with compression fracture at T7 History of SIADH Hydronephrosis Subclinical hypothyroidism Right carpal tunnel syndrome History of bowel obstruction Anxiety Moderate protein calorie malnutrition Plan: This is a pleasant 69 years old female who presents with small bowel obst ruction, febrile neutropenia related to her chemotherapy for breast cancer and UTI. Patient's vitals closely by infectious disease, surgery and oncology service. Continue with antibiotics as per ID team recommendation. Continue with IV fluids. Labs and medication were reviewed.. Continue same treatment. Continue with symptomatic treatment. Resume home medication. Monitor lytes and vitals. DVT and GI prophylaxis. Further recommendations of the clinical course of the patient DVT prophylaxis: Subcutaneous heparin GI Prophylaxis: Ppi Prognosis is guarded
[2019-11-22] MEDS: PANTOPRAZOLE 40 MG/10 ML VIAL IVP SCH (09:55)
[2019-11-22] MEDS: HEPARIN SODIUM,PORCINE 5,000 UNIT/ML 1 ML VIAL SQ SCH ×2 (09:57→22:00)
--- NOTE | 2019-11-22 11:11 | P.PN ---
Subjective Progress Note Date: 11/22/19 CHIEF COMPLAINT: bowel obstruction HISTORY OF PRESENT ILLNESS: Patient examined this morning with Dr. Downey. NG has been discontinued. Patient reports increased pain with full liquid diet such as the oatmeal and pudding she ate this morning. She reports tolerating water and other clear liquids without increased pain. She is passing flatus. Vital signs stable. Blood pressure slightly on the lower side. Afebrile. WBC 19.4. Hemoglobin 9.4. PHYSICAL EXAM: VITAL SIGNS: Reviewed GENERAL: Well-developed in no acute distress. HEENT: No sclera icterus. Extraocular movements grossly intact. Moist buccal mucosa. Head is atraumatic, normocephalic. Hears conversational speech. No nasal drainage. NECK: Supple without lymphadenopathy. CHEST: Non-labored respirations and equal bilateral excursions. CARDIOVASCULAR: Regular rate with regular rhythm. Palpable 2+ radial pulses. ABDOMEN: Soft. Nondistended. Incisional hernia noted above umbilicus. Tenderness with palpation. MUSCULOSKELETAL: No clubbing or cyanosis. NEUROLOGIC: No focal or lateralizing signs. Cranial nerves II through XII grossly intact. PSYCH: Appropriate affect. Alert and oriented to person, place and time. SKIN: Well perfused. Good skin turgor. ASSESSMENT: 1. Abdominal pain, CT reveals focal thickening along splenic flexure and descending colon 2. Metastatic breast cancer PLAN: -Downgrade diet to clear liquids -Case discussed with Holly Kaye, oncology D[facility] TECHNICIAN, regarding possibility of performing colonoscopy if oncology team deemed it would be useless in their plan of care. Holly will speak with Dr. Reeves and get back to surgical team Nurse practitioner note has been reviewed by physician. Signing provider agrees with the documented findings, assessment, and plan of care. Objective - Vital Signs Vital signs: Vital Signs Temp 98.3 F 11/22/19 08:28 Pulse 77 11/22/19 08:28 Resp 16 11/22/19 08:28 BP 98/63 11/22/19 08:28 Pulse Ox 95 11/22/19 08:28 Intake & Output 11/21/19 11/22/19 11/22/19 18:59 06:59 18:59 Output Total 700 900 480 Balance -700 -900 -480 Weight 40.9 kg Output: Urine 700 900 480 Other: Voiding Method Bedside Commode Bedside Commode Incontinent Incontinent # Voids 2 1 1 # Bowel Movements 2 - Labs CBC & Chem 7: 11/22/19 05:00 11/22/19 05:00 Labs: Abnormal Lab Results - Last 24 Hours (Table) 11/21/19 11/21/19 11/21/19 Range/Units 07:36 12:46 13:00 WBC (3.8-10.6) k/uL RBC (3.80-5.40) m/uL Hgb (11.4-16.0) gm/dL Hct (34.0-46.0) % Neutrophils # (Manual) (1.3-7.7) k/uL Monocytes # (Manual) (0-1.0) k/uL Myelocytes # (Manual) (0) k/uL Retic Count 2.8 H (0.5-2.0) % Sodium (137-145) mmol/L Potassium (3.5-5.1) mmol/L Carbon Dioxide (22-30) mmol/L BUN (7-17) mg/dL Creatinine (0.52-1.04) mg/dL Calcium (8.4-10.2) mg/dL Iron 23 L (50-170) ug/dL TIBC 163 L (228-460) ug/dL Ferritin 758.3 H (10.0-291.0) ng/mL Total Protein 4.5 L (6.3-8.2) g/dL Albumin 2.2 L (3.5-5.0) g/dL Urine Ketones 1+ H (Negative) 11/22/19 11/22/19 Range/Units 05:00 05:00 WBC 19.4 H (3.8-10.6) k/uL RBC 3.23 L (3.80-5.40) m/uL Hgb 9.4 L (11.4-16.0) gm/dL Hct 29.3 L (34.0-46.0) % Neutrophils # (Manual) 15.70 H (1.3-7.7) k/uL Monocytes # (Manual) 1.94 H (0-1.0) k/uL Myelocytes # (Manual) 0.19 H (0) k/uL Retic Count (0.5-2.0) % Sodium 129 L (137-145) mmol/L Potassium 3.3 L (3.5-5.1) mmol/L Carbon Dioxide 20 L (22-30) mmol/L BUN 3 L (7-17) mg/dL Creatinine 0.33 L (0.52-1.04) mg/dL Calcium 6.9 L (8.4-10.2) mg/dL Iron (50-170) ug/dL TIBC (228-460) ug/dL Ferritin (10.0-291.0) ng/mL Total Protein (6.3-8.2) g/dL Albumin (3.5-5.0) g/dL Urine Ketones (Negative) Microbiology - Last 24 Hours (Table) 11/17/19 22:44 Blood Culture - Preliminary Blood No Growth after 96 hours 11/18/19 17:45 Urine Culture - Final Urine,Clean Catch Methicillin resist S. aureus 11/18/19 17:45 Blood Culture - Preliminary Blood No Growth after 72 hours
[2019-11-22] MEDS: POTASSIUM CHLORIDE 20 MEQ in WATER FOR INJECTION 1 100ML.BAG IVPB SCH ×2 (11:52→14:41)
[2019-11-22] MEDS: ONDANSETRON 4 MG/2 ML VIAL IVP PRN (11:57)
--- NOTE | 2019-11-22 14:29 | PN ---
PROGRESS NOTE DATE OF SERVICE: 11/22/2019 REASON FOR FOLLOWUP: 1. Febrile neutropenia. 2. Positive urine culture. INTERVAL HISTORY: Patient is currently afebrile. Patient is breathing comfortably. Patient denies having any chest pain. No shortness of breath or cough. Abdominal pain is currently controlled. No nausea, no vomiting or diarrhea. Denies any urinary symptoms. PHYSICAL EXAMINATION: Blood pressure is 98/63 with a pulse of 77. Temperature 98.3. She is 95% on room air. General description: The patient is an elderly female lying in bed in no distress. Respiratory system: Unlabored breathing. Clear to auscultation anteriorly. Heart S1, S2. Regular rate and rhythm. Abdomen soft, no guarding. No rigidity. LABS: Hemoglobin 9.4, white count 8.4, BUN of 3, creatinine 0.33. Repeat urine is negative. Urine with MRSA. DIAGNOSTIC IMPRESSION AND PLAN: 1. Patient with febrile neutropenia, source abdominal small bowel obstruction with significant induration at the cecum. The patient is covered with cefepime and Flagyl to continue. 2. Positive culture with MRSA, possible contamination colonization. The patient has no urinary symptoms and repeat urine is negative. No need for vancomycin. MMODL / IJN: [id number] /
--- NOTE | 2019-11-22 15:25 | XR ---
EXAMINATION TYPE: XR abdomen acute w cxr DATE OF EXAM: 11/22/2019 COMPARISON: 11/21/2019 HISTORY: Abdominal pain and distention TECHNIQUE: Supine, upright, and left side down lateral decubitus views of the abdomen are obtained. FINDINGS: Mediport catheter seen and there is evidence of previous vertebroplasty with diffuse osteop enia and multilevel degenerative change. Elevated left hemidiaphragm with by basilar consolidation sm all effusion. Persistent dilated air-filled loops of small and large bowel. A suggestion of previous surgery. Contr ast within the bowel is seen to the left colon. IMPRESSION: Nonspecific abdomen with contrast seen in the colon correlate for ileus. Partial obstruction not excl uded. Bibasilar infiltrate and small effusion.
--- NOTE | 2019-11-22 17:56 | P.PN ---
Subjective Progress Note Date: 11/22/19 Principal diagnosis: Neutropenic fever Still with abdominal pain. Discussed MRSA with , asymptomatic, GI removal of NG tube and no nausea but abdominal pain. No BM Positive flatus Objective - Vital Signs Vital signs: Vital Signs Temp 98.3 F 11/22/19 16:36 Pulse 83 11/22/19 16:36 Resp 20 11/22/19 16:36 BP 107/71 11/22/19 16:36 Pulse Ox 97 11/22/19 16:36 Intake & Output 11/21/19 11/22/19 11/22/19 18:59 06:59 18:59 Output Total 700 900 480 Balance -700 -900 -480 Weight 40.9 kg Output: Urine 700 900 480 Other: Voiding Method Bedside Commode Bedside Commode Incontinent Incontinent # Voids 2 1 1 # Bowel Movements 2 - Constitutional General appearance: Present: cooperative, no acute distress, thin - EENT Eyes: Present: EOMI, dentition normal ENT: Present: hard of hearing, other, thrush - Respiratory Respiratory: bilateral: CTA, diminished - Cardiovascular Rhythm: regular Heart sounds: normal: S1, S2 - Gastrointestinal General gastrointestinal: Present: distended, hyperactive bowel sounds, soft, tenderness - Integumentary Integumentary: Present: pale - Neurologic Neurologic: Present: CNII-XII intact - Musculoskeletal Musculoskeletal: Present: generalized weakness - Psychiatric Psychiatric: Present: A&O x's 3, appropriate affect, intact judgment & insight - Labs CBC & Chem 7: 11/22/19 05:00 11/22/19 05:00 Labs: Abnormal Lab Results - Last 24 Hours (Table) 11/21/19 11/22/19 11/22/19 Range/Units 13:00 05:00 05:00 WBC 19.4 H (3.8-10.6) k/uL RBC 3.23 L (3.80-5.40) m/uL Hgb 9.4 L (11.4-16.0) gm/dL Hct 29.3 L (34.0-46.0) % Neutrophils # (Manual) 15.70 H (1.3-7.7) k/uL Monocytes # (Manual) 1.94 H (0-1.0) k/uL Myelocytes # (Manual) 0.19 H (0) k/uL Sodium 129 L (137-145) mmol/L Potassium 3.3 L (3.5-5.1) mmol/L Carbon Dioxide 20 L (22-30) mmol/L BUN 3 L (7-17) mg/dL Creatinine 0.33 L (0.52-1.04) mg/dL Calcium 6.9 L (8.4-10.2) mg/dL Iron 23 L (50-170) ug/dL TIBC 163 L (228-460) ug/dL Ferritin 758.3 H (10.0-291.0) ng/mL Microbiology - Last 24 Hours (Table) 11/17/19 22:44 Blood Culture - Preliminary Blood No Growth after 96 hours 11/18/19 17:45 Urine Culture - Final Urine,Clean Catch Methicillin resist S. aureus 11/18/19 17:45 Blood Culture - Preliminary Blood No Growth after 72 hours Assessment and Plan Plan: Assessment and Recommendations: 1. Metastatic Breast Cancer: - Has been treated with many lines of therapy - Known Bone Mets - Transferred care to [facility] in July to reduce travel time - Per patient status post chemotherapy one week ago )?continued on gemsar weekly) 2. Febrile Neutropenia: resolved, afebrile - Zarxiodiscontinued, counts improved - Loving Cultures - BC neg - Urine MRSA - Aymptomatic - ID following 3. Normocytic anemia: - Secondary to malignancy and chemotherapy - Stable currently, no transfusion indicated. 4. Intractable abdominal pain: - Repeat flat plate - NPO/Clear
[2019-11-22 18:10] LABS: Appearance,Urine Clear (Clear); Bilirubin,Urine Negative (Negative); Blood,Urine Negative (Negative); Color,Urine Light Yellow; Glucose,Urine (UA) Negative (Negative); Ketones,Urine Negative (Negative); Leukocyte Esterase,Urine Negative (Negative); Nitrite,Urine Negative (Negative); PH, Urine 5.5 (5.0-8.0); Protein,Urine Negative (Negative); Specific Gravity,Urine 1.008 (1.001-1.035); Urobilinogen,Urine <2.0 mg/dL (<2.0)
[2019-11-22] MEDS: POTASSIUM CHLORIDE 10 MEQ in WATER FOR INJECTION 1 100ML.BAG IVPB SCH ×2 (19:45→20:59)
[2019-11-22] MEDS: ZOLPIDEM 5 MG TAB PO SCH (22:00)
[2019-11-22] MEDS: ALPRAZolam 0.5 MG TAB PO PRN (22:00)
[2019-11-23] MEDS: CEFEPIME 2 GM in SODIUM CHLORIDE 0.9% 100 ML IVPB SCH ×3 (00:02→18:09)
[2019-11-23] MEDS: SODIUM CHLORIDE 0.9% 1,000 ML IV SCH ×3 (00:03→22:56)
[2019-11-23] MEDS: HYDROmorphone 1 MG/ML 1 ML SYRINGE IVP PRN ×8 (00:53→22:53)
[2019-11-23] MEDS: metroNIDAZOLE-NS PMX 500 MG in SALINE 1 100ML.BAG IVPB SCH ×3 (00:54→18:38)
[2019-11-23 06:29] LABS: Basophils # (A) 0.1 k/uL (0-0.2); Basophils % (A) 0 %; Eosinophils % (A) 0 %; HGB 9.5 gm/dL (11.4-16.0); Hypochromasia Slight; Lymphocytes # (A) 1.7 k/uL (1.0-4.8); Lymphocytes % (A) 11 %; MCH 28.8 pg (25.0-35.0); MCHC 31.6 g/dL (31.0-37.0); MCV 91.1 fL (80.0-100.0); Mean Platelet Volume 7.2; Monocytes # (A) 0.7 k/uL (0-1.0); Monocytes % (A) 5 %; Neutrophils # (A) 12.5 k/uL (1.3-7.7); Neutrophils % (A) 83 %; Platelet Count 288 k/uL (150-450); RBC 3.29 m/uL (3.80-5.40); WBC 15.1 k/uL (3.8-10.6)
[2019-11-23 06:30] LABS: Ionized Calcium 4.9 mg/dL (4.5-5.3)
[2019-11-23 06:43] LABS: African American GFR (CKD) >90 (>60 ml/min/1.73 sqM); Anion Gap 2 mmol/L; Blood Urea Nitrogen 2 mg/dL (7-17); Calcium 6.9 mg/dL (8.4-10.2); Carbon Dioxide 22 mmol/L (22-30); Chloride 107 mmol/L (98-107); Glucose 78 mg/dL (74-99); Magnesium 1.6 mg/dL (1.6-2.3); Non-African American GFR(CKD) >90 (>60 ml/min/1.73 sqM); Potassium 3.8 mmol/L (3.5-5.1); Sodium 131 mmol/L (137-145)
--- NOTE | 2019-11-23 07:59 | P.PN ---
Subjective From a course: Patient is 69-year-old female with a known history of metastatic left breast cancer with mets to colon, SIADH, subclinical hypothyroidism, moderate protein calorie moderation, anxiety initially presented to ER at [facility] with complaints of persistent diarrhea and nausea. Denies any episodes of vomiting. Denies any severe abdominal discomfort. Patient does have metastatic lesions in the colon. Patient is currently receiving chemotherapy last time about 1 week ago with a Mediport. Initially denied any complaints of fever or chills. No complaints of chest pain. No cough or sputum production. No leg swelling. Denied any dysuria or hematuria. Patient was found to be neutropenic and hyponatremia with sodium level 126. CT of the abdomen pelvis showed colonic wall thickening felt to be related to her metastasis. There was a small amount of ascites noted with a question of peritoneal implants, there was small urothelial thickening and questionable for possible urinary tract infection. And small bilateral pleural effusions were noted. Patient became febrile this afternoon with T-max of 101.3 Laboratory data showed WBC of 0.9, hemoglobin 10.6 and platelets 255 Sodium level is 126 Chloride 97, bicarb is 21 BUN 12 and creatinine 0.43 Calcium 8.0 Albumin 3.0 Coronavirus not detected. Urinalysis showed cloudy, nitrite positive and large leukocyte esterase with WBC 7 11/19/2019 Patient is currently lying in the bed, feeling very weak. Patient was febrile yesterday and septic work-up was done. Patient was found to have urinary tract infection and also due to neutropenia patient was started broad-spectrum antibiotics and ID was consulted. Currently patient is on vancomycin and cefepime. Afebrile now. Potassium is 2.9 which is being replaced and magnesium as well. CT of the abdomen pelvis was ordered due to complaints of abdominal pain mainly in the lower region. No complaints of diarrhea now. No headache or dizziness. No chest pain or shortness of breath. 11/20/2019 Patient is currently lying in the bed comfortably. Afebrile overnight. Currently being continued on broad-spectrum antibiotics in the form of vancomycin and cefepime. ID is following. Urine culture is pending. Otherwise patient denied any chest pain or shortness breath. Patient still having abdominal discomfort and CT of the abdomen pelvis was ordered yesterday which showed small bowel dilatation up to 3 cm with air-fluid levels. Small bowel obstruction suggested. Patient was placed on NG tube and diet change to nothing by mouth. General surgery was consulted. Patient will be continued on IV hydration. Subjective, this is the first day I take care of the patient 11/21/2019 This is a pleasant lady who was admitted on 11/16 for diarrhea, she came from [facility]. She found to have febrile neutropenia, bowel obstruction and UTI. Patient is been evaluated by several consults INCLUDING infectious disease, surgery and oncology. She has history of metastatic left breast cancer to bone on possible to: On peritoneal she got chemotherapy about one week earlier. She's been treated currently on cefepime and IV Flagyl, also she is on normal saline at 90 mL/h. She has increased tumor markers of CAD 15-30 into Efren and CA 27-29, CT of the abdomen showing bowel obstruction. And urine culture came back positive for staph aureus, patient received therapy before with IV vancomycin, we'll going to check with ID team if she is going to need more therapy. She feels generally weak, she still nothing by mouth, with no vomiting, NG tube is in place with little or no secretions. She has. Umbilical abdominal pain and tenderness, she was passing gases and have bowel movement the night before yesterday as per patient Blood pressure on the low-normal signed 94/69 and reversal vitals are stable. WBC went up to 19.4 K, sodium 1:30, creatinine 0.3. Magnesium 1.5 11/22/2019 Patient is alert and awake. She still complaining from abdominal pain and tenderness, she is tolerating only a little of her liquid diet although there is no vomiting and she has normal bowel movement and passing only gases. Her abdomen looks distended and she has tenderness in the upper part of the abdomen Patient feels weak has had difficulty getting up and moving around Blood pressure low-normal 99/67, still have leukocytosis of 19.4 K, hemoglobin 9.4. Sodium 129, creatinine normal, potassium of 3.3 Surgery team on the case and the recommended colonoscopy at certain point., Patient informed and she agrees with this recommendation.. Selective for and is negative. Low TIBC suggestive of anemia of chronic disease. Patient is already on 3 antibiotics with cefepime, Flagyl and IV vancomycin for her intra-abdominal infection and UTI.. She still in normal saline at 90 mL/h Last for physical therapy evaluation 11/23/2019 Patient management comfortable not in distress, she did not eat follow-up of diabetes and day, she is trying to eat more today, she still on liquid diet however her abdominal pain around the periumbilical since same with tenderness but no rebound tenderness. No nausea vomiting however last night she has loose bowel movement as well as she is passing gas. She stent in bed most of the time and physical therapy is consulted. No urinary symptoms like no dysuria or change in frequency, staff in the urine is colonization and no need for vancomycin which was stopped by ID team Blood pressure is stable at 105/72, fever subsided. The loose is coming down to 15.1 K, on sodium is up to 131. Objective - Vital Signs Vital signs: Vital Signs Temp 98.4 F 11/23/19 00:35 Pulse 89 11/23/19 00:35 Resp 16 11/23/19 00:35 BP 105/72 11/23/19 00:35 Pulse Ox 95 11/23/19 00:35 Intake & Output 11/22/19 11/23/19 11/23/19 18:59 06:59 18:59 Intake Total 1400 Output Total 780 1775 Balance -780 -375 Intake: Intake, IV Titration 1400 Amount Cefepime 2 gm In Sodium 100 Chloride 0.9% 100 ml @ 200 mls/hr IVPB Q8HR [facility] Rx#:[id number] Potassium Chloride 10 meq 200 In Water For Injection 1 100ml.bag @ 100 mls/hr IVPB Q1H [facility] Rx#: [id number] Sodium Chloride 0.9% 1, 1000 000 ml @ 90 mls/hr IV . Q11H7M [facility] Rx#:[id number] metroNIDAZOLE-NS PMX 500 100 mg In Saline 1 100ml.bag @ 100 mls/hr IVPB Q8HR [facility] Rx#:[id number] Output: Urine 780 1775 Other: Voiding Method Bedside Commode # Voids 1 1 - Exam GENERAL: The patient is alert and oriented x3, not in any acute distress. Well developed, well nourished. HEENT: Pupils are round and equally reacting to light. EOMI. No scleral icterus. No conjunctival pallor. Normocephalic, atraumatic. No pharyngeal erythema. No thyromegaly. CARDIOVASCULAR: S1 and S2 present. No murmurs, rubs, or gallops. PULMONARY: Chest is clear to auscultation, no wheezing or crackles. -ABDOMEN: Soft, periumbilical tenderness, slightly distended, normoactive bowel sounds. No palpable organomegaly. NG tube is in a Place MUSCULOSKELETAL: No joint swelling or deformity. EXTREMITIES: No cyanosis, clubbing, or pedal edema. NEUROLOGICAL: Gross neurological examination did not reveal any focal deficits. SKIN: No rashes. no petechiae. - Labs CBC & Chem 7: 11/23/19 06:05 11/23/19 06:05 Labs: Abnormal Lab Results - Last 24 Hours (Table) 11/23/19 11/23/19 Range/Units 06:05 06:05 WBC 15.1 H (3.8-10.6) k/uL RBC 3.29 L (3.80-5.40) m/uL Hgb 9.5 L (11.4-16.0) gm/dL Hct 30.0 L (34.0-46.0) % RDW 16.0 H (11.5-15.5) % Neutrophils # 12.5 H (1.3-7.7) k/uL Sodium 131 L (137-145) mmol/L BUN 2 L (7-17) mg/dL Creatinine 0.33 L (0.52-1.04) mg/dL Calcium 6.9 L (8.4-10.2) mg/dL Microbiology - Last 24 Hours (Table) 11/17/19 22:44 Blood Culture - Preliminary Blood No Growth after 120 hours 11/22/19 17:48 Urine Culture - Preliminary Urine,Clean Catch 11/18/19 17:45 Blood Culture - Preliminary Blood No Growth after 96 hours Assessment and Plan Assessment: Acute small bowel obstruction, versus ileus Febrile neutropenia, improved Acute diarrhea along with nausea due to chemotheraphy. Improved Bicytopenia due to chemotherapy. Improved and growth factors is stopped Sepsis secondary to urinary tract infection Hyponatremia likely hypoosmolar. Metastatic breast cancer with mets to colon and peritoneum. Currently on chemotherapy 1 week prior to admission Chronic back pain with compression fracture at T7 History of SIADH Hydronephrosis Subclinical hypothyroidism Right carpal tunnel syndrome History of bowel obstruction Anxiety Moderate protein calorie malnutrition Plan: This is a pleasant 69 years old female who presents with small bowel obstruct ion, febrile neutropenia related to her chemotherapy for breast cancer and UTI. Patient's vitals closely by infectious disease, surgery and oncology service. Continue with antibiotics as per ID team recommendation. Continue with IV fluids. Labs and medication were reviewed.. Continue same treatment. Continue with symptomatic treatment. Resume home medication. Monitor lytes and vitals. DVT and GI prophylaxis. Further recommendations of the clinical course of the patient DVT prophylaxis: Subcutaneous heparin GI Prophylaxis: Ppi Prognosis is guarded
[2019-11-23] MEDS: POTASSIUM CHLORIDE 10 MEQ in WATER FOR INJECTION 1 100ML.BAG IVPB SCH ×2 (08:50→09:51)
[2019-11-23] MEDS: MAGNESIUM SULFATE-D5W PMX 1 GM in DEXTROSE/WATER 1 100ML.BAG IVPB SCH ×2 (08:51→09:51)
[2019-11-23] MEDS: PANTOPRAZOLE 40 MG/10 ML VIAL IVP SCH (09:35)
[2019-11-23] MEDS: HEPARIN SODIUM,PORCINE 5,000 UNIT/ML 1 ML VIAL SQ SCH ×2 (09:36→22:49)
--- NOTE | 2019-11-23 13:34 | P.PN ---
Subjective Progress Note Date: 11/23/19 CHIEF COMPLAINT: bowel obstruction HISTORY OF PRESENT ILLNESS: Patient examined at the bedside with Dr. Downey. Patient tolerating clear liquid diet. No vomiting. She is passing flatus and had a liquid bowel movement today. Vital signs stable. Afebrile. WBC 15.1. Hemoglobin 9.5. PHYSICAL EXAM: VITAL SIGNS: Reviewed GENERAL: Well-developed in no acute distress. HEENT: No sclera icterus. Extraocular movements grossly intact. Moist buccal mucosa. Head is atraumatic, normocephalic. Hears conversational speech. No nasal drainage. NECK: Supple without lymphadenopathy. CHEST: Non-labored respirations and equal bilateral excursions. CARDIOVASCULAR: Regular rate with regular rhythm. Palpable 2+ radial pulses. ABDOMEN: Soft. Nondistended. Incisional hernia noted above umbilicus. Tenderness with palpation. MUSCULOSKELETAL: No clubbing or cyanosis. NEUROLOGIC: No focal or lateralizing signs. Cranial nerves II through XII grossly intact. PSYCH: Appropriate affect. Alert and oriented to person, place and time. SKIN: Well perfused. Good skin turgor. ASSESSMENT: 1. Abdominal pain, CT reveals focal thickening along splenic flexure and descending colon 2. Metastatic breast cancer PLAN: -Continue clear liquid diet -Patient will undergo 500cc daily bowel prep on Thursday, Thursday, and Thursday -She will be scheduled for a colonoscopy on Thursday November 28, [address] Mindi diaz Nurse practitioner note has been reviewed by physician. Signing provider agrees with the documented findings, assessment, and plan of care. Objective - Vital Signs Vital signs: Vital Signs Temp 99.0 F 11/23/19 08:38 Pulse 85 11/23/19 08:38 Resp 20 11/23/19 08:38 BP 90/64 11/23/19 08:38 Pulse Ox 95 11/23/19 08:38 Intake & Output 11/22/19 11/23/19 11/23/19 18:59 06:59 18:59 Intake Total 1400 Output Total 780 8045 300 Balance -396 -375 -300 Intake: Intake, IV Titration 1400 Amount Cefepime 2 gm In Sodium 100 Chloride 0.9% 100 ml @ 200 mls/hr IVPB Q8HR [facility] Rx#:[id number] Potassium Chloride 10 meq 200 In Water For Injection 1 100ml.bag @ 100 mls/hr IVPB Q1H [facility] Rx#: [id number] Sodium Chloride 0.9% 1, 1000 000 ml @ 90 mls/hr IV . Q11H7M [facility] Rx#:[id number] metroNIDAZOLE-NS PMX 500 100 mg In Saline 1 100ml.bag @ 100 mls/hr IVPB Q8HR [facility] Rx#:[id number] Output: Urine 780 1775 300 Other: Voiding Method Bedside Commode # Voids 1 1 - Labs CBC & Chem 7: 11/23/19 06:05 11/23/19 06:05 Labs: Abnormal Lab Results - Last 24 Hours (Table) 11/23/19 11/23/19 Range/Units 06:05 06:05 WBC 15.1 H (3.8-10.6) k/uL RBC 3.29 L (3.80-5.40) m/uL Hgb 9.5 L (11.4-16.0) gm/dL Hct 30.0 L (34.0-46.0) % RDW 16.0 H (11.5-15.5) % Neutrophils # 12.5 H (1.3-7.7) k/uL Sodium 131 L (137-145) mmol/L BUN 2 L (7-17) mg/dL Creatinine 0.33 L (0.52-1.04) mg/dL Calcium 6.9 L (8.4-10.2) mg/dL Microbiology - Last 24 Hours (Table) 11/20/19 08:00 Stool Culture - Final Stool 11/17/19 22:44 Blood Culture - Preliminary Blood No Growth after 120 hours 11/22/19 17:48 Urine Culture - Preliminary Urine,Clean Catch 11/18/19 17:45 Blood Culture - Preliminary Blood No Growth after 96 hours
[2019-11-23] MEDS: ZOLPIDEM 5 MG TAB PO SCH (22:50)
[2019-11-23] MEDS: ALPRAZolam 0.5 MG TAB PO PRN (22:50)
[2019-11-24] MEDS: CEFEPIME 2 GM in SODIUM CHLORIDE 0.9% 100 ML IVPB SCH ×4 (00:57→23:42)
[2019-11-24] MEDS: metroNIDAZOLE-NS PMX 500 MG in SALINE 1 100ML.BAG IVPB SCH ×4 (01:56→19:57)
[2019-11-24] MEDS: HYDROmorphone 1 MG/ML 1 ML SYRINGE IVP PRN ×7 (01:57→21:50)
[2019-11-24] MEDS ORDERED: LIDOCAINE-PRILOCAINE 2.5-2.5% CREAM 5 GM TUBE TOPICAL ONE (05:12)
--- NOTE | 2019-11-24 06:15 | PN ---
PROGRESS NOTE DATE OF SERVICE: 11/23/2019 REASON FOR FOLLOWUP: 1. Febrile neutropenia, possible abdominal source. 2. Positive urine culture, likely contaminate. INTERVAL HISTORY: The patient is currently afebrile. She is breathing comfortably. Still complaining of abdominal discomfort and nausea. No diarrhea. No chest pain, shortness of breath or cough and no urinary symptoms. PHYSICAL EXAMINATION: Blood pressure 111/76, pulse of 88, temperature 98.6. She is 94% on room air. General description is an elderly female lying in bed in no distress. RESPIRATORY SYSTEM: Unlabored breathing, clear to auscultation anteriorly. HEART: S1, S2. Regular rate and rhythm. ABDOMEN: Soft, but distended. LABS: Hemoglobin 9.5, white count 15.1 with a BUN of 2, creatinine 0.33. DIAGNOSTIC IMPRESSION AND PLAN: 1. Patient admitted to the hospital with febrile neutropenia abdominal symptoms with dilatation of the cecum and the small bowel ileus. Patient is currently covered with cefepime, Flagyl to continue. 2. Positive urine culture with MRSA likely contaminant as follow UA has been negative and repeat urine is negative as well. MMODL / IJN: [id number] /
--- NOTE | 2019-11-24 07:59 | P.PN ---
Subjective From a course: Patient is 69-year-old female with a known history of metastatic left breast cancer with mets to colon, SIADH, subclinical hypothyroidism, moderate protein calorie moderation, anxiety initially presented to ER at [facility] with complaints of persistent diarrhea and nausea. Denies any episodes of vomiting. Denies any severe abdominal discomfort. Patient does have metastatic lesions in the colon. Patient is currently receiving chemotherapy last time about 1 week ago with a Mediport. Initially denied any complaints of fever or chills. No complaints of chest pain. No cough or sputum production. No leg swelling. Denied any dysuria or hematuria. Patient was found to be neutropenic and hyponatremia with sodium level 126. CT of the abdomen pelvis showed colonic wall thickening felt to be related to her metastasis. There was a small amount of ascites noted with a question of peritoneal implants, there was small urothelial thickening and questionable for possible urinary tract infection. And small bilateral pleural effusions were noted. Patient became febrile this afternoon with T-max of 101.3 Laboratory data showed WBC of 0.9, hemoglobin 10.6 and platelets 255 Sodium level is 126 Chloride 97, bicarb is 21 BUN 12 and creatinine 0.43 Calcium 8.0 Albumin 3.0 Coronavirus not detected. Urinalysis showed cloudy, nitrite positive and large leukocyte esterase with WBC 7 11/19/2019 Patient is currently lying in the bed, feeling very weak. Patient was febrile yesterday and septic work-up was done. Patient was found to have urinary tract infection and also due to neutropenia patient was started broad-spectrum antibiotics and ID was consulted. Currently patient is on vancomycin and cefepime. Afebrile now. Potassium is 2.9 which is being replaced and magnesium as well. CT of the abdomen pelvis was ordered due to complaints of abdominal pain mainly in the lower region. No complaints of diarrhea now. No headache or dizziness. No chest pain or shortness of breath. 11/20/2019 Patient is currently lying in the bed comfortably. Afebrile overnight. Currently being continued on broad-spectrum antibiotics in the form of vancomycin and cefepime. ID is following. Urine culture is pending. Otherwise patient denied any chest pain or shortness breath. Patient still having abdominal discomfort and CT of the abdomen pelvis was ordered yesterday which showed small bowel dilatation up to 3 cm with air-fluid levels. Small bowel obstruction suggested. Patient was placed on NG tube and diet change to nothing by mouth. General surgery was consulted. Patient will be continued on IV hydration. Subjective, this is the first day I take care of the patient 11/21/2019 This is a pleasant lady who was admitted on 11/16 for diarrhea, she came from [facility]. She found to have febrile neutropenia, bowel obstruction and UTI. Patient is been evaluated by several consults INCLUDING infectious disease, surgery and oncology. She has history of metastatic left breast cancer to bone on possible to: On peritoneal she got chemotherapy about one week earlier. She's been treated currently on cefepime and IV Flagyl, also she is on normal saline at 90 mL/h. She has increased tumor markers of CAD 15-30 into Efren and CA 27-29, CT of the abdomen showing bowel obstruction. And urine culture came back positive for staph aureus, patient received therapy before with IV vancomycin, we'll going to check with ID team if she is going to need more therapy. She feels generally weak, she still nothing by mouth, with no vomiting, NG tube is in place with little or no secretions. She has. Umbilical abdominal pain and tenderness, she was passing gases and have bowel movement the night before yesterday as per patient Blood pressure on the low-normal signed 94/69 and reversal vitals are stable. WBC went up to 19.4 K, sodium 1:30, creatinine 0.3. Magnesium 1.5 11/22/2019 Patient is alert and awake. She still complaining from abdominal pain and tenderness, she is tolerating only a little of her liquid diet although there is no vomiting and she has normal bowel movement and passing only gases. Her abdomen looks distended and she has tenderness in the upper part of the abdomen Patient feels weak has had difficulty getting up and moving around Blood pressure low-normal 99/67, still have leukocytosis of 19.4 K, hemoglobin 9.4. Sodium 129, creatinine normal, potassium of 3.3 Surgery team on the case and the recommended colonoscopy at certain point., Patient informed and she agrees with this recommendation.. Selective for and is negative. Low TIBC suggestive of anemia of chronic disease. Patient is already on 3 antibiotics with cefepime, Flagyl and IV vancomycin for her intra-abdominal infection and UTI.. She still in normal saline at 90 mL/h Last for physical therapy evaluation 11/23/2019 Patient management comfortable not in distress, she did not eat follow-up of diabetes and day, she is trying to eat more today, she still on liquid diet however her abdominal pain around the periumbilical since same with tenderness but no rebound tenderness. No nausea vomiting however last night she has loose bowel movement as well as she is passing gas. She stent in bed most of the time and physical therapy is consulted. No urinary symptoms like no dysuria or change in frequency, staff in the urine is colonization and no need for vancomycin which was stopped by ID team Blood pressure is stable at 105/72, fever subsided. The loose is coming down to 15.1 K, on sodium is up to 131. 11/24/2019 The patient sitting in chair, not in distress. Patient denies chest pain or dyspnea. However she is not eating well while she is on liquid diet, she still have some abdominal pain, no bowel movement or passing gases yesterday. Patient was started on bowel regiment by surgery team Surgical team are planning for patient to go for colonoscopy on Thursday Objective - Vital Signs Vital signs: Vital Signs Temp 97.9 F 11/24/19 01:30 Pulse 83 11/24/19 01:30 Resp 16 11/24/19 01:30 BP 99/65 11/24/19 01:30 Pulse Ox 95 11/24/19 01:30 Intake & Output 11/23/19 11/24/19 11/24/19 18:59 06:59 18:59 Intake Total 1340 1750 Output Total 800 1875 Balance 540 -125 Intake: Intake, IV Titration 1100 1700 Amount Cefepime 2 gm In Sodium 100 100 Chloride 0.9% 100 ml @ 200 mls/hr IVPB Q8HR [facility] Rx#:[id number] Magnesium Sulfate-D5w Pmx 200 1 gm In Dextrose/Water 1 100ml.bag @ 100 mls/hr IVPB Q1H [facility] Rx#: [id number] Potassium Chloride 10 meq 100 In Water For Injection 1 100ml.bag @ 100 mls/hr IVPB Q1H [facility] Rx#: [id number] Potassium Chloride 10 meq 100 In Water For Injection 1 100ml.bag @ 100 mls/hr IVPB Q1H [facility] Rx#: [id number] Sodium Chloride 0.9% 1, 500 1500 000 ml @ 90 mls/hr IV . Q11H7M [facility] Rx#:[id number] metroNIDAZOLE-NS PMX 500 100 100 mg In Saline 1 100ml.bag @ 100 mls/hr IVPB Q8H [facility] Rx#:[id number] Oral 240 50 Output: Urine 800 1875 Other: Voiding Method Bedside Commode # Voids 1 - Exam GENERAL: The patient is alert and oriented x3, not in any acute distress. Well developed, well nourished. HEENT: Pupils are round and equally reacting to light. EOMI. No scleral icterus. No conjunctival pallor. Normocephalic, atraumatic. No pharyngeal erythema. No thyromegaly. CARDIOVASCULAR: S1 and S2 present. No murmurs, rubs, or gallops. PULMONARY: Chest is clear to auscultation, no wheezing or crackles. -ABDOMEN: Soft, periumbilical tenderness, slightly distended, normoactive bowel sounds. No palpable organomegaly. NG tube is in a Place MUSCULOSKELETAL: No joint swelling or deformity. EXTREMITIES: No cyanosis, clubbing, or pedal edema. NEUROLOGICAL: Gross neurological examination did not reveal any focal deficits. SKIN: No rashes. no petechiae. - Labs CBC & Chem 7: 11/23/19 06:05 11/23/19 06:05 Labs: Abnormal Lab Results - Last 24 Hours (Table) 11/24/19 Range/Units 05:30 Magnesium 1.4 L (1.6-2.3) mg/dL Microbiology - Last 24 Hours (Table) 11/17/19 22:44 Blood Culture - Final Blood No Growth after 144 hours 11/22/19 17:48 Urine Culture - Final Urine,Clean Catch 11/18/19 17:45 Blood Culture - Preliminary Blood No Growth after 120 hours 11/20/19 08:00 Stool Culture - Final Stool Assessment and Plan Assessment: Acute small bowel obstruction, versus ileus Febrile neutropenia, improved Acute diarrhea along with nausea due to chemotheraphy. Improved Bicytopenia due to chemotherapy. Improved and growth factors is stopped Sepsis secondary to urinary tract infection Hyponatremia likely hypoosmolar. Metastatic breast cancer with mets to colon and peritoneum. Currently on chemotherapy 1 week prior to admission Chronic back pain with compression fracture at T7 History of SIADH Hydronephrosis Subclinical hypothyroidism Right carpal tunnel syndrome History of bowel obstruction Anxiety Moderate protein calorie malnutrition Plan: This is a pleasant 69 years old female who presents with small bowel obstru ction, febrile neutropenia related to her chemotherapy for breast cancer and UTI. Patient's vitals closely by infectious disease, surgery and oncology service. Continue with antibiotics as per ID team recommendation. Continue with IV fluids. Labs and medication were reviewed.. Continue same treatment. Continue with symptomatic treatment. Resume home medication. Monitor lytes and vitals. DVT and GI prophylaxis. Further recommendations of the clinical course of the patient DVT prophylaxis: Subcutaneous heparin GI Prophylaxis: Ppi Prognosis is guarded
[2019-11-24] MEDS ORDERED: POLYETHYLENE GLYCOL LYTES SOLN 4,000 ML SOLN.RECON PO SCH (09:00)
[2019-11-24] MEDS: HEPARIN SODIUM,PORCINE 5,000 UNIT/ML 1 ML VIAL SQ SCH ×2 (09:16→21:50)
[2019-11-24] MEDS: PANTOPRAZOLE 40 MG/10 ML VIAL IVP SCH (09:17)
[2019-11-24] MEDS: MAGNESIUM SULFATE-D5W PMX 1 GM in DEXTROSE/WATER 1 100ML.BAG IVPB SCH ×3 (09:38→14:32)
--- NOTE | 2019-11-24 12:15 | P.PN ---
Subjective Progress Note Date: 11/24/19 CHIEF COMPLAINT: bowel obstruction HISTORY OF PRESENT ILLNESS: Patient examined at the bedside with Dr. Downey. Patient tolerating clear liquid diet. No vomiting. She is passing flatus. Vital signs stable. Afebrile. PHYSICAL EXAM: VITAL SIGNS: Reviewed GENERAL: Well-developed in no acute distress. HEENT: No sclera icterus. Extraocular movements grossly intact. Moist buccal mucosa. Head is atraumatic, normocephalic. Hears conversational speech. No nasal drainage. NECK: Supple without lymphadenopathy. CHEST: Non-labored respirations and equal bilateral excursions. CARDIOVASCULAR: Regular rate with regular rhythm. Palpable 2+ radial pulses. ABDOMEN: Soft. Nondistended. Incisional hernia noted above umbilicus. Mild tenderness with palpation. MUSCULOSKELETAL: No clubbing or cyanosis. NEUROLOGIC: No focal or lateralizing signs. Cranial nerves II through XII grossly intact. PSYCH: Appropriate affect. Alert and oriented to person, place and time. SKIN: Well perfused. Good skin turgor. ASSESSMENT: 1. Abdominal pain, CT reveals focal thickening along splenic flexure and descending colon 2. Metastatic breast cancer PLAN: -Continue clear liquid diet. Begin PPN. -Patient will undergo 500cc daily bowel prep on Thursday, Thursday, and Thursday -She will be scheduled for a colonoscopy on Thursday November 28, [address] Downey Nurse practitioner note has been reviewed by physician. Signing provider agrees with the documented findings, assessment, and plan of care. Objective - Vital Signs Vital signs: Vital Signs Temp 97.4 F L 11/24/19 09:19 Pulse 76 11/24/19 09:19 Resp 16 11/24/19 09:19 BP 103/68 11/24/19 09:19 Pulse Ox 98 11/24/19 09:19 Intake & Output 11/23/19 11/24/19 11/24/19 18:59 06:59 18:59 Intake Total 1340 1750 Output Total 800 1875 450 Balance 540 -125 -450 Weight 40.9 kg Intake: Intake, IV Titration 1100 1700 Amount Cefepime 2 gm In Sodium 100 100 Chloride 0.9% 100 ml @ 200 mls/hr IVPB Q8HR [facility] Rx#:[id number] Magnesium Sulfate-D5w Pmx 200 1 gm In Dextrose/Water 1 100ml.bag @ 100 mls/hr IVPB Q1H [facility] Rx#: [id number] Potassium Chloride 10 meq 100 In Water For Injection 1 100ml.bag @ 100 mls/hr IVPB Q1H [facility] Rx#: [id number] Potassium Chloride 10 meq 100 In Water For Injection 1 100ml.bag @ 100 mls/hr IVPB Q1H [facility] Rx#: [id number] Sodium Chloride 0.9% 1, 500 1500 000 ml @ 90 mls/hr IV . Q11H7M [facility] Rx#:[id number] metroNIDAZOLE-NS PMX 500 100 100 mg In Saline 1 100ml.bag @ 100 mls/hr IVPB Q8H [facility] Rx#:[id number] Oral 240 50 Output: Urine 800 1875 450 Other: Voiding Method Bedside Commode # Voids 1 2 - Labs CBC & Chem 7: 11/23/19 06:05 11/23/19 06:05 Labs: Abnormal Lab Results - Last 24 Hours (Table) 11/24/19 Range/Units 05:30 Magnesium 1.4 L (1.6-2.3) mg/dL Microbiology - Last 24 Hours (Table) 11/20/19 08:00 Stool Culture - Final Stool 11/17/19 22:44 Blood Culture - Final Blood No Growth after 144 hours 11/22/19 17:48 Urine Culture - Final Urine,Clean Catch 11/18/19 17:45 Blood Culture - Preliminary Blood No Growth after 120 hours
[2019-11-24 13:53] LABS: ALT 8 U/L (4-34); AST 27 U/L (14-36); African American GFR (CKD) >90 (>60 ml/min/1.73 sqM); Albumin 2.2 g/dL (3.5-5.0); Alkaline Phosphatase 101 U/L (38-126); Anion Gap 5 mmol/L; Blood Urea Nitrogen 3 mg/dL (7-17); Calcium 7.4 mg/dL (8.4-10.2); Carbon Dioxide 22 mmol/L (22-30); Chloride 102 mmol/L (98-107); Glucose 126 mg/dL (74-99); Non-African American GFR(CKD) >90 (>60 ml/min/1.73 sqM); Phosphorus 2.7 mg/dL (2.5-4.5); Potassium 3.6 mmol/L (3.5-5.1); Sodium 129 mmol/L (137-145); Total Bilirubin 0.5 mg/dL (0.2-1.3); Total Protein 4.6 g/dL (6.3-8.2); Triglycerides 51 mg/dL (<150)
[2019-11-24] MEDS ORDERED: MVI, ADULT NO.4 WITH VIT K 10 ML, TRACE (CONC-1ML/DOSE) 1 ML in AMINO ACID 4.25%-D10W+L... IV SCH ×3 (14:30)
--- NOTE | 2019-11-24 15:46 | US ---
EXAMINATION TYPE: US venous doppler duplex UE LT DATE OF EXAM: 11/24/2019 COMPARISON: NONE CLINICAL HISTORY: Assess for DVT. Left arm swelling, pt has history of breast CA with axillary lymph node removal SIDE PERFORMED: Left Left Arm: Negative for DVT, pt states left subclavian stent placed approx 3 years ago due to h/o DVT IMPRESSION: 1. Left upper extremity ultrasound negative for deep venous thrombosis.
[2019-11-24] MEDS: BISACODYL 10 MG SUPP RECTAL SCH ×2 (16:07→21:27)
[2019-11-24 16:10] LABS: Basophils % (A) 0 %; Eosinophils % (A) 0 %; HCT 31.5 % (34.0-46.0); HGB 10.1 gm/dL (11.4-16.0); Hypochromasia Moderate; Lymphocytes # (A) 1.5 k/uL (1.0-4.8); Lymphocytes % (A) 12 %; MCH 29.3 pg (25.0-35.0); MCHC 31.9 g/dL (31.0-37.0); MCV 91.9 fL (80.0-100.0); Mean Platelet Volume 7.4; Monocytes # (A) 0.6 k/uL (0-1.0); Monocytes % (A) 5 %; Neutrophils # (A) 10.1 k/uL (1.3-7.7); Neutrophils % (A) 81 %; Platelet Count 296 k/uL (150-450); RBC 3.43 m/uL (3.80-5.40); RDW 15.8 % (11.5-15.5); WBC 12.5 k/uL (3.8-10.6)
--- NOTE | 2019-11-24 16:35 | P.PN ---
Subjective Progress Note Date: 11/23/19 Principal diagnosis: Neutropenic fever feeling ok today, planning very slow bowel prep. Objective - Vital Signs Vital signs: Vital Signs Temp 98.0 F 11/23/19 12:28 Pulse 84 11/23/19 12:28 Resp 20 11/23/19 12:28 BP 100/65 11/23/19 12:28 Pulse Ox 94 L 11/23/19 12:28 Intake & Output 11/22/19 11/23/19 11/23/19 18:59 06:59 18:59 Intake Total 1400 1340 Output Total 780 1775 800 Balance -780 -375 540 Intake: Intake, IV Titration 1400 1100 Amount Cefepime 2 gm In Sodium 100 100 Chloride 0.9% 100 ml @ 200 mls/hr IVPB Q8HR [facility] Rx#:[id number] Magnesium Sulfate-D5w Pmx 200 1 gm In Dextrose/Water 1 100ml.bag @ 100 mls/hr IVPB Q1H [facility] Rx#: [id number] Potassium Chloride 10 meq 200 100 In Water For Injection 1 100ml.bag @ 100 mls/hr IVPB Q1H [facility] Rx#: [id number] Potassium Chloride 10 meq 100 In Water For Injection 1 100ml.bag @ 100 mls/hr IVPB Q1H [facility] Rx#: [id number] Sodium Chloride 0.9% 1, 1000 500 000 ml @ 90 mls/hr IV . Q11H7M [facility] Rx#:[id number] metroNIDAZOLE-NS PMX 500 100 mg In Saline 1 100ml.bag @ 100 mls/hr IVPB Q8H [facility] Rx#:[id number] metroNIDAZOLE-NS PMX 500 100 mg In Saline 1 100ml.bag @ 100 mls/hr IVPB Q8HR [facility] Rx#:[id number] Oral 240 Output: Urine 780 1775 800 Other: Voiding Method Bedside Commode # Voids 1 1 - Exam - Constitutional General appearance: Present: cooperative, no acute distress, thin chronic ill - EENT Eyes: Present: EOMI, dentition normal ENT: Present: hard of hearing, other, thrush - Respiratory Respiratory: bilateral: CTA, diminished - Cardiovascular Rhythm: regular Heart sounds: normal: S1, S2 - Gastrointestinal General gastrointestinal: Present: distended, hyperactive bowel sounds, soft, tenderness - Integumentary Integumentary: Present: pale - Neurologic Neurologic: Present: CNII-XII intact - Musculoskeletal Musculoskeletal: Present: generalized weakness - Psychiatric Psychiatric: Present: A&O x's 3, appropriate affect, intact judgment & insight - Labs CBC & Chem 7: 11/24/19 15:47 11/24/19 12:45 Labs: Abnormal Lab Results - Last 24 Hours (Table) 11/23/19 11/23/19 Range/Units 06:05 06:05 WBC 15.1 H (3.8-10.6) k/uL RBC 3.29 L (3.80-5.40) m/uL Hgb 9.5 L (11.4-16.0) gm/dL Hct 30.0 L (34.0-46.0) % RDW 16.0 H (11.5-15.5) % Neutrophils # 12.5 H (1.3-7.7) k/uL Sodium 131 L (137-145) mmol/L BUN 2 L (7-17) mg/dL Creatinine 0.33 L (0.52-1.04) mg/dL Calcium 6.9 L (8.4-10.2) mg/dL Microbiology - Last 24 Hours (Table) 11/20/19 08:00 Stool Culture - Final Stool 11/17/19 22:44 Blood Culture - Preliminary Blood No Growth after 120 hours 11/22/19 17:48 Urine Culture - Preliminary Urine,Clean Catch 11/18/19 17:45 Blood Culture - Preliminary Blood No Growth after 96 hours Assessment and Plan Plan: Assessment and Recommendations: 1. Metastatic Breast Cancer: - Has been treated with many lines of therapy - Most recently on Taxotere weekly - Known Bone Mets - Transferred care to [facility] in July to reduce travel time - Per patient status post chemotherapy one week ago 2. Febrile Neutropenia: resolved, afebrile - Zarxio discontinued, counts improved - Loving Cultures - BC neg - Urine MRSA - Aymptomatic - ID following 3. Normocytic anemia: - Secondary to malignancy and chemotherapy - Stable currently, no transfusion indicated. 4. Intractable abdominal pain: - NPO/Clear PLan: Concern for progressive GI disease, Discussed with surgical team who are planning slow bowel prep and potential scope in 48 hours Physician Attest: I have completed the full history and physical and agree with above dictation, dictated as a scribe.
--- NOTE | 2019-11-24 16:37 | P.PN ---
Subjective Progress Note Date: 11/24/19 Principal diagnosis: Neutropenic fever Pain is controlled. LUE increased swelling Objective - Vital Signs Vital signs: Vital Signs Temp 98.0 F 11/24/19 13:27 Pulse 79 11/24/19 13:27 Resp 16 11/24/19 13:27 BP 103/64 11/24/19 13:27 Pulse Ox 99 11/24/19 13:27 Intake & Output 11/23/19 11/24/19 11/24/19 18:59 06:59 18:59 Intake Total 1340 1750 Output Total 800 1875 450 Balance 540 -125 -450 Weight 40.9 kg Intake: Intake, IV Titration 1100 1700 Amount Cefepime 2 gm In Sodium 100 100 Chloride 0.9% 100 ml @ 200 mls/hr IVPB Q8HR [facility] Rx#:[id number] Magnesium Sulfate-D5w Pmx 200 1 gm In Dextrose/Water 1 100ml.bag @ 100 mls/hr IVPB Q1H [facility] Rx#: [id number] Potassium Chloride 10 meq 100 In Water For Injection 1 100ml.bag @ 100 mls/hr IVPB Q1H [facility] Rx#: [id number] Potassium Chloride 10 meq 100 In Water For Injection 1 100ml.bag @ 100 mls/hr IVPB Q1H [facility] Rx#: [id number] Sodium Chloride 0.9% 1, 500 1500 000 ml @ 90 mls/hr IV . Q11H7M [facility] Rx#:[id number] metroNIDAZOLE-NS PMX 500 100 100 mg In Saline 1 100ml.bag @ 100 mls/hr IVPB Q8H [facility] Rx#:[id number] Oral 240 50 Output: Urine 800 1875 450 Other: Voiding Method Bedside Commode # Voids 1 2 - Exam - Constitutional General appearance: Present: cooperative, no acute distress, thin chronic ill - EENT Eyes: Present: EOMI, dentition normal ENT: Present: hard of hearing, other, thrush - Respiratory Respiratory: bilateral: CTA, diminished - Cardiovascular Rhythm: regular Heart sounds: normal: S1, S2 - Gastrointestinal General gastrointestinal: Present: distended, hyperactive bowel sounds, soft, tenderness - Integumentary Integumentary: Present: pale - Neurologic Neurologic: Present: CNII-XII intact - Musculoskeletal Musculoskeletal: Present: generalized weakness - Psychiatric Psychiatric: Present: A&O x's 3, appropriate affect, intact judgment & insight - Labs CBC & Chem 7: 11/24/19 15:47 11/24/19 12:45 Labs: Abnormal Lab Results - Last 24 Hours (Table) 11/24/19 11/24/19 11/24/19 Range/Units 05:30 12:45 15:47 WBC 12.5 H (3.8-10.6) k/uL RBC 3.43 L (3.80-5.40) m/uL Hgb 10.1 L (11.4-16.0) gm/dL Hct 31.5 L (34.0-46.0) % RDW 15.8 H (11.5-15.5) % Neutrophils # 10.1 H (1.3-7.7) k/uL Sodium 129 L (137-145) mmol/L BUN 3 L (7-17) mg/dL Creatinine 0.27 L (0.52-1.04) mg/dL Glucose 126 H (74-99) mg/dL Calcium 7.4 L (8.4-10.2) mg/dL Magnesium 1.4 L (1.6-2.3) mg/dL Total Protein 4.6 L (6.3-8.2) g/dL Albumin 2.2 L (3.5-5.0) g/dL Microbiology - Last 24 Hours (Table) 11/20/19 08:00 Stool Culture - Final Stool 11/17/19 22:44 Blood Culture - Final Blood No Growth after 144 hours 11/22/19 17:48 Urine Culture - Final Urine,Clean Catch 11/18/19 17:45 Blood Culture - Preliminary Blood No Growth after 120 hours Assessment and Plan Plan: Assessment and Recommendations: 1. Metastatic Breast Cancer: - Has been treated with many lines of therapy - Most recently on Taxotere weekly - Known Bone Mets - Transferred care to [facility] in July to reduce travel time 2. Febrile Neutropenia: resolved, afebrile - Zarxio discontinued, counts improved - Loving Cultures - BC neg - repeat urine neg 3. Normocytic anemia: - Secondary to malignancy and chemotherapy - Stable currently, no transfusion indicated. 4. Intractable abdominal pain: - NPO/Clear PLan: - Concern for progressive GI disease, planning slow bowel prep and potential scope in 48 hours - Will send path for molecular testing, probable second primary colon versus metastatic breast to colon. - Doppler LUE
[2019-11-24] MEDS: FAT EMULSION 20% 250 ML IV SCH (17:45)
[2019-11-24] MEDS: SODIUM CHLORIDE 0.9% 1,000 ML IV SCH ×2 (17:55→22:51)
[2019-11-24 18:16] LABS: Glucose,Whole Blood 124 mg/dL (75-99)
[2019-11-24] MEDS: INSULIN ASPART (NovoLOG) 100 UNIT/ML VIAL SQ SCH (18:42)
[2019-11-24] MEDS: DOCUSATE 100 MG CAP PO SCH (21:50)
[2019-11-24] MEDS: ZOLPIDEM 5 MG TAB PO SCH (21:50)
[2019-11-24] MEDS: ALPRAZolam 0.5 MG TAB PO PRN (21:50)
[2019-11-25 00:17] LABS: Glucose,Whole Blood 125 mg/dL (75-99)
[2019-11-25] MEDS: INSULIN ASPART (NovoLOG) 100 UNIT/ML VIAL SQ SCH ×5 (00:56→23:53)
[2019-11-25] MEDS: metroNIDAZOLE-NS PMX 500 MG in SALINE 1 100ML.BAG IVPB SCH ×3 (02:10→17:49)
[2019-11-25] MEDS: HYDROmorphone 1 MG/ML 1 ML SYRINGE IVP PRN ×7 (02:10→22:34)
[2019-11-25 06:18] LABS: Glucose,Whole Blood 103 mg/dL (75-99)
--- NOTE | 2019-11-25 07:19 | P.PN ---
Subjective From a course: Patient is 69-year-old female with a known history of metastatic left breast cancer with mets to colon, SIADH, subclinical hypothyroidism, moderate protein calorie moderation, anxiety initially presented to ER at [facility] with complaints of persistent diarrhea and nausea. Denies any episodes of vomiting. Denies any severe abdominal discomfort. Patient does have metastatic lesions in the colon. Patient is currently receiving chemotherapy last time about 1 week ago with a Mediport. Initially denied any complaints of fever or chills. No complaints of chest pain. No cough or sputum production. No leg swelling. Denied any dysuria or hematuria. Patient was found to be neutropenic and hyponatremia with sodium level 126. CT of the abdomen pelvis showed colonic wall thickening felt to be related to her metastasis. There was a small amount of ascites noted with a question of peritoneal implants, there was small urothelial thickening and questionable for possible urinary tract infection. And small bilateral pleural effusions were noted. Patient became febrile this afternoon with T-max of 101.3 Laboratory data showed WBC of 0.9, hemoglobin 10.6 and platelets 255 Sodium level is 126 Chloride 97, bicarb is 21 BUN 12 and creatinine 0.43 Calcium 8.0 Albumin 3.0 Coronavirus not detected. Urinalysis showed cloudy, nitrite positive and large leukocyte esterase with WBC 7 11/19/2019 Patient is currently lying in the bed, feeling very weak. Patient was febrile yesterday and septic work-up was done. Patient was found to have urinary tract infection and also due to neutropenia patient was started broad-spectrum antibiotics and ID was consulted. Currently patient is on vancomycin and cefepime. Afebrile now. Potassium is 2.9 which is being replaced and magnesium as well. CT of the abdomen pelvis was ordered due to complaints of abdominal pain mainly in the lower region. No complaints of diarrhea now. No headache or dizziness. No chest pain or shortness of breath. 11/20/2019 Patient is currently lying in the bed comfortably. Afebrile overnight. Currently being continued on broad-spectrum antibiotics in the form of vancomycin and cefepime. ID is following. Urine culture is pending. Otherwise patient denied any chest pain or shortness breath. Patient still having abdominal discomfort and CT of the abdomen pelvis was ordered yesterday which showed small bowel dilatation up to 3 cm with air-fluid levels. Small bowel obstruction suggested. Patient was placed on NG tube and diet change to nothing by mouth. General surgery was consulted. Patient will be continued on IV hydration. Subjective, this is the first day I take care of the patient 11/21/2019 This is a pleasant lady who was admitted on 11/16 for diarrhea, she came from [facility]. She found to have febrile neutropenia, bowel obstruction and UTI. Patient is been evaluated by several consults INCLUDING infectious disease, surgery and oncology. She has history of metastatic left breast cancer to bone on possible to: On peritoneal she got chemotherapy about one week earlier. She's been treated currently on cefepime and IV Flagyl, also she is on normal saline at 90 mL/h. She has increased tumor markers of CAD 15-30 into Efren and CA 27-29, CT of the abdomen showing bowel obstruction. And urine culture came back positive for staph aureus, patient received therapy before with IV vancomycin, we'll going to check with ID team if she is going to need more therapy. She feels generally weak, she still nothing by mouth, with no vomiting, NG tube is in place with little or no secretions. She has. Umbilical abdominal pain and tenderness, she was passing gases and have bowel movement the night before yesterday as per patient Blood pressure on the low-normal signed 94/69 and reversal vitals are stable. WBC went up to 19.4 K, sodium 1:30, creatinine 0.3. Magnesium 1.5 11/22/2019 Patient is alert and awake. She still complaining from abdominal pain and tenderness, she is tolerating only a little of her liquid diet although there is no vomiting and she has normal bowel movement and passing only gases. Her abdomen looks distended and she has tenderness in the upper part of the abdomen Patient feels weak has had difficulty getting up and moving around Blood pressure low-normal 99/67, still have leukocytosis of 19.4 K, hemoglobin 9.4. Sodium 129, creatinine normal, potassium of 3.3 Surgery team on the case and the recommended colonoscopy at certain point., Patient informed and she agrees with this recommendation.. Selective for and is negative. Low TIBC suggestive of anemia of chronic disease. Patient is already on 3 antibiotics with cefepime, Flagyl and IV vancomycin for her intra-abdominal infection and UTI.. She still in normal saline at 90 mL/h Last for physical therapy evaluation 11/23/2019 Patient management comfortable not in distress, she did not eat follow-up of diabetes and day, she is trying to eat more today, she still on liquid diet however her abdominal pain around the periumbilical since same with tenderness but no rebound tenderness. No nausea vomiting however last night she has loose bowel movement as well as she is passing gas. She stent in bed most of the time and physical therapy is consulted. No urinary symptoms like no dysuria or change in frequency, staff in the urine is colonization and no need for vancomycin which was stopped by ID team Blood pressure is stable at 105/72, fever subsided. The loose is coming down to 15.1 K, on sodium is up to 131. 11/24/2019 The patient sitting in chair, not in distress. Patient denies chest pain or dyspnea. However she is not eating well while she is on liquid diet, she still have some abdominal pain, no bowel movement or passing gases yesterday. Patient was started on bowel regiment by surgery team Surgical team are planning for patient to go for colonoscopy on Thursday11/24/2019 Patient is lying in bed comfortable not in distress. She is not eating, she got suppository followed by loose bowel movement, no vomiting abdominal pain is controlled. She is started on TPN and she is tolerating that well Left upper extremity ultrasound is negative for DVT Planned for coloscopy on Thursday Objective - Vital Signs Vital signs: Vital Signs Temp 97.7 F 11/25/19 05:15 Pulse 84 11/25/19 05:15 Resp 12 11/25/19 05:15 BP 96/60 11/25/19 05:15 Pulse Ox 93 L 11/25/19 05:15 Intake & Output 11/24/19 11/25/19 11/25/19 18:59 06:59 18:59 Output Total 1040 300 Balance -1040 -300 Weight 40.9 kg Output: Urine 800 300 Urine/Stool Mix 240 Other: Voiding Method Bedside Commode # Voids 1 1 # Bowel Movements 1 - Exam GENERAL: The patient is alert and oriented x3, not in any acute distress. Well developed, well nourished. HEENT: Pupils are round and equally reacting to light. EOMI. No scleral icterus. No conjunctival pallor. Normocephalic, atraumatic. No pharyngeal erythema. No thyromegaly. CARDIOVASCULAR: S1 and S2 present. No murmurs, rubs, or gallops. PULMONARY: Chest is clear to auscultation, no wheezing or crackles. -ABDOMEN: Soft, periumbilical tenderness, slightly distended, normoactive bowel sounds. No palpable organomegaly. NG tube is in a Place MUSCULOSKELETAL: No joint swelling or deformity. EXTREMITIES: No cyanosis, clubbing, or pedal edema. NEUROLOGICAL: Gross neurological examination did not reveal any focal deficits. SKIN: No rashes. no petechiae. - Labs CBC & Chem 7: 11/24/19 15:47 11/24/19 12:45 Labs: Abnormal Lab Results - Last 24 Hours (Table) 11/24/19 11/24/19 11/24/19 Range/Units 12:45 15:47 18:15 WBC 12.5 H (3.8-10.6) k/uL RBC 3.43 L (3.80-5.40) m/uL Hgb 10.1 L (11.4-16.0) gm/dL Hct 31.5 L (34.0-46.0) % RDW 15.8 H (11.5-15.5) % Neutrophils # 10.1 H (1.3-7.7) k/uL Sodium 129 L (137-145) mmol/L BUN 3 L (7-17) mg/dL Creatinine 0.27 L (0.52-1.04) mg/dL Glucose 126 H (74-99) mg/dL POC Glucose (mg/dL) 124 H (75-99) mg/dL Calcium 7.4 L (8.4-10.2) mg/dL Total Protein 4.6 L (6.3-8.2) g/dL Albumin 2.2 L (3.5-5.0) g/dL 11/25/19 11/25/19 Range/Units 00:16 06:09 WBC (3.8-10.6) k/uL RBC (3.80-5.40) m/uL Hgb (11.4-16.0) gm/dL Hct (34.0-46.0) % RDW (11.5-15.5) % Neutrophils # (1.3-7.7) k/uL Sodium (137-145) mmol/L BUN (7-17) mg/dL Creatinine (0.52-1.04) mg/dL Glucose (74-99) mg/dL POC Glucose (mg/dL) 125 H 103 H (75-99) mg/dL Calcium (8.4-10.2) mg/dL Total Protein (6.3-8.2) g/dL Albumin (3.5-5.0) g/dL Microbiology - Last 24 Hours (Table) 11/18/19 17:45 Blood Culture - Final Blood No Growth after 144 hours 11/20/19 08:00 Stool Culture - Final Stool Assessment and Plan Assessment: Acute small bowel obstruction, versus ileus Febrile neutropenia, improved Acute diarrhea along with nausea due to chemotheraphy. Improved Bicytopenia due to chemotherapy. Improved and growth factors is stopped Sepsis secondary to urinary tract infection Hyponatremia likely hypoosmolar. Metastatic breast cancer with mets to colon and peritoneum. Currently on chemotherapy 1 week prior to admission Chronic back pain with compression fracture at T7 History of SIADH Hydronephrosis Subclinical hypothyroidism Right carpal tunnel syndrome History of bowel obstruction Anxiety Moderate protein calorie malnutrition Plan: This is a pleasant 69 years old female who presents with small bowel obstruction, febrile neutropenia related to her chemotherapy for breast cancer , resolved and UTI. Patient's vitals closely by infectious disease, surgery and oncology service. Continue with antibiotics as per ID team recommendation. Continue with IV fluids. Continue with TPN. Plan for colonoscopy on 11/27 Labs and medication were reviewed.. Continue same treatment. Continue with symptomatic treatment. Resume home medication. Monitor lytes and vitals. DVT and GI prophylaxis. Further recommendations of the clinical course of the patient DVT prophylaxis: Subcutaneous heparin GI Prophylaxis: Ppi Prognosis is guarded
[2019-11-25] MEDS: CEFEPIME 2 GM in SODIUM CHLORIDE 0.9% 100 ML IVPB SCH ×2 (07:37→17:07)
[2019-11-25 08:11] LABS: African American GFR (CKD) >90 (>60 ml/min/1.73 sqM); Anion Gap 3 mmol/L; Blood Urea Nitrogen 3 mg/dL (7-17); Calcium 7.2 mg/dL (8.4-10.2); Carbon Dioxide 26 mmol/L (22-30); Chloride 103 mmol/L (98-107); Glucose 104 mg/dL (74-99); Non-African American GFR(CKD) >90 (>60 ml/min/1.73 sqM); Phosphorus 2.9 mg/dL (2.5-4.5); Potassium 3.3 mmol/L (3.5-5.1); Sodium 132 mmol/L (137-145)
[2019-11-25] MEDS: PANTOPRAZOLE 40 MG/10 ML VIAL IVP SCH (08:43)
[2019-11-25] MEDS: DOCUSATE 100 MG CAP PO SCH ×2 (08:44→21:07)
[2019-11-25] MEDS: FAT EMULSION 20% 250 ML IV SCH (09:13)
[2019-11-25] MEDS: SODIUM CHLORIDE 0.9% 1,000 ML IV SCH (09:21)
[2019-11-25] MEDS: HEPARIN SODIUM,PORCINE 5,000 UNIT/ML 1 ML VIAL SQ SCH ×2 (09:22→21:07)
--- NOTE | 2019-11-25 10:17 | P.PN ---
Subjective Progress Note Date: 11/25/19 CHIEF COMPLAINT: bowel obstruction HISTORY OF PRESENT ILLNESS: Patient examined at the bedside with Dr. Downey. Patient tolerating clear liquid diet. No vomiting. She is passing flatus. Vital signs stable. Afebrile. PHYSICAL EXAM: VITAL SIGNS: Reviewed GENERAL: Well-developed in no acute distress. HEENT: No sclera icterus. Extraocular movements grossly intact. Moist buccal mucosa. Head is atraumatic, normocephalic. Hears conversational speech. No nasal drainage. NECK: Supple without lymphadenopathy. CHEST: Non-labored respirations and equal bilateral excursions. CARDIOVASCULAR: Regular rate with regular rhythm. Palpable 2+ radial pulses. ABDOMEN: Soft. Nondistended. Incisional hernia noted above umbilicus. Mild tenderness with palpation. MUSCULOSKELETAL: No clubbing or cyanosis. NEUROLOGIC: No focal or lateralizing signs. Cranial nerves II through XII grossly intact. PSYCH: Appropriate affect. Alert and oriented to person, place and time. SKIN: Well perfused. Good skin turgor. ASSESSMENT: 1. Abdominal pain, CT reveals focal thickening along splenic flexure and descending colon 2. Metastatic breast cancer PLAN: -Continue clear liquid diet. Continue PPN. -Patient will undergo 500cc daily bowel prep x 3 days (today, tomorrow, and Thursday) -She will be scheduled for a colonoscopy on Thursday November 28, [address] Downey Nurse practitioner note has been reviewed by physician. Signing provider agrees with the documented findings, assessment, and plan of care. Objective - Vital Signs Vital signs: Vital Signs Temp 97.7 F 11/25/19 05:15 Pulse 84 11/25/19 08:00 Resp 12 11/25/19 08:00 BP 96/60 11/25/19 05:15 Pulse Ox 93 L 11/25/19 05:15 Intake & Output 11/24/19 11/25/19 11/25/19 18:59 06:59 18:59 Output Total 1040 300 Balance -1040 -300 Weight 40.9 kg Output: Urine 800 300 Urine/Stool Mix 240 Other: Voiding Method Bedside Commode Bedside Commode # Voids 1 1 # Bowel Movements 1 - Labs CBC & Chem 7: 11/24/19 15:47 11/25/19 07:30 Labs: Abnormal Lab Results - Last 24 Hours (Table) 11/24/19 11/24/19 11/24/19 Range/Units 12:45 15:47 18:15 WBC 12.5 H (3.8-10.6) k/uL RBC 3.43 L (3.80-5.40) m/uL Hgb 10.1 L (11.4-16.0) gm/dL Hct 31.5 L (34.0-46.0) % RDW 15.8 H (11.5-15.5) % Neutrophils # 10.1 H (1.3-7.7) k/uL Sodium 129 L (137-145) mmol/L Potassium (3.5-5.1) mmol/L BUN 3 L (7-17) mg/dL Creatinine 0.27 L (0.52-1.04) mg/dL Glucose 126 H (74-99) mg/dL POC Glucose (mg/dL) 124 H (75-99) mg/dL Calcium 7.4 L (8.4-10.2) mg/dL Total Protein 4.6 L (6.3-8.2) g/dL Albumin 2.2 L (3.5-5.0) g/dL 11/25/19 11/25/19 11/25/19 Range/Units 00:16 06:09 07:30 WBC (3.8-10.6) k/uL RBC (3.80-5.40) m/uL Hgb (11.4-16.0) gm/dL Hct (34.0-46.0) % RDW (11.5-15.5) % Neutrophils # (1.3-7.7) k/uL Sodium 132 L (137-145) mmol/L Potassium 3.3 L (3.5-5.1) mmol/L BUN 3 L (7-17) mg/dL Creatinine 0.28 L (0.52-1.04) mg/dL Glucose 104 H (74-99) mg/dL POC Glucose (mg/dL) 125 H 103 H (75-99) mg/dL Calcium 7.2 L (8.4-10.2) mg/dL Total Protein (6.3-8.2) g/dL Albumin (3.5-5.0) g/dL Microbiology - Last 24 Hours (Table) 11/18/19 17:45 Blood Culture - Final Blood No Growth after 144 hours 11/20/19 08:00 Stool Culture - Final Stool
[2019-11-25 11:13] LABS: Glucose,Whole Blood 124 mg/dL (75-99)
[2019-11-25] MEDS: POLYETHYLENE GLYCOL LYTES SOLN 4,000 ML SOLN.RECON PO SCH (15:48)
[2019-11-25] MEDS: 1: MVI, ADULT NO.4 WITH VIT K 10 ML, TRACE (CONC-1ML/DOSE) 1 ML in AMINO ACID 4.25%-D10W IV SCH ×3 (15:50)
[2019-11-25] MEDS: POTASSIUM CHLORIDE 10 MEQ in WATER FOR INJECTION 1 100ML.BAG IVPB SCH ×4 (15:56→23:50)
--- NOTE | 2019-11-25 16:44 | P.PN ---
Subjective Progress Note Date: 11/25/19 Principal diagnosis: Neutropenic fever TPN started yesterday, patient pain is controlled, afebrile, no vomiting. She did move bowels last evening Objective - Vital Signs Vital signs: Vital Signs Temp 98.3 F 11/25/19 11:45 Pulse 89 11/25/19 15:19 Resp 17 11/25/19 15:19 BP 109/71 11/25/19 11:45 Pulse Ox 95 11/25/19 11:45 Intake & Output 11/24/19 11/25/19 11/25/19 18:59 06:59 18:59 Output Total 1040 300 Balance -1040 -300 Weight 40.9 kg 40.9 kg Output: Urine 800 300 Urine/Stool Mix 240 Other: Voiding Method Bedside Commode Bedside Commode # Voids 1 1 # Bowel Movements 1 - Exam - Constitutional General appearance: Present: cooperative, no acute distress, thin chronic ill - EENT Eyes: Present: EOMI, dentition normal ENT: Present: hard of hearing, other, thrush - Respiratory Respiratory: bilateral: CTA, diminished - Cardiovascular Rhythm: regular Heart sounds: normal: S1, S2 - Gastrointestinal General gastrointestinal: Present: distended, hyperactive bowel sounds, soft, tenderness - Integumentary Integumentary: Present: pale - Neurologic Neurologic: Present: CNII-XII intact - Musculoskeletal Musculoskeletal: Present: generalized weakness - Psychiatric Psychiatric: Present: A&O x's 3, appropriate affect, intact judgment & insight - Labs CBC & Chem 7: 11/24/19 15:47 11/25/19 07:30 Labs: Abnormal Lab Results - Last 24 Hours (Table) 11/24/19 11/25/19 11/25/19 Range/Units 18:15 00:16 06:09 Sodium (137-145) mmol/L Potassium (3.5-5.1) mmol/L BUN (7-17) mg/dL Creatinine (0.52-1.04) mg/dL Glucose (74-99) mg/dL POC Glucose (mg/dL) 124 H 125 H 103 H (75-99) mg/dL Calcium (8.4-10.2) mg/dL 11/25/19 11/25/19 Range/Units 07:30 11:11 Sodium 132 L (137-145) mmol/L Potassium 3.3 L (3.5-5.1) mmol/L BUN 3 L (7-17) mg/dL Creatinine 0.28 L (0.52-1.04) mg/dL Glucose 104 H (74-99) mg/dL POC Glucose (mg/dL) 124 H (75-99) mg/dL Calcium 7.2 L (8.4-10.2) mg/dL Microbiology - Last 24 Hours (Table) 11/18/19 17:45 Blood Culture - Final Blood No Growth after 144 hours Assessment and Plan Plan: Assessment and Recommendations: 1. Metastatic Breast Cancer: - Has been treated with many lines of therapy - Most recently on Taxotere weekly - Known Bone Mets - Transferred care to [facility] in July to reduce travel time 2. Febrile Neutropenia: resolved, afebrile - Zarxio discontinued, counts improved - Loving Cultures - BC neg - repeat urine neg 3. Normocytic anemia: - Secondary to malignancy and chemotherapy - Stable currently, no transfusion indicated. 4. Intractable abdominal pain: - NPO/Clear 5. Protein calorie Malnutrition: - TPN infusing. PLan: - Concern for progressive GI disease, planning slow bowel prep and potential scope in 48 hours - Will send path for molecular testing, probable second prima ry colon versus metastatic breast to colon. - Doppler LUE Negativ - Continue TPN - Continue Pain medication and supportive care
[2019-11-25 16:48] LABS: Glucose,Whole Blood 122 mg/dL (75-99)
[2019-11-25] MEDS: ALPRAZolam 0.5 MG TAB PO PRN (22:33)
[2019-11-25] MEDS: ZOLPIDEM 5 MG TAB PO SCH (22:34)
--- NOTE | 2019-11-25 23:19 | PN ---
PROGRESS NOTE DATE OF SERVICE: 11/25/2019 REASON FOR FOLLOWUP: Fever, possible abdominal source. INTERVAL HISTORY: Patient is currently afebrile. She is breathing comfortably. She is complaining of abdominal discomfort but no vomiting. No chest pain, shortness of breath or cough. No diarrhea. PHYSICAL EXAMINATION: Blood pressure 109/61 with a pulse of 89, temperature 98.3, she is 95% on room air. General description is an elderly female up in the chair in no distress. Respiratory system: Unlabored breathing, clear to auscultation anteriorly. Heart S1, S2. Regular rate and rhythm. Abdomen soft, no tenderness. LABS: BUN of 3, creatinine 0.28. Blood culture has been negative. DIAGNOSTIC IMPRESSION AND PLAN: 1. Patient with fever on admission hospital with concern for possible abdominal source. The patient did have significant dilatation of the cecum and small bowel. Possible colonoscopy on Thursday. The patient is currently covered with cefepime and Flagyl. 2. Positive urine culture with MRSA, likely contaminant. Repeat UA and culture have been negative. No need for vancomycin. MMODL / IJN: [id number] /
[2019-11-25 23:57] LABS: Glucose,Whole Blood 116 mg/dL (75-99)
[2019-11-26] MEDS: CEFEPIME 2 GM in SODIUM CHLORIDE 0.9% 100 ML IVPB SCH ×4 (01:07→23:31)
[2019-11-26] MEDS: HYDROmorphone 1 MG/ML 1 ML SYRINGE IVP PRN ×7 (02:00→21:50)
[2019-11-26] MEDS: metroNIDAZOLE-NS PMX 500 MG in SALINE 1 100ML.BAG IVPB SCH ×3 (02:01→16:10)
[2019-11-26] MEDS: SODIUM CHLORIDE 0.9% 1,000 ML IV SCH ×2 (06:37→08:27)
[2019-11-26] MEDS: INSULIN ASPART (NovoLOG) 100 UNIT/ML VIAL SQ SCH ×3 (06:38→17:14)
[2019-11-26 06:40] LABS: Glucose,Whole Blood 99 mg/dL (75-99)
[2019-11-26 07:23] LABS: Anisocytosis Slight; Basophils % (A) 0 %; Eosinophils % (A) 0 %; HCT 28.9 % (34.0-46.0); HGB 8.8 gm/dL (11.4-16.0); Hypochromasia Slight; Lymphocytes % (A) 19 %; MCH 27.8 pg (25.0-35.0); MCHC 30.5 g/dL (31.0-37.0); Mean Platelet Volume 7.6; Monocytes # (A) 0.7 k/uL (0-1.0); Monocytes % (A) 7 %; Neutrophils # (A) 7.4 k/uL (1.3-7.7); Neutrophils % (A) 72 %; Platelet Count 296 k/uL (150-450); RBC 3.18 m/uL (3.80-5.40); RDW 16.7 % (11.5-15.5); WBC 10.2 k/uL (3.8-10.6)
[2019-11-26 07:23] LABS: ALT 7 U/L (4-34); AST 17 U/L (14-36); African American GFR (CKD) >90 (>60 ml/min/1.73 sqM); Alkaline Phosphatase 56 U/L (38-126); Anion Gap 3 mmol/L; Blood Urea Nitrogen 5 mg/dL (7-17); Calcium 7.5 mg/dL (8.4-10.2); Carbon Dioxide 25 mmol/L (22-30); Chloride 103 mmol/L (98-107); Glucose 99 mg/dL (74-99); Magnesium 1.7 mg/dL (1.6-2.3); Non-African American GFR(CKD) >90 (>60 ml/min/1.73 sqM); Phosphorus 3.1 mg/dL (2.5-4.5); Sodium 131 mmol/L (137-145); Total Bilirubin 0.4 mg/dL (0.2-1.3); Total Protein 4.2 g/dL (6.3-8.2)
[2019-11-26 07:25] LABS: Glucose,Whole Blood 95 mg/dL (75-99)
[2019-11-26] MEDS: HEPARIN SODIUM,PORCINE 5,000 UNIT/ML 1 ML VIAL SQ SCH ×2 (08:19→21:50)
[2019-11-26] MEDS: PANTOPRAZOLE 40 MG/10 ML VIAL IVP SCH (08:20)
[2019-11-26] MEDS: DOCUSATE 100 MG CAP PO SCH ×2 (08:20→21:50)
[2019-11-26] MEDS: POLYETHYLENE GLYCOL LYTES SOLN 4,000 ML SOLN.RECON PO SCH (08:21)
[2019-11-26] MEDS: ONDANSETRON 4 MG/2 ML VIAL IVP PRN ×2 (09:34→18:45)
--- NOTE | 2019-11-26 11:12 | P.PN ---
Subjective From a course: Patient is 69-year-old female with a known history of metastatic left breast cancer with mets to colon, SIADH, subclinical hypothyroidism, moderate protein calorie moderation, anxiety initially presented to ER at [facility] with complaints of persistent diarrhea and nausea. Denies any episodes of vomiting. Denies any severe abdominal discomfort. Patient does have metastatic lesions in the colon. Patient is currently receiving chemotherapy last time about 1 week ago with a Mediport. Initially denied any complaints of fever or chills. No complaints of chest pain. No cough or sputum production. No leg swelling. Denied any dysuria or hematuria. Patient was found to be neutropenic and hyponatremia with sodium level 126. CT of the abdomen pelvis showed colonic wall thickening felt to be related to her metastasis. There was a small amount of ascites noted with a question of peritoneal implants, there was small urothelial thickening and questionable for possible urinary tract infection. And small bilateral pleural effusions were noted. Patient became febrile this afternoon with T-max of 101.3 Laboratory data showed WBC of 0.9, hemoglobin 10.6 and platelets 255 Sodium level is 126 Chloride 97, bicarb is 21 BUN 12 and creatinine 0.43 Calcium 8.0 Albumin 3.0 Coronavirus not detected. Urinalysis showed cloudy, nitrite positive and large leukocyte esterase with WBC 7 11/19/2019 Patient is currently lying in the bed, feeling very weak. Patient was febrile yesterday and septic work-up was done. Patient was found to have urinary tract infection and also due to neutropenia patient was started broad-spectrum antibiotics and ID was consulted. Currently patient is on vancomycin and cefepime. Afebrile now. Potassium is 2.9 which is being replaced and magnesium as well. CT of the abdomen pelvis was ordered due to complaints of abdominal pain mainly in the lower region. No complaints of diarrhea now. No headache or dizziness. No chest pain or shortness of breath. 11/20/2019 Patient is currently lying in the bed comfortably. Afebrile overnight. Currently being continued on broad-spectrum antibiotics in the form of vancomycin and cefepime. ID is following. Urine culture is pending. Otherwise patient denied any chest pain or shortness breath. Patient still having abdominal discomfort and CT of the abdomen pelvis was ordered yesterday which showed small bowel dilatation up to 3 cm with air-fluid levels. Small bowel obstruction suggested. Patient was placed on NG tube and diet change to nothing by mouth. General surgery was consulted. Patient will be continued on IV hydration. Subjective, this is the first day I take care of the patient 11/21/2019 This is a pleasant lady who was admitted on 11/16 for diarrhea, she came from [facility]. She found to have febrile neutropenia, bowel obstruction and UTI. Patient is been evaluated by several consults INCLUDING infectious disease, surgery and oncology. She has history of metastatic left breast cancer to bone on possible to: On peritoneal she got chemotherapy about one week earlier. She's been treated currently on cefepime and IV Flagyl, also she is on normal saline at 90 mL/h. She has increased tumor markers of CAD 15-30 into Efren and CA 27-29, CT of the abdomen showing bowel obstruction. And urine culture came back positive for staph aureus, patient received therapy before with IV vancomycin, we'll going to check with ID team if she is going to need more therapy. She feels generally weak, she still nothing by mouth, with no vomiting, NG tube is in place with little or no secretions. She has. Umbilical abdominal pain and tenderness, she was passing gases and have bowel movement the night before yesterday as per patient Blood pressure on the low-normal signed 94/69 and reversal vitals are stable. WBC went up to 19.4 K, sodium 1:30, creatinine 0.3. Magnesium 1.5 11/22/2019 Patient is alert and awake. She still complaining from abdominal pain and tenderness, she is tolerating only a little of her liquid diet although there is no vomiting and she has normal bowel movement and passing only gases. Her abdomen looks distended and she has tenderness in the upper part of the abdomen Patient feels weak has had difficulty getting up and moving around Blood pressure low-normal 99/67, still have leukocytosis of 19.4 K, hemoglobin 9.4. Sodium 129, creatinine normal, potassium of 3.3 Surgery team on the case and the recommended colonoscopy at certain point., Patient informed and she agrees with this recommendation.. Selective for and is negative. Low TIBC suggestive of anemia of chronic disease. Patient is already on 3 antibiotics with cefepime, Flagyl and IV vancomycin for her intra-abdominal infection and UTI.. She still in normal saline at 90 mL/h Last for physical therapy evaluation 11/23/2019 Patient management comfortable not in distress, she did not eat follow-up of diabetes and day, she is trying to eat more today, she still on liquid diet however her abdominal pain around the periumbilical since same with tenderness but no rebound tenderness. No nausea vomiting however last night she has loose bowel movement as well as she is passing gas. She stent in bed most of the time and physical therapy is consulted. No urinary symptoms like no dysuria or change in frequency, staff in the urine is colonization and no need for vancomycin which was stopped by ID team Blood pressure is stable at 105/72, fever subsided. The loose is coming down to 15.1 K, on sodium is up to 131. 11/24/2019 The patient sitting in chair, not in distress. Patient denies chest pain or dyspnea. However she is not eating well while she is on liquid diet, she still have some abdominal pain, no bowel movement or passing gases yesterday. Patient was started on bowel regiment by surgery team Surgical team are planning for patient to go for colonoscopy on Thursday11/25/2019 Patient is lying in bed comfortable not in distress. She is not eating, she got suppository followed by loose bowel movement, no vomiting abdominal pain is controlled. She is started on TPN and she is tolerating that well Left upper extremity ultrasound is negative for DVT Planned for coloscopy on Thursday11/26/2019 Patient is clinically similar to yesterday, she is not eating while she is on TPN. No vomiting abdominal pain is controlled she has no bowel movement despite of several bowel preparations. CBC, BMP, magnesium and phosphorus are unremarkable We will keep to follow up Objective - Vital Signs Vital signs: Vital Signs Temp 98.2 F 11/26/19 05:00 Pulse 82 11/26/19 05:00 Resp 18 11/26/19 05:00 BP 96/64 11/26/19 05:00 Pulse Ox 97 11/26/19 05:00 Intake & Output 11/25/19 11/26/19 11/26/19 18:59 06:59 18:59 Weight 40.9 kg Other: Voiding Method Bedside Commode Bedside Commode Bedside Commode # Voids 1 - Exam GENERAL: The patient is alert and oriented x3, not in any acute distress. Well developed, well nourished. HEENT: Pupils are round and equally reacting to light. EOMI. No scleral icterus. No conjunctival pallor. Normocephalic, atraumatic. No pharyngeal erythema. No thyromegaly. CARDIOVASCULAR: S1 and S2 present. No murmurs, rubs, or gallops. PULMONARY: Chest is clear to auscultation, no wheezing or crackles. -ABDOMEN: Soft, periumbilical tenderness, slightly distended, normoactive bowel sounds. No palpable organomegaly. NG tube is in a Place MUSCULOSKELETAL: No joint swelling or deformity. EXTREMITIES: No cyanosis, clubbing, or pedal edema. NEUROLOGICAL: Gross neurological examination did not reveal any focal deficits. SKIN: No rashes. no petechiae. - Labs CBC & Chem 7: 11/26/19 06:38 11/26/19 02:35 Labs: Abnormal Lab Results - Last 24 Hours (Table) 11/25/19 11/25/19 11/25/19 Range/Units 11:11 16:47 23:53 RBC (3.80-5.40) m/uL Hgb (11.4-16.0) gm/dL Hct (34.0-46.0) % MCHC (31.0-37.0) g/dL RDW (11.5-15.5) % Sodium (137-145) mmol/L BUN (7-17) mg/dL Creatinine (0.52-1.04) mg/dL POC Glucose (mg/dL) 124 H 122 H 116 H (75-99) mg/dL Calcium (8.4-10.2) mg/dL Total Protein (6.3-8.2) g/dL Albumin (3.5-5.0) g/dL 11/26/19 11/26/19 Range/Units 02:35 06:38 RBC 3.18 L (3.80-5.40) m/uL Hgb 8.8 L (11.4-16.0) gm/dL Hct 28.9 L (34.0-46.0) % MCHC 30.5 L (31.0-37.0) g/dL RDW 16.7 H (11.5-15.5) % Sodium 131 L (137-145) mmol/L BUN 5 L (7-17) mg/dL Creatinine 0.28 L (0.52-1.04) mg/dL POC Glucose (mg/dL) (75-99) mg/dL Calcium 7.5 L (8.4-10.2) mg/dL Total Protein 4.2 L (6.3-8.2) g/dL Albumin 2.0 L (3.5-5.0) g/dL Microbiology - Last 24 Hours (Table) 11/24/19 15:45 Blood Culture - Preliminary Blood No Growth after 24 hours 11/24/19 15:47 Blood Culture - Preliminary Blood No Growth after 24 hours Assessment and Plan Assessment: Acute small bowel obstruction, versus ileus Febrile neutropenia, improved Acute diarrhea along with nausea due to chemotheraphy. Improved Bicytopenia due to chemotherapy. Improved and growth factors is stopped Sepsis secondary to urinary tract infection Hyponatremia likely hypoosmolar. Metastatic breast cancer with mets to colon and peritoneum. Currently on chemotherapy 1 week prior to admission Chronic back pain with compression fracture at T7 History of SIADH Hydronephrosis Subclinical hypothyroidism Right carpal tunnel syndrome History of bowel obstruction Anxiety Moderate protein calorie malnutrition Plan: This is a pleasant 69 years old female who presents with small bowel obstruction, febrile neutropenia related to her chemotherapy for breast cancer , resolved and UTI. Patient's vitals closely by infectious disease, surgery and oncology service. Continue with antibiotics as per ID team recommendation. Continue with IV fluids. Continue with TPN. Plan for colonoscopy on 11/27 Labs and medication were reviewed.. Continue same treatment. Continue with sym ptomatic treatment. Resume home medication. Monitor lytes and vitals. DVT and GI prophylaxis. Further recommendations of the clinical course of the patient DVT prophylaxis: Subcutaneous heparin GI Prophylaxis: Ppi Prognosis is guarded
[2019-11-26 11:30] LABS: Glucose,Whole Blood 123 mg/dL (75-99)
--- NOTE | 2019-11-26 11:49 | P.PN ---
Progress Note - Text Progress Note Date: 11/26/19 The patient's resting comfortably in her bed. She denies any significant pain. On exam vital signs are stable. Abdomen soft. There patient scheduled for colonoscopy Dr. Etienne on Thursday.
[2019-11-26] MEDS: 1: MVI, ADULT NO.4 WITH VIT K 10 ML, TRACE (CONC-1ML/DOSE) 1 ML in AMINO ACID 4.25%-D10W IV SCH ×3 (12:29)
[2019-11-26] MEDS: FAT EMULSION 20% 250 ML IV SCH (12:29)
[2019-11-26 17:01] LABS: Glucose,Whole Blood 134 mg/dL (75-99)
[2019-11-26] MEDS: ZOLPIDEM 5 MG TAB PO SCH (21:50)
[2019-11-26] MEDS: ALPRAZolam 0.5 MG TAB PO PRN (21:50)
--- NOTE | 2019-11-27 00:02 | PN ---
PROGRESS NOTE DATE OF SERVICE: 11/26/2019 REASON FOR FOLLOWUP: Fever with concern for abdominal source. INTERVAL HISTORY: Patient is currently afebrile. The patient is breathing comfortably. The patient denies any chest pain or shortness of breath or cough. Some abdominal discomfort but no worsening. No bowel movement or passing any gas. EXAMINATION: Her blood pressure is 113/92 with a pulse of 90, temperature 98.5. She is 92% on room air. General description is an elderly female lying in bed in no distress. Respiratory system: Unlabored breathing. Clear to auscultation anteriorly. Heart S1, S2. Regular rate and rhythm. Abdomen soft, no tenderness. No rigidity. LABS: Hemoglobin 8.1, white count 10.2. BUN of 5, creatinine 0.28. DIAGNOSTIC IMPRESSION AND PLAN: 1. Patient admitted to the hospital with febrile neutropenia. Source is likely abdominal. Did have small bowel obstruction along with . The patient is currently covered with cefepime and Flagyl to continue. 2. Positive culture likely concern as the patient corresponding for followup UA and culture has been negative. MMODL / IJN: [id number] /
[2019-11-27] MEDS: metroNIDAZOLE-NS PMX 500 MG in SALINE 1 100ML.BAG IVPB SCH ×3 (00:12→17:06)
[2019-11-27] MEDS: INSULIN ASPART (NovoLOG) 100 UNIT/ML VIAL SQ SCH ×4 (00:14→16:55)
[2019-11-27 00:15] LABS: Glucose,Whole Blood 116 mg/dL (75-99)
[2019-11-27] MEDS: HYDROmorphone 1 MG/ML 1 ML SYRINGE IVP PRN ×8 (01:00→23:53)
[2019-11-27] MEDS: 1: MVI, ADULT NO.4 WITH VIT K 10 ML, TRACE (CONC-1ML/DOSE) 1 ML in AMINO ACID 4.25%-D10W IV SCH ×6 (05:42→15:14)
[2019-11-27 06:04] LABS: Glucose,Whole Blood 97 mg/dL (75-99)
[2019-11-27 06:48] LABS: African American GFR (CKD) >90 (>60 ml/min/1.73 sqM); Anion Gap 1 mmol/L; Blood Urea Nitrogen 8 mg/dL (7-17); Calcium 7.8 mg/dL (8.4-10.2); Carbon Dioxide 28 mmol/L (22-30); Chloride 100 mmol/L (98-107); Glucose 89 mg/dL (74-99); Magnesium 1.7 mg/dL (1.6-2.3); Non-African American GFR(CKD) >90 (>60 ml/min/1.73 sqM); Phosphorus 3.3 mg/dL (2.5-4.5); Potassium 4.1 mmol/L (3.5-5.1); Sodium 129 mmol/L (137-145)
[2019-11-27] MEDS: PANTOPRAZOLE 40 MG/10 ML VIAL IVP SCH (08:01)
[2019-11-27] MEDS: DOCUSATE 100 MG CAP PO SCH ×2 (08:01→20:51)
[2019-11-27] MEDS: HEPARIN SODIUM,PORCINE 5,000 UNIT/ML 1 ML VIAL SQ SCH ×2 (08:01→20:51)
[2019-11-27] MEDS: CEFEPIME 2 GM in SODIUM CHLORIDE 0.9% 100 ML IVPB SCH ×3 (08:02→23:50)
[2019-11-27] MEDS: POLYETHYLENE GLYCOL LYTES SOLN 4,000 ML SOLN.RECON PO SCH (08:11)
[2019-11-27] MEDS: ONDANSETRON 4 MG/2 ML VIAL IVP PRN ×2 (08:17→16:09)
[2019-11-27] MEDS: FAT EMULSION 20% 250 ML IV SCH (09:16)
--- NOTE | 2019-11-27 09:24 | P.PN ---
Progress Note - Text Progress Note Date: 11/27/19 The patient is resting comfortably in bed. She is started her bowel prep. She is still in. On exam vital signs are stable. Abdomen soft. There patient undergo endoscopy with Dr. Etienne tomorrow.
[2019-11-27 11:11] LABS: Glucose,Whole Blood 120 mg/dL (75-99)
[2019-11-27] MEDS ORDERED: PEG 3350-NA SULF,BICARB,CL/KCL 4,000 ML BOTTLE PO ONE (13:32)
[2019-11-27 16:49] LABS: Glucose,Whole Blood 103 mg/dL (75-99)
[2019-11-27] MEDS ORDERED: FUROSEMIDE 10 MG/ML 4 ML VIAL IV STA (21:52)
--- NOTE | 2019-11-27 21:56 | P.PN ---
Subjective From a course: Patient is 69-year-old female with a known history of metastatic left breast cancer with mets to colon, SIADH, subclinical hypothyroidism, moderate protein calorie moderation, anxiety initially presented to ER at [facility] with complaints of persistent diarrhea and nausea. Denies any episodes of vomiting. Denies any severe abdominal discomfort. Patient does have metastatic lesions in the colon. Patient is currently receiving chemotherapy last time about 1 week ago with a Mediport. Initially denied any complaints of fever or chills. No complaints of chest pain. No cough or sputum production. No leg swelling. Denied any dysuria or hematuria. Patient was found to be neutropenic and hyponatremia with sodium level 126. CT of the abdomen pelvis showed colonic wall thickening felt to be related to her metastasis. There was a small amount of ascites noted with a question of peritoneal implants, there was small urothelial thickening and questionable for possible urinary tract infection. And small bilateral pleural effusions were noted. Patient became febrile this afternoon with T-max of 101.3 Laboratory data showed WBC of 0.9, hemoglobin 10.6 and platelets 255 Sodium level is 126 Chloride 97, bicarb is 21 BUN 12 and creatinine 0.43 Calcium 8.0 Albumin 3.0 Coronavirus not detected. Urinalysis showed cloudy, nitrite positive and large leukocyte esterase with WBC 7 11/19/2019 Patient is currently lying in the bed, feeling very weak. Patient was febrile yesterday and septic work-up was done. Patient was found to have urinary tract infection and also due to neutropenia patient was started broad-spectrum antibiotics and ID was consulted. Currently patient is on vancomycin and cefepime. Afebrile now. Potassium is 2.9 which is being replaced and magnesium as well. CT of the abdomen pelvis was ordered due to complaints of abdominal pain mainly in the lower region. No complaints of diarrhea now. No headache or dizziness. No chest pain or shortness of breath. 11/20/2019 Patient is currently lying in the bed comfortably. Afebrile overnight. Currently being continued on broad-spectrum antibiotics in the form of vancomycin and cefepime. ID is following. Urine culture is pending. Otherwise patient denied any chest pain or shortness breath. Patient still having abdominal discomfort and CT of the abdomen pelvis was ordered yesterday which showed small bowel dilatation up to 3 cm with air-fluid levels. Small bowel obstruction suggested. Patient was placed on NG tube and diet change to nothing by mouth. General surgery was consulted. Patient will be continued on IV hydration. Subjective, this is the first day I take care of the patient 11/21/2019 This is a pleasant lady who was admitted on 11/16 for diarrhea, she came from [facility]. She found to have febrile neutropenia, bowel obstruction and UTI. Patient is been evaluated by several consults INCLUDING infectious disease, surgery and oncology. She has history of metastatic left breast cancer to bone on possible to: On peritoneal she got chemotherapy about one week earlier. She's been treated currently on cefepime and IV Flagyl, also she is on normal saline at 90 mL/h. She has increased tumor markers of CAD 15-30 into Efren and CA 27-29, CT of the abdomen showing bowel obstruction. And urine culture came back positive for staph aureus, patient received therapy before with IV vancomycin, we'll going to check with ID team if she is going to need more therapy. She feels generally weak, she still nothing by mouth, with no vomiting, NG tube is in place with little or no secretions. She has. Umbilical abdominal pain and tenderness, she was passing gases and have bowel movement the night before yesterday as per patient Blood pressure on the low-normal signed 94/69 and reversal vitals are stable. WBC went up to 19.4 K, sodium 1:30, creatinine 0.3. Magnesium 1.5 11/22/2019 Patient is alert and awake. She still complaining from abdominal pain and tenderness, she is tolerating only a little of her liquid diet although there is no vomiting and she has normal bowel movement and passing only gases. Her abdomen looks distended and she has tenderness in the upper part of the abdomen Patient feels weak has had difficulty getting up and moving around Blood pressure low-normal 99/67, still have leukocytosis of 19.4 K, hemoglobin 9.4. Sodium 129, creatinine normal, potassium of 3.3 Surgery team on the case and the recommended colonoscopy at certain point., Patient informed and she agrees with this recommendation.. Selective for and is negative. Low TIBC suggestive of anemia of chronic disease. Patient is already on 3 antibiotics with cefepime, Flagyl and IV vancomycin for her intra-abdominal infection and UTI.. She still in normal saline at 90 mL/h Last for physical therapy evaluation 11/23/2019 Patient management comfortable not in distress, she did not eat follow-up of diabetes and day, she is trying to eat more today, she still on liquid diet however her abdominal pain around the periumbilical since same with tenderness but no rebound tenderness. No nausea vomiting however last night she has loose bowel movement as well as she is passing gas. She stent in bed most of the time and physical therapy is consulted. No urinary symptoms like no dysuria or change in frequency, staff in the urine is colonization and no need for vancomycin which was stopped by ID team Blood pressure is stable at 105/72, fever subsided. The loose is coming down to 15.1 K, on sodium is up to 131. 11/24/2019 The patient sitting in chair, not in distress. Patient denies chest pain or dyspnea. However she is not eating well while she is on liquid diet, she still have some abdominal pain, no bowel movement or passing gases yesterday. Patient was started on bowel regiment by surgery team Surgical team are planning for patient to go for colonoscopy on Thursday11/25/2019 Patient is lying in bed comfortable not in distress. She is not eating, she got suppository followed by loose bowel movement, no vomiting abdominal pain is controlled. She is started on TPN and she is tolerating that well Left upper extremity ultrasound is negative for DVT Planned for coloscopy on Thursday11/26/2019 Patient is clinically similar to yesterday, she is not eating while she is on TPN. No vomiting abdominal pain is controlled she has no bowel movement despite of several bowel preparations. CBC, BMP, magnesium and phosphorus are unremarkable We will keep to follow up 11/27/2019 pt is awake, no distress, she is being prepared with bowel regiments and golytly for colonoscopy tomorrow and she is having several bowel movements , no wor sening abd pain , not eating much and she is on TPN. she has swelling in her extremites both upper and lower and normal saline was discontinued and give one dose of lasix vitals are stable, labs are reviewed ,her sodium today is 129, creatinine is normal at 0.3 she is on cefepime and flagyl as well Objective - Vital Signs Vital signs: Vital Signs Temp 98.2 F 11/27/19 12:11 Pulse 91 11/27/19 12:11 Resp 16 11/27/19 12:11 BP 109/72 11/27/19 12:11 Pulse Ox 99 11/27/19 12:11 Intake & Output 11/27/19 11/27/19 11/28/19 06:59 18:59 06:59 Intake Total 250 Balance 250 Intake: Oral 250 Other: Voiding Method Bedside Commode Bedside Commode # Voids 2 4 # Bowel Movements 2 - Exam GENERAL: The patient is alert and oriented x3, not in any acute distress. Well developed, well nourished. HEENT: Pupils are round and equally reacting to light. EOMI. No scleral icterus. No conjunctival pallor. Normocephalic, atraumatic. No pharyngeal erythema. No thyromegaly. CARDIOVASCULAR: S1 and S2 present. No murmurs, rubs, or gallops. PULMONARY: Chest is clear to auscultation, no wheezing or crackles. -ABDOMEN: Soft, periumbilical tenderness, slightly distended, normoactive bowel sounds. No palpable organomegaly. NG tube is in a Place MUSCULOSKELETAL: No joint swelling or deformity. EXTREMITIES: No cyanosis, clubbing, or pedal edema. NEUROLOGICAL: Gross neurological examination did not reveal any focal deficits. SKIN: No rashes. no petechiae. - Labs CBC & Chem 7: 11/26/19 06:38 11/27/19 06:15 Labs: Abnormal Lab Results - Last 24 Hours (Table) 11/27/19 11/27/19 11/27/19 Range/Units 00:13 06:15 11:09 Sodium 129 L (137-145) mmol/L Creatinine 0.30 L (0.52-1.04) mg/dL POC Glucose (mg/dL) 116 H 120 H (75-99) mg/dL Calcium 7.8 L (8.4-10.2) mg/dL 11/27/19 Range/Units 16:47 Sodium (137-145) mmol/L Creatinine (0.52-1.04) mg/dL POC Glucose (mg/dL) 103 H (75-99) mg/dL Calcium (8.4-10.2) mg/dL Microbiology - Last 24 Hours (Table) 11/24/19 15:45 Blood Culture - Preliminary Blood No Growth after 72 hours 11/24/19 15:47 Blood Culture - Preliminary Blood No Growth after 72 hours Assessment and Plan Assessment: Acute small bowel obstruction, versus ileus Febrile neutropenia, improved Acute diarrhea along with nausea due to chemotheraphy. Improved Bicytopenia due to chemotherapy. Improved and growth factors is stopped Sepsis secondary to urinary tract infection Hyponatremia likely hypoosmolar. Metastatic breast cancer with mets to colon and peritoneum. Currently on chemotherapy 1 week prior to admission Chronic back pain with compression fracture at T7 History of SIADH Hydronephrosis Subclinical hypothyroidism Right carpal tunnel syndrome History of bowel obstruction Anxiety Moderate protein calorie malnutrition Plan: This is a pleasant 69 years old female who presents with small bowel obstruction, febrile neutropenia related to her chemotherapy for breast cancer , resolved and UTI. Patient's vitals closely by infectious disease, surgery and oncology service. Continue with antibiotics as per ID team recommendation. Continue with IV fluids. Continue with TPN. Plan for colonoscopy on 11/27 Labs and medication were reviewed.. Continue same treatment. Continue with symptomatic treatment. Resume home medication. Monitor lytes and vitals. DVT and GI prophylaxis. Further recommendations of the clinical course of the patient DVT prophylaxis: Subcutaneous heparin GI Prophylaxis: Ppi Prognosis is guarded
[2019-11-27] MEDS ORDERED: 1: MVI, ADULT NO.4 WITH VIT K 10 ML, TRACE (CONC-1ML/DOSE) 1 ML, SODIUM CHLORIDE 2.5MEQ/ IV SCH ×4 (22:00)
[2019-11-27] MEDS: ZOLPIDEM 5 MG TAB PO SCH (22:07)
[2019-11-27] MEDS: ALPRAZolam 0.5 MG TAB PO PRN (22:07)
[2019-11-27 23:36] LABS: Glucose,Whole Blood 128 mg/dL (75-99)
[2019-11-28] MEDS: INSULIN ASPART (NovoLOG) 100 UNIT/ML VIAL SQ SCH ×4 (00:39→18:24)
[2019-11-28] MEDS: metroNIDAZOLE-NS PMX 500 MG in SALINE 1 100ML.BAG IVPB SCH ×3 (00:41→18:18)
[2019-11-28] MEDS: HYDROmorphone 1 MG/ML 1 ML SYRINGE IVP PRN ×7 (02:52→22:00)
[2019-11-28] MEDS: ONDANSETRON 4 MG/2 ML VIAL IVP PRN ×2 (02:54→18:32)
[2019-11-28] MEDS: SODIUM CHLORIDE 0.9% 1,000 ML IV SCH (05:26)
[2019-11-28 05:27] LABS: Glucose,Whole Blood 125 mg/dL (75-99)
--- NOTE | 2019-11-28 05:45 | P.HPADDEND ---
H&P Addendum H&P Addendum Date: 11/28/19 Patient had a bowel prep over the weekend. We'll proceed with lower endoscopy for direct imaging of neoplastic process at splenic flexure with biopsies.
--- NOTE | 2019-11-28 06:47 | PN ---
PROGRESS NOTE DATE OF SERVICE: 11/27/2019 REASON FOR FOLLOWUP: Abdominal infection. INTERVAL HISTORY: The patient is currently afebrile. The patient is breathing comfortably. Denies having any chest pain or shortness of breath or cough. Some abdominal discomfort, nausea, but no vomiting and no diarrhea. PHYSICAL EXAMINATION: Blood pressure 109/72 with a pulse of 91, temperature 98.2. She is 99% on room air. General description is an elderly female lying in bed in no distress. RESPIRATORY SYSTEM: Unlabored breathing, clear to auscultation anteriorly. HEART: S1, S2. Regular rate and rhythm. ABDOMEN: Soft, mildly distended, no guarding or rigidity. LABS: Creatinine 0.30. Blood cultures have been negative. DIAGNOSTIC IMPRESSION AND PLAN: 1. Patient with fever with concern for possible abdominal source in this patient who did have significant dilatation of her cecum and small-bowel obstruction. The patient is scheduled for colonoscopy tomorrow. To continue cefepime and Flagyl. 2. Positive urine culture with MRSA, likely colonizer or contamination. Repeat UA has been negative. No need for vancomycin. MMODL / IJN: [id number] /
[2019-11-28] MEDS ORDERED: PROPOFOL 10 MG/ML 20 ML VIAL IV ONE (07:02)
[2019-11-28 07:09] LABS: African American GFR (CKD) >90 (>60 ml/min/1.73 sqM); Anion Gap 2 mmol/L; Blood Urea Nitrogen 9 mg/dL (7-17); Calcium 7.6 mg/dL (8.4-10.2); Carbon Dioxide 29 mmol/L (22-30); Chloride 97 mmol/L (98-107); Glucose 109 mg/dL (74-99); Magnesium 1.7 mg/dL (1.6-2.3); Non-African American GFR(CKD) >90 (>60 ml/min/1.73 sqM); Phosphorus 3.2 mg/dL (2.5-4.5); Potassium 4.2 mmol/L (3.5-5.1); Sodium 128 mmol/L (137-145)
[2019-11-28] MEDS ORDERED: IV FLUID CONTINUATION 1,000 ML IV ONE ×2 (07:11)
--- NOTE | 2019-11-28 07:46 | P.PCN ---
Date of Procedure: 11/28/19 Description of Procedure: PREOPERATIVE DIAGNOSIS: Metastatic breast cancer Change in bowel habits Abnormal computed tomography scan for neoplasm splenic flexure Underweight due to inadequate oral intake POSTOPERATIVE DIAGNOSIS: Metastatic breast cancer Change in bowel habits Abnormal computed tomography scan for neoplasm splenic flexure Underweight due to inadequate oral intake Partial large bowel obstruction splenic flexure External hemorrhoids. Diverticulosis OPERATION: Colonoscopy to splenic flexure with cold forcep biopsies SURGEON: Salma Downey MD. ANESTHESIA: MAC. INDICATIONS: The patient is a 69-year-old male who presents change in bowel habits, including abnormal computed tomography scan with thickening at the splenic flexure. Benefits and risks were described and informed consent was obtained. DESCRIPTION OF PROCEDURE: The patient had undergone bowel prep. She had been brought into the endoscopy room and laid in the left lateral decubitus position. After adequate intravenous sedation, the rectum was examined with 2% lidocaine jelly. External hemorrhoids were encountered. The rectal tone was within normal limits. No lesions were palpated in the rectal vault. An Olympus colonoscope was advanced along the rectum to a near complete complete obstructing lesion at the splenic flexure of extrinsic appearance. Moderate sigmoid diverticulosis including redundant; identified. Mucosa at sigmoid obstruction without polypoid lesions identified. Biopsies obtained with cold forceps biopsy. Internal and external hemorrhoids, grade 3 was found. The colonoscope was removed. Withdrawal time was over 6 minutes. FINDINGS: [place] preparation quality scale 2 (1-5) External prolapsed hemorrhoids. Scope advanced to the splenic flexure with thickened mucosal ramírez of with less than 1.5 cm orifice. Circumferential splenic flexure near obstruction with biopsies obtained cold forceps At the end of procedure, abdomen soft. RECOMMENDATIONS: Recommend completion barium enema for additional management Clear liquid diet fit in the interim
[2019-11-28] MEDS: PANTOPRAZOLE 40 MG/10 ML VIAL IVP SCH (08:30)
[2019-11-28] MEDS: DOCUSATE 100 MG CAP PO SCH ×2 (08:31→20:20)
[2019-11-28] MEDS: HEPARIN SODIUM,PORCINE 5,000 UNIT/ML 1 ML VIAL SQ SCH ×2 (08:31→20:20)
[2019-11-28] MEDS: CEFEPIME 2 GM in SODIUM CHLORIDE 0.9% 100 ML IVPB SCH ×3 (08:32→20:21)
[2019-11-28] MEDS: FAT EMULSION 20% 250 ML IV SCH (08:50)
[2019-11-28 11:07] LABS: Glucose,Whole Blood 134 mg/dL (75-99)
[2019-11-28] MEDS: MAGNESIUM SULFATE-D5W PMX 1 GM in DEXTROSE/WATER 1 100ML.BAG IVPB SCH ×2 (11:28→12:38)
--- NOTE | 2019-11-28 12:40 | P.PN ---
Subjective From a course: Patient is 69-year-old female with a known history of metastatic left breast cancer with mets to colon, SIADH, subclinical hypothyroidism, moderate protein calorie moderation, anxiety initially presented to ER at [facility] with complaints of persistent diarrhea and nausea. Denies any episodes of vomiting. Denies any severe abdominal discomfort. Patient does have metastatic lesions in the colon. Patient is currently receiving chemotherapy last time about 1 week ago with a Mediport. Initially denied any complaints of fever or chills. No complaints of chest pain. No cough or sputum production. No leg swelling. Denied any dysuria or hematuria. Patient was found to be neutropenic and hyponatremia with sodium level 126. CT of the abdomen pelvis showed colonic wall thickening felt to be related to her metastasis. There was a small amount of ascites noted with a question of peritoneal implants, there was small urothelial thickening and questionable for possible urinary tract infection. And small bilateral pleural effusions were noted. Patient became febrile this afternoon with T-max of 101.3 Laboratory data showed WBC of 0.9, hemoglobin 10.6 and platelets 255 Sodium level is 126 Chloride 97, bicarb is 21 BUN 12 and creatinine 0.43 Calcium 8.0 Albumin 3.0 Coronavirus not detected. Urinalysis showed cloudy, nitrite positive and large leukocyte esterase with WBC 7 11/19/2019 Patient is currently lying in the bed, feeling very weak. Patient was febrile yesterday and septic work-up was done. Patient was found to have urinary tract infection and also due to neutropenia patient was started broad-spectrum antibiotics and ID was consulted. Currently patient is on vancomycin and cefepime. Afebrile now. Potassium is 2.9 which is being replaced and magnesium as well. CT of the abdomen pelvis was ordered due to complaints of abdominal pain mainly in the lower region. No complaints of diarrhea now. No headache or dizziness. No chest pain or shortness of breath. 11/20/2019 Patient is currently lying in the bed comfortably. Afebrile overnight. Currently being continued on broad-spectrum antibiotics in the form of vancomycin and cefepime. ID is following. Urine culture is pending. Otherwise patient denied any chest pain or shortness breath. Patient still having abdominal discomfort and CT of the abdomen pelvis was ordered yesterday which showed small bowel dilatation up to 3 cm with air-fluid levels. Small bowel obstruction suggested. Patient was placed on NG tube and diet change to nothing by mouth. General surgery was consulted. Patient will be continued on IV hydration. Subjective, this is the first day I take care of the patient 11/21/2019 This is a pleasant lady who was admitted on 11/16 for diarrhea, she came from [facility]. She found to have febrile neutropenia, bowel obstruction and UTI. Patient is been evaluated by several consults INCLUDING infectious disease, surgery and oncology. She has history of metastatic left breast cancer to bone on possible to: On peritoneal she got chemotherapy about one week earlier. She's been treated currently on cefepime and IV Flagyl, also she is on normal saline at 90 mL/h. She has increased tumor markers of CAD 15-30 into Efren and CA 27-29, CT of the abdomen showing bowel obstruction. And urine culture came back positive for staph aureus, patient received therapy before with IV vancomycin, we'll going to check with ID team if she is going to need more therapy. She feels generally weak, she still nothing by mouth, with no vomiting, NG tube is in place with little or no secretions. She has. Umbilical abdominal pain and tenderness, she was passing gases and have bowel movement the night before yesterday as per patient Blood pressure on the low-normal signed 94/69 and reversal vitals are stable. WBC went up to 19.4 K, sodium 1:30, creatinine 0.3. Magnesium 1.5 11/22/2019 Patient is alert and awake. She still complaining from abdominal pain and tenderness, she is tolerating only a little of her liquid diet although there is no vomiting and she has normal bowel movement and passing only gases. Her abdomen looks distended and she has tenderness in the upper part of the abdomen Patient feels weak has had difficulty getting up and moving around Blood pressure low-normal 99/67, still have leukocytosis of 19.4 K, hemoglobin 9.4. Sodium 129, creatinine normal, potassium of 3.3 Surgery team on the case and the recommended colonoscopy at certain point., Patient informed and she agrees with this recommendation.. Selective for and is negative. Low TIBC suggestive of anemia of chronic disease. Patient is already on 3 antibiotics with cefepime, Flagyl and IV vancomycin for her intra-abdominal infection and UTI.. She still in normal saline at 90 mL/h Last for physical therapy evaluation 11/23/2019 Patient management comfortable not in distress, she did not eat follow-up of diabetes and day, she is trying to eat more today, she still on liquid diet however her abdominal pain around the periumbilical since same with tenderness but no rebound tenderness. No nausea vomiting however last night she has loose bowel movement as well as she is passing gas. She stent in bed most of the time and physical therapy is consulted. No urinary symptoms like no dysuria or change in frequency, staff in the urine is colonization and no need for vancomycin which was stopped by ID team Blood pressure is stable at 105/72, fever subsided. The loose is coming down to 15.1 K, on sodium is up to 131. 11/24/2019 The patient sitting in chair, not in distress. Patient denies chest pain or dyspnea. However she is not eating well while she is on liquid diet, she still have some abdominal pain, no bowel movement or passing gases yesterday. Patient was started on bowel regiment by surgery team Surgical team are planning for patient to go for colonoscopy on Thursday11/25/2019 Patient is lying in bed comfortable not in distress. She is not eating, she got suppository followed by loose bowel movement, no vomiting abdominal pain is controlled. She is started on TPN and she is tolerating that well Left upper extremity ultrasound is negative for DVT Planned for coloscopy on Thursday11/26/2019 Patient is clinically similar to yesterday, she is not eating while she is on TPN. No vomiting abdominal pain is controlled she has no bowel movement despite of several bowel preparations. CBC, BMP, magnesium and phosphorus are unremarkable We will keep to follow up 11/27/2019 pt is awake, no distress, she is being prepared with bowel regiments and golytly for colonoscopy tomorrow and she is having several bowel movements , no wor sening abd pain , not eating much and she is on TPN. she has swelling in her extremites both upper and lower and normal saline was discontinued and give one dose of lasix vitals are stable, labs are reviewed ,her sodium today is 129, creatinine is normal at 0.3 she is on cefepime and flagyl as well 11/28/2019 Patient is awake and alert, no other new complaint. Patient underwent colonoscopy today and found to have to splenic flexure with thickened mucosal wall and near obstruction, biopsy was taken and results are pending Recommended to continue with clear liquid diet. However patient does not have appetite and she still on TPN. Abdominal looks soft. No nausea vomiting. Vital signs stable and sodium is 128, we'll sodium chloride tablets. WBCs back to normal today at 10.2 K. Hemoglobin is 8.8. Patient continue on cefepime and Flagyl. IV fluids were stopped Objective - Vital Signs Vital signs: Vital Signs Temp 98.9 F 11/28/19 11:19 Pulse 90 11/28/19 11:19 Resp 16 11/28/19 11:19 BP 111/74 11/28/19 11:19 Pulse Ox 97 11/28/19 11:19 Intake & Output 11/27/19 11/28/19 11/28/19 18:59 06:59 18:59 Intake Total 240 50 Balance 240 50 Weight 40.9 kg Intake: IV 50 Oral 240 Other: Voiding Method Bedside Commode Bedside Commode Bedside Commode # Voids 4 1 # Bowel Movements 2 1 - Exam GENERAL: The patient is alert and oriented x3, not in any acute distress. Well developed, well nourished. HEENT: Pupils are round and equally reacting to light. EOMI. No scleral icterus. No conjunctival pallor. Normocephalic, atraumatic. No pharyngeal erythema. No thyromegaly. CARDIOVASCULAR: S1 and S2 present. No murmurs, rubs, or gallops. PULMONARY: Chest is clear to auscultation, no wheezing or crackles. -ABDOMEN: Soft, periumbilical tenderness, slightly distended, normoactive bowel sounds. No palpable organomegaly. NG tube is in a Place MUSCULOSKELETAL: No joint swelling or deformity. EXTREMITIES: No cyanosis, clubbing, or pedal edema. NEUROLOGICAL: Gross neurological examination did not reveal any focal deficits. SKIN: No rashes. no petechiae. - Labs CBC & Chem 7: 11/26/19 06:38 11/28/19 06:10 Labs: Abnormal Lab Results - Last 24 Hours (Table) 11/27/19 11/27/19 11/28/19 Range/Units 16:47 23:34 05:26 Sodium (137-145) mmol/L Chloride (98-107) mmol/L Creatinine (0.52-1.04) mg/dL Glucose (74-99) mg/dL POC Glucose (mg/dL) 103 H 128 H 125 H (75-99) mg/dL Calcium (8.4-10.2) mg/dL 11/28/19 11/28/19 Range/Units 06:10 11:06 Sodium 128 L (137-145) mmol/L Chloride 97 L (98-107) mmol/L Creatinine 0.30 L (0.52-1.04) mg/dL Glucose 109 H (74-99) mg/dL POC Glucose (mg/dL) 134 H (75-99) mg/dL Calcium 7.6 L (8.4-10.2) mg/dL Microbiology - Last 24 Hours (Table) 11/24/19 15:45 Blood Culture - Preliminary Blood No Growth after 72 hours 11/24/19 15:47 Blood Culture - Preliminary Blood No Growth after 72 hours Assessment and Plan Assessment: Acute small bowel obstruction, versus ileus, she underwent colonoscopy on 11/27 found near obstruction and splenic flexure with significant mucosal membrane Febrile neutropenia, improved Acute diarrhea along with nausea due to chemotheraphy. Improved Bicytopenia due to chemotherapy. Improved and growth factors is stopped Sepsis secondary to urinary tract infection Hyponatremia likely hypoosmolar. Metastatic breast cancer with mets to colon and peritoneum. Currently on chemotherapy 1 week prior to admission Chronic back pain with compression fracture at T7 History of SIADH Hydronephrosis Subclinical hypothyroidism Right carpal tunnel syndrome History of bowel obstruction Anxiety Moderate protein calorie malnutrition Plan: This is a pleasant 69 years old female who presents with small bowel obstruction, febrile neutropenia related to her chemotherapy for breast cancer , resolved and UTI. Patient's vitals closely by infectious disease, surgery and oncology service. Continue with antibiotics as per ID team recommendation. Continue with IV fluids. Continue with TPN. Plan for colonoscopy on 11/27 Labs and medication were reviewed.. Continue same treatment. Continue with symptomatic treatment. Resume home medication. Monitor lytes and vitals. DVT and GI prophylaxis. Further recommendations of the clinical course of the patient DVT prophylaxis: Subcutaneous heparin GI Prophylaxis: Ppi Prognosis is guarded
[2019-11-28] MEDS: 1: MVI, ADULT NO.4 WITH VIT K 10 ML, TRACE (CONC-1ML/DOSE) 1 ML, SODIUM CHLORIDE 2.5MEQ/ IV SCH ×5 (15:03)
[2019-11-28] MEDS: SODIUM CHLORIDE TAB 1 GM TAB PO SCH ×2 (16:41→22:00)
[2019-11-28 17:07] LABS: Glucose,Whole Blood 115 mg/dL (75-99)
--- NOTE | 2019-11-28 19:39 | PN ---
PROGRESS NOTE DATE OF SERVICE: 11/28/2019 REASON FOR FOLLOWUP: Abdominal infection. INTERVAL HISTORY: The patient is currently afebrile. The patient is breathing comfortably. The patient denies having any chest pain or shortness of breath or cough. Minimal abdominal discomfort. No diarrhea. The patient is status post colonoscopy with evidence of splenic flexure treatment. PHYSICAL EXAMINATION: Her blood pressure is 111/74 with a pulse of 90, temperature 98.9. She is 97% on room air. General description is an elderly female lying in bed in no distress. RESPIRATORY SYSTEM: Unlabored breathing. Clear to auscultation anteriorly. HEART: S1, S2. Regular rate and rhythm. ABDOMEN: Soft. No tenderness. LABS: Creatinine 0.30. DIAGNOSTIC IMPRESSION AND PLAN: Patient admitted to hospital with febrile neutropenia. Source is abdominal in this patient who did have significant dilatation of cecum, now with evidence of obstructing tumor. The patient is covered cefepime and Flagyl; to continue while waiting for her condition to stabilize. Continue supportive care. MMODL / IJN: [id number] /
--- NOTE | 2019-11-28 19:52 | P.PN ---
Subjective Progress Note Date: 11/28/19 Principal diagnosis: Hyponatremia, neutropenia In follow-up today patient is tolerating clear liquids. She knows that her breast cancer tumor markers are elevated. She did have colonoscopy with Dr. Downey revealing splenic flexure narrowing, pending biopsies. She denies any specific complaints. Pain is controlled. No bleeding to report. Objective - Vital Signs Vital signs: Vital Signs Temp 98.9 F 11/28/19 11:19 Pulse 90 11/28/19 11:19 Resp 16 11/28/19 11:19 BP 111/74 11/28/19 11:19 Pulse Ox 97 11/28/19 11:19 Intake & Output 11/28/19 11/28/19 11/29/19 06:59 18:59 06:59 Intake Total 50 Balance 50 Weight 40.9 kg Intake: IV 50 Other: Voiding Method Bedside Commode Bedside Commode # Voids 1 # Bowel Movements 1 - Constitutional General appearance: Present: cooperative, no acute distress, thin - EENT Eyes: Present: anicteric sclerae, EOMI ENT: Present: hearing grossly normal - Respiratory Details: Respirations even and unlabored - Neurologic Neurologic: Present: CNII-XII intact - Musculoskeletal Musculoskeletal: Present: generalized weakness, strength equal bilaterally - Psychiatric Psychiatric: Present: A&O x's 3, appropriate affect, intact judgment & insight - Labs CBC & Chem 7: 11/26/19 06:38 11/28/19 06:10 Labs: Abnormal Lab Results - Last 24 Hours (Table) 11/27/19 11/28/19 11/28/19 Range/Units 23:34 05:26 06:10 Sodium 128 L (137-145) mmol/L Chloride 97 L (98-107) mmol/L Creatinine 0.30 L (0.52-1.04) mg/dL Glucose 109 H (74-99) mg/dL POC Glucose (mg/dL) 128 H 125 H (75-99) mg/dL Calcium 7.6 L (8.4-10.2) mg/dL 11/28/19 11/28/19 Range/Units 11:06 17:06 Sodium (137-145) mmol/L Chloride (98-107) mmol/L Creatinine (0.52-1.04) mg/dL Glucose (74-99) mg/dL POC Glucose (mg/dL) 134 H 115 H (75-99) mg/dL Calcium (8.4-10.2) mg/dL Microbiology - Last 24 Hours (Table) 11/24/19 15:45 Blood Culture - Preliminary Blood No Growth after 96 hours 11/24/19 15:47 Blood Culture - Preliminary Blood No Growth after 96 hours Assessment and Plan (1) Febrile neutropenia Narrative/Plan: WBC/ANC within normal limits. Patient treated for MRSA UTI Current Visit: Yes Status: Acute Priority: High Code(s): D70.9 - NEUTROPENIA, UNSPECIFIED; R50.81 - FEVER PRESENTING WITH CONDITIONS CLASSIFIED ELSEWHERE SNOMED Code(s): 704437677 (2) Abnormal abdominal CT scan Current Visit: Yes Status: Acute Priority: High Code(s): R93.5 - ABN FIN DINGS ON DX IMAGING OF ABD REGIONS, INC RETROPERITON SNOMED Code(s): 1563 [id number] (3) Metastatic breast cancer Narrative/Plan: Patient is status post first cycle of Taxotere, single agent. Patient asked me how many cycles before it would be known if the treatment was going to be successful. Typically it takes 3-4 cycles of treatment before it can be known if it's going to be active against cancer. Duration of effectiveness, at this later line of therapy, is very unpredictable. Patient asked if she should have colostomy. After reading reports and hearing from pt what Surgeon discussed with her, pt is at high risk for mechanical obstruction. If patient wants to attempt any further chemotherapy diverting ostomy would be an appropriate step to avoid obstruction and allow her to tolerate nutrition with adequate elimination. If treatment doesn't work, or if she chooses to stop treatment, colostomy would provide comfort and avoid complications/discomfort from obstruction in the future. Ultimately, it is her d ecision. I did ask her to discuss with each of her Doctors and get their opinions. She verbalized understanding Current Visit: Yes Status: Chronic Priority: High Code(s): C50.919 - MALIGNANT NEOPLASM OF UNSP SITE OF UNSPECIFIED FEMALE BREAST SNOMED Code(s): 112045958
[2019-11-28] MEDS: ZOLPIDEM 5 MG TAB PO SCH (21:29)
[2019-11-28] MEDS: ALPRAZolam 0.5 MG TAB PO PRN (21:29)
[2019-11-29] MEDS: INSULIN ASPART (NovoLOG) 100 UNIT/ML VIAL SQ SCH ×4 (00:14→18:28)
[2019-11-29 00:16] LABS: Glucose,Whole Blood 124 mg/dL (75-99)
[2019-11-29] MEDS: metroNIDAZOLE-NS PMX 500 MG in SALINE 1 100ML.BAG IVPB SCH ×3 (00:24→18:05)
[2019-11-29] MEDS: HYDROmorphone 1 MG/ML 1 ML SYRINGE IVP PRN ×6 (05:33→21:38)
[2019-11-29 05:49] LABS: Glucose,Whole Blood 92 mg/dL (75-99)
[2019-11-29 06:29] LABS: African American GFR (CKD) >90 (>60 ml/min/1.73 sqM); Anion Gap 3 mmol/L; Blood Urea Nitrogen 10 mg/dL (7-17); Calcium 7.6 mg/dL (8.4-10.2); Carbon Dioxide 26 mmol/L (22-30); Chloride 99 mmol/L (98-107); Glucose 85 mg/dL (74-99); Magnesium 2.2 mg/dL (1.6-2.3); Non-African American GFR(CKD) >90 (>60 ml/min/1.73 sqM); Phosphorus 3.4 mg/dL (2.5-4.5); Sodium 128 mmol/L (137-145)
[2019-11-29 07:13] LABS: Glucose,Whole Blood 110 mg/dL (75-99)
[2019-11-29] MEDS ORDERED: FUROSEMIDE 10 MG/ML 4 ML VIAL IV STA (07:52)
--- NOTE | 2019-11-29 07:58 | P.PN ---
Subjective From a course: Patient is 69-year-old female with a known history of metastatic left breast cancer with mets to colon, SIADH, subclinical hypothyroidism, moderate protein calorie moderation, anxiety initially presented to ER at [facility] with complaints of persistent diarrhea and nausea. Denies any episodes of vomiting. Denies any severe abdominal discomfort. Patient does have metastatic lesions in the colon. Patient is currently receiving chemotherapy last time about 1 week ago with a Mediport. Initially denied any complaints of fever or chills. No complaints of chest pain. No cough or sputum production. No leg swelling. Denied any dysuria or hematuria. Patient was found to be neutropenic and hyponatremia with sodium level 126. CT of the abdomen pelvis showed colonic wall thickening felt to be related to her metastasis. There was a small amount of ascites noted with a question of peritoneal implants, there was small urothelial thickening and questionable for possible urinary tract infection. And small bilateral pleural effusions were noted. Patient became febrile this afternoon with T-max of 101.3 Laboratory data showed WBC of 0.9, hemoglobin 10.6 and platelets 255 Sodium level is 126 Chloride 97, bicarb is 21 BUN 12 and creatinine 0.43 Calcium 8.0 Albumin 3.0 Coronavirus not detected. Urinalysis showed cloudy, nitrite positive and large leukocyte esterase with WBC 7 11/19/2019 Patient is currently lying in the bed, feeling very weak. Patient was febrile yesterday and septic work-up was done. Patient was found to have urinary tract infection and also due to neutropenia patient was started broad-spectrum antibiotics and ID was consulted. Currently patient is on vancomycin and cefepime. Afebrile now. Potassium is 2.9 which is being replaced and magnesium as well. CT of the abdomen pelvis was ordered due to complaints of abdominal pain mainly in the lower region. No complaints of diarrhea now. No headache or dizziness. No chest pain or shortness of breath. 11/20/2019 Patient is currently lying in the bed comfortably. Afebrile overnight. Currently being continued on broad-spectrum antibiotics in the form of vancomycin and cefepime. ID is following. Urine culture is pending. Otherwise patient denied any chest pain or shortness breath. Patient still having abdominal discomfort and CT of the abdomen pelvis was ordered yesterday which showed small bowel dilatation up to 3 cm with air-fluid levels. Small bowel obstruction suggested. Patient was placed on NG tube and diet change to nothing by mouth. General surgery was consulted. Patient will be continued on IV hydration. Subjective, this is the first day I take care of the patient 11/21/2019 This is a pleasant lady who was admitted on 11/16 for diarrhea, she came from [facility]. She found to have febrile neutropenia, bowel obstruction and UTI. Patient is been evaluated by several consults INCLUDING infectious disease, surgery and oncology. She has history of metastatic left breast cancer to bone on possible to: On peritoneal she got chemotherapy about one week earlier. She's been treated currently on cefepime and IV Flagyl, also she is on normal saline at 90 mL/h. She has increased tumor markers of CAD 15-30 into Efren and CA 27-29, CT of the abdomen showing bowel obstruction. And urine culture came back positive for staph aureus, patient received therapy before with IV vancomycin, we'll going to check with ID team if she is going to need more therapy. She feels generally weak, she still nothing by mouth, with no vomiting, NG tube is in place with little or no secretions. She has. Umbilical abdominal pain and tenderness, she was passing gases and have bowel movement the night before yesterday as per patient Blood pressure on the low-normal signed 94/69 and reversal vitals are stable. WBC went up to 19.4 K, sodium 1:30, creatinine 0.3. Magnesium 1.5 11/22/2019 Patient is alert and awake. She still complaining from abdominal pain and tenderness, she is tolerating only a little of her liquid diet although there is no vomiting and she has normal bowel movement and passing only gases. Her abdomen looks distended and she has tenderness in the upper part of the abdomen Patient feels weak has had difficulty getting up and moving around Blood pressure low-normal 99/67, still have leukocytosis of 19.4 K, hemoglobin 9.4. Sodium 129, creatinine normal, potassium of 3.3 Surgery team on the case and the recommended colonoscopy at certain point., Patient informed and she agrees with this recommendation.. Selective for and is negative. Low TIBC suggestive of anemia of chronic disease. Patient is already on 3 antibiotics with cefepime, Flagyl and IV vancomycin for her intra-abdominal infection and UTI.. She still in normal saline at 90 mL/h Last for physical therapy evaluation 11/23/2019 Patient management comfortable not in distress, she did not eat follow-up of diabetes and day, she is trying to eat more today, she still on liquid diet however her abdominal pain around the periumbilical since same with tenderness but no rebound tenderness. No nausea vomiting however last night she has loose bowel movement as well as she is passing gas. She stent in bed most of the time and physical therapy is consulted. No urinary symptoms like no dysuria or change in frequency, staff in the urine is colonization and no need for vancomycin which was stopped by ID team Blood pressure is stable at 105/72, fever subsided. The loose is coming down to 15.1 K, on sodium is up to 131. 11/24/2019 The patient sitting in chair, not in distress. Patient denies chest pain or dyspnea. However she is not eating well while she is on liquid diet, she still have some abdominal pain, no bowel movement or passing gases yesterday. Patient was started on bowel regiment by surgery team Surgical team are planning for patient to go for colonoscopy on Thursday11/25/2019 Patient is lying in bed comfortable not in distress. She is not eating, she got suppository followed by loose bowel movement, no vomiting abdominal pain is controlled. She is started on TPN and she is tolerating that well Left upper extremity ultrasound is negative for DVT Planned for coloscopy on Thursday11/26/2019 Patient is clinically similar to yesterday, she is not eating while she is on TPN. No vomiting abdominal pain is controlled she has no bowel movement despite of several bowel preparations. CBC, BMP, magnesium and phosphorus are unremarkable We will keep to follow up 11/27/2019 pt is awake, no distress, she is being prepared with bowel regiments and golytly for colonoscopy tomorrow and she is having several bowel movements , no wor sening abd pain , not eating much and she is on TPN. she has swelling in her extremites both upper and lower and normal saline was discontinued and give one dose of lasix vitals are stable, labs are reviewed ,her sodium today is 129, creatinine is normal at 0.3 she is on cefepime and flagyl as well 11/28/2019 Patient is awake and alert, no other new complaint. Patient underwent colonoscopy today and found to have to splenic flexure with thickened mucosal wall and near obstruction, biopsy was taken and results are pending Recommended to continue with clear liquid diet. However patient does not have appetite and she still on TPN. Abdominal looks soft. No nausea vomiting. Vital signs stable and sodium is 128, we'll sodium chloride tablets. WBCs back to normal today at 10.2 K. Hemoglobin is 8.8. Patient continue on cefepime and Flagyl. IV fluids were stopped 11/29/2019 Patient still feeling generally weak however she is awake and alert. No distress. She was placed on clear liquid diet after the colonoscopy done yesterday showing narrowing of the splenic flexure with mucosal thickening. However patient is consuming a lot of her diet because of low appetite and nausea. Continue with Zofran. Abdominal pain is minimal. She still has bilateral leg edema Vitals are stable.Sodium is 128, creatinine normal, sugar control. She continue on cefepime and IV Flagyl. Normal saline was discontinued and she is on TPN.: Biopsy is pending. Patient has been told she will need a second procedure or surgery, we'll follow recommendation by the surgical team Objective - Vital Signs Vital signs: Vital Signs Temp 97.0 F L 11/29/19 04:50 Pulse 78 11/29/19 04:50 Resp 18 11/29/19 04:50 BP 99/59 11/29/19 04:50 Pulse Ox 97 11/29/19 04:50 Intake & Output 11/28/19 11/29/19 11/29/19 18:59 06:59 18:59 Intake Total 50 Balance 50 Weight 40.9 kg Intake: IV 50 Other: Voiding Method Bedside Commode Bedside Commode # Voids 1 3 # Bowel Movements 1 - Exam GENERAL: The patient is alert and oriented x3, not in any acute distress. Well developed, well nourished. HEENT: Pupils are round and equally reacting to light. EOMI. No scleral icterus. No conjunctival pallor. Normocephalic, atraumatic. No pharyngeal erythema. No thyromegaly. CARDIOVASCULAR: S1 and S2 present. No murmurs, rubs, or gallops. PULMONARY: Chest is clear to auscultation, no wheezing or crackles. -ABDOMEN: Soft, periumbilical tenderness, slightly distended, normoactive bowel sounds. No palpable organomegaly. NG tube is in a Place MUSCULOSKELETAL: No joint swelling or deformity. EXTREMITIES: No cyanosis, clubbing, or pedal edema. NEUROLOGICAL: Gross neurological examination did not reveal any focal deficits. SKIN: No rashes. no petechiae. - Labs CBC & Chem 7: 11/26/19 06:38 11/29/19 05:45 Labs: Abnormal Lab Results - Last 24 Hours (Table) 11/28/19 11/28/19 11/29/19 Range/Units 11:06 17:06 00:11 Sodium (137-145) mmol/L Creatinine (0.52-1.04) mg/dL POC Glucose (mg/dL) 134 H 115 H 124 H (75-99) mg/dL Calcium (8.4-10.2) mg/dL 11/29/19 11/29/19 Range/Units 05:45 07:12 Sodium 128 L (137-145) mmol/L Creatinine 0.33 L (0.52-1.04) mg/dL POC Glucose (mg/dL) 110 H (75-99) mg/dL Calcium 7.6 L (8.4-10.2) mg/dL Microbiology - Last 24 Hours (Table) 11/24/19 15:45 Blood Culture - Preliminary Blood No Growth after 96 hours 11/24/19 15:47 Blood Culture - Preliminary Blood No Growth after 96 hours Assessment and Plan Assessment: Acute small bowel obstruction, versus ileus, she underwent colonoscopy on 11/27 found near obstruction and splenic flexure with significant mucosal membrane Febrile neutropenia, improved Acute diarrhea along with nausea due to chemotheraphy. Improved Bicytopenia due to chemotherapy. Improved and growth factors is stopped Hyponatremia likely hypoosmolar. Metastatic breast cancer with mets to colon and peritoneum. Currently on chemotherapy 1 week prior to admission Chronic back pain with compression fracture at T7 History of SIADH Hydronephrosis Subclinical hypothyroidism Right carpal tunnel syndrome History of bowel obstruction Anxiety Moderate protein calorie malnutrition Plan: This is a pleasant 69 years old female who presents with small bowel obstruction, febrile neutropenia related to her chemotherapy for breast cancer , resolved and UTI. Patient's vitals closely by infectious disease, surgery and oncology service. Continue with antibiotics as per ID team recommendation. Continue with IV fluids. Continue with TPN. Plan for colonoscopy on 11/27 Labs and medication were reviewed.. Continue same treatment. Continue with sym ptomatic treatment. Resume home medication. Monitor lytes and vitals. DVT and GI prophylaxis. Further recommendations of the clinical course of the patient DVT prophylaxis: Subcutaneous heparin GI Prophylaxis: Ppi Prognosis is guarded
[2019-11-29] MEDS: DOCUSATE 100 MG CAP PO SCH ×2 (08:18→21:37)
[2019-11-29] MEDS: PANTOPRAZOLE 40 MG/10 ML VIAL IVP SCH (08:18)
[2019-11-29] MEDS: SODIUM CHLORIDE TAB 1 GM TAB PO SCH ×3 (08:18→21:38)
[2019-11-29] MEDS: HEPARIN SODIUM,PORCINE 5,000 UNIT/ML 1 ML VIAL SQ SCH ×2 (08:20→21:38)
[2019-11-29] MEDS: ONDANSETRON 4 MG/2 ML VIAL IVP PRN ×2 (08:57→22:02)
[2019-11-29] MEDS: FAT EMULSION 20% 250 ML IV SCH (09:46)
[2019-11-29] MEDS: 1: MVI, ADULT NO.4 WITH VIT K 10 ML, TRACE (CONC-1ML/DOSE) 1 ML, SODIUM CHLORIDE 2.5MEQ/ IV SCH ×10 (09:47→23:55)
[2019-11-29] MEDS: CEFEPIME 2 GM in SODIUM CHLORIDE 0.9% 100 ML IVPB SCH ×2 (09:58→21:37)
--- NOTE | 2019-11-29 10:48 | P.PN ---
Subjective Progress Note Date: 11/29/19 CHIEF COMPLAINT: bowel obstruction HISTORY OF PRESENT ILLNESS: Patient examined at the bedside with Dr. Downey. Patient tolerating clear liquid diet. No vomiting. She is passing flatus. Vital signs stable. Afebrile. PHYSICAL EXAM: VITAL SIGNS: Reviewed GENERAL: Well-developed in no acute distress. HEENT: No sclera icterus. Extraocular movements grossly intact. Moist buccal mucosa. Head is atraumatic, normocephalic. Hears conversational speech. No nasal drainage. NECK: Supple without lymphadenopathy. CHEST: Non-labored respirations and equal bilateral excursions. CARDIOVASCULAR: Regular rate with regular rhythm. Palpable 2+ radial pulses. ABDOMEN: Soft. Nondistended. Incisional hernia noted above umbilicus. MUSCULOSKELETAL: No clubbing or cyanosis. NEUROLOGIC: No focal or lateralizing signs. Cranial nerves II through XII grossly intact. PSYCH: Appropriate affect. Alert and oriented to person, place and time. SKIN: Well perfused. Good skin turgor. ASSESSMENT: 1. Abdominal pain, CT reveals focal thickening along splenic flexure and descending colon 2. Metastatic breast cancer PLAN: -Continue clear liquid diet -Continue PPN. -Patient scheduled for exploratory laparotomy with colostomy creation on , 12/01/[address] Downey -Will consult ostomy resource nurse for possible marking of ostomy site and patient education Nurse practitioner note has been reviewed by physician. Signing provider agrees with the documented findings, assessment, and plan of care. Objective - Vital Signs Vital signs: Vital Signs Temp 97.0 F L 11/29/19 04:50 Pulse 78 11/29/19 04:50 Resp 18 11/29/19 04:50 BP 99/59 11/29/19 04:50 Pulse Ox 97 11/29/19 04:50 Intake & Output 11/28/19 11/29/19 11/29/19 18:59 06:59 18:59 Intake Total 50 Balance 50 Weight 40.9 kg Intake: IV 50 Other: Voiding Method Bedside Commode Bedside Commode # Voids 1 3 1 # Bowel Movements 1 - Labs CBC & Chem 7: 11/26/19 06:38 11/29/19 05:45 Labs: Abnormal Lab Results - Last 24 Hours (Table) 11/28/19 11/28/19 11/29/19 Range/Units 11:06 17:06 00:11 Sodium (137-145) mmol/L Creatinine (0.52-1.04) mg/dL POC Glucose (mg/dL) 134 H 115 H 124 H (75-99) mg/dL Calcium (8.4-10.2) mg/dL 11/29/19 11/29/19 Range/Units 05:45 07:12 Sodium 128 L (137-145) mmol/L Creatinine 0.33 L (0.52-1.04) mg/dL POC Glucose (mg/dL) 110 H (75-99) mg/dL Calcium 7.6 L (8.4-10.2) mg/dL Microbiology - Last 24 Hours (Table) 11/24/19 15:45 Blood Culture - Preliminary Blood No Growth after 96 hours 11/24/19 15:47 Blood Culture - Preliminary Blood No Growth after 96 hours
[2019-11-29 11:10] LABS: Glucose,Whole Blood 113 mg/dL (75-99)
--- NOTE | 2019-11-29 14:47 | CDI ---
Documentation Clarification Form Date: 11/29/2019 02:27:09 PM From: Kavita Jensen RN CCDS Email: [email or web address] Admit Date: 11/17/2019 10:35:00 PM Patient Name: Darlyn Stewart Visit Number: [id number] Discharge Date: ATTENTION: The Clinical Documentation Specialists (CDI) and [facility] Coding Staff appreciate your assistance in clarifying documentation. Please respond to the clarification below the line at the bottom and electronically sign. The CDI & [facility] Coding staff will review the response and follow-up if needed. Please note: Queries are made part of the Legal Health Record. If you have any questions, please contact the author of this message via ITS. Dr. Chavez E Denton Sepsis secondary to urinary tract infection was documented in the H&P 11/17 through progress note 11/26. History/Risk Factors: 69-year-old female presents to the ED with as a transfer from [facility] for persistent diarrhea that has been going on for a week. Medical History Metastatic breast cancer with metastasis to peritoneal area and colon, SIADH, Clinical Indicators: 11/16 VSS: 115/85 71 98.6 16 100% ra 11/17 VSS: 109/72 83 16 199% RA 11/16 Labs: Wbc 0.9; Hgb 10.6; Na 126; 11/16 Urine Culture: MRSA Treatment: Antibiotics: 11/16 Cefepime Ivpb; 11/17 Doxycycline PO BID, d/cd 11/18; 11/19 Flagyl Ivpb Iv Fluids: 11/16 0.9ns 500cc/bolus; 11/18 0.9ns 500cc/bolus followed by 50cchr Please clarify if the Sepsis was: Present/active this admission Treated and resolved this admission Ruled out Other, please specify Clinically unable to determine (Last Query Form Revision: January 2019) no sepsis MTDD
--- NOTE | 2019-11-29 16:34 | PN ---
PROGRESS NOTE DATE OF SERVICE: 11/29/2019 REASON FOR FOLLOWUP: Febrile neutropenia with possible abdominal infection. INTERVAL HISTORY: The patient has been afebrile. The patient is breathing comfortably. The patient denies having any chest pain or shortness of breath or cough. Still some abdominal discomfort, nausea. No vomiting. No diarrhea. PHYSICAL EXAMINATION: Blood pressure 101/66, pulse of 83, temperature 98. She is 95% on room air. General description is an elderly female lying in bed in no distress. RESPIRATORY SYSTEM: Unlabored breathing. Clear to auscultation anteriorly. HEART: S1, S2. Regular rate and rhythm. ABDOMEN: Soft. No tenderness. LABS: Creatinine 0.63. Culture repeat has been negative. DIAGNOSTIC IMPRESSION AND PLAN: Patient admitted to hospital with febrile neutropenia; source abdominal in this patient who did have significant distention of the cecum and bowel obstruction in this patient who is status post colonoscopy with evidence of an obstructive lesion for possible diverting colostomy. Patient to continue with cefepime and Flagyl and monitor clinical course closely. Continue with supportive care. MMODL / IJN: [id number] /
[2019-11-29 17:01] LABS: Glucose,Whole Blood 115 mg/dL (75-99)
--- NOTE | 2019-11-29 18:40 | P.PN ---
Subjective Progress Note Date: 11/29/19 Principal diagnosis: Hyponatremia, neutropenia In follow-up today patient is tolerating liquids, she has had a BM, no specific complaints. Pain is controlled. No bleeding to report. Objective - Vital Signs Vital signs: Vital Signs Temp 98 F 11/29/19 12:10 Pulse 83 11/29/19 12:10 Resp 16 11/29/19 12:10 BP 101/66 11/29/19 12:10 Pulse Ox 95 11/29/19 12:10 Intake & Output 11/28/19 11/29/19 11/29/19 18:59 06:59 18:59 Intake Total 50 Balance 50 Weight 40.9 kg Intake: IV 50 Other: Voiding Method Bedside Commode Bedside Commode Bedside Commode # Voids 1 3 1 # Bowel Movements 1 - Exam WD, thin, frail, NAD, A&Ox4, resp even and unlabored, no swelling - Labs CBC & Chem 7: 11/26/19 06:38 11/29/19 05:45 Labs: Abnormal Lab Results - Last 24 Hours (Table) 11/29/19 11/29/19 11/29/19 Range/Units 00:11 05:45 07:12 Sodium 128 L (137-145) mmol/L Creatinine 0.33 L (0.52-1.04) mg/dL POC Glucose (mg/dL) 124 H 110 H (75-99) mg/dL Calcium 7.6 L (8.4-10.2) mg/dL 11/29/19 11/29/19 Range/Units 11:08 16:59 Sodium (137-145) mmol/L Creatinine (0.52-1.04) mg/dL POC Glucose (mg/dL) 113 H 115 H (75-99) mg/dL Calcium (8.4-10.2) mg/dL Microbiology - Last 24 Hours (Table) 11/24/19 15:45 Blood Culture - Preliminary Blood No Growth after 120 hours 11/24/19 15:47 Blood Culture - Preliminary Blood No Growth after 120 hours Assessment and Plan (1) Febrile neutropenia Narrative/Plan: Resolved, no recent fever. Patient treated for MRSA UTI Current Visit: Yes Status: Acute Priority: High Code(s): D70.9 - NEUTROPENIA, UNSPECIFIED; R50.81 - FEVER PRESENTING WITH CONDITIONS CLASSIFIED ELSEWHERE SNOMED Code(s): 403328090 (2) Abnormal abdominal CT scan Current Visit: Yes Status: Acute Priority: High Code(s): R93.5 - ABN FI NDINGS ON DX IMAGING OF ABD REGIONS, INC RETROPERITON SNOMED Code(s): 156 [id number] (3) Metastatic breast cancer Narrative/Plan: 11/29/19 discussion-Patient is status post first cycle of Taxotere, single agent. Patient asked me how many cycles before it would be known if the treatment was going to be successful. Typically it takes 3-4 cycles of treatment before it can be known if it's going to be active against cancer. Duration of effectiveness, at this later line of therapy, is very unpredictable. Patient states discussed her case with her Doctors and she has decided on an ostomy. She is also going to have hernia repair at the same time. Surgery sched tentatively for Thur. Current Visit: Yes Status: Chronic Priority: High Code(s): C50.919 - MALIGNANT NEOPLASM OF UNSP SITE OF UNSPECIFIED FEMALE BREAST SNOMED Code(s): 452226536
[2019-11-29] MEDS: ZOLPIDEM 5 MG TAB PO SCH (21:38)
--- NOTE | 2019-11-29 23:01 | P.CONS ---
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 Patient had been denying any abdominal discomfort was suffering from loose watery bowel movements and nausea. He is currently receiving chemotherapy for treatment of her metastatic breast cancer. Patient had a computed tomography scan of the abdomen which showed colonic wall thickening felt to be related to her metastases with suspected splenic flexure mass. She was taken for colonoscopy with the surgical service with findings of diverticulosis, external hemorrhoids and an almost completely obstructing splenic flexure mass. GI was consulted for possible stent placement. Review of Systems REVIEW OF SYSTEMS: CONSTITUTIONAL: Denies any fevers, chills, but she is reporting fatigue. CARDIOVASCULAR: Denies any chest pain, palpitations high or low blood pressures RESPIRATORY: Denies any shortness of breath at rest but some shortness of breath on exertion, hemoptysis or cough. GENITOURINARY: No dysuria or hematuria. MUSCULOSKELETAL: No weakness reported. SKIN: Denies any new rashes or lesions, jaundice or pallor. PSYCHIATRIC: Denies any depression but she does have a history of anxiety. NEUROLOGY: Denies headache, denies any new focal deficits. EARS/NOSE/THROAT: No recent hearing change, congestion, nasal discharge or sore throat. EYES: No pain in eyes, discharge or change in vision. GASTROINTESTINAL: As per HPI. Past Medical History Past Medical History: Cancer Additional Past Medical History / Comment(s): Metastatic lt breast cancer with metastases to peritoneal area. SIADH, Hydronephrosis, subclinical hypothyrodisim, protein calorie malnutrition,carpel tunnel right hand with sx. bilateral cataracts with sx, bowel obstruction History of Any Multi-Drug Resistant Organisms: MRSA Year Discovered:: 11/18/19 MDRO Source:: MRSA URINE Past Surgical History: Appendectomy, Cholecystectomy, Hysterectomy Additional Past Surgical History / Comment(s): Lumpectomy involving the left breast, previous history of abdominal surgery for small bowel obstruction x2, right uretheral stent with removal, removal was: 6-8 weeks ago, left subclavian stent secondary to stenosis Past Anesthesia/Blood Transfusion Reactions: No Reported Reaction Past Psychological History: Anxiety Smoking Status: Never smoker Past Alcohol Use History: None Reported Past Drug Use History: None Reported - Past Family History Father Family Medical History: Cancer Additional Family Medical History / Comment(s): lung cancer Mother Family Medical History: Cancer Additional Family Medical History / Comment(s): lung cancer Medications and Allergies Home Medications Medication Instructions Recorded Confirmed Type ALPRAZolam [Xanax] 0.5 mg PO HS PRN 01/02/19 11/18/19 History Zolpidem Tartrate [Ambien Cr] 12.5 mg PO HS #3 tab 01/27/19 11/18/19 Rx fentaNYL 75MCG/HR PATCH [Duragesic 75 mcg TRANSDERM Q72H 3 Days #1 05/09/19 11/18/19 Rx 75MCG/HR] patch Albuterol Inhaler [Ventolin Hfa 2 puff INHALATION RT-Q6H PRN 11/18/19 11/18/19 History Inhaler] Morphine Sulfate 15 mg PO Q48H PRN 11/18/19 11/18/19 History Naproxen Sodium [Aleve] 220 mg PO DAILY PRN 11/18/19 11/18/19 History Ondansetron HCl [Zofran] 8 mg PO Q8H PRN 11/18/19 11/18/19 History oxyCODONE HCL [Oxaydo] 5 mg PO Q48H PRN 11/18/19 11/18/19 History Allergies Allergy/AdvReac Type Severity Reaction Status Date / Time No Known Allergies Allergy Verified 11/18/19 11:07 Physical Exam Vitals: Vital Signs Temp Pulse Resp BP Pulse Ox 11/28/19 11:19 98.9 F 90 16 111/74 97 11/28/19 05:00 98.5 F 86 16 127/77 98 11/28/19 00:00 16 11/27/19 21:00 98.5 F 53 L 16 115/79 94 L Intake and Output 11/27/19 11/28/19 11/28/19 22:59 06:59 14:59 Intake Total 240 50 Balance 240 50 Intake: IV 50 Oral 240 Other: Voiding Method Bedside Commode Bedside Commode # Voids 1 # Bowel Movements 1 Weight 40.9 kg On physical examination, patient appears comfortable in no apparent distress. HEAD: Normocephalic, atraumatic. EYES: No scleral icterus. No conjunctival injection. MOUTH: No lesions, tongue midline. NECK: Trachea midline, no gross abnormalities. CHEST: Clear to auscultation with no wheezing or rhonchi appreciated. HEART: Regular rate and rhythm. ABDOMEN: Soft, mildly tender to deep palpation worse in the left abdomen. Bowel sounds are positive. No organomegaly. No guarding or rigidity. EXTREMITIES: No pedal edema. SKIN: No rashes, no jaundice. NEUROLOGIC: Alert and oriented x3. No focal deficits. Results CBC & Chem 7: 11/26/19 06:38 11/29/19 05:45 Labs: Abnormal Lab Results - Last 24 Hours (Table) 11/27/19 11/27/19 11/28/19 Range/Units 16:47 23:34 05:26 Sodium (137-145) mmol/L Chloride (98-107) mmol/L Creatinine (0.52-1.04) mg/dL Glucose (74-99) mg/dL POC Glucose (mg/dL) 103 H 128 H 125 H (75-99) mg/dL Calcium (8.4-10.2) mg/dL 11/28/19 11/28/19 Range/Units 06:10 11:06 Sodium 128 L (137-145) mmol/L Chloride 97 L (98-107) mmol/L Creatinine 0.30 L (0.52-1.04) mg/dL Glucose 109 H (74-99) mg/dL POC Glucose (mg/dL) 134 H (75-99) mg/dL Calcium 7.6 L (8.4-10.2) mg/dL Microbiology - Last 24 Hours (Table) 11/24/19 15:45 Blood Culture - Preliminary Blood No Growth after 72 hours 11/24/19 15:47 Blood Culture - Preliminary Blood No Growth after [address] scan - abdomen: report reviewed (Small bowel and cecal dilation noted on computed tomography scan abdomen with suspected splenic flexure mass.) Assessment and Plan (1) Abnormal abdominal CT scan Narrative/Plan: 69-year-old female with multiple medical comorbidities including metastatic breast cancer who was transferred from an outside facility where she presented for nausea and loose bowel movements. Computed tomography scan performed showed cecal dilation and small bowel dilation with concern for a splenic flexure mass. The patient was taken for colonoscopy with the surgical service with findings of a near obstructing splenic flexure mass which was biopsied as well as diverticulosis and external hemorrhoids. Current Visit: Yes Status: Acute Priority: High Code(s): R93.5 - ABN FINDINGS ON DX IMAGING OF ABD REGIONS, INC RETROPERITON SNOMED Code(s): 12815934082316936 (2) Metastatic breast cancer Current Visit: Yes Status: Chronic Priority: High Code(s): C50.919 - MALIGNANT NEOPLASM OF UNSP SITE OF UNSPECIFIED FEMALE BREAST SNOMED Code(s): 957071468 Plan: Supportive care Continue clear liquid diet Extensive discussion with the patient regarding options of colonic stent versus exploratory laparotomy with large bowel resection and ostomy formation and at this time the patient would like to proceed with surgical intervention, if however she decides to undergo evaluation for colonic stent placement would recommend transfer to tertiary facility for evaluation by advanced endoscopy service Thank you for allowing us to participate in the care of the patient, the GI service will stand by, please call us back with any questions or concerns
[2019-11-29] MEDS: ALPRAZolam 0.5 MG TAB PO PRN (23:03)
[2019-11-30] MEDS: metroNIDAZOLE-NS PMX 500 MG in SALINE 1 100ML.BAG IVPB SCH ×3 (00:13→16:22)
[2019-11-30 00:15] LABS: Glucose,Whole Blood 127 mg/dL (75-99)
[2019-11-30] MEDS: INSULIN ASPART (NovoLOG) 100 UNIT/ML VIAL SQ SCH ×4 (00:32→18:03)
[2019-11-30] MEDS: 1: MVI, ADULT NO.4 WITH VIT K 10 ML, TRACE (CONC-1ML/DOSE) 1 ML, SODIUM CHLORIDE 2.5MEQ/ IV SCH ×10 (02:11→20:37)
[2019-11-30] MEDS: HYDROmorphone 1 MG/ML 1 ML SYRINGE IVP PRN ×7 (02:25→22:22)
[2019-11-30 06:21] LABS: Glucose,Whole Blood 103 mg/dL (75-99)
[2019-11-30 06:35] LABS: African American GFR (CKD) >90 (>60 ml/min/1.73 sqM); Anion Gap 1 mmol/L; Blood Urea Nitrogen 11 mg/dL (7-17); Calcium 7.7 mg/dL (8.4-10.2); Carbon Dioxide 28 mmol/L (22-30); Chloride 101 mmol/L (98-107); Glucose 88 mg/dL (74-99); Non-African American GFR(CKD) >90 (>60 ml/min/1.73 sqM); Phosphorus 3.5 mg/dL (2.5-4.5); Potassium 3.8 mmol/L (3.5-5.1); Sodium 130 mmol/L (137-145)
[2019-11-30 06:56] LABS: Glucose,Whole Blood 112 mg/dL (75-99)
--- NOTE | 2019-11-30 08:17 | P.PN ---
Subjective From a course: Patient is 69-year-old female with a known history of metastatic left breast cancer with mets to colon, SIADH, subclinical hypothyroidism, moderate protein calorie moderation, anxiety initially presented to ER at [facility] with complaints of persistent diarrhea and nausea. Denies any episodes of vomiting. Denies any severe abdominal discomfort. Patient does have metastatic lesions in the colon. Patient is currently receiving chemotherapy last time about 1 week ago with a Mediport. Initially denied any complaints of fever or chills. No complaints of chest pain. No cough or sputum production. No leg swelling. Denied any dysuria or hematuria. Patient was found to be neutropenic and hyponatremia with sodium level 126. CT of the abdomen pelvis showed colonic wall thickening felt to be related to her metastasis. There was a small amount of ascites noted with a question of peritoneal implants, there was small urothelial thickening and questionable for possible urinary tract infection. And small bilateral pleural effusions were noted. Patient became febrile this afternoon with T-max of 101.3 Laboratory data showed WBC of 0.9, hemoglobin 10.6 and platelets 255 Sodium level is 126 Chloride 97, bicarb is 21 BUN 12 and creatinine 0.43 Calcium 8.0 Albumin 3.0 Coronavirus not detected. Urinalysis showed cloudy, nitrite positive and large leukocyte esterase with WBC 7 11/19/2019 Patient is currently lying in the bed, feeling very weak. Patient was febrile yesterday and septic work-up was done. Patient was found to have urinary tract infection and also due to neutropenia patient was started broad-spectrum antibiotics and ID was consulted. Currently patient is on vancomycin and cefepime. Afebrile now. Potassium is 2.9 which is being replaced and magnesium as well. CT of the abdomen pelvis was ordered due to complaints of abdominal pain mainly in the lower region. No complaints of diarrhea now. No headache or dizziness. No chest pain or shortness of breath. 11/20/2019 Patient is currently lying in the bed comfortably. Afebrile overnight. Currently being continued on broad-spectrum antibiotics in the form of vancomycin and cefepime. ID is following. Urine culture is pending. Otherwise patient denied any chest pain or shortness breath. Patient still having abdominal discomfort and CT of the abdomen pelvis was ordered yesterday which showed small bowel dilatation up to 3 cm with air-fluid levels. Small bowel obstruction suggested. Patient was placed on NG tube and diet change to nothing by mouth. General surgery was consulted. Patient will be continued on IV hydration. Subjective, this is the first day I take care of the patient 11/21/2019 This is a pleasant lady who was admitted on 11/16 for diarrhea, she came from [facility]. She found to have febrile neutropenia, bowel obstruction and UTI. Patient is been evaluated by several consults INCLUDING infectious disease, surgery and oncology. She has history of metastatic left breast cancer to bone on possible to: On peritoneal she got chemotherapy about one week earlier. She's been treated currently on cefepime and IV Flagyl, also she is on normal saline at 90 mL/h. She has increased tumor markers of CAD 15-30 into Efren and CA 27-29, CT of the abdomen showing bowel obstruction. And urine culture came back positive for staph aureus, patient received therapy before with IV vancomycin, we'll going to check with ID team if she is going to need more therapy. She feels generally weak, she still nothing by mouth, with no vomiting, NG tube is in place with little or no secretions. She has. Umbilical abdominal pain and tenderness, she was passing gases and have bowel movement the night before yesterday as per patient Blood pressure on the low-normal signed 94/69 and reversal vitals are stable. WBC went up to 19.4 K, sodium 1:30, creatinine 0.3. Magnesium 1.5 11/22/2019 Patient is alert and awake. She still complaining from abdominal pain and tenderness, she is tolerating only a little of her liquid diet although there is no vomiting and she has normal bowel movement and passing only gases. Her abdomen looks distended and she has tenderness in the upper part of the abdomen Patient feels weak has had difficulty getting up and moving around Blood pressure low-normal 99/67, still have leukocytosis of 19.4 K, hemoglobin 9.4. Sodium 129, creatinine normal, potassium of 3.3 Surgery team on the case and the recommended colonoscopy at certain point., Patient informed and she agrees with this recommendation.. Selective for and is negative. Low TIBC suggestive of anemia of chronic disease. Patient is already on 3 antibiotics with cefepime, Flagyl and IV vancomycin for her intra-abdominal infection and UTI.. She still in normal saline at 90 mL/h Last for physical therapy evaluation 11/23/2019 Patient management comfortable not in distress, she did not eat follow-up of diabetes and day, she is trying to eat more today, she still on liquid diet however her abdominal pain around the periumbilical since same with tenderness but no rebound tenderness. No nausea vomiting however last night she has loose bowel movement as well as she is passing gas. She stent in bed most of the time and physical therapy is consulted. No urinary symptoms like no dysuria or change in frequency, staff in the urine is colonization and no need for vancomycin which was stopped by ID team Blood pressure is stable at 105/72, fever subsided. The loose is coming down to 15.1 K, on sodium is up to 131. 11/24/2019 The patient sitting in chair, not in distress. Patient denies chest pain or dyspnea. However she is not eating well while she is on liquid diet, she still have some abdominal pain, no bowel movement or passing gases yesterday. Patient was started on bowel regiment by surgery team Surgical team are planning for patient to go for colonoscopy on Thursday11/25/2019 Patient is lying in bed comfortable not in distress. She is not eating, she got suppository followed by loose bowel movement, no vomiting abdominal pain is controlled. She is started on TPN and she is tolerating that well Left upper extremity ultrasound is negative for DVT Planned for coloscopy on Thursday11/26/2019 Patient is clinically similar to yesterday, she is not eating while she is on TPN. No vomiting abdominal pain is controlled she has no bowel movement despite of several bowel preparations. CBC, BMP, magnesium and phosphorus are unremarkable We will keep to follow up 11/27/2019 pt is awake, no distress, she is being prepared with bowel regiments and golytly for colonoscopy tomorrow and she is having several bowel movements , no wor sening abd pain , not eating much and she is on TPN. she has swelling in her extremites both upper and lower and normal saline was discontinued and give one dose of lasix vitals are stable, labs are reviewed ,her sodium today is 129, creatinine is normal at 0.3 she is on cefepime and flagyl as well 11/28/2019 Patient is awake and alert, no other new complaint. Patient underwent colonoscopy today and found to have to splenic flexure with thickened mucosal wall and near obstruction, biopsy was taken and results are pending Recommended to continue with clear liquid diet. However patient does not have appetite and she still on TPN. Abdominal looks soft. No nausea vomiting. Vital signs stable and sodium is 128, we'll sodium chloride tablets. WBCs back to normal today at 10.2 K. Hemoglobin is 8.8. Patient continue on cefepime and Flagyl. IV fluids were stopped 11/29/2019 Patient still feeling generally weak however she is awake and alert. No distress. She was placed on clear liquid diet after the colonoscopy done yesterday showing narrowing of the splenic flexure with mucosal thickening. However patient is consuming a lot of her diet because of low appetite and nausea. Continue with Zofran. Abdominal pain is minimal. She still has bilateral leg edema Vitals are stable.Sodium is 128, creatinine normal, sugar control. She continue on cefepime and IV Flagyl. Normal saline was discontinued and she is on TPN.: Biopsy is pending. Patient has been told she will need a second procedure or surgery, we'll follow recommendation by the surgical team 11/30/2019 Patient is awake, comfortable not in distress. No much abdominal pain today, her leg swelling is coming down. Vitals are stable. Sodium improved to 130 Patient is planned for exploratory laparotomy with creation of colostomy tomorrow. Patient is aware Patient at some risk from the surgery however there is no absolute contraindication Review of systems CONSTITUTIONAL: No fever, no malaise, no fatigue. HEENT: No recent visual problems or hearing problems. Denied any sore throat. CARDIOVASCULAR: No orthopnea, PND, no palpitations, no syncope. PULMONARY: No shortness of breath, no cough, no hemoptysis. GASTROINTESTINAL: No diarrhea, no nausea, no vomiting, no abdominal pain. Normoactive bowel sounds. NEUROLOGICAL: No headaches, no weakness, no numbness. HEMATOLOGICAL: Denies any bleeding or petechiae. GENITOURINARY: Denies any burning micturition, frequency, or urgency. MUSCULOSKELETAL/RHEUMATOLOGICAL: Denies any joint pain, swelling, or any muscle pain. ENDOCRINE: Denies any polyuria or polydipsia. Active Medications Generic Name Dose Route Start Last Admin Trade Name Freq PRN Reason Stop Dose Admin Acetaminophen 650 mg 11/17/19 22:33 11/18/19 16:35 Tylenol Tab PO 650 mg Q6HR PRN Administration Mild Pain or Fever > 100.5 Albuterol Sulfate 2 mg 11/18/19 00:34 Ventolin Nebulized INHALATION Q6HR PRN Shortness Of Breath Or Wheezing Alprazolam 0.5 mg 11/17/19 23:32 11/29/19 23:03 Xanax PO 0.5 mg TID PRN Administration Anxiety Docusate Sodium 100 mg 11/24/19 21:00 11/29/19 21:37 Colace PO 100 mg BID TREVOR Administration Fentanyl 1 patch 11/19/19 09:00 11/28/19 08:50 Duragesic 75mcg/Hr Patch TRANSDERM 1 patch Q72H TREVOR Administration Heparin Sodium (Porcine) 5,000 unit 11/21/19 09:00 11/29/19 21:38 Heparin SQ 5,000 unit Q12HR TREVOR Administration Hydromorphone HCl 1 mg 11/20/19 18:06 11/30/19 06:15 Dilaudid IVP 1 mg Q3HR PRN Administration Severe Pain Metronidazole 500 mg/ IV 100 mls @ 100 mls/hr 11/23/19 09:00 11/30/19 00:13 Solution IVPB 100 mls/hr Q8H TREVOR Administration Fat Emulsion Intravenous 250 mls @ 20.833 mls/hr 11/24/19 14:30 11/29/19 09:46 Lipids 20% IV 20.833 mls/hr DAILY TREVOR Administration Cefepime HCl 2 gm/ Sodium 100 mls @ 200 mls/hr 11/28/19 21:00 11/29/19 21:37 Chloride IVPB 200 mls/hr Q12HR TREVOR Administration Parenteral Vitamin Supplement 1,028 mls @ 60 mls/hr 11/30/19 02:00 11/30/19 02:11 10 ml/ Chromium/Copper/ IV 60 mls/hr Manganese/Seleni/Zn 1 ml/ .BY DURATION TREVOR Administration Sodium Chloride 40 meq/ Magnesium Sulfate 0.5 gm/ Amino Ac/Electrol/Dextrose/ Calcium Sodium Chloride 40 meq/ 1,017 mls @ 60 mls/hr 11/30/19 02:00 Magnesium Sulfate 0.5 gm/ IV Amino Ac/Electrol/Dextrose/ .BY DURATION TREVOR Calcium Insulin Aspart 0 unit 11/24/19 18:30 11/30/19 06:21 Novolog SQ Not Given Q6HR [facility] Protocol Miscellaneous Information 1 each 11/19/19 14:21 Potassium Per Protocol MISCELLANE DAILY PRN Per Protocol Protocol Miscellaneous Information 1 each 11/21/19 20:01 Magnesium Per Protocol MISCELLANE DAILY PRN Per Protocol Protocol Naloxone HCl 0.2 mg 11/17/19 22:33 Narcan IV Q2M PRN Opioid Reversal Ondansetron HCl 4 mg 11/17/19 22:33 11/29/19 22:02 Zofran IVP 4 mg Q8HR PRN Administration Nausea And Vomiting Pantoprazole Sodium 40 mg 11/21/19 09:00 11/29/19 08:18 Protonix IVP 40 mg DAILY TREVOR Administration Sodium Chloride 1 gm 11/28/19 16:00 11/29/19 21:38 Sodium Chloride Tab PO 1 gm TID TREVOR Administration Zolpidem Tartrate 5 mg 11/18/19 21:00 11/29/19 21:38 Ambien PO 5 mg HS TREVOR Administration Objective - Vital Signs Vital signs: Vital Signs Temp 96.8 F L 11/30/19 04:50 Pulse 74 11/30/19 04:50 Resp 18 11/30/19 04:50 BP 93/58 11/30/19 04:50 Pulse Ox 94 L 11/30/19 04:50 Intake & Output 11/29/19 11/30/19 11/30/19 18:59 06:59 18:59 Other: Voiding Method Bedside Commode Bedside Commode # Voids 1 - Exam GENERAL: The patient is alert and oriented x3, not in any acute distress. Well developed, well nourished. HEENT: Pupils are round and equally reacting to light. EOMI. No scleral icterus. No conjunctival pallor. Normocephalic, atraumatic. No pharyngeal erythema. No thyromegaly. CARDIOVASCULAR: S1 and S2 present. No murmurs, rubs, or gallops. PULMONARY: Chest is clear to auscultation, no wheezing or crackles. -ABDOMEN: Soft, periumbilical tenderness, slightly distended, normoactive bowel sounds. No palpable organomegaly. NG tube is in a Place MUSCULOSKELETAL: No joint swelling or deformity. EXTREMITIES: No cyanosis, clubbing, or pedal edema. NEUROLOGICAL: Gross neurological examination did not reveal any focal deficits. SKIN: No rashes. no petechiae. - Labs CBC & Chem 7: 11/26/19 06:38 11/30/19 06:05 Labs: Abnormal Lab Results - Last 24 Hours (Table) 11/29/19 11/29/19 11/30/19 Range/Units 11:08 16:59 00:13 Sodium (137-145) mmol/L Creatinine (0.52-1.04) mg/dL POC Glucose (mg/dL) 113 H 115 H 127 H (75-99) mg/dL Calcium (8.4-10.2) mg/dL 11/30/19 11/30/19 11/30/19 Range/Units 06:05 06:19 06:54 Sodium 130 L (137-145) mmol/L Creatinine 0.32 L (0.52-1.04) mg/dL POC Glucose (mg/dL) 103 H 112 H (75-99) mg/dL Calcium 7.7 L (8.4-10.2) mg/dL Microbiology - Last 24 Hours (Table) 11/24/19 15:45 Blood Culture - Preliminary Blood No Growth after 120 hours 11/24/19 15:47 Blood Culture - Preliminary Blood No Growth after 120 hours Assessment and Plan Assessment: Acute small bowel obstruction, versus ileus, she underwent colonoscopy on 11/27 found near obstruction and splenic flexure with significant mucosal membrane. Patient is going for colostomy creation on 11/30 Preop evaluation Febrile neutropenia, improved Acute diarrhea along with nausea due to chemotheraphy. Improved Bicytopenia due to chemotherapy. Improved and growth factors is stopped Hyponatremia likely hypoosmolar. Metastatic breast cancer with mets to colon and peritoneum. Currently on chemotherapy 1 week prior to admission Chronic back pain with compression fracture at T7 History of SIADH Hydronephrosis Subclinical hypothyroidism Right carpal tunnel syndrome History of bowel obstruction Anxiety Moderate protein calorie malnutrition Plan: This is a pleasant 69 years old female who presents with small bowel obstruction, febrile neutropenia related to her chemotherapy for breast cancer , resolved and UTI. Patient's vitals closely by infectious disease, surgery and oncology service. Continue with antibiotics as per ID team recommendation. Continue with IV fluids. Continue with TPN. Plan for a possible diverting colostomy by surgical team. Patient is at higher risk but no contraindication for the surgery Labs and medication were reviewed.. Continue same treatment. Continue with symptomatic treatment. Resume home medication. Monitor lytes and vitals. DVT and GI prophylaxis. Further recommendations of the clinical course of the patient DVT prophylaxis: Subcutaneous heparin GI Prophylaxis: Ppi Prognosis is guarded
[2019-11-30] MEDS: PANTOPRAZOLE 40 MG/10 ML VIAL IVP SCH (09:52)
[2019-11-30] MEDS: HEPARIN SODIUM,PORCINE 5,000 UNIT/ML 1 ML VIAL SQ SCH ×2 (09:52→21:32)
[2019-11-30] MEDS: DOCUSATE 100 MG CAP PO SCH ×2 (09:52→21:32)
[2019-11-30] MEDS: ALPRAZolam 0.5 MG TAB PO PRN ×2 (10:01→23:37)
[2019-11-30] MEDS: SODIUM CHLORIDE TAB 1 GM TAB PO SCH ×3 (10:01→21:32)
[2019-11-30] MEDS: ONDANSETRON 4 MG/2 ML VIAL IVP PRN ×3 (10:08→21:33)
[2019-11-30] MEDS: FAT EMULSION 20% 250 ML IV SCH (10:09)
[2019-11-30 11:13] LABS: Glucose,Whole Blood 125 mg/dL (75-99)
[2019-11-30] MEDS: CEFEPIME 2 GM in SODIUM CHLORIDE 0.9% 100 ML IVPB SCH ×2 (11:58→21:32)
--- NOTE | 2019-11-30 12:04 | P.PN ---
Subjective Progress Note Date: 11/30/19 CHIEF COMPLAINT: bowel obstruction HISTORY OF PRESENT ILLNESS: Patient examined at the bedside. She denies abdominal pain. Patient tolerating clear liquid diet. No nausea or vomiting. She is passing flatus. BM yesterday. Vital signs stable. Afebrile. PHYSICAL EXAM: VITAL SIGNS: Reviewed GENERAL: Well-developed in no acute distress. HEENT: No sclera icterus. Extraocular movements grossly intact. Moist buccal mucosa. Head is atraumatic, normocephalic. Hears conversational speech. No nasal drainage. NECK: Supple without lymphadenopathy. CHEST: Non-labored respirations and equal bilateral excursions. CARDIOVASCULAR: Regular rate with regular rhythm. Palpable 2+ radial pulses. ABDOMEN: Soft. Nondistended. Incisional hernia noted above umbilicus. MUSCULOSKELETAL: No clubbing or cyanosis. NEUROLOGIC: No focal or lateralizing signs. Cranial nerves II through XII grossly intact. PSYCH: Appropriate affect. Alert and oriented to person, place and time. SKIN: Well perfused. Good skin turgor. ASSESSMENT: 1. Abdominal pain, CT reveals focal thickening along splenic flexure and descending colon 2. Metastatic breast cancer PLAN: -Continue clear liquid diet. NPO at midnight -Continue PPN. -Patient scheduled for exploratory laparotomy with colostomy creation on , 12/01/[address] Downey -Dr. Downey will re-evaluate patient this afternoon. Patient has a lot of questions regarding surgery and would like to speak with Dr. Downey Nurse practitioner note has been reviewed by physician. Signing provider agrees with the documented findings, assessment, and plan of care. Objective - Vital Signs Vital signs: Vital Signs Temp 98.3 F 11/30/19 11:32 Pulse 84 11/30/19 11:32 Resp 17 11/30/19 11:32 BP 95/58 11/30/19 11:32 Pulse Ox 95 11/30/19 11:32 Intake & Output 11/29/19 11/30/19 11/30/19 18:59 06:59 18:59 Weight 40.9 kg Other: Voiding Method Bedside Commode Bedside Commode # Voids 1 - Labs CBC & Chem 7: 11/26/19 06:38 11/30/19 06:05 Labs: Abnormal Lab Results - Last 24 Hours (Table) 11/29/19 11/30/19 11/30/19 Range/Units 16:59 00:13 06:05 Sodium 130 L (137-145) mmol/L Creatinine 0.32 L (0.52-1.04) mg/dL POC Glucose (mg/dL) 115 H 127 H (75-99) mg/dL Calcium 7.7 L (8.4-10.2) mg/dL 11/30/19 11/30/19 11/30/19 Range/Units 06:19 06:54 11:12 Sodium (137-145) mmol/L Creatinine (0.52-1.04) mg/dL POC Glucose (mg/dL) 103 H 112 H 125 H (75-99) mg/dL Calcium (8.4-10.2) mg/dL Microbiology - Last 24 Hours (Table) 11/24/19 15:45 Blood Culture - Preliminary Blood No Growth after 120 hours 11/24/19 15:47 Blood Culture - Preliminary Blood No Growth after 120 hours
[2019-11-30 17:11] LABS: Glucose,Whole Blood 124 mg/dL (75-99)
--- NOTE | 2019-11-30 18:44 | P.PN ---
Progress Note - Text Progress Note Date: 11/30/19 Patient seen and evaluated. She is multiple questions regarding postoperative recovery. Patient want to consider options including avoiding surgery. Risks also include complete bowel obstruction which may lead to bowel rupture without surgical intervention. Also hospice also reviewed. Patient wished to proceed with surgery with colostomy creation. Also will arrange for rehab upon discharge.
[2019-11-30 20:28] LABS: Glucose,Whole Blood 109 mg/dL (75-99)
[2019-11-30] MEDS: ZOLPIDEM 5 MG TAB PO SCH (22:22)
--- NOTE | 2019-11-30 23:25 | PN ---
PROGRESS NOTE DATE OF SERVICE: 11/30/2019 REASON FOR FOLLOWUP: Abdominal infection. INTERVAL HISTORY: The patient is currently afebrile. The patient is breathing comfortably. Denies having any chest pain. No shortness of breath or cough. Some abdominal discomfort. Nausea, but no vomiting. No diarrhea. PHYSICAL EXAMINATION: Blood pressure 107/61 with a pulse of 78, temperature 96.7. She is 98% on room air. General description is an elderly female lying in bed in no distress. RESPIRATORY SYSTEM: Unlabored breathing, clear to auscultation anteriorly. HEART: S1, S2. Regular rate and rhythm. ABDOMEN: Soft, no tenderness. LABS: No new labs have been obtained today. Blood culture has been negative. DIAGNOSTIC IMPRESSION AND PLAN: Patient with febrile neutropenia in this patient with abdominal source with significant dilatation of the cecum and small bowel obstruction, status colonoscopy with evidence of obstructive tumor for possible colostomy tomorrow. On cefepime and Flagyl to continue and monitor clinical course closely. MMODL / IJN: [id number] /
[2019-12-01 00:20] LABS: Glucose,Whole Blood 130 mg/dL (75-99)
[2019-12-01] MEDS: metroNIDAZOLE-NS PMX 500 MG in SALINE 1 100ML.BAG IVPB SCH ×3 (00:22→22:17)
[2019-12-01] MEDS: INSULIN ASPART (NovoLOG) 100 UNIT/ML VIAL SQ SCH ×4 (00:22→22:16)
[2019-12-01] MEDS: HYDROmorphone 1 MG/ML 1 ML SYRINGE IVP PRN ×4 (03:18→22:04)
[2019-12-01 05:50] LABS: Glucose,Whole Blood 99 mg/dL (75-99)
[2019-12-01 06:47] LABS: African American GFR (CKD) >90 (>60 ml/min/1.73 sqM); Albumin 2.1 g/dL (3.5-5.0); Anion Gap 1 mmol/L; Blood Urea Nitrogen 10 mg/dL (7-17); Calcium 7.8 mg/dL (8.4-10.2); Carbon Dioxide 28 mmol/L (22-30); Chloride 101 mmol/L (98-107); Glucose 92 mg/dL (74-99); Magnesium 1.8 mg/dL (1.6-2.3); Non-African American GFR(CKD) >90 (>60 ml/min/1.73 sqM); Phosphorus 3.4 mg/dL (2.5-4.5); Potassium 3.8 mmol/L (3.5-5.1); Sodium 130 mmol/L (137-145)
[2019-12-01] MEDS: HEPARIN SODIUM,PORCINE 5,000 UNIT/ML 1 ML VIAL SQ SCH ×2 (07:30→23:10)
[2019-12-01] MEDS: DOCUSATE 100 MG CAP PO SCH ×2 (07:31→23:10)
[2019-12-01] MEDS: CEFEPIME 2 GM in SODIUM CHLORIDE 0.9% 100 ML IVPB SCH ×2 (07:31→22:23)
[2019-12-01] MEDS: PANTOPRAZOLE 40 MG/10 ML VIAL IVP SCH (07:31)
[2019-12-01] MEDS: ALPRAZolam 0.5 MG TAB PO PRN (07:42)
[2019-12-01] MEDS: FAT EMULSION 20% 250 ML IV SCH (07:52)
[2019-12-01] MEDS: SODIUM CHLORIDE TAB 1 GM TAB PO SCH ×2 (07:52→22:17)
--- NOTE | 2019-12-01 08:00 | P.PN ---
Subjective From a course: Patient is 69-year-old female with a known history of metastatic left breast cancer with mets to colon, SIADH, subclinical hypothyroidism, moderate protein calorie moderation, anxiety initially presented to ER at [facility] with complaints of persistent diarrhea and nausea. Denies any episodes of vomiting. Denies any severe abdominal discomfort. Patient does have metastatic lesions in the colon. Patient is currently receiving chemotherapy last time about 1 week ago with a Mediport. Initially denied any complaints of fever or chills. No complaints of chest pain. No cough or sputum production. No leg swelling. Denied any dysuria or hematuria. Patient was found to be neutropenic and hyponatremia with sodium level 126. CT of the abdomen pelvis showed colonic wall thickening felt to be related to her metastasis. There was a small amount of ascites noted with a question of peritoneal implants, there was small urothelial thickening and questionable for possible urinary tract infection. And small bilateral pleural effusions were noted. Patient became febrile this afternoon with T-max of 101.3 Laboratory data showed WBC of 0.9, hemoglobin 10.6 and platelets 255 Sodium level is 126 Chloride 97, bicarb is 21 BUN 12 and creatinine 0.43 Calcium 8.0 Albumin 3.0 Coronavirus not detected. Urinalysis showed cloudy, nitrite positive and large leukocyte esterase with WBC 7 11/19/2019 Patient is currently lying in the bed, feeling very weak. Patient was febrile yesterday and septic work-up was done. Patient was found to have urinary tract infection and also due to neutropenia patient was started broad-spectrum antibiotics and ID was consulted. Currently patient is on vancomycin and cefepime. Afebrile now. Potassium is 2.9 which is being replaced and magnesium as well. CT of the abdomen pelvis was ordered due to complaints of abdominal pain mainly in the lower region. No complaints of diarrhea now. No headache or dizziness. No chest pain or shortness of breath. 11/20/2019 Patient is currently lying in the bed comfortably. Afebrile overnight. Currently being continued on broad-spectrum antibiotics in the form of vancomycin and cefepime. ID is following. Urine culture is pending. Otherwise patient denied any chest pain or shortness breath. Patient still having abdominal discomfort and CT of the abdomen pelvis was ordered yesterday which showed small bowel dilatation up to 3 cm with air-fluid levels. Small bowel obstruction suggested. Patient was placed on NG tube and diet change to nothing by mouth. General surgery was consulted. Patient will be continued on IV hydration. Subjective, this is the first day I take care of the patient 11/21/2019 This is a pleasant lady who was admitted on 11/16 for diarrhea, she came from [facility]. She found to have febrile neutropenia, bowel obstruction and UTI. Patient is been evaluated by several consults INCLUDING infectious disease, surgery and oncology. She has history of metastatic left breast cancer to bone on possible to: On peritoneal she got chemotherapy about one week earlier. She's been treated currently on cefepime and IV Flagyl, also she is on normal saline at 90 mL/h. She has increased tumor markers of CAD 15-30 into [place] and CA 27-29, CT of the abdomen showing bowel obstruction. And urine culture came back positive for staph aureus, patient received therapy before with IV vancomycin, we'll going to check with ID team if she is going to need more therapy. She feels generally weak, she still nothing by mouth, with no vomiting, NG tube is in place with little or no secretions. She has. Umbilical abdominal pain and tenderness, she was passing gases and have bowel movement the night before yesterday as per patient Blood pressure on the low-normal signed 94/69 and reversal vitals are stable. WBC went up to 19.4 K, sodium 1:30, creatinine 0.3. Magnesium 1.5 11/22/2019 Patient is alert and awake. She still complaining from abdominal pain and tenderness, she is tolerating only a little of her liquid diet although there is no vomiting and she has normal bowel movement and passing only gases. Her abdomen looks distended and she has tenderness in the upper part of the abdomen Patient feels weak has had difficulty getting up and moving around Blood pressure low-normal 99/67, still have leukocytosis of 19.4 K, hemoglobin 9.4. Sodium 129, creatinine normal, potassium of 3.3 Surgery team on the case and the recommended colonoscopy at certain point., Patient informed and she agrees with this recommendation.. Selective for and is negative. Low TIBC suggestive of anemia of chronic disease. Patient is already on 3 antibiotics with cefepime, Flagyl and IV vancomycin for her intra-abdominal infection and UTI.. She still in normal saline at 90 mL/h Last for physical therapy evaluation 11/23/2019 Patient management comfortable not in distress, she did not eat follow-up of diabetes and day, she is trying to eat more today, she still on liquid diet however her abdominal pain around the periumbilical since same with tenderness but no rebound tenderness. No nausea vomiting however last night she has loose bowel movement as well as she is passing gas. She stent in bed most of the time and physical therapy is consulted. No urinary symptoms like no dysuria or change in frequency, staff in the urine is colonization and no need for vancomycin which was stopped by ID team Blood pressure is stable at 105/72, fever subsided. The loose is coming down to 15.1 K, on sodium is up to 131. 11/24/2019 The patient sitting in chair, not in distress. Patient denies chest pain or dyspnea. However she is not eating well while she is on liquid diet, she still have some abdominal pain, no bowel movement or passing gases yesterday. Patient was started on bowel regiment by surgery team Surgical team are planning for patient to go for colonoscopy on Thursday11/25/2019 Patient is lying in bed comfortable not in distress. She is not eating, she got suppository followed by loose bowel movement, no vomiting abdominal pain is controlled. She is started on TPN and she is tolerating that well Left upper extremity ultrasound is negative for DVT Planned for coloscopy on Thursday11/26/2019 Patient is clinically similar to yesterday, she is not eating while she is on TPN. No vomiting abdominal pain is controlled she has no bowel movement despite of several bowel preparations. CBC, BMP, magnesium and phosphorus are unremarkable We will keep to follow up 11/27/2019 pt is awake, no distress, she is being prepared with bowel regiments and golytly for colonoscopy tomorrow and she is having several bowel movements , no wor sening abd pain , not eating much and she is on TPN. she has swelling in her extremites both upper and lower and normal saline was discontinued and give one dose of lasix vitals are stable, labs are reviewed ,her sodium today is 129, creatinine is normal at 0.3 she is on cefepime and flagyl as well 11/28/2019 Patient is awake and alert, no other new complaint. Patient underwent colonoscopy today and found to have to splenic flexure with thickened mucosal wall and near obstruction, biopsy was taken and results are pending Recommended to continue with clear liquid diet. However patient does not have appetite and she still on TPN. Abdominal looks soft. No nausea vomiting. Vital signs stable and sodium is 128, we'll sodium chloride tablets. WBCs back to normal today at 10.2 K. Hemoglobin is 8.8. Patient continue on cefepime and Flagyl. IV fluids were stopped 11/29/2019 Patient still feeling generally weak however she is awake and alert. No distress. She was placed on clear liquid diet after the colonoscopy done yesterday showing narrowing of the splenic flexure with mucosal thickening. However patient is consuming a lot of her diet because of low appetite and nausea. Continue with Zofran. Abdominal pain is minimal. She still has bilateral leg edema Vitals are stable.Sodium is 128, creatinine normal, sugar control. She continue on cefepime and IV Flagyl. Normal saline was discontinued and she is on TPN.: Biopsy is pending. Patient has been told she will need a second procedure or surgery, we'll follow recommendation by the surgical team 11/30/2019 Patient is awake, comfortable not in distress. No much abdominal pain today, her leg swelling is coming down. Vitals are stable. Sodium improved to 130 Patient is planned for exploratory laparotomy with creation of colostomy tomorrow. Patient is aware Patient at some risk from the surgery however there is no absolute contraindication 12/01/2019 Patient comfortable in bed, she had some abdominal pain this morning or she got pain medication. No chest pain or dyspnea. She is breathing quietly. Vitals are stable, Her sodium is 130, stable. Patient continue on antibiotics and TPN. Patient expected to go for surgery for diverting colostomy with Dr. Curtis today about 1 PM. Patient is still in the she agrees to the surgery and she signed a consent already with surgery team. We will keep to follow Objective - Vital Signs Vital signs: Vital Signs Temp 98.1 F 12/01/19 05:00 Pulse 79 12/01/19 05:00 Resp 16 12/01/19 05:00 BP 102/66 12/01/19 05:00 Pulse Ox 97 12/01/19 05:00 Intake & Output 11/30/19 12/01/19 12/01/19 18:59 06:59 18:59 Weight 40.9 kg Other: Voiding Method Bedside Commode Bedside Commode # Voids 2 - Exam GENERAL: The patient is alert and oriented x3, not in any acute distress. Well developed, well nourished. HEENT: Pupils are round and equally reacting to light. EOMI. No scleral icterus. No conjunctival pallor. Normocephalic, atraumatic. No pharyngeal erythema. No thyromegaly. CARDIOVASCULAR: S1 and S2 present. No murmurs, rubs, or gallops. PULMONARY: Chest is clear to auscultation, no wheezing or crackles. -ABDOMEN: Soft, periumbilical tenderness, slightly distended, normoactive bowel sounds. No palpable organomegaly. NG tube is in a Place MUSCULOSKELETAL: No joint swelling or deformity. EXTREMITIES: No cyanosis, clubbing, or pedal edema. NEUROLOGICAL: Gross neurological examination did not reveal any focal deficits. SKIN: No rashes. no petechiae. - Labs CBC & Chem 7: 11/26/19 06:38 12/01/19 06:00 Labs: Abnormal Lab Results - Last 24 Hours (Table) 11/30/19 11/30/19 11/30/19 Range/Units 11:12 17:10 20:27 Sodium (137-145) mmol/L Creatinine (0.52-1.04) mg/dL POC Glucose (mg/dL) 125 H 124 H 109 H (75-99) mg/dL Calcium (8.4-10.2) mg/dL Albumin (3.5-5.0) g/dL 12/01/19 12/01/19 Range/Units 00:19 06:00 Sodium 130 L (137-145) mmol/L Creatinine 0.30 L (0.52-1.04) mg/dL POC Glucose (mg/dL) 130 H (75-99) mg/dL Calcium 7.8 L (8.4-10.2) mg/dL Albumin 2.1 L (3.5-5.0) g/dL Microbiology - Last 24 Hours (Table) 11/24/19 15:45 Blood Culture - Final Blood No Growth after 144 hours 11/24/19 15:47 Blood Culture - Final Blood No Growth after 144 hours Assessment and Plan Assessment: Acute small bowel obstruction, versus ileus, she underwent colonoscopy on 11/27 found near obstruction and splenic flexure with significant mucosal membrane. Patient is going for colostomy creation on 11/30 Preop evaluation Febrile neutropenia, improved Acute diarrhea along with nausea due to chemotheraphy. Improved Bicytopenia due to chemotherapy. Improved and growth factors is stopped Hyponatremia likely hypoosmolar. Metastatic breast cancer with mets to colon and peritoneum. Currently on chemotherapy 1 week prior to admission Chronic back pain with compression fracture at T7 History of SIADH Hydronephrosis Subclinical hypothyroidism Right carpal tunnel syndrome History of bowel obstruction Anxiety Moderate protein calorie malnutrition Plan: This is a pleasant 69 years old female who presents with small bowel obstruction, febrile neutropenia related to her chemotherapy for breast cancer , resolved and UTI. Patient's vitals closely by infectious disease, surgery and oncology service. Continue with antibiotics as per ID team recommendation. Continue with IV fluids. Continue with TPN. Plan for a possible diverting colostomy by surgical team. Patient is at higher risk but no contraindication for the surgery Labs and medication were reviewed.. Continue same treatment. Continue with symptomatic treatment. Resume home medication. Monitor lytes and vitals. DVT and GI prophylaxis. Further recommendations of the clinical course of the patient DVT prophylaxis: Subcutaneous heparin GI Prophylaxis: Ppi Prognosis is guarded
--- NOTE | 2019-12-01 09:07 | P.HPADDEND ---
H&P Addendum H&P Addendum Date: 12/01/19 Patient's labs reviewed. Last CBC 5 days ago. We'll repeat CBC. Will also obtain type and screen due to anemia.
[2019-12-01 09:46] LABS: Anisocytosis Slight; HCT 28.4 % (34.0-46.0); HGB 8.8 gm/dL (11.4-16.0); Hypochromasia Slight; MCH 28.9 pg (25.0-35.0); MCV 93.4 fL (80.0-100.0); Macrocytosis Slight; Mean Platelet Volume 7.4; Platelet Count 443 k/uL (150-450); RBC 3.04 m/uL (3.80-5.40); RDW 18.6 % (11.5-15.5); WBC 6.6 k/uL (3.8-10.6)
[2019-12-01] MEDS: MAGNESIUM SULFATE-D5W PMX 1 GM in DEXTROSE/WATER 1 100ML.BAG IVPB SCH ×2 (11:05→13:13)
[2019-12-01 12:28] LABS: Glucose,Whole Blood 124 mg/dL (75-99)
[2019-12-01] MEDS ORDERED: IV FLUID CONTINUATION 1,000 ML IV ONE (13:47)
[2019-12-01] MEDS ORDERED: LACTATED RINGERS 1,000 ML IV ONE ×3 (13:48→19:28)
[2019-12-01] MEDS ORDERED: 1: MVI, ADULT NO.4 WITH VIT K 10 ML, TRACE (CONC-1ML/DOSE) 1 ML, SODIUM CHLORIDE 2.5MEQ/ IV SCH ×5 (14:00)
[2019-12-01] MEDS ORDERED: ROCURONIUM BROMIDE 10 MG/ML 5 ML VIAL IV ONE (14:48)
[2019-12-01] MEDS ORDERED: fentaNYL (PF) 50 MCG/ML 2 ML AMP ONE (14:48)
[2019-12-01] MEDS ORDERED: SODIUM CHLORIDE 0.9% 100 ML BAG ONE (14:48)
[2019-12-01] MEDS ORDERED: LIDOCAINE 1% INJ 10MG/ML (20 ML MDV) ONE (14:48)
[2019-12-01] MEDS ORDERED: SUCCINYLCHOLINE CHLORIDE 100 MG/5 ML SYR IV ONE (14:48)
[2019-12-01] MEDS ORDERED: PHENYLEPHRINE-0.9% NACL SYG 1 MG/10 ML SYRINGE ONE (14:48)
[2019-12-01] MEDS ORDERED: ALBUMIN HUMAN 5% (12.5gm) 250 ML BOTTLE IVPB ONE (14:48)
[2019-12-01] MEDS ORDERED: MIDAZOLAM 2 MG/2 ML VIAL ONE (14:48)
[2019-12-01] MEDS ORDERED: GLYCOPYRROLATE 0.2 MG/ML 2 ML VIAL ONE (14:48)
[2019-12-01] MEDS ORDERED: HYDROmorphone (PF) 1 MG/ML ONE (14:48)
[2019-12-01] MEDS ORDERED: NEOSTIGMINE 1 MG/ML 10 ML VIAL ONE (14:48)
[2019-12-01] MEDS ORDERED: ceFAZolin 1,000 MG VIAL ONE (14:48)
[2019-12-01] MEDS ORDERED: ETOMIDATE 2 MG/ML 10 ML VIAL ONE (14:48)
[2019-12-01] MEDS: 1: MVI, ADULT NO.4 WITH VIT K 10 ML, TRACE (CONC-1ML/DOSE) 1 ML, SODIUM CHLORIDE 2.5MEQ/ IV SCH ×5 (16:43)
[2019-12-01] MEDS ORDERED: HYDROmorphone 1 MG/ML 1 ML SYRINGE IVP ONE (20:03)
[2019-12-01 20:09] LABS: Glucose,Whole Blood 123 mg/dL (75-99)
[2019-12-01] MEDS: fentaNYL (PF) 50 MCG/ML 2 ML AMP IVP ONE ×2 (20:14→20:25)
[2019-12-01] MEDS: MIDAZOLAM 2 MG/2 ML VIAL IVP ONE ×2 (20:15→20:25)
[2019-12-01] MEDS ORDERED: ONDANSETRON 4 MG/2 ML VIAL IVP PRN (20:17)
[2019-12-01] MEDS ORDERED: KETOROLAC 30 MG/ML 1 ML VIAL IVP SCH (20:30)
--- NOTE | 2019-12-01 20:30 | P.OP ---
Date of Procedure: 12/01/19 Description of Procedure: SURGEON: DENI VILLALOBOS MD PREOPERATIVE DIAGNOSES: 1. Large bowel obstruction, splenic flexure 2. Inadequate protein intake 3. Iron deficiency anemia 4. Metastatic breast cancer 5. Chronic pain syndrome 6. Underweight 7. Syndrome of inappropriate antidiuretic hormone secretion (SIADH) 8. Hydronephrosis 9. History of small bowel obstruction, status post small bowel resection 10. Generalized anxiety disorder POSTOPERATIVE DIAGNOSES: 1. Large bowel obstruction due to intraluminal and extraluminal metastatic disease, transverse colon, bilateral flexures 2. Inadequate protein intake 3. Iron deficiency anemia 4. Metastatic breast cancer 5. Chronic pain syndrome 6. Underweight 7. Syndrome of inappropriate antidiuretic hormone secretion (SIADH) 8. Hydronephrosis 9. History of small bowel obstruction, status post small bowel resection 10. Generalized anxiety disorder 12. Mesenteric metastases small bowel 13. Recurrent small bowel obstruction, jejunum 14. Midline incisional hernia OPERATION: 1. Exploratory laparotomy lysis of adhesion 2. Small bowel resection 3 with anastomosis, mid jejunum and proximal ileum 3. Subtotal colectomy with end ileostomy, right lower abdomen 4. Peritoneal lavage 1 L 5. Application of wound VAC, Prevena 20-cm 6. Placement of round #19 Wilder-Melendez drain left pelvis COMPLICATIONS: None. Estimated Blood Loss (ml): 250 Pathology: other (1. Peritoneal lesion 2. Small bowel anastomosis 3. Small bowel resections 4. Subtotal colectomy) Condition: stable Disposition: floor Operative Findings: 1. Upon entry into the abdomen, new focal point of small bowel obstruction involving the mid jejunum with multiple involvement of small bowel requiring 3 small bowel resections, mid jejunum and proximal ileum 2. Dense metastatic disease involving the hepatic flexure, entire transverse colon, splenic flexure requiring subtotal colectomy 3. Dense mesenteric metastatic disease involving transverse mesocolon mesentery including high splenic flexure 4. Palliative end ileostomy for large bowel obstruction performed 5. Placement of CLAUDINE drain left pelvis 6. Wound VAC placed along the mid abdomen to minimize risk of surgical site infection 7. Midline incisional hernia 4 cm at umbilicus repaired during closure. INDICATIONS: The patient is a 69-year-old female with metastatic breast cancer unresponsive to chemotherapy. She reports chronic diarrhea ongoing for over several months. Diagnostic studies demonstrated near obstructive lesion along the splenic flexure. Colonoscopy also demonstrated similar findings with biopsies being negative. With her symptomatic large bowel obstruction, diverting colostomy was described. Benefits and risks of surgery including r ecurrence, bleeding, infection were described. All questions were answered and risks were reviewed. Informed consent was obtained. DESCRIPTION: Patient was brought to the operating room. She was on scheduled IV antibiotics and TPN. The patient was placed in supine position whereby general induction was performed. Abdomen had been prepped and draped in the standard sterile fashion with placement of nasogastric tube and Mandujano catheter. Ioban draping was also placed to minimize any contamination to the skin. Next, using #10 blade, the abdomen was entered along the midline whereby an incision was made at the xiphoid to the pubis. The peritoneum was entered. Next, Bookwalter retractor was placed. Inspection of the abdomen demonstrated peritoneal lesions along prior small bowel anastomosis involving the mid to distal jejunum. Additionally, multifocal small bowel obstructive point at the right lower quadrant was found requiring small bowel resection 3 incorporating mid jejunum to proximal ileum. Each resection was performed in a stepwise fashion with proximal distal small bowel resection using Covidien tri-stapler 60-mm mathis loads with closure of enterostomy using 60 mm purple loads. Each mesentery were mobilized using Enseal. The entangled small bowel with obstruction was resected en-total and passed off for specimen. Peritoneal lesion of 1 cm was also resected using Bovie cautery and passed off for pathology. Small bowel anastomosis was passed off for pathology. The entire small bowel was addressed with all obstructive lesions resected. Attention was brought to the rest of the colon whereby the cecum was moderately dilated consistent with obstructive colonic lesion distally. Palpation along the colon including at the hepatic flexure confirmed intraluminal tumor. At the mid transverse colon, the entire transverse mesocolon was incorporated in metastatic disease. Additionally, the splenic flexure was high with dense disease also affecting the proximal distal colon with near obstruction. With this finding, a subtotal colectomy was proposed to address all obstructive lesions incorporating majority of the colon with sparing of the sigmoid colon. The ascending and descending colon were mobilized along the white line of Toldt. The sigmoid colon was without metastatic disease including rectum. At the sigmoid colon, the mesentery was mobilized after creating a window using electro-Bovie cautery. The mid sigmoid colon was resected using 60 mm purple load. The splenic flexure was extremely high with dense disease incorporating the proximal distal colon including transverse colon. The dense mesentery was carefully mobilized using Enseal avoiding any bleeding. Additionally, at the ligament of Treitz, dense metastatic disease was also identified and carefully dissected using digital palpation without any injury to the duodenum and retroperitoneal structures. At the distal ileum, 5 cm proximal to the ileocecal valve, a window was created along the mesentery and mobilized using Enseal. The distal ileum was resected using 60 mm mathis load. An end ileostomy was proposed along the right lower quadrant. The subtotal colectomy specimen was passed off. Hemostasis was excellent throughout the case. Minimal contamination occurred throughout the case. The ileostomy was prepared for maturation. A point along the abdominal wall and rectus muscle was selected for ileostomy. Fermín was used to elevate the skin and a #10 blade was taken across in tangential manner to create the skin defect of 2-cm. The fat of the skin was mobilized using a small rich. The rectus muscle was identified and scored with a cruciate scoring of electro- Bovie cautery. Next, using a muscle-splitting technique with a hemostat, the peritoneum was entered. The peritoneum was widened and the ileostomy was evaginated through the skin. The abdominal cavity was copiously irrigated using 1 liters of warm normal saline solution until completely clear and dry. A round # 19 CLAUDINE drain was placed along the pelvis and exited via the left lower quadrant and tagged to the skin using 2-0 Nylon. A 4 cm incisional hernia at the umbilicus was incorporated into the closure for repair. The midline incision was closed using double-stranded 0 PDS. Next, the subcutaneous tissue was copiously irrigated with normal saline and dilute hydrogen peroxide. About the umbilicus interrupted 3-0 Vicryl dermal sutures were placed as to avoid any angelic around the umbilicus. For the rest of the incision, stainless skin angelic were placed. A Prevena 20-cm wound VAC was applied along the midline. The midline incision was covered and attention was brought to maturation of the ileostomy. The staple edge was divided and removed. Next quadrant sutures at 12 o'clock, 3 o'clock, 6 o'clock, and 9 o'clock position was made using serosa, mucosal and dermal bites using 3-0 Vicryl. Interrupted 3-0 Vicryl was placed in between all quadrants sutures to completely mature the ostomy. Hemostasis was checked. A Coloplast was then placed. All incisions and hemostasis was checked. At the end of the procedure, needle, sponge, and instrument count had been verified correct by photonic laboratory technician.
[2019-12-01] MEDS ORDERED: NALOXONE 0.4 MG/ML 1 ML VIAL IV PRN (22:43)
[2019-12-01] MEDS: ZOLPIDEM 5 MG TAB PO SCH (23:10)
[2019-12-01 23:46] LABS: Glucose,Whole Blood 119 mg/dL (75-99)
[2019-12-01] MEDS: fentaNYL PCA 500 MCG/50 ML BAG IV PRN (23:56)
[2019-12-02] MEDS ORDERED: ACETAMINOPHEN TAB 325 MG TAB PO SCH
[2019-12-02] MEDS: ACETAMINOPHEN IV (For NPO) 600 MG in EMPTY BAG 1 BAG IVPB SCH ×4 (00:44→17:13)
[2019-12-02] MEDS: GABAPENTIN 300 MG CAP PO SCH ×4 (00:49→22:07)
[2019-12-02] MEDS: SODIUM CHLORIDE TAB 1 GM TAB PO SCH ×4 (00:49→22:07)
[2019-12-02] MEDS: INSULIN ASPART (NovoLOG) 100 UNIT/ML VIAL SQ SCH ×4 (00:50→18:09)
[2019-12-02] MEDS: metroNIDAZOLE-NS PMX 500 MG in SALINE 1 100ML.BAG IVPB SCH ×3 (01:41→17:30)
[2019-12-02] MEDS ORDERED: SODIUM CHLORIDE 0.9% 1,000 ML IV ONE (02:33)
[2019-12-02] MEDS: SODIUM CHLORIDE 0.9% 1,000 ML IV SCH ×3 (03:21→21:15)
[2019-12-02 06:04] LABS: Glucose,Whole Blood 126 mg/dL (75-99)
--- NOTE | 2019-12-02 06:08 | P.PN ---
Progress Note - Text Progress Note Date: 12/02/19 Patient reassessed following surgery. Patient has chronic pain needs and high tolerance for pain medication. Per discussion PACU nurse, patient placed on fentanyl with response versus minimal response with Dilaudid. 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 Will need pain management services.
[2019-12-02] MEDS: fentaNYL PCA 500 MCG/50 ML BAG IV PRN (06:24)
[2019-12-02] MEDS ORDERED: LIDOCAINE 1% (10MG/ML) FOR IV START INTRADERMA PRN (07:01)
[2019-12-02] MEDS ORDERED: DEXAMETHASONE SOD PHOSPHATE 10 MG/ML 1 ML VIAL IV ONE (07:01)
[2019-12-02] MEDS ORDERED: HYDROmorphone 0.5 MG/0.5 ML SYRINGE IVP PRN (07:01)
--- NOTE | 2019-12-02 07:03 | PN ---
PROGRESS NOTE DATE OF SERVICE: 12/01/2019 REASON FOR FOLLOWUP: Abdominal infection. INTERVAL HISTORY: The patient was taken to the OR today. The patient is status post exploratory laparotomy with lysis of adhesions and small bowel resection, anastomosis, subtotal colectomy in this patient who did have a significant ( ), hepatic flexure and ( ). Patient remains to be afebrile. No chest pain. No shortness of breath. No nausea, no vomiting. No diarrhea. PHYSICAL EXAMINATION: Blood pressure 123/70 with a pulse of 102, temp 97.5. She is 96% on 2 L nasal cannula. General description is an elderly female lying in bed in no distress. Respiratory system: Unlabored breathing, clear to auscultation anteriorly. Heart S1, S2. Regular rate and rhythm. Abdomen soft, mildly tender. LABS: Hemoglobin is 8.8, white count 6.6, BUN of 10, creatinine 0.30. DIAGNOSTIC IMPRESSION AND PLAN: Patient admitted to the hospital with febrile ( ), source is abdominal and this patient noticed to have significant cecal ( ) along with small bowel obstruction,now status post laparotomy with evidence of metastatic disease status post subtotal colectomy and ileostomy: The patient is covered with cefepime and Flagyl to continue perioperatively. However, may not need ad terminal makeup operator antibiotic on discharge. Continue supportive care. MMODL / IJN: [id number] /
[2019-12-02] MEDS: LACTATED RINGERS 1,000 ML IV SCH (07:09)
--- NOTE | 2019-12-02 07:36 | P.PN ---
Subjective From a course: Patient is 69-year-old female with a known history of metastatic left breast cancer with mets to colon, SIADH, subclinical hypothyroidism, moderate protein calorie moderation, anxiety initially presented to ER at [facility] with complaints of persistent diarrhea and nausea. Denies any episodes of vomiting. Denies any severe abdominal discomfort. Patient does have metastatic lesions in the colon. Patient is currently receiving chemotherapy last time about 1 week ago with a Mediport. Initially denied any complaints of fever or chills. No complaints of chest pain. No cough or sputum production. No leg swelling. Denied any dysuria or hematuria. Patient was found to be neutropenic and hyponatremia with sodium level 126. CT of the abdomen pelvis showed colonic wall thickening felt to be related to her metastasis. There was a small amount of ascites noted with a question of peritoneal implants, there was small urothelial thickening and questionable for possible urinary tract infection. And small bilateral pleural effusions were noted. Patient became febrile this afternoon with T-max of 101.3 Laboratory data showed WBC of 0.9, hemoglobin 10.6 and platelets 255 Sodium level is 126 Chloride 97, bicarb is 21 BUN 12 and creatinine 0.43 Calcium 8.0 Albumin 3.0 Coronavirus not detected. Urinalysis showed cloudy, nitrite positive and large leukocyte esterase with WBC 7 11/19/2019 Patient is currently lying in the bed, feeling very weak. Patient was febrile yesterday and septic work-up was done. Patient was found to have urinary tract infection and also due to neutropenia patient was started broad-spectrum antibiotics and ID was consulted. Currently patient is on vancomycin and cefepime. Afebrile now. Potassium is 2.9 which is being replaced and magnesium as well. CT of the abdomen pelvis was ordered due to complaints of abdominal pain mainly in the lower region. No complaints of diarrhea now. No headache or dizziness. No chest pain or shortness of breath. 11/20/2019 Patient is currently lying in the bed comfortably. Afebrile overnight. Currently being continued on broad-spectrum antibiotics in the form of vancomycin and cefepime. ID is following. Urine culture is pending. Otherwise patient denied any chest pain or shortness breath. Patient still having abdominal discomfort and CT of the abdomen pelvis was ordered yesterday which showed small bowel dilatation up to 3 cm with air-fluid levels. Small bowel obstruction suggested. Patient was placed on NG tube and diet change to nothing by mouth. General surgery was consulted. Patient will be continued on IV hydration. Subjective, this is the first day I take care of the patient 11/21/2019 This is a pleasant lady who was admitted on 11/16 for diarrhea, she came from [facility]. She found to have febrile neutropenia, bowel obstruction and UTI. Patient is been evaluated by several consults INCLUDING infectious disease, surgery and oncology. She has history of metastatic left breast cancer to bone on possible to: On peritoneal she got chemotherapy about one week earlier. She's been treated currently on cefepime and IV Flagyl, also she is on normal saline at 90 mL/h. She has increased tumor markers of CAD 15-30 into Efren and CA 27-29, CT of the abdomen showing bowel obstruction. And urine culture came back positive for staph aureus, patient received therapy before with IV vancomycin, we'll going to check with ID team if she is going to need more therapy. She feels generally weak, she still nothing by mouth, with no vomiting, NG tube is in place with little or no secretions. She has. Umbilical abdominal pain and tenderness, she was passing gases and have bowel movement the night before yesterday as per patient Blood pressure on the low-normal signed 94/69 and reversal vitals are stable. WBC went up to 19.4 K, sodium 1:30, creatinine 0.3. Magnesium 1.5 11/22/2019 Patient is alert and awake. She still complaining from abdominal pain and tenderness, she is tolerating only a little of her liquid diet although there is no vomiting and she has normal bowel movement and passing only gases. Her abdomen looks distended and she has tenderness in the upper part of the abdomen Patient feels weak has had difficulty getting up and moving around Blood pressure low-normal 99/67, still have leukocytosis of 19.4 K, hemoglobin 9.4. Sodium 129, creatinine normal, potassium of 3.3 Surgery team on the case and the recommended colonoscopy at certain point., Patient informed and she agrees with this recommendation.. Selective for and is negative. Low TIBC suggestive of anemia of chronic disease. Patient is already on 3 antibiotics with cefepime, Flagyl and IV vancomycin for her intra-abdominal infection and UTI.. She still in normal saline at 90 mL/h Last for physical therapy evaluation 11/23/2019 Patient management comfortable not in distress, she did not eat follow-up of diabetes and day, she is trying to eat more today, she still on liquid diet however her abdominal pain around the periumbilical since same with tenderness but no rebound tenderness. No nausea vomiting however last night she has loose bowel movement as well as she is passing gas. She stent in bed most of the time and physical therapy is consulted. No urinary symptoms like no dysuria or change in frequency, staff in the urine is colonization and no need for vancomycin which was stopped by ID team Blood pressure is stable at 105/72, fever subsided. The loose is coming down to 15.1 K, on sodium is up to 131. 11/24/2019 The patient sitting in chair, not in distress. Patient denies chest pain or dyspnea. However she is not eating well while she is on liquid diet, she still have some abdominal pain, no bowel movement or passing gases yesterday. Patient was started on bowel regiment by surgery team Surgical team are planning for patient to go for colonoscopy on Thursday11/25/2019 Patient is lying in bed comfortable not in distress. She is not eating, she got suppository followed by loose bowel movement, no vomiting abdominal pain is controlled. She is started on TPN and she is tolerating that well Left upper extremity ultrasound is negative for DVT Planned for coloscopy on Thursday11/26/2019 Patient is clinically similar to yesterday, she is not eating while she is on TPN. No vomiting abdominal pain is controlled she has no bowel movement despite of several bowel preparations. CBC, BMP, magnesium and phosphorus are unremarkable We will keep to follow up 11/27/2019 pt is awake, no distress, she is being prepared with bowel regiments and golytly for colonoscopy tomorrow and she is having several bowel movements , no wor sening abd pain , not eating much and she is on TPN. she has swelling in her extremites both upper and lower and normal saline was discontinued and give one dose of lasix vitals are stable, labs are reviewed ,her sodium today is 129, creatinine is normal at 0.3 she is on cefepime and flagyl as well 11/28/2019 Patient is awake and alert, no other new complaint. Patient underwent colonoscopy today and found to have to splenic flexure with thickened mucosal wall and near obstruction, biopsy was taken and results are pending Recommended to continue with clear liquid diet. However patient does not have appetite and she still on TPN. Abdominal looks soft. No nausea vomiting. Vital signs stable and sodium is 128, we'll sodium chloride tablets. WBCs back to normal today at 10.2 K. Hemoglobin is 8.8. Patient continue on cefepime and Flagyl. IV fluids were stopped 11/29/2019 Patient still feeling generally weak however she is awake and alert. No distress. She was placed on clear liquid diet after the colonoscopy done yesterday showing narrowing of the splenic flexure with mucosal thickening. However patient is consuming a lot of her diet because of low appetite and nausea. Continue with Zofran. Abdominal pain is minimal. She still has bilateral leg edema Vitals are stable.Sodium is 128, creatinine normal, sugar control. She continue on cefepime and IV Flagyl. Normal saline was discontinued and she is on TPN.: Biopsy is pending. Patient has been told she will need a second procedure or surgery, we'll follow recommendation by the surgical team 11/30/2019 Patient is awake, comfortable not in distress. No much abdominal pain today, her leg swelling is coming down. Vitals are stable. Sodium improved to 130 Patient is planned for exploratory laparotomy with creation of colostomy tomorrow. Patient is aware Patient at some risk from the surgery however there is no absolute contraindication 12/01/2019 Patient comfortable in bed, she had some abdominal pain this morning or she got pain medication. No chest pain or dyspnea. She is breathing quietly. Vitals are stable, Her sodium is 130, stable. Patient continue on antibiotics and TPN. Patient expected to go for surgery for diverting colostomy with Dr. Curtis today about 1 PM. Patient is still in the she agrees to the surgery and she signed a consent already with surgery team. We will keep to follow 12/02/2019 Patient had extensive surgery yesterday she status post expiratory laparotomy found to have large bowel obstruction with metastatic breast cancer and diffuse metastatic mesentery, , Status post subtotal colectomy and resection of the small bowel and end ileostomy. She hasa drain, and wound VAC in the middle and empty ileostomy back on the right lower abdomen. Patient had a rough night with significant pain. Surgery team or the case. Patient is currently on fentanyl, MRI appears to be given advanced through the vein with fentanyl. Patient might benefit from upgrading her pain medication and/or anesthesia consult for pain management. She received IV bolus last night for low blood pressure and currently her blood pressure is better this morningat 118/57. No fever, she is tachycardic when 18-122, probably due to pain. There is a vitals are stable. The anemic for surgery which is expected and hemoglobin 8.8, WBC 6.6K. She still on cefepime and IV Flagyl. She is on TPN and fentanyl patch. Mandujano catheter is in place. Oncology team on the case and follow the recommendation Objective - Vital Signs Vital signs: Vital Signs Temp 97.3 F L 12/02/19 04:32 Pulse 118 H 12/02/19 04:32 Resp 22 12/02/19 04:32 BP 118/57 12/02/19 04:32 Pulse Ox 97 12/02/19 04:32 Intake & Output 12/01/19 12/02/19 12/02/19 18:59 06:59 18:59 Intake Total 1800 275 Output Total 250 1850 Balance 1550 -1575 Intake: IV 1800 275 Output: Drainage 50 Right Abdomen 50 Urine 1800 Uretheral (Mandujano) 900 Estimated Blood Loss 250 Other: Voiding Method Bedside Commode Indwelling Catheter - Exam GENERAL: The patient is alert and oriented x3, not in any acute distress. Well developed, well nourished. HEENT: Pupils are round and equally reacting to light. EOMI. No scleral icterus. No conjunctival pallor. Normocephalic, atraumatic. No pharyngeal erythema. No thyromegaly. CARDIOVASCULAR: S1 and S2 present. No murmurs, rubs, or gallops. PULMONARY: Chest is clear to auscultation, no wheezing or crackles. -ABDOMEN: Soft, periumbilical tenderness, slightly distended, normoactive bowel sounds. No palpable organomegaly. NG tube is in a Place MUSCULOSKELETAL: No joint swelling or deformity. EXTREMITIES: No cyanosis, clubbing, or pedal edema. NEUROLOGICAL: Gross neurological examination did not reveal any focal deficits. SKIN: No rashes. no petechiae. - Labs CBC & Chem 7: 12/01/19 09:29 12/01/19 06:00 Labs: Abnormal Lab Results - Last 24 Hours (Table) 12/01/19 12/01/19 12/01/19 Range/Units 09:29 12:18 20:07 RBC 3.04 L (3.80-5.40) m/uL Hgb 8.8 L (11.4-16.0) gm/dL Hct 28.4 L (34.0-46.0) % RDW 18.6 H (11.5-15.5) % POC Glucose (mg/dL) 124 H 123 H (75-99) mg/dL 12/01/19 12/02/19 Range/Units 23:43 06:02 RBC (3.80-5.40) m/uL Hgb (11.4-16.0) gm/dL Hct (34.0-46.0) % RDW (11.5-15.5) % POC Glucose (mg/dL) 119 H 126 H (75-99) mg/dL Assessment and Plan Assessment: Large bowel obstruction and diffuse metastatic mesentery secondary to breast cancer status post subtotal colectomy and small bowel resection and end ileostomy Febrile neutropenia, improved Acute diarrhea along with nausea due to chemotheraphy. Improved Bicytopenia due to chemotherapy. Improved and growth factors is stopped Hyponatremia likely hypoosmolar. Metastatic breast cancer with mets to colon and peritoneum. Currently on chemotherapy 1 week prior to admission Chronic back pain with compression fracture at T7 History of SIADH Hydronephrosis Subclinical hypothyroidism Right carpal tunnel syndrome History of bowel obstruction Anxiety Moderate protein calorie malnutrition Plan: This is a pleasant 69 years old female who presents with small bowel obstruction, with metastatic breast cancer status post surgery as above. Surgical team are following the case closely, patient she still been unc ontrolled, we'll refer to surgery team for pain management, , surgery and oncology service. Continue with antibiotics as per ID team recommendation. Continue with IV fluids. Continue with TPN. Labs and medication were reviewed.. Continue same treatment. Continue with symptomatic treatment. Resume home medication. Monitor lytes and vitals. DVT and GI prophylaxis. Further recommendations of the clinical course of the patient DVT prophylaxis: Subcutaneous heparin GI Prophylaxis: Ppi Prognosis is guarded
[2019-12-02 07:50] LABS: Anisocytosis Slight; Basophils % (A) 0 %; Eosinophils # (A) 0.1 k/uL (0-0.7); Eosinophils % (A) 0 %; HCT 28.5 % (34.0-46.0); Hypochromasia Moderate; Lymphocytes # (A) 0.3 k/uL (1.0-4.8); Lymphocytes % (A) 1 %; MCH 30.3 pg (25.0-35.0); MCHC 31.7 g/dL (31.0-37.0); MCV 95.6 fL (80.0-100.0); Macrocytosis Slight; Mean Platelet Volume 7.4; Monocytes # (A) 0.5 k/uL (0-1.0); Monocytes % (A) 2 %; Neutrophils # (A) 22.9 k/uL (1.3-7.7); Neutrophils % (A) 96 %; Platelet Count 472 k/uL (150-450); RBC 2.98 m/uL (3.80-5.40); RDW 18.9 % (11.5-15.5); WBC 23.8 k/uL (3.8-10.6)
[2019-12-02] MEDS: FAT EMULSION 20% 250 ML IV SCH (07:55)
[2019-12-02] MEDS: CEFEPIME 2 GM in SODIUM CHLORIDE 0.9% 100 ML IVPB SCH ×2 (07:56→21:52)
[2019-12-02] MEDS: PANTOPRAZOLE 40 MG/10 ML VIAL IVP SCH (07:58)
[2019-12-02] MEDS: HEPARIN SODIUM,PORCINE 5,000 UNIT/ML 1 ML VIAL SQ SCH ×2 (07:58→22:07)
[2019-12-02 08:04] LABS: African American GFR (CKD) >90 (>60 ml/min/1.73 sqM); Anion Gap 4 mmol/L; Blood Urea Nitrogen 13 mg/dL (7-17); Carbon Dioxide 22 mmol/L (22-30); Chloride 105 mmol/L (98-107); Glucose 103 mg/dL (74-99); Magnesium 1.7 mg/dL (1.6-2.3); Non-African American GFR(CKD) >90 (>60 ml/min/1.73 sqM); Potassium 3.6 mmol/L (3.5-5.1); Sodium 131 mmol/L (137-145)
[2019-12-02] MEDS: DOCUSATE 100 MG CAP PO SCH ×2 (08:25→22:07)
[2019-12-02] MEDS ORDERED: MORPHINE SULFATE IR 15 MG TABLET PO PRN (11:09)
[2019-12-02] MEDS: HYDROmorphone 1 MG/ML 1 ML SYRINGE IVP PRN ×5 (11:55→22:41)
--- NOTE | 2019-12-02 12:13 | P.PN ---
Subjective Progress Note Date: 12/02/19 CHIEF COMPLAINT: bowel obstruction HISTORY OF PRESENT ILLNESS: Patient is status post exploratory laparotomy with lysis of adhesions, small bowel resection 3 with anastomosis, and subtotal colectomy with end ileostomy. POD #1. Patient reports uncontrolled pain this morning. 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 NG to LIS with bilious drainage. HR 110-120s. She is afebrile. PHYSICAL EXAM: VITAL SIGNS: Reviewed GENERAL: Well-developed in no acute distress. HEENT: No sclera icterus. Extraocular movements grossly intact. Moist buccal mucosa. Head is atraumatic, normocephalic. Hears conversational speech. No nasal drainage. NECK: Supple without lymphadenopathy. CHEST: Non-labored respirations and equal bilateral excursions. CARDIOVASCULAR: Regular rate with regular rhythm. Palpable 2+ radial pulses. ABDOMEN: Soft. Nondistended. NG to LIS with bilious drainage. Ostomy noted. PREVENA wound vac to midline incision. CLAUDINE with serosanguineous drainage MUSCULOSKELETAL: No clubbing or cyanosis. NEUROLOGIC: No focal or lateralizing signs. Cranial nerves II through XII grossly intact. PSYCH: Appropriate affect. Alert and oriented to person, place and time. SKIN: Well perfused. Good skin turgor. ASSESSMENT: 1. Small bowel obstruction, large bowel obstruction, diffuse metastatic mesenteric disease 2. Metastatic breast cancer PLAN: -Pain control. Discontinue Fentanyl DEVULCANIZER OPERATOR. Resume home pain medications. If pain uncontrolled with home dose of narcotics, patient may have Dilaudid PRN -May discontinue NG tube -Continue NPO -Activity as tolerated -Incentive spirometer Nurse practitioner note has been reviewed by physician. Signing provider agrees with the documented findings, assessment, and plan of care. Objective - Vital Signs Vital signs: Vital Signs Temp 97.3 F L 12/02/19 04:32 Pulse 118 H 12/02/19 08:26 Resp 22 12/02/19 04:32 BP 108/55 12/02/19 08:26 Pulse Ox 90 L 12/02/19 08:26 Intake & Output 12/01/19 12/02/19 12/02/19 18:59 06:59 18:59 Intake Total 1800 275 Output Total 250 1850 60 Balance 1550 -1575 -60 Weight 40.9 kg Intake: IV 1800 275 Output: Drainage 50 60 Right Abdomen 50 60 Urine 1800 Uretheral (Mandujano) 900 Estimated Blood Loss 250 Other: Voiding Method Bedside Commode Indwelling Catheter Indwelling Catheter - Labs CBC & Chem 7: 12/02/19 07:25 12/02/19 07:25 Labs: Abnormal Lab Results - Last 24 Hours (Table) 12/01/19 12/01/19 12/01/19 Range/Units 12:18 20:07 23:43 WBC (3.8-10.6) k/uL RBC (3.80-5.40) m/uL Hgb (11.4-16.0) gm/dL Hct (34.0-46.0) % RDW (11.5-15.5) % Plt Count (150-450) k/uL Neutrophils # (1.3-7.7) k/uL Lymphocytes # (1.0-4.8) k/uL Sodium (137-145) mmol/L Creatinine (0.52-1.04) mg/dL Glucose (74-99) mg/dL POC Glucose (mg/dL) 124 H 123 H 119 H (75-99) mg/dL Calcium (8.4-10.2) mg/dL 12/02/19 12/02/19 12/02/19 Range/Units 06:02 07:25 07:25 WBC 23.8 H (3.8-10.6) k/uL RBC 2.98 L (3.80-5.40) m/uL Hgb 9.0 L (11.4-16.0) gm/dL Hct 28.5 L (34.0-46.0) % RDW 18.9 H (11.5-15.5) % Plt Count 472 H (150-450) k/uL Neutrophils # 22.9 H (1.3-7.7) k/uL Lymphocytes # 0.3 L (1.0-4.8) k/uL Sodium 131 L (137-145) mmol/L Creatinine 0.27 L (0.52-1.04) mg/dL Glucose 103 H (74-99) mg/dL POC Glucose (mg/dL) 126 H (75-99) mg/dL Calcium 7.0 L (8.4-10.2) mg/dL
[2019-12-02 12:38] LABS: Glucose,Whole Blood 129 mg/dL (75-99)
[2019-12-02] MEDS: 1: MVI, ADULT NO.4 WITH VIT K 10 ML, TRACE (CONC-1ML/DOSE) 1 ML, SODIUM CHLORIDE 2.5MEQ/ IV SCH ×5 (13:26)
[2019-12-02] MEDS: POTASSIUM CHLORIDE 10 MEQ in WATER FOR INJECTION 1 100ML.BAG IVPB SCH ×2 (13:26→17:33)
[2019-12-02] MEDS: MAGNESIUM SULFATE-D5W PMX 1 GM in DEXTROSE/WATER 1 100ML.BAG IVPB SCH ×2 (13:26→16:09)
[2019-12-02 18:02] LABS: Glucose,Whole Blood 110 mg/dL (75-99)
[2019-12-02] MEDS: ZOLPIDEM 5 MG TAB PO SCH (22:07)
[2019-12-02] MEDS: ALPRAZolam 0.5 MG TAB PO PRN (22:49)
--- NOTE | 2019-12-02 23:05 | PN ---
PROGRESS NOTE DATE OF SERVICE: 12/02/2019 REASON FOR FOLLOWUP: Abdominal infection. INTERVAL HISTORY: Patient is currently afebrile. The patient is currently breathing comfortably. Patient denies having any chest pain. No shortness of breath or cough. Abdominal pain is currently controlled. Some nausea but no vomiting. No output in the ostomy. On examination, blood pressure 143/72 with a pulse of 110. Temperature 98.7. She is 92% on room air. General description is an elderly female lying in bed in no distress. Respiratory system: Unlabored breathing. Clear to auscultation anteriorly. Heart S1, S2. Regular rate and rhythm. Abdomen soft, mildly tender. No guarding. No rigidity. LABS: Hemoglobin is 9 with white count up to 23.8. BUN of 13, creatinine 0.27. DIAGNOSTIC IMPRESSION AND PLAN: Patient admitted to the hospital with febrile neutropenia post abdominal in this patient that did have significant abdominal obstruction from metastasis disease, status post laparotomy and subtotal colectomy with diverting ileostomy. The patient did have significant jump in the white count post surgery, more likely reactive and we will monitor closely. Continue cefepime Flagyl and continue supportive care. MMODL / IJN: [id number] /
[2019-12-03 00:27] LABS: Glucose,Whole Blood 90 mg/dL (75-99)
[2019-12-03] MEDS: INSULIN ASPART (NovoLOG) 100 UNIT/ML VIAL SQ SCH ×4 (00:30→17:07)
[2019-12-03] MEDS: metroNIDAZOLE-NS PMX 500 MG in SALINE 1 100ML.BAG IVPB SCH ×3 (01:01→16:42)
[2019-12-03] MEDS: HYDROmorphone 1 MG/ML 1 ML SYRINGE IVP PRN ×10 (01:31→22:26)
[2019-12-03] MEDS: ALPRAZolam 0.5 MG TAB PO PRN ×2 (05:52→22:26)
[2019-12-03 06:43] LABS: African American GFR (CKD) >90 (>60 ml/min/1.73 sqM); Anion Gap 4 mmol/L; Blood Urea Nitrogen 13 mg/dL (7-17); Calcium 7.6 mg/dL (8.4-10.2); Carbon Dioxide 23 mmol/L (22-30); Chloride 106 mmol/L (98-107); Glucose 73 mg/dL (74-99); Magnesium 1.9 mg/dL (1.6-2.3); Non-African American GFR(CKD) >90 (>60 ml/min/1.73 sqM); Potassium 4.1 mmol/L (3.5-5.1); Sodium 133 mmol/L (137-145)
[2019-12-03 06:48] LABS: Glucose,Whole Blood 108 mg/dL (75-99)
[2019-12-03] MEDS: PANTOPRAZOLE 40 MG/10 ML VIAL IVP SCH (08:46)
[2019-12-03] MEDS: HEPARIN SODIUM,PORCINE 5,000 UNIT/ML 1 ML VIAL SQ SCH ×2 (08:46→20:25)
[2019-12-03] MEDS: CEFEPIME 2 GM in SODIUM CHLORIDE 0.9% 100 ML IVPB SCH ×2 (08:51→20:26)
[2019-12-03] MEDS: SODIUM CHLORIDE TAB 1 GM TAB PO SCH ×3 (08:57→22:26)
[2019-12-03] MEDS: GABAPENTIN 300 MG CAP PO SCH ×3 (08:57→22:26)
[2019-12-03] MEDS: DOCUSATE 100 MG CAP PO SCH ×2 (08:57→20:25)
[2019-12-03] MEDS: SODIUM CHLORIDE 0.9% 1,000 ML IV SCH ×3 (08:58→21:30)
[2019-12-03] MEDS: LACTATED RINGERS 1,000 ML IV SCH (09:07)
--- NOTE | 2019-12-03 09:17 | P.PN ---
Subjective From a course: Patient is 69-year-old female with a known history of metastatic left breast cancer with mets to colon, SIADH, subclinical hypothyroidism, moderate protein calorie moderation, anxiety initially presented to ER at [facility] with complaints of persistent diarrhea and nausea. Denies any episodes of vomiting. Denies any severe abdominal discomfort. Patient does have metastatic lesions in the colon. Patient is currently receiving chemotherapy last time about 1 week ago with a Mediport. Initially denied any complaints of fever or chills. No complaints of chest pain. No cough or sputum production. No leg swelling. Denied any dysuria or hematuria. Patient was found to be neutropenic and hyponatremia with sodium level 126. CT of the abdomen pelvis showed colonic wall thickening felt to be related to her metastasis. There was a small amount of ascites noted with a question of peritoneal implants, there was small urothelial thickening and questionable for possible urinary tract infection. And small bilateral pleural effusions were noted. Patient became febrile this afternoon with T-max of 101.3 Laboratory data showed WBC of 0.9, hemoglobin 10.6 and platelets 255 Sodium level is 126 Chloride 97, bicarb is 21 BUN 12 and creatinine 0.43 Calcium 8.0 Albumin 3.0 Coronavirus not detected. Urinalysis showed cloudy, nitrite positive and large leukocyte esterase with WBC 7 11/19/2019 Patient is currently lying in the bed, feeling very weak. Patient was febrile yesterday and septic work-up was done. Patient was found to have urinary tract infection and also due to neutropenia patient was started broad-spectrum antibiotics and ID was consulted. Currently patient is on vancomycin and cefepime. Afebrile now. Potassium is 2.9 which is being replaced and magnesium as well. CT of the abdomen pelvis was ordered due to complaints of abdominal pain mainly in the lower region. No complaints of diarrhea now. No headache or dizziness. No chest pain or shortness of breath. 11/20/2019 Patient is currently lying in the bed comfortably. Afebrile overnight. Currently being continued on broad-spectrum antibiotics in the form of vancomycin and cefepime. ID is following. Urine culture is pending. Otherwise patient denied any chest pain or shortness breath. Patient still having abdominal discomfort and CT of the abdomen pelvis was ordered yesterday which showed small bowel dilatation up to 3 cm with air-fluid levels. Small bowel obstruction suggested. Patient was placed on NG tube and diet change to nothing by mouth. General surgery was consulted. Patient will be continued on IV hydration. Subjective, this is the first day I take care of the patient 11/21/2019 This is a pleasant lady who was admitted on 11/16 for diarrhea, she came from [facility]. She found to have febrile neutropenia, bowel obstruction and UTI. Patient is been evaluated by several consults INCLUDING infectious disease, surgery and oncology. She has history of metastatic left breast cancer to bone on possible to: On peritoneal she got chemotherapy about one week earlier. She's been treated currently on cefepime and IV Flagyl, also she is on normal saline at 90 mL/h. She has increased tumor markers of CAD 15-30 into Efren and CA 27-29, CT of the abdomen showing bowel obstruction. And urine culture came back positive for staph aureus, patient received therapy before with IV vancomycin, we'll going to check with ID team if she is going to need more therapy. She feels generally weak, she still nothing by mouth, with no vomiting, NG tube is in place with little or no secretions. She has. Umbilical abdominal pain and tenderness, she was passing gases and have bowel movement the night before yesterday as per patient Blood pressure on the low-normal signed 94/69 and reversal vitals are stable. WBC went up to 19.4 K, sodium 1:30, creatinine 0.3. Magnesium 1.5 11/22/2019 Patient is alert and awake. She still complaining from abdominal pain and tenderness, she is tolerating only a little of her liquid diet although there is no vomiting and she has normal bowel movement and passing only gases. Her abdomen looks distended and she has tenderness in the upper part of the abdomen Patient feels weak has had difficulty getting up and moving around Blood pressure low-normal 99/67, still have leukocytosis of 19.4 K, hemoglobin 9.4. Sodium 129, creatinine normal, potassium of 3.3 Surgery team on the case and the recommended colonoscopy at certain point., Patient informed and she agrees with this recommendation.. Selective for and is negative. Low TIBC suggestive of anemia of chronic disease. Patient is already on 3 antibiotics with cefepime, Flagyl and IV vancomycin for her intra-abdominal infection and UTI.. She still in normal saline at 90 mL/h Last for physical therapy evaluation 11/23/2019 Patient management comfortable not in distress, she did not eat follow-up of diabetes and day, she is trying to eat more today, she still on liquid diet however her abdominal pain around the periumbilical since same with tenderness but no rebound tenderness. No nausea vomiting however last night she has loose bowel movement as well as she is passing gas. She stent in bed most of the time and physical therapy is consulted. No urinary symptoms like no dysuria or change in frequency, staff in the urine is colonization and no need for vancomycin which was stopped by ID team Blood pressure is stable at 105/72, fever subsided. The loose is coming down to 15.1 K, on sodium is up to 131. 11/24/2019 The patient sitting in chair, not in distress. Patient denies chest pain or dyspnea. However she is not eating well while she is on liquid diet, she still have some abdominal pain, no bowel movement or passing gases yesterday. Patient was started on bowel regiment by surgery team Surgical team are planning for patient to go for colonoscopy on Thursday11/25/2019 Patient is lying in bed comfortable not in distress. She is not eating, she got suppository followed by loose bowel movement, no vomiting abdominal pain is controlled. She is started on TPN and she is tolerating that well Left upper extremity ultrasound is negative for DVT Planned for coloscopy on Thursday11/26/2019 Patient is clinically similar to yesterday, she is not eating while she is on TPN. No vomiting abdominal pain is controlled she has no bowel movement despite of several bowel preparations. CBC, BMP, magnesium and phosphorus are unremarkable We will keep to follow up 11/27/2019 pt is awake, no distress, she is being prepared with bowel regiments and golytly for colonoscopy tomorrow and she is having several bowel movements , no wor sening abd pain , not eating much and she is on TPN. she has swelling in her extremites both upper and lower and normal saline was discontinued and give one dose of lasix vitals are stable, labs are reviewed ,her sodium today is 129, creatinine is normal at 0.3 she is on cefepime and flagyl as well 11/28/2019 Patient is awake and alert, no other new complaint. Patient underwent colonoscopy today and found to have to splenic flexure with thickened mucosal wall and near obstruction, biopsy was taken and results are pending Recommended to continue with clear liquid diet. However patient does not have appetite and she still on TPN. Abdominal looks soft. No nausea vomiting. Vital signs stable and sodium is 128, we'll sodium chloride tablets. WBCs back to normal today at 10.2 K. Hemoglobin is 8.8. Patient continue on cefepime and Flagyl. IV fluids were stopped 11/29/2019 Patient still feeling generally weak however she is awake and alert. No distress. She was placed on clear liquid diet after the colonoscopy done yesterday showing narrowing of the splenic flexure with mucosal thickening. However patient is consuming a lot of her diet because of low appetite and nausea. Continue with Zofran. Abdominal pain is minimal. She still has bilateral leg edema Vitals are stable.Sodium is 128, creatinine normal, sugar control. She continue on cefepime and IV Flagyl. Normal saline was discontinued and she is on TPN.: Biopsy is pending. Patient has been told she will need a second procedure or surgery, we'll follow recommendation by the surgical team 11/30/2019 Patient is awake, comfortable not in distress. No much abdominal pain today, her leg swelling is coming down. Vitals are stable. Sodium improved to 130 Patient is planned for exploratory laparotomy with creation of colostomy tomorrow. Patient is aware Patient at some risk from the surgery however there is no absolute contraindication 12/01/2019 Patient comfortable in bed, she had some abdominal pain this morning or she got pain medication. No chest pain or dyspnea. She is breathing quietly. Vitals are stable, Her sodium is 130, stable. Patient continue on antibiotics and TPN. Patient expected to go for surgery for diverting colostomy with Dr. Curtis today about 1 PM. Patient is still in the she agrees to the surgery and she signed a consent already with surgery team. We will keep to follow 12/02/2019 Patient had extensive surgery yesterday she status post expiratory laparotomy found to have large bowel obstruction with metastatic breast cancer and diffuse metastatic mesentery, , Status post subtotal colectomy and resection of the small bowel and end ileostomy. She hasa drain, and wound VAC in the middle and empty ileostomy back on the right lower abdomen. Patient had a rough night with significant pain. Surgery team or the case. Patient is currently on fentanyl, MRI appears to be given advanced through the vein with fentanyl. Patient might benefit from upgrading her pain medication and/or anesthesia consult for pain management. She received IV bolus last night for low blood pressure and currently her blood pressure is better this morningat 118/57. No fever, she is tachycardic when 18-122, probably due to pain. There is a vitals are stable. The anemic for surgery which is expected and hemoglobin 8.8, WBC 6.6K. She still on cefepime and IV Flagyl. She is on TPN and fentanyl patch. Mandujano catheter is in place. Oncology team on the case and follow the recommendation 12/03/2019 Patient is awake and alert, still have NG tube was some bile discharge. She is nothing by mouth. She still have the drain and the colostomy bag is empty with no bowel movement or gas. Her fentanyl drip was discontinued yesterday by surgery team and placed on fentanyl patch and Dilaudid 1 mg every 3 hours, patient states that her Dilaudid last only for 2 hours, her blood pressure is stable and can be increased to every 2 hours. Course patient is aware of her metastatic disease is extensive she wants to proceed with hospice, she she wants to talk to palliative care consult which is ordered, however oncology team on the case and will follow the recommendation as well. Patient states that she lives alone and that she called her brother and let us know about her decision for hospice. Objective - Vital Signs Vital signs: Vital Signs Temp 98 F 12/03/19 04:53 Pulse 111 H 12/03/19 04:53 Resp 22 12/03/19 04:53 BP 122/60 12/03/19 04:53 Pulse Ox 92 L 12/03/19 04:53 Intake & Output 12/02/19 12/03/19 12/03/19 18:59 06:59 18:59 Output Total 1080 1480 Balance -1080 -1480 Weight 40.9 kg Output: Gastric Drainage 850 Drainage 80 230 Right Abdomen 80 230 Urine 1000 400 Uretheral (Mandujano) 400 Other: Voiding Method Indwelling Catheter Indwelling Catheter - Exam GENERAL: The patient is alert and oriented x3, not in any acute distress. Well developed, well nourished. HEENT: Pupils are round and equally reacting to light. EOMI. No scleral icterus. No conjunctival pallor. Normocephalic, atraumatic. No pharyngeal erythema. No thyromegaly. CARDIOVASCULAR: S1 and S2 present. No murmurs, rubs, or gallops. PULMONARY: Chest is clear to auscultation, no wheezing or crackles. -ABDOMEN: Soft, periumbilical tenderness, slightly distended, normoactive bowel sounds. No palpable organomegaly. NG tube is in a Place MUSCULOSKELETAL: No joint swelling or deformity. EXTREMITIES: No cyanosis, clubbing, or pedal edema. NEUROLOGICAL: Gross neurological examination did not reveal any focal deficits. SKIN: No rashes. no petechiae. - Labs CBC & Chem 7: 12/02/19 07:25 12/03/19 06:20 Labs: Abnormal Lab Results - Last 24 Hours (Table) 12/02/19 12/02/19 12/03/19 Range/Units 12:32 18:00 06:20 Sodium 133 L (137-145) mmol/L Creatinine 0.28 L (0.52-1.04) mg/dL Glucose 73 L (74-99) mg/dL POC Glucose (mg/dL) 129 H 110 H (75-99) mg/dL Calcium 7.6 L (8.4-10.2) mg/dL 12/03/19 Range/Units 06:37 Sodium (137-145) mmol/L Creatinine (0.52-1.04) mg/dL Glucose (74-99) mg/dL POC Glucose (mg/dL) 108 H (75-99) mg/dL Calcium (8.4-10.2) mg/dL Assessment and Plan Assessment: Large bowel obstruction and diffuse metastatic mesentery secondary to breast cancer status post subtotal colectomy and small bowel resection and end ileostomy Febrile neutropenia, improved Acute diarrhea along with nausea due to chemotheraphy. Improved Bicytopenia due to chemotherapy. Improved and growth factors is stopped Hyponatremia likely hypoosmolar. Metastatic breast cancer with mets to colon and peritoneum. Currently on chemot herapy 1 week prior to admission Chronic back pain with compression fracture at T7 History of SIADH Hydronephrosis Subclinical hypothyroidism Right carpal tunnel syndrome History of bowel obstruction Anxiety Moderate protein calorie malnutrition Plan: This is a pleasant 69 years old female who presents with small bowel obstruction, with metastatic breast cancer status post surgery as above. Surgical team are following the case closely, patient she still been uncontrol led, we'll refer to surgery team for pain management, palliative care consult upon patient request , surgery and oncology service. Continue with antibiotics as per ID team recommendation. Continue with IV fluids. Continue with TPN. Labs and medication were reviewed.. Continue same treatment. Continue with symptomatic treatment. Resume home medication. Monitor lytes and vitals. DVT and GI prophylaxis. Further recommendations of the clinical course of the patient DVT prophylaxis: Subcutaneous heparin GI Prophylaxis: Ppi Prognosis is guarded
[2019-12-03] MEDS: FAT EMULSION 20% 250 ML IV SCH (11:05)
[2019-12-03 11:26] LABS: Glucose,Whole Blood 129 mg/dL (75-99)
[2019-12-03 12:09] LABS: Anisocytosis Slight; Basophils % (A) 0 %; Eosinophils # (A) 0.4 k/uL (0-0.7); Eosinophils % (A) 2 %; HCT 25.8 % (34.0-46.0); Hypochromasia Marked; Lymphocytes # (A) 0.7 k/uL (1.0-4.8); Lymphocytes % (A) 3 %; MCH 30.6 pg (25.0-35.0); MCHC 31.1 g/dL (31.0-37.0); MCV 98.4 fL (80.0-100.0); Macrocytosis Moderate; Mean Platelet Volume 8.7; Monocytes # (A) 0.7 k/uL (0-1.0); Monocytes % (A) 4 %; Neutrophils # (A) 18.3 k/uL (1.3-7.7); Neutrophils % (A) 91 %; Platelet Count 446 k/uL (150-450); RBC 2.62 m/uL (3.80-5.40); RDW 19.3 % (11.5-15.5); WBC 20.2 k/uL (3.8-10.6)
--- NOTE | 2019-12-03 13:13 | P.PN ---
Subjective Progress Note Date: 12/03/19 CHIEF COMPLAINT: Metastatic breast cancer HISTORY OF PRESENT ILLNESS: The patient is a 69 year-old female status post subtotal colectomy including small bowel resection 3 for large and small bowel obstruction, 12/01/19. She is postoperative day 2. Patient reports she wants hospice as she has aggressive metastatic disease including intra-abdominal progression. She has complex pain med needs improved after restarting her home meds. She reports thirst. ROS: No reports of nausea and vomiting. No bowel movements. No fevers or chills. No new chest pain. No productive sputum PHYSICAL EXAM: VITAL SIGNS: Reviewed CONSTITUTIONAL: Well developed and in no acute distress. EYES: Conjuctivae without sclera icterus. Extraocular movements grossly intact. HEAD, EARS, NOSE, THROAT: Moist buccal mucosa. Head is atraumatic, normocephalic. Hears conversational speech. No nasal drainage. NECK: Supple. No thyroidomegaly. RESPIRATORY: Non-labored respirations and equal bilateral excursions. CARDIOVASCULAR: Palpable 2+ radial pulses. ABDOMEN: Incisions clean dry and intact. Soft. No peritonitis. Ostomy pink patent with fluid in ostomy bag MUSCULOSKELETAL: No gross deformity of the lower extremities noted. No clubbing. No cyanosis. SKIN: Good skin turgor. Well perfused. NEUROLOGIC: Cranial nerves II through XII grossly intact. No focal or lateralizing signs. PSYCH: Appropriate affect. Alert and oriented to person, place and time. CLINICAL LABS: White blood cell count decreased from 23.8-20.2 ASSESSMENT: 1. Metastatic breast cancer to colon, with small and large bowel obstruction 2. Status post small bowel obstruction with small bowel resection 3. Status post large bowel resection involving transverse colon PLAN: 1. We'll adjust pain meds. 2. May start diet. 3. Discontinue Mandujano catheter including nasogastric tube. Objective - Vital Signs Vital signs: Vital Signs Temp 97.5 F L 12/03/19 11:15 Pulse 120 H 12/03/19 11:15 Resp 20 12/03/19 11:15 BP 144/86 12/03/19 11:15 Pulse Ox 98 12/03/19 11:15 Intake & Output 12/02/19 12/03/19 12/03/19 18:59 06:59 18:59 Output Total 1080 1480 70 Balance -1080 -1480 -70 Weight 40.9 kg Output: Gastric Drainage 850 Drainage 80 230 70 Right Abdomen 80 230 70 Urine 1000 400 Uretheral (Mandujano) 400 Other: Voiding Method Indwelling Catheter Indwelling Catheter Indwelling Catheter - Labs CBC & Chem 7: 12/03/19 06:20 12/03/19 06:20 Labs: Abnormal Lab Results - Last 24 Hours (Table) 12/02/19 12/03/19 12/03/19 Range/Units 18:00 06:20 06:20 WBC 20.2 H (3.8-10.6) k/uL RBC 2.62 L (3.80-5.40) m/uL Hgb 8.0 L (11.4-16.0) gm/dL Hct 25.8 L (34.0-46.0) % RDW 19.3 H (11.5-15.5) % Neutrophils # 18.3 H (1.3-7.7) k/uL Lymphocytes # 0.7 L (1.0-4.8) k/uL Sodium 133 L (137-145) mmol/L Creatinine 0.28 L (0.52-1.04) mg/dL Glucose 73 L (74-99) mg/dL POC Glucose (mg/dL) 110 H (75-99) mg/dL Calcium 7.6 L (8.4-10.2) mg/dL 12/03/19 12/03/19 Range/Units 06:37 11:18 WBC (3.8-10.6) k/uL RBC (3.80-5.40) m/uL Hgb (11.4-16.0) gm/dL Hct (34.0-46.0) % RDW (11.5-15.5) % Neutrophils # (1.3-7.7) k/uL Lymphocytes # (1.0-4.8) k/uL Sodium (137-145) mmol/L Creatinine (0.52-1.04) mg/dL Glucose (74-99) mg/dL POC Glucose (mg/dL) 108 H 129 H (75-99) mg/dL Calcium (8.4-10.2) mg/dL Assessment and Plan (1) Breast cancer metastasized to large intestine Current Visit: Yes Status: Acute Code(s): C50.919 - MALIGNANT NEOPLASM OF UNSP SITE OF UNSPECIFIED FEMALE BREAST; C78.5 - SECONDARY MALIGNANT NEOPLASM OF LARGE INTESTINE AND RECTUM SNOMED Code(s): 671026307 (2) Large bowel obstruction Current Visit: Yes Status: Acute Code(s): K56.609 - UNSP INTESTNL OBST, UNSP TO PARTIAL VERSUS COMPLETE OBST SNOMED Code(s): 841312136 (3) Chronic pain syndrome Current Visit: Yes Status: Acute Code(s): G89.4 - CHRONIC PAIN SYNDROME SNOMED Code(s): 987176780 (4) Hyponatremia Current Visit: Yes Status: Acute Code(s): E87.1 - HYPO-OSMOLALITY AND HYPONATREMIA SNOMED Code(s): 71893601 (5) Metastatic breast cancer Current Visit: Yes Status: Chronic Priority: High Code(s): C50.919 - MALIGNANT NEOPLASM OF UNSP SITE OF UNSPECIFIED FEMALE BREAST SNOMED Code(s): 052832610 (6) Cancer related pain Current Visit: No Status: Acute Priority: High Code(s): G89.3 - NEOPLASM RELATED PAIN (ACUTE) (CHRONIC) SNOMED Code(s): 57061514827643 (7) Severe protein-calorie malnutrition Current Visit: No Status: Acute Code(s): E43 - UNSPECIFIED SEVERE PROTEIN- CALORIE MALNUTRITION SNOMED Code(s): 867402456 (8) Small bowel obstruction Current Visit: No Status: Acute Code(s): K56.609 - UNSP INTESTNL OBST, UNSP TO PARTIAL VERSUS COMPLETE OBST SNOMED Code(s): 701701524
[2019-12-03] MEDS: 1: MVI, ADULT NO.4 WITH VIT K 10 ML, TRACE (CONC-1ML/DOSE) 1 ML, SODIUM CHLORIDE 2.5MEQ/ IV SCH ×10 (16:21→23:21)
[2019-12-03 16:58] LABS: Glucose,Whole Blood 101 mg/dL (75-99)
[2019-12-03] MEDS: ZOLPIDEM 5 MG TAB PO SCH (22:26)
--- NOTE | 2019-12-03 23:09 | PN ---
PROGRESS NOTE DATE OF SERVICE: 12/03/2019 REASON FOR FOLLOWUP: Abdominal infection. INTERVAL HISTORY: Patient is currently afebrile. The patient is breathing comfortably. The patient still has the NG, has been complaining of abdominal discomfort. No chest pain, shortness of breath or cough. On examination, blood pressure 140/67 with a pulse of 120. Temperature 98.6. He is 93% on 3 L nasal cannula. General description is an elderly female lying in bed in no distress. Respiratory system: Unlabored breathing, clear to auscultation anteriorly. Heart S1, S2. Regular rate and rhythm. Abdomen soft. Mildly distended. No guarding. No rigidity. LABS: White count down to 20,000. DIAGNOSTIC IMPRESSION/PLAN: The patient admitted to the hospital with febrile neutropenia, did have abdominal source significant dilatation of the cecum and bowel ileus, noticed to have metastatic disease to the status post total colectomy and ileostomy. Did have significant jump in the white count post surgery though has slightly downward trend. Continue with cefepime and Flagyl. Monitor clinical course closely. MMODL / IJN: [id number] /
[2019-12-04 00:15] LABS: Glucose,Whole Blood 101 mg/dL (75-99)
[2019-12-04] MEDS: metroNIDAZOLE-NS PMX 500 MG in SALINE 1 100ML.BAG IVPB SCH ×3 (00:56→17:55)
[2019-12-04] MEDS: INSULIN ASPART (NovoLOG) 100 UNIT/ML VIAL SQ SCH ×4 (00:58→17:16)
[2019-12-04] MEDS: HYDROmorphone 1 MG/ML 1 ML SYRINGE IVP PRN ×6 (04:12→17:08)
[2019-12-04 06:03] LABS: Glucose,Whole Blood 118 mg/dL (75-99)
[2019-12-04] MEDS: ALPRAZolam 0.5 MG TAB PO PRN (06:10)
[2019-12-04 06:11] LABS: Anisocytosis Slight; Basophils % (A) 0 %; Eosinophils # (A) 0.8 k/uL (0-0.7); Eosinophils % (A) 6 %; HCT 22.6 % (34.0-46.0); Hypochromasia Marked; Lymphocytes # (A) 0.7 k/uL (1.0-4.8); Lymphocytes % (A) 5 %; MCH 30.2 pg (25.0-35.0); MCHC 31.1 g/dL (31.0-37.0); MCV 97.1 fL (80.0-100.0); Macrocytosis Slight; Mean Platelet Volume 7.5; Monocytes # (A) 0.7 k/uL (0-1.0); Monocytes % (A) 5 %; Neutrophils # (A) 11.4 k/uL (1.3-7.7); Neutrophils % (A) 83 %; Platelet Count 381 k/uL (150-450); RBC 2.33 m/uL (3.80-5.40); RDW 18.7 % (11.5-15.5); WBC 13.8 k/uL (3.8-10.6)
[2019-12-04 06:19] LABS: African American GFR (CKD) >90 (>60 ml/min/1.73 sqM); Anion Gap 3 mmol/L; Blood Urea Nitrogen 14 mg/dL (7-17); Calcium 7.6 mg/dL (8.4-10.2); Carbon Dioxide 24 mmol/L (22-30); Chloride 108 mmol/L (98-107); Glucose 105 mg/dL (74-99); Magnesium 1.7 mg/dL (1.6-2.3); Non-African American GFR(CKD) >90 (>60 ml/min/1.73 sqM); Potassium 3.5 mmol/L (3.5-5.1); Sodium 135 mmol/L (137-145)
[2019-12-04] MEDS ORDERED: 1: MVI, ADULT NO.4 WITH VIT K 10 ML, TRACE (CONC-1ML/DOSE) 1 ML, SODIUM CHLORIDE 2.5MEQ/ IV SCH ×5 (07:00)
[2019-12-04] MEDS: POTASSIUM CHLORIDE 10 MEQ in WATER FOR INJECTION 1 100ML.BAG IVPB SCH ×4 (07:05→12:57)
[2019-12-04] MEDS: MAGNESIUM SULFATE-D5W PMX 1 GM in DEXTROSE/WATER 1 100ML.BAG IVPB SCH ×2 (07:10→10:05)
--- NOTE | 2019-12-04 08:17 | P.PN ---
Subjective From a course: Patient is 69-year-old female with a known history of metastatic left breast cancer with mets to colon, SIADH, subclinical hypothyroidism, moderate protein calorie moderation, anxiety initially presented to ER at [facility] with complaints of persistent diarrhea and nausea. Denies any episodes of vomiting. Denies any severe abdominal discomfort. Patient does have metastatic lesions in the colon. Patient is currently receiving chemotherapy last time about 1 week ago with a Mediport. Initially denied any complaints of fever or chills. No complaints of chest pain. No cough or sputum production. No leg swelling. Denied any dysuria or hematuria. Patient was found to be neutropenic and hyponatremia with sodium level 126. CT of the abdomen pelvis showed colonic wall thickening felt to be related to her metastasis. There was a small amount of ascites noted with a question of peritoneal implants, there was small urothelial thickening and questionable for possible urinary tract infection. And small bilateral pleural effusions were noted. Patient became febrile this afternoon with T-max of 101.3 Laboratory data showed WBC of 0.9, hemoglobin 10.6 and platelets 255 Sodium level is 126 Chloride 97, bicarb is 21 BUN 12 and creatinine 0.43 Calcium 8.0 Albumin 3.0 Coronavirus not detected. Urinalysis showed cloudy, nitrite positive and large leukocyte esterase with WBC 7 11/19/2019 Patient is currently lying in the bed, feeling very weak. Patient was febrile yesterday and septic work-up was done. Patient was found to have urinary tract infection and also due to neutropenia patient was started broad-spectrum antibiotics and ID was consulted. Currently patient is on vancomycin and cefepime. Afebrile now. Potassium is 2.9 which is being replaced and magnesium as well. CT of the abdomen pelvis was ordered due to complaints of abdominal pain mainly in the lower region. No complaints of diarrhea now. No headache or dizziness. No chest pain or shortness of breath. 11/20/2019 Patient is currently lying in the bed comfortably. Afebrile overnight. Currently being continued on broad-spectrum antibiotics in the form of vancomycin and cefepime. ID is following. Urine culture is pending. Otherwise patient denied any chest pain or shortness breath. Patient still having abdominal discomfort and CT of the abdomen pelvis was ordered yesterday which showed small bowel dilatation up to 3 cm with air-fluid levels. Small bowel obstruction suggested. Patient was placed on NG tube and diet change to nothing by mouth. General surgery was consulted. Patient will be continued on IV hydration. Subjective, this is the first day I take care of the patient 11/21/2019 This is a pleasant lady who was admitted on 11/16 for diarrhea, she came from [facility]. She found to have febrile neutropenia, bowel obstruction and UTI. Patient is been evaluated by several consults INCLUDING infectious disease, surgery and oncology. She has history of metastatic left breast cancer to bone on possible to: On peritoneal she got chemotherapy about one week earlier. She's been treated currently on cefepime and IV Flagyl, also she is on normal saline at 90 mL/h. She has increased tumor markers of CAD 15-30 into Efren and CA 27-29, CT of the abdomen showing bowel obstruction. And urine culture came back positive for staph aureus, patient received therapy before with IV vancomycin, we'll going to check with ID team if she is going to need more therapy. She feels generally weak, she still nothing by mouth, with no vomiting, NG tube is in place with little or no secretions. She has. Umbilical abdominal pain and tenderness, she was passing gases and have bowel movement the night before yesterday as per patient Blood pressure on the low-normal signed 94/69 and reversal vitals are stable. WBC went up to 19.4 K, sodium 1:30, creatinine 0.3. Magnesium 1.5 11/22/2019 Patient is alert and awake. She still complaining from abdominal pain and tenderness, she is tolerating only a little of her liquid diet although there is no vomiting and she has normal bowel movement and passing only gases. Her abdomen looks distended and she has tenderness in the upper part of the abdomen Patient feels weak has had difficulty getting up and moving around Blood pressure low-normal 99/67, still have leukocytosis of 19.4 K, hemoglobin 9.4. Sodium 129, creatinine normal, potassium of 3.3 Surgery team on the case and the recommended colonoscopy at certain point., Patient informed and she agrees with this recommendation.. Selective for and is negative. Low TIBC suggestive of anemia of chronic disease. Patient is already on 3 antibiotics with cefepime, Flagyl and IV vancomycin for her intra-abdominal infection and UTI.. She still in normal saline at 90 mL/h Last for physical therapy evaluation 11/23/2019 Patient management comfortable not in distress, she did not eat follow-up of diabetes and day, she is trying to eat more today, she still on liquid diet however her abdominal pain around the periumbilical since same with tenderness but no rebound tenderness. No nausea vomiting however last night she has loose bowel movement as well as she is passing gas. She stent in bed most of the time and physical therapy is consulted. No urinary symptoms like no dysuria or change in frequency, staff in the urine is colonization and no need for vancomycin which was stopped by ID team Blood pressure is stable at 105/72, fever subsided. The loose is coming down to 15.1 K, on sodium is up to 131. 11/24/2019 The patient sitting in chair, not in distress. Patient denies chest pain or dyspnea. However she is not eating well while she is on liquid diet, she still have some abdominal pain, no bowel movement or passing gases yesterday. Patient was started on bowel regiment by surgery team Surgical team are planning for patient to go for colonoscopy on Thursday11/25/2019 Patient is lying in bed comfortable not in distress. She is not eating, she got suppository followed by loose bowel movement, no vomiting abdominal pain is controlled. She is started on TPN and she is tolerating that well Left upper extremity ultrasound is negative for DVT Planned for coloscopy on Thursday11/26/2019 Patient is clinically similar to yesterday, she is not eating while she is on TPN. No vomiting abdominal pain is controlled she has no bowel movement despite of several bowel preparations. CBC, BMP, magnesium and phosphorus are unremarkable We will keep to follow up 11/27/2019 pt is awake, no distress, she is being prepared with bowel regiments and golytly for colonoscopy tomorrow and she is having several bowel movements , no wor sening abd pain , not eating much and she is on TPN. she has swelling in her extremites both upper and lower and normal saline was discontinued and give one dose of lasix vitals are stable, labs are reviewed ,her sodium today is 129, creatinine is normal at 0.3 she is on cefepime and flagyl as well 11/28/2019 Patient is awake and alert, no other new complaint. Patient underwent colonoscopy today and found to have to splenic flexure with thickened mucosal wall and near obstruction, biopsy was taken and results are pending Recommended to continue with clear liquid diet. However patient does not have appetite and she still on TPN. Abdominal looks soft. No nausea vomiting. Vital signs stable and sodium is 128, we'll sodium chloride tablets. WBCs back to normal today at 10.2 K. Hemoglobin is 8.8. Patient continue on cefepime and Flagyl. IV fluids were stopped 11/29/2019 Patient still feeling generally weak however she is awake and alert. No distress. She was placed on clear liquid diet after the colonoscopy done yesterday showing narrowing of the splenic flexure with mucosal thickening. However patient is consuming a lot of her diet because of low appetite and nausea. Continue with Zofran. Abdominal pain is minimal. She still has bilateral leg edema Vitals are stable.Sodium is 128, creatinine normal, sugar control. She continue on cefepime and IV Flagyl. Normal saline was discontinued and she is on TPN.: Biopsy is pending. Patient has been told she will need a second procedure or surgery, we'll follow recommendation by the surgical team 11/30/2019 Patient is awake, comfortable not in distress. No much abdominal pain today, her leg swelling is coming down. Vitals are stable. Sodium improved to 130 Patient is planned for exploratory laparotomy with creation of colostomy tomorrow. Patient is aware Patient at some risk from the surgery however there is no absolute contraindication 12/01/2019 Patient comfortable in bed, she had some abdominal pain this morning or she got pain medication. No chest pain or dyspnea. She is breathing quietly. Vitals are stable, Her sodium is 130, stable. Patient continue on antibiotics and TPN. Patient expected to go for surgery for diverting colostomy with Dr. Curtis today about 1 PM. Patient is still in the she agrees to the surgery and she signed a consent already with surgery team. We will keep to follow 12/02/2019 Patient had extensive surgery yesterday she status post expiratory laparotomy found to have large bowel obstruction with metastatic breast cancer and diffuse metastatic mesentery, , Status post subtotal colectomy and resection of the small bowel and end ileostomy. She hasa drain, and wound VAC in the middle and empty ileostomy back on the right lower abdomen. Patient had a rough night with significant pain. Surgery team or the case. Patient is currently on fentanyl, MRI appears to be given advanced through the vein with fentanyl. Patient might benefit from upgrading her pain medication and/or anesthesia consult for pain management. She received IV bolus last night for low blood pressure and currently her blood pressure is better this morningat 118/57. No fever, she is tachycardic when 18-122, probably due to pain. There is a vitals are stable. The anemic for surgery which is expected and hemoglobin 8.8, WBC 6.6K. She still on cefepime and IV Flagyl. She is on TPN and fentanyl patch. Mandujano catheter is in place. Oncology team on the case and follow the recommendation 12/03/2019 Patient is awake and alert, still have NG tube was some bile discharge. She is nothing by mouth. She still have the drain and the colostomy bag is empty with no bowel movement or gas. Her fentanyl drip was discontinued yesterday by surgery team and placed on fentanyl patch and Dilaudid 1 mg every 3 hours, patient states that her Dilaudid last only for 2 hours, her blood pressure is stable and can be increased to every 2 hours. Course patient is aware of her metastatic disease is extensive she wants to proceed with hospice, she she wants to talk to palliative care consult which is ordered, however oncology team on the case and will follow the recommendation as well. Patient states that she lives alone and that she called her brother and let us know about her decision for hospice. 12/04/2019 Patient is alert awake. NG tube to his out. Patient is eating liquid diet and popsicles. Her pain is controlled on Dilaudid 1 mg every 2 hours. She still have some abdominal pain. Ileostomy bag is empty. Patient still wants hospice care, palliative care consult is placed. However we will double check with oncology team about the recommendation regarding this. Discussed with staff Vitals are stable, leukocytosis trending down. BMP is unremarkable Surgery team R following the case closely. Objective - Vital Signs Vital signs: Vital Signs Temp 97.0 F L 12/04/19 05:14 Pulse 118 H 12/04/19 05:14 Resp 20 12/04/19 05:14 BP 141/80 12/04/19 05:14 Pulse Ox 98 12/04/19 05:14 Intake & Output 12/03/19 12/04/19 12/04/19 18:59 06:59 18:59 Output Total 1260 498 Balance -1260 -498 Output: Drainage 160 98 Right Abdomen 160 98 Urine 1100 400 Other: Voiding Method Indwelling Catheter Indwelling Catheter # Voids 2 - Exam GENERAL: The patient is alert and oriented x3, not in any acute distress. Well developed, well nourished. HEENT: Pupils are round and equally reacting to light. EOMI. No scleral icterus. No conjunctival pallor. Normocephalic, atraumatic. No pharyngeal erythema. No thyromegaly. CARDIOVASCULAR: S1 and S2 present. No murmurs, rubs, or gallops. PULMONARY: Chest is clear to auscultation, no wheezing or crackles. -ABDOMEN: Soft, periumbilical tenderness, slightly distended, normoactive bowel sounds. No palpable organomegaly. NG tube is in a Place MUSCULOSKELETAL: No joint swelling or deformity. EXTREMITIES: No cyanosis, clubbing, or pedal edema. NEUROLOGICAL: Gross neurological examination did not reveal any focal deficits. SKIN: No rashes. no petechiae. - Labs CBC & Chem 7: 12/04/19 06:05 12/04/19 06:05 Labs: Abnormal Lab Results - Last 24 Hours (Table) 12/03/19 12/03/19 12/03/19 Range/Units 06:20 11:18 16:57 WBC 20.2 H (3.8-10.6) k/uL RBC 2.62 L (3.80-5.40) m/uL Hgb 8.0 L (11.4-16.0) gm/dL Hct 25.8 L (34.0-46.0) % RDW 19.3 H (11.5-15.5) % Neutrophils # 18.3 H (1.3-7.7) k/uL Lymphocytes # 0.7 L (1.0-4.8) k/uL Eosinophils # (0-0.7) k/uL Sodium (137-145) mmol/L Chloride (98-107) mmol/L Creatinine (0.52-1.04) mg/dL Glucose (74-99) mg/dL POC Glucose (mg/dL) 129 H 101 H (75-99) mg/dL Calcium (8.4-10.2) mg/dL 12/04/19 12/04/19 12/04/19 Range/Units 00:13 05:56 06:05 WBC (3.8-10.6) k/uL RBC (3.80-5.40) m/uL Hgb (11.4-16.0) gm/dL Hct (34.0-46.0) % RDW (11.5-15.5) % Neutrophils # (1.3-7.7) k/uL Lymphocytes # (1.0-4.8) k/uL Eosinophils # (0-0.7) k/uL Sodium 135 L (137-145) mmol/L Chloride 108 H (98-107) mmol/L Creatinine 0.27 L (0.52-1.04) mg/dL Glucose 105 H (74-99) mg/dL POC Glucose (mg/dL) 101 H 118 H (75-99) mg/dL Calcium 7.6 L (8.4-10.2) mg/dL 12/04/19 Range/Units 06:05 WBC 13.8 H (3.8-10.6) k/uL RBC 2.33 L (3.80-5.40) m/uL Hgb 7.0 L (11.4-16.0) gm/dL Hct 22.6 L (34.0-46.0) % RDW 18.7 H (11.5-15.5) % Neutrophils # 11.4 H (1.3-7.7) k/uL Lymphocytes # 0.7 L (1.0-4.8) k/uL Eosinophils # 0.8 H (0-0.7) k/uL Sodium (137-145) mmol/L Chloride (98-107) mmol/L Creatinine (0.52-1.04) mg/dL Glucose (74-99) mg/dL POC Glucose (mg/dL) (75-99) mg/dL Calcium (8.4-10.2) mg/dL Assessment and Plan Assessment: Large bowel obstruction and diffuse metastatic mesentery secondary to breast cancer status post subtotal colectomy and small bowel resection and end ileostomy Febrile neutropenia, improved Acute diarrhea along with nausea due to chemotheraphy. Improved Bicytopenia due to chemotherapy. Improved and growth factors is stopped Hyponatremia likely hypoosmolar. Metastatic breast cancer with mets to colon and peritoneum. Currently on chemotherapy 1 week prior to admission Chronic back pain with compression fracture at T7 History of SIADH Hydronephrosis Subclinical hypothyroidism Right carpal tunnel syndrome History of bowel obstruction Anxiety Moderate protein calorie malnutrition Plan: This is a pleasant 69 years old female who presents with small bowel obstruction, with metastatic breast cancer status post surgery as above. Surgical team are following the case closely, patient she still been uncontrolled, we'll refer to surgery team for pain management, palliative care consult upon patient request , surgery and oncology service. Continue with antibiotics as per ID team recommendation. Continue with IV fluids. Continue with TPN. Labs and medication were reviewed.. Continue same treatment. Continue with symptomatic treatment. Resume home medication. Monitor lytes and vitals. DVT and GI prophylaxis. Further recommendations of the clinical course of the patient DVT prophylaxis: Subcutaneous heparin GI Prophylaxis: Ppi Prognosis is guarded
[2019-12-04] MEDS: CEFEPIME 2 GM in SODIUM CHLORIDE 0.9% 100 ML IVPB SCH (08:59)
[2019-12-04] MEDS: HEPARIN SODIUM,PORCINE 5,000 UNIT/ML 1 ML VIAL SQ SCH (09:00)
[2019-12-04] MEDS: PANTOPRAZOLE 40 MG/10 ML VIAL IVP SCH (09:00)
[2019-12-04] MEDS: GABAPENTIN 300 MG CAP PO SCH ×2 (09:00→17:55)
[2019-12-04] MEDS: DOCUSATE 100 MG CAP PO SCH (09:00)
[2019-12-04] MEDS: LACTATED RINGERS 1,000 ML IV SCH (09:49)
[2019-12-04] MEDS: FAT EMULSION 20% 250 ML IV SCH (10:03)
[2019-12-04] MEDS: SODIUM CHLORIDE TAB 1 GM TAB PO SCH ×2 (10:06→17:55)
[2019-12-04] MEDS ORDERED: FUROSEMIDE 10 MG/ML 2 ML VIAL IV ONE (11:19)
--- NOTE | 2019-12-04 11:19 | P.PN ---
Subjective Progress Note Date: 12/04/19 CHIEF COMPLAINT: Metastatic breast cancer HISTORY OF PRESENT ILLNESS: The patient is a 69 year-old female status post subtotal colectomy including small bowel resection 3 for large and small bowel obstruction, 12/01/19. She is postoperative day 3. She can re-call findings from her surgery including multiple areas of blockage affecting her small and large intestine. She reports difficulty with physical therapy due to pain. She refused to have her harvey removed due to weakness. She is agreeable to blood due to symptomatic anemia. She is looking into hospice. ROS: No reports of nausea and vomiting. No bowel movements. No fevers or chills. No new chest pain. No productive sputum PHYSICAL EXAM: VITAL SIGNS: Reviewed CONSTITUTIONAL: Well developed and in no acute distress. Lethargic EYES: Conjuctivae without sclera icterus. Extraocular movements grossly intact. HEAD, EARS, NOSE, THROAT: Moist buccal mucosa. Head is atraumatic, normocephalic. Hears conversational speech. No nasal drainage. NECK: Supple. No thyroidomegaly. RESPIRATORY: Increased labored respirations and equal bilateral excursions. CARDIOVASCULAR: Palpable 2+ radial pulses. Tachycardic ABDOMEN: Incisions clean dry and intact with PREVENA Soft. No peritonitis. Ileostomy pink patent with fluid in ostomy bag at right lower quadrant. No stool. Non-distended. Appropriate incisional tenderness. CLAUDINE serous than s anguinous. No signs of bleeding. MUSCULOSKELETAL: No gross deformity of the lower extremities noted. No clubbing. No cyanosis. 2+ edema to thigh SKIN: Good skin turgor. Well perfused. NEUROLOGIC: Cranial nerves II through XII grossly intact. No focal or lateralizing signs. PSYCH: Appropriate affect. Alert and oriented to person, place and time. CLINICAL LABS: White blood cell count decreased from 23.8-20.2 now 13.8. Hgb 9.0 to 7.0 also dilutional. ASSESSMENT: 1. Metastatic breast cancer to colon, with small and large bowel obstruction 2. Status post small bowel obstruction with small bowel resection 3. Status post large bowel resection involving transverse colon 4. Symptomatic anemia PLAN: 1. Hgb is low with symptomatic anemia. Blood transfusions described for which she agreed. 2. Ostomy nurse teaching once ileostomy functional 3. Increase to full liquid diet. 4. Pain management adjusted to Dilaudid 2 mg every 2 hrs due to tolerance 5. Palliative care 6. Decrease total IVF to 60 mL/hr 7. Recommend lasix for diffuse edema. Objective - Vital Signs Vital signs: Vital Signs Temp 97.0 F L 12/04/19 05:14 Pulse 118 H 12/04/19 05:14 Resp 20 12/04/19 05:14 BP 141/80 12/04/19 05:14 Pulse Ox 98 12/04/19 05:14 Intake & Output 12/03/19 12/04/19 12/04/19 18:59 06:59 18:59 Output Total 1260 498 Balance -1260 -498 Output: Drainage 160 98 Right Abdomen 160 98 Urine 1100 400 Other: Voiding Method Indwelling Catheter Indwelling Catheter # Voids 2 - Labs CBC & Chem 7: 12/04/19 06:05 12/04/19 06:05 Labs: Abnormal Lab Results - Last 24 Hours (Table) 12/03/19 12/03/19 12/03/19 Range/Units 06:20 11:18 16:57 WBC 20.2 H (3.8-10.6) k/uL RBC 2.62 L (3.80-5.40) m/uL Hgb 8.0 L (11.4-16.0) gm/dL Hct 25.8 L (34.0-46.0) % RDW 19.3 H (11.5-15.5) % Neutrophils # 18.3 H (1.3-7.7) k/uL Lymphocytes # 0.7 L (1.0-4.8) k/uL Eosinophils # (0-0.7) k/uL Sodium (137-145) mmol/L Chloride (98-107) mmol/L Creatinine (0.52-1.04) mg/dL Glucose (74-99) mg/dL POC Glucose (mg/dL) 129 H 101 H (75-99) mg/dL Calcium (8.4-10.2) mg/dL 12/04/19 12/04/19 12/04/19 Range/Units 00:13 05:56 06:05 WBC (3.8-10.6) k/uL RBC (3.80-5.40) m/uL Hgb (11.4-16.0) gm/dL Hct (34.0-46.0) % RDW (11.5-15.5) % Neutrophils # (1.3-7.7) k/uL Lymphocytes # (1.0-4.8) k/uL Eosinophils # (0-0.7) k/uL Sodium 135 L (137-145) mmol/L Chloride 108 H (98-107) mmol/L Creatinine 0.27 L (0.52-1.04) mg/dL Glucose 105 H (74-99) mg/dL POC Glucose (mg/dL) 101 H 118 H (75-99) mg/dL Calcium 7.6 L (8.4-10.2) mg/dL 12/04/19 Range/Units 06:05 WBC 13.8 H (3.8-10.6) k/uL RBC 2.33 L (3.80-5.40) m/uL Hgb 7.0 L (11.4-16.0) gm/dL Hct 22.6 L (34.0-46.0) % RDW 18.7 H (11.5-15.5) % Neutrophils # 11.4 H (1.3-7.7) k/uL Lymphocytes # 0.7 L (1.0-4.8) k/uL Eosinophils # 0.8 H (0-0.7) k/uL Sodium (137-145) mmol/L Chloride (98-107) mmol/L Creatinine (0.52-1.04) mg/dL Glucose (74-99) mg/dL POC Glucose (mg/dL) (75-99) mg/dL Calcium (8.4-10.2) mg/dL Assessment and Plan (1) Breast cancer metastasized to large intestine Current Visit: Yes Status: Acute Code(s): C50.919 - MALIGNANT NEOPLASM OF UNSP SITE OF UNSPECIFIED FEMALE BREAST; C78.5 - SECONDARY MALIGNANT NEOPLASM OF LARGE INTESTINE AND RECTUM SNOMED Code(s): 086637189 (2) Large bowel obstruction Current Visit: Yes Status: Acute Code(s): K56.609 - UNSP INTESTNL OBST, UNSP TO PARTIAL VERSUS COMPLETE OBST SNOMED Code(s): 004621232 (3) Chronic pain syndrome Current Visit: Yes Status: Acute Code(s): G89.4 - CHRONIC PAIN SYNDROME SNOMED Code(s): 065621218 (4) Hyponatremia Current Visit: Yes Status: Acute Code(s): E87.1 - HYPO-OSMOLALITY AND HYPONATREMIA SNOMED Code(s): 59811874 (5) Metastatic breast cancer Current Visit: Yes Status: Chronic Priority: High Code(s): C50.919 - MALIGNANT NEOPLASM OF UNSP SITE OF UNSPECIFIED FEMALE BREAST SNOMED Code(s): 997321999 (6) Cancer related pain Current Visit: No Status: Acute Priority: High Code(s): G89.3 - NEOPLASM RELATED PAIN (ACUTE) (CHRONIC) SNOMED Code(s): 92753321174629 (7) Severe protein-calorie malnutrition Current Visit: No Status: Acute Code(s): E43 - UNSPECIFIED SEVERE PROTEIN- CALORIE MALNUTRITION SNOMED Code(s): 131551474 (8) Small bowel obstruction Current Visit: No Status: Acute Code(s): K56.609 - UNSP INTESTNL OBST, UNSP TO PARTIAL VERSUS COMPLETE OBST SNOMED Code(s): 569526052
[2019-12-04 11:28] LABS: Glucose,Whole Blood 139 mg/dL (75-99)
[2019-12-04 11:50] VITALS: RESP 17; TEMP 98
[2019-12-04] MEDS: SODIUM CHLORIDE 0.9% 1,000 ML IV SCH (12:21)
[2019-12-04 17:16] VITALS: BP 156/94; PULSE 128
[2019-12-04 17:16] LABS: Glucose,Whole Blood 118 mg/dL (75-99)
[2019-12-05] MEDS ORDERED: FUROSEMIDE 10 MG/ML 2 ML VIAL IV SCH (09:00)
--- NOTE | 2019-12-07 15:22 | P.DS ---
Providers Date of admission: 11/17/19 22:35 Attending physician: Tessy Gonzales Consults: 11/17/19 22:52 Consult Physician Urgent Consulting Provider: Bjorn Reeves Consult Reason/Comments: Neutropenia, chemotherapy patient Do you want consulting provider notified?: Already Contacted 11/18/19 17:30 Consult Physician Routine Consulting Provider: Neil Rowe Consult Reason/Comments: NEW ONSET FEVER; LOW WBC; BREAST CANCER WITH METS Do you want consulting provider notified?: Already Contacted 11/20/19 15:38 Consult Physician Urgent Consulting Provider: Salma Downey Consult Reason/Comments: sm bowel obstruction, dilated cecum, hx breast CA with mets to colon Do you want consulting provider notified?: Yes Primary care physician: Demarco Stroud MD Hospital Course: patient was made hospice Patient Condition at Discharge: Fair Plan - Discharge Summary Discharge Rx Participant: No New Discharge Prescriptions: No Action ALPRAZolam [Xanax] 0.5 mg PO HS PRN PRN Reason: Anxiety Zolpidem Tartrate [Ambien Cr] 12.5 mg PO HS #3 tab fentaNYL 75MCG/HR PATCH [Duragesic 75MCG/HR] 75 mcg TRANSDERM Q72H 3 Days #1 patch Morphine Sulfate 15 mg PO Q48H PRN PRN Reason: Pain Albuterol Inhaler [Ventolin Hfa Inhaler] 2 puff INHALATION RT-Q6H PRN PRN Reason: Shortness Of Breath Naproxen Sodium [Aleve] 220 mg PO DAILY PRN PRN Reason: Pain Ondansetron HCl [Zofran] 8 mg PO Q8H PRN PRN Reason: Nausea oxyCODONE HCL [Oxaydo] 5 mg PO Q48H PRN PRN Reason: Pain Atropine Ophth Soln 1% 5Ml [Isopto Atropine 1% 5Ml] 2 drops SUBLINGUAL Q4HR PRN bottle PRN Reason: Excess Secretions Discharge Medication List ALPRAZolam [Xanax] 0.5 mg PO HS PRN 01/02/19 [History] Zolpidem Tartrate [Ambien Cr] 12.5 mg PO HS #3 tab 01/27/19 [Rx] fentaNYL 75MCG/HR PATCH [Duragesic 75MCG/HR] 75 mcg TRANSDERM Q72H 3 Days #1 patch 05/09/19 [Rx] Albuterol Inhaler [Ventolin Hfa Inhaler] 2 puff INHALATION RT-Q6H PRN 11/18/19 [History] Morphine Sulfate 15 mg PO Q48H PRN 11/18/19 [History] Naproxen Sodium [Aleve] 220 mg PO DAILY PRN 11/18/19 [History] Ondansetron HCl [Zofran] 8 mg PO Q8H PRN 11/18/19 [History] oxyCODONE HCL [Oxaydo] 5 mg PO Q48H PRN 11/18/19 [History] Atropine Ophth Soln 1% 5Ml [Isopto Atropine 1% 5Ml] 2 drops SUBLINGUAL Q4HR PRN bottle 12/06/19 [Rx] Follow up Appointment(s)/Referral(s): [facility], [NON-STAFF] - 1-2 Days Demarco Stroud MD [Primary Care Provider] - 1-2 days Activity/Diet/Wound Care/Special Instructions: After hospital Ostomy Care Instructions: Last pouching system change: Discharge Disposition: HOME WITH HOSPICE
--- NOTE | 2019-12-14 22:38 | CDI ---
Documentation Clarification Form Date: 12/15/2019 From: Ezekiel Barone Phone: If you have a question about this query, please contact Sylvie Echols, [employer] at [phone] between 8am and 5pm. Admit Date: 11/17/2019 Discharge Date: 12/04/2019 Patient Name: Darlyn Stewart Visit Number: [id number] ATTENTION: The Clinical Documentation Specialists (CDI) and [facility] Coding Staff appreciate your assistance in clarifying documentation. Please respond to the clarification below the line at the bottom and electronically sign. The CDI & [facility] Coding staff will review the response and follow-up if needed. Please note: Queries are made part of the Legal Health Record. If you have any questions, please contact the author of this message via ITS. Dear Dr Denton Clifford MD., Malnutrition has been documented in your progress notes as " Moderate protein calorie malnutrition". History/Risk Factors: small bowel obstruction, dilated cecum, hx breast CA with mets to colon Labs: Current BMI:19.6, Cachectic Treatment: She is on TPN and fentanyl patch. Supplements: TPN PPN/TPN: TPN Lab monitoring: Albumin 3.0L. 2.0L 12/02 and 12/03 Progress notes by Salma Acevedo MD states "Severe protein- calorie malnutrition". In your professional opinion, can you please clarify if these findings signify one of the following conditions? Moderate Protein-Calorie Malnutrition Severe Protein-Calorie Malnutrition Other condition, please specify Unable to determine Moderate Protein-Calorie Malnutrition MTDD
== END 2019-12-04 17:44 | disposition hospice, home (50) | DRG 330 ==
LOC: EC 21:57 → 6PED 22:35 → EC 11-18 00:14 → 6PED 11-20 18:25 → 5NMEDONC 11-24 19:51
PROVIDERS: ADMIT Hospitalist; ATTEND Hospitalist
PROC: 0DBL8ZX Excision of Transverse Colon, Via Natural or Artificial Opening Endoscopic, Diagnostic (ICD-10-PCS; 2019-11-28)
PROC: 0DBB0ZZ Excision of Ileum, Open Approach (ICD-10-PCS; principal; 2019-12-01 12:30)
PROC: 0DTL0ZZ Resection of Transverse Colon, Open Approach (ICD-10-PCS; principal; 2019-12-01 12:30)
PROC: 0D1B0Z4 Bypass Ileum to Cutaneous, Open Approach (ICD-10-PCS; principal; 2019-12-01 12:30)
PROC: 0WQF0ZZ Repair Abdominal Wall, Open Approach (ICD-10-PCS; principal; 2019-12-01 12:30)
PROC: 0D9670Z Drainage of Stomach with Drainage Device, Via Natural or Artificial Opening (ICD-10-PCS; principal; 2019-12-01 12:30)
PROC: 3E1M38Z Irrigation of Peritoneal Cavity using Irrigating Substance, Percutaneous Approach (ICD-10-PCS; principal; 2019-12-01 12:30)
PROC: 0DTA0ZZ Resection of Jejunum, Open Approach (ICD-10-PCS; principal; 2019-12-01 12:30)
DX: C78.5 Secondary malignant neoplasm of large intestine and rectum (principal); K52.1 Toxic gastroenteritis and colitis; E22.2 Syndrome of inappropriate secretion of antidiuretic hormone; M48.54XA Collapsed vertebra, not elsewhere classified, thoracic region, initial encounter for fracture; C78.6 Secondary malignant neoplasm of retroperitoneum and peritoneum; K56.609 Unspecified intestinal obstruction, unspecified as to partial versus complete obstruction; C79.51 Secondary malignant neoplasm of bone; N13.6 Pyonephrosis; Q43.8 Other specified congenital malformations of intestine; Z68.1 Body mass index [BMI] 19.9 or less, adult; E44.0 Moderate protein-calorie malnutrition; Z51.5 Encounter for palliative care; G56.01 Carpal tunnel syndrome, right upper limb; C50.912 Malignant neoplasm of unspecified site of left female breast; D70.9 Neutropenia, unspecified; F41.1 Generalized anxiety disorder; I25.10 Atherosclerotic heart disease of native coronary artery without angina pectoris; K57.30 Diverticulosis of large intestine without perforation or abscess without bleeding; G89.4 Chronic pain syndrome; R50.81 Fever presenting with conditions classified elsewhere; G89.3 Neoplasm related pain (acute) (chronic); D69.6 Thrombocytopenia, unspecified; D50.9 Iron deficiency anemia, unspecified; K43.2 Incisional hernia without obstruction or gangrene; K64.8 Other hemorrhoids; T45.1X5A Adverse effect of antineoplastic and immunosuppressive drugs, initial encounter; E02 Subclinical iodine-deficiency hypothyroidism; Z11.59 Encounter for screening for other viral diseases; Z90.710 Acquired absence of both cervix and uterus; Z98.42 Cataract extraction status, left eye; Z98.41 Cataract extraction status, right eye; Z79.899 Other long term (current) drug therapy; Z90.49 Acquired absence of other specified parts of digestive tract; Z98.890 Other specified postprocedural states; Z80.1 Family history of malignant neoplasm of trachea, bronchus and lung; Z79.811 Long term (current) use of aromatase inhibitors; Z17.0 Estrogen receptor positive status [ER+]
CPT/HCPCS: 36415; 45380; 71045; 74019; 74022; 74177; 80048; 80053; 80076; 81001; 81003; 82040; 82330; 82607; 82728; 82746; 83540; 83550; 83605; 83615; 83630; 83735; 83921; 84100; 84132; 84478; 85025; 85027; 85045; 85610; 85730; 86300; 86850; 86900; 86901; 86920; 87040; 87045; 87046; 87077; 87086; 87186; 88305; 88307; 88309; 88341; 88342; 93005; 96361; 96374; 96375; 99285

== ENCOUNTER 2019-12-04 17:47 | Inpatient (IN) | payer MEDICAID ==
[2019-12-04] MEDS ORDERED: ACETAMINOPHEN SUPPOSITORY 650 MG SUPP RECTAL PRN (18:10)
[2019-12-04] MEDS ORDERED: ATROPINE OPHTH SOLN 1% 5ML BTL SUBLINGUAL PRN (18:10)
[2019-12-04] MEDS ORDERED: LORazepam 2 MG/ML INJ IV PRN (18:10)
[2019-12-04] MEDS ORDERED: ALPRAZolam 0.5 MG TAB PO PRN (19:07)
[2019-12-04] MEDS: HYDROmorphone 2 MG/ML 1 ML SYRINGE IVP PRN ×2 (19:37→23:44)
[2019-12-04] MEDS: SCOPOLAMINE 1.5MG/72HR PATCH TRANSDERM SCH (19:37)
[2019-12-04] MEDS ORDERED: ZOLPIDEM 5 MG TAB PO SCH (21:00)
[2019-12-05] MEDS ORDERED: ZOLPIDEM 5 MG TAB PO PRN (01:55)
[2019-12-05] MEDS: HYDROmorphone 2 MG/ML 1 ML SYRINGE IVP PRN ×8 (03:46→21:24)
[2019-12-05 04:56] VITALS: PULSE 104; RESP 16
[2019-12-05 11:57] VITALS: BMI 16.6
[2019-12-05] MEDS: ALPRAZolam 0.5 MG TAB PO PRN (12:33)
--- NOTE | 2019-12-05 12:43 | P.HPIM ---
History of Present Illness H&P Date: 12/05/19 This is a 69-year-old female with a known history of metastatic left breast cancer with metastases to the:, SIADH, subclinical hypothyroidism, moderate protein calorie malnutrition, anxiety and was recently transferred from [facility] with complaints of persistent diarrhea nausea and had recently been undergoing chemotherapy treatments. Patient was also found to be neutropenic and hyponatremic upon admission. Patient recently underwent CAT scan of the abdomen and pelvis showing colonic wall thickening felt to be related to her metastasis with a small amount of ascites and small urothelial thickening and possible urinary tract infection. Patient also had bilateral small pleural effusions that were noted on the computed tomography scan. Patient had been hospitalized since November 18 and clinical status continued to decline. Patient recently had extensive surgery and was status post exploratory laparotomy and found to have a large bowel obstruction with metastatic breast cancer and diffuse metastatic mesentery, status post subtotal colectomy and resection of the small bowel and end ileostomy. Multiple medical consultations were following. Given the extensiveness and seriousness of her metastatic disease patient has opted to proceed with hospice and has met with [facility] and will be comfort care measures only. Past Medical History Past Medical History: Cancer Additional Past Medical History / Comment(s): Metastatic lt breast cancer with metastases to peritoneal area. SIADH, Hydronephrosis, subclinical hypothyrodisim, protein calorie malnutrition,carpel tunnel right hand with sx. bilateral cataracts with sx, bowel obstruction History of Any Multi-Drug Resistant Organisms: MRSA Date of last positivie culture/infection: 11/18/19 MDRO Source:: MRSA URINE Past Surgical History: Appendectomy, Cholecystectomy, Hysterectomy Additional Past Surgical History / Comment(s): Lumpectomy involving the left breast, previous history of abdominal surgery for small bowel obstruction x2, right uretheral stent with removal, removal was: 6-8 weeks ago, left subclavian stent secondary to stenosis Past Anesthesia/Blood Transfusion Reactions: No Reported Reaction Past Psychological History: Anxiety Smoking Status: Never smoker Past Alcohol Use History: None Reported Past Drug Use History: None Reported - Past Family History Father Family Medical History: Cancer Additional Family Medical History / Comment(s): lung cancer Mother Family Medical History: Cancer Additional Family Medical History / Comment(s): lung cancer Medications and Allergies Home Medications Medication Instructions Recorded Confirmed Type RX: ALPRAZolam [Xanax] 0.5 mg PO HS PRN 01/02/19 12/04/19 History RX: Zolpidem Tartrate [Ambien Cr] 12.5 mg PO HS #3 tab 01/27/19 12/04/19 Rx RX: fentaNYL 75MCG/HR PATCH 75 mcg TRANSDERM Q72H 3 Days #1 05/09/19 12/04/19 Rx [Duragesic 75MCG/HR] patch Naproxen Sodium [Aleve] 220 mg PO DAILY PRN 11/18/19 12/04/19 History Ondansetron HCl [Zofran] 8 mg PO Q8H PRN 11/18/19 12/04/19 History RX: Albuterol Inhaler [Ventolin 2 puff INHALATION RT-Q6H PRN 11/18/19 12/04/19 History Hfa Inhaler] RX: Morphine Sulfate 15 mg PO Q48H PRN 11/18/19 12/04/19 History oxyCODONE HCL [Oxaydo] 5 mg PO Q48H PRN 11/18/19 12/04/19 History Allergies Allergy/AdvReac Type Severity Reaction Status Date / Time No Known Allergies Allergy Verified 12/04/19 18:24 Physical Exam Vitals: Vital Signs Pulse Resp 12/05/19 04:55 104 H 16 12/04/19 19:40 117 H 18 Intake and Output 12/04/19 12/05/19 12/05/19 22:59 06:59 14:59 Intake Total 0 Output Total 520 70 Balance 0 -520 -70 Intake: Oral 0 Output: Drainage 70 70 Left Abdomen 70 70 Urine 450 Other: Voiding Method Indwelling Catheter Indwelling Catheter Weight 42.638 kg 42.638 kg GENERAL: The patient is alert and oriented x3, not in any acute distress. Well developed, well nourished. HEENT: Pupils are round and equally reacting to light. EOMI. No scleral icterus. No conjunctival pallor. Normocephalic, atraumatic. No pharyngeal erythema. No thyromegaly. CARDIOVASCULAR: S1 and S2 present. No murmurs, rubs, or gallops. PULMONARY: Chest is clear to auscultation, no wheezing or crackles. -ABDOMEN: Soft, periumbilical tenderness, slightly distended, normoactive bowel sounds. No palpable organomegaly MUSCULOSKELETAL: No joint swelling or deformity. EXTREMITIES: No cyanosis, clubbing, or pedal edema. NEUROLOGICAL: Gross neurological examination did not reveal any focal deficits. SKIN: No rashes. no petechiae. Thrombosis Risk Factor Assmnt - Choose All That Apply Any of the Below Risk Factors Present?: Yes Assessment and Plan Assessment: Metastatic breast cancer with mets to colon and peritoneum Large bowel obstruction and diffuse metastatic mesentery secondary to breast cancer status post subtotal colectomy and small bowel resection and end ileostomy Febrile neutropenia, improved Acute diarrhea along with nausea due to chemotheraphy. Improved Bicytopenia due to chemotherapy. Improved and growth factors are stopped Hyponatremia likely hypoosmolar. Chronic back pain with compression fracture at T7 History of SIADH Hydronephrosis Subclinical hypothyroidism Right carpal tunnel syndrome History of bowel obstruction Anxiety Moderate protein calorie malnutrition No code, no CPR, no vent Plan: Patient has recently met with [facility] hospice and signed on to hospice services with comfort care measures only. [facility] hospice following closely. Hospice working on possible placement in the outpatient setting at either hospice house or in ECF to continue hospice care. Patient is currently tolerating pain and pain control is manageable. Will continue to monitor closely. Further recommendations to follow. Possible discharge in 24-48 hours.
[2019-12-06] MEDS: HYDROmorphone 2 MG/ML 1 ML SYRINGE IVP PRN ×9 (00:09→23:08)
[2019-12-06] MEDS: MORPHINE CONC SOLN 10mg/0.5mL ORAL SYRG PO PRN (13:04)
--- NOTE | 2019-12-06 14:46 | P.PN ---
Subjective Progress Note Date: 12/06/19 Principal diagnosis: This is a 69-year-old female with a known history of metastatic left breast cancer with metastases to the:, SIADH, subclinical hypothyroidism, moderate protein calorie malnutrition, anxiety and was recently transferred from [facility] with complaints of persistent diarrhea nausea and had recently been undergoing chemotherapy treatments. Patient was also found to be neutropenic and hyponatremic upon admission. Patient recently underwent CAT sc an of the abdomen and pelvis showing colonic wall thickening felt to be related to her metastasis with a small amount of ascites and small urothelial thickening and possible urinary tract infection. Patient also had bilateral small pleural effusions that were noted on the computed tomography scan. Patient had been hospitalized since November 18 and clinical status continued to decline. Patient recently had extensive surgery and was status post exploratory laparotomy and found to have a large bowel obstruction with metastatic breast cancer and diffuse metastatic mesentery, status post subtotal colectomy and resection of the small bowel and end ileostomy. Multiple medical consultations were following. Given the extensiveness and seriousness of her metastatic disease patient has opted to proceed with hospice and has met with [facility] and will be comfort care measures only. 12/06/2019 Patient seen and evaluated and follow-up and is currently hospice GIP with comfort care measures only and being closely monitored. [facility] following and working on placement near [place] for continued hospice care. No acute overnight issues. Patient states her pain is manageable at this time. No reports of chest pain, shortness of breath, or palpitations. Patient is tolerating diet. Patient is to meet with [facility] tomorrow to discuss possible options of hospice settings. Objective - Vital Signs Vital signs: Vital Signs Temp Pulse 104 H 12/05/19 04:55 Resp 16 12/06/19 00:00 BP Pulse Ox Intake & Output 12/05/19 12/06/19 12/06/19 18:59 06:59 18:59 Intake Total 250 360 Output Total 70 520 Balance 180 -160 Weight 42.638 kg Intake: Oral 250 360 Output: Drainage 70 20 Left Abdomen 70 20 Urine 500 Other: Voiding Method Indwelling Catheter Indwelling Catheter Indwelling Catheter - Exam GENERAL: The patient is alert and oriented x3, not in any acute distress. Well developed, well nourished. HEENT: Pupils are round and equally reacting to light. EOMI. No scleral icterus. No conjunctival pallor. Normocephalic, atraumatic. No pharyngeal erythema. No thyromegaly. CARDIOVASCULAR: S1 and S2 present. No murmurs, rubs, or gallops. PULMONARY: Chest is clear to auscultation, no wheezing or crackles. -ABDOMEN: Soft, periumbilical tenderness, slightly distended, normoactive bowel sounds. No palpable organomegaly MUSCULOSKELETAL: No joint swelling or deformity. EXTREMITIES: No cyanosis, clubbing, or pedal edema. NEUROLOGICAL: Gross neurological examination did not reveal any focal deficits. SKIN: No rashes. no petechiae. Assessment and Plan Assessment: Metastatic breast cancer with mets to colon and peritoneum Large bowel obstruction and diffuse metastatic mesentery secondary to breast cancer status post subtotal colectomy and small bowel resection and end ileostomy Febrile neutropenia, improved Acute diarrhea along with nausea due to chemotheraphy. Improved Bicytopenia due to chemotherapy. Improved and growth factors are stopped Hyponatremia likely hypoosmolar. Chronic back pain with compression fracture at T7 History of SIADH Hydronephrosis Subclinical hypothyroidism Right carpal tunnel syndrome History of bowel obstruction Anxiety Moderate protein calorie malnutrition No code, no CPR, no vent Plan: To continue with [facility] hospice services with comfort care measures only. [facility] following closely. Patient to meet with [facility] for possible placement with continued hospice care in the outpatient setting. [facility] following and working on a safe discharge plan. Continue with pain management. Patient is currently tolerating pain and pain control is manageable. Will continue to monitor closely. Further recommendations to follow. Possible discharge in 24 hours.
[2019-12-06] MEDS: ALPRAZolam 0.5 MG TAB PO PRN (16:50)
[2019-12-07] MEDS: HYDROmorphone 2 MG/ML 1 ML SYRINGE IVP PRN ×3 (02:39→08:13)
[2019-12-07] MEDS: ALPRAZolam 0.5 MG TAB PO PRN ×2 (04:00→21:22)
[2019-12-07] MEDS: MORPHINE CONC SOLN 10mg/0.5mL ORAL SYRG PO PRN ×5 (13:19→22:00)
[2019-12-07] MEDS: SCOPOLAMINE 1.5MG/72HR PATCH TRANSDERM SCH (16:40)
--- NOTE | 2019-12-07 17:17 | P.PN ---
Subjective Progress Note Date: 12/07/19 Principal diagnosis: This is a 69-year-old female with a known history of metastatic left breast cancer with metastases to the colon, SIADH, subclinical hypothyroidism, moderate protein calorie malnutrition, anxiety and was recently transferred from [facility] with complaints of persistent diarrhea nausea and had recently been undergoing chemotherapy treatments. Patient was also found to be neutropenic and hyponatremic upon admission. Patient recently underwent CAT scan of the abdomen and pelvis showing colonic wall thickening felt to be related to her metastasis with a small amount of ascites and small urothelial thickening and possible urinary tract infection. Patient also had bilateral small pleural effusions that were noted on the computed tomography scan. Patient had been hospitalized since November 18 and clinical status continued to decline. Patient recently had extensive surgery and was status post exploratory laparotomy and found to have a large bowel obstruction with metastatic breast cancer and diffuse metastatic mesentery, status post subtotal colectomy and resection of the small bowel and end ileostomy. Multiple medical consultations were following. Given the extensiveness and seriousness of her metastatic disease patient has opted to proceed with hospice and has met with [facility] and will be comfort care measures only. 12/06/2019 Patient seen and evaluated and follow-up and is currently hospice GIP with comfort care measures only and being closely monitored. [facility] following and working on placement near [place] for continued hospice care. No acute overnight issues. Patient states her pain is manageable at this time. No reports of chest pain, shortness of breath, or palpitations. Patient is tolerating diet. Patient is to meet with [facility] tomorrow to discuss possible options of hospice settings. 12/07/2019 Patient seen in follow up with no acute overnight issues. Patient is currently GIP with [facility] and was to meet with [facility] for discharge planning needs as she lives in [place] and wants to continue with hospice comfort measures only. Patient will transfer care to [facility] in [place] and they will assist with accommodations of having a safe discharge plan. Scripts provided for discharge. Patient states that her brother will also be helping in the outpatient setting to arrange all of this for discharge in the morning. Review of systems: Constitutional: Reports generalized fatigue, no reports of fevers or chills Cardiovascular: No reports of chest pain or palpitations Respiratory: No reports of shortness of breath or cough GI: no reports of nausea or vomiting : no reports of dysuria or retention Neurovascular: no reports of weakness or numbness Objective - Vital Signs Vital signs: Vital Signs Temp Pulse 104 H 12/05/19 04:55 Resp 16 12/06/19 00:00 BP Pulse Ox Intake & Output 12/06/19 12/07/19 12/07/19 18:59 06:59 18:59 Intake Total 500 Output Total 700 80 160 Balance -200 -80 -160 Intake: Oral 500 Output: Drainage 80 160 Left Abdomen 80 160 Urine 700 0 Other: Voiding Method Indwelling Catheter Indwelling Catheter Indwelling Catheter # Bowel Movements 0 0 - Exam GENERAL: The patient is alert and oriented x3, not in any acute distress. Well developed, well nourished. HEENT: Pupils are round and equally reacting to light. EOMI. No scleral icterus. No conjunctival pallor. Normocephalic, atraumatic. No pharyngeal erythema. No thyromegaly. CARDIOVASCULAR: S1 and S2 present. No murmurs, rubs, or gallops. PULMONARY: Chest is clear to auscultation, no wheezing or crackles. -ABDOMEN: Soft, periumbilical tenderness on palpation, slightly distended, normoactive bowel sounds. No palpable organomegaly MUSCULOSKELETAL: No joint swelling or deformity. EXTREMITIES: No cyanosis, clubbing, or pedal edema. NEUROLOGICAL: Gross neurological examination did not reveal any focal deficits. SKIN: No rashes. no petechiae. Assessment and Plan Assessment: Metastatic breast cancer with mets to colon and peritoneum Large bowel obstruction and diffuse metastatic mesentery secondary to breast cancer status post subtotal colectomy and small bowel resection and end ileostomy Febrile neutropenia, improved Acute diarrhea along with nausea due to chemotheraphy. Improved Bicytopenia due to chemotherapy. Improved and growth factors are stopped Hyponatremia likely hypoosmolar. Chronic back pain with compression fracture at T7 History of SIADH Hydronephrosis Subclinical hypothyroidism Right carpal tunnel syndrome History of bowel obstruction Anxiety Moderate protein calorie malnutrition No code, no CPR, no vent Plan: To continue with [facility] services with comfort care measures only. [facility] following closely. Patient met with [facility] and is arranging for safe discharge in the outpatient setting. [facility] will transition care to [facility] upon discharge. Continue with pain management. Patient is currently tolerating pain and pain control is manageable. Will continue to monitor closely. Further recommendations to follow. Discharge in 24 hours.
[2019-12-08] MEDS: MORPHINE CONC SOLN 10mg/0.5mL ORAL SYRG PO PRN ×3 (08:20→12:34)
[2019-12-08] MEDS: ALPRAZolam 0.5 MG TAB PO PRN (08:20)
--- NOTE | 2019-12-08 15:36 | P.DS ---
Providers Date of admission: 12/04/19 17:47 Expected date of discharge: 12/08/19 Attending physician: Scott Chawla MD Primary care physician: Stated None Hospital Course: Final diagnosis Metastatic breast cancer with mets to colon and peritoneum Large bowel obstruction and diffuse metastatic mesentery secondary to breast cancer status post subtotal colectomy and small bowel resection and end ileostomy Febrile neutropenia, improved Acute diarrhea along with nausea due to chemotheraphy. Improved Bicytopenia due to chemotherapy. Improved and growth factors are stopped Hyponatremia likely hypoosmolar. Chronic back pain with compression fracture at T7 History of SIADH Hydronephrosis Subclinical hypothyroidism Right carpal tunnel syndrome History of bowel obstruction Anxiety Moderate protein calorie malnutrition No code, no CPR, no vent Discharge disposition Patient is being discharged in a stable condition with guarded prognosis to Home With hospice. Total time taken is 35 minutes. History of present illness This is an 69-year-old female who was recently admitted with Multiple complex medical issues and was being closely monitored. Multiple medical consultations following. Patient recently underwent colectomy. Patient has a known history of metastatic breast cancer on the left with metastasis to the colon. Despite surgical intervention for large bowel obstruction patient's condition continue to not show real improvement. Patient opted for hospice services with comfort care only. Patient will be following up in the outpatient setting with hospice and will be discharged home today. Family assisting the patient with care in the home and further hospice treatment. Currently no reports of chest pain, shortness of breath, or palpitations. Patient is afebrile. No reports of nausea or vomiting and patient is tolerating diet. On exam vital signs are stable. Cardio S1, S2 are muffled. Respiratory shows diminished breath sounds at the bases No wheezing or rhonchi noted. Abdomen is soft and nontender. Nervous system shows No focal deficits. Please refer to medication reconciliation sheet for a list of medications. Patient Condition at Discharge: Fair Plan - Discharge Summary Discharge Rx Participant: No New Discharge Prescriptions: New Atropine Ophth Soln 1% 5Ml [Isopto Atropine 1% 5Ml] 2 drops SUBLINGUAL Q4HR PRN bottle PRN Reason: Excess Secretions Continue Zolpidem Tartrate [Ambien Cr] 12.5 mg PO HS #3 tab fentaNYL 75MCG/HR PATCH [Duragesic 75MCG/HR] 75 mcg TRANSDERM Q72H 3 Days #1 patch Morphine Sulfate 15 mg PO Q48H PRN PRN Reason: Pain Albuterol Inhaler [Ventolin Hfa Inhaler] 2 puff INHALATION RT-Q6H PRN PRN Reason: Shortness Of Breath Naproxen Sodium [Aleve] 220 mg PO DAILY PRN PRN Reason: Pain Ondansetron HCl [Zofran] 8 mg PO Q8H PRN PRN Reason: Nausea oxyCODONE HCL [Oxaydo] 5 mg PO Q48H PRN PRN Reason: Pain ALPRAZolam [Xanax] 0.5 mg PO HS PRN #12 tab PRN Reason: Anxiety Discharge Medication List Zolpidem Tartrate [Ambien Cr] 12.5 mg PO HS #3 tab 01/27/19 [Rx] fentaNYL 75MCG/HR PATCH [Duragesic 75MCG/HR] 75 mcg TRANSDERM Q72H 3 Days #1 patch 05/09/19 [Rx] Albuterol Inhaler [Ventolin Hfa Inhaler] 2 puff INHALATION RT-Q6H PRN 11/18/19 [History] Morphine Sulfate 15 mg PO Q48H PRN 11/18/19 [History] Naproxen Sodium [Aleve] 220 mg PO DAILY PRN 11/18/19 [History] Ondansetron HCl [Zofran] 8 mg PO Q8H PRN 11/18/19 [History] oxyCODONE HCL [Oxaydo] 5 mg PO Q48H PRN 11/18/19 [History] Atropine Ophth Soln 1% 5Ml [Isopto Atropine 1% 5Ml] 2 drops SUBLINGUAL Q4HR PRN bottle 12/06/19 [Rx] ALPRAZolam [Xanax] 0.5 mg PO HS PRN #12 tab 12/08/19 [Rx] Activity/Diet/Wound Care/Special Instructions: [facility] hospice working on discharge placement Activity as tolerated Continue current diet Continue with hospice [facility] Discharge Disposition: HOME WITH HOSPICE
== END 2019-12-08 12:46 | disposition hospice, home (50) | DRG 951 ==
LOC: 5NMEDONC 17:47
PROVIDERS: ADMIT Internal Medicine; ATTEND Internal Medicine
DX: Z51.5 Encounter for palliative care (principal); C78.5 Secondary malignant neoplasm of large intestine and rectum; C78.6 Secondary malignant neoplasm of retroperitoneum and peritoneum; E44.0 Moderate protein-calorie malnutrition; E87.1 Hypo-osmolality and hyponatremia; K56.609 Unspecified intestinal obstruction, unspecified as to partial versus complete obstruction; M48.54XA Collapsed vertebra, not elsewhere classified, thoracic region, initial encounter for fracture; N13.30 Unspecified hydronephrosis; C50.919 Malignant neoplasm of unspecified site of unspecified female breast; D70.9 Neutropenia, unspecified; E03.9 Hypothyroidism, unspecified; F41.9 Anxiety disorder, unspecified; G56.01 Carpal tunnel syndrome, right upper limb; G89.29 Other chronic pain; T45.1X5A Adverse effect of antineoplastic and immunosuppressive drugs, initial encounter; R19.7 Diarrhea, unspecified; Z80.1 Family history of malignant neoplasm of trachea, bronchus and lung; Z90.49 Acquired absence of other specified parts of digestive tract; Z90.710 Acquired absence of both cervix and uterus; Z66 Do not resuscitate; Z86.14 Personal history of Methicillin resistant Staphylococcus aureus infection; Z79.899 Other long term (current) drug therapy; R11.0 Nausea